=== PATIENT | female | born 1965 | race Caucasian/White ===

== ENCOUNTER 2019-10-18 08:44 | Outpatient (CLI) | payer MEDICARE, MEDICAID, SELFPAY ==
[2019-10-18 09:02] LABS: Basophils Absolute Auto 0.1 K/mm3 (0.0-0.1); Basophils Percent Auto 0.7 % (0.2-1.2); Eosinophils Absolute Auto 0.2 K/mm3 (0-0.3); Eosinophils Percent Auto 3.2 % (0-4.4); Hematocrit 46.6 % (37.0-47.0); Hemoglobin 14.7 g/dL (12.0-15.0); Immature Granulocyte Absolute 0.04 K/mm3 (0.00-0.031); Immature Granulocyte Percent A 0.5 % (0-0.5); Lymphocytes Absolute Auto 1.38 K/mm3 (0.9-3.2); Lymphocytes Percent Auto 18.6 % (18.3-44.2); Mean Corpuscular HGB Conc 31.5 g/dl (32-36); Mean Corpuscular Hemoglobin 27.6 pg (26-34); Mean Corpuscular Volume 87.6 fl (80-100); Mean Platelet Volume 8.7 fl (7.4-10.4); Monocytes Absolute Auto 0.6 K/mm3 (0.1-0.6); Monocytes Percent Auto 7.9 % (2.6-8.5); Neutrophils Absolute Auto 5.1 K/mm3 (1.3-6.7); Neutrophils Percent Auto 69.1 % (45.5-73.1); Platelet Count Result 398 k/mm3 (150-375); Red Blood Count 5.32 M/mm3 (4.2-5.4); Red Cell Distribution Width 14.7 % (11.5-14.5); White Blood Count 7.4 K/mm3 (4.5-10.0)
[2019-10-18 09:05] LABS: Blood Urea Nitrogen 11 mg/dL (8-26); Carbon Dioxide 26 mmol/L (22-30); Chloride 100 mmol/L (98-109); Estimated Glomerular Filt Rate > 60; Glucose 100 mg/dL (70-105); Potassium 4.3 mmol/L (3.5-4.9); Sodium 138 mmol/L (138-146)
[2019-10-18 12:16] LABS: Alanine Aminotransferase 39 U/L (4-35); Albumin Level 4.7 g/dL (3.5-5.1); Alkaline Phosphatase 111 U/L (38-126); Aspartate Amino Transferase 31 U/L (14-36); Bilirubin,Total 0.3 mg/dL (0.2-1.3); Blood Urea Nitrogen 12 mg/dL (7-17); Calcium 10.2 mg/dL (8.4-10.2); Carbon Dioxide 24 mmol/L (22-30); Chloride 97 mmol/L (98-107); Estimated Glomerular Filt Rate > 60; Glucose 101 mg/dL (65-105); Potassium 4.8 mmol/L (3.4-5.0); Sodium 140 mmol/L (137-145)
== END 2019-10-18 08:45 | disposition home or self-care (01) ==
LOC: ANHLAB 08:48
PROVIDERS: PCP Emergency Medicine; Visit Provider Internal Medicine Hematology & Oncology
DX: C81.91 Hodgkin lymphoma, unspecified, lymph nodes of head, face, and neck (principal)
CPT/HCPCS: 36415; 80048; 80053; 85025

== ENCOUNTER 2019-11-15 10:30 | Outpatient (CLI) | payer MEDICARE, MEDICAID, SELFPAY ==
[2019-11-15 11:44] LABS: Alanine Aminotransferase 46 U/L (4-35); Albumin Level 4.8 g/dL (3.5-5.1); Alkaline Phosphatase 98 U/L (38-126); Aspartate Amino Transferase 33 U/L (14-36); Bilirubin,Total 0.3 mg/dL (0.2-1.3); Blood Urea Nitrogen 11 mg/dL (7-17); Calcium 9.8 mg/dL (8.4-10.2); Carbon Dioxide 24 mmol/L (22-30); Chloride 103 mmol/L (98-107); Cholesterol 169 mg/dL (0-200); Estimated Glomerular Filt Rate > 60; Glucose 99 mg/dL (65-105); HDL Direct 39 mg/dL; Potassium 4.2 mmol/L (3.4-5.0); Sodium 138 mmol/L (137-145); Triglycerides 240 mg/dL (<150)
[2019-11-15 11:55] LABS: LDL Cholesterol Direct 126 mg/dL
[2019-11-15 12:54] LABS: Free T4 Free Thyroxine 1.52 ng/mL (0.78-2.19); Vitamin D 25 Hydroxy 37.2 ng/mL
[2019-11-15 12:59] LABS: Hemoglobin A1C 6.6 % (<5.7)
[2019-11-17 03:37] LABS: Triiodothyronine T3 Free 2.9 pg/mL (2.3-4.2)
[2019-11-17 05:49] LABS: Thyroid Peroxidase Antibodies <1 IU/mL (<9)
== END 2019-11-15 10:31 | disposition home or self-care (01) ==
PROVIDERS: PCP Emergency Medicine; Visit Provider Internal Medicine Endocrinology, Diabetes & Metabolism
DX: E11.9 Type 2 diabetes mellitus without complications (principal); E78.2 Mixed hyperlipidemia; E03.9 Hypothyroidism, unspecified; E55.9 Vitamin D deficiency, unspecified
CPT/HCPCS: 36415; 80053; 80061; 82306; 83036; 84439; 84443; 84481; 86376

== ENCOUNTER 2020-04-21 10:29 | Outpatient (CLI) | payer MEDICARE, MEDICAID, SELFPAY ==
[2020-04-21 10:52] LABS: Basophils Absolute Auto 0.1 K/mm3 (0.0-0.1); Basophils Percent Auto 0.8 % (0.2-1.2); Eosinophils Absolute Auto 0.3 K/mm3 (0-0.3); Eosinophils Percent Auto 3.2 % (0-4.4); Hematocrit 47.3 % (37.0-47.0); Hemoglobin 15.1 g/dL (12.0-15.0); Immature Granulocyte Absolute 0.05 K/mm3 (0.00-0.031); Immature Granulocyte Percent A 0.6 % (0-0.5); Lymphocytes Absolute Auto 1.57 K/mm3 (0.9-3.2); Lymphocytes Percent Auto 18.7 % (18.3-44.2); Mean Corpuscular HGB Conc 31.9 g/dl (32-36); Mean Corpuscular Volume 87.6 fl (80-100); Mean Platelet Volume 8.8 fl (7.4-10.4); Monocytes Absolute Auto 0.7 K/mm3 (0.1-0.6); Monocytes Percent Auto 7.8 % (2.6-8.5); Neutrophils Absolute Auto 5.8 K/mm3 (1.3-6.7); Neutrophils Percent Auto 68.9 % (45.5-73.1); Platelet Count Result 359 k/mm3 (150-375); Red Cell Distribution Width 15.2 % (11.5-14.5); White Blood Count 8.4 K/mm3 (4.5-10.0)
[2020-04-21 11:09] LABS: Atypical Lymphocytes Present; Platelet Estimate Adequate (Adequate)
[2020-04-21 13:43] LABS: Lactate Dehydrogenase 487 U/L (313-618)
[2020-04-21 16:37] LABS: Alanine Aminotransferase 73 U/L (4-35); Albumin Level 5.1 g/dL (3.5-5.1); Alkaline Phosphatase 110 U/L (38-126); Anion Gap 13 mmol/L (8-16); Aspartate Amino Transferase 69 U/L (14-36); Bilirubin,Total 0.3 mg/dL (0.2-1.3); Blood Urea Nitrogen 13 mg/dL (7-17); Carbon Dioxide 21 mmol/L (22-30); Chloride 101 mmol/L (98-107); Estimated Glomerular Filt Rate > 60; Glucose 122 mg/dL (65-105); Potassium 4.6 mmol/L (3.4-5.0); Sodium 135 mmol/L (137-145)
[2020-04-21 17:04] LABS: Erythrocyte Sedimentation Rate 6 mm/hr (0-20)
== END 2020-04-21 10:30 | disposition home or self-care (01) ==
PROVIDERS: PCP Emergency Medicine; Visit Provider Internal Medicine Hematology & Oncology
DX: C81.91 Hodgkin lymphoma, unspecified, lymph nodes of head, face, and neck (principal)
CPT/HCPCS: 36415; 80053; 83615; 85025; 85652

== ENCOUNTER 2020-06-12 10:06 | Outpatient (CLI) | payer MEDICARE, MEDICAID, SELFPAY ==
--- NOTE | ~2020-06-12 | CT_ITS ---
EXAMINATION: CT chest wo con DATE: 06/12/2020 11:13 INDICATION: COPD, lung nodule TECHNIQUE: Computed tomography (CT) of the chest was performed without intravenous contrast. The dose -length product (DLP) was 145.40 mGy-cm. Automated exposure control and iterative reconstruction tech [employer] were employed. COMPARISON: 06/10/2019 FINDINGS: There is severe emphysema. Again noted is a stable 12 mm pleural-based nodule of the right lower lobe abutting the diaphragm. No new or suspicious pulmonary nodule is identified. There is mild dependent atelectasis. No pleural effusion or pneumothorax is identified. No pathologically enlarged thoracic lymph nodes are identified. The heart size is normal. Calcified coronary artery atheroscler osis is noted. There is a moderate-sized sliding hiatal hernia. The liver is diffusely low in attenua tion when compared with the spleen, consistent with hepatic steatosis. A chronic compression fracture of the T9 vertebral body is unchanged. IMPRESSION: 1. Stable pleural-based nodule of the right lower lobe, consistent with scarring or prior infection. No suspicious pulmonary nodule identified. 2. Severe emphysema. Reviewed, dictated and finalized at location A. IMPRESSION: 1. Stable pleural-based nodule of the right lower lobe, consistent with scarrin g or prior infection. No suspicious pulmonary nodule identified. 2. Severe emphysema.
== END 2020-06-12 10:07 | disposition home or self-care (01) ==
PROVIDERS: PCP Emergency Medicine; Visit Provider Nurse Practitioner Adult Health
DX: J44.1 Chronic obstructive pulmonary disease with (acute) exacerbation (principal); R91.1 Solitary pulmonary nodule
CPT/HCPCS: 71250

== ENCOUNTER 2020-08-14 08:00 | Outpatient (CLI) | payer MEDICARE, MEDICAID, SELFPAY ==
--- NOTE | ~2020-08-14 | US_ITS ---
EXAMINATION: US thyroid DATE: 08/14/2020 08:29 INDICATION: Thyroid nodules TECHNIQUE: Multiple ultrasound images of the thyroid were obtained. COMPARISON: 11/20/2018 FINDINGS: The right thyroid lobe measures 4.1 x 1.6 x 2.0 cm. The left thyroid lobe measures 3.9 x 1.3 x 1.7 c m. And seen is heterogeneous decreased echogenicity and coarsened echotexture and mildly increased va scular flow on color Doppler throughout the thyroid. No discrete nodules identified. IMPRESSION: 1. Heterogeneous hypervascular thyroid consistent with chronic lymphocytic ([place]) thyroiditis. N o discrete thyroid nodules. Reviewed, dictated and finalized at location A. SCREW MAN IMPRESSION: 1. Heterogeneous hypervascular thyroid consistent with chronic lymphocytic ([place]) thyroiditis. No discrete thyroid nodules.
[2020-08-14 09:39] LABS: Hematocrit 43.9 % (37.0-47.0); Hemoglobin 14.3 g/dL (12.0-15.0); Mean Corpuscular HGB Conc 32.6 g/dl (32-36); Mean Corpuscular Hemoglobin 28.5 pg (26-34); Mean Corpuscular Volume 87.5 fl (80-100); Mean Platelet Volume 8.9 fl (7.4-10.4); Platelet Count Result 334 k/mm3 (150-375); Red Blood Count 5.02 M/mm3 (4.2-5.4); Red Cell Distribution Width 14.6 % (11.5-14.5); White Blood Count 9.4 K/mm3 (4.5-10.0)
[2020-08-14 09:42] LABS: Add Urine Microscopic? NO; Appearance Urine Clear (Clear); Bilirubin Urine Negative (Negative); Blood Urine Negative (Negative); Color Urine Yellow (Yellow); Glucose Urine UA Negative (Negative); Ketones Urine Negative (Negative); Leukocyte Esterase Ur Negative LEU/UL (NEGATIVE); Nitrate Urine Negative (Negative); Protein Urine Negative (Negative); Specific Grav Ur 1.014 (1.001-1.035); Urobilinogen Urine Negative mg/dL (<2.0)
[2020-08-14 10:04] LABS: Alanine Aminotransferase 87 U/L (4-35); Albumin Level 4.3 g/dL (3.5-5.1); Alkaline Phosphatase 123 U/L (38-126); Anion Gap 8 mmol/L (8-16); Aspartate Amino Transferase 116 U/L (14-36); Bilirubin,Total 0.3 mg/dL (0.2-1.3); Blood Urea Nitrogen 7 mg/dL (7-17); Calcium 9.5 mg/dL (8.4-10.2); Carbon Dioxide 29 mmol/L (22-30); Chloride 101 mmol/L (98-107); Cholesterol 213 mg/dL (0-200); Estimated Glomerular Filt Rate > 60; Glucose 151 mg/dL (65-105); HDL Direct 33 mg/dL; Potassium 4.3 mmol/L (3.4-5.0); Sodium 138 mmol/L (137-145); Triglycerides 408 mg/dL (<150)
[2020-08-14 10:14] LABS: LDL Cholesterol Direct 145 mg/dL
[2020-08-14 10:43] LABS: Hemoglobin A1C 7.5 % (<5.7)
[2020-08-14 11:12] LABS: Free T4 Free Thyroxine 0.85 ng/mL (0.78-2.19); Vitamin D 25 Hydroxy 20.5 ng/mL
[2020-08-14 14:53] LABS: Creatinine Urine 90.9 mg/dL
[2020-08-14 14:59] LABS: Microalbumin Urine Random 8.2 mg/L (0-16.7)
[2020-08-17 14:33] LABS: Triiodothyronine T3 Free 2.9 pg/mL (2.3-4.2)
== END 2020-08-14 08:01 | disposition home or self-care (01) ==
PROVIDERS: PCP Emergency Medicine; Referring Provider Internal Medicine Endocrinology, Diabetes & Metabolism; Visit Provider Emergency Medicine
DX: Z12.31 Encounter for screening mammogram for malignant neoplasm of breast (principal); E06.9 Thyroiditis, unspecified; E55.9 Vitamin D deficiency, unspecified; E78.5 Hyperlipidemia, unspecified; E03.9 Hypothyroidism, unspecified; K76.0 Fatty (change of) liver, not elsewhere classified; J44.9 Chronic obstructive pulmonary disease, unspecified; E11.9 Type 2 diabetes mellitus without complications
CPT/HCPCS: 36415; 76536; 80053; 80061; 81003; 82043; 82306; 83036; 84439; 84443; 84481; 85027

== ENCOUNTER 2020-09-05 07:49 | Outpatient (CLI) | payer MEDICARE, MEDICAID, SELFPAY ==
--- NOTE | ~2020-09-05 | MM_ITS ---
EXAMINATION: MM screening [facility] BI w saundra HISTORY: Screening TECHNIQUE: Craniocaudal and mediolateral oblique 3-D tomosynthesis images were obtained and synthetic 2-D images were generated. CAD analysis was submitted and interpreted. COMPARISON: Comparison to multiple prior studies sequentially, with oldest reviewed study dated 11/2014. BREAST PARENCHYMAL COMPOSITION: There are scattered areas of fibroglandular density. FINDINGS: The left breast is stable without evidence for malignancy. There is a new cluster of puncta te nonspecific calcifications in the lower central aspect of the right breast. No significant change to clustered punctate monomorphic calcifications upper outer quadrant of the right breast which were previously biopsied and proven benign. IMPRESSION: 1. New cluster of indeterminate right breast calcifications lower central aspect, middle third. 2. Magnification views are recommended. BI-RADS Category 0: Incomplete: Needs additional imaging evaluation. Reviewed, dictated and finalized at location A. RY MACHINE OPERATOR IMPRESSION: 1. New cluster of indeterminate right breast calcifications lower central aspec t, middle third. 2. Magnification views are recommended. BI-RADS Category 0: Incomplete: Needs additional imaging evaluation.
== END 2020-09-05 07:50 | disposition home or self-care (01) ==
LOC: ANHIMG 07:57
PROVIDERS: PCP Emergency Medicine; Visit Provider Emergency Medicine
DX: Z12.31 Encounter for screening mammogram for malignant neoplasm of breast (principal); R92.8 Other abnormal and inconclusive findings on diagnostic imaging of breast
CPT/HCPCS: 77063; 77067

== ENCOUNTER 2020-09-18 09:13 | Outpatient (CLI) | payer MEDICARE, MEDICAID, SELFPAY ==
--- NOTE | ~2020-09-18 | US_ITS ---
EXAMINATION: US abdomen limited EXAM DATE: 09/18/2020 09:48 INDICATION: Abnormal liver function tests. TECHNIQUE: Multiple grayscale and Doppler images of the abdomen right upper quadrant were obtained (stacey y a technologist who performed the scan) and subsequently reviewed. Comparison is made to prior exami nation from 07/10/2015. FINDINGS: The pancreatic head and body are normal in appearance. The pancreatic tail is not visualized. There is echogenic liver parenchyma, hepatic steatosis. There are no focal liver lesions identified. Th ere is no evidence of intrahepatic biliary duct dilation. Portal venous flow was seen in the hepatop edal, normal direction and has normal Doppler waveform. No right-sided hydronephrosis. Common bile duct measures 5 mm, which is normal. The gallbladder wall is normal in thickness, with ex pected amount of distention. No sonographic evidence of pericholecystic fluid. There is a 5 mm gall bladder polyp, either stable or decreased in size and requiring no further follow-up. Technologist p erforming exam reports patient did not demonstrate sonographic Thomason's sign. Please note that this sign is less reliable in patients who have received pain medication. IMPRESSION: 1. Hepatic steatosis. 2. Small gallbladder polyp. Reviewed, dictated and finalized at location B. PRESSER
--- NOTE | ~2020-09-18 | NM_ITS ---
. EXAMINATION: NM hepatobiliary w pharm DATE: 09/18/2020 12:16 INDICATION: Right upper quadrant abdominal pain. COMPARISON: Ultrasound 09/18/2020 TECHNIQUE: 5.4 mCi Tc-99m mebrofenin (Choletec) was administered intravenously. Scintigraphic images of the abdomen were obtained for one hour. Then, 1.8 mcg sincalide (Kinevac) IV was administered, an d imaging was continued for 30 minutes. FINDINGS: There is normal clearance of radiotracer from the blood pool. There is homogeneous tracer u ptake by the liver. Activity progresses to the bowel and gallbladder. Gallbladder ejection fraction (GBEF) was 74%. Note that most patients with gallbladder dysfunction have GBEF < 35%, which overlaps with the broad normal range of 10-90%. IMPRESSION: 1. Normal hepatobiliary scintigraphy. Reviewed, dictated and finalized at location A. HOL AND DRUG COUNSELOR
== END 2020-09-18 09:14 | disposition home or self-care (01) ==
PROVIDERS: PCP Emergency Medicine; Referring Provider Internal Medicine Endocrinology, Diabetes & Metabolism; Visit Provider Nurse Practitioner Family
DX: R74.8 Abnormal levels of other serum enzymes (principal); K76.0 Fatty (change of) liver, not elsewhere classified; K82.4 Cholesterolosis of gallbladder
CPT/HCPCS: 76705; 78227; A9537; J2805

== ENCOUNTER 2020-10-16 10:04 | Outpatient (CLI) | payer MEDICARE, MEDICAID, SELFPAY ==
[2020-10-16 10:28] LABS: Basophils Absolute Auto 0.1 K/mm3 (0.0-0.1); Eosinophils Absolute Auto 0.3 K/mm3 (0-0.3); Eosinophils Percent Auto 3.5 % (0-4.4); Hematocrit 48.5 % (37.0-47.0); Hemoglobin 15.2 g/dL (12.0-15.0); Immature Granulocyte Absolute 0.04 K/mm3 (0.00-0.031); Immature Granulocyte Percent A 0.5 % (0-0.5); Lymphocytes Absolute Auto 1.48 K/mm3 (0.9-3.2); Lymphocytes Percent Auto 17.9 % (18.3-44.2); Mean Corpuscular HGB Conc 31.3 g/dl (32-36); Mean Corpuscular Hemoglobin 27.6 pg (26-34); Mean Platelet Volume 8.7 fl (7.4-10.4); Monocytes Absolute Auto 0.5 K/mm3 (0.1-0.6); Monocytes Percent Auto 6.5 % (2.6-8.5); Neutrophils Absolute Auto 5.8 K/mm3 (1.3-6.7); Neutrophils Percent Auto 70.6 % (45.5-73.1); Platelet Count Result 373 k/mm3 (150-375); Red Blood Count 5.51 M/mm3 (4.2-5.4); Red Cell Distribution Width 14.9 % (11.5-14.5); White Blood Count 8.3 K/mm3 (4.5-10.0)
[2020-10-16 10:41] LABS: Blood Urea Nitrogen 13 mg/dL (8-26); Carbon Dioxide 27 mmol/L (22-30); Chloride 102 mmol/L (98-109); Estimated Glomerular Filt Rate > 60; Glucose 95 mg/dL (70-105); Potassium 4.2 mmol/L (3.5-4.9); Sodium 138 mmol/L (138-146)
[2020-10-16 13:19] LABS: Alanine Aminotransferase 129 U/L (4-35); Albumin Level 4.8 g/dL (3.5-5.1); Alkaline Phosphatase 93 U/L (38-126); Anion Gap 9 mmol/L (8-16); Aspartate Amino Transferase 137 U/L (14-36); Bilirubin,Total 0.5 mg/dL (0.2-1.3); Blood Urea Nitrogen 14 mg/dL (7-17); Calcium 10.2 mg/dL (8.4-10.2); Carbon Dioxide 28 mmol/L (22-30); Chloride 102 mmol/L (98-107); Estimated Glomerular Filt Rate > 60; Glucose 98 mg/dL (65-105); Lactate Dehydrogenase 609 U/L (313-618); Potassium 4.8 mmol/L (3.4-5.0); Sodium 139 mmol/L (137-145)
[2020-10-16 13:55] LABS: Erythrocyte Sedimentation Rate 4 mm/hr (0-20)
== END 2020-10-16 10:05 | disposition home or self-care (01) ==
LOC: ANHLAB 10:07
PROVIDERS: PCP Emergency Medicine; Visit Provider Internal Medicine Hematology & Oncology
DX: C81.91 Hodgkin lymphoma, unspecified, lymph nodes of head, face, and neck (principal)
CPT/HCPCS: 36415; 80048; 80053; 83615; 85025; 85652

== ENCOUNTER 2020-11-24 12:07 | Outpatient (CLI) | payer MEDICARE, MEDICAID, SELFPAY ==
[2020-11-24 13:00] LABS: Alanine Aminotransferase 83 U/L (4-35); Albumin Level 4.6 g/dL (3.5-5.1); Alkaline Phosphatase 96 U/L (38-126); Anion Gap 9 mmol/L (8-16); Aspartate Amino Transferase 85 U/L (14-36); Bilirubin,Total 0.4 mg/dL (0.2-1.3); Blood Urea Nitrogen 12 mg/dL (7-17); Calcium 9.7 mg/dL (8.4-10.2); Carbon Dioxide 25 mmol/L (22-30); Chloride 104 mmol/L (98-107); Cholesterol 234 mg/dL (0-200); Estimated Glomerular Filt Rate > 60; Glucose 100 mg/dL (65-105); HDL Direct 40 mg/dL; Potassium 4.3 mmol/L (3.4-5.0); Sodium 138 mmol/L (137-145); Triglycerides 248 mg/dL (<150)
[2020-11-24 13:14] LABS: LDL Cholesterol Direct 159 mg/dL
[2020-11-24 13:32] LABS: Creatinine Urine 56.9 mg/dL
[2020-11-24 13:47] LABS: Free T4 Free Thyroxine 1.77 ng/mL (0.78-2.19); Vitamin D 25 Hydroxy 47.7 ng/mL
[2020-11-24 13:48] LABS: MALB Creatinine Ratio < 10.5 mg/g (0-30); Microalbumin Urine Random < 6.0 mg/L (0-16.7)
[2020-11-27 03:27] LABS: Thyroid Peroxidase Antibodies <1 IU/mL (<9)
[2020-11-27 08:09] LABS: Triiodothyronine T3 Free 2.9 pg/mL (2.3-4.2)
== END 2020-11-24 12:08 | disposition home or self-care (01) ==
PROVIDERS: PCP Emergency Medicine; Visit Provider Nurse Practitioner Family
DX: E78.2 Mixed hyperlipidemia (principal); E11.65 Type 2 diabetes mellitus with hyperglycemia; E55.9 Vitamin D deficiency, unspecified; E06.3 Autoimmune thyroiditis
CPT/HCPCS: 36415; 77065; 80053; 80061; 82043; 82306; 83036; 84439; 84443; 84481; 86376

== ENCOUNTER 2020-11-24 12:33 | Outpatient (CLI) | payer MEDICARE, MEDICAID, SELFPAY ==
--- NOTE | ~2020-11-24 | MM_ITS ---
EXAMINATION: MM diagnostic mammo unilat RT HISTORY: Follow-up right breast calcifications TECHNIQUE: Additional 3-D tomosynthesis images of the right breast were performed and synthetic 2-D i mages were generated. CAD analysis was submitted and interpreted. COMPARISON: Comparison to multiple prior studies sequentially, with oldest reviewed study dated 06/06. BREAST PARENCHYMAL COMPOSITION: Breast composed of scattered areas of fibroglandular density. FINDINGS: There is a cluster of indeterminate calcifications in the upper outer quadrant of the right breast, middle third. There are no suspicious masses or architectural distortion. IMPRESSION: 1. Cluster of indeterminate right breast calcifications, upper outer quadrant, middle third. 2. Stereotactic right breast biopsy recommended. BI-RADS category 4, suspicious findings. Reviewed, dictated and finalized at location A.
== END 2020-11-24 12:34 | disposition home or self-care (01) ==
PROVIDERS: PCP Emergency Medicine; Visit Provider Emergency Medicine
DX: R92.8 Other abnormal and inconclusive findings on diagnostic imaging of breast (principal)
CPT/HCPCS: 77065

== ENCOUNTER 2020-12-07 12:50 | Outpatient (CLI) | payer MEDICARE, MEDICAID, SELFPAY ==
--- NOTE | ~2020-12-07 | MM_ITS ---
MM consultation 12/07/2020 14:26 Indication: Clustered calcifications lower outer quadrant of the right breast. Biopsy requested. Procedure: Written informed consent was obtained from the patient following discussion of risk and be nefits of stereotactic biopsy procedure. Multiple positions were attempted to localize the calcificat ions of interest in the right breast without success due to the faint density of the calcifications. Biopsy could not be performed and was discussed with the patient. Comparison: 11/24/2020 Findings: Procedure was canceled due to inability to localize the calcifications of interest during s tereotactic positioning. Impression: 1: Unsuccessful stereotactic right breast biopsy attempt. Recommend biopsy using wire localization gu ided surgical biopsy for further assessment. Alternatively, the patient may follow-up in 2 months for repeat diagnostic mammogram given that the initial screening mammogram was performed on 09/05/2022 t o achieve 6 months stability. Findings discussed with the patient. [facility] for determining follow-up examination/procedure. Reviewed, dictated and finalized at location B. Impression: 1: Unsuccessful stereotactic right breast biopsy attempt. Recommend biopsy usin g wire localization guided surgical biopsy for further assessment. Alternativel y, the patient may follow-up in 2 months for repeat diagnostic mammogram given that the initial screening mammogram was performed on 09/05/2022 to achieve 6 m onths stability. Findings discussed with the patient. Recommend consultation wi patient's physician for determining follow-up examination/procedure.
--- NOTE | ~2020-12-07 | MM_ITS ---
EXAMINATION: MM consultation INDICATION: Right breast calcifications COMPARISON: Mammograms dated 11/24/2020, 09/05/2020, and 05/19/2015 FINDINGS: Patient was scheduled for wire localization and excisional biopsy of grouped punctate calci fications in the anterior third of the slightly outer breast at the 7:00 location 4 cm from the nippl e. When compared to prior mammograms, the group of punctate calcifications identified for localizatio n appears to be stable. No suspicious mass or architectural distortion are identified. As such, short -term interval follow-up is recommended rather than surgical removal. These findings and recommendati on were discussed with Dr. Sanchez on 12/25/2020. IMPRESSION: 1. Probably benign right breast calcifications. 2. Recommend six month follow-up right diagnostic mammogram. BI-RADS category 3, probably benign findings. Reviewed, dictated and finalized at location A.
== END 2020-12-07 12:51 | disposition home or self-care (01) ==
PROVIDERS: PCP Emergency Medicine; Visit Provider Emergency Medicine
DX: R92.1 Mammographic calcification found on diagnostic imaging of breast (principal)
CPT/HCPCS: 99199

== ENCOUNTER 2020-12-22 10:39 | Outpatient (CLI) | payer MEDICARE, MEDICAID, SELFPAY ==
--- NOTE | 2020-12-22 10:40 | ECG_ITS ---
Measurements Intervals [place] Rate: 68 P: -4 [place]: 150 QRS: -43 QRSD: 90 T: 16 QT: 379 QTc: 406 Interpretive Statements SINUS RHYTHM LEFT AXIS DEVIATION INCOMPLETE RIGHT BUNDLE BRANCH BLOCK BORDERLINE T WAVE ABNORMALITY- ANTERIOR LEADS BASELINE ARTIFACT- I, II, III, AVR, AVL, AVF, V4-V6 BORDERLINE ECG Electronically Signed On 12-22-2020 11:57:11 CDT by Javier Radford D.O.
== END 2020-12-22 10:40 | disposition home or self-care (01) ==
LOC: ANHSURGERY 10:40
PROVIDERS: PCP Emergency Medicine; Visit Provider Surgery
DX: E78.5 Hyperlipidemia, unspecified (principal); F17.210 Nicotine dependence, cigarettes, uncomplicated; E11.9 Type 2 diabetes mellitus without complications; I45.10 Unspecified right bundle-branch block
CPT/HCPCS: 93005

== ENCOUNTER 2020-12-27 08:33 | Outpatient (CLI) | payer MEDICARE, MEDICAID, SELFPAY ==
[2020-12-27 08:45] VITALS: PULSE 74; O2SAT 96
[2020-12-27 08:50] VITALS: PULSE 92; O2SAT 86
[2020-12-27 08:55] VITALS: PULSE 96; O2SAT 88
[2020-12-27 09:00] VITALS: PULSE 98; O2SAT 90
[2020-12-27 09:15] VITALS: PULSE 76; O2SAT 95
--- NOTE | 2020-12-27 09:50 | HOMEO2EVAL ---
Evaluation was performed at [facility] Home Oxygen Evaluation RC: Home Oxygen (O2) Evaluation Start: 12/27/20 09:44 Freq: Status: Active Protocol: RPE Activity Type Activity Date Activity User E-Sign Co-Sign Detail Recorded Client Recorded Date Recorded By Document 12/27/20 08:45 [email or web address] [id number] 12/27/20 09:50 KMV Document 12/27/20 08:50 [email or web address] [email or web address] 12/27/20 09:50 KMV Document 12/27/20 08:55 KMV [email or web address] 12/27/20 09:50 KMV Document 12/27/20 09:00 [email or web address] [email or web address] 12/27/20 09:50 KMV Document 12/27/20 09:15 [email or web address] [id number] 12/27/20 09:50 KMV 12/27/20 12/27/20 12/27/20 08:45 08:50 08:55 Home O2 Evaluation Test Phase Resting Exercise Exercise Oxygen Delivery Room Air Room Air Nasal Cannula Oxygen Flow Rate (L/min) 1 Pulse Oximetry (90-100 %) 96 86 L 88 L Pulse Rate (60-100 beats/min) 74 92 96 Activity Tolerance Ambulation Distance (feet) Treatment Charges O2 Evaluation - Outpatient 12/27/20 12/27/20 09:00 09:15 Home O2 Evaluation Test Phase Exercise Resting Oxygen Delivery Nasal Cannula Room Air Oxygen Flow Rate (L/min) 2 Pulse Oximetry (90-100 %) 90 95 Pulse Rate (60-100 beats/min) 98 76 Activity Tolerance Good Ambulation Distance (feet) 1,000 Treatment Charges
== END 2020-12-27 08:34 | disposition home or self-care (01) ==
PROVIDERS: PCP Emergency Medicine; Visit Provider Internal Medicine Endocrinology, Diabetes & Metabolism
DX: R06.00 Dyspnea, unspecified (principal)
CPT/HCPCS: 94618

== ENCOUNTER 2021-02-28 09:00 | Outpatient (CLI) | payer MEDICARE, MEDICAID, SELFPAY ==
[2021-02-28 10:18] LABS: Alanine Aminotransferase 87 U/L (4-35); Albumin Level 4.4 g/dL (3.5-5.1); Alkaline Phosphatase 90 U/L (38-126); Anion Gap 9 mmol/L (8-16); Aspartate Amino Transferase 106 U/L (14-36); Bilirubin,Total 0.4 mg/dL (0.2-1.3); Blood Urea Nitrogen 9 mg/dL (7-17); Calcium 10.4 mg/dL (8.4-10.2); Carbon Dioxide 29 mmol/L (22-30); Chloride 103 mmol/L (98-107); Cholesterol 234 mg/dL (0-200); Estimated Glomerular Filt Rate > 60; Glucose 91 mg/dL (65-105); HDL Direct 46 mg/dL; Potassium 4.4 mmol/L (3.4-5.0); Sodium 141 mmol/L (137-145); Triglycerides 231 mg/dL (<150)
[2021-02-28 10:29] LABS: Hemoglobin A1C 6.3 % (<5.7); LDL Cholesterol Direct 142 mg/dL
[2021-02-28 11:35] LABS: MALB Creatinine Ratio < 25.0 mg/g (0-30); Microalbumin Urine Random < 6.0 mg/L (0-16.7)
[2021-02-28 11:43] LABS: Free T4 Free Thyroxine 1.35 ng/mL (0.78-2.19)
== END 2021-02-28 09:01 | disposition home or self-care (01) ==
PROVIDERS: PCP Emergency Medicine; Visit Provider Internal Medicine Endocrinology, Diabetes & Metabolism
DX: R73.03 Prediabetes (principal); E03.9 Hypothyroidism, unspecified; E78.2 Mixed hyperlipidemia
CPT/HCPCS: 36415; 80053; 80061; 82043; 83036; 84439; 84443

== ENCOUNTER 2021-04-16 09:12 | Outpatient (CLI) | payer MEDICARE, MEDICAID, SELFPAY ==
[2021-04-16 09:34] LABS: Basophils Absolute Auto 0.1 K/mm3 (0.0-0.1); Basophils Percent Auto 0.7 % (0.2-1.2); Eosinophils Absolute Auto 0.3 K/mm3 (0-0.3); Eosinophils Percent Auto 3.9 % (0-4.4); Hematocrit 45.4 % (37.0-47.0); Hemoglobin 14.5 g/dL (12.0-15.0); Immature Granulocyte Absolute 0.07 K/mm3 (0.00-0.031); Immature Granulocyte Percent A 0.8 % (0-0.5); Lymphocytes Percent Auto 16.2 % (18.3-44.2); Mean Corpuscular HGB Conc 31.9 g/dl (32-36); Mean Corpuscular Hemoglobin 28.3 pg (26-34); Mean Corpuscular Volume 88.5 fl (80-100); Mean Platelet Volume 8.9 fl (7.4-10.4); Monocytes Absolute Auto 0.5 K/mm3 (0.1-0.6); Monocytes Percent Auto 6.1 % (2.6-8.5); Neutrophils Absolute Auto 6.3 K/mm3 (1.3-6.7); Neutrophils Percent Auto 72.3 % (45.5-73.1); Platelet Count Result 301 k/mm3 (150-375); Red Blood Count 5.13 M/mm3 (4.2-5.4); Red Cell Distribution Width 14.8 % (11.5-14.5); White Blood Count 8.7 K/mm3 (4.5-10.0)
[2021-04-16 09:38] LABS: Blood Urea Nitrogen 12 mg/dL (8-26); Carbon Dioxide 27 mmol/L (22-30); Chloride 100 mmol/L (98-109); Estimated Glomerular Filt Rate > 60; Glucose 188 mg/dL (70-105); Sodium 142 mmol/L (138-146)
[2021-04-16 12:42] LABS: Alanine Aminotransferase 82 U/L (4-35); Albumin Level 4.2 g/dL (3.5-5.1); Alkaline Phosphatase 112 U/L (38-126); Anion Gap 7 mmol/L (8-16); Aspartate Amino Transferase 80 U/L (14-36); Bilirubin,Total 0.4 mg/dL (0.2-1.3); Blood Urea Nitrogen 12 mg/dL (7-17); Calcium 9.9 mg/dL (8.4-10.2); Carbon Dioxide 27 mmol/L (22-30); Chloride 105 mmol/L (98-107); Estimated Glomerular Filt Rate > 60; Glucose 183 mg/dL (65-110); Lactate Dehydrogenase 477 U/L (313-618); Potassium 4.3 mmol/L (3.4-5.0); Sodium 139 mmol/L (137-145)
== END 2021-04-16 09:13 | disposition home or self-care (01) ==
PROVIDERS: PCP Emergency Medicine; Visit Provider Internal Medicine Hematology & Oncology
DX: C81.91 Hodgkin lymphoma, unspecified, lymph nodes of head, face, and neck (principal)
CPT/HCPCS: 36415; 80048; 80053; 83615; 85025

== ENCOUNTER → 2021-06-30 02:53 | Outpatient (CLI) | payer MEDICARE, MEDICAID, SELFPAY ==
[2021-06-30 18:07] LABS: SARS-CoV-2 RNA PCR Negative
== END ==
PROVIDERS: PCP Emergency Medicine; Visit Provider Nurse Practitioner
DX: R05.9 Cough, unspecified (principal); Z20.822 Contact with and (suspected) exposure to COVID-19
CPT/HCPCS: C9803; U0003; U0005

== ENCOUNTER 2021-07-10 11:08 | Emergency (ER) | payer MEDICARE, MEDICAID, SELFPAY ==
--- NOTE | ~2021-07-10 | XR_ITS ---
EXAMINATION: XR chest 2V DATE: 07/10/2021 11:53 INDICATION: Shortness of breath TECHNIQUE: PA and lateral views of the chest are obtained. COMPARISON: 07/25/2017 FINDINGS: Lucencies of the upper lung zones are consistent with emphysema. The lungs are free of acut e opacities. There is no pleural effusion or pneumothorax. The cardiomediastinal silhouette is normal . There is mild thoracic spondylosis. IMPRESSION: 1. Emphysema. Reviewed, dictated and finalized at location B. IMPRESSION: 1. Emphysema.
[2021-07-10 11:17] VITALS: BP 147/85; PULSE 100; RESP 14; TEMP 36.7; O2SAT 95
--- NOTE | 2021-07-10 11:17 | ECG_ITS ---
Measurements Intervals [place] Rate: 86 P: 32 [place]: 146 QRS: -41 QRSD: 82 T: 13 QT: 353 QTc: 424 Interpretive Statements SINUS RHYTHM LEFT AXIS DEVIATION BORDERLINE T WAVE ABNORMALITY- ANT/INF LEADS BASELINE ARTIFACT- I, II, III, AVR, AVL, AVF, V1-V6 BORDERLINE ECG Electronically Signed On 07-10-2021 11:52:06 CDT by Javier Radford D.O.
[2021-07-10 11:39] LABS: Basophils Absolute Auto 0.1 K/mm3 (0.0-0.1); Basophils Percent Auto 0.7 % (0.2-1.2); Eosinophils Absolute Auto 0.3 K/mm3 (0-0.3); Eosinophils Percent Auto 2.6 % (0-4.4); Hematocrit 48.4 % (37.0-47.0); Hemoglobin 15.5 g/dL (12.0-15.0); Immature Granulocyte Absolute 0.13 K/mm3 (0.00-0.031); Immature Granulocyte Percent A 1.2 % (0-0.5); Lymphocytes Absolute Auto 1.77 K/mm3 (0.9-3.2); Lymphocytes Percent Auto 15.7 % (18.3-44.2); Mean Corpuscular Hemoglobin 29.2 pg (26-34); Mean Corpuscular Volume 91.3 fl (80-100); Mean Platelet Volume 9.6 fl (7.4-10.4); Monocytes Absolute Auto 0.8 K/mm3 (0.1-0.6); Monocytes Percent Auto 6.7 % (2.6-8.5); Neutrophils Absolute Auto 8.2 K/mm3 (1.3-6.7); Neutrophils Percent Auto 73.1 % (45.5-73.1); Platelet Count Result 320 k/mm3 (150-375); Red Cell Distribution Width 14.7 % (11.5-14.5); White Blood Count 11.3 K/mm3 (4.5-10.0)
[2021-07-10 12:18] LABS: Anion Gap 12 mmol/L (8-16); Blood Urea Nitrogen 15 mg/dL (7-17); Calcium 10.9 mg/dL (8.4-10.2); Carbon Dioxide 23 mmol/L (22-30); Chloride 103 mmol/L (98-107); Estimated Glomerular Filt Rate > 60; Glucose 121 mg/dL (65-110); Potassium 4.5 mmol/L (3.4-5.0); Sodium 138 mmol/L (137-145)
[2021-07-10] MEDS: IPRATROPIUM BR 0.02% INH SOLN 0.5 MG/2.5 ML VIAL INHALATION (14:08)
[2021-07-10] MEDS: ALBUTEROL SULFATE NEB 2.5 MG/0.5 ML INH 5 MG INHALATION (14:08)
--- NOTE | 2021-07-10 14:13 | ED.SOB ---
HPI - SOB/Dyspnea General Chief Complaint: Shortness of Breath/Dyspnea Stated Complaint: COPD EXACERBATION Time Seen by Provider: 07/10/21 13:50 Source: patient Mode of arrival: ambulatory Limitations: no limitations History of Present Illness HPI Narrative: This is a 56 year old female that presents to the ER for shortness of breath over the last week. Reports she saw her petroleum refining firer and has finished a Z pack and 5 days of a steroid with little relief. Reports she is supposed to wear 2L NC at all times, but did not bring it with her as it is too heavy. Does report a dry cough and some pain her right shoulder blade. Denies fever, or lower extremity edema. Related Data Home Medications Medication Instructions Recorded Confirmed albuterol sulfate 90 mcg/actuation 1 inh INHALATION Q4-6H PRN 12/13/20 12/20/20 breath activated powder inhaler alirocumab 75 mg/mL subcutaneous 75 mg SUBCUT [id number] 12/13/20 12/20/20 pen injector budesonide-formoterol HFA 160 2 puff INHALATION BID 12/13/20 12/20/20 mcg-4.5 mcg/actuation aerosol inhaler cholecalciferol (vitamin D3) 1,250 1,250 mcg PO WEEKLY 12/13/20 12/20/20 mcg (50,000 unit) capsule exenatide microspheres 2 mg/0.85 2 mg SUBCUT WEEKLY 12/13/20 12/20/20 mL subcutaneous auto-injector fenofibrate nanocrystallized 145 145 mg PO DAILY 12/13/20 12/20/20 mg tablet levothyroxine 100 mcg capsule 112 mcg PO DAILY 12/13/20 12/20/20 empagliflozin [Jardiance] 25 mg PO DAILY 12/20/20 12/20/20 icosapent ethyl [Vascepa] 2 g PO BID 12/20/20 12/20/20 Allergies Allergy/AdvReac Type Severity Reaction Status Date / Time latex Allergy Mild ITCHING Verified 12/20/20 09:19 Review of Systems Review of Systems: CONSTITUTIONAL: Denies fever CARDIOVASCULAR: Denies chest pain, or edema. RESPIRATORY: Reports cough and dyspnea. All systems reviewed & are unremarkable except as noted in HPI and below PMFSH Past Medical History Medical History Asthma Emphysema/COPD GERD (gastroesophageal reflux disease) High cholesterol History of gastric ulcer History of stroke Hodgkin lymphoma Hypothyroid Surgical History Surgical History H/O hand surgery H/O lymph node biopsy H/O right inguinal hernia repair H/O submandibular gland removal H/O: hysterectomy History of appendectomy History of bone marrow biopsy History of cardiac cath History of removal of Port-a-Cath Family History Family History Father Diabetes mellitus Grandparent Lymphoma Other Ovarian cancer Other Family history of cardiovascular disease Family history of malignant neoplasm Social History Social History Smoking packs per day: 1.25 Smoking cigarettes per day: 25.0 Years smoked: 40 Smoking pack-years: 50.00 Smoking status: Current every day smoker Tobacco type: cigarettes Second hand tobacco smoke exposure: Yes Additional smoking assessment comments: 1-2 PPD Alcohol intake: never Substance use: never Substance use type: does not use Spiritual care concerns: No Exam Narrative: GENERAL: Well-appearing, well-nourished, and in no acute distress. HEAD: Normocephalic, atraumatic. EYES: EOMI. ENT: Nares clear, no rhinorrhea or epistaxis. Mucous membranes moist. Oropharynx without tonsillar hypertrophy exudate or other lesions. Bilateral TMs pearly barragan non-bulging NECK: Supple. No adenopathy or masses. CHEST: No respiratory distress. Lung sounds mildly diminished throughout. No wheezes, rales or rhonchi HEART: Regular rate and rhythm. No murmur heard. Normal peripheral pulses. EXTREMITIES: Normal range of motion. No edema. SKIN: Warm, dry, no rash. NEURO: No focal deficits. Alert and oriented x3. PSYCH: Normal mood and affect Course Consultations Consulta
[2021-07-10 14:17] VITALS: PULSE 86; RESP 18; O2SAT 92
[2021-07-10 14:22] LABS: Alveolar/Arterial O2 Gradient 39.2 mmHg; Base Excess ABG 0.2 mEq/l (+/-2.0); Carboxyhemoglobin 5.3 % THb (0-2.0); Fractional Inspired Oxygen 21 %; HCO3 ABG 25.2 mEq/l (22.0-26.0); Methemoglobin ABG 0.2 %THb (0-1.5); Oxygen Content ABG 19.1 %vol (16.0-22.0); Oxygen Saturation ABG 91.1 % (95.0-100.0); Oxyhemoglobin 86.2 % THb (90.0-100.0); PCO2 ABG 41.9 mmHg (35.0-45.0); PO2 ABG 60.4 mmHg (80.0-100.0); PO2 FiO2 Ratio Arterial Blood 2.88 %; Reduced Hemoglobin 8.3 %THb (0-5.0); Total Hemoglobin 15.8 g/dL (12.0-18.0); pH ABG 7.397 (7.350-7.450)
[2021-07-10 14:23] LABS: Device ROOM AIR; Modified Allen's Test Pass; Site Drawn LEFT RADIAL
[2021-07-10 14:25] VITALS: PULSE 87; O2SAT 94
[2021-07-10] MEDS: methylPREDNISolone SOD SUCC 125 MG VIAL IV PUSH (14:27)
[2021-07-10 14:46] LABS: INR 0.9; Prothrombin Time 11.7 Seconds (11.1-14.7)
[2021-07-10 14:47] LABS: Partial Thromboplastin Time 31.6 SECONDS (22.3-36.8)
[2021-07-10 14:53] LABS: D Dimer 0.27 ug/mL (<0.48)
[2021-07-10 14:57] LABS: Troponin I < 0.012 ng/mL (0.000-0.034)
[2021-07-10 15:59] LABS: NT Pro B Type Natriuretic Pept 46 pg/mL (5-100)
[2021-07-10 16:56] VITALS: BP 139/95; PULSE 81; RESP 18; O2SAT 98
== END 2021-07-10 16:59 | disposition home or self-care (01) ==
PROVIDERS: Physician Assistant; Emergency Provider Emergency Medicine; PCP Emergency Medicine
DX: J44.1 Chronic obstructive pulmonary disease with (acute) exacerbation (principal); F17.210 Nicotine dependence, cigarettes, uncomplicated; K21.9 Gastro-esophageal reflux disease without esophagitis; E03.9 Hypothyroidism, unspecified; E78.5 Hyperlipidemia, unspecified
CPT/HCPCS: 36415; 36600; 71046; 80048; 82375; 82805; 83050; 83880; 84484; 85025; 85380; 85610; 85730; 93005; 94640; 96374; 99284; J2930

== ENCOUNTER 2021-09-24 17:39 | Inpatient (IN) | payer MEDICARE, MEDICAID, SELFPAY ==
--- NOTE | ~2021-09-24 | XR_ITS ---
EXAMINATION: XR chest 1V portable DATE: 09/24/2021 19:59 INDICATION: Cough. Shortness of breath. TECHNIQUE: A single frontal view of the chest was obtained. COMPARISON: Chest 2 views 07/10/2021, chest CT 06/12/2020 FINDINGS: There are lucencies in the upper lungs, consistent with emphysema. There are airspace opaci ties in right mid and lower lung zones. There are airspace opacities in all left lung zones, worst in the mid and lower lung zones. No pleural effusion or pneumothorax. The heart size is normal. IMPRESSION: 1. Diffuse lung disease, worst in the mid and lower lung zones, consistent with pneumonia. 2. Severe emphysema. Reviewed, dictated and finalized at location A. TRONIC EQUIPMENT SET UP OPERATOR
--- NOTE | ~2021-09-24 | CT_ITS ---
EXAMINATION:CT diagnostic chest wo con DATE: 09/26/2021 20:45 INDICATION: Pneumonia. TECHNIQUE: Computed tomography (CT) of the chest was performed without intravenous contrast. Automate d exposure control and iterative reconstruction technique were employed. The dose-length product (DLP ) was 344.67 mGy-cm. COMPARISON: Chest CT 06/12/2020, chest single view 09/24/2021 FINDINGS: There is severe emphysema. There is mild atelectasis bilaterally. No pleural effusion. The heart size is normal. There are coronary artery calcifications. No pericardial effusion. There is dif fuse hepatic steatosis. There is mild thoracic spondylosis. There is a chronic compression fracture o f T9. IMPRESSION: 1. Severe emphysema. Reviewed, dictated and finalized at location A. F LEARNING OFFICER IMPRESSION: 1. Severe emphysema.
[2021-09-24 17:45] VITALS: BP 151/72; PULSE 97; RESP 20; O2SAT 84
[2021-09-24 19:33] VITALS: BP 126/80; PULSE 81; RESP 20; O2SAT 97
[2021-09-24 19:35] VITALS: PULSE 81; O2SAT 97
--- NOTE | 2021-09-24 19:47 | ECG_ITS ---
Measurements Intervals [place] Rate: 84 P: 3 [place]: 146 QRS: -41 QRSD: 86 T: 29 QT: 369 QTc: 437 Interpretive Statements SINUS RHYTHM LEFT AXIS DEVIATION BORDERLINE T WAVE ABNORMALITY- ANTERIOR LEADS BASELINE ARTIFACT- I, II, AVR, AVL, AVF, V1-V6 BORDERLINE ECG Electronically Signed On 09-24-2021 20:11:39 TENNIS BALL COVERER HAND by Javier Radford D.O.
[2021-09-24 19:59] LABS: Basophils Absolute Auto 0.1 K/mm3 (0.0-0.1); Basophils Percent Auto 0.8 % (0.2-1.2); Eosinophils Absolute Auto 0.4 K/mm3 (0-0.3); Eosinophils Percent Auto 5.7 % (0-4.4); Hematocrit 46.4 % (37.0-47.0); Immature Granulocyte Absolute 0.05 K/mm3 (0.00-0.031); Immature Granulocyte Percent A 0.7 % (0-0.5); Lymphocytes Absolute Auto 1.58 K/mm3 (0.9-3.2); Lymphocytes Percent Auto 22.1 % (18.3-44.2); Mean Corpuscular HGB Conc 32.3 g/dl (32-36); Mean Corpuscular Hemoglobin 28.8 pg (26-34); Mean Corpuscular Volume 89.2 fl (80-100); Mean Platelet Volume 9.2 fl (7.4-10.4); Monocytes Absolute Auto 0.8 K/mm3 (0.1-0.6); Monocytes Percent Auto 11.1 % (2.6-8.5); Neutrophils Absolute Auto 4.3 K/mm3 (1.3-6.7); Neutrophils Percent Auto 59.6 % (45.5-73.1); Platelet Count Result 281 k/mm3 (150-375); White Blood Count 7.1 K/mm3 (4.5-10.0)
[2021-09-24 20:09] LABS: Alanine Aminotransferase 179 U/L (4-35); Albumin Level 4.5 g/dL (3.5-5.1); Alkaline Phosphatase 105 U/L (38-126); Anion Gap 12 mmol/L (8-16); Aspartate Amino Transferase 151 U/L (14-36); Bilirubin,Total 0.4 mg/dL (0.2-1.3); Blood Urea Nitrogen 17 mg/dL (7-17); Calcium 9.8 mg/dL (8.4-10.2); Carbon Dioxide 25 mmol/L (22-30); Chloride 99 mmol/L (98-107); Estimated CRCL calculation 120 ml/min; Estimated Glomerular Filt Rate > 60; Glucose 153 mg/dL (65-110); Sodium 136 mmol/L (137-145)
[2021-09-24 20:56] VITALS: BP 116/79; PULSE 93; RESP 19; O2SAT 93
--- NOTE | 2021-09-24 21:29 | ED.SOB ---
HPI - SOB/Dyspnea General Chief Complaint: Shortness of Breath/Dyspnea Stated Complaint: sob Time Seen by Provider: 09/24/21 20:05 Source: patient Mode of arrival: ambulatory Limitations: no limitations History of Present Illness HPI Narrative: 56-year-old with a history of COPD on 3 L here with the complaints of shortness of breath for past few days. She states that she has low-grade fever. She feels hot and cold. No history of chest pain. She denies any nausea or vomiting. Has COVID exposure. MD elicited complaint: shortness of breath Pertinent past history: COPD Onset (ago): day(s) (2) Severity: moderate Exacerbating factors: nothing Associated symptoms: denies other symptoms Treatment prior to arrival: none Related Data Home oxygen amount: 3 liters Home Medications Medication Instructions Recorded Confirmed albuterol sulfate 90 mcg/actuation 1 inh INHALATION Q4-6H PRN 12/13/20 12/20/20 breath activated powder inhaler alirocumab 75 mg/mL subcutaneous 75 mg SUBCUT [id number] 12/13/20 12/20/20 pen injector budesonide-formoterol HFA 160 2 puff INHALATION BID 12/13/20 12/20/20 mcg-4.5 mcg/actuation aerosol inhaler cholecalciferol (vitamin D3) 1,250 1,250 mcg PO WEEKLY 12/13/20 12/20/20 mcg (50,000 unit) capsule exenatide microspheres 2 mg/0.85 2 mg SUBCUT WEEKLY 12/13/20 12/20/20 mL subcutaneous auto-injector fenofibrate nanocrystallized 145 145 mg PO DAILY 12/13/20 12/20/20 mg tablet levothyroxine 100 mcg capsule 112 mcg PO DAILY 12/13/20 12/20/20 empagliflozin [Jardiance] 25 mg PO DAILY 12/20/20 12/20/20 icosapent ethyl [Vascepa] 2 g PO BID 12/20/20 12/20/20 Allergies Allergy/AdvReac Type Severity Reaction Status Date / Time latex Allergy Mild ITCHING Verified 09/24/21 19:36 Review of Systems Review of Systems: All systems reviewed & are unremarkable except as noted in HPI and below Constitutional: Constitutional: Reports no additional constitutional complaints Eyes: Eyes: Reports no additional eye complaints ENT: Reports system reviewed and no additional complaints, except as documented Cardiovascular: Cardiovascular: Reports no additional cardiovascular complaints Respiratory: Respiratory: Reports as per HPI Gastrointestinal: Gastrointestinal: Reports no additional gastrointestinal complaints Musculoskeletal: Musculoskeletal: Reports no additional musculoskeletal complaints Integumentary/Breasts: Skin/Breast: Reports system reviewed and no additional complaints, except as docu Neurologic: Reports system reviewed and no additional complaints, except as documented Psychiatric: Psychiatric: Reports no additional psychiatric complaints PMFSH Past Medical History Medical History Asthma Emphysema/COPD GERD (gastroesophageal reflux disease) High cholesterol History of gastric ulcer History of stroke Hodgkin lymphoma Hypothyroid Surgical History Surgical History H/O hand surgery H/O lymph node biopsy H/O right inguinal hernia repair H/O submandibular gland removal H/O: hysterectomy History of appendectomy History of bone marrow biopsy History of cardiac cath History of removal of Port-a-Cath Family History Family History Father Diabetes mellitus Grandparent Lymphoma Other Ovarian cancer Other Family history of cardiovascular disease Family history of malignant neoplasm Social History Social History Smoking packs per day: 1.25 Smoking cigarettes per day: 25.0 Years smoked: 40 Smoking pack-years: 50.00 Smoking status: Current every day smoker Tobacco type: cigarettes Second hand tobacco smoke exposure: Yes Additional smoking assessment comments: 1-2 PPD Alcohol intake: never Substance use: never Substance use type: does not use Sp
[2021-09-24 21:54] LABS: SARS-CoV-2 RNA PCR Negative
[2021-09-24 22:14] LABS: Influenza A QL RT-PCR Negative (Negative); Influenza B QL RT-PCR Negative (Negative)
--- NOTE | 2021-09-24 23:00 | PC.NURSE ---
hospitalist in room speaking with pt
[2021-09-25] VITALS (19 sets, daily range): BP systolic 105–128; BP diastolic 60–77; PULSE 78–88; RESP 14–20; TEMP 35.9–36.9; O2SAT 92–96; BMI 29.9
[2021-09-25] MEDS: SODIUM CHLORIDE 0.9% IV 1,000 ML 75 ML IV CONT (00:17)
--- NOTE | 2021-09-25 01:31 | PM.IMHP ---
H&P: HPI History of Present Illness Date/Time: 09/24/21 22:55 Chief Complaint: Shortness of breath, exposed to COVID Narrative: 56-year-old female with past medical history of COPD, chronic hypoxic respiratory failure and continued tobacco use who presented to the ER via private vehicle due to the increased shortness of breath. The patient reports that she was exposed to her daughter who tested positive for COVID on the 4th. Over the last 4 days the patient has developed rhinorrhea, postnasal drip and nonproductive cough. She has been having intermittent chills but has not checked her temperature. She reports complete loss of sense of smell in the last 24 hours. She states that her sense of taste is gone and she can only taste extremely sweet or extremely salty items. She denies any nausea or vomiting. She has had decreased appetite. She reports body aches. She denies having any chest pain. She has been more short of breath than usual. She denies having a chronic cough prior to onset of symptoms. She arrived to the ER on room air despite being on 3 L nasal cannula all times at home. She states that her oxygen is prescribed as 2 L during the day and 3 L at night but she said it is too much of a hassle to change her settings on her oxygen tanks. She is still smoking 1-2 packs of cigarettes per day. Review of Systems Review of Systems: 12 systems were reviewed with pertinent positives and negatives per HPI. Except as documented in the HPI, all other systems were reviewed and are negative. 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 Surgical History Surgical History (Updated 09/25/21 @ 01:41 by Janice Toth DO) H/O hand surgery ORIF left ring finger H/O lymph node biopsy Left anterior cervical chain, resection of the left submandibular gland due to increased uptake on PET scan and pathology was negative H/O submandibular gland removal H/O: hysterectomy With unilateral oophorectomy due to cervical dysplasia History of appendectomy History of bone marrow biopsy History of cardiac cath History of Lora fundoplication History of removal of Port-a-Cath Right chest Family History Family History (Updated 09/25/21 @ 01:43 by Janice Toth DO) Father Diabetes mellitus Hypertension Age older than 80 years Grandparent Lymphoma Other Ovarian cancer Mother Scoliosis Osteoporosis Age greater than 75 years Other Family history of cardiovascular disease Family history of malignant neoplasm Social History Social History (Updated 09/25/21 @ 01:45 by Janice Toth DO) Social History: She lives in a home with her ex [id number]. She is . She has 1 daughter and 3 grandchildren. She continues to smoke 1-2 packs of cigarettes per day and has done so since she was 12. She denies any history of heavy alcohol use in does not use any alcohol currently. She denies any a illicit substance use. Primary care physician: Dr. Biju Joe Code status: Full code however she would not want to remain on a ventilator for long-term. Surrogate decision maker: Daughter Smoking packs per day: 2 Smoking cigarettes per day: 40.0 Years smoked: 42 Smoking pack-years: 84.00 Smoking status: Current every day smoker Tobacco type: cigarettes Second hand tobacco smoke exposure: Yes Additional smoking assessment comments: 1-2 PPD Alcohol intake: never Substance use: never Substance use type: does not use Spiritual care concerns: No Meds Home Medications and Allergies Home Medications Medication Ins
[2021-09-25] MEDS: ALBUTEROL SULFATE NEB 2.5 MG/0.5 ML INH 5 MG INHALATION ×4 (02:43→20:59)
[2021-09-25] MEDS: IPRATROPIUM BR 0.02% INH SOLN 0.5 MG/2.5 ML VIAL INHALATION ×4 (02:43→20:59)
[2021-09-25 06:44] LABS: Basophils Percent Auto 0.7 % (0.2-1.2); Eosinophils Absolute Auto 0.3 K/mm3 (0-0.3); Eosinophils Percent Auto 5.5 % (0-4.4); Hematocrit 43.1 % (37.0-47.0); Hemoglobin 13.7 g/dL (12.0-15.0); Immature Granulocyte Absolute 0.03 K/mm3 (0.00-0.031); Immature Granulocyte Percent A 0.5 % (0-0.5); Lymphocytes Absolute Auto 1.51 K/mm3 (0.9-3.2); Lymphocytes Percent Auto 26.2 % (18.3-44.2); Mean Corpuscular HGB Conc 31.8 g/dl (32-36); Mean Corpuscular Hemoglobin 28.5 pg (26-34); Mean Corpuscular Volume 89.8 fl (80-100); Mean Platelet Volume 9.4 fl (7.4-10.4); Monocytes Absolute Auto 0.7 K/mm3 (0.1-0.6); Monocytes Percent Auto 12.8 % (2.6-8.5); Neutrophils Absolute Auto 3.1 K/mm3 (1.3-6.7); Neutrophils Percent Auto 54.3 % (45.5-73.1); Platelet Count Result 243 k/mm3 (150-375); White Blood Count 5.8 K/mm3 (4.5-10.0)
[2021-09-25] MEDS: LEVOTHYROXINE SODIUM 112 MCG TABLET PO (06:45)
[2021-09-25 07:00] LABS: Anion Gap 9 mmol/L (8-16); Blood Urea Nitrogen 14 mg/dL (7-17); Carbon Dioxide 27 mmol/L (22-30); Chloride 102 mmol/L (98-107); Estimated CRCL calculation 121 ml/min; Estimated Glomerular Filt Rate > 60; Glucose 129 mg/dL (65-110); Potassium 3.9 mmol/L (3.4-5.0); Sodium 138 mmol/L (137-145)
[2021-09-25] MEDS: EMPAGLIFLOZIN 25 MG TABLET PO (16:50)
[2021-09-25] MEDS: PANTOPRAZOLE 40 MG TABLET PO (16:52)
[2021-09-25] MEDS: OMEGA 3 POLYUNSAT FATTY ACIDS 1 GM CAP 2 GM PO (16:52)
[2021-09-25] MEDS: FENOFIBRATE NANOCRYSTALLIZED 145 MG TABLET PO (16:52)
[2021-09-25] MEDS: ACETAMINOPHEN 325 MG TABLET 650 MG PO (16:56)
--- NOTE | 2021-09-25 17:16 | PM.IMPN ---
Progress Note: A&P Assessment and Plan (1) Pneumonia: Qualifiers: Laterality: bilateral Lung location: unspecified part of lung Pneumonia type: due to unspecified organism Qualified Code(s): J18.9 - Pneumonia, unspecified organism Code(s): J18.9 - Pneumonia, unspecified organism Status: Acute Assessment and Plan: Patient presents recent symptoms suggestive of COVID. Rapid COVID19 antigen was negative in ED. Currently patient is being treated appropriately for COPD exacerbation. We will send the COVID PCR , influenza swab. Chest x-ray suggests D shows lung disease, consistent with pneumonia, and she was appropriately started on ceftriaxone and azithromycin. Continue droplet isolation while COVID PCR is pending. (2) COPD (chronic obstructive pulmonary disease): Qualifiers: COPD type: unspecified COPD Qualified Code(s): J44.9 - Chronic obstructive pulmonary disease, unspecified Code(s): J44.9 - Chronic obstructive pulmonary disease, unspecified Status: Acute Assessment and Plan: Patient present with symptoms suggesting COPD exacerbation. She was appropriately started on dexamethasone and scheduled nebulizer treatments. (3) On home oxygen therapy: Code(s): Z99.81 - Dependence on supplemental oxygen Status: Acute Assessment and Plan: Patient is on chronic oxygen 3 L via nasal cannula. No increased oxygen requirement. I have (4) Continuous tobacco abuse: Code(s): Z72.0 - Tobacco use Status: Acute Assessment and Plan: Patient was counseled regarding smoking cessation. Additional Plan The patient has pneumonia upon reviewing patient's chest x-ray and so suspicious of COVID pneumonia specially given her recent COVID exposures. Patient also has complete loss of sense of taste and smell highly suggestive of COVID. The patient has been placed on Decadron and scheduled nebulizer treatments. She is mildly increased oxygen requirement from baseline at 4 L nasal cannula. Patient has been vaccinated against COVID. Her rapid COVID PCR in the ER was negative. Better clinical picture still consistent with COVID. The patient has been placed on empiric antibiotic therapy with Rocephin and azithromycin the cover for possible bacterial component. Unfortunately the patient has significant emphysema noted on imaging with blebs in the upper lobes. The patient reports that she has tried to quit smoking multiple times. I have offered nicotine gum. Approximately 8 minutes was spent in tobacco cessation education. Subjective Date/time seen: 09/25/21 17:16 S: Patient was seen and examined at the bedside. She she was complaining of left hip pain; she was coughing during the encounter. Review of Systems Review of Systems: All systems reviewed & are unremarkable except as noted in HPI and below Constitutional: Constitutional: Reports as per HPI and Reports no additional constitutional complaints Eyes: Eyes: Reports as per HPI and Reports no additional eye complaints ENT: Reports system reviewed and no additional complaints, except as documented and Reports as per HPI Cardiovascular: Cardiovascular: Reports as per HPI and Reports no additional cardiovascular complaints Respiratory: Respiratory: Reports as per HPI, Reports cough, Reports dyspnea, Reports dyspnea on exertion and Reports wheezing Gastrointestinal: Gastrointestinal: Reports as per HPI, Denies diarrhea, Denies nausea and Denies vomiting Genitourinary: Genitourinary: Reports no additional female genitourinary complaints and Reports as per HPI Musculoskeletal: Musculoskeletal: Reports no additional musculoskeletal complaints and Reports as per HPI Integumentary/Breasts: Skin/Breast: Reports system reviewed and no additional complaints, except as docu and Reports as per HPI Neurologic: Reports system reviewed and no additional complaints, except as documented and Reports abnormal gait Psychiat
[2021-09-25] MEDS: LIDOCAINE 5% PATCH 1 PATCH TRANSDERM (20:05)
[2021-09-26] VITALS (14 sets, daily range): BP systolic 106–121; BP diastolic 55–74; PULSE 72–88; RESP 16–20; TEMP 36.2–36.5; O2SAT 91–96
[2021-09-26] MEDS: ALBUTEROL SULFATE NEB 2.5 MG/0.5 ML INH 5 MG INHALATION ×4 (02:46→20:23)
[2021-09-26] MEDS: IPRATROPIUM BR 0.02% INH SOLN 0.5 MG/2.5 ML VIAL INHALATION ×4 (02:46→20:23)
[2021-09-26] MEDS: LEVOTHYROXINE SODIUM 112 MCG TABLET PO (06:25)
[2021-09-26 08:16] LABS: SARS-CoV-2 RNA PCR Negative
[2021-09-26] MEDS: ENOXAPARIN 40 MG/0.4 ML SYRINGE SUB-Q (09:06)
--- NOTE | 2021-09-26 16:11 | PM.IMPN ---
Progress Note: A&P Assessment and Plan (1) Pneumonia: Qualifiers: Laterality: bilateral Lung location: unspecified part of lung Pneumonia type: due to unspecified organism Qualified Code(s): J18.9 - Pneumonia, unspecified organism Code(s): J18.9 - Pneumonia, unspecified organism Status: Acute Assessment and Plan: Patient presents recent symptoms suggestive of COVID. Influenza swab and COVID PCR were negative. Chest x-ray suggests diffuse lung disease, , consistent with pneumonia, in the setting of severe emphysema. She was appropriately started on ceftriaxone and azithromycin. S. Droplet isolation. Send Histoplasma, Streptococcus pneumoniae and Legionella urine antigens. Obtain regular chest CT. (2) COPD (chronic obstructive pulmonary disease): Qualifiers: COPD type: unspecified COPD Qualified Code(s): J44.9 - Chronic obstructive pulmonary disease, unspecified Code(s): J44.9 - Chronic obstructive pulmonary disease, unspecified Status: Acute Assessment and Plan: Patient present with symptoms suggesting COPD exacerbation. She was appropriately started on dexamethasone and scheduled nebulizer treatments. (3) On home oxygen therapy: Code(s): Z99.81 - Dependence on supplemental oxygen Status: Acute Assessment and Plan: Patient is on chronic oxygen 3 L via nasal cannula. No increased oxygen requirement. (4) Continuous tobacco abuse: Code(s): Z72.0 - Tobacco use Status: Acute Assessment and Plan: Patient was counseled regarding smoking cessation. Additional Plan The patient has pneumonia upon reviewing patient's chest x-ray and so suspicious of COVID pneumonia specially given her recent COVID exposures. Patient also has complete loss of sense of taste and smell highly suggestive of COVID. The patient has been placed on Decadron and scheduled nebulizer treatments. She is mildly increased oxygen requirement from baseline at 4 L nasal cannula. Patient has been vaccinated against COVID. Her rapid COVID PCR in the ER was negative. Better clinical picture still consistent with COVID. The patient has been placed on empiric antibiotic therapy with Rocephin and azithromycin the cover for possible bacterial component. Unfortunately the patient has significant emphysema noted on imaging with blebs in the upper lobes. The patient reports that she has tried to quit smoking multiple times. I have offered nicotine gum. Approximately 8 minutes was spent in tobacco cessation education. Subjective Date/time seen: 09/26/21 15:11 S: Patient was seen and examined at the bedside. She is complaining of cough and sore throat. Her breathing has remained the same. After COVID-19 PCR was negative, isolation was discontinued. Review of Systems Review of Systems: All systems reviewed & are unremarkable except as noted in HPI and below Constitutional: Constitutional: Reports as per HPI and Reports no additional constitutional complaints Eyes: Eyes: Reports as per HPI and Reports no additional eye complaints ENT: Reports system reviewed and no additional complaints, except as documented and Reports as per HPI Cardiovascular: Cardiovascular: Reports as per HPI, Reports no additional cardiovascular complaints, Reports dyspnea and Reports dyspnea on exertion Respiratory: Respiratory: Reports as per HPI, Reports cough, Reports dyspnea, Reports dyspnea on exertion and Reports wheezing Gastrointestinal: Gastrointestinal: Reports as per HPI, Denies diarrhea, Denies nausea and Denies vomiting Genitourinary: Genitourinary: Reports no additional female genitourinary complaints and Reports as per HPI Musculoskeletal: Musculoskeletal: Reports no additional musculoskeletal complaints, Reports as per HPI and Reports abnormal gait Integumentary/Breasts: Skin/Breast: Reports system reviewed and no additional complaints, except as docu and Reports as per HPI Neurologi
[2021-09-26] MEDS: BENZONATATE 100 MG CAPSULE 200 MG PO ×2 (16:50→20:51)
[2021-09-26] MEDS: PANTOPRAZOLE 40 MG TABLET PO (17:34)
[2021-09-26] MEDS: OMEGA 3 POLYUNSAT FATTY ACIDS 1 GM CAP 2 GM PO (17:34)
[2021-09-26] MEDS: FENOFIBRATE NANOCRYSTALLIZED 145 MG TABLET PO (17:35)
[2021-09-26] MEDS: EMPAGLIFLOZIN 25 MG TABLET PO (17:35)
[2021-09-26] MEDS: BENZOCAINE/MENTHOL (*BKC) 18 EA LOZENGE 1 LOZENGE PO (20:53)
[2021-09-26] MEDS: LIDOCAINE 5% PATCH 1 PATCH TRANSDERM (20:54)
[2021-09-26] MEDS: ACETAMINOPHEN 325 MG TABLET 650 MG PO (20:57)
[2021-09-27] VITALS (11 sets, daily range): BP systolic 102–121; BP diastolic 64–75; PULSE 66–82; RESP 16–20; TEMP 36.1–37.2; O2SAT 93–96
[2021-09-27] MEDS: ALBUTEROL SULFATE NEB 2.5 MG/0.5 ML INH 5 MG INHALATION ×3 (02:20→13:59)
[2021-09-27] MEDS: IPRATROPIUM BR 0.02% INH SOLN 0.5 MG/2.5 ML VIAL INHALATION ×3 (02:20→13:59)
[2021-09-27] MEDS: LEVOTHYROXINE SODIUM 112 MCG TABLET PO (05:31)
[2021-09-27] MEDS: BENZONATATE 100 MG CAPSULE 200 MG PO ×3 (05:32→21:22)
[2021-09-27] MEDS: ENOXAPARIN 40 MG/0.4 ML SYRINGE SUB-Q (09:31)
[2021-09-27] MEDS: guaiFENesin/DEXTROMETHORPHAN 10 ML UDC PO (12:48)
--- NOTE | 2021-09-27 14:00 | PM.IMPN ---
Progress Note: A&P Assessment and Plan (1) Pneumonia: Qualifiers: Laterality: bilateral Lung location: unspecified part of lung Pneumonia type: due to unspecified organism Qualified Code(s): J18.9 - Pneumonia, unspecified organism Code(s): J18.9 - Pneumonia, unspecified organism Status: Acute Assessment and Plan: Patient presents recent symptoms suggestive of COVID. Influenza swab and COVID PCR were negative. Chest x-ray suggests diffuse lung disease, , consistent with pneumonia, in the setting of severe emphysema. She was appropriately started on ceftriaxone and azithromycin. We have stopped the droplet isolation. Histoplasma, Streptococcus pneumoniae and Legionella urine antigens are pending. Chest CT confirms severe emphysema. Cough will be managed with Robitussin with codeine. (2) COPD (chronic obstructive pulmonary disease): Qualifiers: COPD type: unspecified COPD Qualified Code(s): J44.9 - Chronic obstructive pulmonary disease, unspecified Code(s): J44.9 - Chronic obstructive pulmonary disease, unspecified Status: Acute Assessment and Plan: Patient present with symptoms suggesting COPD exacerbation. She was appropriately started on dexamethasone and scheduled nebulizer treatments. (3) On home oxygen therapy: Code(s): Z99.81 - Dependence on supplemental oxygen Status: Acute Assessment and Plan: Patient is on chronic oxygen 3 L via nasal cannula. No increased oxygen requirement. (4) Continuous tobacco abuse: Code(s): Z72.0 - Tobacco use Status: Acute Assessment and Plan: Patient was counseled regarding smoking cessation. Additional Plan The patient has pneumonia upon reviewing patient's chest x-ray and so suspicious of COVID pneumonia specially given her recent COVID exposures. Patient also has complete loss of sense of taste and smell highly suggestive of COVID. The patient has been placed on Decadron and scheduled nebulizer treatments. She is mildly increased oxygen requirement from baseline at 4 L nasal cannula. Patient has been vaccinated against COVID. Her rapid COVID PCR in the ER was negative. Better clinical picture still consistent with COVID. The patient has been placed on empiric antibiotic therapy with Rocephin and azithromycin the cover for possible bacterial component. Unfortunately the patient has significant emphysema noted on imaging with blebs in the upper lobes. The patient reports that she has tried to quit smoking multiple times. I have offered nicotine gum. Approximately 8 minutes was spent in tobacco cessation education. Subjective Date/time seen: 09/27/21 14:00 S: Patient seen examined at the bedside. She is complaining of cough . Review of Systems Review of Systems: All systems reviewed & are unremarkable except as noted in HPI and below Constitutional: Constitutional: Reports as per HPI and Reports no additional constitutional complaints Eyes: Eyes: Reports as per HPI and Reports no additional eye complaints ENT: Reports system reviewed and no additional complaints, except as documented and Reports as per HPI Cardiovascular: Cardiovascular: Reports as per HPI, Reports no additional cardiovascular complaints, Reports dyspnea and Reports dyspnea on exertion Respiratory: Respiratory: Reports as per HPI, Reports cough, Reports dyspnea, Reports dyspnea on exertion and Reports wheezing Gastrointestinal: Gastrointestinal: Reports as per HPI, Reports diarrhea, Denies nausea and Denies vomiting Genitourinary: Genitourinary: Reports no additional female genitourinary complaints and Reports as per HPI Musculoskeletal: Musculoskeletal: Reports no additional musculoskeletal complaints, Reports as per HPI and Reports abnormal gait Integumentary/Breasts: Skin/Breast: Reports system reviewed and no additional complaints, except as docu and Reports as per HPI Neurologic: Reports system reviewed and no
[2021-09-27] MEDS: OMEGA 3 POLYUNSAT FATTY ACIDS 1 GM CAP 2 GM PO (18:07)
[2021-09-27] MEDS: EMPAGLIFLOZIN 25 MG TABLET PO (18:07)
[2021-09-27] MEDS: PANTOPRAZOLE 40 MG TABLET PO (18:07)
[2021-09-27] MEDS: FENOFIBRATE NANOCRYSTALLIZED 145 MG TABLET PO (18:07)
[2021-09-27] MEDS: BENZOCAINE/MENTHOL (*BKC) 18 EA LOZENGE 1 LOZENGE PO (20:20)
[2021-09-27] MEDS: LIDOCAINE 5% PATCH 1 PATCH TRANSDERM (20:21)
[2021-09-28] VITALS (11 sets, daily range): BP systolic 103–121; BP diastolic 56–67; PULSE 64–82; RESP 16–20; TEMP 35.8–36.8; O2SAT 90–97
[2021-09-28] MEDS: IPRATROPIUM BR 0.02% INH SOLN 0.5 MG/2.5 ML VIAL INHALATION ×3 (01:36→14:06)
[2021-09-28] MEDS: ALBUTEROL SULFATE NEB 2.5 MG/0.5 ML INH 5 MG INHALATION ×3 (01:36→14:05)
[2021-09-28] MEDS: LEVOTHYROXINE SODIUM 112 MCG TABLET PO (05:47)
[2021-09-28] MEDS: BENZONATATE 100 MG CAPSULE 200 MG PO ×3 (05:47→22:46)
[2021-09-28] MEDS: ENOXAPARIN 40 MG/0.4 ML SYRINGE SUB-Q (09:59)
[2021-09-28] MEDS: ACETAMINOPHEN 325 MG TABLET 650 MG PO (10:02)
[2021-09-28] MEDS: guaiFENesin/DEXTROMETHORPHAN 10 ML UDC PO (10:02)
--- NOTE | 2021-09-28 12:03 | PM.IMPN ---
Progress Note: A&P Assessment and Plan (1) Pneumonia: Qualifiers: Laterality: bilateral Lung location: unspecified part of lung Pneumonia type: due to unspecified organism Qualified Code(s): J18.9 - Pneumonia, unspecified organism Code(s): J18.9 - Pneumonia, unspecified organism Status: Acute Assessment and Plan: Patient presents recent symptoms suggestive of COVID. Influenza swab and COVID PCR were negative. Chest x-ray suggests diffuse lung disease, , consistent with pneumonia, in the setting of severe emphysema. She was appropriately started on ceftriaxone and azithromycin. We have stopped the droplet isolation. Histoplasma, Streptococcus pneumoniae and Legionella urine antigens are pending. Chest CT confirms severe emphysema. Cough will be managed with Robitussin with codeine and Tessalon Perles. (2) COPD (chronic obstructive pulmonary disease): Qualifiers: COPD type: unspecified COPD Qualified Code(s): J44.9 - Chronic obstructive pulmonary disease, unspecified Code(s): J44.9 - Chronic obstructive pulmonary disease, unspecified Status: Acute Assessment and Plan: Patient present with symptoms suggesting COPD exacerbation. She was appropriately started on dexamethasone and scheduled nebulizer treatments. (3) On home oxygen therapy: Code(s): Z99.81 - Dependence on supplemental oxygen Status: Acute Assessment and Plan: Patient is on chronic oxygen 3 L via nasal cannula. No increased oxygen requirement. (4) Continuous tobacco abuse: Code(s): Z72.0 - Tobacco use Status: Acute Assessment and Plan: Patient was counseled regarding smoking cessation. Additional Plan The patient has pneumonia upon reviewing patient's chest x-ray and so suspicious of COVID pneumonia specially given her recent COVID exposures. Patient also has complete loss of sense of taste and smell highly suggestive of COVID. The patient has been placed on Decadron and scheduled nebulizer treatments. She is mildly increased oxygen requirement from baseline at 4 L nasal cannula. Patient has been vaccinated against COVID. Her rapid COVID PCR in the ER was negative. Better clinical picture still consistent with COVID. The patient has been placed on empiric antibiotic therapy with Rocephin and azithromycin the cover for possible bacterial component. Unfortunately the patient has significant emphysema noted on imaging with blebs in the upper lobes. The patient reports that she has tried to quit smoking multiple times. I have offered nicotine gum. Approximately 8 minutes was spent in tobacco cessation education. Subjective Date/time seen: 09/28/21 12:00 S: Patient was seen examined at the bedside. She complains of persistent cough. Review of Systems Review of Systems: All systems reviewed & are unremarkable except as noted in HPI and below Constitutional: Constitutional: Reports as per HPI and Reports no additional constitutional complaints Eyes: Eyes: Reports as per HPI and Reports no additional eye complaints ENT: Reports system reviewed and no additional complaints, except as documented and Reports as per HPI Cardiovascular: Cardiovascular: Reports as per HPI, Reports no additional cardiovascular complaints, Reports dyspnea and Reports dyspnea on exertion Respiratory: Respiratory: Reports as per HPI, Reports cough, Reports dyspnea, Reports dyspnea on exertion and Reports wheezing Gastrointestinal: Gastrointestinal: Reports as per HPI, Reports diarrhea, Denies nausea and Denies vomiting Genitourinary: Genitourinary: Reports no additional female genitourinary complaints and Reports as per HPI Musculoskeletal: Musculoskeletal: Reports no additional musculoskeletal complaints, Reports as per HPI and Reports abnormal gait Integumentary/Breasts: Skin/Breast: Reports system reviewed and no additional complaints, except as docu and Reports as per HPI Neurologic:
[2021-09-28] MEDS: OMEGA 3 POLYUNSAT FATTY ACIDS 1 GM CAP 2 GM PO (17:44)
[2021-09-28] MEDS: FENOFIBRATE NANOCRYSTALLIZED 145 MG TABLET PO (17:44)
[2021-09-28] MEDS: PANTOPRAZOLE 40 MG TABLET PO (17:44)
[2021-09-28] MEDS: EMPAGLIFLOZIN 25 MG TABLET PO (17:44)
[2021-09-29] VITALS (7 sets, daily range): BP systolic 100–108; BP diastolic 56–64; PULSE 66–78; RESP 18–22; TEMP 35.9–36.7; O2SAT 93–95
[2021-09-29] MEDS: BENZONATATE 100 MG CAPSULE 200 MG PO ×2 (06:23→13:34)
[2021-09-29] MEDS: LEVOTHYROXINE SODIUM 112 MCG TABLET PO (06:23)
[2021-09-29] MEDS: ALBUTEROL SULFATE NEB 2.5 MG/0.5 ML INH 5 MG INHALATION ×2 (08:12→14:04)
[2021-09-29] MEDS: IPRATROPIUM BR 0.02% INH SOLN 0.5 MG/2.5 ML VIAL INHALATION ×2 (08:12→14:04)
[2021-09-29] MEDS: ENOXAPARIN 40 MG/0.4 ML SYRINGE SUB-Q (09:41)
--- NOTE | 2021-09-29 14:16 | PM.DS ---
DS: Admitting Diagnosis Discharge Date 09/29/2021 Admitting Diagnosis (1) Pneumonia: (2) COPD (chronic obstructive pulmonary disease): (3) On home oxygen therapy: (4) Continuous tobacco abuse: DS: Discharge Diagnosis Discharge Diagnosis (1) Pneumonia: Qualifiers: Laterality: bilateral Lung location: unspecified part of lung Pneumonia type: due to unspecified organism Qualified Code(s): J18.9 - Pneumonia, unspecified organism Code(s): J18.9 - Pneumonia, unspecified organism Status: Acute Assessment and Plan: Patient presents recent symptoms suggestive of COVID. Influenza swab and COVID PCR were negative. Chest x-ray suggests diffuse lung disease, , consistent with pneumonia, in the setting of severe emphysema. She was appropriately started on ceftriaxone and azithromycin. We have stopped the droplet isolation. Histoplasma, Streptococcus pneumoniae and Legionella urine antigens are pending at the time of discharge. Chest CT confirms severe emphysema. Cough will be managed with Robitussin with codeine and Tessalon Perles. Influenza swab and COVID PCR were negative. Chest x-ray suggests diffuse lung disease, , consistent with pneumonia, in the setting of severe emphysema. She was appropriately started on ceftriaxone and azithromycin. We have stopped the droplet isolation. Histoplasma, Streptococcus pneumoniae and Legionella urine antigens are pending. Chest CT confirms severe emphysema. Cough will be managed with Robitussin with codeine and Tessalon Perles. Patient will be discharged on a week course of Augmentin. She will follow-up with her primary interdisciplinary professor, Dr. Anabel Tinoco next week. (2) COPD (chronic obstructive pulmonary disease): Qualifiers: COPD type: unspecified COPD Qualified Code(s): J44.9 - Chronic obstructive pulmonary disease, unspecified Code(s): J44.9 - Chronic obstructive pulmonary disease, unspecified Status: Acute Assessment and Plan: Patient present with symptoms suggesting COPD exacerbation. She was appropriately started on dexamethasone and scheduled nebulizer treatments. (3) On home oxygen therapy: Code(s): Z99.81 - Dependence on supplemental oxygen Status: Acute Assessment and Plan: Patient is on chronic oxygen 3 L via nasal cannula. No increased oxygen requirement. (4) Continuous tobacco abuse: Code(s): Z72.0 - Tobacco use Status: Acute Assessment and Plan: Patient was counseled regarding smoking cessation. DS: Summary Hospital Course Reason for hospitalization: Shortness of breath. Hospital Course: lung disease, , consistent with pneumonia, in the setting of severe emphysema. She was appropriately started on ceftriaxone and azithromycin. We have stopped the droplet isolation. Histoplasma, Streptococcus pneumoniae and Legionella urine antigens are pending at the time of discharge. Chest CT confirms severe emphysema. Cough will be managed with Robitussin with codeine and Tessalon Perles. Influenza swab and COVID PCR were negative. Chest x-ray suggests diffuse lung disease, , consistent with pneumonia, in the setting of severe emphysema. She was appropriately started on ceftriaxone and azithromycin. We have stopped the droplet isolation. Histoplasma, Streptococcus pneumoniae and Legionella urine antigens are pending. Chest CT confirms severe emphysema. Cough will be managed with Robitussin with codeine and Tessalon Perles. Patient will be discharged on a week course of Augmentin. She will follow-up with her primary interdisciplinary professor, Dr. Anabel Tinoco next week. Time spent discussing smoking cessation with patient: more than 10 minutes Status at Discharge Functional status at discharge: independent ambulation Overall status at discharge: patient is back to baseline Time Spent with Patient Time attestation: Total time spent providing and/or coordinating discharge services:40 minutes. Time
--- NOTE | 2021-09-29 14:49 | PC.NURSE ---
Patient discharged, took off without any oxygen. Says she doesn't need it to get home she [place]. Encouraged patient to have her go get her tank and she refused.
[2021-10-01 02:34] LABS: Pneumococcal Antigen Urine Not Detected (Not Detected)
[2021-10-01 04:32] LABS: Legionella pneumophila Ag Ur Not Detected (Not Detected)
== END 2021-09-29 14:46 | disposition home or self-care (01) | DRG 195 ==
LOC: ANHED 21:42 → ANH3MEDSUR 09-25 02:55
PROVIDERS: Internal Medicine; Admitting Provider Internal Medicine; Emergency Provider Family Medicine; PCP Emergency Medicine; Visit Provider Internal Medicine
DX: J18.9 Pneumonia, unspecified organism (principal); J43.9 Emphysema, unspecified; Z20.822 Contact with and (suspected) exposure to COVID-19; K21.9 Gastro-esophageal reflux disease without esophagitis; E03.9 Hypothyroidism, unspecified; F17.210 Nicotine dependence, cigarettes, uncomplicated; Z99.81 Dependence on supplemental oxygen; Z86.73 Personal history of transient ischemic attack (TIA), and cerebral infarction without residual deficits; Z85.71 Personal history of Hodgkin lymphoma; Z90.49 Acquired absence of other specified parts of digestive tract
CPT/HCPCS: 36415; 71045; 71250; 80048; 80053; 85025; 87385; 87449; 87502; 87899; 93005; 94640; 96361; 96365; 96366; 96367; 96372; 96375; 96376; 99285; A9270; C9803; G0378; J0456; J0696; J1100; J1650; J7030; U0003; U0005

== ENCOUNTER 2022-09-18 14:14 | Emergency (ER) | payer MEDICARE, MEDICAID, SELFPAY ==
--- NOTE | ~2022-09-18 | XR_ITS ---
EXAMINATION: XR chest 2V DATE: 09/18/2022 14:53 INDICATION: Cough, emphysema TECHNIQUE: PA and lateral views of the chest are obtained. COMPARISON: 09/24/2021 FINDINGS: There is chronic scarring and atelectasis of the lung bases. The lungs are free of acute op acities. Hyperlucency of the upper lung zones is consistent with emphysema. No pleural effusion or pn eumothorax. The cardiomediastinal silhouette is normal. There is mild thoracic spondylosis. A chronic T9 compression fracture is again noted. IMPRESSION: 1. Emphysema without acute cardiopulmonary abnormality. Reviewed, dictated and finalized at location B. D REIMBURSEMENT MANAGER
[2022-09-18 14:24] VITALS: BP 135/80; PULSE 88; RESP 20; TEMP 36.1; O2SAT 97
--- NOTE | 2022-09-18 14:40 | ED.URI ---
HPI - URI/Sore Throat General Chief Complaint: Shortness of Breath/Dyspnea Stated Complaint: sob Source: patient Mode of arrival: ambulatory Limitations: no limitations History of Present Illness HPI Narrative: 57 y/o female with hx COPD, severe emphysema, Hodgkins lymphoma, Elvis's disease, presented for c/o persistent cough, sob with exertion, and right upper back pain for 2 weeks. Cough is nonproductive. Endorses fatigue. Denies chest pain, palpitations, n/v/d/f/c. Took Nyquil at onset of symptoms. Endorses hx pneumonia 09/2021. She wears home O2 at 3L at hs. Stopped following with her pcp over one year ago, not taking any medication for chronic conditions. Currently smokes 1PPD. [employer] [place]. Related Data Home Medications Medication Instructions Recorded Confirmed fluticasone fur. 100 mcg-umeclid 1 inh inhalation DIRECTED 09/18/22 09/18/22 62.5 mcg-vilant 25 mcg inhalat.powder (Trelegy Ellipta) Allergies Allergy/AdvReac Type Severity Reaction Status Date / Time latex Allergy Mild ITCHING Verified 09/24/21 19:36 Review of Systems Review of Systems: CONSTITUTIONAL: Denies body aches, fever, chills, or sweats. EYES: Denies visual changes, redness, or discharge. ENT: Denies rhinorrhea, congestion, sore throat, or otalgia. CARDIOVASCULAR: Denies chest pain, palpitations, or edema. RESPIRATORY: Reports cough, sob, wheezing. GASTROINTESTINAL: Denies abdominal pain, nausea, vomiting, or diarrhea. GENITOURINARY: Denies dysuria or hematuria. SKIN: Denies rash, itching, or wounds. MUSCULOSKELETAL: Denies back pain, joint pain, or myalgia. NEUROLOGIC: Denies headache, numbness, tingling, or weakness. 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 Surgical History Surgical History H/O hand surgery ORIF left ring finger H/O lymph node biopsy Left anterior cervical chain, resection of the left submandibular gland due to increased uptake on PET scan and pathology was negative H/O submandibular gland removal H/O: hysterectomy With unilateral oophorectomy due to cervical dysplasia History of appendectomy History of bone marrow biopsy History of cardiac cath History of Lora fundoplication History of removal of Port-a-Cath Right chest Family History Family History Father Diabetes mellitus Hypertension Age older than 80 years Grandparent Lymphoma Other Ovarian cancer Mother Scoliosis Osteoporosis Age greater than 75 years Other Family history of cardiovascular disease Family history of malignant neoplasm Social History Social History Social History: She lives in a home with her ex [id number]. She is . She has 1 daughter and 3 grandchildren. She continues to smoke 1-2 packs of cigarettes per day and has done so since she was 12. She denies any history of heavy alcohol use in does not use any alcohol currently. She denies any a illicit substance use. Primary care physician: Dr. Biju Joe Code status: Full code however she would not want to remain on a ventilator for long-term. Surrogate decision maker: Daughter Smoking packs per day: 2 Smoking cigarettes per day: 40.0 Years smoked: 42 Smoking pack-years: 84.00 Smoking status: Current every day smoker Tobacco type: cigarettes Second hand tobacco smoke exposure: Yes Ad
== END 2022-09-18 15:20 | disposition home or self-care (01) ==
PROVIDERS: Emergency Provider Nurse Practitioner Family
DX: R05.9 Cough, unspecified (principal); F17.210 Nicotine dependence, cigarettes, uncomplicated; J44.9 Chronic obstructive pulmonary disease, unspecified; K21.9 Gastro-esophageal reflux disease without esophagitis; K76.0 Fatty (change of) liver, not elsewhere classified; Z86.73 Personal history of transient ischemic attack (TIA), and cerebral infarction without residual deficits; E03.9 Hypothyroidism, unspecified; E06.3 Autoimmune thyroiditis; Z99.81 Dependence on supplemental oxygen; Z85.71 Personal history of Hodgkin lymphoma
CPT/HCPCS: 71046; 99213; G0463

== ENCOUNTER 2022-12-11 09:04 | Inpatient (IN) | payer MEDICARE, MEDICAID, SELFPAY ==
[2022-12-11] VITALS (20 sets, daily range): BP systolic 111–144; BP diastolic 70–92; PULSE 74–98; RESP 18–35; TEMP 36.6–36.7; O2SAT 89–99
--- NOTE | ~2022-12-11 | US_ITS ---
EXAMINATION: US venous doppler [facility] DATE: 12/11/2022 23:25 INDICATION: Lower limb pain TECHNIQUE: Grayscale ultrasound images without and with compression and Doppler ultrasound images of the bilateral lower extremity veins were obtained. COMPARISON: None. FINDINGS: The visualized portions of right common femoral vein, profunda (deep) femoral vein, femoral vein, pop liteal vein, posterior tibial veins, peroneal veins, gastrocnemius vein and greater saphenous vein ou tflow are patent. The visualized portions of left common femoral vein, profunda femoral vein, femoral vein, popliteal v ein, posterior tibial veins, peroneal veins, gastrocnemius vein and greater saphenous vein outflow ar e patent. IMPRESSION: 1. No deep venous thrombosis in either lower limb. Reviewed, dictated and finalized at location A.
--- NOTE | ~2022-12-11 | CT_ITS ---
EXAMINATION: CT facial bones wo con DATE: 12/14/2022 18:21 INDICATION: swelling around her left periorbital area . TECHNIQUE: Computed tomography (CT) of the facial bones and maxillofacial region was performed withou t intravenous contrast. Automated exposure control and iterative reconstruction technique were employ ed. The dose-length product was 527.98 mGy-cm. COMPARISON: None. FINDINGS: Soft Tissues: Preseptal swelling on the left. Facial bones: No acute fracture. No lytic or blastic process. Eyes: The globes are intact. The soft tissue planes of the orbits are maintained. Paranasal Sinuses: Ethmoid, sphenoid and bilateral inferior maxillary mucosal thickening, bilateral mastoid fluid, the remaining aerated spaces are clear. Foreign Bodies: No radiopaque foreign bodies. Other Findings: None. IMPRESSION: Preseptal soft tissue swelling on the left, may represent periorbital cellulitis in the appropriate c linical context. Reviewed, dictated and finalized at location K. IMPRESSION: Preseptal soft tissue swelling on the left, may represent periorbital celluliti s in the appropriate clinical context.
--- NOTE | ~2022-12-11 | XR_ITS ---
EXAMINATION: XR chest 1V portable DATE: 12/11/2022 09:51 INDICATION: Cough. TECHNIQUE: A single frontal view of the chest was obtained. COMPARISON: Chest 2 views 09/18/2022, chest CT 09/26/2021 FINDINGS: There are lucencies in the lungs, worst in right upper lobe, consistent with emphysema. The re is mild atelectasis versus scarring in the lower lung zones. No pleural effusion or pneumothorax. The heart size is normal. IMPRESSION: 1. Severe emphysema. 2. Mild atelectasis versus scarring in the lower lung zones. Reviewed, dictated and finalized at location A.
--- NOTE | 2022-12-11 09:10 | ECG_ITS ---
Measurements Intervals [place] Rate: 90 P: -6 DE: 140 QRS: -46 QRSD: 90 T: 11 QT: 353 QTc: 434 Interpretive Statements SINUS RHYTHM MARKED LEFT AXIS DEVIATION [QRS AXIS < -30] POSSIBLE RIGHT VENTRICULAR CONDUCTION DELAY [RSR (QR) IN V1/V2] NONSPECIFIC T-WAVE ABNORMALITY ABNORMAL ECG COMPARED TO ECG 09/24/2021 20:02:24 NO SIGNIFICANT CHANGES Electronically Signed On 12-11-2022 13:49:46 CDT by Kodi Taylor M.D.
--- NOTE | 2022-12-11 09:17 | ECG_ITS ---
Measurements Intervals [place] Rate: 90 P: -4 FL: 145 QRS: -46 QRSD: 97 T: 13 QT: 344 QTc: 423 Interpretive Statements SINUS RHYTHM LEFT AXIS DEVIATION COMPARED TO ECG 09/24/2021 20:02:24 NO SIGNIFICANT CHANGES Electronically Signed On 12-12-2022 10:33:55 CDT by Josh Miller M.D.
--- NOTE | 2022-12-11 09:21 | ED.SOB ---
HPI - SOB/Dyspnea General Chief Complaint: Shortness of Breath/Dyspnea Stated Complaint: difficulty breathing Time Seen by Provider: 12/11/22 09:13 History of Present Illness HPI Narrative: 57 y/o female with hx of copd presents with progressively worsening SOB over the last 3 days. Pt is on 4L o2 at night and prn during the day. Pt has been requiring oxygen more during the day than usual and says she was in the 70's on RA this morning. Pt denies fever but has cough productive of white sputum. Pt tries not to do prednisone ecause she is diabetic and it raises her BS. Related Data Home Medications Medication Instructions Recorded Confirmed fluticasone fur. 100 mcg-umeclid 1 inh inhalation DIRECTED 09/18/22 09/18/22 62.5 mcg-vilant 25 mcg inhalat.powder (Trelegy Ellipta) Allergies Allergy/AdvReac Type Severity Reaction Status Date / Time latex Allergy Mild ITCHING Verified 12/11/22 09:14 Review of Systems Review of Systems: All systems reviewed & are unremarkable except as noted in HPI and below PMFSH Past Medical History Medical History Asthma Chronic respiratory failure with hypoxia, on home O2 therapy Emphysema/COPD GERD (gastroesophageal reflux disease) Hepatic steatosis Hiatal hernia Recurrent hiatal hernia despite Lora High cholesterol History of gastric ulcer History of stroke TIA 2009 Hodgkin lymphoma (~2014) 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 Surgical History Surgical History H/O hand surgery ORIF left ring finger H/O lymph node biopsy Left anterior cervical chain, resection of the left submandibular gland due to increased uptake on PET scan and pathology was negative H/O submandibular gland removal H/O: hysterectomy With unilateral oophorectomy due to cervical dysplasia History of appendectomy History of bone marrow biopsy History of cardiac cath History of Lora fundoplication History of removal of Port-a-Cath Right chest Family History Family History Father Diabetes mellitus Hypertension Age older than 80 years Grandparent Lymphoma Other Ovarian cancer Mother Scoliosis Osteoporosis Age greater than 75 years Other Family history of cardiovascular disease Family history of malignant neoplasm Social History Social History Social History: She lives in a home with her ex [id number]. She is . She has 1 daughter and 3 grandchildren. She continues to smoke 1-2 packs of cigarettes per day and has done so since she was 12. She denies any history of heavy alcohol use in does not use any alcohol currently. She denies any a illicit substance use. Primary care physician: Dr. Biju Joe Code status: Full code however she would not want to remain on a ventilator for long-term. Surrogate decision maker: Daughter Smoking packs per day: 2 Smoking cigarettes per day: 40.0 Years smoked: 42 Smoking pack-years: 84.00 Smoking status: Current every day smoker Tobacco type: cigarettes Second hand tobacco smoke exposure: Yes Additional smoking assessment comments: 1-2 PPD Alcohol intake: never Substance use: never Substance use type: does not use Living arrangements: with family Occupation/Education: unemployed Spiritual care concerns: No Exam Const: General: healthy appearing Nutritional Appearance: well nourished and thin Orientation/consciousness: patient oriented x3 Limitations: no limitations Eyes: Conjunctivae: conjunctivae normal Neck: Neck: normal visual inspection and no lymphadenopathy Resp: Effort & Inspection: labored Auscultation: wheezes and diminished lung sounds Cardio: Rate: regular rate Rhythm: regular rhythm GI: GI Palp: Yes Soft to palpation Auscultation: normal b
[2022-12-11] MEDS: IPRATROPIUM BR 0.02% INH SOLN 0.5 MG/2.5 ML VIAL INHALATION ×3 (09:35→19:43)
[2022-12-11] MEDS: ALBUTEROL SULFATE NEB 2.5 MG/3 ML INH INHALATION ×4 (09:35→19:43)
[2022-12-11 09:42] LABS: Basophils Percent Auto 0.5 % (0.2-1.2); Eosinophils Absolute Auto 0.2 K/mm3 (0-0.3); Eosinophils Percent Auto 3.2 % (0-4.4); Hematocrit 45.4 % (37.0-47.0); Hemoglobin 14.4 g/dL (12.0-15.0); Immature Granulocyte Absolute 0.04 K/mm3 (0.00-0.031); Immature Granulocyte Percent A 0.7 % (0-0.5); Lymphocytes Absolute Auto 0.93 K/mm3 (0.9-3.2); Lymphocytes Percent Auto 16.4 % (18.3-44.2); Mean Corpuscular HGB Conc 31.7 g/dl (32-36); Mean Corpuscular Volume 91.3 fl (80-100); Mean Platelet Volume 9.6 fl (7.4-10.4); Monocytes Absolute Auto 0.6 K/mm3 (0.1-0.6); Monocytes Percent Auto 9.9 % (2.6-8.5); Neutrophils Absolute Auto 3.9 K/mm3 (1.3-6.7); Neutrophils Percent Auto 69.3 % (45.5-73.1); Platelet Count Result 239 k/mm3 (150-375); Red Blood Count 4.97 M/mm3 (4.2-5.4); Red Cell Distribution Width 14.6 % (11.5-14.5); White Blood Count 5.7 K/mm3 (4.5-10.0)
[2022-12-11 09:46] LABS: Prothrombin Time 12.9 Seconds (11.1-14.7)
[2022-12-11 09:47] LABS: Partial Thromboplastin Time 30.4 SECONDS (22.3-36.8)
[2022-12-11 09:49] LABS: Magnesium 1.7 mg/dL (1.6-2.3)
[2022-12-11 09:58] LABS: Alanine Aminotransferase 107 U/L (6-35); Albumin Level 4.4 g/dL (3.5-5.1); Alkaline Phosphatase 128 U/L (38-126); Anion Gap 10 mmol/L (8-16); Aspartate Amino Transferase 105 U/L (14-36); Bilirubin,Total 0.5 mg/dL (0.2-1.3); Blood Urea Nitrogen 8 mg/dL (7-17); Carbon Dioxide 25 mmol/L (22-30); Chloride 100 mmol/L (98-107); Estimated CRCL calculation 141 ml/min; Estimated Glomerular Filt Rate > 60; Glucose 212 mg/dL (65-110); Potassium 3.8 mmol/L (3.4-5.0); Sodium 135 mmol/L (137-145)
[2022-12-11 10:10] LABS: NT Pro B Type Natriuretic Pept 32 pg/mL (19.9-100); Troponin I < 0.012 ng/mL (0.000-0.034)
--- NOTE | 2022-12-11 11:00 | PC.NURSE ---
Report received from Artis HAYS at this time
[2022-12-11] MEDS: methylPREDNISolone SOD SUCC 125 MG VIAL IV PUSH (11:16)
--- NOTE | 2022-12-11 13:15 | PM.IMHP ---
H&P: HPI History of Present Illness Date/Time: 12/11/22 13:15 Chief Complaint: Shortness of breath. Narrative: This is a 57-year-old female smoker with chronic obstructive pulmonary disease, chronic respiratory failure on oxygen, type 2 diabetes mellitus, hypothyroidism, hyperlipidemia, GERD with history of peptic ulcers, and Hodgkin lymphoma in 2016 who presented to the emergency department for evaluation of shortness of breath. Patient provides the following history. She is on 4 L nasal cannula at nighttime and does use it throughout the day if needed. She has been wearing her oxygen continuously over the last several days as her SpO2 has been dropping into the high 70s and 80s on room air. At baseline her exercise tolerance is poor and she gets winded when going to the store (always uses a cart) and she has to stop a couple of times when going up a flight of steps. She has a mild smoker's cough, typically only coughs in the morning, but over the last several days she has had an increase in cough which has been productive of clear phlegm. She has also had increasing dyspnea on lesser and lesser exertion and she has been using her nebulizers every 4 hours though that has not been helping much. She slept poorly last night due to shortness of breath but also mentions that her GERD was quite bad as well. She denies overt chest pain and pleuritic pain but she does mention that her ribs are sore due to the coughing. She endorses subjective fever and sweats last night but she has not had a documented fever. She has chronic rhinorrhea which is unchanged. No sinus congestion or sore throat. She denies orthopnea and lower extremity edema. No nausea, vomiting, or diarrhea. She has not noticed any lower extremity edema though she does on occasion have intermittent pedal edema. She complains of pain in her calves at the side of varicose veins but this is not new. Review of Systems Review of Systems: Twelve systems were reviewed. No headache or neck ache. She denies sick contacts. Appetite is okay. No nausea, vomiting, or diarrhea. Glucose is typically well controlled, usually between 90 and 120. She received steroids this evening her glucose got up to over 300. No blurry vision, polyuria, or polydipsia. Except as documented, all other systems were reviewed and are negative. [facility] Past Medical History Medical History Asthma Chronic respiratory failure with hypoxia, on home O2 therapy COPD with emphysema Dyslipidemia Gastroesophageal reflux disease Hepatic steatosis Hiatal hernia Recurrent hiatal hernia despite Lora. History of gastric ulcer Hodgkin lymphoma (2014) 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 Tobacco abuse Transient ischemic attack (2009) Type 2 diabetes mellitus Surgical History Surgical History History of appendectomy History of bone marrow biopsy History of cardiac cath History of cardiac catheterization History of hysterectomy with unilateral oophorectomy For cervical dysplasia. History of lymph node biopsy Left anterior cervical chain, resection of the left submandibular gland due to increased uptake on PET scan and pathology was negative. History of Lora fundoplication History of open reduction and internal fixation (ORIF) procedure Repair left 4th finger fracture. History of removal of Port-a-Cath Right chest History of right inguinal hernia repair History of submandibular gland removal Family History Family History Father Diabetes mellitus Hypertension Age older than 80 years Grandparent Lymphoma Other Ovarian cancer Mother Scoliosis Osteoporosis Age greater than 75 years Other Family history of cardiovascular disease Family history of malignant neoplasm Social History Social History (Reviewed 12/13/22 @ 14:05 by Gely Esquivel
--- NOTE | 2022-12-11 14:16 | ADMGEN ---
This patient, Nayeli Og, was admitted to 3 [facility] Surg Room 320-01. Patient/family oriented to hospital policies and general routines including ID bracelet, bed and alarms, visiting hours, pain management, procedures, bathroom and other care routines, personal items, smoking policy, room service/diet, and visiting hours. Information on how to activate the Rapid Response Team has been discussed. Patient/Family are encouraged to report perceived risks to care and to ask questions if they do not understand what they are told or what they should do.
[2022-12-11 16:54] LABS: Glucose Point of Care 285 mg/dl (65-105)
[2022-12-11] MEDS: ACETAMINOPHEN 325 MG TABLET 650 MG PO ×2 (18:00→23:20)
[2022-12-11 18:46] LABS: Glucose Point of Care 341 mg/dl (65-105)
[2022-12-11] MEDS: INSULIN ASPART (*BKC) 100 UNITS/ML 8 UNITS SUB-Q (19:12)
[2022-12-11 21:55] LABS: Glucose Point of Care 288 mg/dl (65-105)
[2022-12-11] MEDS: AZITHROMYCIN 250 MG TABLET 500 MG PO (23:21)
[2022-12-11] MEDS: CALCIUM CARBONATE (TUMS) 500 MG (200 MG ELEMENTAL) PO (23:50)
[2022-12-12] VITALS (12 sets, daily range): BP systolic 116–123; BP diastolic 73–78; PULSE 56–81; RESP 16–30; TEMP 36–36.4; O2SAT 91–97
[2022-12-12 05:43] LABS: Hematocrit 47.8 % (37.0-47.0); Hemoglobin 15.4 g/dL (12.0-15.0); Mean Corpuscular HGB Conc 32.2 g/dl (32-36); Mean Corpuscular Hemoglobin 28.9 pg (26-34); Mean Corpuscular Volume 89.7 fl (80-100); Mean Platelet Volume 9.1 fl (7.4-10.4); Platelet Count Result 251 k/mm3 (150-375); Red Blood Count 5.33 M/mm3 (4.2-5.4); Red Cell Distribution Width 14.2 % (11.5-14.5); White Blood Count 5.4 K/mm3 (4.5-10.0)
[2022-12-12 05:55] LABS: Hemoglobin A1C 8.6 % (<5.7)
[2022-12-12 06:05] LABS: Alanine Aminotransferase 115 U/L (6-35); Albumin Level 4.8 g/dL (3.5-5.1); Alkaline Phosphatase 140 U/L (38-126); Anion Gap 8 mmol/L (8-16); Aspartate Amino Transferase 78 U/L (14-36); Bilirubin,Total 0.6 mg/dL (0.2-1.3); Blood Urea Nitrogen 15 mg/dL (7-17); Calcium 10.1 mg/dL (8.4-10.2); Carbon Dioxide 30 mmol/L (22-30); Chloride 101 mmol/L (98-107); Estimated CRCL calculation 141 ml/min; Estimated Glomerular Filt Rate > 60; Glucose 232 mg/dL (65-110); Magnesium 2.2 mg/dL (1.6-2.3); Potassium 4.9 mmol/L (3.4-5.0); Sodium 139 mmol/L (137-145)
[2022-12-12 07:33] LABS: Glucose Point of Care 231 mg/dl (65-105)
[2022-12-12] MEDS: ALBUTEROL SULFATE NEB 2.5 MG/3 ML INH INHALATION ×3 (08:20→20:32)
[2022-12-12] MEDS: FLUTICASONE/UMECLIDIN/VILANTER 100-62.5-25 MCG ELLIPTA 1 PUFF INHALATION (08:20)
[2022-12-12] MEDS: IPRATROPIUM BR 0.02% INH SOLN 0.5 MG/2.5 ML VIAL INHALATION ×3 (08:20→20:32)
[2022-12-12] MEDS: INSULIN ASPART (*BKC) 100 UNITS/ML SUB-Q ×3 (08:41→17:03)
[2022-12-12] MEDS: predniSONE 20 MG TABLET 40 MG PO (08:43)
[2022-12-12] MEDS: PANTOPRAZOLE SODIUM IV 40 MG VIAL IV PUSH (08:44)
[2022-12-12] MEDS: ENOXAPARIN 40 MG/0.4 ML SYRINGE SUB-Q (08:44)
[2022-12-12] MEDS: AZITHROMYCIN 250 MG TABLET PO (08:45)
[2022-12-12 11:47] LABS: Glucose Point of Care 243 mg/dl (65-105)
[2022-12-12] MEDS: ACETAMINOPHEN 325 MG TABLET 650 MG PO (13:23)
--- NOTE | 2022-12-12 17:03 | PM.IMPN ---
Progress Note: A&P Assessment and Plan (1) Acute exacerbation of chronic obstructive airways disease: Code(s): J44.1 - Chronic obstructive pulmonary disease with (acute) exacerbation Status: Acute Assessment and Plan: She has been started on scheduled bronchodilators. Her glucose spiked well above 300 following Solu-Medrol thus started oral steroid 40 mg daily significant wheezing continue same. She has been started on antibiotics given productive cough and worsening shortness of breath. No evidence of pneumonia on imaging. Chest x-ray with severe emphysema Continued current smoking (2) Chronic respiratory failure with hypoxia, on home O2 therapy: Code(s): J96.11 - Chronic respiratory failure with hypoxia; Z99.81 - Dependence on supplemental oxygen Status: Acute Assessment and Plan: Patient uses 4 L nasal cannula at nighttime. She has been wearing her oxygen for the last couple of days due to SpO2 in the high 70s to low 80s with minimal activity at home. Likely related to above. PE seems less likely. Given some discomfort with palpation of the calves, lower extremity venous ultrasounds have been ordered which came back negative. Consider CTA of the chest depending on her course. Wean oxygen as tolerated. (3) Type 2 diabetes mellitus: Code(s): E11.9 - Type 2 diabetes mellitus without complications Status: Acute Assessment and Plan: Initiate sliding scale insulin, Accu-Cheks, and hypoglycemic protocol. A1c 8.6 (4) Tobacco abuse: Code(s): Z72.0 - Tobacco use Status: Acute Assessment and Plan: Smoking cessation is imperative in was discussed. She declines the need for nicotine patch, gum, etc.. (5) Hypothyroidism: Code(s): E03.9 - Hypothyroidism, unspecified Status: Acute Assessment and Plan: Continue levothyroxine and TSH normal (6) Hepatic steatosis: Code(s): K76.0 - Fatty (change of) liver, not elsewhere classified Status: Acute Assessment and Plan: Transaminitis on labs, stable over the last several years. Known to the patient, she has been evaluated for this in the past. No further workup needed as an inpatient. Subjective Date/time seen: 12/12/22 17:03 Interval history: Still feels short of breath feel better though compared to yesterday. Still wheezy. Getting breathing treatment. Steroid cause hyperglycemia. Review of Systems Review of Systems: All systems reviewed & are unremarkable except as noted in HPI and below Exam Narrative: General: Chronically ill-appearing female in the semi-Ashley position in bed in no acute distress. HEENT: PERRL, EOMI. Sclera anicteric. Xanthelasma bilateral upper eyelids. Oral mucosa moist. Edentulous. Neck: Supple. No lymphadenopathy or JVD. Respiratory: Respirations are nonlabored and she is speaking in full sentences. Lung sounds are diminished throughout with mild rhonchi no significant wheezing heard today Cardiovascular: Regular rate and rhythm with S1-S2. Gastrointestinal: Abdomen is soft, nontender, and nondistended with positive bowel sounds. Skin: Warm and dry. No rash or lesions on limited exam. Extremities: No cyanosis, clubbing, or edema. Radial and pedal pulses intact. She is tender to palpation of the calves. No knots or cords. Equivocal Homans sign bilaterally. Neurological: Alert. Cranial nerves 2-12 are grossly intact. No gross focal deficits to casual conversation. Psychiatric: Pleasant and cooperative with normal mood and affect. Judgment and insight intact. Objective Data Vital Signs Vital Signs: Vital Signs - 24 hr 12/11/22 19:45 12/11/22 19:46 12/11/22 17:25 Temperature Pulse Rate 74 80 Respiratory Rate 20 20 Blood Pressure Pulse Oximetry 97 Oxygen Delivery Nasal Cannula Oxygen Flow Rate 2 12/11/22 20:00 12/11/22 22:00 12/12/22 06:00 Temperature 97.8 F 96.8 F L Pulse Rate 79 74 Respirato
[2022-12-12 18:03] LABS: Glucose Point of Care 354 mg/dl (65-105)
[2022-12-12 20:38] LABS: Glucose Point of Care 263 mg/dl (65-105)
[2022-12-13] VITALS (15 sets, daily range): BP systolic 112–119; BP diastolic 71–81; PULSE 57–83; RESP 16–20; TEMP 35.7–36.5; O2SAT 93–100
[2022-12-13] MEDS: ARTIFICIAL TEARS OPHTH SOLN 15 ML BOTTLE 1 DROP EACH EYE (05:48)
[2022-12-13 07:48] LABS: Glucose Point of Care 148 mg/dl (65-105)
[2022-12-13] MEDS: IPRATROPIUM BR 0.02% INH SOLN 0.5 MG/2.5 ML VIAL INHALATION ×3 (08:11→20:20)
[2022-12-13] MEDS: FLUTICASONE/UMECLIDIN/VILANTER 100-62.5-25 MCG ELLIPTA 1 PUFF INHALATION (08:11)
[2022-12-13] MEDS: ALBUTEROL SULFATE NEB 2.5 MG/3 ML INH INHALATION ×3 (08:11→20:20)
[2022-12-13] MEDS: ENOXAPARIN 40 MG/0.4 ML SYRINGE SUB-Q (09:01)
[2022-12-13] MEDS: AZITHROMYCIN 250 MG TABLET PO (09:01)
[2022-12-13] MEDS: predniSONE 20 MG TABLET 40 MG PO (09:01)
[2022-12-13 11:40] LABS: Glucose Point of Care 293 mg/dl (65-105)
[2022-12-13] MEDS: INSULIN ASPART (*BKC) 100 UNITS/ML SUB-Q ×2 (12:22→17:46)
--- NOTE | 2022-12-13 15:13 | PM.IMPN ---
Progress Note: A&P Assessment and Plan (1) Acute exacerbation of chronic obstructive airways disease: Code(s): J44.1 - Chronic obstructive pulmonary disease with (acute) exacerbation Status: Acute Assessment and Plan: She has been started on scheduled bronchodilators. Her glucose spiked well above 300 following Solu-Medrol thus will do a short burst of low-dose prednisone instead. She has been started on antibiotics given productive cough and worsening shortness of breath. No evidence of pneumonia on imaging.Taper prednisone today (2) Chronic respiratory failure with hypoxia, on home O2 therapy: Code(s): J96.11 - Chronic respiratory failure with hypoxia; Z99.81 - Dependence on supplemental oxygen Status: Acute Assessment and Plan: Patient uses 4 L nasal cannula at nighttime. She has been wearing her oxygen for the last couple of days due to SpO2 in the high 70s to low 80s with minimal activity at home. Likely related to above. PE seems less likely. Given some discomfort with palpation of the calves, lower extremity venous ultrasounds have been ordered. Consider CTA of the chest depending on her course. Wean oxygen as tolerated. (3) Type 2 diabetes mellitus: Code(s): E11.9 - Type 2 diabetes mellitus without complications Status: Acute Assessment and Plan: Initiate sliding scale insulin, Accu-Cheks, and hypoglycemic protocol. Check hemoglobin A1c. (4) Tobacco abuse: Code(s): Z72.0 - Tobacco use Status: Acute Assessment and Plan: Smoking cessation is imperative in was discussed. She declines the need for nicotine patch, gum, etc.. (5) Hypothyroidism: Code(s): E03.9 - Hypothyroidism, unspecified Status: Acute Assessment and Plan: Continue levothyroxine and check TSH. (6) Hepatic steatosis: Code(s): K76.0 - Fatty (change of) liver, not elsewhere classified Status: Acute Assessment and Plan: Transaminitis on labs, stable over the last several years. Known to the patient, she has been evaluated for this in the past. No further workup needed as an inpatient. Plan left eye swelling: Likely some irritation from oxygen possibly. Will continue to monitor Subjective Date/time seen: 12/13/22 15:13 Interval history: patient feeling better. Still short of breath with exertion. Denies any chest pain. Review of Systems Review of Systems: All systems reviewed & are unremarkable except as noted in HPI and below Exam Narrative: General: Chronically ill-appearing female in the semi-Ashley position in bed in no acute distress. HEENT: PERRL, EOMI. Sclera anicteric. Xanthelasma bilateral upper eyelids. Oral mucosa moist. Edentulous. Neck: Supple. No lymphadenopathy or JVD. Respiratory: Respirations are nonlabored and she is speaking in full sentences. Lung sounds are diminished throughout with mild rhonchi no significant wheezing heard today Cardiovascular: Regular rate and rhythm with S1-S2. Gastrointestinal: Abdomen is soft, nontender, and nondistended with positive bowel sounds. Skin: Warm and dry. No rash or lesions on limited exam. Extremities: No cyanosis, clubbing, or edema. Radial and pedal pulses intact. She is tender to palpation of the calves. No knots or cords. Equivocal Homans sign bilaterally. Neurological: Alert. Cranial nerves 2-12 are grossly intact. No gross focal deficits to casual conversation. Psychiatric: Pleasant and cooperative with normal mood and affect. Judgment and insight intact. Objective Data Vital Signs Vital Signs: Vital Signs - 24 hr 12/12/22 20:32 12/12/22 20:33 12/12/22 20:46 Temperature Pulse Rate 77 81 Respiratory Rate 20 20 Blood Pressure Pulse Oximetry 92 Oxygen Delivery Nasal Cannula Oxygen Flow Rate 3 12/12/22 20:47 12/12/22 20:20 12/12/22 22:00 Temperature 97.2 F L Pulse Rate 56 L Respiratory Rate 16 Blood Pressure
[2022-12-13 16:47] LABS: Glucose Point of Care 382 mg/dl (65-105)
[2022-12-13] MEDS: ACETAMINOPHEN 500 MG TABLET 1000 MG PO (17:46)
[2022-12-13 21:46] LABS: Glucose Point of Care 267 mg/dl (65-105)
[2022-12-14] VITALS (14 sets, daily range): BP systolic 112–125; BP diastolic 72–81; PULSE 56–72; RESP 16–24; TEMP 35.9–36.5; O2SAT 94–99
[2022-12-14] MEDS: IPRATROPIUM BR 0.02% INH SOLN 0.5 MG/2.5 ML VIAL INHALATION ×4 (02:00→20:11)
[2022-12-14] MEDS: ALBUTEROL SULFATE NEB 2.5 MG/3 ML INH INHALATION ×4 (02:00→20:11)
[2022-12-14 06:04] LABS: Basophils Percent Auto 0.4 % (0.2-1.2); Eosinophils Percent Auto 0.2 % (0-4.4); Hematocrit 46.5 % (37.0-47.0); Hemoglobin 14.5 g/dL (12.0-15.0); Immature Granulocyte Absolute 0.03 K/mm3 (0.00-0.031); Immature Granulocyte Percent A 0.5 % (0-0.5); Lymphocytes Absolute Auto 1.97 K/mm3 (0.9-3.2); Lymphocytes Percent Auto 35.8 % (18.3-44.2); Mean Corpuscular HGB Conc 31.2 g/dl (32-36); Mean Corpuscular Hemoglobin 28.6 pg (26-34); Mean Corpuscular Volume 91.7 fl (80-100); Mean Platelet Volume 9.1 fl (7.4-10.4); Monocytes Absolute Auto 0.6 K/mm3 (0.1-0.6); Monocytes Percent Auto 11.5 % (2.6-8.5); Neutrophils Absolute Auto 2.8 K/mm3 (1.3-6.7); Neutrophils Percent Auto 51.6 % (45.5-73.1); Platelet Count Result 251 k/mm3 (150-375); Red Blood Count 5.07 M/mm3 (4.2-5.4); Red Cell Distribution Width 14.1 % (11.5-14.5); White Blood Count 5.5 K/mm3 (4.5-10.0)
[2022-12-14 06:21] LABS: Alanine Aminotransferase 73 U/L (6-35); Albumin Level 4.3 g/dL (3.5-5.1); Alkaline Phosphatase 113 U/L (38-126); Anion Gap 6 mmol/L (8-16); Aspartate Amino Transferase 43 U/L (14-36); Bilirubin,Total 0.6 mg/dL (0.2-1.3); Blood Urea Nitrogen 14 mg/dL (7-17); Carbon Dioxide 32 mmol/L (22-30); Chloride 99 mmol/L (98-107); Estimated CRCL calculation 116 ml/min; Estimated Glomerular Filt Rate > 60; Glucose 168 mg/dL (65-110); Magnesium 2.2 mg/dL (1.6-2.3); Potassium 3.9 mmol/L (3.4-5.0); Sodium 137 mmol/L (137-145)
[2022-12-14 08:00] LABS: Glucose Point of Care 141 mg/dl (65-105)
[2022-12-14] MEDS: ACETAMINOPHEN 500 MG TABLET 1000 MG PO ×2 (08:14→14:33)
[2022-12-14] MEDS: AZITHROMYCIN 250 MG TABLET PO (08:14)
[2022-12-14] MEDS: predniSONE 10 MG TABLET 30 MG PO (08:14)
[2022-12-14] MEDS: ENOXAPARIN 40 MG/0.4 ML SYRINGE SUB-Q (08:15)
[2022-12-14] MEDS: FLUTICASONE/UMECLIDIN/VILANTER 100-62.5-25 MCG ELLIPTA 1 PUFF INHALATION (08:43)
[2022-12-14 11:50] LABS: Glucose Point of Care 255 mg/dl (65-105)
--- NOTE | 2022-12-14 12:37 | PM.IMPN ---
Progress Note: A&P Assessment and Plan (1) Acute exacerbation of chronic obstructive airways disease: Code(s): J44.1 - Chronic obstructive pulmonary disease with (acute) exacerbation Status: Acute Assessment and Plan: She has been started on scheduled bronchodilators. Her glucose spiked well above 300 following Solu-Medrol thus will do a short burst of low-dose prednisone instead. She has been started on antibiotics given productive cough and worsening shortness of breath. No evidence of pneumonia on imaging.Taper prednisone to 30 mg daily (2) Chronic respiratory failure with hypoxia, on home O2 therapy: Code(s): J96.11 - Chronic respiratory failure with hypoxia; Z99.81 - Dependence on supplemental oxygen Status: Acute Assessment and Plan: Patient uses 4 L nasal cannula at nighttime. She has been wearing her oxygen for the last couple of days due to SpO2 in the high 70s to low 80s with minimal activity at home. Likely related to above. PE seems less likely. Given some discomfort with palpation of the calves, lower extremity venous ultrasounds have been ordered. Consider CTA of the chest depending on her course. Wean oxygen as tolerated. (3) Type 2 diabetes mellitus: Code(s): E11.9 - Type 2 diabetes mellitus without complications Status: Acute Assessment and Plan: Initiate sliding scale insulin, Accu-Cheks, and hypoglycemic protocol. Check hemoglobin A1c. (4) Tobacco abuse: Code(s): Z72.0 - Tobacco use Status: Acute Assessment and Plan: Smoking cessation is imperative in was discussed. She declines the need for nicotine patch, gum, etc.. (5) Hypothyroidism: Code(s): E03.9 - Hypothyroidism, unspecified Status: Acute Assessment and Plan: Continue levothyroxine and check TSH. (6) Hepatic steatosis: Code(s): K76.0 - Fatty (change of) liver, not elsewhere classified Status: Acute Assessment and Plan: Transaminitis on labs, stable over the last several years. Known to the patient, she has been evaluated for this in the past. No further workup needed as an inpatient. Plan left eye swelling: Likely some irritation from oxygen possibly. This is worse today. Will get CT face to further evaluate. Start Unasyn for facial cellulitis/Dacryo cystitis, tear duct blockage due to oxygen ?? Subjective Date/time seen: 12/14/22 12:37 Interval history: Shortness of breath with exertion. Left eye swelling has worsened and painful. No other complaints. Review of Systems Review of Systems: All systems reviewed & are unremarkable except as noted in HPI and below Exam Narrative: General: Chronically ill-appearing female in the semi-Ashley position in bed in no acute distress. HEENT: PERRL, EOMI. Sclera anicteric. Xanthelasma bilateral upper eyelids. Oral mucosa moist. Edentulous. Left medial eye bleed with swollen and red tender to touch Neck: Supple. No lymphadenopathy or JVD. Respiratory: Respirations are nonlabored and she is speaking in full sentences. Lung sounds are diminished throughout with mild rhonchi no significant wheezing heard today Cardiovascular: Regular rate and rhythm with S1-S2. Gastrointestinal: Abdomen is soft, nontender, and nondistended with positive bowel sounds. Skin: Warm and dry. No rash or lesions on limited exam. Extremities: No cyanosis, clubbing, or edema. Radial and pedal pulses intact. She is tender to palpation of the calves. No knots or cords. Equivocal Homans sign bilaterally. Neurological: Alert. Cranial nerves 2-12 are grossly intact. No gross focal deficits to casual conversation. Psychiatric: Pleasant and cooperative with normal mood and affect. Judgment and insight intact. Objective Data Vital Signs Vital Signs: Vital Signs - 24 hr 12/13/22 14:22 12/13/22 14:36 12/13/22 13:00 Temperature 97.5 F L Pulse Rate 72 75 67 Respiratory Rate 20 20 20 Blood Pres
[2022-12-14] MEDS: INSULIN ASPART (*BKC) 100 UNITS/ML SUB-Q ×2 (12:38→17:07)
[2022-12-14] MEDS: AMPICILLIN SULB 1.5 GM/NS 50ML 1.5 GM/50 ML VIAL IVPB ×2 (14:29→17:08)
[2022-12-14 17:04] LABS: Glucose Point of Care 377 mg/dl (65-105)
[2022-12-14 20:17] LABS: Glucose Point of Care 327 mg/dl (65-105)
[2022-12-15] VITALS (12 sets, daily range): BP systolic 105–127; BP diastolic 73–78; PULSE 64–79; RESP 16–20; TEMP 36–36.3; O2SAT 94–98
[2022-12-15] MEDS: AMPICILLIN SULB 1.5 GM/NS 50ML 1.5 GM/50 ML VIAL IVPB ×4 (00:13→17:42)
[2022-12-15] MEDS: ALBUTEROL SULFATE NEB 2.5 MG/3 ML INH INHALATION ×4 (02:59→22:13)
[2022-12-15] MEDS: IPRATROPIUM BR 0.02% INH SOLN 0.5 MG/2.5 ML VIAL INHALATION ×4 (02:59→22:13)
[2022-12-15 05:42] LABS: Basophils Absolute Auto 0.1 K/mm3 (0.0-0.1); Basophils Percent Auto 0.8 % (0.2-1.2); Eosinophils Absolute Auto 0.1 K/mm3 (0-0.3); Eosinophils Percent Auto 0.8 % (0-4.4); Hematocrit 44.9 % (37.0-47.0); Hemoglobin 14.4 g/dL (12.0-15.0); Immature Granulocyte Absolute 0.03 K/mm3 (0.00-0.031); Immature Granulocyte Percent A 0.5 % (0-0.5); Lymphocytes Absolute Auto 2.27 K/mm3 (0.9-3.2); Lymphocytes Percent Auto 36.1 % (18.3-44.2); Mean Corpuscular HGB Conc 32.1 g/dl (32-36); Mean Corpuscular Hemoglobin 28.5 pg (26-34); Mean Corpuscular Volume 88.9 fl (80-100); Mean Platelet Volume 8.8 fl (7.4-10.4); Monocytes Absolute Auto 0.6 K/mm3 (0.1-0.6); Monocytes Percent Auto 9.9 % (2.6-8.5); Neutrophils Absolute Auto 3.3 K/mm3 (1.3-6.7); Neutrophils Percent Auto 51.9 % (45.5-73.1); Platelet Count Result 237 k/mm3 (150-375); Red Blood Count 5.05 M/mm3 (4.2-5.4); Red Cell Distribution Width 13.7 % (11.5-14.5); White Blood Count 6.3 K/mm3 (4.5-10.0)
[2022-12-15 05:50] LABS: Alanine Aminotransferase 65 U/L (6-35); Albumin Level 4.2 g/dL (3.5-5.1); Alkaline Phosphatase 103 U/L (38-126); Anion Gap 5 mmol/L (8-16); Aspartate Amino Transferase 38 U/L (14-36); Bilirubin,Total 0.5 mg/dL (0.2-1.3); Blood Urea Nitrogen 12 mg/dL (7-17); Carbon Dioxide 32 mmol/L (22-30); Chloride 99 mmol/L (98-107); Estimated CRCL calculation 141 ml/min; Estimated Glomerular Filt Rate > 60; Glucose 148 mg/dL (65-110); Magnesium 2.1 mg/dL (1.6-2.3); Sodium 136 mmol/L (137-145)
[2022-12-15] MEDS: ACETAMINOPHEN 500 MG TABLET 1000 MG PO ×2 (05:56→20:34)
[2022-12-15] MEDS: FLUTICASONE/UMECLIDIN/VILANTER 100-62.5-25 MCG ELLIPTA 1 PUFF INHALATION (08:40)
[2022-12-15] MEDS: predniSONE 10 MG TABLET 30 MG PO (09:35)
[2022-12-15] MEDS: AZITHROMYCIN 250 MG TABLET PO (09:35)
[2022-12-15] MEDS: ENOXAPARIN 40 MG/0.4 ML SYRINGE SUB-Q (09:35)
[2022-12-15 11:47] LABS: Glucose Point of Care 174 mg/dl (65-105)
--- NOTE | 2022-12-15 12:47 | PM.IMPN ---
Progress Note: A&P Assessment and Plan (1) Acute exacerbation of chronic obstructive airways disease: Code(s): J44.1 - Chronic obstructive pulmonary disease with (acute) exacerbation Status: Acute Assessment and Plan: She has been started on scheduled bronchodilators. Her glucose spiked well above 300 following Solu-Medrol thus will do a short burst of low-dose prednisone instead. She has been started on antibiotics given productive cough and worsening shortness of breath. No evidence of pneumonia on imaging.Taper prednisone to 20 mg daily (2) Chronic respiratory failure with hypoxia, on home O2 therapy: Code(s): J96.11 - Chronic respiratory failure with hypoxia; Z99.81 - Dependence on supplemental oxygen Status: Acute Assessment and Plan: Patient uses 4 L nasal cannula at nighttime. She has been wearing her oxygen for the last couple of days due to SpO2 in the high 70s to low 80s with minimal activity at home. Likely related to above. PE seems less likely. Given some discomfort with palpation of the calves, lower extremity venous ultrasounds have been ordered. Consider CTA of the chest depending on her course. Wean oxygen as tolerated. (3) Type 2 diabetes mellitus: Code(s): E11.9 - Type 2 diabetes mellitus without complications Status: Acute Assessment and Plan: Initiate sliding scale insulin, Accu-Cheks, and hypoglycemic protocol. Check hemoglobin A1c. (4) Tobacco abuse: Code(s): Z72.0 - Tobacco use Status: Acute Assessment and Plan: Smoking cessation is imperative in was discussed. She declines the need for nicotine patch, gum, etc.. (5) Hypothyroidism: Code(s): E03.9 - Hypothyroidism, unspecified Status: Acute Assessment and Plan: Continue levothyroxine and check TSH. (6) Hepatic steatosis: Code(s): K76.0 - Fatty (change of) liver, not elsewhere classified Status: Acute Assessment and Plan: Transaminitis on labs, stable over the last several years. Known to the patient, she has been evaluated for this in the past. No further workup needed as an inpatient. Plan left eye swelling: Likely some irritation from oxygen possibly. This is worse today. Will get CT face to further evaluate. Start Unasyn for facial cellulitis/Dacryo cystitis, tear duct blockage due to oxygen ?? CT face with preorbital cellulitis. Will do cold compresses and continue Unasyn as ordered Subjective Date/time seen: 12/15/22 12:47 Interval history: Left eye swelling has about the same. sob on exertion. no chest pain. no new complaints. Review of Systems Review of Systems: All systems reviewed & are unremarkable except as noted in HPI and below Exam Narrative: General: Chronically ill-appearing female in the semi-Ashley position in bed in no acute distress. HEENT: PERRL, EOMI. Sclera anicteric. Xanthelasma bilateral upper eyelids. Oral mucosa moist. Edentulous. Left medial eye bleed with swollen and red tender to touch slightly worse upper eyelid involved now Neck: Supple. No lymphadenopathy or JVD. Respiratory: Respirations are nonlabored and she is speaking in full sentences. Lung sounds are diminished throughout with mild rhonchi no significant wheezing heard today Cardiovascular: Regular rate and rhythm with S1-S2. Gastrointestinal: Abdomen is soft, nontender, and nondistended with positive bowel sounds. Skin: Warm and dry. No rash or lesions on limited exam. Extremities: No cyanosis, clubbing, or edema. Radial and pedal pulses intact. She is tender to palpation of the calves. No knots or cords. Equivocal Homans sign bilaterally. Neurological: Alert. Cranial nerves 2-12 are grossly intact. No gross focal deficits to casual conversation. Psychiatric: Pleasant and cooperative with normal mood and affect. Judgment and insight intact. Objective Data Vital Signs Vital Signs: Vital Signs - 24 hr 12/14/22
[2022-12-15 17:04] LABS: Glucose Point of Care 326 mg/dl (65-105)
[2022-12-15] MEDS: INSULIN ASPART (*BKC) 100 UNITS/ML SUB-Q (17:31)
[2022-12-15 21:59] LABS: Glucose Point of Care 130 mg/dl (65-105)
[2022-12-16] VITALS (13 sets, daily range): BP systolic 107–122; BP diastolic 62–78; PULSE 64–86; RESP 16–20; TEMP 35.9–36.6; O2SAT 92–98
[2022-12-16] MEDS: IPRATROPIUM BR 0.02% INH SOLN 0.5 MG/2.5 ML VIAL INHALATION ×4 (02:29→20:27)
[2022-12-16] MEDS: ALBUTEROL SULFATE NEB 2.5 MG/3 ML INH INHALATION ×4 (02:29→20:27)
[2022-12-16] MEDS: AMPICILLIN SULB 1.5 GM/NS 50ML 1.5 GM/50 ML VIAL IVPB ×5 (04:08→23:44)
[2022-12-16] MEDS: BENZONATATE 100 MG CAPSULE PO ×2 (04:52→19:45)
[2022-12-16] MEDS: FLUTICASONE/UMECLIDIN/VILANTER 100-62.5-25 MCG ELLIPTA 1 PUFF INHALATION ×2 (07:10→20:40)
[2022-12-16 07:31] LABS: Glucose Point of Care 137 mg/dl (65-105)
[2022-12-16] MEDS: ENOXAPARIN 40 MG/0.4 ML SYRINGE SUB-Q (09:19)
[2022-12-16] MEDS: predniSONE 20 MG TABLET PO (09:19)
[2022-12-16 11:24] LABS: Glucose Point of Care 175 mg/dl (65-105)
[2022-12-16] MEDS: INSULIN ASPART (*BKC) 100 UNITS/ML SUB-Q (17:10)
[2022-12-16 17:15] LABS: Glucose Point of Care 315 mg/dl (65-105)
--- NOTE | 2022-12-16 17:21 | PM.IMPN ---
Progress Note: A&P Assessment and Plan (1) Acute exacerbation of chronic obstructive airways disease: Code(s): J44.1 - Chronic obstructive pulmonary disease with (acute) exacerbation Status: Acute Assessment and Plan: She has been started on scheduled bronchodilators. Her glucose spiked well above 300 following Solu-Medrol thus will do a short burst of low-dose prednisone instead. She has been started on antibiotics given productive cough and worsening shortness of breath. No evidence of pneumonia on imaging.Taper prednisone to 20 mg daily (2) Chronic respiratory failure with hypoxia, on home O2 therapy: Code(s): J96.11 - Chronic respiratory failure with hypoxia; Z99.81 - Dependence on supplemental oxygen Status: Acute Assessment and Plan: Patient uses 4 L nasal cannula at nighttime. She has been wearing her oxygen for the last couple of days due to SpO2 in the high 70s to low 80s with minimal activity at home. Likely related to above. PE seems less likely. Given some discomfort with palpation of the calves, lower extremity venous ultrasounds have been ordered. Consider CTA of the chest depending on her course. Wean oxygen as tolerated. (3) Type 2 diabetes mellitus: Code(s): E11.9 - Type 2 diabetes mellitus without complications Status: Acute Assessment and Plan: Initiate sliding scale insulin, Accu-Cheks, and hypoglycemic protocol. Check hemoglobin A1c. (4) Tobacco abuse: Code(s): Z72.0 - Tobacco use Status: Acute Assessment and Plan: Smoking cessation is imperative in was discussed. She declines the need for nicotine patch, gum, etc.. (5) Hypothyroidism: Code(s): E03.9 - Hypothyroidism, unspecified Status: Acute Assessment and Plan: Continue levothyroxine and check TSH. (6) Hepatic steatosis: Code(s): K76.0 - Fatty (change of) liver, not elsewhere classified Status: Acute Assessment and Plan: Transaminitis on labs, stable over the last several years. Known to the patient, she has been evaluated for this in the past. No further workup needed as an inpatient. Plan left eye swelling: Likely some irritation from oxygen possibly. This is worse today. Will get CT face to further evaluate. Start Unasyn for facial cellulitis/Dacryo cystitis, tear duct blockage due to oxygen ?? CT face with preorbital cellulitis. Will do cold compresses and continue Unasyn as ordered Pus drainage out of her medial eye. Continue antibiotics Subjective Date/time seen: 12/16/22 17:21 Interval history: Left eye swelling has finally drained pus out. She is feeling better now there shortness of breath on exertion has improved about 50-60% since admission. No new complaints Review of Systems Review of Systems: All systems reviewed & are unremarkable except as noted in HPI and below Exam Narrative: General: Chronically ill-appearing female in the semi-Aslhey position in bed in no acute distress. HEENT: PERRL, EOMI. Sclera anicteric. Xanthelasma bilateral upper eyelids. Oral mucosa moist. Edentulous. Left medial eye bleed with swollen and red tender to touch and now has drain with scab present upper eyelid swelling has improved Neck: Supple. No lymphadenopathy or JVD. Respiratory: Respirations are nonlabored and she is speaking in full sentences. Lung sounds are diminished throughout with mild rhonchi no significant wheezing heard today Cardiovascular: Regular rate and rhythm with S1-S2. Gastrointestinal: Abdomen is soft, nontender, and nondistended with positive bowel sounds. Skin: Warm and dry. No rash or lesions on limited exam. Extremities: No cyanosis, clubbing, or edema. Radial and pedal pulses intact. She is tender to palpation of the calves. No knots or cords. Equivocal Homans sign bilaterally. Neurological: Alert. Cranial nerves 2-12 are grossly intact. No gross focal deficits to casual conversation. Psych
[2022-12-16] MEDS: ACETAMINOPHEN 500 MG TABLET 1000 MG PO (19:45)
[2022-12-16 20:19] LABS: Glucose Point of Care 197 mg/dl (65-105)
[2022-12-17] VITALS (15 sets, daily range): BP systolic 106–117; BP diastolic 66–67; PULSE 67–99; RESP 18; TEMP 35.8–36.1; O2SAT 87–99
[2022-12-17] MEDS: IPRATROPIUM BR 0.02% INH SOLN 0.5 MG/2.5 ML VIAL INHALATION ×3 (02:03→13:39)
[2022-12-17] MEDS: ALBUTEROL SULFATE NEB 2.5 MG/3 ML INH INHALATION ×3 (02:03→13:39)
[2022-12-17] MEDS: AMPICILLIN SULB 1.5 GM/NS 50ML 1.5 GM/50 ML VIAL IVPB ×2 (05:02→11:51)
[2022-12-17 07:32] LABS: Basophils Absolute Auto 0.1 K/mm3 (0.0-0.1); Basophils Percent Auto 0.7 % (0.2-1.2); Eosinophils Absolute Auto 0.1 K/mm3 (0-0.3); Eosinophils Percent Auto 1.8 % (0-4.4); Hematocrit 46.6 % (37.0-47.0); Immature Granulocyte Absolute 0.09 K/mm3 (0.00-0.031); Immature Granulocyte Percent A 1.3 % (0-0.5); Lymphocytes Absolute Auto 2.23 K/mm3 (0.9-3.2); Lymphocytes Percent Auto 31.5 % (18.3-44.2); Mean Corpuscular HGB Conc 32.2 g/dl (32-36); Mean Corpuscular Hemoglobin 28.6 pg (26-34); Mean Corpuscular Volume 88.8 fl (80-100); Monocytes Absolute Auto 0.5 K/mm3 (0.1-0.6); Monocytes Percent Auto 7.5 % (2.6-8.5); Neutrophils Percent Auto 57.2 % (45.5-73.1); Platelet Count Result 262 k/mm3 (150-375); Red Blood Count 5.25 M/mm3 (4.2-5.4); Red Cell Distribution Width 13.7 % (11.5-14.5); White Blood Count 7.1 K/mm3 (4.5-10.0)
[2022-12-17 07:43] LABS: Alanine Aminotransferase 76 U/L (6-35); Albumin Level 4.5 g/dL (3.5-5.1); Alkaline Phosphatase 104 U/L (38-126); Anion Gap 6 mmol/L (8-16); Aspartate Amino Transferase 44 U/L (14-36); Bilirubin,Total 0.5 mg/dL (0.2-1.3); Blood Urea Nitrogen 12 mg/dL (7-17); Calcium 9.3 mg/dL (8.4-10.2); Carbon Dioxide 34 mmol/L (22-30); Chloride 99 mmol/L (98-107); Estimated CRCL calculation 116 ml/min; Estimated Glomerular Filt Rate > 60; Glucose 139 mg/dL (65-110); Magnesium 2.1 mg/dL (1.6-2.3); Potassium 4.1 mmol/L (3.4-5.0); Sodium 139 mmol/L (137-145)
[2022-12-17 07:54] LABS: Glucose Point of Care 165 mg/dl (65-105)
[2022-12-17] MEDS: ENOXAPARIN 40 MG/0.4 ML SYRINGE SUB-Q (09:07)
[2022-12-17] MEDS: predniSONE 20 MG TABLET PO (09:07)
[2022-12-17] MEDS: FLUTICASONE/UMECLIDIN/VILANTER 100-62.5-25 MCG ELLIPTA 1 PUFF INHALATION (09:39)
[2022-12-17 11:18] LABS: Glucose Point of Care 315 mg/dl (65-105)
[2022-12-17] MEDS: INSULIN ASPART (*BKC) 100 UNITS/ML SUB-Q (11:49)
--- NOTE | 2022-12-17 14:09 | PM.DS ---
DS: Admitting Diagnosis Discharge Date 12/17/2022 Admitting Diagnosis shortness of breath DS: Discharge Diagnosis Discharge Diagnosis (1) Acute exacerbation of chronic obstructive airways disease: Code(s): J44.1 - Chronic obstructive pulmonary disease with (acute) exacerbation Status: Acute (2) Chronic respiratory failure with hypoxia, on home O2 therapy: Code(s): J96.11 - Chronic respiratory failure with hypoxia; Z99.81 - Dependence on supplemental oxygen Status: Acute (3) Type 2 diabetes mellitus: Code(s): E11.9 - Type 2 diabetes mellitus without complications Status: Acute (4) Tobacco abuse: Code(s): Z72.0 - Tobacco use Status: Acute (5) Hypothyroidism: Code(s): E03.9 - Hypothyroidism, unspecified Status: Acute (6) Hepatic steatosis: Code(s): K76.0 - Fatty (change of) liver, not elsewhere classified Status: Acute DS: Summary Hospital Course Hospital Course: # Acute exacerbation of chronic obstructive airways disease She has been started on scheduled bronchodilators. Her glucose spiked well above 300 following Solu-Medrol. Thus Started last short burst of low-dose prednisone instead. She has been started on antibiotics given productive cough and worsening shortness of breath. No evidence of pneumonia on imaging. continue taper prednisone over the next few days at discharge # Chronic respiratory failure with hypoxia, on home O2 therapy: Patient uses 4 L nasal cannula at nighttime. She has been wearing her oxygen for the last couple of days due to SpO2 in the high 70s to low 80s with minimal activity at home. Likely related to above.? PE seems less likely. Given some discomfort with palpation of the calves, lower extremity venous ultrasounds have been ordered. Consider CTA of the chest depending on her course. Wean oxygen as tolerated. # Type 2 diabetes mellitus: chest Initiate sliding scale insulin, Accu-Cheks, and hypoglycemic protocol. A1c 8.6. Will start metformin # Tobacco abuse: Smoking cessation is imperative in was discussed.? She declines the need for nicotine patch, gum, etc. # Hypothyroidism: Continue levothyroxine and check TSH. # Hepatic steatosis: Transaminitis on labs, stable over the last several years. Known to the patient, she has been evaluated for this in the past. No further workup needed as an inpatient. # left periorbital cellulitis improved with cold compresses and Unasyn. It did drain pus during the hospital stay. CT face was done which showed findings of cellulitis without any drainable abscess. Will switch antibiotic to Bactrim at discharge Time Spent with Patient Time attestation: Total time spent providing and/or coordinating discharge services: Exam Narrative: General: Chronically ill-appearing female in the semi-Ashley position in bed in no acute distress. HEENT: PERRL, EOMI. Sclera anicteric. Xanthelasma bilateral upper eyelids. Oral mucosa moist. Edentulous. Left medial eye bleed with swollen and red tender to touch and now has drain with scab present upper eyelid swelling has improved Neck: Supple. No lymphadenopathy or JVD. Respiratory: Respirations are nonlabored and she is speaking in full sentences. Lung sounds are diminished throughout with mild rhonchi no significant wheezing heard today Cardiovascular: Regular rate and rhythm with S1-S2. Gastrointestinal: Abdomen is soft, nontender, and nondistended with positive bowel sounds. Skin: Warm and dry. No rash or lesions on limited exam. Extremities: No cyanosis, clubbing, or edema. Radial and pedal pulses intact. She is tender to palpation of the calves. No knots or cords. Equivocal Homans sign bilaterally. Neurological: Alert. Cranial nerves 2-12 are grossly intact. No gross focal deficits to casual conversation. Psychiatric: Pleasant and cooperative with normal mood and affect. Judgment and insight intact. DS: Data Data Completed and Pending
--- NOTE | 2022-12-17 14:56 | PC.NURSE ---
Addendum entered by Windy Hoover RN 12/17/22 16:17: Home O2 eval done on pt. Original Note: Pt is A&O4 female. Pt has had no reports of pain today. Pt continues to have a cough. Pt compliant with care. Pt participated and contributed in plan of care while here. Pt expresses no needs at this time. Pt discharging home today. Will continue to monitor pt until discharge.
--- NOTE | 2022-12-17 15:39 | HOMEO2EVAL ---
Evaluation was performed at [facility] Home Oxygen Evaluation RC: Home Oxygen (O2) Evaluation Start: 12/17/22 12:07 Freq: ONCE Status: Active Protocol: RPE Activity Type Activity Date Activity User E-sign Co-sign Detail Recorded Client Recorded Date Recorded By Document 12/17/22 15:00 TYRONE [email or web address] 12/17/22 15:39 TYRONE Document 12/17/22 15:01 TYRONE [email or web address] 12/17/22 15:39 TYRONE Document 12/17/22 15:02 TYRONE [email or web address] 12/17/22 15:39 TYRONE Document 12/17/22 15:06 TYRONE [email or web address] 12/17/22 15:39 TYRONE Document 12/17/22 15:15 TYRONE [email or web address] 12/17/22 15:39 TYRONE 12/17/22 12/17/22 12/17/22 15:00 15:01 15:02 Home O2 Evaluation [Oxygen] -Test Phase Resting Resting Resting -Oxygen Delivery Room Air Nasal Cannula Nasal Cannula -Oxygen Flow Rate (L/min) 1 2 [Pulse Oximetry] -Pulse Oximetry (90-100 %) 87 L 88 L 92 [Pulse Rate] -Pulse Rate (60-100 beats/min) 82 [Exercise] -Ambulation Distance (feet) -Ambulation Distance (meters) [Comments] -Home Oxygen Evaluation Comments [Charges] -Treatment Charges O2 Evaluation - Inpatient 12/17/22 12/17/22 15:06 15:15 Home O2 Evaluation [Oxygen] -Test Phase Exercise Resting -Oxygen Delivery Nasal Cannula Nasal Cannula -Oxygen Flow Rate (L/min) 2 2 [Pulse Oximetry] -Pulse Oximetry (90-100 %) 90 93 [Pulse Rate] -Pulse Rate (60-100 beats/min) 99 89 [Exercise] -Ambulation Distance (feet) 300 -Ambulation Distance (meters) 91.43 [Comments] -Home Oxygen Evaluation Comments PT REQUIRES 2 L AT REST AND WITH ACTIVITY [Charges] -Treatment Charges
--- NOTE | 2022-12-17 15:43 | PCRCNOTE ---
HOME O2 EVAL DONE, PT NEEDS 2 L AT REST AND WITH ACTIVITY. PT ALREADY HAD HOME O2 FOR NOCURNAL USE ONLY WITH [facility]. SHE IS REQUESTING POC, I INCLUDED REQUEST ON ORDER. WILL CONTACT [facility],[phone] TO LET THEM KNOW SHE WILL BE D/C SOON AND WILL NEED PORTABLE O2 SET UP AT HOME TODAY
== END 2022-12-17 16:40 | disposition home or self-care (01) | DRG 191 ==
LOC: ANHED 10:51 → ANH3MEDSUR 11:22
PROVIDERS: Physician Assistant; Admitting Provider Chiropractor; Emergency Provider Emergency Medicine; Visit Provider Internal Medicine
DX: J44.1 Chronic obstructive pulmonary disease with (acute) exacerbation (principal); J96.10 Chronic respiratory failure, unspecified whether with hypoxia or hypercapnia; L03.213 Periorbital cellulitis; K21.9 Gastro-esophageal reflux disease without esophagitis; K76.0 Fatty (change of) liver, not elsewhere classified; K44.9 Diaphragmatic hernia without obstruction or gangrene; I83.93 Asymptomatic varicose veins of bilateral lower extremities; E78.00 Pure hypercholesterolemia, unspecified; E06.3 Autoimmune thyroiditis; E03.9 Hypothyroidism, unspecified; F17.210 Nicotine dependence, cigarettes, uncomplicated; Z85.71 Personal history of Hodgkin lymphoma; Z99.81 Dependence on supplemental oxygen
CPT/HCPCS: 36415; 70486; 71045; 80053; 82948; 83036; 83735; 83880; 84484; 85025; 85027; 85610; 85730; 87040; 93005; 93970; 94618; 94640; 94667; 94668; 96372; 96374; 96375; 99285; A9270; C9113; G0378; J0295; J1650; J1815; J2930; J7512

== ENCOUNTER 2023-01-02 10:52 | Outpatient (CLI) | payer MEDICARE, MEDICAID, SELFPAY ==
[2023-01-02 11:41] LABS: LDL Cholesterol Direct 129 mg/dL
[2023-01-02 11:49] LABS: Creatinine Urine 85.5 mg/dL
[2023-01-02 11:50] LABS: Alanine Aminotransferase 89 U/L (6-35); Albumin Level 4.9 g/dL (3.5-5.1); Alkaline Phosphatase 115 U/L (38-126); Anion Gap 8 mmol/L (8-16); Aspartate Amino Transferase 65 U/L (14-36); Bilirubin,Total 0.6 mg/dL (0.2-1.3); Blood Urea Nitrogen 9 mg/dL (7-17); Calcium 10.3 mg/dL (8.4-10.2); Carbon Dioxide 31 mmol/L (22-30); Chloride 96 mmol/L (98-107); Estimated Glomerular Filt Rate > 60; Glucose 248 mg/dL (65-110); Potassium 4.3 mmol/L (3.4-5.0); Sodium 135 mmol/L (137-145)
[2023-01-02 11:54] LABS: MALB Creatinine Ratio 92.6 mg/g (0-30); Microalbumin Urine Random 79.2 mg/L (0-16.7)
[2023-01-02 11:59] LABS: Cholesterol 358 mg/dL (0-200); Total Triiodothyronine (T3) 1.46 NG/ML (0.97-1.69); Triglycerides 815 mg/dL (<150)
[2023-01-07 09:01] LABS: ANA Cascade Screen Negative (Negative)
[2023-01-07 11:21] LABS: Anti Cyclic Citrullinated Pept <16 Units (<20)
== END 2023-01-02 10:53 | disposition home or self-care (01) ==
PROVIDERS: PCP Family Medicine; Visit Provider Family Medicine
DX: M19.90 Unspecified osteoarthritis, unspecified site (principal); Z82.61 Family history of arthritis; I10 Essential (primary) hypertension; E78.2 Mixed hyperlipidemia; E11.9 Type 2 diabetes mellitus without complications; E03.9 Hypothyroidism, unspecified
CPT/HCPCS: 36415; 80053; 80061; 82043; 84443; 84480; 86038; 86200

== ENCOUNTER 2023-03-12 09:18 | Outpatient (CLI) | payer MEDICARE, SELFPAY ==
--- NOTE | 2023-04-07 10:21 | WPDSLEEPSTUD ---
Sleep Study Date of Study: 03/12/23 Ordering Provider: Hector Levi MD Interpreting Physician: Gege Cristina MD Sleep Study Type: Polysomnogram Height: 1.73 m Weight: 85.275 kg Body Mass Index: 28.5 Neck Circumference (inches): 13.5 [place]: 12 Reason for Sleep Study Hypersomnolence; poor quality sleep Sleep History Nayeli Og is a 57-year-old female with history of poor sleep and excessive daytime sleepiness. She has chronic respiratory failure requiring oxygen, asthma, COPD, tobacco use, diabetes, nodular sclerosis stage III B Hodgkin's lymphoma diagnosed 05/30/2015, hypothyroidism and TIA. She was hospitalized this December for increasing shortness of breath. She was treated for COPD exacerbation. She occasionally awakens from sleep short of breath. She frequently awakens at night with heartburn, belching or cough.??She frequently snores, occasionally snores loudly enough that others complain. She frequently has trouble sleeping when she has a cold. She occasionally suddenly wakes up gasping for breath during the night. She frequently has breathing problems at night. She frequently sweats excessively at night. She occasionally notices her heart pounding or beating irregularly during the night. She frequently falls asleep during the day, frequently involuntarily. She never falls asleep while driving. She never experiences loss of muscle tone with strong emotion. She rarely feels paralyzed on waking or falling asleep. She never experiences vivid dreams upon waking or falling asleep. She never feels afraid of going to sleep. She never has nightmares. She rarely recalls her dreams. She occasionally has thoughts racing through her mind. She occasionally feels sad or depressed. She occasionally feels anxiety or worry about things. She occasionally notices parts of her body jerk. She frequently feels crawling or aching feelings in her legs. She frequently feels leg pain at night. She never grinds her teeth or has morning jaw pain. She frequently feels bothered by pain during the day and awakened by pain during the night. She occasionally wakes up feeling stiff, sore, and achy in the morning with pain in her neck, spine, or joints. ? ? Normal bedtime is around 10:00 p.m., taking about 30-40 minutes fall asleep. She typically gets about 5-7 hours of sleep per night. Her wake up time is 6:00 a.m.. On weekends, bedtime is 11, wake time is between 6 and 7:00 a.m.. She wakes during the night to go to the bathroom once or twice. She takes naps in the afternoon or evening. A short nap is not refreshing. Habits:??Tobacco: 1 pack per day Caffeine: 3-4 servings a day Alcohol:none Recreational substances:none [facility] Past Medical History Medical History Asthma Chronic respiratory failure with hypoxia, on home O2 therapy COPD with emphysema Dyslipidemia Gastroesophageal reflux disease Hepatic steatosis Hiatal hernia Recurrent hiatal hernia despite Lora. History of gastric ulcer Hodgkin lymphoma (2014) Hodgkin's disease in adult Hx of abnormal mammogram 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 Lump of right thigh Nicotine dependence, unspecified, uncomplicated Pneumonia, organism unspecified Pure hypercholesterolemia Tobacco abuse Transient ischemic attack (2009) Type 2 diabetes mellitus Surgical History Surgical History History of appendectomy History of bone marrow biopsy History of cardiac cath History of cardiac catheterization History of hysterectomy with unilateral oophorectomy For cervical dysplasia. History of lymph node biopsy Left anterior cervical chain, resection of the left submandibular gland due to increased uptake on PET scan and pathology was negative. History of Lora fundoplication History of open reduction and internal fixation (ORIF) procedure Repair left 4th finger fracture. History of remova
[2023-04-07 11:57] VITALS: BMI 28.5
== END 2023-03-13 07:56 | disposition home or self-care (01) ==
LOC: ANHCSM 09:19
PROVIDERS: PCP Family Medicine; Visit Provider Internal Medicine Pulmonary Disease
DX: G47.10 Hypersomnia, unspecified (principal); J44.9 Chronic obstructive pulmonary disease, unspecified; Z99.81 Dependence on supplemental oxygen
CPT/HCPCS: 95810

== ENCOUNTER 2023-03-14 18:12 | Emergency (ER) | payer MEDICARE, MEDICAID, SELFPAY ==
--- NOTE | ~2023-03-14 | XR_ITS ---
EXAM: XR elbow RT min 3V DATE: 03/14/2023 19:27 HISTORY: WOUND ON RIGHT ELBOW . COMPARISON: None available. FINDINGS: Decreased mineralization. No fracture or dislocation. No lytic or blastic lesion. Mild deg enerative changes. No erosion or periosteal change. Soft tissue swelling over the olecranon. IMPRESSION: No acute osseous finding. Olecranon soft tissue swelling/bursitis. Reviewed, dictated and finalized at location [facility].
--- NOTE | 2023-03-14 18:15 | ED.UPPEXIN ---
HPI - Extremity Injury (Upper) General Chief Complaint: Extremity Injury, Upper Stated Complaint: Right Arm Pain Time Seen by Provider: 03/14/23 18:16 Source: patient Mode of arrival: ambulatory Limitations: no limitations History of Present Illness HPI narrative: Patient is a 49-year-old female who presents with right elbow wound and swelling. Patient states symptoms started Friday, unsure if it was an abrasion or a insect bite. Patient has been putting self on wound and covering with a Band-Aid. Patient states the swelling is slightly worse but the pain is not radiating up and down arm. States that has been since transitioned to wound and is tender to touch. Denies any numbness or tingling more than her known neuropathy. Denies any fever, chills, nausea, vomiting, diarrhea. Related Data Home Medications Medication Instructions Recorded Confirmed fluticasone fur. 100 mcg-umeclid inhalation 03/14/23 62.5 mcg-vilant 25 mcg inhalat.powder (Trelegy Ellipta) Allergies Allergy/AdvReac Type Severity Reaction Status Date / Time latex Allergy Mild ITCHING Verified 03/14/23 18:18 Review of Systems Review of Systems: All systems reviewed & are unremarkable except as noted in HPI and below Constitutional: Constitutional: Denies body ache(s), Denies chills, Denies fatigue, Denies fever(s), Denies headache(s), Denies malaise and Denies weakness Eyes: Eyes: Denies blurry vision, Denies irritation and Denies loss of vision ENT: Denies otalgia, Denies headache(s), Denies nasal discharge, Denies sinus pain and Denies sore throat Cardiovascular: Cardiovascular: Denies chest pain, Denies irregular heart rhythm and Denies dyspnea Respiratory: Respiratory: Denies dyspnea Gastrointestinal: Gastrointestinal: Denies abdominal pain, Denies melena, Denies hematochezia, Denies diarrhea, Denies nausea and Denies vomiting Musculoskeletal: Musculoskeletal: Denies back pain, Denies myalgias, Reports arthralgias and Reports joint swelling Integumentary/Breasts: Skin/Breast: Denies pruritus and Denies rash Neurologic: Denies headache(s), Denies loss of vision and Denies weakness Psychiatric: Psychiatric: Reports no additional psychiatric complaints Endocrine: Endocrine: Denies fatigue PMFSH Past Medical History Medical History Asthma Chronic respiratory failure with hypoxia, on home O2 therapy COPD with emphysema Dyslipidemia Gastroesophageal reflux disease Hepatic steatosis Hiatal hernia Recurrent hiatal hernia despite Lora. History of gastric ulcer Hodgkin lymphoma (2014) Hodgkin's disease in adult Hx of abnormal mammogram 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 Lump of right thigh Nicotine dependence, unspecified, uncomplicated Pneumonia, organism unspecified Pure hypercholesterolemia Tobacco abuse Transient ischemic attack (2009) Type 2 diabetes mellitus Surgical History Surgical History History of appendectomy History of bone marrow biopsy History of cardiac cath History of cardiac catheterization History of hysterectomy with unilateral oophorectomy For cervical dysplasia. History of lymph node biopsy Left anterior cervical chain, resection of the left submandibular gland due to increased uptake on PET scan and pathology was negative. History of Lora fundoplication History of open reduction and internal fixation (ORIF) procedure Repair left 4th finger fracture. History of removal of Port-a-Cath Right chest History of right inguinal hernia repair History of submandibular gland removal Family History Family History Father Diabetes mellitus Hypertension Age older than 80 years Grandparent Lymphoma Other Ovarian cancer Mother Scoliosis Osteoporosis Age greater than 75 years Other Family history of cardiovascular disea
[2023-03-14 18:33] VITALS: BP 107/73; PULSE 87; RESP 16; TEMP 36.7; O2SAT 95
== END 2023-03-14 19:48 | disposition home or self-care (01) ==
PROVIDERS: Emergency Provider Nurse Practitioner Family; PCP Family Medicine
DX: M71.121 Other infective bursitis, right elbow (principal); F17.210 Nicotine dependence, cigarettes, uncomplicated; J44.9 Chronic obstructive pulmonary disease, unspecified; K21.9 Gastro-esophageal reflux disease without esophagitis; K76.0 Fatty (change of) liver, not elsewhere classified; E03.9 Hypothyroidism, unspecified; E06.3 Autoimmune thyroiditis; E78.00 Pure hypercholesterolemia, unspecified; Z86.73 Personal history of transient ischemic attack (TIA), and cerebral infarction without residual deficits; E11.9 Type 2 diabetes mellitus without complications; Z85.71 Personal history of Hodgkin lymphoma
CPT/HCPCS: 73080; 99213; G0463

== ENCOUNTER 2023-03-31 12:31 | Outpatient (CLI) | payer MEDICARE, SELFPAY ==
--- NOTE | ~2023-03-31 | CT_ITS ---
CT Scan of the Chest without Contrast: Clinical Indication: Lung cancer screening, personal history of nicotine dependence Technique: Contiguous sections were acquired throughout the chest without intravenous contrast. Dose reduction technique was used on this scan by utilizing automated exposure control and iterative recon struction technique. The dose-length product (DLP) was 115.11 mGy-cm. COMPARISON: 09/26/2021 and 06/12/2020 Findings: There is no evidence of any significant mediastinal, hilar or axillary lymphadenopathy. Coronary robe ry calcifications are present. There is no evidence of pleural or pericardial effusion. There is severe emphysema. 3 mm left upper lobe probable granuloma noted. Images through the upper abdomen reveal [id number] hiatal hernia. Impression: Lung RADS 2: Benign appearance. 12 month follow-up screening CT advised. Severe emphysema. Reviewed, dictated and finalized at [facility]. Impression: Lung RADS 2: Benign appearance. 12 month follow-up screening CT advised. Severe emphysema.
[2023-03-31 13:49] LABS: Alveolar/Arterial O2 Gradient 44.9 mmHg; Base Excess ABG -0.6 mEq/l (+/-2.0); Carboxyhemoglobin 5.2 % THb (0-2.0); Fractional Inspired Oxygen 21 %; HCO3 ABG 23.7 mEq/l (22.0-26.0); Methemoglobin ABG 0.3 %THb (0-1.5); Oxygen Content ABG 19.7 %vol (16.0-22.0); Oxygen Saturation ABG 91.1 % (95.0-100.0); PCO2 ABG 38.1 mmHg (35.0-45.0); PO2 ABG 59.2 mmHg (80.0-100.0); PO2 FiO2 Ratio Arterial Blood 2.82 %; Reduced Hemoglobin 7.7 %THb (0-5.0); Total Hemoglobin 16.2 g/dL (12.0-18.0); pH ABG 7.412 (7.350-7.450)
[2023-03-31 14:02] LABS: Device ROOM AIR; Oxyhemoglobin 86.8 % THb (90.0-100.0); Site Drawn RIGHT BRACHIAL
--- NOTE | 2023-04-01 15:49 | WPDPFTINT ---
PFT Procedure Performed PFT Procedure Performed Spirometry with Pre/Post Bronchodilator Plethysmography (Lung Vol) Diffusing Cap (DLCO) Flow Vol Loop PFT Interpretation DOS: 03/31/2023 REQUESTING: Hector Levi MD REASON FOR TESTING: Dyspnea, COPD PULMONARY FUNCTION TESTS Results are not completely reliable or reproducible. repeat ability of spirometry FEV1 maneuver pre bronchodilator is Grade B. Repeat ability of spirometry FEV1 maneuver post bronchodilator is Grade A. Spirometry: Pre bronchodilator FEV1 is 2.23 L, 76% predicted, low end of normal. Pre bronchodilator FVC is 3.98 L, 107% predicted, normal. FEV1/FVC is 56%, reduced, consistent with airflow obstruction. The FEF 25-75 is 0.73 L, 28% predicted. After bronchodilator the FVC drops by 2%, the FEV1 dropped by 7%. The FEV1/FVC ratio was 53%, decreased consistent with airflow obstruction. The FEF 25-75 increases by 240 mL, 33%. Lung volumes: Total lung capacity is 5.83 L, 103%, normal. Residual volume is 1.85 L, 86%, normal. RV/TLC is 32%, normal. Airway resistance 145%. Diffusion: DLCO is 6.9, 30% predicted, severely decreased. DLCO/ VA is 2.54 L, mildly reduced, 59% predicted. Flow volume loop: Abnormal. There is mild coving of the expiratory limb. The inspiratory limb is truncated early IMPRESSION: Mild obstructive ventilatory impairment without response to bronchodilator. Normal lung volumes. Severe diffusion impairment which partially corrects for alveolar volume. Low diffusion with obstruction can be seen in various conditions including interstitial lung disease co-existing with COPD, sarcoidosis, lymphangioleiomyomatosis, cystic fibrosis, and bronchiolitis. Compared to a prior spirometry without bronchodilator on 06/06/2015, her values are now worse. FEV1 was 2.46 L, 89% predicted. FVC was 3.55 L, 98% predicted. FEV1/ FVC ratio was 69%. [id number] was 59%, no bronchodilator was given. Flow volume loop was also abnormal. No diffusion or lung volumes were obtained. Clinical correlation is recommended. Gege Cristina MD
== END 2023-03-31 12:32 | disposition home or self-care (01) ==
PROVIDERS: PCP Family Medicine; Visit Provider Internal Medicine Pulmonary Disease
DX: J44.9 Chronic obstructive pulmonary disease, unspecified (principal); Z87.891 Personal history of nicotine dependence; R06.00 Dyspnea, unspecified; R94.2 Abnormal results of pulmonary function studies
CPT/HCPCS: 36600; 71271; 82375; 82805; 83050; 94375; 94726; 94729

== ENCOUNTER 2023-05-22 11:12 | Outpatient (CLI) | payer MEDICARE, MEDICAID, SELFPAY ==
[2023-05-22 12:48] LABS: Alanine Aminotransferase 73 U/L (6-35); Albumin Level 4.5 g/dL (3.5-5.1); Alkaline Phosphatase 146 U/L (38-126); Anion Gap 8 mmol/L (8-16); Aspartate Amino Transferase 74 U/L (14-36); Bilirubin,Total 0.7 mg/dL (0.2-1.3); Blood Urea Nitrogen 10 mg/dL (7-17); Calcium 9.5 mg/dL (8.4-10.2); Carbon Dioxide 28 mmol/L (22-30); Chloride 99 mmol/L (98-107); Estimated Glomerular Filt Rate > 60; Glucose 284 mg/dL (65-110); Potassium 4.3 mmol/L (3.4-5.0); Sodium 135 mmol/L (137-145)
[2023-05-22 16:43] LABS: Hemoglobin A1C 11.6 % (<5.7)
== END 2023-05-22 11:13 | disposition home or self-care (01) ==
PROVIDERS: PCP Family Medicine; Visit Provider Family Medicine
DX: E03.9 Hypothyroidism, unspecified (principal); I10 Essential (primary) hypertension; E11.9 Type 2 diabetes mellitus without complications
CPT/HCPCS: 36415; 80053; 83036; 84443

== ENCOUNTER 2023-06-13 13:26 | Outpatient (CLI) | payer MEDICARE, SELFPAY ==
--- NOTE | ~2023-06-13 | MM_ITS ---
EXAMINATION: MM screening [facility] [place] BI w saundra HISTORY: Screening mammogram TECHNIQUE: Craniocaudal and mediolateral oblique 3-D tomosynthesis images were obtained and synthetic 2-D images were generated. CAD analysis was submitted and interpreted. COMPARISON: 11/24/2020, 09/05/2020, 07/25/2017 BREAST PARENCHYMAL COMPOSITION: There are scattered areas of fibroglandular density. FINDINGS: No suspicious mass, calcification, or architectural distortion are identified in either sami ast to suggest malignancy. There has been no suspicious interval change. IMPRESSION: 1. No mammographic evidence of malignancy. 2. Recommend routine screening mammography in one year. BI-RADS Category 1: Negative Reviewed, dictated and finalized at location A.
== END 2023-06-13 13:27 | disposition home or self-care (01) ==
LOC: ANHIMG 13:28
PROVIDERS: PCP Family Medicine; Visit Provider Family Medicine
DX: Z12.31 Encounter for screening mammogram for malignant neoplasm of breast (principal)
CPT/HCPCS: 77063; 77067

== ENCOUNTER 2023-06-27 15:20 | Outpatient (CLI) | payer MEDICARE, MEDICAID, SELFPAY ==
--- NOTE | ~2023-06-27 | XR_ITS ---
XR chest 2V DATE: 06/27/2023 15:34 INDICATION: Chronic obstructive pulmonary disease TECHNIQUE: PA and lateral views COMPARISON: 03/27/2023 CT lung screening FINDINGS: Bilateral hyperinflation, relative flattening the diaphragm and evidence of bullous change involving particularly the upper lung zones, consistent with severe emphysema. No pulmonary infiltrate or consolidation, pleural effusion or pulmonary vascular congestion or pneumo thorax is detected. Normal heart size. Diffuse osteopenia. Chronic mild anterior wedge compression fracture deformity of T9. IMPRESSION: Severe emphysema Reviewed, dictated and finalized at location B. IMPRESSION: Severe emphysema
== END 2023-06-27 15:21 | disposition home or self-care (01) ==
PROVIDERS: PCP Family Medicine; Visit Provider Family Medicine
DX: J44.9 Chronic obstructive pulmonary disease, unspecified (principal); J43.9 Emphysema, unspecified
CPT/HCPCS: 71046

== ENCOUNTER 2023-09-19 11:18 | Inpatient (IN) | payer MEDICARE, MEDICAID, SELFPAY ==
[2023-09-19] VITALS (20 sets, daily range): BP systolic 99–133; BP diastolic 62–79; PULSE 65–111; RESP 14–36; TEMP 36.2–36.6; O2SAT 90–99; BMI 28.6
--- NOTE | ~2023-09-19 | XR_ITS ---
Clinical Indication: Pneumonia PA and lateral views of the chest: Comparison: 09/19/2023 Findings: Hazy bibasilar airspace disease again present, right worse than left. Cardiomediastinal ana houette is within normal limits. Bones and soft tissues are unremarkable. Impression: Hazy bibasilar airspace disease, right worse than left. Correlate for pulmonary edema versus infectio n. Probable underlying COPD. Reviewed, dictated and finalized at location . OROLOGICAL EQUIPMENT REPAIRER Impression: Hazy bibasilar airspace disease, right worse than left. Correlate for pulmonary edema versus infection. Probable underlying COPD.
--- NOTE | ~2023-09-19 | XR_ITS ---
XR chest 2V DATE: 09/19/2023 11:58 INDICATION: Shortness of breath TECHNIQUE: PA and lateral views COMPARISON: 06/27/2023 2 view chest 03/27/2023 CT lung screening FINDINGS: There is prominent bullous emphysema. There is patchy infiltrate in the middle and both lower lobes, suggesting bilateral pneumonia. No pleural effusion or pulmonary vascular congestion or pneumothorax is detected. Normal heart size. IMPRESSION: Bilateral pulmonary infiltrates involving both lower lobes and particularly middle lobe. Findings suggest bilateral pneumonia Bullous emphysema Reviewed, dictated and finalized at location B. IFIED WELDER IMPRESSION: Bilateral pulmonary infiltrates involving both lower lobes and part icularly middle lobe. Findings suggest bilateral pneumonia Bullous emphysema
--- NOTE | 2023-09-19 11:29 | ECG_ITS ---
Measurements Intervals [place] Rate: 103 P: 0 [place]: 166 QRS: -58 QRSD: 72 T: 8 QT: 317 QTc: 416 Interpretive Statements SINUS TACHYCARDIA DELAYED PRECORDIAL R/S TRANSITION BASELINE ARTIFACT- I, II, III, AVR, AVL, AVF, V1-V2 BORDERLINE ECG COMPARED TO ECG 12/11/2022 09:17:50 SINUS TACHYCARDIA NOW PRESENT Electronically Signed On 09-19-2023 11:40:36 GROCERY CLERK MARKING by Javier Radford D.O.
[2023-09-19 11:36] LABS: Glucose Point of Care 245 mg/dl (65-105)
[2023-09-19 11:44] LABS: Basophils Absolute Auto 0.1 K/mm3 (0.0-0.1); Basophils Percent Auto 0.4 % (0.2-1.2); Eosinophils Absolute Auto 0.2 K/mm3 (0-0.3); Hematocrit 49.3 % (37.0-47.0); Hemoglobin 15.3 g/dL (12.0-15.0); Immature Granulocyte Absolute 0.17 K/mm3 (0.00-0.031); Lymphocytes Absolute Auto 1.17 K/mm3 (0.9-3.2); Lymphocytes Percent Auto 7.2 % (18.3-44.2); Mean Corpuscular Hemoglobin 28.2 pg (26-34); Mean Platelet Volume 9.2 fl (7.4-10.4); Monocytes Absolute Auto 0.9 K/mm3 (0.1-0.6); Monocytes Percent Auto 5.5 % (2.6-8.5); Neutrophils Absolute Auto 13.8 K/mm3 (1.3-6.7); Neutrophils Percent Auto 84.9 % (45.5-73.1); Platelet Count Result 291 k/mm3 (150-375); Red Blood Count 5.42 M/mm3 (4.2-5.4); Red Cell Distribution Width 14.5 % (11.5-14.5); White Blood Count 16.3 K/mm3 (4.5-10.0)
[2023-09-19 11:53] LABS: Alanine Aminotransferase 59 U/L (6-35); Albumin Level 4.5 g/dL (3.5-5.1); Alkaline Phosphatase 113 U/L (38-126); Anion Gap 11 mmol/L (8-16); Aspartate Amino Transferase 34 U/L (14-36); Bilirubin,Total 0.8 mg/dL (0.2-1.3); Blood Urea Nitrogen 10 mg/dL (7-17); Calcium 9.4 mg/dL (8.4-10.2); Carbon Dioxide 25 mmol/L (22-30); Chloride 98 mmol/L (98-107); Estimated CRCL calculation 141 ml/min; Estimated Glomerular Filt Rate > 60; Glucose 245 mg/dL (65-110); Potassium 4.2 mmol/L (3.4-5.0); Sodium 134 mmol/L (137-145)
--- NOTE | 2023-09-19 12:30 | ED.SOB ---
HPI - SOB/Dyspnea General Chief Complaint: Shortness of Breath/Dyspnea Stated Complaint: sob Time Seen by Provider: 09/19/23 11:58 History of Present Illness HPI Narrative: Patient is a 58-year-old female with a history of COPD on 2 L baseline, diabetes presenting with shortness of breath. Patient states over the last couple of weeks she has had an increasingly frequent and productive cough that is now causing pain when she coughs. She has been feeling short of breath despite using her multiple inhalers. States she has also been having frequent diarrhea and is concerned that she is dehydrated. No fevers, abdominal pain, vomiting, leg swelling, dysuria. Related Data Home Medications Medication Instructions Recorded Confirmed insulin glargine U-300 conc 300 30 unit subcut DAILY 05/22/23 09/19/23 unit/mL (3 mL) subcutaneous pen (Toujeo Max U-300 SoloStar) empagliflozin 25 mg tablet 25 mg PO DAILY 09/19/23 09/19/23 (Jardiance) gabapentin 100 mg capsule 100 mg PO BID 09/19/23 09/19/23 Allergies Allergy/AdvReac Type Severity Reaction Status Date / Time latex Allergy Mild ITCHING Verified 09/11/23 13:24 [id number]-[id number]-KfT Reductase AdvReac Intermediate elevated Verified 09/11/23 13:24 Inhibitor liver enzymes Review of Systems Review of Systems: All systems reviewed & are unremarkable except as noted in HPI and below PMFSH Past Medical History Medical History (Updated 09/19/23 @ 21:21 by Jossy Saenz MD) Asthma Chronic respiratory failure with hypoxia, on home O2 therapy COPD with emphysema Dyslipidemia Gastroesophageal reflux disease Hepatic steatosis Hiatal hernia Recurrent hiatal hernia despite Lora. History of gastric ulcer Hodgkin lymphoma (2014) 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 Tobacco abuse Transient ischemic attack (2009) Type 2 diabetes mellitus Surgical History Surgical History History of appendectomy History of bone marrow biopsy History of cardiac cath History of cardiac catheterization History of hysterectomy with unilateral oophorectomy For cervical dysplasia. History of lymph node biopsy Left anterior cervical chain, resection of the left submandibular gland due to increased uptake on PET scan and pathology was negative. History of Lora fundoplication History of open reduction and internal fixation (ORIF) procedure Repair left 4th finger fracture. History of removal of Port-a-Cath Right chest History of right inguinal hernia repair History of submandibular gland removal Family History Family History Father Diabetes mellitus Hypertension Age older than 80 years Grandparent Lymphoma Other Ovarian cancer Mother Scoliosis Osteoporosis Age greater than 75 years Other Family history of cardiovascular disease Family history of malignant neoplasm Social History Social History (Updated 09/19/23 @ 21:08 by Gely Boland PA-C) Social History: Surrogate medical decision maker: Yamile Brumfield, daughter. Code status: Full code however she would not want to remain on a ventilator for long-term. Smoking packs per day: 1 Smoking cigarettes per day: 20.0 Years smoked: 45 Smoking pack-years: 45.00 Smoking status: Current every day smoker Second hand tobacco smoke exposure: Yes Additional smoking assessment comments: Smokes 1 to 2 packs a day. Alcohol intake: never Substance use: never Substance use type: does not use Do You Feel Safe in your Home?: Yes Lack of Transportation: No Lack of Food: Never True Current Housing: I Have Housing Concerned About Future Housing: No Difficulty Paying Gas/Electric Bills: No Difficulty Paying for Meds: No Currently Unemployed: YES Education: High School Diploma/GED Difficulty w/ Childcare or Family Care: Decline to Answer Living arrangements: alone David
[2023-09-19] MEDS: methylPREDNISolone SOD SUCC 125 MG VIAL IV PUSH (12:44)
[2023-09-19] MEDS: SODIUM CHLORIDE 0.9% IV 1,000 ML 999 ML IV CONT (12:44)
[2023-09-19] MEDS: ALBUTEROL SULFATE NEB 2.5 MG/3 ML INH 10 MG INHALATION (12:47)
[2023-09-19] MEDS: IPRATROPIUM BR 0.02% INH SOLN 0.5 MG/2.5 ML VIAL INHALATION ×2 (12:47→20:39)
[2023-09-19 13:04] LABS: Influenza A QL RT-PCR Negative (Negative); Influenza B QL RT-PCR Negative (Negative); RSV RNA, RT-PCR Negative (Negative); SARS-CoV-2 RNA PCR Negative (Negative)
[2023-09-19] MEDS: cefTRIAXone 2 GM/NS 100 ML 2 GM/100 ML BAG IVPB (13:11)
[2023-09-19] MEDS: AZITHROMYCIN 500 MG/NS 250 ML 500 MG/250 ML BAG 250 MG IVPB (13:52)
--- NOTE | 2023-09-19 17:00 | ADMGEN ---
This patient, Nayeli Og, was admitted to 3 [facility] Surg Room 331-01 @ 1700. Patient/family oriented to hospital policies and general routines including ID bracelet, bed and alarms, visiting hours, pain management, procedures, bathroom and other care routines, personal items, smoking policy, room service/diet, and visiting hours. Information on how to activate the Rapid Response Team has been discussed. Patient/Family are encouraged to report perceived risks to care and to ask questions if they do not understand what they are told or what they should do.
[2023-09-19] MEDS: methylPREDNISolone SOD SUCC 125 MG VIAL 60 MG IV PUSH (20:01)
[2023-09-19] MEDS: ALBUTEROL SULFATE NEB 2.5 MG/3 ML INH INHALATION (20:39)
[2023-09-19 20:47] LABS: Glucose Point of Care 348 mg/dl (65-105)
--- NOTE | 2023-09-19 21:02 | PM.IMHP ---
H&P: HPI History of Present Illness Date/Time: 09/19/23 17:00 Chief Complaint: Shortness of breath. Narrative: This is a 58-year-old female smoker with chronic obstructive pulmonary disease and chronic hypoxia on oxygen, insulin-dependent diabetes, hypothyroidism, and history of Hodgkin lymphoma who presented to the emergency department via private vehicle from home for evaluation of shortness of breath. The patient provides the following history. The last couple of weeks she has been feeling increasingly short of breath from baseline with worsening cough productive of thick sputum, wheezing, and diarrhea. She has been using nebulizers at home with lesser and lesser benefit. She denies fever but endorses sweats. No sinus congestion, sore throat, exertional chest pain, pleuritic pain, orthopnea, nausea, or vomiting. She was afebrile on arrival to the ED. SpO2 has been in the low 90s on 2 L. labs were significant for WBC count of 16.3, hemoglobin 15.3, sodium 134, BUN 10, glucose 245. She tested negative for influenza, RSV, and COVID. Chest x-ray showed evidence of pneumonia and bullous emphysema. She received IV Solu-Medrol, azithromycin 500 mg, ceftriaxone 2 g, and a DuoNeb and she is being admitted in this setting for further treatment. Review of Systems Review of Systems: Twelve systems were reviewed and are negative except for as per HPI. [facility] Past Medical History Medical History (Updated 09/19/23 @ 21:10 by Gely Boland PA-C) Asthma Chronic respiratory failure with hypoxia, on home O2 therapy COPD with emphysema Dyslipidemia Gastroesophageal reflux disease Hepatic steatosis Hiatal hernia Recurrent hiatal hernia despite Lora. History of gastric ulcer Hodgkin lymphoma (2014) 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 Tobacco abuse Transient ischemic attack (2009) Type 2 diabetes mellitus Surgical History Surgical History History of appendectomy History of bone marrow biopsy History of cardiac cath History of cardiac catheterization History of hysterectomy with unilateral oophorectomy For cervical dysplasia. History of lymph node biopsy Left anterior cervical chain, resection of the left submandibular gland due to increased uptake on PET scan and pathology was negative. History of Lora fundoplication History of open reduction and internal fixation (ORIF) procedure Repair left 4th finger fracture. History of removal of Port-a-Cath Right chest History of right inguinal hernia repair History of submandibular gland removal Family History Family History Father Diabetes mellitus Hypertension Age older than 80 years Grandparent Lymphoma Other Ovarian cancer Mother Scoliosis Osteoporosis Age greater than 75 years Other Family history of cardiovascular disease Family history of malignant neoplasm Social History Social History (Updated 09/19/23 @ 21:08 by Gely Boland PA-C) Social History: Surrogate medical decision maker: Yamile Brumfield, daughter. Code status: Full code however she would not want to remain on a ventilator for long-term. Smoking packs per day: 1 Smoking cigarettes per day: 20.0 Years smoked: 45 Smoking pack-years: 45.00 Smoking status: Current every day smoker Second hand tobacco smoke exposure: Yes Additional smoking assessment comments: Smokes 1 to 2 packs a day. Alcohol intake: never Substance use: never Substance use type: does not use Do You Feel Safe in your Home?: Yes Lack of Transportation: No Lack of Food: Never True Current Housing: I Have Housing Concerned About Future Housing: No Difficulty Paying Gas/Electric Bills: No Difficulty Paying for Meds: No Currently Unemployed: YES Education: High School Diploma/GED Difficulty w/ Childcare or Family Care: Decline to Answer Living arrangements: alone Additi
[2023-09-19] MEDS: guaiFENesin 12 HR 600 MG TABCR PO (22:26)
[2023-09-19] MEDS: GABAPENTIN 100 MG CAPSULE PO (22:26)
[2023-09-19] MEDS: INSULIN ASPART (*BKC) 100 UNITS/ML 6 UNITS SUB-Q (22:27)
[2023-09-19] MEDS: OMEGA 3 POLYUNSAT FATTY ACIDS 1 GM CAP 2 GM PO (22:29)
[2023-09-19 23:28] LABS: Glucose Point of Care 290 mg/dl (65-105)
[2023-09-20] VITALS (14 sets, daily range): BP systolic 101–110; BP diastolic 54–72; PULSE 66–80; RESP 18–20; TEMP 35.9–36.4; O2SAT 94–97
[2023-09-20] MEDS: INSULIN ASPART (*BKC) 100 UNITS/ML SUB-Q ×4 (00:02→16:53)
[2023-09-20] MEDS: LEVOTHYROXINE SODIUM 112 MCG TABLET PO (05:33)
[2023-09-20 06:16] LABS: Hematocrit 45.3 % (37.0-47.0); Hemoglobin 14.5 g/dL (12.0-15.0); Mean Corpuscular Hemoglobin 29.1 pg (26-34); Mean Platelet Volume 9.5 fl (7.4-10.4); Platelet Count Result 309 k/mm3 (150-375); Red Blood Count 4.98 M/mm3 (4.2-5.4); Red Cell Distribution Width 14.1 % (11.5-14.5); White Blood Count 14.7 K/mm3 (4.5-10.0)
[2023-09-20 06:34] LABS: Anion Gap 11 mmol/L (8-16); Blood Urea Nitrogen 10 mg/dL (7-17); Calcium 9.2 mg/dL (8.4-10.2); Carbon Dioxide 27 mmol/L (22-30); Chloride 101 mmol/L (98-107); Estimated CRCL calculation 141 ml/min; Estimated Glomerular Filt Rate > 60; Glucose 262 mg/dL (65-110); Magnesium 2.4 mg/dL (1.6-2.3); Sodium 139 mmol/L (137-145)
[2023-09-20] MEDS: ALBUTEROL SULFATE NEB 2.5 MG/3 ML INH INHALATION ×3 (07:31→20:28)
[2023-09-20] MEDS: IPRATROPIUM BR 0.02% INH SOLN 0.5 MG/2.5 ML VIAL INHALATION ×3 (07:31→20:28)
[2023-09-20 08:30] LABS: Glucose Point of Care 259 mg/dl (65-105)
[2023-09-20] MEDS: OMEGA 3 POLYUNSAT FATTY ACIDS 1 GM CAP 2 GM PO ×2 (08:51→21:05)
[2023-09-20] MEDS: ENOXAPARIN 40 MG/0.4 ML SYRINGE SUB-Q (08:51)
[2023-09-20] MEDS: EMPAGLIFLOZIN 25 MG TABLET PO (08:51)
[2023-09-20] MEDS: GABAPENTIN 100 MG CAPSULE PO ×2 (08:51→16:33)
[2023-09-20] MEDS: ACETAMINOPHEN 325 MG TABLET 650 MG PO ×3 (08:51→21:10)
[2023-09-20] MEDS: INSULIN GLARGINE (*BKC) 100 UNITS/ML 30 UNITS SUB-Q (08:53)
[2023-09-20] MEDS: guaiFENesin 12 HR 600 MG TABCR PO ×2 (08:58→21:05)
[2023-09-20 11:35] LABS: Glucose Point of Care 222 mg/dl (65-105)
--- NOTE | 2023-09-20 12:48 | PM.IMPN ---
Progress Note: A&P Assessment and Plan (1) Community acquired pneumonia: Code(s): J18.9 - Pneumonia, unspecified organism Status: Acute Assessment and Plan: Continue Azithromycin and Rocephin Continue Duoneb Q6 hrs Continue Home trelegy. Consider Pulmonology consult as needed. Offered nicotine replacement but she states she is sensitive to the adhesive. Continue to monitor/trend VS and labs. Repeat CXR in 2-3 days. (2) COPD with emphysema: Qualifiers: Emphysema type: unspecified Qualified Code(s): J43.9 - Emphysema, unspecified Code(s): J43.9 - Emphysema, unspecified Status: Acute Assessment and Plan: See Plan for #1 (3) Continuous tobacco abuse: Code(s): Z72.0 - Tobacco use Status: Acute Assessment and Plan: Pt last smoked yesterday. Offered Nicotine patch, but she refused saying she was sensitive to the adhesive. (4) Chronic respiratory failure with hypoxia, on home O2 therapy: Code(s): J96.11 - Chronic respiratory failure with hypoxia; Z99.81 - Dependence on supplemental oxygen Status: Acute Assessment and Plan: On current home doses of supplemental oxygen. Continue to monitor. (5) Type 2 diabetes mellitus: Qualifiers: Diabetes mellitus long wall shear operator insulin use: without long wall shear operator use Diabetes mellitus complication status: without complication Qualified Code(s): E11.9 - Type 2 diabetes mellitus without complications Code(s): E11.9 - Type 2 diabetes mellitus without complications Status: Acute Assessment and Plan: Discontinue oral hypoglycemics for tighter glucose control in hospital Continue Glucose checks AC and HS Continue Lantus 30 units daily Continue SSI for meals and HS Continue diabetic diet. Time Spent With Patient Time with patient: 15 - 25 minutes Subjective Date/time seen: 09/20/23 1115 Interval history: This pleasant 58 year old female pt with COPD related chronic hypoxia on oxygen, insulin-dependent diabetes, hypothyroidism, and history of Hodgkin lymphoma was examined at the bedside in interval assessment after being admitted to the hospital with PNA. She continues to have a cough and feel dyspneic, but is at her baseline oxygenation. She is receiving Duonebs every 6 hours and is also receiving her Trelegy, Azithromycin and Rocephin. She did receive IV steroids in the ER last evening and again this AM as there was concern for COPD component to her symptoms. We are currently holding any further steroids a she appears to be at her baseline. She has no other acute complaints at this time and is receiving all treatments as noted. She is followed by Dr. Santiago in Pulmonology service should any further Pulmonology workup be needed. Review of Systems Review of Systems: All systems reviewed & are unremarkable except as noted in HPI and below Exam Narrative: General: Mildly ill-appearing female in no acute distress. HEENT:??Normocephalic, atraumatic with edentulous and moist oral mucosa. Neck:??Supple. No lymphadenopathy or JVD. Respiratory:?Respirations are nonlabored and she is speaking in full sentences. Lung sounds are diminished throughout with bibasilar rales and a prolonged expiratory phase. Cardiovascular:??Regular rate and rhythm with S1-S2. Gastrointestinal:??Abdomen is soft, nontender, and nondistended with positive bowel sounds. Skin:??Warm and dry.? No rash or lesions on limited exam. Extremities:??No cyanosis, clubbing, or edema. Radial and pedal pulses intact. Neurological:??Alert.? Cranial nerves 2-12 are grossly intact. No gross focal deficits to casual conversation. Psychiatric:??Pleasant and cooperative with normal mood and affect.? Objective Data Vital Signs Vital Signs: Vital Signs - 24 hr 09/19/23 13:54 09/19/23 13:53 09/19/23 14:00 Temperature Pulse Rate 109 H 109 H 111 H Respiratory Rate 28 H 21 H 33 H Blood Pressure 106/62 106/62 121/
[2023-09-20] MEDS: AZITHROMYCIN 500 MG/NS 250 ML 500 MG/250 ML BAG 250 MG IVPB (13:17)
--- NOTE | 2023-09-20 14:40 | ECG_ITS ---
Measurements Intervals [place] Rate: 77 P: 14 [place]: 155 QRS: -30 QRSD: 84 T: 24 QT: 382 QTc: 434 Interpretive Statements SINUS RHYTHM EARLY PRECORDIAL R/S TRANSITION BORDERLINE ECG COMPARED TO ECG 09/19/2023 11:31:38 SINUS RHYTHM NOW PRESENT Electronically Signed On 09-20-2023 15:15:16 PACKING SHED SUPERVISOR by Javier Radford D.O.
[2023-09-20 16:02] LABS: Glucose Point of Care 242 mg/dl (65-105)
[2023-09-20 16:57] LABS: Magnesium 2.2 mg/dL (1.6-2.3)
[2023-09-20 17:06] LABS: Troponin I < 0.012 ng/mL (0.000-0.034)
[2023-09-20 21:59] LABS: Glucose Point of Care 147 mg/dl (65-105)
[2023-09-21] VITALS (18 sets, daily range): BP systolic 111–120; BP diastolic 69–82; PULSE 57–93; RESP 15–20; TEMP 36.2–36.6; O2SAT 93–96
[2023-09-21] MEDS: ALBUTEROL SULFATE NEB 2.5 MG/3 ML INH INHALATION ×4 (02:22→19:55)
[2023-09-21] MEDS: IPRATROPIUM BR 0.02% INH SOLN 0.5 MG/2.5 ML VIAL INHALATION ×4 (02:22→19:55)
[2023-09-21] MEDS: LEVOTHYROXINE SODIUM 112 MCG TABLET PO (05:31)
[2023-09-21 06:16] LABS: Basophils Absolute Auto 0.1 K/mm3 (0.0-0.1); Basophils Percent Auto 0.6 % (0.2-1.2); Eosinophils Percent Auto 0.2 % (0-4.4); Hemoglobin 13.4 g/dL (12.0-15.0); Immature Granulocyte Absolute 0.38 K/mm3 (0.00-0.031); Immature Granulocyte Percent A 3.1 % (0-0.5); Lymphocytes Absolute Auto 2.07 K/mm3 (0.9-3.2); Lymphocytes Percent Auto 16.8 % (18.3-44.2); Mean Corpuscular HGB Conc 31.2 g/dl (32-36); Mean Corpuscular Hemoglobin 28.6 pg (26-34); Mean Corpuscular Volume 91.7 fl (80-100); Mean Platelet Volume 9.4 fl (7.4-10.4); Monocytes Absolute Auto 1.1 K/mm3 (0.1-0.6); Monocytes Percent Auto 9.1 % (2.6-8.5); Neutrophils Absolute Auto 8.6 K/mm3 (1.3-6.7); Neutrophils Percent Auto 70.2 % (45.5-73.1); Platelet Count Result 319 k/mm3 (150-375); Red Blood Count 4.69 M/mm3 (4.2-5.4); Red Cell Distribution Width 14.2 % (11.5-14.5); White Blood Count 12.3 K/mm3 (4.5-10.0)
[2023-09-21 06:42] LABS: Alanine Aminotransferase 43 U/L (6-35); Albumin Level 3.7 g/dL (3.5-5.1); Alkaline Phosphatase 97 U/L (38-126); Anion Gap 8 mmol/L (8-16); Aspartate Amino Transferase 29 U/L (14-36); Bilirubin,Total 0.3 mg/dL (0.2-1.3); Blood Urea Nitrogen 16 mg/dL (7-17); Calcium 8.7 mg/dL (8.4-10.2); Carbon Dioxide 28 mmol/L (22-30); Chloride 103 mmol/L (98-107); Estimated CRCL calculation 116 ml/min; Estimated Glomerular Filt Rate > 60; Glucose 139 mg/dL (65-110); Magnesium 2.2 mg/dL (1.6-2.3); Potassium 3.7 mmol/L (3.4-5.0); Sodium 139 mmol/L (137-145)
[2023-09-21 07:58] LABS: Glucose Point of Care 136 mg/dl (65-105)
[2023-09-21] MEDS: INSULIN GLARGINE (*BKC) 100 UNITS/ML 30 UNITS SUB-Q (08:31)
[2023-09-21] MEDS: ENOXAPARIN 40 MG/0.4 ML SYRINGE SUB-Q (08:32)
[2023-09-21] MEDS: OMEGA 3 POLYUNSAT FATTY ACIDS 1 GM CAP 2 GM PO ×2 (08:32→20:44)
[2023-09-21] MEDS: EMPAGLIFLOZIN 25 MG TABLET PO (08:33)
[2023-09-21] MEDS: guaiFENesin 12 HR 600 MG TABCR PO ×2 (08:33→20:44)
[2023-09-21] MEDS: GABAPENTIN 100 MG CAPSULE PO ×2 (08:33→17:24)
[2023-09-21] MEDS: BENZONATATE 100 MG CAPSULE 200 MG PO ×3 (09:36→17:24)
--- NOTE | 2023-09-21 10:59 | PM.IMPN ---
Progress Note: A&P Assessment and Plan (1) Community acquired pneumonia: Code(s): J18.9 - Pneumonia, unspecified organism Status: Acute Assessment and Plan: Continue Azithromycin and Rocephin Continue Duoneb Q6 hrs Continue Home trelegy. Consider Pulmonology consult as needed. Offered nicotine replacement but she states she is sensitive to the adhesive. Continue to monitor/trend VS and labs. Repeat CXR in 2-3 days. 09/21/23: Stable respiratory state given her current infection. She remains on IV abx. Will repeat 2-view CXR in AM. VSS. (2) COPD with emphysema: Qualifiers: Emphysema type: unspecified Qualified Code(s): J43.9 - Emphysema, unspecified Code(s): J43.9 - Emphysema, unspecified Status: Acute Assessment and Plan: See Plan for #1 (3) Continuous tobacco abuse: Code(s): Z72.0 - Tobacco use Status: Acute Assessment and Plan: Pt last smoked yesterday. Offered Nicotine patch, but she refused saying she was sensitive to the adhesive. (4) Chronic respiratory failure with hypoxia, on home O2 therapy: Code(s): J96.11 - Chronic respiratory failure with hypoxia; Z99.81 - Dependence on supplemental oxygen Status: Acute Assessment and Plan: On current home doses of supplemental oxygen. Continue to monitor. (5) Type 2 diabetes mellitus: Qualifiers: Diabetes mellitus tank terminal gauger insulin use: without tank terminal gauger use Diabetes mellitus complication status: without complication Qualified Code(s): E11.9 - Type 2 diabetes mellitus without complications Code(s): E11.9 - Type 2 diabetes mellitus without complications Status: Acute Assessment and Plan: Discontinue oral hypoglycemics for tighter glucose control in hospital Continue Glucose checks AC and HS Continue Lantus 30 units daily Continue SSI for meals and HS Continue diabetic diet. 09/21/23: Well controlled 130s-140s. Time Spent With Patient Time with patient: 15 - 25 minutes Subjective Date/time seen: 09/21/23 0900 Interval history: This pt was examined at the bedside in interval assessment. She reports generally not feeling well overall but no new complaints. She has stable VS and is at her baseline oxygen need. She denies any CP but states it is painful when she coughs and breathes deeply. She has no overt CP. I was called by RN last night for concern of possible short runs of V-tach. EKG was performed that showed NSR and troponin was negative with a normal Magnesium. She had no further incidences and was asymptomatic of any pain, palpitations or other dyspnea. Review of Systems Review of Systems: All systems reviewed & are unremarkable except as noted in HPI and below Exam Narrative: General: Mildly ill-appearing female in no acute distress. HEENT:??Normocephalic, atraumatic with edentulous and moist oral mucosa. Neck:??Supple. No lymphadenopathy or JVD. Respiratory:?Respirations are nonlabored and she is speaking in full sentences. Lung sounds are diminished throughout with bibasilar rales and a prolonged expiratory phase. Cardiovascular:??Regular rate and rhythm with S1-S2. Gastrointestinal:??Abdomen is soft, nontender, and nondistended with positive bowel sounds. Skin:??Warm and dry.? No rash or lesions on limited exam. Extremities:??No cyanosis, clubbing, or edema. Radial and pedal pulses intact. Neurological:??Alert.? Cranial nerves 2-12 are grossly intact. No gross focal deficits to casual conversation. Psychiatric:??Pleasant and cooperative with normal mood and affect.? Objective Data Vital Signs Vital Signs: Vital Signs - 24 hr 09/20/23 13:58 09/20/23 15:09 09/20/23 12:00 Temperature 96.6 F L Pulse Rate 70 80 74 Respiratory Rate 18 18 Blood Pressure 106/62 Pulse Oximetry 94 Oxygen Delivery Oxygen Flow Rate 09/20/23 16:00 09/20/23 20:30 09/20/23 20:45 Temperature Pulse Rate 72 68 70 Respira
[2023-09-21 11:25] LABS: Glucose Point of Care 158 mg/dl (65-105)
[2023-09-21] MEDS: AZITHROMYCIN 500 MG/NS 250 ML 500 MG/250 ML BAG 250 MG IVPB (12:21)
[2023-09-21 17:04] LABS: Glucose Point of Care 135 mg/dl (65-105)
[2023-09-21 20:38] LABS: Glucose Point of Care 150 mg/dl (65-105)
[2023-09-21] MEDS: ACETAMINOPHEN 325 MG TABLET 650 MG PO (20:43)
[2023-09-22] VITALS (13 sets, daily range): BP systolic 119–125; BP diastolic 60–78; PULSE 53–92; RESP 15–96; TEMP 36.2–36.5; O2SAT 94–99
--- NOTE | 2023-09-22 | ECHO_ITS ---
Patient Info Name: Nayeli Og Age: 58 years : 1965 Gender: Female Ht: 68 in Wt: 188 lbs BSA: 2.04 m2 HR: 87 bpm BP: 120 / 60 mmHg Heart Rhythm: Sinus Rhythm Technical Quality: Fair Exam Date: 09/22/2023 3:36 PM Exam Location: Echo Lab Exam Room: 301 Patient Status: Inpatient Admit Date: 09/21/2023 Staff Ordering Physician: Elsy Clarke Sample Display Preparer: Sarah Garcia RDCS Attending Provider: Elsy Clarke Referring Physician: Tricia LEPE; Exam Type: CA echo doppler color flow Study Info Indications - kaufman Complete two-dimensional, color flow and Doppler transthoracic echocardiogram is performed. Summary 1. Complete two-dimensional, color flow and Doppler transthoracic echocardiogram is performed. 2. Left ventricular chamber dimension is normal. 3. Left ventricular systolic function is normal, estimated at 65-70%. 4. There is mildly increased left ventricular wall thickness. 5. The left ventricular diastolic function is grade I diastolic dysfunction. 6. Right ventricular systolic function is normal. 7. Normal inferior vena cava with >50% collapse upon inspiration consistent with normal right atrial pressure, 3 mmHg. 8. There is trivial pericardial effusion. 9. No significant valvular disease. Left Ventricle Left ventricular chamber dimension is normal. Left ventricular systolic function is normal, estimated at 65-70%. There is mildly increased left ventricular wall thickness. The left ventricular diastolic function is grade I diastolic dysfunction. Right Ventricle Right ventricular chamber dimension is normal. Right ventricular systolic function is normal. Left Atria Left atrial chamber dimension is normal. Right Atria Right atrial chamber dimension is normal. Atrial Septum Intact interatrial septum visualized by color flow imaging. Aortic Valve The aortic valve is not well visualized. There is no aortic valve stenosis. There is no aortic valve regurgitation. Pulmonic Valve The pulmonic valve is not well visualized. Mitral Valve There is trace mitral valve regurgitation. Tricuspid Valve There is trace tricuspid valve regurgitation. Pericardium/Pleural The pericardium appears epicardial fat pad. There is trivial pericardial effusion. Inferior Vena Cava Normal inferior vena cava with >50% collapse upon inspiration consistent with normal right atrial pressure, 3 mmHg. Aorta The aortic root size at the sinus of Valsalva is normal. Left Ventricular Outflow Tract Name Value Normal LVOT 2D LVOT Diameter 2.0 cm LVOT Doppler LVOT Peak Gradient 6 mmHg LVOT Mean Gradient 3 mmHg LVOT VTI 22 cm LVOT VTI/AV VTI Ratio 0.9 LVOT Stroke Volume 70 ml LVOT CO 16.8 l/min LVOT CI 8.2 l/min/m2 Pulmonic Valve Name Value Normal PV Doppler
--- NOTE | 2023-09-22 04:08 | PCRCNOTE ---
Patient did not want to be awakened at 0200 for her updraft treatment. Treatment to resume at 0800, unless patient needs it sooner.
[2023-09-22] MEDS: LEVOTHYROXINE SODIUM 112 MCG TABLET PO (05:52)
[2023-09-22 07:28] LABS: Glucose Point of Care 129 mg/dl (65-105)
[2023-09-22 08:14] LABS: Basophils Percent Auto 0.2 % (0.2-1.2); Eosinophils Absolute Auto 0.1 K/mm3 (0-0.3); Eosinophils Percent Auto 0.9 % (0-4.4); Hemoglobin 14.7 g/dL (12.0-15.0); Immature Granulocyte Absolute 0.58 K/mm3 (0.00-0.031); Immature Granulocyte Percent A 4.8 % (0-0.5); Lymphocytes Absolute Auto 1.51 K/mm3 (0.9-3.2); Lymphocytes Percent Auto 12.6 % (18.3-44.2); Mean Corpuscular HGB Conc 30.6 g/dl (32-36); Mean Corpuscular Hemoglobin 28.1 pg (26-34); Mean Corpuscular Volume 91.6 fl (80-100); Mean Platelet Volume 9.1 fl (7.4-10.4); Monocytes Absolute Auto 1.4 K/mm3 (0.1-0.6); Monocytes Percent Auto 11.4 % (2.6-8.5); Neutrophils Absolute Auto 8.4 K/mm3 (1.3-6.7); Neutrophils Percent Auto 70.1 % (45.5-73.1); Platelet Count Result 350 k/mm3 (150-375); Red Blood Count 5.24 M/mm3 (4.2-5.4); Red Cell Distribution Width 14.2 % (11.5-14.5)
[2023-09-22 08:29] LABS: Alanine Aminotransferase 56 U/L (6-35); Alkaline Phosphatase 98 U/L (38-126); Anion Gap 7 mmol/L (8-16); Aspartate Amino Transferase 45 U/L (14-36); Bilirubin,Total 0.5 mg/dL (0.2-1.3); Blood Urea Nitrogen 12 mg/dL (7-17); Carbon Dioxide 31 mmol/L (22-30); Chloride 100 mmol/L (98-107); Estimated CRCL calculation 115 ml/min; Estimated Glomerular Filt Rate > 60; Glucose 115 mg/dL (65-110); Potassium 3.8 mmol/L (3.4-5.0); Sodium 138 mmol/L (137-145)
[2023-09-22] MEDS: ALBUTEROL SULFATE NEB 2.5 MG/3 ML INH INHALATION (08:30)
[2023-09-22] MEDS: IPRATROPIUM BR 0.02% INH SOLN 0.5 MG/2.5 ML VIAL INHALATION (08:30)
[2023-09-22] MEDS: BENZONATATE 100 MG CAPSULE 200 MG PO ×3 (09:35→17:29)
[2023-09-22] MEDS: EMPAGLIFLOZIN 25 MG TABLET PO (09:36)
[2023-09-22] MEDS: OMEGA 3 POLYUNSAT FATTY ACIDS 1 GM CAP 2 GM PO ×2 (09:36→21:03)
[2023-09-22] MEDS: GABAPENTIN 100 MG CAPSULE PO ×2 (09:36→17:29)
[2023-09-22] MEDS: ENOXAPARIN 40 MG/0.4 ML SYRINGE SUB-Q (09:36)
[2023-09-22] MEDS: INSULIN GLARGINE (*BKC) 100 UNITS/ML 30 UNITS SUB-Q (09:37)
[2023-09-22] MEDS: ACETAMINOPHEN 325 MG TABLET 650 MG PO ×2 (09:47→21:05)
[2023-09-22 11:27] LABS: Glucose Point of Care 121 mg/dl (65-105)
[2023-09-22] MEDS: FLUTICASONE/UMECLIDIN/VILANTER 100-62.5-25 MCG ELLIPTA 1 PUFF INHALATION (12:02)
[2023-09-22] MEDS: AZITHROMYCIN 500 MG/NS 250 ML 500 MG/250 ML BAG 250 MG IVPB (12:32)
[2023-09-22] MEDS: FUROSEMIDE INJ 40 MG/4 ML VIAL IV PUSH (12:33)
--- NOTE | 2023-09-22 12:39 | PM.IMPN ---
Progress Note: A&P Assessment and Plan (1) Community acquired pneumonia: Code(s): J18.9 - Pneumonia, unspecified organism Status: Acute Assessment and Plan: Continue Azithromycin and Rocephin Continue Duoneb Q6 hrs Continue Home trelegy. Consider Pulmonology consult as needed. Offered nicotine replacement but she states she is sensitive to the adhesive. Continue to monitor/trend VS and labs. Repeat CXR in 2-3 days. 09/21/23: Stable respiratory state given her current infection. She remains on IV abx. Will repeat 2-view CXR in AM. VSS. 09/22/23: Continue with current abx. Repeat CXR today still shows airpace abnormalities. Today, I made sure pt was receiving her Trelegy as she apparently was not receiving it from Respiratory. She remains stable on her home levels of oxygen. Based on findings of CXR including possible pulmonary edema, the pt was given a one time dose of Lasix to assess outcome. In addition, ECHO is ordered. If these changes do not improve her overall status, will consult Pulmonology for further recommendations as she is a patient of our local Wealth Management Director office. (2) COPD with emphysema: Qualifiers: Emphysema type: unspecified Qualified Code(s): J43.9 - Emphysema, unspecified Code(s): J43.9 - Emphysema, unspecified Status: Acute Assessment and Plan: See Plan for #1 (3) Continuous tobacco abuse: Code(s): Z72.0 - Tobacco use Status: Acute Assessment and Plan: Pt last smoked yesterday. Offered Nicotine patch, but she refused saying she was sensitive to the adhesive. (4) Chronic respiratory failure with hypoxia, on home O2 therapy: Code(s): J96.11 - Chronic respiratory failure with hypoxia; Z99.81 - Dependence on supplemental oxygen Status: Acute Assessment and Plan: On current home doses of supplemental oxygen. Continue to monitor. (5) Type 2 diabetes mellitus: Qualifiers: Diabetes mellitus distillery supervisor insulin use: without senior care use Diabetes mellitus complication status: without complication Qualified Code(s): E11.9 - Type 2 diabetes mellitus without complications Code(s): E11.9 - Type 2 diabetes mellitus without complications Status: Acute Assessment and Plan: Discontinue oral hypoglycemics for tighter glucose control in hospital Continue Glucose checks AC and HS Continue Lantus 30 units daily Continue SSI for meals and HS Continue diabetic diet. 09/21/23: Well controlled 130s-140s. 09/22/23: This AM fasting glucose is 129. Time Spent With Patient Time with patient: 15 - 25 minutes Subjective Date/time seen: 09/22/23 12:39 Interval history: This pt was examined at the bedside today in interval assessment. She reports that she does not feel well overall and she feels weak. She also notes that she has not received her Trelegy (Breztri) since being here. She has stable VS and at her baseline Oxygen. She is receiving Azithromycin and Rocephin and Repeat CXR this AM shows that there is hazy, bibasilar airspace disease, R>L and suggested correlating for Pulmonary edema vs. infection. Pt is already being treated for infection. Will attempt a one time dose of Lasix to assess response but I am not overly suspicious of pulmonary edema as she appears Euvolemic. In addition will request ECHO. I spoke with nursing who called respiratory to make sure pt receives her Trellegy as it is needed for her breathing. If after these measures, the breathing is not improved, will consider involving pulmonology. Overall, though, she appears to not have any distress. Review of Systems Review of Systems: All systems reviewed & are unremarkable except as noted in HPI and below Exam Narrative: General: Mildly ill-appearing female in no acute distress. HEENT:??Normocephalic, atraumatic with edentulous and moist oral mucosa. Neck:??Supple. No lymphadenopathy or JVD. Respiratory:?Respirations are nonlabo
[2023-09-22] MEDS: IPRATROPIUM 0.5 MG/ALBUTEROL SULFATE 2.5 MG AMPUL.NEB 3 ML INHALATION ×2 (14:01→20:34)
[2023-09-22 14:06] LABS: Mycoplasma IgM Antibody Titer 488 U/mL (<770)
[2023-09-22 14:25] LABS: Toxigenic C. Diff NEGATIVE (NEGATIVE)
[2023-09-22 16:29] LABS: Glucose Point of Care 90 mg/dl (65-105)
[2023-09-22] MEDS: guaiFENesin/DEXTROMETHORPHAN 10 ML UDC PO (17:34)
[2023-09-22 21:31] LABS: Glucose Point of Care 135 mg/dl (65-105)
[2023-09-23 05:27] VITALS: BP 107/70; PULSE 79; RESP 18; TEMP 36.6; O2SAT 98
[2023-09-23] MEDS: LEVOTHYROXINE SODIUM 112 MCG TABLET PO (05:40)
[2023-09-23 07:10] LABS: Basophils Percent Auto 0.3 % (0.2-1.2); Eosinophils Absolute Auto 0.2 K/mm3 (0-0.3); Eosinophils Percent Auto 1.4 % (0-4.4); Hematocrit 46.6 % (37.0-47.0); Hemoglobin 14.5 g/dL (12.0-15.0); Immature Granulocyte Absolute 0.85 K/mm3 (0.00-0.031); Immature Granulocyte Percent A 7.7 % (0-0.5); Lymphocytes Absolute Auto 1.75 K/mm3 (0.9-3.2); Lymphocytes Percent Auto 15.8 % (18.3-44.2); Mean Corpuscular HGB Conc 31.1 g/dl (32-36); Mean Corpuscular Hemoglobin 28.3 pg (26-34); Mean Platelet Volume 9.3 fl (7.4-10.4); Monocytes Absolute Auto 1.2 K/mm3 (0.1-0.6); Monocytes Percent Auto 10.9 % (2.6-8.5); Neutrophils Absolute Auto 7.1 K/mm3 (1.3-6.7); Neutrophils Percent Auto 63.9 % (45.5-73.1); Platelet Count Result 339 k/mm3 (150-375); Red Blood Count 5.12 M/mm3 (4.2-5.4); Red Cell Distribution Width 14.1 % (11.5-14.5); White Blood Count 11.1 K/mm3 (4.5-10.0)
[2023-09-23 07:23] LABS: Alanine Aminotransferase 55 U/L (6-35); Albumin Level 3.9 g/dL (3.5-5.1); Alkaline Phosphatase 96 U/L (38-126); Anion Gap 6 mmol/L (8-16); Aspartate Amino Transferase 38 U/L (14-36); Bilirubin,Total 0.4 mg/dL (0.2-1.3); Blood Urea Nitrogen 13 mg/dL (7-17); Calcium 9.2 mg/dL (8.4-10.2); Carbon Dioxide 32 mmol/L (22-30); Chloride 100 mmol/L (98-107); Estimated CRCL calculation 115 ml/min; Estimated Glomerular Filt Rate > 60; Glucose 146 mg/dL (65-110); Magnesium 2.2 mg/dL (1.6-2.3); Potassium 3.9 mmol/L (3.4-5.0); Sodium 138 mmol/L (137-145)
[2023-09-23 07:53] LABS: Glucose Point of Care 151 mg/dl (65-105)
--- NOTE | 2023-09-23 08:49 | P.DS_ITS ---
DS: Admitting Diagnosis Discharge Date 09/23/23 Admitting Diagnosis Pneumonia COPD Chronic Respiratory Failure with Hypoxia DM2 DS: Discharge Diagnosis Discharge Diagnosis (1) Community acquired pneumonia: Code(s): J18.9 - Pneumonia, unspecified organism Status: Acute Assessment and Plan: * Continue Azithromycin and Rocephin * Continue Duoneb Q6 hrs * Continue Home trelegy. * Consider Pulmonology consult as needed. * Offered nicotine replacement but she states she is sensitive to the adhesive. * Continue to monitor/trend VS and labs. * Repeat CXR in 2-3 days. * 09/21/23: Stable respiratory state given her current infection. She remains on IV abx. Will repeat 2-view CXR in AM. VSS. * 09/22/23: Continue with current abx. Repeat CXR today still shows airpace abnormalities. Today, I made sure pt was receiving her Trelegy as she apparently was not receiving it from Respiratory. She remains stable on her home levels of oxygen. Based on findings of CXR including possible pulmonary edema, the pt was given a one time dose of Lasix to assess outcome. In addition, ECHO is ordered. If these changes do not improve her overall status, will consult Pulmonology for further recommendations as she is a patient of our local [employer] office. * 09/23/23, Date of discharge: Pt is stable with her oxygenation and upon entry into the room is noted to be laying on her abdomen, prone, scrolling on her phone in no acute distress. She received a dose of Lasix yesterday and had good urine output. In addition she had an ECHO performed with results still pending. Overall she states she is feeling better today and feels that she is breathing intervaly better. She has been receiving Trelegy since yesterday AM and she believes that has improved her overall status as well. She is agreeable to Discharge today and will be discharged home with abx, continuation of Breztri and follow up with Pulmonology. (2) COPD with emphysema: Qualifiers: Emphysema type: unspecified Qualified Code(s): J43.9 - Emphysema, unspecified Code(s): J43.9 - Emphysema, unspecified Status: Acute Assessment and Plan: * See Plan for #1 (3) Continuous tobacco abuse: Code(s): Z72.0 - Tobacco use Status: Acute Assessment and Plan: * Pt last smoked yesterday. * Offered Nicotine patch, but she refused saying she was sensitive to the adhesive. (4) Chronic respiratory failure with hypoxia, on home O2 therapy: Code(s): J96.11 - Chronic respiratory failure with hypoxia; Z99.81 - Dependence on supplemental oxygen Status: Acute Assessment and Plan: * On current home doses of supplemental oxygen. * Continue to monitor. * See #1 (5) Type 2 diabetes mellitus: Qualifiers: Diabetes mellitus complication status: without complication Diabetes mellitus long term care social worker insulin use: without skilled nursing use Qualified Code(s): E11.9 - Type 2 diabetes mellitus without complications Code(s): E11.9 - Type 2 diabetes mellitus without complications Status: Acute Assessment and Plan: * Discontinue oral hypoglycemics for tighter glucose control in hospital * Continue Glucose checks AC and HS * Continue Lantus 30 units daily * Continue SSI for meals and HS * Continue diabetic diet. * 09/21/23: Well controlled 130s-140s. * 09/22/23: This AM fasting glucose is 129. * 09/23/23: Pt to discharge to home today on current home doses of medications. Encouraged strict diabetic diet. DS: Summary Hospital Course Reason for hospitalization: Acute on chronic
--- NOTE | 2023-09-23 08:49 | PM.DS ---
DS: Admitting Diagnosis Discharge Date 09/23/23 Admitting Diagnosis Pneumonia COPD Chronic Respiratory Failure with Hypoxia DM2 DS: Discharge Diagnosis Discharge Diagnosis (1) Community acquired pneumonia: Code(s): J18.9 - Pneumonia, unspecified organism Status: Acute Assessment and Plan: Continue Azithromycin and Rocephin Continue Duoneb Q6 hrs Continue Home trelegy. Consider Pulmonology consult as needed. Offered nicotine replacement but she states she is sensitive to the adhesive. Continue to monitor/trend VS and labs. Repeat CXR in 2-3 days. 09/21/23: Stable respiratory state given her current infection. She remains on IV abx. Will repeat 2-view CXR in AM. VSS. 09/22/23: Continue with current abx. Repeat CXR today still shows airpace abnormalities. Today, I made sure pt was receiving her Trelegy as she apparently was not receiving it from Respiratory. She remains stable on her home levels of oxygen. Based on findings of CXR including possible pulmonary edema, the pt was given a one time dose of Lasix to assess outcome. In addition, ECHO is ordered. If these changes do not improve her overall status, will consult Pulmonology for further recommendations as she is a patient of our local Commercial Real Estate Bro[facility] office. 09/23/23, Date of discharge: Pt is stable with her oxygenation and upon entry into the room is noted to be laying on her abdomen, prone, scrolling on her phone in no acute distress. She received a dose of Lasix yesterday and had good urine output. In addition she had an ECHO performed with results still pending. Overall she states she is feeling better today and feels that she is breathing intervaly better. She has been receiving Trelegy since yesterday AM and she believes that has improved her overall status as well. She is agreeable to Discharge today and will be discharged home with abx, continuation of Breztri and follow up with Pulmonology. (2) COPD with emphysema: Qualifiers: Emphysema type: unspecified Qualified Code(s): J43.9 - Emphysema, unspecified Code(s): J43.9 - Emphysema, unspecified Status: Acute Assessment and Plan: See Plan for #1 (3) Continuous tobacco abuse: Code(s): Z72.0 - Tobacco use Status: Acute Assessment and Plan: Pt last smoked yesterday. Offered Nicotine patch, but she refused saying she was sensitive to the adhesive. (4) Chronic respiratory failure with hypoxia, on home O2 therapy: Code(s): J96.11 - Chronic respiratory failure with hypoxia; Z99.81 - Dependence on supplemental oxygen Status: Acute Assessment and Plan: On current home doses of supplemental oxygen. Continue to monitor. See #1 (5) Type 2 diabetes mellitus: Qualifiers: Diabetes mellitus complication status: without complication Diabetes mellitus termite control representative insulin use: without group home use Qualified Code(s): E11.9 - Type 2 diabetes mellitus without complications Code(s): E11.9 - Type 2 diabetes mellitus without complications Status: Acute Assessment and Plan: Discontinue oral hypoglycemics for tighter glucose control in hospital Continue Glucose checks AC and HS Continue Lantus 30 units daily Continue SSI for meals and HS Continue diabetic diet. 09/21/23: Well controlled 130s-140s. 09/22/23: This AM fasting glucose is 129. 09/23/23: Pt to discharge to home today on current home doses of medications. Encouraged strict diabetic diet. DS: Summary Hospital Course Reason for hospitalization: Acute on chronic hypoxic respiratory failure in the setting of acute Pneumonia. Hospital Course: This pleasant 58 year old female pt with PMH of chronic obstructive pulmonary disease and chronic hypoxia on oxygen, insulin-dependent diabetes, hypothyroidism, and history of Hodgkin lymphoma presented to the ER on 09/19/23 and was subsequently admitted to the hospital for bilateral PNA and Acute on chronic hypoxic respirato
[2023-09-23 09:14] VITALS: PULSE 77; RESP 18
[2023-09-23] MEDS: FLUTICASONE/UMECLIDIN/VILANTER 100-62.5-25 MCG ELLIPTA 1 PUFF INHALATION (09:14)
[2023-09-23] MEDS: IPRATROPIUM 0.5 MG/ALBUTEROL SULFATE 2.5 MG AMPUL.NEB 3 ML INHALATION ×2 (09:14→14:13)
[2023-09-23 09:26] VITALS: PULSE 72; RESP 18
[2023-09-23] MEDS: GABAPENTIN 100 MG CAPSULE PO (10:27)
[2023-09-23] MEDS: BENZONATATE 100 MG CAPSULE 200 MG PO ×2 (10:27→13:18)
[2023-09-23] MEDS: OMEGA 3 POLYUNSAT FATTY ACIDS 1 GM CAP 2 GM PO (10:27)
[2023-09-23] MEDS: INSULIN GLARGINE (*BKC) 100 UNITS/ML 30 UNITS SUB-Q (10:28)
[2023-09-23] MEDS: EMPAGLIFLOZIN 25 MG TABLET PO (10:28)
[2023-09-23] MEDS: ENOXAPARIN 40 MG/0.4 ML SYRINGE SUB-Q (10:29)
[2023-09-23 11:48] LABS: Glucose Point of Care 159 mg/dl (65-105)
[2023-09-23] MEDS: AZITHROMYCIN 500 MG/NS 250 ML 500 MG/250 ML BAG 250 MG IVPB (13:16)
[2023-09-23 14:00] VITALS: BP 111/74; PULSE 97; RESP 22; TEMP 35.9; O2SAT 97
[2023-09-23 14:13] VITALS: PULSE 82; RESP 18
[2023-09-23 14:24] VITALS: PULSE 84; RESP 18
[2023-09-23 18:17] LABS: Pneumococcal Antigen Urine Not Detected (Not Detected)
[2023-09-24 01:26] LABS: Legionella pneumophila Ag Ur Not Detected (Not Detected)
== END 2023-09-23 15:25 | disposition home or self-care (01) | DRG 194 ==
LOC: ANHED 12:48 → ANH3MEDSUR 16:31
PROVIDERS: Physician Assistant; Admitting Provider Student in an Organized Health Care Education/Training Program; Emergency Provider Emergency Medicine; PCP Family Medicine; Visit Provider Nurse Practitioner Adult Health
DX: J18.9 Pneumonia, unspecified organism (principal); J96.11 Chronic respiratory failure with hypoxia; J43.9 Emphysema, unspecified; E78.5 Hyperlipidemia, unspecified; K21.9 Gastro-esophageal reflux disease without esophagitis; K44.9 Diaphragmatic hernia without obstruction or gangrene; K76.0 Fatty (change of) liver, not elsewhere classified; E03.9 Hypothyroidism, unspecified; F17.210 Nicotine dependence, cigarettes, uncomplicated; Z20.822 Contact with and (suspected) exposure to COVID-19; Z99.81 Dependence on supplemental oxygen; Z86.73 Personal history of transient ischemic attack (TIA), and cerebral infarction without residual deficits; Z85.72 Personal history of non-Hodgkin lymphomas; Z90.49 Acquired absence of other specified parts of digestive tract; Z90.710 Acquired absence of both cervix and uterus; Z90.721 Acquired absence of ovaries, unilateral
CPT/HCPCS: 36415; 71046; 80048; 80053; 82948; 83735; 84484; 85025; 85027; 86738; 87040; 87070; 87205; 87449; 87493; 87637; 87899; 93005; 93306; 94640; 96365; 96367; 96375; 96376; 99285; A9270; G0378; J0456; J0696; J1650; J1815; J1940; J2930; J7030

== ENCOUNTER 2023-10-10 11:23 | Outpatient (CLI) | payer MEDICARE, MEDICAID, SELFPAY ==
[2023-10-10 11:54] LABS: Hematocrit 47.8 % (37.0-47.0); Hemoglobin 14.9 g/dL (12.0-15.0); Mean Corpuscular HGB Conc 31.2 g/dl (32-36); Mean Corpuscular Hemoglobin 28.2 pg (26-34); Mean Corpuscular Volume 90.5 fl (80-100); Mean Platelet Volume 8.9 fl (7.4-10.4); Platelet Count Result 334 k/mm3 (150-375); Red Blood Count 5.28 M/mm3 (4.2-5.4); Red Cell Distribution Width 14.4 % (11.5-14.5); White Blood Count 7.9 K/mm3 (4.5-10.0)
[2023-10-10 12:05] LABS: Hemoglobin A1C 8.7 % (<5.7)
[2023-10-10 12:16] LABS: Creatinine Urine 68.8 mg/dL
[2023-10-10 12:20] LABS: MALB Creatinine Ratio 21.8 mg/g (0-30)
[2023-10-10 12:29] LABS: Alanine Aminotransferase 59 U/L (6-35); Albumin Level 4.6 g/dL (3.5-5.1); Alkaline Phosphatase 118 U/L (38-126); Anion Gap 7 mmol/L (8-16); Aspartate Amino Transferase 38 U/L (14-36); Bilirubin,Total 0.5 mg/dL (0.2-1.3); Blood Urea Nitrogen 10 mg/dL (7-17); Calcium 9.6 mg/dL (8.4-10.2); Carbon Dioxide 30 mmol/L (22-30); Chloride 101 mmol/L (98-107); Estimated Glomerular Filt Rate > 60; Glucose 136 mg/dL (65-110); Potassium 4.2 mmol/L (3.4-5.0); Sodium 138 mmol/L (137-145)
== END 2023-10-10 11:24 | disposition home or self-care (01) ==
PROVIDERS: PCP Family Medicine; Visit Provider Family Medicine
DX: E03.9 Hypothyroidism, unspecified (principal); E11.22 Type 2 diabetes mellitus with diabetic chronic kidney disease; J44.1 Chronic obstructive pulmonary disease with (acute) exacerbation; J18.9 Pneumonia, unspecified organism; R74.8 Abnormal levels of other serum enzymes
CPT/HCPCS: 36415; 80053; 82043; 83036; 84439; 84443; 85027

== ENCOUNTER 2023-11-25 10:50 | Outpatient (RCR) | payer MEDICARE, SELFPAY ==
[2023-11-25 10:57] VITALS: BMI 28.2
[2023-11-25 12:55] VITALS: BMI 28.2
== END 2024-02-09 09:44 | disposition home or self-care (01) ==
LOC: ANHDMC 10:50
PROVIDERS: PCP Family Medicine; Visit Provider Family Medicine
DX: E11.42 Type 2 diabetes mellitus with diabetic polyneuropathy (principal); E11.22 Type 2 diabetes mellitus with diabetic chronic kidney disease; Z71.3 Dietary counseling and surveillance
CPT/HCPCS: 97802

== ENCOUNTER 2024-04-01 15:21 | Outpatient (CLI) | payer MEDICARE, MEDICAID, SELFPAY ==
--- NOTE | ~2024-04-01 | CT_ITS ---
CT Scan of the Chest without Contrast: Clinical Indication: Lung cancer screening, nicotine dependence Technique: Contiguous sections were acquired throughout the chest without intravenous contrast. Dose reduction technique was used on this scan by utilizing automated exposure control and iterative recon struction technique. The dose-length product (DLP) was 164.68 mGy-cm. COMPARISON: 03/31/2023 Findings: There is no evidence of any significant mediastinal, hilar or axillary lymphadenopathy. Coronary robe ry calcifications are present. Moderate hiatal hernia present. There is no evidence of pleural or pericardial effusion. The lungs are clear. No pulmonary nodules or infiltrates are noted. There is severe emphysema. Images through the upper abdomen reveal probable adrenal adenoma, unchanged. Chronic T9 compression d eformity noted. Impression: Lung RADS 1: Negative. 12 month follow-up screening CT advised. Severe emphysema. Additional findings, as above. Reviewed, dictated and finalized at [facility]. Impression: Lung RADS 1: Negative. 12 month follow-up screening CT advised. Severe emphysema. Additional findings, as above.
== END 2024-04-01 15:22 | disposition home or self-care (01) ==
PROVIDERS: PCP Family Medicine; Visit Provider Internal Medicine Pulmonary Disease
DX: Z12.2 Encounter for screening for malignant neoplasm of respiratory organs (principal); Z87.891 Personal history of nicotine dependence
CPT/HCPCS: 71271

== ENCOUNTER 2024-07-10 09:59 | Outpatient (CLI) | payer MEDICARE, SELFPAY ==
[2024-07-10 10:40] LABS: Alanine Aminotransferase 101 U/L (6-35); Albumin Level 4.8 g/dL (3.5-5.1); Alkaline Phosphatase 116 U/L (38-126); Anion Gap 9 mmol/L (4-12); Aspartate Amino Transferase 93 U/L (14-36); Bilirubin,Total 0.7 mg/dL (0.2-1.3); Blood Urea Nitrogen 15 mg/dL (7-17); Calcium 10.5 mg/dL (8.4-10.2); Carbon Dioxide 33 mmol/L (22-30); Chloride 93 mmol/L (98-107); Estimated Glomerular Filt Rate > 60; Glucose 365 mg/dL (65-110); Potassium 4.7 mmol/L (3.4-5.0); Sodium 135 mmol/L (137-145)
[2024-07-10 11:41] LABS: Hemoglobin A1C 12.3 % (<5.7)
== END 2024-07-10 10:00 | disposition home or self-care (01) ==
PROVIDERS: PCP Family Medicine; Visit Provider Family Medicine
DX: I10 Essential (primary) hypertension (principal); E11.9 Type 2 diabetes mellitus without complications
CPT/HCPCS: 36415; 80053; 83036

== ENCOUNTER 2024-08-28 12:07 | Outpatient (CLI) | payer MEDICARE, MEDICAID, SELFPAY ==
--- NOTE | ~2024-08-28 | CT_ITS ---
EXAMINATION: CT abdomen wo con DATE: 08/28/2024 12:48 INDICATION: Other specified abnormal findings of blood chemistry. TECHNIQUE: Computed tomography (CT) of the abdomen was performed without intravenous contrast. Automa bee exposure control and iterative reconstruction technique were employed. The dose-length product wa s 547.13 mGy-cm. COMPARISON: CT abdomen and pelvis 07/09/2015 FINDINGS: The visualized portions of the lung bases demonstrate emphysema and mild atelectasis. No pl eural effusion. The heart size is normal. No pericardial effusion. There is a small sliding hiatal he rnia. There is diffuse hepatic steatosis. The gallbladder, spleen, pancreas, and right adrenal gland are normal. There is a 1.4 cm mass in left adrenal gland without change in size, likely an adenoma. T he kidneys are normal. There is calcified atherosclerosis of the aorta and many of the other arteries . There is an eccentric fusiform aneurysm of infrarenal aorta measuring 4.0 cm. There are no patholog ically enlarged lymph nodes. There is no free intraperitoneal fluid. There is mild lumbar spondylosis . There is a chronic compression fracture of T9. IMPRESSION: 1. Diffuse hepatic steatosis. 2. Small sliding hernia. 3. Chronic 1.4 cm mass in left adrenal gland, likely an adenoma. 4. 4.0 cm fusiform aneurysm of infrarenal aorta. Reviewed, dictated and finalized at location [facility]
--- OUTSIDE RECORDS SUMMARY | 2024-09-04 18:21 | XMS_ITS | CONTINUITY OF CARE DOCUMENT ---
Author Name karenjuan karenjuan Address Unknown Organization [facility] Address [address] [facility] [address] [place] [address] Phone [phone] Care Team Providers Care Certified Scrub Tech Name Role Phone Wang South MD Unavailable [phone] LOUIE MCCOLLUM MD Unavailable [phone] LOUIE MCCOLLUM MD Unavailable [phone] PROBLEMS Condition Status Date Provider Notes Shortness of breath active Wang South MD COPD active Wang South MD Family History of Hyperlipidemia: active ? Us sonal South MD Hypercholesterolemia active Wang South MD ENCOUNTERS Date Type Provider Location Encounter Diag nosis - In-person encounter Office Visit Wang South MD [place] [facility] HypercholesterolemiaFamily History of Hyperlipidemia:COPDShortness of breath VITAL SIGNS Date Observation Value Provider Body Mass Index (Ratio) 30.10 kg/m2 Lalito South MD blood pressure, diastolic 90 mm[Hg] Da kayla Johanna blood pressure, systolic 134 mm[Hg] Dac ia Johanna oxygen saturation, oximetry 91 % Layla Johanna respiratory rate E&M 18 /min Layla V oss pulse rate 81 /min Layla Johanna weight E&M 198 [lb_av] Layla Johanna height E&M 68 [in_i] Layla Johanna ALLERGIES Allergy Name Onset Date Reaction Criticality Status CODEINE High Criticality active HISTORY OF MEDICATION USE Medication Status Instructions Dates Provider Indications Com ments LIPITOR 80 MG ORAL TABLET active ONE TAB. DAILY Wang South MD PROAIR HFA 108 (90 BASE) MCG/ACT INHALATION AEROSOL SOLUTION active inhale 2 puffs every 6 hours as needed Layla Johanna FOSAMAX 70 MG ORAL TABLET active take once daily Layla Johanna FENOFIBRATE 145 MG ORAL TABLET active take one daily Layla Johanna LEVOTHYROXINE SODIUM 75 MCG ORAL TABLET active take one daily Layla Johanna SOCIAL HISTORY Date Observation Value Provider number of grandchildren Wang South MD U raul South MD social history E&M S moking History: P atient currently smokes every day. P atient has been counseled to quit. Wang South MD smoking/tobacco cess ation, patient education and counseling yes Wang South MD social history reviewed E&M revi ewed - no changes required Wang South MD alcohol use no Layla Spencer number of years as a smoker 36 a Layla Spencer smoking history, total pack/day 1 Layla Spencer cigarette use yes Layla Spencer smoking status Current every day smoker D acсветлана Spencer FAMILY HISTORY Family Member Condition Mother Family History of Ar thritis: Father Family History of Co ronary Artery Disease: Father Family History of Hy perlipidemia: INSURANCE PROVIDERS Payer name Policy type / Coverage type [facility] ID [facility] Medicaid 1 [id number] [place]IC[place] Medicare [id number] ADVANCE DIRECTIVES Name Date DISCUSSED - NO DECISION MADE TREATMENT PLAN Date Name Performer Cardiology New Patie nt:The Patient was reencouraged to stop smoking. Wang South MD Cardiology New Patient:smoking c essation Wang South MD Cardiology New Patient:continue the lipitor Wang South MD Date Name LIPID PANEL WITH REF MADELYN TO DIRECT LDL LIPID PANEL Complete Echo HISTORY OF PROCEDURES Procedure Date Procedure Name Provider Procedure Notes S tatus EKG Wang South MD completed
--- OUTSIDE RECORDS SUMMARY | 2024-09-04 18:21 | XMS_ITS | Encounter Summary ---
Author Organization [facility] Address [address] [address] Care Team Providers Care Golf Cart Attendant Name Role Phone Unavailable Primary Care Provider Unavailabl e Reason for Visit * Reason Onset Date Comments Referral 05/13/2018 Encounter Details Date Type Department Care Team (Late st Contact Info) Description 05/13/2018 Telephone [facility] Pulmonary, Critical Care and Sleep Medicine [address] [place] [address] Mattie Yoon Referral Social History Tobacco Use Types Packs/Day Years Used Date Smoking Tobacco: Never Assessed Sex and Gender Information Value Date Recorded Sex Assigned at Not on file Gender Identity Not on file Sexual Orientation Not on file documented as of this encounter Miscellaneous Notes * Telephone Encounter - Mattie Yoon - 05/13/2018 1:20 PM CDT Contacted pt regarding Referral request from [facility] Referral stated that pt needed to be seen STAT for Lung Infiltrates and COPD.. Pt stated to me that she doesn't want to make an appt with [facility] at this time, because is still trying to find a Pulmonary provider closer to home, in [place], because she doesn't have adequate transportation... Pt stated to me that she will contact office at a later date if she is unable to find a provider... Will send Referral to medical records documented in this encounter Plan of Treatment Not on file documented as of this encounter Visit Diagnoses Not on filedocumented in this encounter
--- OUTSIDE RECORDS SUMMARY | 2024-09-04 18:21 | XMS_ITS | Encounter Summary ---
Author Organization [facility] Address [address] [place] [address] Care Team Providers Care Surgery Nurse Name Role Phone Unavailable Primary Care Provider Unavailabl e Encounter Details Date Type Department Care Team (Late st Contact Info) Description 10/18/2015 Lab Requisition [facility] - Lab Cytogenetics [address] [place] [address] Grover Tam MD [address] [place] [id number] Social History Tobacco Use Types Packs/Day Years Used Date Smoking Tobacco: Never Assessed Sex and Gender Information Value Date Recorded Sex Assigned at Not on file Gender Identity Not on file Sexual Orientation Not on file documented as of this encounter Plan of Treatment Not on file documented as of this encounter Procedures Procedure Name Priority Date/Time Associated Diagnosis Comments CYTOGENETICS CANCER PANEL Routine 10/18/2015 12:00 AM CLOTH CLASSER documented in this encounter Results * CYTOGENETICS CANCER PANEL (10/18/2015 12:00 AM CLOTH CLASSER) Indication for Study Hx of Hodgkin's Disease / Anemia / Thrombocytosis 6 6:45 AM [facility] CYTOGENOMIC [facility] Results Cytogenetics Analysis of 20 cells (8 cells karyotyped, GTL-banding) from 24-hour unstimulated bone marrow cultures showed the following chromosome pattern: 46,XX[20] 6 6:45 AM [facility] CYTOGENOMIC [facility] Interpretation Female chromosome analysis showing 46,XX with no evidence for any clonal structural or numerical abnormality in all cells examined at 400 average band resolution. 6 6:45 AM [facility] CYTOGENOMIC [facility] Historical Cytogenomic Report [id number] on 06/27/15 Results ?? Analysis and count of 20 cells (8 cells karyotyped, GTL-banding) from 24-hour unstimulated and 72-hour Interleukin stimulated bone marrow cultures showed the following chromosome pattern: 46,XX[20] Fluorescence In-Situ Hybridization (FISH): Analysis of 200 interphase cells hybridized with specific labeled fluorescent probes*: dual labeled probes* [id number]/[id number] directed onto 7 cent/7q31 showed the following results: nuc mandi (D7Z1,[id number])x2[194/ 200] Normal Note: The remaining percentage of cells have signals that either represent G1 cells or endoreduplicated cells of no significance. ?? . ?? Interpretation ?? Female chromosome analysis showing 46,XX with no evidence for any clonal structural or numerical abnormality in all cells examined at 400 average band resolution. One cell had either a deletion of 7q or a broken 7q. To determine if this is significant or clonal, FISH of [id number] was performed on 200 interphase cells on the same slide where this non-clonal metaphase was found. FISH was negative indicating non clonality. Clinicopathological correlation is suggested. ?? at 1108 ?? . 6 6:45 AM [facility] CYTOGENOMIC LAB Client Information [facility] - 6 6:45 AM [facility] CYTOGENOMIC LAB Other BONE MARROW SPECIMEN / Unknown 10/18/2015 10/18/2015 3:25 PM CLOTH CLASSER Grover Tam MD LAB - PATHOLOGY/CY TOLOGY ORDERABLES [facility] MOLECULAR CYTOGENOMIC LAB [facility] [place] [address] documented in this encounter Visit Diagnoses Not on filedocumented in this encounter
--- OUTSIDE RECORDS SUMMARY | 2024-09-04 18:21 | XMS_ITS | Patient Health Summary ---
Author Organization [facility] [employer] Address [address] [place] [address] Care Team Providers Care Fruit Sorter Name Role Phone Unavailable Primary Care Provider Unavailabl e Note from [facility] [employer],non-owned Affiliates and Associated Physician Practices is amultiple site organization consisting of ambulatory clinics and hospital sitesin [place], [place], [place] and [place]. This disclosure is being madepursuant to the Care Everywhere program and may not contain all information available regarding this patient. Last updated 18.[facility] [employer] Social History Tobacco Use Types Packs/Day Years Used Date Smoking Tobacco: Never Assessed Sex and Gender Information Value Date Recorded Sex Assigned at Not on file Gender Identity Not on file Sexual Orientation Not on file Last Filed Vital Signs Vital Sign Reading Time Taken Comments Blood Pressure 114/72 09/05/2015 10:19 AM OIL DISTRIBUTOR Pulse 101 09/05/2015 10:19 AM OIL DISTRIBUTOR Temperature 36.7 ??C (98.1 ??F) 09/05/2015 10:[address] Respiratory Rate 18 09/05/2015 10:19 AM OIL DISTRIBUTOR Oxygen Saturation 93% 09/05/2015 10:19 AM OIL DISTRIBUTOR Inhaled Oxygen Concentration - - Weight 83.5 kg (184 lb) 09/05/2015 10:19 AM OIL DISTRIBUTOR Height 172.7 cm (5' 8 ) 08/28/2015 9:15 AM OIL DISTRIBUTOR Body Mass Index 27.98 08/28/2015 9:15 AM OIL DISTRIBUTOR Procedures * CYTOGENETICS CANCER PANEL(Performed 10/18/2015) * COMPLETE PFT W/WO BRONCHODILATOR(Performed 08/31/2015) * BLOOD GASES ART - PFT(Performed 08/30/2015) * VITAMIN B12(Performed 08/30/2015) * VITAMIN B6(Performed 08/30/2015) * LAB HISTORICAL RESULTS-ONBASE(Performed 08/30/2015) * PULSE OX EXERCISE - POCT (AMB) [facility](Performed 08/28/2015) * CYTOGENETICS CANCER PANEL(Performed 06/19/2015) Performed for Hodgkin lymphoma Results * CYTOGENETICS CANCER PANEL (10/18/2015 12:00 AM [facility]) Only the most recent of2 resultswithin the time period is included. Indication for Study Hx of Hodgkin's Disease / Anemia / Thrombocytosis 6 6:45 AM [facility] CYTOGENOMIC LAB Results Cytogenetics Analysis of 20 cells (8 cells karyotyped, GTL-banding) from 24-hour unstimulated bone marrow cultures showed the following chromosome pattern: 46,XX[20] 6 6:45 AM [facility] CYTOGENOMIC LAB Interpretation Female chromosome analysis showing 46,XX with no evidence for any clonal structural or numerical abnormality in all cells examined at 400 average band resolution. 6 6:45 AM [facility] CYTOGENOMIC LAB Historical Cytogenomic Report [id number] on 06/27/15 Results ?? Analysis and count of 20 cells (8 cells karyotyped, GTL-banding) from 24-hour unstimulated and 72-hour Interleukin stimulated bone marrow cultures showed the following chromosome pattern: 46,XX[20] Fluorescence In-Situ Hybridization (FISH): Analysis of 200 interphase cells hybridized with specific labeled fluorescent probes*: dual labeled probes* CEP7/H2O135 directed onto 7 cent/7q31 showed the following results: nuc mandi (D7Z1,I4C154)x2[194/ 200] Normal Note: The remaining percentage of [...] this is significant or clonal, FISH of Q5H696/CEP7 was performed on 200 interphase cells on the same slide where this non-clonal metaphase was found. FISH was negative indicating non clonality. Clinicopathological correlation is suggested. ?? at 1108 ?? . 6 6:45 AM [facility] CYTOGENOMIC LAB Client Information [facility] - 6 6:45 AM [facility] CYTOGENOMIC LAB Other BONE MARROW SPECIMEN / Unknown 10/18/2015 10/18/2015 3:25 PM OIL DISTRIBUTOR Grover Tam MD LAB - PATHOLOGY/CY TOLOGY ORDERABLES [facility] MOLECULAR CYTOGENOMIC LAB [address] [place] [address] * COMPLETE PFT W/WO BRONCHODILATOR (08/31/2015 10:47 AM OIL DISTRIBUTOR) Impressions [facility] - 08/31/2015 10:47 AM OIL DISTRIBUTOR [facility] DEPARTMENT OF PULMONARY, CRITICAL CARE, AND SLEEP MEDICINE PULMONARY FUNCTION TESTS Nayeli Og 08/30/2015 INTERPRETATION Please see technologist's comments mentioned above. SPIROMETRY: Forced vital capacity is normal. ??FEV1 is normal. FEV1/FVC ratio is decreased. There is no significant response to bronchodilator therapy. The inspection of the patient's flow-volume loops shows normal configuration of the inspiratory and expiratory limbs. LUNG VOLUMES: Lung volumes by body plethysmography are within normal limits. DLCO: Diffusing capacity adjusted for Hb and COHb is mildly decreased. AIRWAY RESISTANCE: The airway resistance and the specific conductance are normal. ARTERIAL BLOOD GAS ANALYSIS: ABG drawn on RA revealed moderate hypoxemia and an elevated carboxyhemoglobin level. ??There was a normal acid-base balance. IMPRESSION: 1. Mild obstructive ventilatory limitation. 2. There is no significant response to bronchodilator therapy. This does not preclude the use of bronchodilator therapy if clinically indicated. 3. Mild reduction in diffusion capacity adjusted for hemoglobin and carboxyhemoglobin. ?? 4. Moderate hypoxemia on room air with PaO2=57 and SpO2=85%. 5. Elevated carboxyhemoglobin level suggestive of active smoking. 6. There is no previous study available for comparison. Luiz Cash MD Narrative Procedure Note Provider, MD Fermin - 02/13/2018 IMPRESSION [facility] DEPARTMENT OF PULMONARY, CRITICAL CARE, AND SLEEP MEDICINE PULMONARY FUNCTION TESTS Nayeli Og 08/30/2015 INTERPRETATION Please see technologist's comments mentioned above. SPIROMETRY: Forced vital capacity is normal. FEV1 is normal. FEV1/FVC ratio is decreased. There is no significant response to bronchodilator therapy. The inspection of the patient's flow-volume loops shows normal configuration of the inspiratory and expiratory limbs. LUNG VOLUMES: Lung volumes by body plethysmography are within normal limits. DLCO: Diffusing capacity adjusted for Hb and COHb is mildly decreased. AIRWAY RESISTANCE: The airway resistance and the specific conductance are normal. ARTERIAL BLOOD GAS ANALYSIS: ABG drawn on RA revealed moderate hypoxemia and an elevated carboxyhemoglobin level. There was a normal acid-base balance. IMPRESSION: 1. Mild obstructive ventilatory limitation. 2. There is no significant response to bronchodilator therapy. This does not preclude the use of bronchodilator therapy if clinically indicated. 3. Mild reduction in diffusion capacity adjusted for hemoglobin and carboxyhemoglobin. 4. Moderate hypoxemia on room air with PaO2=57 and SpO2=85%. 5. Elevated carboxyhemoglobin level suggestive of active smoking. 6. There is no previous study available for comparison. Luiz Cash MD Amandeep Yadav MD RESPIRATORY THERAPY ORDERABLES [facility] * (ABNORMAL) BLOOD GASES ART - PFT (08/30/2015 4:07 PM OIL DISTRIBUTOR) pH Arterial 7.41 7.35 - 7.45 [facility] pCO2 Arterial 38 35 - 45 mmHg [facility] pO2 Arterial 57(L) 77 - 101 mmHg [facility] HCO3 Arterial 23.6 22.0 - 26.0 mmol/L [facility] TCO2 Arterial 24.8(L) 25.0 - 29.0 mmol/L [facility] Base Excess Arterial -0.3 -2.0 - 2.0 mmol/L [facility] Hemoglobin Arterial 9.7(L) 12.0 - 15.5 g/dL [facility] Oxyhemoglobin Arterial 84.8(L) 95.0 - 100.0 % [facility] Carboxyhemoglobin 7.2(H) 0.0 - 3.0 % [facility] Methemoglobin 0.7 0.0 - 2.0 % [facility] FI O2 Arterial 21.0 % [facility] Blood specimen (specimen) ARTERY SPECIMEN / Unknown 08/30/2015 4:07 PM OIL DISTRIBUTOR 08/30/2015 4:08 PM OIL DISTRIBUTOR Narrative [facility] - 08/30/2015 4:08 PM OIL DISTRIBUTOR Room Air (21%)->Yes FiO2->21 Amandeep Yadav MD LAB - BLOOD GASES OR DERABLES [facility] [address] [phone] * VITAMIN B6 (08/30/2015 2:44 PM OIL DISTRIBUTOR) Vitamin B6 3.5 2.0 - 32.8 ug/L [facility] ([facility]) 08/30/2015 2:44 PM OIL DISTRIBUTOR 08/30/2015 6:05 PM OIL DISTRIBUTOR Narrative [facility] ([facility]) - 09/05/2015 4:18 PM OIL DISTRIBUTOR Performed at: ??01 - [facility] [address] ??[id number] Instructor Flying: Cory Ross MD, Phone: ??[phone] Betito Jacinto MD LAB - CHEMISTRY OR DERABLES Performing Organization Address [facility] Co de Phone Number [facility] * VITAMIN B12 (08/30/2015 2:44 PM OIL DISTRIBUTOR) Vitamin B12 386 211 - 946 pg/mL [facility] ([facility]) 08/30/2015 2:44 PM OIL DISTRIBUTOR 08/30/2015 6:05 PM OIL DISTRIBUTOR Narrative [facility] ([facility]) - 09/05/2015 4:18 PM OIL DISTRIBUTOR Performed at: ??02 - [facility] [address] ??[id number] Instructor Flying: Khris Kumari PhD, Phone: ??[phone] Betito Jacinto MD LAB - CHEMISTRY OR DERABLES Performing Organization Address City/[facility]/ZIP Co de Phone Number [facility] ([place]) * LAB HISTORICAL RESULTS-ONBASE (08/30/2015) 08/30/2015 Narrative [facility] - 10/03/2015 7:57 AM OIL DISTRIBUTOR Historical Provider LAB - CHEMISTRY O RDERABLES Performing Organization Address City/[facility]/ZIP Co de Phone Number [facility] [address] [place] [address], [facility] * PULSE OX EXERCISE - POCT (AMB) [facility] (08/28/2015) Impressions [facility] - 08/28/2015 12:00 AM OIL DISTRIBUTOR No significant desaturation with walking on RA. Narrative Procedure Note Provider, Historical, - 02/13/2018 IMPRESSION No significant desaturation with walking on RA. Amandeep Yadav MD LAB - POINT OF CARE ORDERABLES Performing Organization Address City/[facility]/ZIP Co de Phone Number [facility]
--- OUTSIDE RECORDS SUMMARY | 2024-09-04 18:21 | XMS_ITS | Referral Summary ---
Author Organization [facility] [employer] Address [address] [place] [address] Care Team Providers Care Suction Plate Carrier Cleaner Name Role Phone Unavailable Primary Care Provider Unavailabl e Source Comments [facility] [employer],non-owned Affiliates and Associated Physician Practices is amultiple site organization consisting of ambulatory clinics and hospital sitesin [place], [place], [place] and [place]. This disclosure is being madepursuant to the Care Everywhere program and may not contain all information available regarding this patient. Last updated 18.[facility] [employer] Social History Tobacco Use Types Packs/Day Years Used Date Smoking Tobacco: Never Assessed Sex and Gender Information Value Date Recorded Sex Assigned at Not on file Gender Identity Not on file Sexual Orientation Not on file Last Filed Vital Signs Vital Sign Reading Time Taken Comments Blood Pressure 114/72 09/05/2015 10:19 AM JALOUSIES INSTALLER Pulse 101 09/05/2015 10:19 AM JALOUSIES INSTALLER Temperature 36.7 ??C (98.1 ??F) 09/05/2015 10:[address] Respiratory Rate 18 09/05/2015 10:19 AM JALOUSIES INSTALLER Oxygen Saturation 93% 09/05/2015 10:19 AM JALOUSIES INSTALLER Inhaled Oxygen Concentration - - Weight 83.5 kg (184 lb) 09/05/2015 10:19 AM JALOUSIES INSTALLER Height 172.7 cm (5' 8 ) 08/28/2015 9:15 AM JALOUSIES INSTALLER Body Mass Index 27.98 08/28/2015 9:15 AM JALOUSIES INSTALLER Plan of Treatment Not on file
--- OUTSIDE RECORDS SUMMARY | 2024-09-04 18:21 | XMS_ITS | Clinical Summary ---
Author Organization [facility] [employer] Address [address] [place] [address] Care Team Providers Care University Relations Director Name Role Phone Unavailable Primary Care Provider Unavailabl e Source Comments [facility] [employer],non-owned Affiliates and Associated Physician Practices is amultiple site organization consisting of ambulatory clinics and hospital sitesin [place], [place], [place] and [place]. This disclosure is being madepursuant to the Care Everywhere program and may not contain all information available regarding this patient. Last updated 18.[facility] [employer] Social History Tobacco Use Types Packs/Day Years Used Date Smoking Tobacco: Never Assessed Sex and Gender Information Value Date Recorded Sex Assigned at Not on file Gender Identity Not on file Sexual Orientation Not on file Last Filed Vital Signs Vital Sign Reading Time Taken Comments Blood Pressure 114/72 09/05/2015 10:19 AM ACCOUNT CONSULTANT Pulse 101 09/05/2015 10:19 AM ACCOUNT CONSULTANT Temperature 36.7 ??C (98.1 ??F) 09/05/2015 10:[address] Respiratory Rate 18 09/05/2015 10:19 AM ACCOUNT CONSULTANT Oxygen Saturation 93% 09/05/2015 10:19 AM ACCOUNT CONSULTANT Inhaled Oxygen Concentration - - Weight 83.5 kg (184 lb) 09/05/2015 10:19 AM ACCOUNT CONSULTANT Height 172.7 cm (5' 8 ) 08/28/2015 9:15 AM ACCOUNT CONSULTANT Body Mass Index 27.98 08/28/2015 9:15 AM ACCOUNT CONSULTANT Plan of Treatment Health Maintenance Due Date Last Done Comments COLOGUARD (AGES 45-75) - COL ON CA SCREENING 1964 COLON MONITORING 1964 COLONOSCOPY - COLON CA SCREENING 1964 CT COLONOGRAPHY - COLON CA SCREENING 1964 Colorectal Cancer Screening 1964 FIT - COLON CA SCREENING 1964 FLEX SIG - COLON CA SCREENING 1964 LIPID TESTING 1964 MAMMOGRAM 1964 PAP SMEAR 1964 HIV SCREENING 1979 HEPATITIS C SCREENING 05/13/1982 DTAP/TDAP/TD VACCINES (1 - Tdap) 1983 ZOSTER VACCINE (1 of 2) 2014 DEPRESSION SCREENING 09/08/2023 COVID-19 VACCINE (1 - 2023-2 5 season) 2024 INFLUENZA VACCINE (#1) 2024 08/28/2015 Respiratory Syncytial Virus (RSV) Vaccine Pt: or over 60 yrs (1 - 1-dose 75+ series) 2039 HEPATITIS B VACCINE Aged Out No longe r eligible based on patient's age to complete this topic HIB VACCINE Aged Out No longer eligi ble based on patient's age to complete this topic HPV VACCINE Aged Out No longer eligi ble based on patient's age to complete this topic MENINGOCOCCAL VACCINE Aged Out No arian katina eligible based on patient's age to complete this topic PNEUMOCOCCAL VACCINE Aged Out No long er eligible based on patient's age to complete this topic
--- OUTSIDE RECORDS SUMMARY | 2024-09-04 18:22 | XMS_ITS | Encounter Summary ---
Author Organization [facility] Address [address] [place] [address] Care Team Providers Care Stockroom Coordinator Name Role Phone Unavailable Primary Care Provider Unavailabl e Encounter Details Date Type Department Care Team (Late st Contact Info) Description 06/19/2015 Lab Requisition [facility] - Lab Cytogenetics [address] [place] [address] Piter Ponce [address] [place] [address] Hodgkin lymphoma (HCC) Social History Tobacco Use Types Packs/Day Years [...] Associated Diagnosis Comments CYTOGENETICS CANCER PANEL Routine 06/19/2015 12:00 AM CDT Hodgkin lymphoma documented in this encounter Results * CYTOGENETICS CANCER PANEL (06/19/2015 12:00 AM CDT) Indication for Study Hodgkin's Disease Staging / Anemia 11:08 AM CDT [facility] MOLECULAR CYTOGENOMIC LAB Results Cytogenetics Analysis and count of 20 cells (8 cells karyotyped, GTL-banding) from 24-hour unstimulated and 72-hour Interleukin stimulated bone marrow cultures showed the following chromosome pattern: 46,XX[20] Fluorescence In-Situ Hybridization (FISH): Analysis of 200 interphase cells hybridized with specific labeled fluorescent probes*: dual labeled probes* [id number]/[id number] directed onto 7 cent/7q31 showed the following results: nuc mandi (D7Z1,H6F063)x2[194/ 200] Normal Note: The remaining percentage of cells have signals that either represent G1 cells or endoreduplicated cells of no significance. 5 11:08 AM [facility] CYTOGENOMIC LAB Interpretation Female chromosome analysis showing 46,XX with no evidence for any clonal structural or numerical abnormality in all cells examined at 400 average band resolution. One cell had either a deletion of 7q or a broken 7q. To determine if this is significant or clonal, FISH of [id number] was performed on 200 interphase cells on the same slide where this non-clonal metaphase was found. FISH was negative indicating non clonality. Clinicopathological correlation is suggested. 5 11:08 AM [facility] CYTOGENOMIC LAB Disclaimer *This test was developed, and its performance characteristics determined by [facility]ogenetics [facility] as required by CLIA '88 Regulations. It has not been cleared or approved for specific uses by the U.S. Food and Drug Administration. The FDA has determined that such clearance or approval is not necessary. This test is used for clinical purposes. It should not be reported as investigational or for research. --------- Notes for FISH probes: 1- At the pretreatment level, the cutoff values for trisomy is 1%, dual breakapart is 3 to 5%, double fusion is 1%, and monosomy/deletion is 5 to 8% for no FFPE specimen and 20% for FFPE specimen. ??Efficiency of the probe intensity was acceptable overall. 2- At the post-treatment level, any identified percentage found below the pretreatment cutoff values could not be interpreted unequivocally and needs to be correlated with clinicopathological and clinical findings. At the post treatment level, a low percentage could either represent an actual minimal residual disease or an actual nature of normal cell division. 3- Cutoff values are combined for all different probes forming a range of percentages which covers low/high ends of each probe that fluctuate due to environmental conditions. Percentages that are close to the cutoff values have to be interpreted in correlation with clinicopathological and clinical findings. 4- An additional validation is performed by correlating pathology with cytogenetic findings. 5 11:08 AM CDT [facility] MO[facility] CYTOGENOMIC LAB Client Information [facility] - 5 11:08 AM CDT [facility] MO[facility] CYTOGENOMIC LAB Other BONE MARROW SPECIMEN / Unknown 06/19/2015 06/19/2015 3:05 PM CDT Piter Ponce LAB - PATHOLOGY/CYTO LOGY ORDERABLES Performing Organization Address City/State/[facility] Co de Phone Number [facility] MO[facility] CYTOGENOMIC LAB [address] [place] [address] documented in this encounter Visit Diagnoses Diagnosis Hodgkin lymphoma (HCC) Hodgkin's disease, unspecified documented in this encounter
--- OUTSIDE RECORDS SUMMARY | 2024-09-04 18:22 | XMS_ITS | Encounter Summary ---
Author Organization [facility] Address [facility] [place] [address] [place] [address] Care Team Providers Care Surveyor Hydrographic Name Role Phone Candice Lynch MD Primary Care Provider Unavailable Biju Whyte MD Primary Care Provider [phone] Encounter Details Date Type Department Care Team (Latest Contact Info) Description 08/19/2017 Abstract [facility] Medical Group Social History Tobacco Use Types Packs/Day Years Used Date Smoking Tobacco: Never Assessed Comments Unknown Sex and Gender Information Value Date Recorded Sex Assigned at Not on file Legal Sex Female 8:02 PM CDT Gender Identity Not on file Sexual Orientation Not on file documented as of this encounter Plan of Treatment Not on file documented as of this encounter Visit Diagnoses Not on filedocumented in this encounter Care Teams Surveyor Hydrographic Relationship Specialty Start Date End Date Candice Lynch MD PCP - General 01/08/13 8 Biju Whyte MD [address] [facility] [address] [place] [address] PCP - General FAMILY PRACTICE 10/10/17 documented as of this encounter
--- OUTSIDE RECORDS SUMMARY | 2024-09-04 18:22 | XMS_ITS | Encounter Summary ---
Author Organization [facility] Address [facility] [place] [address] [place] [address] Care Team Providers Care Computer Forwarding System Markup Clerk Name Role Phone Biju Whyte MD Primary Care Provider [phone] Encounter Details Date Type Department Care Team (Latest Contact Info) Description 11/05/2022 Travel Social History Tobacco Use Types Packs/Day Years Used Date Smoking Tobacco: Every Day Cigarettes Smokeless Tobacco: Never Alcohol Use Standard Drinks/Week Comments Not Currently 0 (1 standard drink = 0.6 oz pur e alcohol) Comments No Sex and Gender Information Value Date Recorded Sex Assigned at Not on file Legal Sex Female 8:02 PM CDT Gender Identity Not on file Sexual Orientation Not on file COVID-19 Exposure Response Date Recorded In the last 10 days, have yo u been in contact with someone who was confirmed or suspected to have Coronavirus/COVID-19? No / Unsure 11/05/2022 9:53 AM SWITCH TECHNICIAN documented as of this encounter Plan of Treatment Not on file documented as of this encounter Visit Diagnoses Not on filedocumented in this encounter Care Teams Computer Forwarding System Markup Clerk Relationship Specialty Start Date End Date Biju Whyte MD [address] [facility] [address] [place] [address] PCP - General FAMILY PRACTICE 10/10/17 documented as of this encounter
--- OUTSIDE RECORDS SUMMARY | 2024-09-04 18:22 | XMS_ITS | Encounter Summary ---
Author Organization [facility] Address [facility]6 [facility] [place] [address] [place] [address] Care Team Providers Care Inspector Integrated Circuits Name Role Phone Biju Whyte MD Primary Care Provider [phone] Reason for Visit * Auth/Cert (Routine) Specialty Diagnoses / Procedures Referred By Contyoko t Referred To Contact Diagnoses Hx of polyps Procedures COLONOSCOPY Betito Casillas, DO #[address] [facility] [address] [place] [address] Phone: tel: fax: Referral ID Status Reason Start Date Expiration Date Visits Re quested Visits Authorized [id number] 1 1 Encounter Details Date Type Department Care Team (Late st Contact Info) Description 11/05/2022 12:13 PM MANAGER SOFTWARE Anesthesia Event [facility] [place] [address] Hector Head MD [address] [facility] [id number] [place] [address] [phone] (Work) Anesthesia Record Procedure Summary Procedure Name Responsible Anesthesiologist Anesthesia Start Time Anesthesia Stop Time COLONOSCOPY WITH SIGMOID POLYPECTOMY VIA JUMBO COLD FORCEPS Hector Head MD 11/05/22 1213 11/05/22 1302 Events Date Time Event Comment 11/05/2022 1131 1209 AN PAPER GLUING OPERATOR Prepped 1213 An Start Patient ID and consent checked and patient reassessed. 1214 An Start Data 1215 Preoxygenation 1215 Nasal Cannula Applied 1216 Anesthesia Ready 1222 An Induction The patient was reevaluated immediately before moderate or deep sedation use and before anesthesia induction. 1259 An Emergence 1301 an stop data 1302 Post Anesthetic Care Handoff I completed my handoff to the receiving nurse during which we: 1. Identified the patient 2. Identified the responsible provider 3. Reviewed the pertinent medical history 4. Discussed the surgical course 5. Reviewed intra-op anesthesia management and issues during anesthesia 6. Set expectations for post-procedure period 7. Allowed opportunity for questions and acknowledgement of understanding. 1302 An Stop Meds Name Total lidocaine (PF) (XYLOCAINE) 2% injection 100 mg propofol (DIPRIVAN) 200 mg/20 mL injecti on 450 mg phenylephrine (TOMÁS-SYNEPHRINE) injection 100 mcg lactated ringers infusion 700 mL * Agents Name O2 Air Ancillary O2 * Blood No blood administrations on file. Lines, Drains, and Airways Type Details Placement Removal Peripheral IV Placement Date: 10/10 04/30; Placement Time: 1049; Placed Outside of This Facility?: No; Size: 20 G; Orientation: Right; Location: Forearm; Site Prep: Chlorhexidine; Local Anesthetic: None; Inserted By: Kelsie HAYS; Insertion attempts: 1; Ultrasound-guided Placement?: No; Patient Tolerance: Tolerated well; Removal Date: 11/05/22; Removal Time: 1324; Removal Reason: Patient Discharged 11/05/22 1049 by Kelsie Lindsay RN 11/05/22 1324 by Damari Decker RN documented in this encounter Social History Tobacco Use Types Packs/Day Years [...] Coronavirus/COVID-19? No / Unsure 11/05/2022 9:53 AM MANAGER SOFTWARE documented as of this encounter OR Notes * Anesthesia Postprocedure Evaluation - Hector Head MD - 11/05/2022 1:10 PM CST Anesthesia Post-op Note Nayeli Hall Procedure(s): COLONOSCOPY WITH SIGMOID POLYPECTOMY VIA JUMBO COLD FORCEPS Anesthesia type: general Vitals: 11/05/22 1325 BP: 97/63 Vitals: 11/05/22 1325 Pulse: 69 Vitals: 11/05/22 1325 Resp: 28 Vitals: 11/05/22 1259 Temp: 36.1 ??C Vitals: 11/05/22 1325 SpO2: 95% Patient Location: Phase II/Outpatient Level of Consciousness: awake and oriented Pain Management: adequate analgesia Airway Patency: patent Respiratory Status: acceptable, spontaneous ventilation, nonlabored ventilation and room air Cardiovascular Status: acceptable Post-Op Nausea: none Postoperative Hydration: euvolemic Comments: No anesthetic related complaints are voiced There were no known notable events for this encounter. GER SOFTWARE * Anesthesia Postprocedure Evaluation - Hector Head MD - 11/05/2022 1:01 PM CST Anesthesia Post-op Note Nayeli Hall Procedure(s): COLONOSCOPY WITH SIGMOID POLYPECTOMY VIA JUMBO COLD FORCEPS Anesthesia type: general Vitals: 11/05/22 1325 BP: 97/63 Vitals: 11/05/22 1325 Pulse: 69 Vitals: 11/05/22 1325 Resp: 28 Vitals: 11/05/22 1259 Temp: 36.1 ??C Vitals: 11/05/22 1325 SpO2: 95% Patient Location: Endoscopy Level of Consciousness: awake Pain Management: adequate analgesia Airway Patency: patent Respiratory Status: spontaneous ventilation, nonlabored ventilation and room air Cardiovascular Status: hemodynamically stable Post-Op Nausea: none Postoperative Hydration: euvolemic There were no known notable events for this encounter. GER SOFTWARE * Anesthesia Preprocedure Evaluation - Hector Head MD - 11/05/2022 11:08 AM CST Anesthesia ROS/MED History Reviewed: Patient summary , ECG, Family history anesthesia, Anesthesia history , Medications , Labs , Images/Studies , Unchecked boxes are not applicable Pre-Anesthetic State: alert, awake and responds appropriately no history of anesthetic complications (Negative MH, FH) Pulmonary (+) COPD, asthma, smoker (Every Day, 1 PPD)(-) pneumonia, recent URI, sleep apnea Cardiovascular (+) hyperlipidemia(-) hypertension, Valvular problems/Murmurs, past VT, CAD, arrhythmia ROS comment: Heart cath 04/23/19: ??1. ??Left main medium size artery, no stenosis. ?2. ??LAD minimal irregularity, occasional calcification. ??No obstructive lesion. ?3. ??Left circumflex artery medium size, no stenosis. ?4. ??RCA dominant vessel, minimal irregularity, no obstructive lesion noted. ?LV gram showed normal size left ventricle, normal left ventricular systolic function. ?SUMMARY: ?1. ??Mild coronary artery disease. ?2. ??Normal left ventricular systolic function. ?? EKG 04/23/19: Normal sinus rhythm nonspecific IVCD NSST changes When compared with ECG of 16-NOV-2015 18:54, No significant change Neuro/Psych (+) neuromuscular disease, (neuropathy)(-) no seizures, no TIA, no CVA, no substance use GI/Hepatic/Renal (+) GERD Endo/Other (+) diabetes mellitus, (diet controlled), (type 2), hypothyroidism, arthritis, (OA) (-) blood dyscrasia Comments: Hodgkin's Lymphoma,received chemo and radiation - 2015 GENERAL COMMENTS Pre-op diagnosis: Hx of polyps Procedure: COLONOSCOPY Past Surgical History: No date: APPENDECTOMY No date: COLONOSCOPY,DIAGNOSTIC No date: HAND/FINGER SURGERY; Left Comment: ring finger No date: HYSTERECTOMY Past Medical History: No date: Adenomatous colon polyp 2016: Cancer (CMS/HCC) Comment: Hodgkin's Lymphoma,received chemo and radiation No date: COPD (chronic obstructive pulmonary disease) (CMS/HCC) No date: Diabetes mellitus (CMS/HCC) No date: Hodgkin's lymphoma (CMS/HCC) No date: Hypothyroid Physical Evaluation Airway Mallampati: II TM Distance: >3 FB Neck ROM: normal Dental (upper dentures), (lower dentures) Pulmonary Breath sounds clear to auscultation (+) decreased breath sounds, (diminished bilaterally) Cardiovascular Rhythm: regular Rate: normal Distant heart sounds Other findings: Blood pressure 98/73, pulse 76, temperature 36.7 ??C, temperature source Temporal, resp. rate 11, height 5' 8 (1.727 m), weight 81.6 kg (180 lb), SpO2 96 %. 11/05/22 10:49 GLUCOSE POC: 122 (H) No results for input(s): WBC, RBC, HGB, HCT, PLT, NA, K, CL, CO2, AGAP, BUN, CR, BUNCREATININ, GFRNON, GFR, GLU, CA in the last 72 hours. Anesthesia Plan ASA 3 Intravenous Induction Anesthesia type: general TIVA/ General Anesthesia Plan for Airway: Nasal cannula / Simple face mask Plan for Post Operative Pain: IV analgesics, Oral pain medications per surgeon Nature, alternatives, and risks of plan discussed with patient / guardian including but not limitedto potential corneal abrasion, visual impairment or visual loss, dental injury and damage, esophageal injury, sore throat, awareness, nerve injury secondary to positioning, aspiration, respirtory depr ession, apnea, and respiratory support, hypoxemia, cardiac injury,brain injury, adverse drug reaction, drug allergic reaction, and . Patient expresses understanding that Dr Head not liable or responsible for dental damage. All questions answered. Informed Consent Anesthetic plan and risks discussed with patient of whom consent was obtained. . GER SOFTWARE documented in this encounter Plan of Treatment Not on file documented as of this encounter Visit Diagnoses Not on filedocumented in this encounter Administered Medications Inactive Administered Medications - up to 3 most recent administrations Medication Order MAR Action Action Date Dose Rate Site lactated ringers infusion at 10 mL/hr, Intravenous, Continuous, Starting on Fri11/05/22 at 1130, Until Fri11/05/22 at 1629, Infuse at TKO rate, Pre-Op New Bag 11/05/2022 12:13 PM MANAGER SOFTWARE lidocaine (PF) (XYLOCAINE) 2 % injection Intravenous, PRN, Starting on Fri11/05/22 at 1222, Until Fri11/05/22 at 1302, Anesthesia Intra-Op Given 11/05/2022 12:22 PM MANAGER SOFTWARE 100 mg phenylephrine (TOMÁS-SYNEPHRINE) injection Intravenous, PRN, Starting on Fri11/05/22 at 1256, Until Fri11/05/22 at 1302, Anesthesia Intra-Op Given 11/05/2022 12:56 PM MANAGER SOFTWARE 100 mcg propofol (DIPRIVAN) IV bolus Intravenous, PRN, Starting on Fri11/05/22 at 1222, Until Fri11/05/22 at 1302, Anesthesia Intra-Op Given 11/05/2022 12:57 PM MANAGER SOFTWARE 20 mg Given 11/05/2022 12:53 PM MANAGER SOFTWARE 30 mg Given 11/05/2022 12:50 PM MANAGER SOFTWARE 20 mg documented in this encounter Care Teams Inspector Integrated Circuits Relationship Specialty Start Date End Date Biju Whyte MD [address] [place] [id number] PCP - General FAMILY PRACTICE 10/10/17 documented as of this encounter
--- OUTSIDE RECORDS SUMMARY | 2024-09-04 18:22 | XMS_ITS | Encounter Summary ---
Author Organization [facility] Address [facility]6 [facility] [place] [address] [place] [address] Care Team Providers Care Manager Action Name Role Phone Biju Whyte MD Primary Care Provider [phone] Encounter Details Date Type Department Care Team (Latest Contact Info) Description 08/12/2018 Scan HEALTH INFO SRVCS Scanned, Documents Social History Tobacco Use Types Packs/Day Years [...] on filedocumented in this encounter Care Teams Manager Action Relationship Specialty Start Date End Date Biju Whyte MD [address] [facility] [address] [place] [address] PCP - General FAMILY PRACTICE 10/10/17 documented as of this encounter
--- OUTSIDE RECORDS SUMMARY | 2024-09-04 18:22 | XMS_ITS | Encounter Summary ---
Author Organization [facility] Address [facility] [place] [address] [place] [address] Care Team Providers Care Offset Plate Maker Name Role Phone Candice Lynch MD Primary Care Provider Unavailable Encounter Details Date Type Department Care Team (Late st Contact Info) Description 06/14/[address] [facility] [place] [address] Candice Lynch MD Social History Tobacco Use Types Packs/Day Years [...] on filedocumented in this encounter Care Teams Offset Plate Maker Relationship Specialty Start Date End Date Candice Lynch MD PCP - General 01/08/13 8 documented as of this encounter
--- OUTSIDE RECORDS SUMMARY | 2024-09-04 18:22 | XMS_ITS | Encounter Summary ---
Author Organization [facility] Address [facility] [place] [address] [place] [address] Care Team Providers Care Recruiter Name Role Phone Candice Lynch MD Primary Care Provider Unavailable Biju Whyte MD Primary Care Provider Encounter Details Date Type Department Care Team (Late st Contact Info) Description 08/14/2017 Abstract [facility] Medical Group Multispecialty Care - [address], [address] [place] [id number] Social History Tobacco Use Types Packs/Day Years Used Date Smoking Tobacco: Never Assessed Comments Unknown Sex and Gender Information Value Date Recorded Sex Assigned at Not on file Legal Sex Female 8:02 PM CDT Gender Identity Not on file Sexual Orientation Not on file documented as of this encounter Progress Notes * Candice Sousa Md, MD - 08/14/2017 11:00 AM CST Message Message: Patient completed 6MWT. See report. Signatures Electronically signed by : Roman Mendez RT; Aug 14 2017 11:09AM DIETITIAN THERAPEUTIC (Author) documented in this encounter Plan of Treatment Not on file documented as of this encounter Visit Diagnoses Not on filedocumented in this encounter Care Teams Recruiter Relationship Specialty Start Date End Date Candice Lynch MD PCP - General 01/08/13 8 Biju Whyte MD [address] [facility] [address] [place] [address] PCP - General FAMILY PRACTICE 10/10/17 documented as of this encounter
--- OUTSIDE RECORDS SUMMARY | 2024-09-04 18:22 | XMS_ITS | Encounter Summary ---
Author Organization [facility] Address [facility]6 [facility] [place] [address] [place] [address] Care Team Providers Care Records Management Analyst Name Role Phone Candice Lynch MD Primary Care Provider Unavailable Biju Whyte MD Primary Care Provider [phone] Encounter Details Date Type Department Care Team (Late st Contact Info) Description 08/14/2017 Abstract [facility] Medical Group Multispecialty Care - [facility] [address] [facility] [address] [place] [id number] Yesica Tinsley MD [address] [facility] [address] [place] [address] Social History Tobacco Use Types Packs/Day Years Used Date Smoking Tobacco: Never Assessed Comments Unknown Sex and Gender Information Value Date Recorded Sex Assigned at Not on file Legal Sex Female 8:02 PM CDT Gender Identity Not on file Sexual Orientation Not on file documented as of this encounter Last Filed Vital Signs Vital Sign Reading Time Taken Comments Blood Pressure 105/62 08/14/2017 10:59 AM PRODUCTION LAPPING MACHINE OPERATOR Pulse 85 08/14/2017 10:59 AM PRODUCTION LAPPING MACHINE OPERATOR Temperature - - Respiratory Rate - - Oxygen Saturation - - Inhaled Oxygen Concentration - - Weight 85.3 kg (188 lb) 08/14/2017 10:59 AM PRODUCTION LAPPING MACHINE OPERATOR Height 172.7 cm (5' 8 ) 08/14/2017 10:59 AM PRODUCTION LAPPING MACHINE OPERATOR Body Mass Index 28.59 08/14/2017 10:59 AM PRODUCTION LAPPING MACHINE OPERATOR documented in this encounter Progress Notes * Yesica Tinsley MD - 08/14/2017 10:20 AM CST Assessment 1. COPD (chronic obstructive pulmonary disease) (496) (J44.9) 2. Hodgkins lymphoma (201.90) (C81.90) 3. Nocturnal hypoxia (327.24) (G47.34) 4. Nicotine dependence (305.1) (F17.200) Plan COPD (chronic obstructive pulmonary disease) 1. Albuterol Sulfate (2.5 MG/3ML) 0.083% Inhalation Nebulization Solution; USE 1 UNIT DOSE IN NEBULIZER EVERY 4 TO 6 HOURS NEEDED Rx By: Yesica Tinsley; Dispense: 0 Days ; #:3 X 60 x 3 ML Plas Cont; Refill: 1; For: COPD (chronic obstructive pulmonary disease); MELONY = N; Verified Transmission to [facility] [id number]; Last Updated By: [employer]; 08/14/2017 11:35:09 AM 2. Overnight Oximetry Testing; Status:Active; Requested for:[id number]; Perform:Other; Due:[id number];Ordered; For:COPD (chronic obstructive pulmonary disease); Ordered By:Yesica Tinsley; 3. Follow-up visit in 6 weeks Outpatient Follow-up Status: Complete Done: [id number] Ordered; For: COPD (chronic obstructive pulmonary disease); Ordered By: Yesica Tinsley Performed: Due: [id number]; Last Updated By: Camille Cueto; 08/14/2017 11:57:31 AM 4. Proventil HFA 108 (90 Base) MCG/ACT Inhalation Aerosol Solution; INHALE 1 OR 2 PUFFS EVERY 4-6 HOURS NEEDED AND DIRECTED Rx By: Yesica Tinsley; Dispense: 0 Days ; #:1 X 6.7 GM Inhaler; Refill: 3; For: COPD (chronic obstructive pulmonary disease); MELONY = N; Verified Transmission to [facility] [id number]; Last Updated By: [employer]; 08/14/2017 11:35:07 AM 5. Schedule PFT Outpatient Follow-up Status: Complete Done: [id number] Ordered; For: COPD (chronic obstructive pulmonary disease); Ordered By: Yesica Tinsley Performed: Due: [id number]; Last Updated By: Camille Cueto; 08/14/2017 11:57:31 AM 6. Qvar 80 MCG/ACT Inhalation Aerosol Solution; INHALE 2 PUFFS, BY MOUTH, TWICE DAILY. RINSE MOUTH AFTER USE Rx By: Yesica Tinsley; Dispense: 0 Days ; #:1 X 8.7 GM Inhaler; Refill: 4; For: COPD (chronic obstructive pulmonary disease); MELONY = N; Verified Transmission to [facility] [id number]; Last Updated By: Yari Herron; 08/14/2017 11:35:08 AM Pt glenroy manuel clark 52 yo female who is here to establish care. She has a history of COPD and in need of new meds and service plumber. She is a current smoker, we discussed the importance of smoking cessation >5 min. She has had testing at [place], will try to request those records She does want oxygen for home, POC. Sats here ok on RA at rest. Will check overnight oximetry. She notes she did not tolerate Duonebs, just albuterol. Consider sleep study in the future. Check Cashion next visit. Repeat PFTs here at next visit. F/U 6 weeks. Chief Complaint Patient here to establish care with service plumber. She does have a pulmonary history with Dr Grimaldo in [place]. She is currently in remission after treatment for Hodgkins lymphoma with Dr Castellanos. She is out of inhalers, she does use an Albuterol inhaler when needed. Requesting POC. Current every day smoker 1ppd X 35+years. CT of chest 2-3 weeks ago at [facility]. History of Present Illness HPI Free Text: Pt is a pleasant 52 yo who is here to establish care. Dx w Hodgkins 2014 and went into remission 1 year ago. Then dx w COPD. Last year has been rough. Out of all inhalers. Previously saw service plumber. Dr. Mascorro used to come to [place] and needed to get new doctors, living w Daughter b/c old living situation bad w mold. Out of all inhalers. Has a nebulizer, has some treatments left. Albuterol. Sent to ER recently for SOB and had CT w chronic fibrosis and emphysema Wind bothers her breathing. Some days good some days bad - fevers - cough, dry - chest pain; rare w sob. + sob, can walk slowly w/o getting SOB - LE edema + wheezing + weight gain, weight went up due to hypothyroidism, no coming back. (50lbs up) + heartburn or reflux, upcoming GI and hiatal hernia + oxygen usage, started when saw Dr. Ponce; was sob and chest pains. - CPAP/BIPAP, never tested. Always tired--may be thyroid. Not sure about snoring. - Exercise, back limits her - allergies Inhalers: qvar and rescue Prior testing: CT chest recently [place]ne[place] fibrosis, infiltrate emphysema PFTs [place] in last year. SH: + Smoking 1ppd; 35 years. Tried nicotine patches and got skin reaction Denies exposure to TB, mold, asbestos (not sure) No exposure to birds/chickens; dogs+ Occupation: used to work in [employer] office. Worked him [employer]. FH: Aunt and Grandma COPD and emphysema. Review of Systems Constitutional: negative. Head and Face: negative. Eyes: negative. ENT: negative. Cardiovascular: negative. Respiratory: as noted in HPI. Gastrointestinal: negative. Genitourinary: negative. Musculoskeletal: negative. Psychiatric: negative. Hematologic and Lymphatic: negative. Neurological Negative. Endocrine Negative. Active Problems 1. Abnormal chest CT (793.2) (R93.8) 2. Hodgkins lymphoma (201.90) (C81.90) 3. Nocturnal hypoxia (327.24) (G47.34) 4. Pulmonary nodule (793.11) (R91.1) Family History 1. No pertinent family history 2. No pertinent family history Social History ?? Current every day smoker (305.1) (F17.200) Current Meds 1. Albuterol Sulfate (2.5 MG/3ML) 0.083% Inhalation Nebulization Solution; Therapy: (Recorded:[id number]) to Recorded 2. Fosamax 10 MG TABS; Therapy: (Recorded:90Yol1116) to Recorded 3. Synthroid 50 MCG Oral Tablet; Therapy: (Recorded:96Alk5207) to Recorded Allergies 1. Codeine Recorded By: Kari Martinez; 08/14/2017 11:05:30 AM 2. Latex Exam Gloves MISC Recorded By: Kari Martinez; 08/14/2017 11:05:30 AM Vitals Recorded: [id number] 10:59AM Heart Rate 85 Respiration 16 Systolic 105 Diastolic 62 O2 Saturation 95 Height 5 ft 8 in Weight 188 lb BMI Calculated 28.59 BSA Calculated 1.99 Physical Exam Constitutional: awake, alert and no acute distress. Eyes: PERRL and normal conjunctiva. Ears: TM's normal and EAC normal. Mouth: mucosa moist and normal oropharynx. Neck: no adenopathy, thyroid not enlarged and no thyroid nodules. Cardiovascular: RRR, normal S1/S2, no murmurs, no gallop and no rubs. Vascular: no carotid bruit, no lower extremity edema and peripheral pulses intact. Respiratory: CTAB, no wheezing, no crackles/rales and no rhonchi. Abdomen: soft, no tenderness and no hepatosplenomegaly. Neurlogical: cranial nerves intact, normal strength and normal sensation. Extremities: normal gait and normal movement of the extremities. Signatures Electronically signed by : Yesica Tinsley M.D.; Aug 17 2017 5:45PM PRODUCTION LAPPING MACHINE OPERATOR (Author) documented in this encounter Plan of Treatment Not on file documented as of this encounter Visit Diagnoses Not on filedocumented in this encounter Care Teams Records Management Analyst Relationship Specialty Start Date End Date Candice Lynch MD PCP - General 01/08/13 8 Biju Whyte MD [address] [address] PCP - General FAMILY PRACTICE 10/10/17 documented as of this encounter
--- OUTSIDE RECORDS SUMMARY | 2024-09-04 18:22 | XMS_ITS | Encounter Summary ---
Author Organization [facility] Address [facility] [address] [place] [address] Care Team Providers Care Lens Block Gauger Name Role Phone Candice Lynch MD Primary Care Provider Unavailable Biju Whyte MD Primary Care Provider Encounter Details Date Type Department Care Team (Latest Contact Info) Description 08/04/2017 Abstract [facility] Medical Group Social History Tobacco Use Types [...] on filedocumented in this encounter Care Teams Lens Block Gauger Relationship Specialty Start Date End Date Candice Lynch MD PCP - General 01/08/13 8 Biju Whyte MD [address] [facility] [address] [place] [address] PCP - General FAMILY PRACTICE 10/10/17 documented as of this encounter
--- OUTSIDE RECORDS SUMMARY | 2024-09-04 18:22 | XMS_ITS | Encounter Summary ---
Author Organization [facility] Address [facility] [place] [address] [place] [address] Care Team Providers Care Portrait Studio Photographer Name Role Phone Candice Lynch MD Primary Care Provider Unavailable Biju Whyte MD Primary Care Provider Encounter Details Date Type Department Care Team (Latest Contact Info) Description 09/12/2017 Abstract [facility] Medical Group Social History Tobacco Use Types [...] on filedocumented in this encounter Care Teams Portrait Studio Photographer Relationship Specialty Start Date End Date Candice Lynch MD PCP - General 01/08/13 8 Biju Whyte MD [address] [facility] [address] [place] [address] PCP - General FAMILY PRACTICE 10/10/17 documented as of this encounter
--- OUTSIDE RECORDS SUMMARY | 2024-09-04 18:22 | XMS_ITS | Encounter Summary ---
Author Organization [facility] Address [facility] [facility] [place] [address] [place] [address] Care Team Providers Care Process Improvement Engineer Name Role Phone Candice Lynch MD Primary Care Provider Unavailable Biju Whyte MD Primary Care Provider Encounter Details Date Type Department Care Team (Latest Contact Info) Description 08/15/2017 Abstract [facility] Medical Group Social History Tobacco [...] on filedocumented in this encounter Care Teams Process Improvement Engineer Relationship Specialty Start Date End Date Candice Lynch MD PCP - General 01/08/13 8 Biju Whyte MD [address] [facility] [address] [place] [address] PCP - General FAMILY PRACTICE 10/10/17 documented as of this encounter
--- OUTSIDE RECORDS SUMMARY | 2024-09-04 18:22 | XMS_ITS | Encounter Summary ---
Author Organization [facility] Address [address] [place] [address] Care Team Providers Care Group Fitness Department Head Name Role Phone Unavailable Primary Care Provider Unavailabl e Encounter Details Date Type Department Care Team (Latest Contact Info) Description 08/30/2015 Hospital Outpatient Visit [facility] [address] [place] [id number] Amandeep Yadav MD [address] DIV OF PULMONARY/[place] [address] Discharge Disposition: Home or Self Care Social History Tobacco Use Types Packs/Day Years [...]
--- OUTSIDE RECORDS SUMMARY | 2024-09-04 18:22 | XMS_ITS | Encounter Summary ---
Author Organization [facility] Address [address] [facility]. [address] Care Team Providers Care Sand Cutter Operator Name Role Phone Biju Whyte MD Primary Care Provider [phone] Encounter Details Date Type Department Care Team (Latest Contact Info) Description 10/17/2017 Abstract [facility] Medical Group Yesica Tinsley MD [address] [facility] [address] [place] [address] Social History Tobacco Use Types Packs/Day Years [...] Procedure Name Priority Date/Time Associated Diagnosis Comments INFLUENZA A & B Routine 10/17/2017 2:30 PM UNIVERSAL GRINDER TOOL documented in this encounter Results * INFLUENZA A & B (10/17/2017 2:30 PM UNIVERSAL GRINDER TOOL) SPECIMEN TYPE NASAL [facility] UP TO EPIC CONVERSION INFLUENZA A NEGATIVE NEG [facility] TO EPIC CONVERSION INFLUENZA B NEGATIVE ?? Interpretation: Negative for Influenza A and B. A negative result does not exclude influenza virus infection. If influenza is circulating in your community, a diagnosis of influenza should be considered based on a patient's clinical presentation and empiric antiviral treatment should be considered, if indicated. If more conclusive testing is needed for hospitalized inpatients, follow-up confirmatory testing with RT-PCR requires a separate order. NEG [facility] TO EPIC CONVERSION 10/17/2017 2:30 PM UNIVERSAL GRINDER TOOL 10/17/2017 2:30 PM UNIVERSAL GRINDER TOOL Narrative [facility] TO EPIC CONVERSION - 10/17/2017 3:51 PM UNIVERSAL GRINDER TOOL Result Communication: No patient communication needed at this time us Yesica Tinsley MD MICROBIOLOGY - GENERAL ORDER JOEY Final Result [facility] TO EPIC CONVERSION documented in this encounter Visit Diagnoses Not on filedocumented in this encounter Care Teams Sand Cutter Operator Relationship Specialty Start Date End Date Biju Whyte MD [address] [place] [id number] PCP - General FAMILY PRACTICE 10/10/17 documented as of this encounter
--- OUTSIDE RECORDS SUMMARY | 2024-09-04 18:22 | XMS_ITS | Encounter Summary ---
Author Organization [facility] Address [facility] [facility] [place] [address] [place] [address] Care Team Providers Care Manager Food Beverage Name Role Phone Biju Whyte MD Primary Care Provider [phone] Encounter Details Date Type Department Care Team (Late st Contact Info) Description 10/17/2017 Abstract [facility] Medical Group [facility]ispecialty Care - [facility] [address] [facility], [address] [place] [phone] Yesica Tinsley MD [address] [facility] [address] [place] [address] Social History Tobacco Use Types Packs/Day Years Used Date Smoking Tobacco: Never Assessed Comments Unknown Sex and Gender Information Value Date Recorded Sex Assigned at Not on file Legal Sex Female 8:02 PM CDT Gender Identity Not on file Sexual Orientation Not on file documented as of this encounter Last Filed Vital Signs Vital Sign Reading Time Taken Comments Blood Pressure 102/62 10/17/2017 1:30 PM LOAD DROPPER Pulse 84 10/17/2017 1:30 PM LOAD DROPPER Temperature - - Respiratory Rate - - Oxygen Saturation - - Inhaled Oxygen Concentration - - Weight 85.3 kg (188 lb) 10/17/2017 1:30 PM LOAD DROPPER Height 172.7 cm (5' 8 ) 10/17/2017 1:30 PM LOAD DROPPER Body Mass Index 28.59 10/17/2017 1:30 PM LOAD DROPPER documented in this encounter Progress Notes * Yesica Tinsley MD - 10/17/2017 1:00 PM CST Assessment 1. COPD (chronic obstructive pulmonary disease) (496) (J44.9) 2. Nicotine dependence (305.1) (F17.200) 3. Nocturnal hypoxia (327.24) (G47.34) 4. Hodgkins lymphoma (201.90) (C81.90) Plan COPD (chronic obstructive pulmonary disease) 1. Influenza Type A / B Rapid Ag; Status:Hold For - Manual Activation; Requested for:17Oct2017; [facility]; Due:16Nov2017;Ordered; For:COPD (chronic obstructive pulmonary disease); Ordered By:Yesica Tinsley; 2. Follow-up visit in 2 months Outpatient Follow-up Status: Hold For - Scheduling Requested for: 17Oct2017 Ordered; For: COPD (chronic obstructive pulmonary disease); Ordered By: Yesica Tinsley Performed: Due: 31Oct2017 3. PredniSONE 10 MG Oral Tablet; TAKE 4 TABLETS DAILY FOR 3 DAYS,3 TABLETS DAILY FOR 3 DAYS, 2 TABLETS DAILY FOR 3 DAYS AND 1 TABLET DAILY FOR 3 DAYS, THEN STOP Rx By: Yesica Tinsley; Dispense: 0 Days ; #:30 Tablet; Refill: 0; For: COPD (chronic obstructivepulmonary disease); MELONY = N; Verified Transmission to [facility] [employer] [facility]; Last Updated By: [employer]; 10/17/2017 1:46:03 PM 4. Symbicort 160-4.5 MCG/ACT Inhalation Aerosol; INHALE 2 PUFFS TWICE DAILY. RINSE MOUTH AFTER USE Rx By: Yesica Tinsley; Dispense: 0 Days ; #:1 X 6 GM Inhaler; Refill: 4; For: COPD (chronic obstructive pulmonary disease); MELONY = N; Verified Transmission to [facility] [id number]; Last Updated By: [employer]; 10/17/2017 4:56:21 PM Pt glenroy pleasant 52 yo female who is here to establish care. She has a history of COPD and in need of new meds and downstairs maid. She is a current smoker, we discussed the importance of smoking cessation >5 min. She has PFTs that show mild obstruction. Currently she is in COPD exacerbation, likely triggered by viral. Will send for flu swab. Will send in steroid taper. Start Symbicort. Continue oxygen nocturnally. She did not require oxygen with exertion. She notes she did not tolerate Duonebs, just albuterol. Consider sleep study in the future. Check [place] next visit. Chief Complaint Patient here for follow up visit. She completed PFT's and 6 min walk this week at the hospital. Shedid not qualify for oxygen with activity however she does continue to need, use and benefit from use at night. using Albuterol nebs. out of rescue inhaler. Not sure about Qvar. Trying to quit smoking, less than 1 ppd. History of Present Illness HPI Free Text: Pt is a pleasant 52 yo who is here for followup. Unfortunately since yesterday she has developed a bad cough. Doesn't feel good. Wheezing. Coughing caused headache. No fevers. No chills. Nonproductive cough. Grandson had strep last week. Nebulizer quite a bit in last 2 days but triesto avoid it. Doesn't have rescue inhaler, didn't get a chance to pick it up. Used oxygen during theday yesterday b/c felt so awful. ?body aches. Dx w Hodgkins 2014 and went into remission 1 year ago. Then dx w COPD. Previously saw downstairs maid. Dr. Mascorro used to come to [place] and needed to get new doctors,living w Daughter b/c old living situation bad w mold. Sent to ER recently for SOB and had CT w chronic fibrosis and emphysema She is smoking <1ppd - fevers +cough - chest pain; rare w sob. + [...] chest recently Aneesh fibrosis, infiltrate emphysema PFTs baker in last year. PFTs mild obstruction SH: + Smoking 1ppd; 35 years. Tried nicotine patches and got skin reaction Denies exposure to TB, mold, asbestos (not sure) No exposure to birds/chickens; dogs+ Occupation: used to work in [employer] office. Worked him [employer] [facility]. FH: Aunt and Grandma COPD and emphysema. Review of Systems Constitutional: negative. Head and Face: negative. Eyes: negative. ENT: negative. Cardiovascular: negative. Respiratory: as noted in HPI. Gastrointestinal: negative. Genitourinary: negative. Musculoskeletal: negative. Psychiatric: negative. Hematologic and Lymphatic: negative. Neurological Negative. Endocrine Negative. Active Problems 1. Abnormal chest CT (793.2) (R93.8) 2. COPD (chronic obstructive pulmonary disease) (496) (J44.9) 3. Hodgkins lymphoma (201.90) (C81.90) 4. Nicotine dependence (305.1) (F17.200) 5. Nocturnal hypoxia (327.24) (G47.34) 6. Pulmonary nodule (793.11) (R91.1) Family History 1. No pertinent family history 2. No pertinent family history Social History ?? Current every day smoker (305.1) (F17.200) Current Meds 1. Albuterol Sulfate (2.5 MG/3ML) 0.083% Inhalation Nebulization Solution; USE 1 UNIT DOSE IN NEBULIZER EVERY 4 TO 6 HOURS NEEDED; Therapy: 14Aug2017 to (Last Rx:[id number]) Requested for: 14Aug2017 Ordered 2. Albuterol Sulfate (2.5 MG/3ML) 0.083% Inhalation Nebulization Solution; Therapy: (Recorded:[id number]) to Recorded 3. Fosamax 10 MG TABS; Therapy: (Recorded:74Myh1103) to Recorded 4. Proventil HFA 108 (90 Base) MCG/ACT Inhalation Aerosol Solution; INHALE 1 OR 2 PUFFS EVERY 4-6 HOURS NEEDED AND DIRECTED; Therapy: [id number] to (Last Rx:[id number]) Requested for: [id number] Ordered 5. Qvar 80 MCG/ACT Inhalation Aerosol Solution; INHALE 2 PUFFS, BY MOUTH, TWICE DAILY. RINSE MOUTH AFTER USE; Therapy: 36Yka0578 to (Last Rx:[id number]) Requested for: 18Hfr1522 Ordered 6. Synthroid 50 MCG Oral Tablet; Therapy: (Recorded:[id number]) to Recorded Allergies 1. Codeine 2. Latex Exam Gloves [facility] [place] Vit[place] Recorded: [id number] 01:30PM Heart Rate 84 Respiration 20 Systolic 102 Diastolic 62 O2 Saturation 94 Height 5 ft 8 in Weight 188 [...] extremity edema and peripheral pulses intact. Respiratory: lungs not clear, wheezing and rhonchi, but no crackles/rales. Abdomen: soft, no tenderness and no hepatosplenomegaly. Neurlogical: cranial nerves intact, normal strength and normal sensation. Extremities: normal gait and normal movement of the extremities. Signatures Electronically signed by : Yesica Tinsley M.D.; Oct 18 2017 9:13PM LOAD DROPPER (Author) documented in this encounter Plan of Treatment Not on file documented as of this encounter Visit Diagnoses Not on filedocumented in this encounter Care Teams Manager Food Beverage Relationship Specialty Start Date End Date Biju Whyte MD [address] [place] [id number] PCP - General FAMILY PRACTICE 10/10/17 documented as of this encounter
--- OUTSIDE RECORDS SUMMARY | 2024-09-04 18:22 | XMS_ITS | Encounter Summary ---
Author Organization [facility] Address [facility] [place] [address] [place] [address] Care Team Providers Care Dermatology Sales Representative Name Role Phone Biju Whyte MD Primary Care Provider [phone] Reason for Visit * Auth/Cert (Routine) Specialty Diagnoses / Procedures Referred By Dione beatty Referred To Contact Diagnoses Hx of polyps Procedures COLONOSCOPY Vinny Casillas, DO #3 [facility] [address] [place] [address] Phone: tel: fax: Referral ID Status Reason Start Date Expiration Date Visits Re quested Visits Authorized [id number] 1 1 Encounter Details Date Type Department Care Team (Late st Contact Info) Description 11/05/2022 11:00 AM LIVESTOCK SHOWMAN - 11/05/2022 11:30 AM LIVESTOCK SHOWMAN Surgery [facility] End[place] [address] Vinny Casillas, DO #3 [facility] [address] [place] [address] COLONOSCOPY WITH SIGMOID POLYPECTOMY VIA JUMBO COLD FORCEPS Surgery Details Date/Time Status Location OR Service Patient Class Case Class Case Type Trauma Case? 11/05/2022 11:00 AM Posted [facility] Endo 2 Gastroenterology Short Stay/Outpa tient Surgery No Panel 1 Procedure LRB Anes Op Region Wound Class Comments COLONOSCOPY WITH SIGMOID POLYPECTOMY VIA JUMBO COLD FORCEPS N/A General Clean Contaminated DIVERTICULOSIS HEMORRHOIDS Surgeon Surgeon Role Service Panel Vinny Casillas DO Primary Gastroenterology 1 documented in this encounter Social History Tobacco Use Types Packs/Day Years Used Date Smoking Tobacco: Every Day Cigarettes Smokeless Tobacco: Never Tobacco Cessation:Ready to Q uit: Not Asked; Counseling Given: Not Answered Alcohol Use Standard Drinks/Week Comments Not Currently [...] Coronavirus/COVID-19? No / Unsure 11/05/2022 9:53 AM LIVESTOCK SHOWMAN documented as of this encounter Last Filed Vital Signs Vital Sign Reading Time Taken Comments Blood Pressure 98/73 11/05/2022 10:38 AM LIVESTOCK SHOWMAN Pulse 76 11/05/2022 10:38 AM LIVESTOCK SHOWMAN Temperature 36.7 ??C (98 ??F) 11/05/2022 10:38 AM LIVESTOCK SHOWMAN Respiratory Rate 11 11/05/2022 10:38 AM LIVESTOCK SHOWMAN Oxygen Saturation 96% 11/05/2022 10:38 AM LIVESTOCK SHOWMAN Inhaled Oxygen Concentration - - Weight 81.6 kg (180 lb) 10/30/2022 12:44 PM LIVESTOCK SHOWMAN Height 172.7 cm (5' 8 ) 10/30/2022 12:44 PM LIVESTOCK SHOWMAN Body Mass Index 27.37 10/30/2022 12:44 PM LIVESTOCK SHOWMAN documented in this encounter Discharge Instructions * Discharge Instructions* Damari Decker RN - 11/05/2022 1:23 PM LIVESTOCK SHOWMAN Recommendations: Benefiber 1 tablespoon in 8 ounces of water daily. Call 2 weeks for biopsy report. Follow-up with primary as needed. Check colonoscopy pending biopsies. STOCK SHOWMAN * Attachments The following attachments cannot be sent through Care Everywhere. * Colonoscopy Discharge Instructions ([place]) * General Anesthesia Discharge Instructions ([place]) documented in this encounter Medications at Time of Discharge Medication Sig Dispense Quantity Refills Last Filled Start D ate End Date albuterol (PROVENTIL) (2.5 MG/3ML) 0.083% nebulizer solution 11/22/2015 albuterol sulfate HFA 108 (90 Base) MCG/ACT inhaler 11/22/2015 documented as of this encounter H&P Notes * Vinny Casillas, - 11/05/2022 6:19 AM CST This very pleasant patient was seen at the request of the primary physician and with the patient's permission. The patient was examined the chart was reviewed. Reason for encounter: Colonoscopy. Impression/problem: History of adenomatous colon polyps. Recommendations: Colonoscopy. History: History of GERD. No medications. The patient is a history adenomatous colon polyps. GI ROS is otherwise unremarkable. Allergies: No Known Allergies Medications: No current facility-administered medications on file prior to encounter. Current Outpatient Medications on File Prior to Encounter Medication Sig ??? albuterol sulfate HFA 108 (90 Base) MCG/ACT inhaler ??? albuterol (PROVENTIL) (2.5 MG/3ML) 0.083% nebulizer solution PMH: Past Medical History: Diagnosis Date ??? Adenomatous colon polyp ??? Cancer (CMS/HCC) 2016 Hodgkin's Lymphoma,received chemo and radiation ??? COPD (chronic obstructive pulmonary disease) (CMS/HCC) ??? Diabetes mellitus (CMS/HCC) ??? Hodgkin's lymphoma (CMS/HCC) ??? Hypothyroid PSH: Past Surgical History: Procedure Laterality Date ??? APPENDECTOMY ??? COLONOSCOPY,DIAGNOSTIC ??? HAND/FINGER SURGERY Left ring finger ??? HYSTERECTOMY [facility] No family history on file. Social: Social History Socioeconomic History ??? Marital status: Unknown Tobacco Use ??? Smoking status: Every Day Packs/day: 1.00 Types: Cigarettes ??? Smokeless tobacco: Never Substance and Sexual Activity ??? Alcohol use: Not Currently ??? Drug use: Never 14 point review of systems is unremarkable except for that mentioned above. Physical examination: General: The patient is alert and in no acute distress. HEENT: Head was normocephalic, sclerae clear, mouth without masses and neck was supple. Cardiac: Heart rate and rhythm were regular without S3 or S4. No carotid bruits. Lungs: CTA. Abdomen: Soft without pain. Bowel sounds active. No significant distention or tenderness. Neurologic: Nonfocal. Cranial nerves II through XII were intact. SUYAPA: No significant joint tenderness or swelling. No significant muscle atrophy. Extremities: No significant edema noted. Skin: Warm and dry without rashes. Mental status: Patient is alert and oriented. Patient is cooperative and appropriate. Rectal: Deferred. Thank you for allowing me to participate in the care of this most listening patient. If I can be ofany further service to you, please do not hesitate to contact me. Vinny Casillas DO STOCK SHOWMAN documented in this encounter Nursing Notes * Damari Decker RN - 11/05/2022 2:26 PM CST This RN went to patient's room and she is no longer in the room. A R Specialist was made aware. STOCK SHOWMAN * Damari Decker RN - 11/05/2022 2:14 PM CST This RN spoke with patient's ride home, Yamile daughter, she stated she had to leave to take care of her child. Yamile was unsure if she would be able to berry picker machine operator patient and would contact another family member to see if they could take patient home. Patient stated her car was outside and would drive herself home if needed. She stated she drove herself back and forth to chemo each time and would be cautious when driving today. Patient was educated on the importance of not driving post anesthesia. Patient attempted her granddaughter and was unable to get in contact with her. This RN contacted Yamile again and Yamile is unable to find someone else to take patient home. at this time patient is resting comfortably and attempting to find a ride home. STOCK SHOWMAN documented in this encounter OR Notes * Op Note - Vinny Casillas DO - 11/05/2022 1:01 PM CST Colonoscopy History/Preop: History of adenomatous colon polyps. Post Op: Left-sided diverticulosis coli with fixated sigmoid colon. Polyp sigmoid colon. Internal hemorrhoidal tissue. Procedure Performed: Colonoscopy Findings: Digital rectal examination was unremarkable. The colonoscope was carefully advanced through a fixated sigmoid colon and colonoscopy to the cecum was completed. Examination of the colon revealed left-sided diverticulosis coli. The sigmoid colon was significantly fixated. A small polyp in the sigmoidcolon was resected and recovered utilizing jumbo biopsy forceps. Resection and recovery was complete. The rectum was examined in forward and retroflexed views. Internal hemorrhoidal tissue was noted Recommendations: Benefiber 1 tablespoon in 8 ounces of water daily. Call 2 weeks for biopsy report. Follow-up with primary as needed. Check colonoscopy pending biopsies. Anes: MAC Complications: No immediate. Quality Indicators: EBL: <5 mL Prep: Good. Procedure: The benefits, risks, complications and alternatives were explained in detail to the patient/power of civil rights attorney. These were understood, assumed and written consent was obtained. The risk and complications include, but are not limited to, hemorrhage, perforation, infection, blood transfusion surgery, and missed lesions. Anesthesia risks were explained by the department of anesthesiology. These include, but are not limited to, allergic reactions, cardiopulmonary arrest, heart attack, stoke, and infection. All question were answered and understood. Vinny Casillas DO STOCK SHOWMAN documented in this encounter Plan of Treatment Not on file documented as of this encounter Procedures Procedure Name Priority Date/Time Associated Diagnosis Comments PROCEDURE GENERIC 11/05/2022 12: 51 PM LIVESTOCK SHOWMAN COLONOSCOPY WITH BIOPSY 11/05/2022 12:14 PM LIVESTOCK SHOWMAN Hx of polyps POCT GLUCOSE - BINGHAM DOCKED DEVICE Routine 11/05/2022 10:49 AM LIVESTOCK SHOWMAN COLONOSCOPY Routine 11/05/2022 10:31 AM LIVESTOCK SHOWMAN PATHOLOGY Routine 11/05/2022 12:00 AM LIVESTOCK SHOWMAN documented in this encounter Results * PROCEDURE GENERIC (11/05/2022 12:51 PM LIVESTOCK SHOWMAN) us Vinny Casillas DO [facility] Final Result * (ABNORMAL) POCT glucose (11/05/2022 10:49 AM LIVESTOCK SHOWMAN) [facility] GLUCOSE POC 122(H) 70 - 99 mg/dL 11/05/2022 10:52 AM LIVESTOCK SHOWMAN [facility] 11/05/2022 10:4 9 AM LIVESTOCK SHOWMAN Vinny Casillas DO POCT ORDERABLES - DEVICE Final Result [facility] [address] [facility] [place] [address], * Pathology (11/05/2022 12:00 AM LIVESTOCK SHOWMAN) [facility] COPATH REPORT ?[facility] ? [address] ? [place] ??[address] ? [id number] ? Department of Pathology ? Pathology Report ? SURGICAL FINAL REPORT Patient Name: NAYELI HARRINGTON ? : 1965 (Age: 57) ?Location: [facility] Gender: F ?Collected Date: 11/05/2022 Med Rec #: [id number] ?Date Received: 11/05/2022 Date Reported: 11/06/2022 Provider: VINNY CASILLAS DO ?SHAWN DUNHAM MD ?BIJU WHYTE MD Specimen(s) Polyp, sigmoid colon Final Pathologic Diagnosis SIGMOID COLON, POLYP; BIOPSY: -HYPERPLASTIC POLYP Electronically Signed Out ? ROSELINE HUTCHINSON MD Pathologist [facility] Microscopic Description: Microscopic examination is performed, and the findings support the final diagnosis. Clinical History Hx of polyps Gross Description Received is a single formalin-filled container labeled with the patient's name (Nayeli Harrington), date of (1965) (collection time 11/05/2022 at 1258) and additionally labeled sigmoid polyp. ??The specimen consists of a single pink-sandoval to red-pink fragment of tissue measuring 0.4 cm in greatest dimension. The specimen is submitted in toto in cassette 1. ? :[facility] Billing Fee Code(s): 97620 [facility] TISSUE COLON STRUCTURE / Unknown 11/05/2022 12:58 PM LIVESTOCK SHOWMAN us Vinny Casillas DO PATHOLOGY/CYTOLOGY ORDERABLES F inal Result [facility] 3 [place] [address], documented in this encounter Visit Diagnoses Not on filedocumented in this encounter Administered Medications Inactive Administered Medications - up to 3 most recent administrations Medication Order MAR Action Action Date Dose Rate Site lactated ringers infusion at 10 mL/hr, Intravenous, Continuous, Starting on Fri11/05/22 at 1130, Until Fri11/05/22 at 1629, Infuse at TKO rate, Pre-Op New Bag 11/05/2022 12:13 PM LIVESTOCK SHOWMAN documented in this encounter Active and Recently Administered Medications Times are shown in LIVESTOCK SHOWMAN. Continuous Medication Order 11/03/2022 11/04/2022 11/05/2022 lactated ringers infusion at 10 mL/hr, Intravenous, Continuous, Starting on Fri11/05/22 at 1130, Until Fri11/05/22 at 1629, Infuse at TKO rate, Pre-Op 1213 (New Bag - Prov ider: Inga Jordan CRNA)1302 (Infusion Stop Time - Provider: Inga Jordan CRNA) documented in this encounter Care Teams Dermatology Sales Representative Relationship Specialty Start Date End Date Biju Whyte MD [address] [place] [id number] PCP - General FAMILY PRACTICE 10/10/17 documented as of this encounter
--- OUTSIDE RECORDS SUMMARY | 2024-09-04 18:22 | XMS_ITS | Encounter Summary ---
Author Organization [facility] Address [facility] [place] [address] [place] [address] Care Team Providers Care Wellness Program Administrator Name Role Phone Candice Lynch MD Primary Care Provider Unavailable Biju Whyte MD Primary Care Provider [phone] Encounter Details Date Type Department Care Team (Latest Contact Info) Description 07/30/2017 Abstract [facility] Social History Tobacco Use Types [...] on filedocumented in this encounter Care Teams Wellness Program Administrator Relationship Specialty Start Date End Date Candice Lynch MD PCP - General 01/08/13 8 Biju Whyte MD [address] [facility] [address] [place] [address] PCP - General FAMILY PRACTICE 10/10/17 documented as of this encounter
--- OUTSIDE RECORDS SUMMARY | 2024-09-04 18:22 | XMS_ITS | Encounter Summary ---
Author Organization [facility] Address [facility] [place] [address] [place] [address] Care Team Providers Care Multi Care Technician Name Role Phone Biju Whyte MD Primary Care Provider [phone] Encounter Details Date Type Department Care Team (Late st Contact Info) Description 10/17/2017 Orders Only [facility] [place] [address] Yesica Tinsley MD [address] [place] [id number] Social History Tobacco Use Types Packs/Day Years Used Date Smoking Tobacco: Never Assessed Comments Unknown Sex and Gender Information Value Date Recorded Sex Assigned at Not on file Legal Sex Female 8:02 PM CDT Gender Identity Not on file Sexual Orientation Not on file documented as of this encounter Plan of Treatment Not on file documented as of this encounter Results * INFLUENZA A & B, RAPID (10/17/2017 2:30 PM TRANSPORTATION PROGRAM DIRECTOR) SPECIMEN TYPE NASAL 10/17/2017 2:59 PM TRANSPORTATION PROGRAM DIRECTOR [facility] INFLUENZA A NEGATIVE NEGATIVE 10/17/2017 3:51 PM TRANSPORTATION PROGRAM DIRECTOR [facility] INFLUENZA B NEGATIVE NEGATIVE 10/17/2017 3:51 PM TRANSPORTATION PROGRAM DIRECTOR [facility] Comment: Interpretation: Negative for Influenza A and B. A negative result does not exclude influenza virus infection. If influenza is circulating in your community, a diagnosis of influenza should be considered based on a patient's clinical presentation and empiric antiviral treatment should be considered, if indicated. If more conclusive testing is needed for hospitalized inpatients, follow-up confirmatory testing with RT-PCR requires a separate order. NASOPHARYNGEAL SWAB / Unknown 10/17/2017 2:30 PM TRANSPORTATION PROGRAM DIRECTOR us Yesica Tinsley MD MICROBIOLOGY - GENERAL ORDER JOEY Final Result [facility] 3 [place] [address], documented in this encounter Visit Diagnoses Diagnosis COPD (chronic obstructive pulmonary disease) ([facility])- Primary Chronic airway obstruction, not elsewhere classified documented in this encounter Care Teams Multi Care Technician Relationship Specialty Start Date End Date Biju Whyte MD [address] [address] PCP - General FAMILY PRACTICE 10/10/17 documented as of this encounter
--- OUTSIDE RECORDS SUMMARY | 2024-09-04 18:22 | XMS_ITS | Encounter Summary ---
Author Organization [facility] Address [facility]6 [facility] [place] [address] [place] [address] Care Team Providers Care Skate Maker Name Role Phone Candice Lynch MD Primary Care Provider Unavailable Biju Whyte MD Primary Care Provider Encounter Details Date Type Department Care Team (Latest Contact Info) Description 07/14/2017 Abstract [facility] Social History Tobacco Use Types [...] on filedocumented in this encounter Care Teams Skate Maker Relationship Specialty Start Date End Date Candice Lynch MD PCP - General 01/08/13 8 Biju Whyte MD [address] [facility] [address] [place] [address] PCP - General FAMILY PRACTICE 10/10/17 documented as of this encounter
--- OUTSIDE RECORDS SUMMARY | 2024-09-04 18:22 | XMS_ITS | Encounter Summary ---
Author Organization [facility] Address [facility] [place] [place] [address] [place] [address] Care Team Providers Care Ice Rink Attendant Name Role Phone Candice Lynch MD Primary Care Provider Unavailable Biju Whyte MD Primary Care Provider [phone] Encounter Details Date Type Department Care Team (Latest Contact Info) Description 08/26/2017 Abstract [facility] Social History Tobacco Use [...] on filedocumented in this encounter Care Teams Ice Rink Attendant Relationship Specialty Start Date End Date Candice Lynch MD PCP - General 01/08/13 8 Biju Whyte MD [address] [facility] [address] [place] [address] PCP - General FAMILY PRACTICE 10/10/17 documented as of this encounter
--- OUTSIDE RECORDS SUMMARY | 2024-09-04 18:22 | XMS_ITS | Encounter Summary ---
Author Organization [facility] Address [facility]6 [facility] [place] [address] [place] [address] Care Team Providers Care Stock Cutter Name Role Phone Candice Lynch MD Primary Care Provider Unavailable Encounter Details Date Type Department Care Team (Late st Contact Info) Description 01/08/2013 Emergency [facility] [place] [address] Rodney Pearson MD [address] [facility] [address] [place] [address] Social History Tobacco Use Types Packs/Day Years Used Date Smoking Tobacco: Never Assessed Comments Unknown Sex and Gender Information Value Date Recorded Sex Assigned at Not on file Legal Sex Female 8:02 PM CDT Gender Identity Not on file Sexual Orientation Not on file documented as of this encounter Plan of Treatment Not on file documented as of this encounter Visit Diagnoses Diagnosis Rash and other nonspecific skin eruption documented in this encounter Care Teams Stock Cutter Relationship Specialty Start Date End Date Candice Lynch MD PCP - General 01/08/13 8 documented as of this encounter
--- OUTSIDE RECORDS SUMMARY | 2024-09-04 18:22 | XMS_ITS | Encounter Summary ---
Author Organization [facility] Address [facility]6 [facility] [place] [address] [place] [address] Care Team Providers Care Staff Design Engineer Name Role Phone Biju Whyte MD Primary Care Provider [phone] Encounter Details Date Type Department Care Team (Latest Contact Info) Description 07/14/2018 Scan [facility] , Generic MD Lars Social History Tobacco Use Types Packs/Day Years [...] on filedocumented in this encounter Care Teams Staff Design Engineer Relationship Specialty Start Date End Date Biju Whyte MD [address] [facility] [address] [place] [address] PCP - General FAMILY PRACTICE 10/10/17 documented as of this encounter
--- OUTSIDE RECORDS SUMMARY | 2024-09-04 18:22 | XMS_ITS | Encounter Summary ---
Author Organization [facility] Address [facility] [place] [address] [place] [address] Care Team Providers Care Investor Relations Coordinator Name Role Phone Biju Whyte MD Primary Care Provider Reason for Visit * Auth/Cert (Routine) Specialty Diagnoses / Procedures Referred By Dione beatty Referred To Contact Diagnoses Hx of polyps Procedures COLONOSCOPY Vinny Casillas, DO #3 [facility] [address] [place] [address] Phone: tel: fax: Referral ID Status Reason Start Date Expiration Date Visits Re quested Visits Authorized [id number] 1 1 Encounter Details Date Type Department Care Team (Latest Contact Info) Description 11/05/2022 9:59 AM MOUNTAIN SERVICES MANAGER - 11/05/2022 2:29 PM [facility] Hospital Encounter [facility] [place] [address] Vinny Casillas, DO #3 [facility] [address] [place] [address] Discharge Disposition: Home or Self Care (Routine Discharge) Social History Tobacco Use Types Packs/Day Years [...] Coronavirus/COVID-19? No / Unsure 11/05/2022 9:53 AM MOUNTAIN SERVICES MANAGER documented as of this encounter Last Filed Vital Signs Vital Sign Reading Time Taken Comments Blood Pressure 97/63 11/05/2022 1:25 PM MOUNTAIN SERVICES MANAGER Pulse 69 11/05/2022 1:25 PM MOUNTAIN SERVICES MANAGER Temperature 36.1 ??C (96.9 ??F) 11/05/2022 12:[address] Respiratory Rate 28 11/05/2022 1:25 PM MOUNTAIN SERVICES MANAGER Oxygen Saturation 95% 11/05/2022 1:25 PM MOUNTAIN SERVICES MANAGER Inhaled Oxygen Concentration - - Weight 81.6 kg (180 lb) 10/30/2022 12:44 PM MOUNTAIN SERVICES MANAGER Height 172.7 cm (5' 8 ) 10/30/2022 12:44 PM MOUNTAIN SERVICES MANAGER Body Mass Index 27.37 10/30/2022 12:44 PM MOUNTAIN SERVICES MANAGER documented in this encounter Discharge Instructions * Discharge Instructions* Damari Decker RN - 11/05/2022 1:23 PM MOUNTAIN SERVICES MANAGER Recommendations: Benefiber 1 tablespoon in 8 ounces of water daily. Call 2 weeks for biopsy report. Follow-up with primary as needed. Check colonoscopy pending biopsies. TAIN SERVICES MANAGER * Attachments The following attachments cannot be sent through Care Everywhere. * Colonoscopy Discharge Instructions (Guatemalan) * General Anesthesia Discharge Instructions (Guatemalan) documented in this encounter Medications at Time of Discharge Medication Sig Dispense Quantity Refills Last Filled Start D ate End Date albuterol (PROVENTIL) (2.5 MG/3ML) 0.083% nebulizer solution 11/22/2015 albuterol sulfate HFA 108 (90 Base) MCG/ACT inhaler 11/22/2015 documented as of this encounter H&P Notes * Vinny Casillas DO - 11/05/2022 6:19 AM CST This very [...] hesitate to contact me. Vinny Casillas DO TAIN SERVICES MANAGER documented in this encounter Nursing Notes * Damari Decker RN - 11/05/2022 2:26 PM CST This RN went to patient's room and she is no longer in the room. Deburrer was made aware. TAIN SERVICES MANAGER * Damari Decker RN - 11/05/2022 2:14 PM CST This RN spoke with patient's ride home, Yamile daughter, she stated she had to leave to take care of her child. Yamile was unsure if she would be able to pepper picker patient and would contact another family member [...] and attempting to find a ride home. TAIN SERVICES MANAGER documented in this encounter OR Notes * [...] explained in detail to the patient/power of finance attorney. These were understood, assumed and written consent was obtained. The risk and complications include, but are not limited to, hemorrhage, perforation, infection, blood transfusion surgery, and missed lesions. Anesthesia risks were explained by the department of anesthesiology. These include, but are not limited to, allergic reactions, cardiopulmonary arrest, heart attack, stoke, and infection. All question were answered and understood. Vinny Casillas DO TAIN SERVICES MANAGER documented in this encounter Plan of Treatment Not on file documented as of this encounter Procedures Procedure Name Priority Date/Time Associated Diagnosis Comments PROCEDURE GENERIC 11/05/2022 12: 51 PM MOUNTAIN SERVICES MANAGER COLONOSCOPY WITH BIOPSY 11/05/2022 12:14 PM MOUNTAIN SERVICES MANAGER Hx of polyps POCT GLUCOSE - iOculi DOCKED DEVICE Routine 11/05/2022 10:49 AM MOUNTAIN SERVICES MANAGER COLONOSCOPY Routine 11/05/2022 10:31 AM MOUNTAIN SERVICES MANAGER PATHOLOGY Routine 11/05/2022 12:00 AM MOUNTAIN SERVICES MANAGER documented in this encounter Results * PROCEDURE GENERIC (11/05/2022 12:51 PM MOUNTAIN SERVICES MANAGER) us Vinny Casillas DO [facility] Final Result * (ABNORMAL) POCT glucose (11/05/2022 10:49 AM MOUNTAIN SERVICES MANAGER) GLUCOSE POC 122(H) 70 - 99 mg/dL 11/05/2022 10:52 AM MOUNTAIN SERVICES MANAGER [facility] 11/05/2022 10:4 9 AM MOUNTAIN SERVICES MANAGER us Vinny Casillas POCT ORDERABLES - DEVICE Final Result [facility] 3 [facility] [place] [address], * Pathology (11/05/2022 12:00 AM MOUNTAIN SERVICES MANAGER) COPATH REPORT ?[facility] ? [address] ? [place] ??[address] ? [id number] ? Department of Pathology ? Pathology Report ? SURGICAL FINAL REPORT Patient Name: OGLE, NAYELI ? : 1965 (Age: 57) ?Location: [facility] Gender: F ?Collected Date: 11/05/2022 [facility] Rec #: [id number] ?Date Received: 11/05/2022 Date Reported: 11/06/2022 Provider: VINNY CASILLAS DO ?SHAWN DUNHAM MD ?BIJU WHYTE MD Specimen(s) Polyp, sigmoid colon Final Pathologic Diagnosis SIGMOID COLON, POLYP; BIOPSY: -HYPERPLASTIC POLYP Electronically Signed Out ? ROSELINE HUTCHINSON MD Pathologist [facility] Microscopic Description: Microscopic examination is performed, and the findings support the final diagnosis. Clinical History Hx of polyps Gross Description Received is a single formalin-filled container labeled with the patient's name (Nayeli Og), date of (1965) (collection time 11/05/2022 at 1258) and additionally labeled sigmoid polyp. ??The specimen consists of a single pink-sandoval to red-pink fragment of tissue measuring 0.4 cm in greatest dimension. The specimen is submitted in toto in cassette 1. ? :[facility] Billing Fee Code(s): 85857 [facility] TISSUE COLON STRUCTURE / Unknown 11/05/2022 12:58 PM MOUNTAIN SERVICES MANAGER Vinny Casillas DO PATHOLOGY/CYTOLOGY ORDERABLES F inal Result [facility] [address] [place] [address], documented in this encounter Visit Diagnoses Diagnosis Disease of thyroid gland Unspecified disorder of thyroid documented in this encounter Administered Medications Inactive Administered Medications - up to 3 most recent administrations Medication Order MAR Action Action Date Dose Rate Site lactated ringers infusion at 10 mL/hr, Intravenous, Continuous, Starting on Fri11/05/22 at 1130, Until Fri11/05/22 at 1629, Infuse at TKO rate, Pre-Op New Bag 11/05/2022 12:13 PM MOUNTAIN SERVICES MANAGER documented in this encounter Active and Recently Administered Medications Times are shown in MOUNTAIN SERVICES MANAGER. Continuous Medication Order 11/03/2022 11/04/2022 11/05/2022 lactated ringers infusion at 10 mL/hr, Intravenous, Continuous, Starting on Fri11/05/22 at 1130, Until Fri11/05/22 at 1629, Infuse at TKO rate, Pre-Op 1213 (New Bag - Prov ider: Inga Jordan CRNA)1302 (Infusion Stop Time - Provider: Inga Jordan CRNA) documented in this encounter Care Teams Investor Relations Coordinator Relationship Specialty Start Date End Date Biju Whyte MD [address] [place] [id number] PCP - General FAMILY PRACTICE 10/10/17 documented as of this encounter
--- OUTSIDE RECORDS SUMMARY | 2024-09-04 18:22 | XMS_ITS | Encounter Summary ---
Author Organization [facility] Address [facility] [place] [address] [place] [address] Care Team Providers Care Lockstitch Hemmer Name Role Phone Biju Whyte MD Primary Care Provider [phone] Reason for Referral * (Routine) - Closed Specialty Diagnoses / Procedures Referred By Contac t Referred To Contact Diagnoses COPD (chronic obstructive pulmonary disease) ([facility]) Procedures Pulmonary Function Test (scheduling) ([id number]) Yesica Tinsley MD Phone: tel: fax: Referral ID Status Reason Start Date Expiration Date Visits Re quested Visits Authorized [id number] Closed 09/29/2017 10/30/2018 1 1 FORCE DEVELOPMENT PROGRAM DIRECTOR Reason for Visit * (Routine) - Closed Specialty Diagnoses / Procedures Referred By Contac t Referred To Contact Diagnoses COPD (chronic obstructive pulmonary disease) ([facility]) Procedures Pulmonary Function Test (scheduling) ([id number]) Yesica Tinsley MD Phone: tel: fax: Referral ID Status Reason Start Date Expiration Date Visits Re quested Visits Authorized [id number] Closed 09/29/2017 10/30/2018 1 1 Encounter Details Date Type Department Care Team (Latest Contact Info) Description 10/13/2017 9:40 AM WORKFORCE DEVELOPMENT PROGRAM DIRECTOR - 10/13/2017 11:59 PM WORKFORCE DEVELOPMENT PROGRAM DIRECTOR Hospital Encounter [facility] [place] [address] Yesica Tinsley MD [address] [place] [address] Discharge Disposition: Home or Self Care (Routine Discharge) Social History Tobacco Use Types Packs/Day Years Used Date Smoking Tobacco: Never Assessed Comments Unknown Sex and Gender Information Value Date Recorded Sex Assigned at Not on file Legal Sex Female 8:02 PM CDT Gender Identity Not on file Sexual Orientation Not on file documented as of this encounter Medications at Time of Discharge Medication Sig Dispense Quantity Refills Last Filled Start D ate End Date albuterol (PROVENTIL) (2.5 MG/3ML) 0.083% nebulizer solution 11/22/2015 albuterol sulfate HFA 108 (90 Base) MCG/ACT inhaler 11/22/2015 documented as of this encounter Plan of Treatment Not on file documented as of this encounter Procedures Procedure Name Priority Date/Time Associated Diagnosis Comments PULMONARY FUNCTION TEST Routine 10/13/2017 9:40 AM WORKFORCE DEVELOPMENT PROGRAM DIRECTOR COPD (chronic obstructive pulmonary disease) ([facility] HHS/HCC) documented in this encounter Visit Diagnoses Diagnosis COPD (chronic obstructive pulmonary disease) ([facility]) Chronic airway obstruction, not elsewhere classified documented in this encounter Care Teams Lockstitch Hemmer Relationship Specialty Start Date End Date Biju Whyte MD [address] [place] [address] 3 [place] [address] PCP - General FAMILY PRACTICE 10/10/17 documented as of this encounter
--- OUTSIDE RECORDS SUMMARY | 2024-09-04 18:22 | XMS_ITS | Encounter Summary ---
Author Organization [facility] Address [facility] [place] [place] [address] [place] [address] Care Team Providers Care Car Hop Name Role Phone Biju Whyte MD Primary Care Provider [phone] Reason for Visit * Reason Comments Release Of Information Encounter Details Date Type Department Care Team ([facility] Contact Info) Description 09/04/2018 Scan HEALTH INFO SRVCS Scanned, Documents Release Of Information Social History Tobacco Use Types Packs/Day Years [...] on filedocumented in this encounter Care Teams Car Hop Relationship Specialty Start Date End Date Biju Whyte MD [address] [facility] [address] [place] [address] PCP - General FAMILY PRACTICE 10/10/17 documented as of this encounter
--- OUTSIDE RECORDS SUMMARY | 2024-09-04 18:22 | XMS_ITS | Encounter Summary ---
Author Organization [facility] Address [facility] [place] [address] [place] [address] Care Team Providers Care Bingo Floater Name Role Phone Biju Whyte MD Primary Care Provider [phone] Encounter Details Date Type Department Care Team (Latest Contact Info) Description 10/17/2017 2:05 PM LAUNDRY TECHNICIAN - 10/17/2017 11:59 PM LAUNDRY TECHNICIAN Hospital Encounter [facility] [place] [address] Yesica Tinsley MD [address] [place] [address] Discharge Disposition: Home or Self Care (Routine [...] A & B Routine 10/17/2017 2:30 PM LAUNDRY TECHNICIAN COPD (chronic obstructive pulmonary disease) ([facility]) documented in this encounter Results * INFLUENZA A & B, RAPID (10/17/2017 2:30 PM LAUNDRY TECHNICIAN) SPECIMEN TYPE NASAL 10/17/2017 2:59 PM LAUNDRY TECHNICIAN [facility] INFLUENZA A NEGATIVE NEGATIVE 10/17/2017 3:51 PM LAUNDRY TECHNICIAN [facility] INFLUENZA B NEGATIVE NEGATIVE 10/17/2017 3:51 PM LAUNDRY TECHNICIAN [facility] Comment: Interpretation: Negative for [...] NASOPHARYNGEAL SWAB / Unknown 10/17/2017 2:30 PM LAUNDRY TECHNICIAN us Yesica Tinsley MD MICROBIOLOGY - GENERAL ORDER JOEY Final Result [facility] [address] [place] [id number], documented in this encounter Visit Diagnoses Diagnosis COPD (chronic obstructive pulmonary disease) (CMS/HCC [facility]) Chronic airway obstruction, not elsewhere classified documented in this encounter Care Teams Bingo Floater Relationship Specialty Start Date End Date Biju Whyte MD [address] [address] PCP - General FAMILY PRACTICE 10/10/17 documented as of this encounter
--- OUTSIDE RECORDS SUMMARY | 2024-09-04 18:22 | XMS_ITS | Encounter Summary ---
Author Organization [facility] Address [facility] 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
--- OUTSIDE RECORDS SUMMARY | 2024-09-04 18:22 | XMS_ITS | Encounter Summary ---
Author Organization [facility] Address [facility] [place] [address] [place] [address] Care Team Providers Care Clerk Operator Name Role Phone Candice Lynch MD Primary Care Provider Unavailable Biju Whyte MD Primary Care Provider [phone] Encounter Details Date Type Department Care Team (Late st Contact Info) Description 03/19/2016 Abstract [facility] [address] [place] [address] Maria Ines Barr MD [address] [place] [address] Social History Tobacco Use Types Packs/Day Years Used Date Smoking Tobacco: Never Assessed Comments Unknown Sex and Gender Information Value Date Recorded Sex Assigned at Not on file Legal Sex Female 8:02 PM CDT Gender Identity Not on file Sexual Orientation Not on file documented as of this encounter Plan of Treatment Not on file documented as of this encounter Visit Diagnoses Diagnosis Encounter for disability determination Issue of medical certificate for disability examination documented in this encounter Care Teams Clerk Operator Relationship Specialty Start Date End Date Candice Lynch MD PCP - General 01/08/13 8 Biju Whyte MD [address] [facility] [address] [place] [address] PCP - General FAMILY PRACTICE 10/10/17 documented as of this encounter
--- OUTSIDE RECORDS SUMMARY | 2024-09-04 18:22 | XMS_ITS | Clinical Summary ---
Author Organization [facility] Address [facility] [place] [address] [place] [address] Care Team Providers Care Respiratory Physician Name Role Phone Biju Whyte MD Primary Care Provider [phone] Allergies Active Allergy Reactions Criticality Noted Date Comments Latex Rash,Unknown Medium 01/05/2016 Medications albuterol (PROVENTIL) (2.5 MG/3ML) 0.083% nebulizer solution 11/22/2015 Active albuterol sulfate HFA 108 (90 Base) MCG/ACT inhaler 11/22/2015 Act zeinab Active Problems Problem Noted Date Diagnosed Date Disease of thyroid gland 10/30/2022 Social History Tobacco Use Types Packs/Day Years [...] Comments Blood Pressure 97/63 11/05/2022 1:25 PM SUPERVISOR ENGRAVING Pulse 69 11/05/2022 1:25 PM SUPERVISOR ENGRAVING Temperature 36.1 ??C (96.9 ??F) 11/05/2022 12:[address] Respiratory Rate 11/05/2022 1:25 PM SUPERVISOR ENGRAVING Oxygen Saturation 95% 11/05/2022 1:25 PM SUPERVISOR ENGRAVING Inhaled Oxygen Concentration - - Weight 81.6 kg (180 lb) 10/30/2022 12:44 PM SUPERVISOR ENGRAVING Height 172.7 cm (5' 8 ) 10/30/2022 12:44 PM SUPERVISOR ENGRAVING Body Mass Index 27.37 10/30/2022 12:44 PM SUPERVISOR ENGRAVING Plan of Treatment Health Maintenance Due Date Last Done Comments Annual Physical 1967 Pneumococcal Vaccine: Pediatrics (0 to 5 Years) and At-Risk Patients (6 to 64 Years) (1 of 2 - PCV) 1970 Hepatitis C 1982 DTaP, Tdap and Td Vaccines ( 1 - Tdap) 1983 Mammogram Screening 2004 Zoster Vaccines (1 of 2) 2014 COVID-19 Vaccine (2 - 2023-2 5 season) 2024 11/14/2020 Influenza Adult (#1) 2024 09/08/2017 Colorectal Cancer Screening Colonoscopy (10 Years) 11/05/2032 11/05/2022, 11/05/2022 RSV Immunization or 60+ Years (1 - 1-dose 75+ series) 2039 Meningococcal Vaccine Aged Out No arian katina eligible based on patient's age to complete this topic RSV Immunizations Under 20 Months Aged Out No longer eligible b ased on patient's age to complete this topic Procedures Procedure Name Priority Date/Time Associated Diagnosis Comments COLONOSCOPY Routine 11/05/2022 10:31 AM SUPERVISOR ENGRAVING from Last 3 Months or Most Recently Relevant to Health Maintenance Insurance MEDICARE MEDICAID [facility] Care Teams Respiratory Physician Relationship Specialty Start Date End Date Biju Whyte MD [address] [phone] PCP - General FAMILY PRACTICE 10/10/17
--- OUTSIDE RECORDS SUMMARY | 2024-09-04 18:22 | XMS_ITS | Encounter Summary ---
Author Organization [facility] Address [facility] [place] [address] [place] [address] Care Team Providers Care Warhead Maintenance Specialist Name Role Phone Candice Lynch MD Primary Care Provider Unavailable Biju Whyte MD Primary Care Provider [phone] Encounter Details Date Type Department Care Team (Latest Contact Info) Description 08/05/[address] [facility] Social History Tobacco Use Types [...] on filedocumented in this encounter Care Teams Warhead Maintenance Specialist Relationship Specialty Start Date End Date Candice Lynch MD PCP - General 01/08/13 8 Biju Whyte MD [address] [facility] [address] [place] [address] PCP - General FAMILY PRACTICE 10/10/17 documented as of this encounter
--- OUTSIDE RECORDS SUMMARY | 2024-09-04 18:22 | XMS_ITS | Encounter Summary ---
Author Organization [facility] Address [address] [place] [address] Care Team Providers Care Inside Sales Lead Name Role Phone Unavailable Primary Care Provider Unavailabl e Encounter Details Date Type Department Care Team (Latest Contact Info) Description 08/23/2015 Hospital Outpatient Visit Historic [facility] [address] [place] [id number] Betito Jacinto MD [address] [place] [address] Rd [address] [place] [address] Discharge Disposition: Home or Self Care Social [...]
--- OUTSIDE RECORDS SUMMARY | 2024-09-04 18:22 | XMS_ITS | Encounter Summary ---
Author Organization [facility] Address [facility] [place] [address] [place] [address] Care Team Providers Care Mine Engineer Name Role Phone Biju Whyte MD Primary Care Provider [phone] Encounter Details Date Type Department Care Team (Latest Contact Info) Description 11/11/2017 Abstract [facility] Medical [facility] Social History Tobacco [...] on filedocumented in this encounter Care Teams Mine Engineer Relationship Specialty Start Date End Date Biju Whyte MD [address] [facility] 3 [place] [address] PCP - General FAMILY PRACTICE 10/10/17 documented as of this encounter
--- OUTSIDE RECORDS SUMMARY | 2024-09-04 18:22 | XMS_ITS | Encounter Summary ---
Author Organization [facility] Address [facility]6 [place] [address] [place] [address] Care Team Providers Care Dragger Out Name Role Phone Candice Lynch MD Primary Care Provider Unavailable Biju Whyte MD Primary Care Provider Encounter Details Date Type Department Care Team (Latest Contact Info) Description 08/11/2017 Abstract [facility] Medical [facility] Social History Tobacco [...] on filedocumented in this encounter Care Teams Dragger Out Relationship Specialty Start Date End Date Candice Lynch MD PCP - General 01/08/13 8 Biju Whyte MD [address] [facility] 3 [place] [address] PCP - General FAMILY PRACTICE 10/10/17 documented as of this encounter
--- OUTSIDE RECORDS SUMMARY | 2024-09-04 18:22 | XMS_ITS | Encounter Summary ---
Author Organization [facility] Address [facility] [facility] [place] [address] [place] [address] Care Team Providers Care General Repair Mechanic Name Role Phone Biju Whyte MD Primary Care Provider [phone] Encounter Details Date Type Department Care Team (Late st Contact Info) Description 12/26/2017 Abstract [facility] Multispecialty Care - [facility] [address] [facility], [address] [place] [id number] Yesica Tinsley MD [address] [facility] [address] [place] [address] Social History Tobacco Use Types Packs/Day Years Used Date Smoking Tobacco: Never Assessed Comments Unknown Sex and Gender Information Value Date Recorded Sex Assigned at Not on file Legal Sex Female 8:02 PM CDT Gender Identity Not on file Sexual Orientation Not on file documented as of this encounter Last Filed Vital Signs Vital Sign Reading Time Taken Comments Blood Pressure 104/56 12/26/2017 2:01 PM CDT Pulse 91 12/26/2017 2:01 PM CDT Temperature - - Respiratory Rate - - Oxygen Saturation - - Inhaled Oxygen Concentration - - Weight 84.8 kg (187 lb) 12/26/2017 2:01 PM CDT Height 172.7 cm (5' 8 ) 12/26/2017 2:01 PM CDT Body Mass Index 28.43 12/26/2017 2:01 PM CDT documented in this encounter Progress Notes * Yesica Tinsley MD - 12/26/2017 1:40 PM CDT Assessment 1. COPD (chronic obstructive pulmonary disease) (496) (J44.9) 2. Nicotine dependence (305.1) (F17.200) 3. Nocturnal hypoxia (327.24) (G47.34) Plan COPD (chronic obstructive pulmonary disease) 1. Follow-up visit in 4 months Outpatient Follow-up Status: Hold For - Scheduling Requested for: [id number] Ordered; For: COPD (chronic obstructive pulmonary disease); Ordered By: Yesica Tinsley Performed: Due: [id number] 2. Follow-up visit in 6 months Outpatient Follow-up Status: Hold For - Scheduling Requested for: [id number] Ordered; For: COPD (chronic obstructive pulmonary disease); Ordered By: Yesica Tinsley Performed: Due: [id number] Pt is a pleasant 52 yo female who is here for f/u. She has a history of COPD. She is a current smoker, we discussed the importance of smoking cessation. She has PFTs that show mild obstruction. She is just getting over a sinus infection. Zyrtec for allergic rhinitis. Continue Symbicort. Continue oxygen nocturnally. She did not require oxygen with exertion. She notes she did not tolerate Duonebs, just albuterol. Consider sleep study in the future. F/U 4-6 mo Chief Complaint Pt here for follow up. Smoking 1 ppd. No med changes, does not have rescue inhaler. 6 min walk testdone, did not qualify for O2. Complains of SOB when walking up stairs. History of Present Illness HPI Free Text: Pt is a pleasant 52 yo who is here for followup. Dx w Hodgkins 2014 and went into remission 1 year ago. Then dx w COPD. Previously saw fashion journalist. Dr. Mascorro used to come to [place] and needed to get new doctors,living w Daughter b/c old living situation bad w mold. Sent to ER recently for SOB and had CT w chronic fibrosis and emphysema She is smoking <1ppd Nose, sinuses,ears x 3 weeks. Drained ear. No abx. Feels better but still once a day, knife going thru back. Sometimes dizzy or sob for no reason. Symbicort started last visit, no difference. Uses nebs 1-2x/day Did not qualify for oxygen with exertion, using at night. - fevers +cough - chest pain; rare [...] about snoring. - Exercise, back limits her +allergies, zyrtec Inhalers: qvar and rescue Prior testing: CT chest recently Aneesh fibrosis, infiltrate emphysema PFTs [place] in last year. PFTs mild obstruction SH: + Smoking 1ppd; 35 years. 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 FH: Aunt and Grandma COPD and emphysema. [...] EVERY 4 TO 6 HOURS NEEDED; Therapy: [id number] to (Last Rx:[id number]) Requested for: [id number] Ordered 2. Albuterol Sulfate (2.5 MG/3ML) 0.083% Inhalation Nebulization Solution; Therapy: (Recorded:[id number]) to Recorded 3. Fosamax 10 MG TABS; Therapy: (Recorded:[id number]) to Recorded 4. PredniSONE 10 MG Oral Tablet; TAKE 4 TABLETS DAILY FOR 3 DAYS,3 TABLETS DAILY FOR 3 DAYS, 2 TABLETS DAILY FOR 3 DAYS AND 1 TABLET DAILY FOR 3 DAYS, THEN STOP; Therapy: 17Oct2017 to (Last Rx:17Oct2017) Requested for: [id number] Ordered 5. Symbicort 160-4.5 MCG/ACT Inhalation Aerosol; INHALE 2 PUFFS TWICE DAILY. RINSE MOUTH AFTER USE; Therapy: 17Oct2017 to (Last Rx:17Oct2017) Requested for: [id number] Ordered 6. Synthroid 50 MCG Oral Tablet; Therapy: (Recorded:[id number]) to Recorded Allergies 1. Codeine 2. Latex Exam Gloves [facility] [place] Recorded: 26Dec2017 02:01PM Heart Rate 91 Systolic 104 Diastolic 56 O2 Saturation 95 Height 5 ft 8 in Weight 187 lb BMI Calculated 28.43 BSA Calculated 1.99 Physical Exam Constitutional: awake, [...] Electronically signed by : Yesica Tinsley M.D.; Dec 31 2017 9:52PM LAND COMMISSIONER (Author) documented in this encounter Plan of Treatment Not on file documented as of this encounter Visit Diagnoses Not on filedocumented in this encounter Care Teams General Repair Mechanic Relationship Specialty Start Date End Date Biju Whyte MD [address] [place] [id number] PCP - General FAMILY PRACTICE 10/10/17 documented as of this encounter
--- OUTSIDE RECORDS SUMMARY | 2024-09-04 18:22 | XMS_ITS | Encounter Summary ---
Author Organization [facility] Address [facility]6 [facility] [place] [address] [place] [address] Care Team Providers Care Bait Digger Name Role Phone Biju Whyte MD Primary Care Provider [phone] Encounter Details Date Type Department Care Team (Latest Contact Info) Description 10/13/2017 Abstract [facility] Social History Tobacco Use [...] on filedocumented in this encounter Care Teams Bait Digger Relationship Specialty Start Date End Date Biju Whyte MD [address] [facility] [address] [place] [address] PCP - General FAMILY PRACTICE 10/10/17 documented as of this encounter
--- OUTSIDE RECORDS SUMMARY | 2024-09-04 18:22 | XMS_ITS | Encounter Summary ---
Author Organization [facility] Address [facility]6 [facility] [place] [address] [place] [address] Care Team Providers Care Nutritionist Name Role Phone Biju Whyte MD Primary Care Provider [phone] Encounter Details Date Type Department Care Team (Latest Contact Info) Description 10/20/2017 Abstract [facility] Medical [facility] Social History Tobacco Use [...] on filedocumented in this encounter Care Teams Nutritionist Relationship Specialty Start Date End Date Biju Whyte MD [address] [facility] 3 [place] [address] PCP - General FAMILY PRACTICE 10/10/17 documented as of this encounter
--- OUTSIDE RECORDS SUMMARY | 2024-09-04 18:22 | XMS_ITS | Encounter Summary ---
Author Organization [facility] Address [facility] [facility] [place] [address] [place] [address] Care Team Providers Care Coupon Collection Clerk Name Role Phone Candice Lynch MD Primary Care Provider Unavailable Biju Whyte MD Primary Care Provider Reason for Referral * (Routine) - Closed Specialty Diagnoses / Procedures Referred By Contac t Referred To Contact Diagnoses COPD (chronic obstructive pulmonary disease) ([facility]) Procedures Pulmonary Function Test (scheduling) ([id number]) Yesica Tinsley MD Phone: tel: fax: Referral ID Status Reason Start Date Expiration Date Visits Re quested Visits Authorized [id number] Closed 09/29/2017 10/30/2018 1 1 T BINDING WORKER Encounter Details Date Type Department Care Team (Late st Contact Info) Description 09/29/2017 Transcribe Orders [facility] [place] [address] Yesica Tinsley MD [address] [place] [address] Social History Tobacco Use Types Packs/Day Years Used Date Smoking Tobacco: Never Assessed Comments Unknown Sex and Gender Information Value Date Recorded Sex Assigned at Not on file Legal Sex Female 8:02 PM CDT Gender Identity Not on file Sexual Orientation Not on file documented as of this encounter Plan of Treatment Not on file documented as of this encounter Visit Diagnoses Diagnosis COPD (chronic obstructive pulmonary disease) ([facility])- Primary Chronic airway obstruction, not elsewhere classified documented in this encounter Care Teams Coupon Collection Clerk Relationship Specialty Start Date End Date Candice Lynch MD PCP - General 01/08/13 8 Biju Whyte MD [address] [place] [id number] PCP - General FAMILY PRACTICE 10/10/17 documented as of this encounter
--- OUTSIDE RECORDS SUMMARY | 2024-09-04 18:22 | XMS_ITS | Encounter Summary ---
Author Organization [facility] Address [facility] [place] [address] [place] [address] Care Team Providers Care Buffing Wheel Raker Name Role Phone Candice Lynch MD Primary Care Provider Unavailable Biju Whyte MD Primary Care Provider [phone] Encounter Details Date Type Department Care Team (Late st Contact Info) Description 04/12/[address] [facility] [address] [place] [id number] Sonja Ochoa MD Social History Tobacco Use [...] sites documented in this encounter Care Teams Buffing Wheel Raker Relationship Specialty Start Date End Date Candice Lynch MD PCP - General 01/08/13 8 Biju Whyte MD [address] [facility] 3 [place] [address] PCP - General FAMILY PRACTICE 10/10/17 documented as of this encounter
--- OUTSIDE RECORDS SUMMARY | 2024-09-04 18:22 | XMS_ITS | Encounter Summary ---
Author Organization [facility] Address [facility] [facility] [place] [address] [place] [address] Care Team Providers Care Billing Manager Name Role Phone Candice Lynch MD Primary Care Provider Unavailable Biju Whyte MD Primary Care Provider Encounter Details Date Type Department Care Team (Latest Contact Info) Description 09/04/2017 Abstract [facility] Medical Group Social History Tobacco [...] on filedocumented in this encounter Care Teams Billing Manager Relationship Specialty Start Date End Date Candice Lynch MD PCP - General 01/08/13 8 Biju Whyte MD [address] [facility] 3 [place] [address] PCP - General FAMILY PRACTICE 10/10/17 documented as of this encounter
--- OUTSIDE RECORDS SUMMARY | 2024-09-04 18:25 | XMS_ITS | Encounter Summary ---
Author Organization [facility] [employer] Address [address] [place] [address] Care Team Providers Care Brass Reclaimer Name Role Phone Biju Whyte MD Primary Care Provider [phone] Encounter Details Date Type Department Care Team (Late st Contact Info) Description 10/17/2020 Orders Only [facility] Oncology and Hematology - [place] [address] [address] Shannan Gallegos ANP NO ADDRESS ON FILE Hodgkin lymphoma, unspecified, lymph nodes of head, face, and neck Social History Tobacco Use Types Packs/Day Years Used Date Smoking Tobacco: Every Day Cigarettes 1 37 Smokeless Tobacco: Never Alcohol Use Standard Drinks/Week Comments Never 0 (1 standard drink = 0.6 oz pur e alcohol) Sex and Gender Information Value Date Recorded Sex Assigned at Not on file Gender Identity Not on file Sexual Orientation Not on file COVID-19 Exposure Response Date Recorded In the last month, have you been in contact with someone who was confirmed or suspected to have Coronavirus / COVID-19? No / Unsure 10/16/2020 10:34 AM PRODUCE SERVICE TEAM MEMBER documented as of this encounter Plan of Treatment Not on file documented as of this encounter Visit Diagnoses Diagnosis Hodgkin lymphoma, unspecified, lymph nodes of head, face, and neck documented in this encounter Care Teams Brass Reclaimer Relationship Specialty Start Date End Date Biju Whyte MD PCP - General Emergency Medicine 05/28/19 documented as of this encounter
--- OUTSIDE RECORDS SUMMARY | 2024-09-04 18:25 | XMS_ITS | Encounter Summary ---
Author Organization [facility] Address [address] [place] [address] Care Team Providers Care Client Service Representative Name Role Phone Biju Whyte MD Primary Care Provider Reason for Visit * Reason Onset Date Comments Results 04/24/2020 Encounter Details Date Type Department Care Team (Late st Contact Info) Description 04/24/2020 Telephone [facility] ONCOLOGY AND HEMATOLOGY - [place] [address] [address] Shannan Gallegos ANP NO ADDRESS ON FILE Results Social History Tobacco Use Types Packs/Day Years [...] have Coronavirus / COVID-19? No / Unsure 04/21/2020 10:50 AM CDT documented as of this encounter Miscellaneous Notes * Telephone Encounter - Shannan Gallegos ANP - 04/24/2020 2:50 PM CDT Notified patient regarding CMP results, remarkable for mildly elevated transaminases (chronic), normal bilirubin. Suspect related to known fatty liver. Recommended she follow-up with GI for further management/monitoring. Patient verbalized understanding. documented in this encounter Plan of Treatment Not on file documented as of this encounter Visit Diagnoses Not on filedocumented in this encounter Care Teams Client Service Representative Relationship Specialty Start Date End Date Biju Whyte MD PCP - General Emergency Medicine 05/28/19 documented as of this encounter
--- OUTSIDE RECORDS SUMMARY | 2024-09-04 18:25 | XMS_ITS | Clinical Summary ---
Author Organization [facility] [employer] [facility] Address [address] [place] [address] Care Team Providers Care Environment Friendly Landscape Designer Name Role Phone Biju Whyte MD Primary Care Provider [phone] Allergies Active Allergy Reactions Criticality Noted Date Comments Codeine Nausea and Vomiting,Unknown Low 01/05/20 16 Latex Rash,Unknown Medium 01/05/2016 Medications Medication Sig Dispensed Refills Start Date End Date Status atorvastatin calcium (LIPITOR ORAL) Take by mouth. Active aspirin (ECOTRIN EC) 81 mg Tablet, Delayed Release (E.C.) Take 81 mg by mouth daily. Active pantoprazole sodium (PROTONIX ORAL) Take by mouth. Activ e TRUEPLUS LANCETS 33 gauge TEST BID AND BEFORE LARGEST MEAL 09/22/2019 Active ipratropium-albuterol (DUONEB) 0.5 mg-3 mg(2.5 mg base)/3 mL Solution for Nebulization U 3 ML VIA NEB Q 6 H 09/20/2019 Active VASCEPA 1 gram Capsule TK 2 CS PO BID B MEALS 09/22/2019 Active ergocalciferol (VITAMIN D2) 50,000 unit capsule TK 1 C PO Q WK IN THE MORNING 08/20/2019 Active JARDIANCE 25 mg tablet TK 1 T PO QD IN THE MORNING 09/22/2019 Active Cholecalciferol, Vitamin D3, 3,000 unit Tablet every 24 hours. Active TRUE METRIX GLUCOSE TEST STRIP Strip 09/22/2019 Active VENTOLIN HFA 90 mcg/actuation inhaler USE 2 PUFFS PO Q 6 H PRN 08/24/2019 Active fenofibrate (LOFIBRA) 160 mg Tablet fenofibrate 160 mg tablet TK 1 T PO QHS 01/11/2019 Active levothyroxine 112 mcg tablet levothyroxine 112 mcg tablet Active fenofibrate nanocrystallized (TRICOR) 145 mg tablet Take by mouth. 07/02/2018 Active exenatide microspheres (Bydureon BCise) 2 mg/0.85 mL Auto-Injector Bydureon BCise 2 mg/0.85 mL subcutaneous auto-injector INJECT 2 MG UNDER THE SKIN EVERY WEEK DIRECTED Active evolocumab (Repatha SureClick) 140 mg/mL Pen Injector 1 mL. Active alirocumab (Praluent Pen) 75 mg/mL Pen Injector 150 mg/mL. Active blood sugar diagnostic (True Metrix Glucose Test Strip) Strip True Metrix Glucose Test Strip TEST BID Active mlhrwyxfza-lyqlhdfs-ak rmoterol 160-9-4.8 mcg/actuation HFA Aerosol Inhaler Breztri Aerosphere 160 mcg-9mcg-4.8mcg/act uation HFA aerosol inhaler Active alendronate (FOSAMAX) 35 mg tablet alendronate 35 mg tablet Active Active Problems Problem Noted Date Diagnosed Date COPD (chronic obstructive pulmonary disease) Lung nodule 04/21/2020 Osteoporosis 04/21/2020 Hypothyroidism 04/21/2020 Hodgkin lymphoma, unspecifie d, lymph nodes of head, face, and neck 10/18/2019 Family History Medical History Relation Name Comments Diabetes Father Relation Name Status Comments Father Alive Mother Alive Sister 1 Alive Sister 2 Alive Social History Tobacco Use Types Packs/Day Years [...] Sign Reading Time Taken Comments Blood Pressure 111/76 04/16/2021 9:55 AM CDT Pulse 80 04/16/2021 9:55 AM CDT Temperature 37 ??C (98.6 ??F) 04/16/2021 9:55 AM CDT Respiratory Rate - - Oxygen Saturation 94% 04/16/2021 9:55 AM CDT Inhaled Oxygen Concentration - - Weight 89.5 kg (197 lb 4.8 oz) 04/16/2021 9:55 A M CDT Height 172.7 cm (5' 8 ) 04/16/2021 9:55 AM CDT Body Mass Index 30 04/16/2021 9:55 AM CDT Plan of Treatment Health Maintenance Due Date Last Done Comments PNEUMOCOCCAL VACCINE 0-64 YE ARS (1 of 2 - PCV) 1970 DTAP/TDAP/TD VACCINES (1 - Tdap) 1983 ZOSTER VACCINE (1 of 2) 1983 BREAST CANCER SCREENING 2004 FIT-DNA Q 3 years 2009 FIT/FOBT Q 1 year 2009 Flex Sig/CT Colonography Q 5 years 2009 CERVICAL CANCER SCREENING 07/27/2022 07/27/2019 INFLUENZA VACCINE (#1) 2024 RSV VACCINE (60+ or ) (1 - Risk 60-74 years 1-dose series) 2024 COLORECTAL SCREENING 09/17/2027 09/17/2017 Colorectal Cancer Screening 09/17/2027 Lung Cancer Screening Discontinued 06/10/2019 HEPATITIS B VACCINES Aged Out No long er eligible based on patient's age to complete this topic Procedures Procedure Name Priority Date/Time Associated Diagnosis Comments CT LUNG SCREENING (LDCT BASELINE OR ANNUAL) Routine 06/10/2019 Encounter for screening for lung cancer from Last 3 Months or Most Recently Relevant to Health Maintenance Results * CT LUNG SCREENING (06/10/2019) Anatomical Region Laterality Modality Chest Other Elio Castellanos MD CT ORDERABLES from Last 3 Months or Most Recently Relevant to Health Maintenance Care Teams Environment Friendly Landscape Designer Relationship Specialty Start Date End Date Biju Whyte MD PCP - General Emergency Medicine 05/28/19
--- OUTSIDE RECORDS SUMMARY | 2024-09-04 18:25 | XMS_ITS | Encounter Summary ---
Author Organization [facility] [employer] Address [address] [place] [address] Care Team Providers Care Meat And Poultry Inspector Name Role Phone Biju Whyte MD Primary Care Provider [phone] Encounter Details Date Type Department Care Team (Late st Contact Info) Description 04/19/2021 Orders Only [facility] Oncology and Hematology - [place] [address] [facility] [address] [place] [address] Elio Castellanos MD [address] [facility] [address] [place] [address] Hodgkin lymphoma, unspecified, lymph nodes of head, [...] have Coronavirus / COVID-19? No / Unsure 04/16/2021 9:32 AM CDT documented as of this encounter Plan of Treatment Not on file documented as of this encounter Procedures Procedure Name Priority Date/Time Associated Diagnosis Comments BASIC METABOLIC PANEL Routine 04/16/2021 documented in this encounter Results * BASIC METABOLIC PANEL (04/16/2021) Blood Abstract Provider CHEMISTRY ORDERABLES documented in this encounter Visit Diagnoses Diagnosis Hodgkin lymphoma, unspecified, lymph nodes of head, face, and neck documented in this encounter Care Teams Meat And Poultry Inspector Relationship Specialty Start Date End Date Biju Whyte MD PCP - General Emergency Medicine 05/28/19 documented as of this encounter
--- OUTSIDE RECORDS SUMMARY | 2024-09-04 18:25 | XMS_ITS | Encounter Summary ---
Author Organization [facility] [employer] Address [address] [place] [address] Care Team Providers Care Last Turner Name Role Phone Biju Whyte MD Primary Care Provider [phone] Reason for Visit * Reason Comments Follow Up 6 MONTH F/U WITH LAB S Encounter Details Date Type Department Care Team (Late st Contact Info) Description 04/16/2021 9:45 AM CDT Office Visit [facility] Oncology and Hematology - Aneesh [address] [facility] [address] [place] [address] Elio Castellanos MD [address] [facility] [address] [place] [address] Hodgkin lymphoma, unspecified, lymph nodes of head, face, and neck (Primary Dx); Encounter for screening for lung cancer Social History Tobacco Use Types Packs/Day Years [...] AM CDT documented as of this encounter Last Filed [...] Mass Index 30 04/16/2021 9:55 AM CDT documented in this encounter Progress Notes * Elio Castellanos MD - 04/16/2021 10:33 AM CDT HEMATOLOGY / ONCOLOGY PROGRESS NOTE Patient Identification: Name: Nayeli Og Age: 55 y.o. 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 She denies any weight loss. She has occasional night sweats. No bleeding and bruising. No other new complaints. Review of system Constitutional: denies fevers, occasional night sweats, weight is stable HEENT: denies sinus congestion, hearing or vision problems Respiratory: denies cough, dyspnea, wheeze Cardiovascular: denies chest pain, exertional chest pressure/discomfort, nausea, syncope, shortnessof breath GI: denies constipation, diarrhea, dsyphagia, reflux symptoms, vomiting, melena : denies dysuria, frequency, incontinence, urgency Integumentary system: no lymphadenopathy, sweats, flushing Musculoskeletal: No musculoskeletal discomfort Neurological: denies blurry or disturbed vision, numbness/weakness, dizziness Skin: No lumps, bumps or rashes. 12 point review system was reviewed and as above Objective: Vital signs in last 24 hours: As per nursing note Exam: General appearance: alert, cooperative, no distress, appears stated age Head: normocephalic, without obvious abnormality, atraumatic Eyes: conjunctivae/corneas clear, EOM's intact Ears: normal external ear canals AU Nose: Nares normal. Septum midline. Mucosa normal. No drainage or sinus tenderness Throat: Lips, mucosa, and tongue normal. Teeth and gums normal Neck: supple, symmetrical, trachea midline. Lungs: clear to auscultation bilaterally Heart: regular rate and rhythm, S1, S2 normal, no murmur, click, rub or gallop Abdomen: soft, non-tender. Bowel sounds normal. No masses, No organomegaly Extremities: extremities normal, atraumatic, no cyanosis or edema Skin: Skin color, texture, turgor normal. No rashes or lesions Lymph nodes: No lymphadenopathy Neuro: No obvious focal deficit Examination as above PATH LABS Labs from June 03 showed WBC 10.0 hemoglobin 13.4 platelet 381,000 neutrophils 68% lymphocyte 18% with few atypical lymphocytes calcium 10.5 LDH 447 creatinine 0.6 AST 38 ALT 60 Labs from October 18 showed WBC 7.4 hemoglobin 14.7 platelet 398,000 creatinine 0.6. Labs from October 16, 2020 showed WBC 8.3 hemoglobin 15.2 platelet 373,000 Labs from April 16 showed WBC 8.7 hemoglobin 14.5 platelet 301,000 creatinine 0.6 Assessment: Plan: Patient Active Problem List Diagnosis Date Noted ??? COPD (chronic obstructive pulmonary disease) 04/21/2020 ??? Lung nodule 04/21/2020 ??? Osteoporosis 04/21/2020 ??? Hypothyroidism 04/21/2020 ??? Hodgkin lymphoma, unspecified, lymph nodes of head, face, and neck 10/18/2019 Hodgkin lymphoma stage IIIb nodular sclerosis subtype status post chemotherapy with BRANDT regimen completed in November 2015 and then EBRT to the right neck completed in February 2016. Labs stable. There is no evidence of relapse of disease on my examination. I will see her back in 9months. Abnormal mammogram. Biopsy was attempted in December but unsuccessful. Repeat diagnostic mammogram will be ordered in next couple of months. Patient will follow with Dr. Brumfield. History of elevated liver enzyme. Secondary to hepatic steatosis. CMP is pending. Osteoporosis. Patient will continue Fosamax. Hypercalcemia. Calcium level is pending. Lung cancer screening. We will order repeat 1 year follow-up for screening in June 2021. Follow-up in 9 months. TOBACCO COUNSELING She was counseled to discontinue tobacco use. 04/16/2021 Elio Castellanos MD documented in this encounter Plan of Treatment Scheduled Orders Name Type Priority Associated Diagnoses Orde r Schedule CBC WITH DIFFERENTIAL Lab Stat Hodgkin lymphoma, unspecified, lymph nodes of head, face, and neck Expected: 04/16/2021, Expires: 04/16/2022 documented as of this encounter Visit Diagnoses Diagnosis Hodgkin lymphoma, unspecified, lymph nodes of head, face, and neck- Primary Encounter for screening for lung cancer documented in this encounter Care Teams Last Turner Relationship Specialty Start Date End Date Biju Whyte MD PCP - General Emergency Medicine 05/28/19 documented as of this encounter
--- OUTSIDE RECORDS SUMMARY | 2024-09-04 18:25 | XMS_ITS | Clinical Summary ---
Author Organization [facility] Address [address], [facility] [address] [place] [address] Phone Care Team Providers Care Jig Filler Name Role Phone Mikel Gibbons MD Primary Care Provider [phone] Allergies Active Allergy Reactions Criticality Noted Date Comments Codeine Unknown 01/05/2016 Latex Unknown 01/05/2016 Medications zolpidem (AMBIEN) 10 MG Tablet 0 6 Active pantoprazole (PROTONIX) 40 MG Tablet Delayed Response 1 6 Active albuterol (PROVENTIL, VENTOLIN) (2.5 MG/3ML) 0.083% Nebulizer Soln 6 6 Active VENTOLIN HFA 108 (90 BASE) MCG/ACT Aerosol Solution 2 6 Active QVAR 80 MCG/ACT Aerosol Solution 0 6 Active ibuprofen (MOTRIN) 400 MG Tablet 2 6 Active ipratropium (ATROVENT) 0.02 % Solution 6 6 Active COMPOUNDED MEDICATION Take 5-10 mL by mouth 4 times daily as needed. for mouth/throat discomfort. Pharmacist Mixture Instructions *ALUM & MAG HYDROXIDE-SIMETH 200-200-20 MG/5ML PO SUSP -- 360 mL *DIPEHENHYDRAMIN E HCL 12.5 MG/5ML PO ELIX -- 50 mL *LIDOCAINE VISCOUS 2% MT SOLN -- 80 mL 490 mL 3 6 Active HYDROcodone-jackie taminophen (NORCO) 5-325 MG Tablet Take 1-2 Tabs by mouth every 6 hours as needed for Pain. 30 Tab 0 6 Active ALPRAZolam (XANAX) 0.5 MG Tablet Take 0.5 Tabs by mouth 3 times daily as needed. 30 Tab 0 6 Active prochlorperazin e (COMPAZINE) 10 MG Tablet Take 10 mg by mouth every 6 hours as needed. Active Cholecalciferol (VITAMIN D PO) Take by mouth. Active Levothyroxine Sodium (SYNTHROID PO) Take by mouth. Active raNITIdine (ZANTAC) 150 MG Tablet Take 150 mg by mouth 2 times daily. Active Active Problems Problem Noted Date Diagnosed Date Nodular sclerosis Hodgkin ly mphoma of lymph nodes of multiple regions 01/04/2016 Family History Medical History Relation Name Comments High Cholesterol Father Hypertension Father Arthritis Mother Cataract Mother Thyroid Disease Sister 1 Relation Name Status Comments Father Alive Mother Alive Sister 1 Alive Sister 2 Alive Social History Tobacco Use Types Packs/Day Years Used Date Smoking Tobacco: Every Day Cigarettes 1 40 Smokeless Tobacco: Never Tobacco Cessation:Ready to Q uit: No; Counseling Given: Yes Alcohol Use Standard Drinks/Week Comments Yes 0 (1 standard drink = 0.6 oz pur e alcohol) Comments No Sex and Gender Information Value Date Recorded Sex Assigned at Not on file Legal Sex Female 11:22 AM CDT Gender Identity Not on file Sexual Orientation Not on file Last Filed Vital Signs Vital Sign Reading Time Taken Comments Blood Pressure 114/86 08/16/2016 11:42 AM CERTIFIED ORTHOPTIST Pulse 82 08/16/2016 11:42 AM CERTIFIED ORTHOPTIST Temperature 36.6 ??C (97.9 ??F) 08/16/2016 11:[address] Respiratory Rate 16 08/16/2016 11:42 AM CERTIFIED ORTHOPTIST Oxygen Saturation 98% 08/16/2016 11:42 AM CERTIFIED ORTHOPTIST Inhaled Oxygen Concentration - - Weight 80.8 kg (178 lb 3.2 oz) 08/16/2016 11:42 AM CERTIFIED ORTHOPTIST Height 172.7 cm (5' 8 ) 08/16/2016 11:42 AM CERTIFIED ORTHOPTIST Body Mass Index 27.1 08/16/2016 11:42 AM CERTIFIED ORTHOPTIST Plan of Treatment Health Maintenance Due Date Last Done Comments Hepatitis C Virus (HCV) Screening 1965 TdaP Immunization 1965 SARS-COV-2 Immunization (#1) 1969 Pneumococcal Immunization Co mbined (1 of 2 - PCV) 1970 Hepatitis B Immunization (1 of 3 - 19+ 3-dose series) 1983 Zoster Immunization (1 of 2) 1983 Colonoscopy 2009 Colorectal Cancer Screening 2009 Cologuard 2014 Immunochemical Fecal Occult Blood 2014 Mammogram 2014 Influenza Immunization (#1) 2024 Meningococcal Immunization (ACWY) Aged Out No longer eligible based on patient's age to complete this topic Rotavirus Immunization Aged Out No lo nger eligible based on patient's age to complete this topic Insurance [place]ICAID [place] Care Teams Jig Filler Relationship Specialty Start Date End Date Mikel Gibbons MD [address] [place] [address] PCP - General Family Medicine 04/19/16
--- OUTSIDE RECORDS SUMMARY | 2024-09-04 18:25 | XMS_ITS | Encounter Summary ---
Author Organization [facility] Address [address] [place] [address] Care Team Providers Care Patient Services Technician Name Role Phone Biju Whyte MD Primary Care Provider [phone] Reason for Visit * Reason Comments Follow Up 6 month f/u with lab s Encounter Details Date Type Department Care Team (Late st Contact Info) Description 10/16/2020 10:45 AM DOG CONTROL OFFICER Office Visit [facility] Oncology and Hematology - Aneesh [address] [facility] [address] [place] [address] Elio Castellanos MD [address] [facility] [address] [place] [address] Hodgkin lymphoma, unspecified, lymph nodes of head, face, and neck (Primary Dx) Social History Tobacco Use Types Packs/Day Years [...] COVID-19? No / Unsure 10/16/2020 10:34 AM DOG CONTROL OFFICER documented as of this encounter Last Filed Vital Signs Vital Sign Reading Time Taken Comments Blood Pressure 97/63 10/16/2020 10:59 AM DOG CONTROL OFFICER Pulse 85 10/16/2020 10:59 AM DOG CONTROL OFFICER Temperature 36.6 ??C (97.8 ??F) 10/16/2020 1 0:59 AM DOG CONTROL OFFICER Respiratory Rate - - Oxygen Saturation 94% 10/16/2020 10: 59 AM DOG CONTROL OFFICER 3 liters at night Inhaled Oxygen Concentration - - Weight 88.2 kg (194 lb 8 oz) 10/16/2020 10:59 AM DOG CONTROL OFFICER Height 172.7 cm (5' 8 ) 10/16/2020 10:5 9 AM DOG CONTROL OFFICER Body Mass Index 29.57 10/16/2020 10:59 AM DOG CONTROL OFFICER documented in this encounter Progress Notes * Elio Castellanos MD - 10/16/2020 11:44 AM CST HEMATOLOGY / ONCOLOGY PROGRESS NOTE Patient Identification: Name: Nayeli Og Age: 55 y.o. 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 She lost 3 pound weight. Denies any new lumps lymphadenopathy. No abdominal pain. She continues to smoke almost 1 pack/day. No other new complaints. Review of system Constitutional: denies fevers, sweats, fatigue, malaise, 3 pound weight loss HEENT: denies sinus congestion, hearing or vision [...] showed WBC 8.3 hemoglobin 15.2 platelet 373,000 Assessment: Plan: Patient Active Problem List Diagnosis [...] the right neck completed in February 2016. There is no evidence of relapse of disease on my examination. Labs are stable. I will see her back in 6 months. Elevated liver enzyme. Abdominal ultrasound done September 18, 2020 showed hepatic steatosis. Abnormal mammogram. Patient recommended to have a right breast diagnostic mammogram as a screening mammogram showed abnormal calcifications. Lung cancer screening. CT chest done on June 2020 came back benign findings. Osteoporosis. Patient is on Fosamax. Hypercalcemia. Calcium level is pending from today. TOBACCO COUNSELING She was counseled to discontinue tobacco use. 10/16/2020 Elio Castellanos MD CONTROL OFFICER documented in this encounter Plan of Treatment Scheduled Orders Name Type Priority Associated Diagnoses Orde r Schedule COMPREHENSIVE METABOLIC PANEL Lab Routine Hodgkin lymphoma, unspecified, lymph nodes of head, face, and neck Expected: 04/16/2021, Expires: 10/16/2021 documented as of this encounter Visit Diagnoses Diagnosis Hodgkin lymphoma, unspecified, lymph nodes of head, face, and neck- Primary documented in this encounter Care Teams Patient Services Technician Relationship Specialty Start Date End Date Biju Whyte MD PCP - General Emergency Medicine 05/28/19 documented as of this encounter
--- OUTSIDE RECORDS SUMMARY | 2024-09-04 18:25 | XMS_ITS | Encounter Summary ---
Author Organization [facility] Address [address] [facility] Attn: Epic Prelude ADT [place] [address] Care Team Providers Care Mold Laminator Name Role Phone Biju Whyte MD Primary Care Provider [phone] Encounter Details Date Type Department Care Team (Latest Contact Info) Description 04/16/2021 Travel Social History Tobacco Use Types Packs/Day [...] on filedocumented in this encounter Care Teams Mold Laminator Relationship Specialty Start Date End Date Biju Whyte MD PCP - General Emergency Medicine 05/28/19 documented as of this encounter
--- OUTSIDE RECORDS SUMMARY | 2024-09-04 18:25 | XMS_ITS | Encounter Summary ---
Author Organization [facility] Address [address] [place] [address] Care Team Providers Care Sheet Metal Installer Name Role Phone Biju Whyte MD Primary Care Provider [phone] Encounter Details Date Type Department Care Team (Late st Contact Info) Description 04/17/2021 Orders Only [facility] Oncology and Hematology - Aneesh [address] [place] [address] Codie Denny Hodgkin lymphoma, unspecified, lymph nodes of head, [...] neck documented in this encounter Care Teams Sheet Metal Installer Relationship Specialty Start Date End Date Biju Whyte MD PCP - General Emergency Medicine 05/28/19 documented as of this encounter
--- OUTSIDE RECORDS SUMMARY | 2024-09-04 18:25 | XMS_ITS | Encounter Summary ---
Author Organization [employer] [facility] Address [address] [facility] Attn: Epic Prelude ADT [place] [address] Care Team Providers Care Oil Changer Name Role Phone Biju Whyte MD Primary Care Provider [phone] Encounter Details Date Type Department Care Team (Latest Contact Info) Description 10/16/2020 Travel Social History Tobacco Use Types Packs/Day [...] COVID-19? No / Unsure 10/16/2020 10:34 AM ATMOSPHERIC SCIENTIST documented as of this encounter Plan of Treatment Not on file documented as of this encounter Visit Diagnoses Not on filedocumented in this encounter Care Teams Oil Changer Relationship Specialty Start Date End Date Biju Whyte MD PCP - General Emergency Medicine 05/28/19 documented as of this encounter
--- OUTSIDE RECORDS SUMMARY | 2024-09-04 18:25 | XMS_ITS | Encounter Summary ---
Author Organization [facility] Address [address] [place] [address] Care Team Providers Care Medical Anthropologist Name Role Phone Biju Whyte MD Primary Care Provider [phone] Encounter Details Date Type Department Care Team (Late st Contact Info) Description 06/30/2020 Orders Only [facility] Oncology and Hematology - Aneesh [address] [id number] Shannan Gallegos ANP NO ADDRESS ON FILE Chronic obstructive pulmonary disease, unspecified COPD type; Lung nodule Social History Tobacco Use Types Packs/Day Years [...] Name Priority Date/Time Associated Diagnosis Comments CT CHEST WO CONTRAST Routine 06/12/2020 Chronic obstructive pulmonary disease, unspecified COPD type Lung nodule documented in this encounter Results * CT CHEST WO CONTRAST (06/12/2020) Anatomical Region Laterality Modality Chest Other Shannan Gallegos ANP CT ORDERABLES documented in this encounter Visit Diagnoses Diagnosis Chronic obstructive pulmonary disease, unspecified COPD type Lung nodule Solitary pulmonary nodule documented in this encounter Care Teams Medical Anthropologist Relationship Specialty Start Date End Date Biju Whyte MD PCP - General Emergency Medicine 05/28/19 documented as of this encounter
--- OUTSIDE RECORDS SUMMARY | 2024-09-04 18:25 | XMS_ITS | Encounter Summary ---
Author Organization [facility] Address [address] [place] [address] Care Team Providers Care Vocational Rehabilitation Supervisor Name Role Phone Biju Whyte MD Primary Care Provider [phone] Reason for Visit * Reason Onset Date Comments Chest CT results 06/30/2020 Encounter Details Date Type Department Care Team (Late st Contact Info) Description 06/30/2020 Telephone [facility] Oncology and Hematology - Aneesh [address] [place] [address] [address] Shannan Gallegos ANP NO ADDRESS ON FILE Chest CT results Social History Tobacco Use Types Packs/Day Years [...] Telephone Encounter - Shannan Gallegos ANP - 06/30/2020 4:27 PM CDT Notified patient regarding surveillance chest CT dated 06/12/2020 was negative for malignancy, stable 12 mm pleural-based RLL nodule was again seen and favors scarring or infection. Patient verbalizedunderstanding. Repeat in 1 year. documented in this encounter Plan of Treatment Not on file documented as of this encounter Visit Diagnoses Not on filedocumented in this encounter Care Teams Vocational Rehabilitation Supervisor Relationship Specialty Start Date End Date Biju Whyte MD PCP - General Emergency Medicine 05/28/19 documented as of this encounter
--- OUTSIDE RECORDS SUMMARY | 2024-09-04 18:26 | XMS_ITS | Encounter Summary ---
Author Organization [facility] [employer] Address [address] [place] [address] Care Team Providers Care Railroad Yard Worker Name Role Phone Biju Whyte MD Primary Care Provider [phone] Reason for Referral * CT Scan (Routine) - Closed Specialty Diagnoses / Procedures Referred By Dione beatty Referred To Contact Diagnoses Encounter for screening for lung cancer Procedures CT LUNG SCREENING CT CHEST F/U LDCT LUNG SCREEN W CONTRAST Elio Castellanos MD [address] [place] [id number] Carla De La Cruz RN Referral ID Status Reason Start Date Expiration Date Visits Requested Visits Authorized [id number] Closed STL Interventional 06/03/2019 07/03/2020 1 1 Reason for Visit * Reason Comments Establish Care FIBREGLASS LAY UP WORKER NON HOGKIN LYMPHO MA Encounter Details Date Type Department Care Team (Late st Contact Info) Description 06/03/2019 10:00 AM CDT Office Visit [facility] Oncology and Hematology - [place] [address] [place], [place] [address] [address] [place] [address] Elio Castellanos MD [address] [place] [address] Hodgkin lymphoma of lymph nodes of neck, unspecified Hodgkin lymphoma type (Primary Dx); Encounter for screening for lung [...] Sign Reading Time Taken Comments Blood Pressure 115/77 06/03/2019 10:08 AM CDT Pulse 88 06/03/2019 10:08 AM CDT Temperature 36.9 ??C (98.4 ??F) 06/03/2019 10:08 AM C DT Respiratory Rate - - Oxygen Saturation 94% 06/03/2019 10:08 AM CDT Inhaled Oxygen Concentration - - Weight 91 kg (200 lb 9.6 oz) 06/03/2019 10:08 AM CDT Height 172.7 cm (5' 8 ) 06/03/2019 10:08 AM CDT Body Mass Index 30.5 06/03/2019 10:08 AM CDT documented in this encounter Progress Notes * Elio Castellanos MD - 06/03/2019 12:37 PM CDT Hematology-oncology consult Note Requesting Physician Biju Whyte MD Primary Care Physician Biju Whyte MD Problem list There is no problem list on file for this patient. Previous TREATMENT ? Measurable Disease ? Reason for Visit Nayeli Og is a 54 y.o. female who was referred for consultation for Hodgkin's lymphoma History of present illness This is a 54-year-old female who was diagnosed to have nodular sclerosis Hodgkin lymphomastage IIIB in 2015. Bone marrow biopsy was incomplete. She received chemotherapy with BRANDT regimen x6 completed in November 2015. Bleomycin was not given due to poor lung function. She had a TOYIN to right neck completed in February. Patient had right submandibular gland biopsy done that came back positive for chronic sialoadenitis. She was last seen by about 2 years ago. She came into the office for establishing care with us. She denies any new lumps bumps or lymphadenopathy. Her weight and appetite stable. Deniesany night sweats fevers and chills. He continues to smoke 1 pack/day for 37 years duration. Past Medical History Past Medical History: Diagnosis Date ??? COPD (chronic obstructive pulmonary disease) ??? Diabetes mellitus ??? High cholesterol ??? Stroke Hypothyroidism Hyperparathyroidism Osteoporosis Osteoarthritis Surgical History Past Surgical History: Procedure Laterality Date ??? BIOPSY BONE MARROW ??? HX CARDIAC SURGERY ??? HX HAND SURGERY ??? HX HERNIA REPAIR ??? HX HYSTERECTOMY ??? HX NECK SURGERY ??? HX DEBORAH FUNDOPLICATION ??? HX SUBMANDIBULAR GLAND EXCISION Medications Current Outpatient Medications Medication Sig Dispense Refill ??? levothyroxine sodium (SYNTHROID ORAL) Take by mouth. ??? atorvastatin calcium (LIPITOR ORAL) Take by mouth. ??? alendronate sodium (FOSAMAX ORAL) Take by mouth. ??? FENOFIBRATE ORAL Take by mouth. ??? metformin HCl (METFORMIN ORAL) Take by mouth. ??? aspirin (ECOTRIN EC) 81 mg Tablet, Delayed Release (E.C.) Take 81 mg by mouth daily. ??? pantoprazole sodium (PROTONIX ORAL) Take by mouth. No current facility-administered medications for this visit. Allergies No Known Allergies Immunizations: There is no immunization history on file for this patient. Family History Family History Problem Relation Name Age of Onset ??? Diabetes Father Social History Social History Tobacco Use ??? Smoking status: Current Every Day Smoker Packs/day: 1.00 Years: 37.00 Pack years: 37.00 ??? Smokeless tobacco: Never Used Substance Use Topics ??? Alcohol use: Never Frequency: Never Review of Systems Constitutional: No fever; no night sweats; no anorexia; no weight loss; no fatique NEENT: No headache; no change in vision; no change in hearing; no sore throat; no dysphagia Respiratory: No shortness of breath; no pleuritic chest pain; no cough; no hemoptysis Cardiac: No cardiac-like chest pain; no palpitations; no orthopnea; no PND; no BRAUN Breasts: No tenderness; no masses GI: No abdominal pain; no nausea; no vomiting; no diarrhea; no hematochezia; no melena : No dysuria; no frequency; no hesitancy; no hematuria CHROME TANNER: Musculosketetal: no bone pain; no arthralgia; no joint swelling; no myalgia; Skin: no pruritis; no rash; no petechiae; no ecchymoses Endocrine: no polydipsia; no polyuria; no unusual weight gain Neuro: No headache; no change in vision; no sensory changes; no muscle weakness; no confusion; no seizures Psych: no anxiety; no depression; Physical Exam Vitals: As per nursing note Constitutional: Well developed, well nourished, no acute distress, non-toxic appearance Teeth and gum. No signs of infection or swelling. Eyes: PERRL, conjunctiva normal HEENT: Atraumatic, external ears normal, nose normal, oropharynx moist, no pharyngeal exudates. no sinus tenderness Neck- normal range of motion, no tenderness, supple Respiratory: No respiratory distress, normal breath sounds, no rales, no wheezing Cardiovascular: Normal rate, normal rhythm, no murmurs, no gallops, no rubs GI: Soft, nondistended, normal bowel sounds, nontender, no splenomegaly, no hepatomegaly, no mass, no rebound, no guarding : No costovertebral angle tenderness Musculoskeletal: No edema, no tenderness, no deformities. Back- no tenderness Integument: Well hydrated, no rash, Digits and nails inspection normal Lymphatic: No lymphadenopathy noted Neurologic: Alert & oriented x 3, CN 2-12 normal, normal motor function, normal sensory function, no focal deficits noted Psychiatric: Speech and behavior appropriate ? labs No results found for this or any previous visit (from the past 24 hour(s)). Pathology ? Imaging & Other Studies Performance Status? Assessment / Plan: ? Hodgkin lymphoma stage IIIB nodular sclerosis subtype. Patient initial bone marrow biopsy was incomplete. Patient received chemotherapy with BRANDT regimen x6 completed in November 2015. Bleomycin was avoided due to poor lung function. Patient also received EBRT to the right neck completed in February 2016.She was last seen by in May 2016. There is no evidence of relapse of disease onmy examination. She is clinically asymptomatic without any B symptoms. No imaging studies needed based on NCCN guidelines. I will order labs that would include CBC, CMP and LDH. Patient will be back to see me in 1 week. Lung cancer screening. Patient is 54-year-old with history of smoking 1 pack/day for 37 years duration. I will order low-dose CT scan for cancer screening. Thank you very much for allowing me to participate in Nayeli Og's evaluation and management. Please feel free to contact if I can be of any further assistance in your patient???s care requiring hematology or oncology evaluation. Sincerely, ? ? Elio Castellanos M.D. cell TOBACCO COUNSELING She was counseled to discontinue tobacco use. Elio Castellanos MD ,06/03/2019 12:37 PM ? Total time spent 80 minutes, two third of the total time spent counseling patient [id number]. CC:?Biju Whyte MD documented in this encounter Plan of Treatment Not on file documented as of this encounter Procedures Procedure Name Priority Date/Time Associated Diagnosis Comments CBC WITH DIFFERENTIAL Routine 06/03/2019 Hodgkin lymphoma of lymph nodes of neck, unspecified Hodgkin lymphoma type LACTATE DEHYDROGENASE Routine 06/03/2019 Hodgkin lymphoma of lymph nodes of neck, unspecified Hodgkin lymphoma type COMPREHENSIVE METABOLIC PANEL Routine 06/03/2019 Hodgkin lymphoma of lymph nodes of neck, unspecified Hodgkin lymphoma type documented in this encounter Results * CT LUNG SCREENING (06/10/2019) Anatomical Region Laterality Modality Chest Other Elio Castellanos MD CT ORDERABLES * LACTATE DEHYDROGENASE (06/03/2019) Blood Elio Castellanos MD CHEMISTRY ORDERABLES EXTERNAL LAB * CBC WITH DIFFERENTIAL (06/03/2019) Blood Elio Castellanos MD HEMATOLOGY ORDERABLE S EXTERNAL LAB * COMPREHENSIVE METABOLIC PANEL (06/03/2019) Blood Elio Castellanos MD CHEMISTRY ORDERABLES EXTERNAL LAB documented in this encounter Visit Diagnoses Diagnosis Hodgkin lymphoma of lymph nodes of neck, unspecified Hodgkin lymphoma type- Primary Encounter for screening for lung cancer documented in this encounter Care Teams Railroad Yard Worker Relationship Specialty Start Date End Date Biju Whyte MD PCP - General Emergency Medicine 05/28/19 documented as of this encounter
--- OUTSIDE RECORDS SUMMARY | 2024-09-04 18:26 | XMS_ITS | Encounter Summary ---
Author Organization [facility] [employer] Address [address] [place] [address] Care Team Providers Care Honing Machine Operator Semiautomatic Name Role Phone Biju Whyte MD Primary Care Provider [phone] Reason for Visit * Reason Comments Follow Up CT FU W LABS Encounter Details Date Type Department Care Team (Late st Contact Info) Description 06/17/2019 10:15 AM CDT Office Visit [facility] Oncology and Hematology - [place] [address] [facility] [address] [place] [address] Elio Castellanos MD [address] [facility] [address] [place] [address] Hodgkin lymphoma of lymph nodes of neck, unspecified Hodgkin lymphoma type (Primary Dx) Social History Tobacco Use Types [...] Sign Reading Time Taken Comments Blood Pressure 127/77 06/17/2019 9:55 AM CDT Pulse 88 06/17/2019 9:55 AM CDT Temperature 36.7 ??C (98 ??F) 06/17/2019 9:55 AM CDT Respiratory Rate - - Oxygen Saturation 93% 06/17/2019 9:55 AM CDT Inhaled Oxygen Concentration - - Weight 91.6 kg (202 lb) 06/17/2019 9:55 AM CDT Height 172.7 cm (5' 8 ) 06/17/2019 9:55 AM CDT Body Mass Index 30.71 06/17/2019 9:55 AM CDT documented in this encounter Progress Notes * Elio Castellanos MD - 06/17/2019 10:25 AM CDT HEMATOLOGY / ONCOLOGY PROGRESS NOTE Patient Identification: Name: Nayeli Og Age: 54 y.o. Sex: female : 1965 DIAGNOSIS Hodgkin lymphoma stage IIIB nodular sclerosis subtype diagnosed in 2015 CURRENT TREATMENT Expectant TREATMENT HISTORY BRANDT x6 completed in November 2015 (bleomycin was avoided due to poor lung function) EBRT to right neck completed in February 2016 SUBJECTIVE Patient came into the office for follow-up visit. She denies any chest pain and shortness of breath. Denies any night sweats fevers and chills. Denies any new lumps bumps or lymphadenopathy. No othernew complaints. Review of system Constitutional: denies fevers, sweats, fatigue, malaise, weight loss HEENT: denies sinus congestion, hearing or vision problems Respiratory: denies cough, dyspnea, wheeze Cardiovascular: denies chest pain, exertional chest pressure/discomfort, nausea, syncope, shortnessof breath GI: denies constipation, diarrhea, dsyphagia, reflux symptoms, vomiting, melena : denies dysuria, frequency, incontinence, urgency Integumentary system: no lymphadenopathy, sweats, flushing Musculoskeletal: denies: myalgia, arthralgia Neurological: denies blurry or disturbed vision, numbness/weakness, dizziness Skin: No lumps, bumps or rashes. Objective: Vital signs in last 24 hours: [...] No lymphadenopathy Neuro: No obvious focal deficit PATH LABS Labs from June 03 showed WBC 10.0 hemoglobin 13.4 platelet 381,000 neutrophils 68% lymphocyte 18% with few atypical lymphocytes calcium 10.5 LDH 447 creatinine 0.6 AST 38 ALT 60 @IMAGEIMP@ Assessment: Plan: There are no active problems to display for this patient. Hodgkin lymphoma stage IIIb nodular sclerosis subtype status post chemotherapy with BRANDT regimen completed in November 2015 and then EBRT to the right neck completed in February 2016. No evidence of relapseof disease on my examination. Labs are stable. LDH normal. There was mild atypical lymphocytes. I will repeat CBC in 4 months. No evidence of lymphadenopathy. Hypercalcemia. Patient has history of hyperparathyroidism. She will continue to follow with Dr. Isidra Sahni. Osteoporosis. Patient is going to have bone density testing done in July 2019. She is on Fosamax. Elevated AST and ALT. I have recommended her to discontinue taking Tylenol and take Aleve if neededfor arthritis. Lung cancer screening. CT chest for screening was done showed lungs-RADcategory 2. We will repeat CT scan in 12 months. ? TOBACCO COUNSELING She was counseled to discontinue tobacco use. 06/17/2019 Elio Castellanos MD documented in this encounter Plan of Treatment Not on file documented as of this encounter Results * CBC WITH DIFFERENTIAL (10/18/2019) Blood Elio Castellanos MD HEMATOLOGY ORDERABLE S EXTERNAL LAB * COMPREHENSIVE METABOLIC PANEL (10/18/2019) Blood Elio Castellanos MD CHEMISTRY ORDERABLES EXTERNAL LAB documented in this encounter Visit Diagnoses Diagnosis Hodgkin lymphoma of lymph nodes of neck, unspecified Hodgkin lymphoma type- Primary documented in this encounter Care Teams Honing Machine Operator Semiautomatic Relationship Specialty Start Date End Date Biju Whyte MD PCP - General Emergency Medicine 05/28/19 documented as of this encounter
--- OUTSIDE RECORDS SUMMARY | 2024-09-04 18:26 | XMS_ITS | Encounter Summary ---
Author Organization [facility] Address [address] [place] [address] Care Team Providers Care Quarry Worker Name Role Phone Biju Whyte MD Primary Care Provider [phone] Reason for Visit * Reason Comments O2 recert Encounter Details Date Type Department Care Team ([facility] st Contact Info) Description 03/29/2020 1:30 PM CDT Office Visit [facility] Pulmonology [address] [place] [address] April Worthy MD [address] [place] [address] Nocturnal hypoxia (Primary Dx); Simple chronic bronchitis (CMS/HCC); Smoking Social History Tobacco Use Types Packs/Day Years Used Date Smoking Tobacco: Every Day Cigarettes 1 30 Smokeless Tobacco: Never Comments:03/09/19: Used to smo ke up to 2ppd Comments Unknown Sex and Gender Information Value Date Recorded Sex Assigned at Not on file 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 Gender Identity Not on file Sexual Orientation Not on file documented as of this encounter Last Filed Vital Signs Vital Sign Reading Time Taken Comments Blood Pressure 116/76 03/29/2020 1:19 PM CDT Pulse 96 03/29/2020 1:19 PM CDT Temperature 36.8 ??C (98.3 ??F) 03/29/2020 1:19 PM CD T Respiratory Rate 20 03/29/2020 1:19 PM CDT Oxygen Saturation 99% 03/29/2020 1:19 PM CDT Inhaled Oxygen Concentration - - Weight 83.9 kg (185 lb) 03/29/2020 1:19 PM CDT Height - - Body Mass Index 28.13 09/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 female. Visit Date: 03/29/2020 I am seeing this patient in consultation, requested by Biju Whyte MD for COPD Chief Complaint Patient presents with ??? O2 recert History of Present Illness: Patient is a 54-year-old female with past medical history of COPD, nocturnal hypoxia requiring 3 L of supplemental oxygen at night, Hodgkin's lymphoma in remission for the last 3 years and osteopenia. Patient is a smoker and has smoked 1 pack per day for 35 years and continue to smoke.Currently sheis on Symbicort and p.r.n. albuterol inhaler. ?[facility] FVC of 4.30 L which is 108% of predicted, FEV1 of 2.65 L which is 84% of predicted, FEV1 to FVC ratio of 62, total lung capacity is 5.27 L which is 92% of predicted, residual volume of 0.96 L which is 46% of predicted,DLCO of 8.5 mL/mmHg per minute which is 34% of predicted. PFT's show mild obstructive ventilatory defect. Lung volumes are normal. Gas exchange capacity is severely reduced. ?2D echocardiogram done on August 13, 2018 show the left ventricle is normal in size and function. Ejection fraction is 60% to 65%. The right ventricle is normal in size and function. E/E prime ratio is 9 which is in the indeterminate range. Currently she is using Symbicort 2 puffs b.i.d. And albuterol twice a day. She is still smoking. Alpha-1 antitrypsin level is normal. CT scan of the chest done in January 2019 show, There is severe centrilobular emphysema in the mid to upper lungs. A small component of paraseptal emphysema is also present bilaterally. There is a tiny partially calcified nodule in the periphery of the left upper lobe on image 39, most consistent with a granuloma. Increased area of bandlike scarring along the right middle lobe, abutting the diaphragm. The focal area described as a possible 1.5 cm mass in the base of the right lower lobe correspondsto either a small focal diaphragmatic defect or a focal area of subpleural fat deposition. This finding is benign, unchanged, and requires no additional follow-up or workup. There are no suspicious lung nodules. No pneumonic consolidation. The airway is widely patent. Since her last visit her symptoms have been pretty well controlled. Unfortunately she is still smoking. Overnight pulse oximetry done on March 01, 2020 shows he her oxygen saturation was less than 88 for 99 minutes with lowest SpO2 of 81%. Past Medical History: Past Medical History: Diagnosis Date ??? COPD (chronic obstructive pulmonary disease) (CMS/HCC) ??? Hodgkin lymphoma (CMS/HCC) ??? Hypothyroidism ??? Nocturnal hypoxia ??? Osteoarthritis ??? Pulmonary nodule Surgical History: Past Surgical History: Procedure Laterality Date ??? APPENDECTOMY ??? BREAST BIOPSY Bilateral ??? HERNIA REPAIR ??? HIATAL HERNIA REPAIR ??? HYSTERECTOMY ??? DEBORAH FUNDOPLICATION Current Medications: Current Outpatient Medications Medication Sig Dispense Refill ??? alendronate (FOSAMAX) 70 mg tablet TAKE 1 TABLET BY MOUTH EVERY WEEK 0 ??? aspirin 81 mg enteric coated tablet daily ??? blood glucose diagnostic (True Metrix Glucose Test Strip) strip ??? docosahexanoic acid/epa (FISH OIL ORAL) Take by mouth ??? empagliflozin (Jardiance) 25 mg tablet Jardiance 25 mg tablet TK 1 T PO QD IN THE MORNING ??? ergocalciferol (VITAMIN D) 50,000 unit capsule TK 1 C PO Q WK IN THE MORNING ??? fenofibrate (TRIGLIDE) 160 mg tablet ??? fluticasone propionate (FLONASE) 50 mcg/actuation nasal spray fluticasone propionate 50 mcg/actuation nasal spray,suspension ??? ibuprofen (ADVIL,MOTRIN) 400 mg tablet ??? icosapent ethyL (Vascepa) 1 gram capsule Vascepa 1 gram capsule TAKE 2 CAPSULES BY MOUTH TWICE DAILY BEFORE MEALS ??? ipratropium-albuterol (DUO-NEB) 0.5-2.5 mg/3 mL nebulizer solution Take 3 mL by nebulization every 6 (six) hours 1080 mL 3 ??? lancets (TRUEplus Lancets) 33 gauge misc TEST BID AND BEFORE LARGEST MEAL ??? levothyroxine (SYNTHROID) 100 mcg tablet daily ??? metFORMIN XR (GLUCOPHAGE XR) 500 mg 24 hr tablet ??? pantoprazole DR (PROTONIX) 40 mg EC tablet pantoprazole 40 mg tablet,delayed release TK 1 T PO QD ??? rosuvastatin (CRESTOR) 40 mg tablet rosuvastatin 40 mg tablet Take 1 tablet(s) every day by oral route at bedtime for 30 days. ??? Symbicort 160-4.5 mcg/actuation inhaler INHALE 2 PUFFS BY MOUTH TWICE DAILY. RINSE MOUTH AFTER USE 1 Inhaler 3 ??? Ventolin HFA 90 mcg/actuation inhaler INHALE 2 PUFFS BY MOUTH EVERY 6 HOURS NEEDED 54 g 0 No current facility-administered medications for this visit. Allergies: Allergies Allergen Reactions ??? Latex Unknown and Rash ??? Codeine Unknown and Nausea And Vomiting Family History: Family History Problem Relation Age of Onset ??? Lung cancer Maternal Grandfather ??? Bone cancer Maternal Grandfather Social History: Social History Socioeconomic History ??? Marital status: Spouse name: None ??? Number of children: None ??? Years of education: None ??? Highest education level: None Occupational History ??? None Social Needs ??? Financial resource strain: None ??? Food insecurity Worry: None Inability: None ??? Transportation needs Medical: None Non-medical: None Tobacco Use ??? Smoking status: Current Every Day Smoker Packs/day: 1.00 Years: 30.00 Pack years: 30.00 Types: Cigarettes ??? Smokeless tobacco: Never Used ??? Tobacco comment: 03/09/19: Used to smoke up to 2ppd Substance and Sexual Activity ??? Alcohol use: None ??? Drug use: None ??? Sexual activity: None Lifestyle ??? Physical activity Days per week: None Minutes per session: None ??? Stress: None Relationships ??? Social connections Talks on phone: None Gets together: None Attends pentecostalism service: None Active member of club or organization: None Attends meetings of clubs or organizations: None Relationship status: None ??? Intimate partner violence Fear of current or ex partner: None Emotionally abused: None Physically abused: None Forced sexual activity: None Other Topics Concern ??? None Social History Narrative ??? None Review of Systems: Review of Systems Constitutional: Negative for activity change, appetite change, chills, diaphoresis, fatigue, fever and unexpected weight change. HENT: Negative for congestion, nosebleeds, postnasal drip, rhinorrhea, sinus pressure, sinus pain, sneezing, trouble swallowing and voice change. Eyes: Negative for discharge and itching. Respiratory: Negative for apnea, cough, choking, chest tightness, shortness of breath, wheezing andstridor. Cardiovascular: Negative for chest pain, palpitations and leg swelling. Gastrointestinal: Negative for abdominal distention and abdominal pain. Endocrine: Negative for cold intolerance, heat intolerance, polydipsia, polyphagia and polyuria. Genitourinary: Negative for difficulty urinating, dysuria and enuresis. Musculoskeletal: Negative for arthralgias, back pain and gait problem. Allergic/Immunologic: Negative for environmental allergies, food allergies and immunocompromised state. Neurological: Negative for speech difficulty, light-headedness and numbness. Hematological: Negative for adenopathy. Does not bruise/bleed easily. Psychiatric/Behavioral: Negative for agitation, behavioral problems, confusion and sleep disturbance. Physical Exam: Vitals: 03/29/20 1319 BP: 116/76 Pulse: 96 Resp: 20 Temp: 36.8 ??C (98.3 ??F) SpO2: 99% Weight: 83.9 kg (185 lb) Physical Exam Constitutional: Appearance: She is well-developed. HENT: Head: Normocephalic and atraumatic. Nose: Nose normal. Eyes: General: No scleral icterus. Right eye: No discharge. Left eye: No discharge. Conjunctiva/sclera: Conjunctivae normal. Pupils: Pupils are equal, round, and reactive to light. Neck: Musculoskeletal: Normal range of motion and neck supple. Thyroid: No thyromegaly. Trachea: No tracheal deviation. Cardiovascular: Rate and Rhythm: Normal rate. Heart sounds: No murmur. No friction rub. No gallop. Pulmonary: Effort: Pulmonary effort is normal. No respiratory distress. Breath sounds: Normal breath sounds. No wheezing or rales. Chest: Chest wall: No tenderness. Abdominal: General: Bowel sounds are normal. There is no distension. Palpations: Abdomen is soft. Tenderness: There is no abdominal tenderness. Musculoskeletal: Normal range of motion. General: No tenderness or deformity. Lymphadenopathy: Cervical: No cervical adenopathy. Skin: General: Skin is warm and dry. Neurological: Mental Status: She is alert and oriented to person, place, and time. Cranial Nerves: No cranial nerve deficit. Motor: No abnormal muscle tone. Coordination: Coordination normal. Psychiatric: Behavior: Behavior normal. Data Reviewed Images: Echocardiogram: Labs: CBC w/auto diff: Lab Results Component Value Date WBC 8.5 09/15/2019 WBC 8.5 09/15/2019 RBC 4.94 09/15/2019 RBC 4.94 09/15/2019 HGB 13.9 09/15/2019 HGB 13.9 09/15/2019 HCT 43.5 09/15/2019 HCT 43.5 09/15/2019 MCV 88.1 09/15/2019 MCV 88.1 09/15/2019 MCH 28.1 09/15/2019 MCH 28.1 09/15/2019 MCHC 32.0 (L) 09/15/2019 MCHC 32.0 (L) 09/15/2019 MPV 8.7 (L) 09/15/2019 MPV 8.7 (L) 09/15/2019 NRBC 0.0 09/15/2019 NRBCABS 0.00 09/15/2019 CMP results: Lab Results Component Value Date SODIUM 140 04/23/2019 POTASSIUM 4.1 04/23/2019 CO2 23 04/23/2019 GLUCOSE 98 04/23/2019 CREATININE 0.6 04/23/2019 CALCIUM 9.4 04/23/2019 CHLORIDE 106 04/23/2019 ALBUMIN 4.7 04/07/2019 AST 16 04/07/2019 ALT 26 04/07/2019 ALKPHOS 103 04/07/2019 BILITOT 0.2 04/07/2019 PROT 7.8 04/07/2019 ANIONGAP 11 04/23/2019 Assessment and Plan: Diagnoses and all orders for this visit: Nocturnal hypoxia (Primary) Assessment & Plan: Overnight pulse oximetry shows significant desaturations. Will recertify her for 3 L of supplemental oxygen at night. Simple chronic bronchitis (CMS/HCC) Assessment & Plan: Continue with Symbicort, duo nebs and p.r.n. albuterol inhaler. Smoking Assessment & Plan: Patient was advised to quit smoking. She is scheduled for repeat CT scan of the chest for lung cancer screening before her next visit. Rendering Provider & Department: April Worthy MD documented in this encounter Miscellaneous Notes * Assessment & Plan Note - April Worthy MD - 03/29/2020 1:34 PM CDT Associated Problem(s): Smoking Patient was advised to quit smoking. She is scheduled for repeat CT scan of the chest for lung cancer screening before her next visit. * Assessment & Plan Note - April Worthy MD - 03/29/2020 1:34 PM CDT Associated Problem(s): COPD (chronic obstructive pulmonary disease) ([facility]) Continue with Symbicort, duo nebs and p.r.n. albuterol inhaler. * Assessment & Plan Note - April Worthy MD - 03/29/2020 1:34 PM CDT Associated Problem(s): Nocturnal hypoxia Overnight pulse oximetry shows significant desaturations. Will recertify her for 3 L of supplemental oxygen at night. documented in this encounter Plan of Treatment Not on file documented as of this encounter Visit Diagnoses Diagnosis Nocturnal hypoxia- Primary Simple chronic bronchitis (HCC) Simple chronic bronchitis Smoking Tobacco use disorder documented in this encounter Care Teams Quarry Worker Relationship Specialty Start Date End Date Biju Whyte MD PCP - General Emergency Medicine 12/03/18 documented as of this encounter
--- OUTSIDE RECORDS SUMMARY | 2024-09-04 18:26 | XMS_ITS | Data Portability ---
Author Organization [place] [facility] [employer] OFFICE Address [address] [place] [address] Care Team Providers Care Hand Cell Tuber Name Role Phone LOUIE MCCOLLUM Primary Care Provider [phone] Assessment Encounter Date Assessment Date Assessment LastModified by Organization Details LastModified Time 03/08/2019 03/08/2019 CLEMENT Dawson perfomred physical reviewed history and iscussed with patient findings, diagnosis, and prognosis. Discussed evaluation and treatment options including risks and benefits with patient and discussed the same with Dr. Medina who agrees with the plan and assessment. and patient expressed understanding. The following interventions were recommended: heart healthy low-fat, low-sodium diet, avoid strenuous exercise pending completion of cardiovascular evaluation, maintain appropriate weight, continue current medications, and medical follow-up as noted. [email or web address] Not available 03/08/2019 18:12:42 04/07/2019 04/07/2019 The following interventions were recommended: heart healthy low-fat, low-sodium diet, avoid strenuous exercise pending completion of cardiovascular evaluation, maintain appropriate weight, continue current medications, and medical follow-up as noted. [email or web address] Not available 04/07/2019 12:23:52 04/28/2019 04/28/2019 The following interventions were recommended: heart healthy low-fat, low-sodium diet, avoid strenuous exercise pending completion of cardiovascular evaluation, maintain appropriate weight, continue current medications, and medical follow-up as noted. [email or web address] Not available 04/28/2019 12:18:06 Plan of Treatment Reminders Order Date Submit Date Provider Last Modified By Organization Details Last Modified Time Details Appointments None recorded. Lab None recorded. Referral None recorded. Procedures None recorded. Surgeries None recorded. Imaging None recorded. Medication Orders aspirin 81 mg tablet,de layed release 2018 019 INTERFACE [id number], [address] [facility], [place], [place], [id number], 9 12:25:58 Patient Targets Encounter Date Encounter Id Patient Goals Patient Target Last Modified By Organization Details Last Modified Time Scribed by CLEMENT Montoya Not available 03/08/2019 18:17:07 Patient Instructions Encounter Date Encounter Id Patient Instructions Last Modified By Organization Details Last Modified Time 03/08/2019 [id number] high cholesterol : care instructions [email or web address] Not available 03/08/2019 21:59:15 04/07/2019 [id number] high cholesterol : care instructions Not available 04/07/2019 12:25:52 04/28/2019 [id number] high cholesterol : care instructions [email or web address] Not available 04/28/2019 12:38:30 Reason for Referral None Reported. Results Created Date Observation Date Name Description Value Unit Range Abnormal Flag Note LastModifiedBy Organization Detail LastModifiedTime 03/12/20 19 02/24/2019 alix ovalles am No observ ation record ed. Not Available 03/12 12:40:29 03/16/20 19 07/30/2017 US, thyro id No observ ation record ed. [email or web address] Not Available 03/16 16:42:05 03/16/20 19 08/13/2018 US, echoc ardio gram No observ ation record ed. [email or web address] Not Available 03/16 16:46:44 04/07/20 19 03/30/2019 kary can cardi olite stres s test (PROC ) No observ ation record ed. [email or web address] Not Available 2019 08:58:32 04/12/20 19 03/30/2019 kary can cardi olite stres s test (PROC ) No observ ation record ed. [email or web address] Not Available 2018 15:07:38 04/19/20 19 02/24/2019 elect rocar diogr am No observ ation record ed. [email or web address] Not Available 04/19 17:46:03 Result Notes None recorded. Problems Name Problem SNOMED Code Status Onset Date Resolution Date Notes Provider Name and Address Organization Details Recorded Time Hyperlipidemia 99785857 Active 2018 Shruthi Garcia [facility] 9 16:20:20 Diabetes mellitus 20774509 [facility] 16:20:36 Asthma 452496988 Active 2018 Shruthi Garcia [facility] 9 16:20:44 Dyspnea on exertion 37942869 Active 2018 Artis Medina [facility] 9 16:56:39 Problem Notes None recorded. Procedures Surgical History Date Name Laterality Status Provider Name and Address Organization Details Recorded Time Hernia Repair completed Shruthi Garcia [facility] 03/08/2019 16:19:46 Imaging Results Imaging Date Name Status LastModified by Organization Details LastModified Time 02/24/2019 electrocardiogram completed [email or web address] Informa tion not available 03/12/2019 12:40:29 07/30/2017 US, thyroid completed [email or web address] Information n ot available 03/16/2019 16:42:05 08/13/2018 US, echocardiogram completed [email or web address] Inform ation not available 03/16/2019 16:46:44 03/30/2019 lexiscan cardiolite stress test (PROC) completed Information not available 05/02/2020 08:58:32 03/30/2019 lexiscan cardiolite stress test (PROC) completed [email or web address] Information not available 04/12/2019 15:07:38 02/24/2019 electrocardiogram completed Informa tion not available 04/19/2019 17:46:03 Procedure Notes None recorded. Medical Equipment None Reported. Allergies No known drug allergies Medications Name Sig Start Date Stop Date Status Note LastModified by Organization Details LastModified Time cyclobenzap rine 10 mg tablet 03/08 completed Not Available Not Available Not Available Fosamax 5 mg tablet Take 1 tablet every day by oral route as directed. active Not Available Not Available No t Available atorvastati n 80 mg tablet active Not Available Not Available Not Available Protonix 40 mg tablet,fransisco yed release Take 1 tablet every day by oral route as directed. active Not Available Not Available No t Available oxybutynin chloride ER 10 mg tablet,exte nded release 24 hr 03/08 completed Not Available Not Available Not Available pravastatin 40 mg tablet 03/08 completed Not Available Not Available Not Available prednisone 20 mg tablet active Not Available Not Available Not Available alendronate 70 mg tablet 03/08 completed Not Available Not Available Not Available aspirin 81 mg tablet,fransisco yed release Take 1 tablet every day by oral route. 2018 active Not Available Not Available Not Avai lable levothyroxi ne 75 mcg tablet 03/08 completed Not Available Not Available Not Available meloxicam 7.5 mg tablet 03/08 completed Not Available Not Available Not Available levothyroxi ne 100 mcg tablet Take 1 tablet every day by oral route as directed for 30 days. active Not Available Not Available No t Available oxycodone-a cetaminophe n 5 mg-325 mg tablet 03/08 completed Not Available Not Available Not Available bupropion HCl 100 mg tablet Take 1 tablet twice a day by oral route as directed for 90 days. active Not Available Not Available No t Available levothyroxi ne 88 mcg tablet 03/08 completed Not Available Not Available Not Available Lipitor 40 mg tablet Take 1 tablet every day by oral route as directed. active Not Available Not Available No t Available omeprazole 20 mg capsule,del ayed release 03/08 completed Not Available Not Available Not Available mupirocin 2 % topical ointment 03/08 completed Not Available Not Available Not Available levofloxaci n 500 mg tablet 03/08 completed Not Available Not Available Not Available levofloxaci n 750 mg tablet active Not Available Not Available Not Available metformin ER 500 mg tablet,exte nded release 24 hr Take 1 tablet twice a day by oral route as directed for 90 days. active Not Available Not Available No t Available naproxen 500 mg tablet 03/08 completed Not Available Not Available Not Available Ventolin HFA 90 mcg/actuati on aerosol inhaler Inhale 1 puff every day by inhalatio n route as directed for 25 days. active Not Available Not Available No t Available fenofibrate 160 mg tablet Take 1 tablet every day by oral route as directed for 90 days. active Not Available Not Available No t Available Symbicort 160 mcg-4.5 mcg/actuati on HFA aerosol inhaler Inhale 2 puffs twice a day by inhalatio n route as directed for 30 days. active Not Available Not Available No t Available Vascepa 1 gram capsule active Not Available Not Available Not Available Jardiance 25 mg tablet active Not Available Not Available Not Available Vitals Date Recorded Body weight Body mass index (BMI) Body height Heart rate Oxygen saturation Oxygen saturation in Arterial blood by Pulse oximetry Systolic blood pressure Diastolic blood pressure Provider Name and Address Organization Details Last Updated DateTime 9 19709.0 7 g 30.6 kg/m2 172.72 cm 94 /min 94 % 94 % 118 mm[Hg] 78 mm[Hg] [facility] 9 16:31:05 Date Recorded Body height Body mass index (BMI) Body weight Heart rate Oxygen saturation Oxygen saturation in Arterial blood by Pulse oximetry Systolic blood pressure Diastolic blood pressure Provider Name and Address Organization Details Last Updated DateTime 9 172.72 cm 30.3 kg/m2 44023.8 8 g 85 /min 93 % 93 % 124 mm[Hg] 90 mm[Hg] Shruthi [facility] 9 10:58:37 Date Recorded Body height Body mass index (BMI) Body weight Oxygen saturation Oxygen saturation in Arterial blood by Pulse oximetry Heart rate Systolic blood pressure Diastolic blood pressure Provider Name and Address Organization Details Last Updated DateTime 9 172.72 cm 30.3 kg/m2 97127.8 8 g 94 % 94 % 98 /min 128 mm[Hg] 78 mm[Hg] Shruthi [facility] 9 12:21:20 Social History Question Answer Notes LastModified by Organizat ion Details LastModified Time Tobacco Smoking Status Current Every Day Smoker Not Available [facility] 07/11/2020 03:30:42 What Is Your Level Of Caffeine Consumption? Moderate [id number] Information not available 07/11/2020 What Type Of Diet Are You Following? REGULAR [id number] Information not available 07/11/2020 Do You Or Have You Ever Used E-cigarettes Or Vape? Never Used Electronic Cigarettes [id number] Information not available 07/11/2020 Marital Status [email or web address] Informatio n not available 03/08/2019 What Was The Date Of Your Most Recent Tobacco Screening? 03/08/2019 [id number] Information not available 07/11/2020 How Many Children Do You Have? 1 [id number] Information not available 07/11/2020 How Many Years Have You Smoked Tobacco? 37 [id number] Information not available 07/11/2020 Sex: Unknown Functional Status Question Answer Note LastModified by Organization D etails LastModified Time What is your exercise level? None [id number] Information not available 07/11/2020 Mental Status None recorded. Family History Relationship Description Onset Age of this Age Resolved Age Notes LastModified by Organization Details LastModified Time Father Diabetes mellitus [email or web address] Not available 2018 16:36:31 Father Hyperlipidem ia [email or web address] Not available 2018 16:36:44 Medical History Condition Response Diabetes Y Hyperlipidemia Y Gynecological HistoryNo gynecological history recorded. Obstetrics History GPAL:G 0 P 0 0 0 0 Past Encounters Encounter ID Performer Location Encounter Start Date Encounter Closed Date Diagnosis/Indication Diagnosis SNOMED-CT Code Diagnosis ICD10 Code [id number] [facility] OFFICE [address] [place] [id number] 1 03/08/2019 15:49:58 03/08/2019 21:59:20 Hyperlipidemia 74160047 E78.2 Diabetes mellitus 865818 09 E11.59 Dyspnea on exertion 6084 5006 R06.09 [id number] [facility] OFFICE [address] [place] [phone] 1 04/07/2019 10:31:28 04/07/2019 12:26:12 Dyspnea on exertion 16013821 R06.09 Hyperlipidemia 38042408 E78.2 Diabetes mellitus 959275 09 E11.59 [id number] [facility] [place] OFFICE [address] [place] [id number] 1 04/28/2019 12:15:42 04/28/2019 12:50:28 Dyspnea on exertion 51606456 R06.09 Hyperlipidemia 11249362 E78.2 Diabetes mellitus 120256 09 E11.59 Health Concerns Section Related Observation LastModified by Organization Detai ls LastModified Time None Recorded Concern Status LastModified by Organization Details LastModified Time None Recorded Advance Directives Directive None Recorded Payers Encounter Date Sequence Insurance Name Policy Number Policy [place] Covered Member ID [place] Member ID Guarantor Name 03/08/2019 1 [place] Nayeli Bee [id number] Nayeli Bee 03/08/2019 2 [place] [facility] Nayeli Bee [id number] Nayeli Bee 04/07/2019 1 [place] Bee [id number] Nayeli Bee 04/07/2019 2 [place] [facility] A[facility] Nayeli Bee [id number] Nayeli Bee 04/28/2019 1 [place]ayeli Bee [id number] Nayeli Bee 04/28/2019 2 [place] [facility] Nayeli Bee [id number] Nayeli Bee Notes Date Note Type Note Provider Name and Address Organization Details Recorded Time 03/08/2019 text/html 03/08/19 cc: BRAUN 53 year-old female with history of Hodgkin's lymphoma, COPD, DM type 2, Hypothyroidism on Synthroid, uncontrolled dyslipidemia, presents for cardiac consultation with a chief complaint of dyspnea. Report exertional dyspnea. Patient at time is SOB at rest but mostly with exertion, less than 8 stairs and she must rest . This is new in the recent 3-5 months getting worse. Yes, associated chest pain, non radiating, relieved with rest. Cramping in legs at times at rest or exertion. Feels lewis than usual, legs occasionally swell. Recent echo, with normal systolic function no valvular disease, LVEF 50-60%. {{No known history of coronary artery disease.* History of coronary artery disease reported.}} {{No history of previous myocardial infarction.* History of previous myocardial infarction reported.}} {{No history of heart failure.* History of heart failure reported.}} {{No known valvular heart disease.* History of valvular heart disease reported.}} {{No known arrhythmia.* History of arrhythmia reported.}} {{Patient reports feeling well overall. Patient reports not feeling well sometimes.}} {{Patient is active, but is not exercising regularly.* Patient is active, exercising regularly. Patient is not very active, and is not exercising.}} {{No chest pain. Chest pain reported. Exertional chest pain reported. Non-exerti onal chest pain reported. Chest pain reported which is only sometimes associated with activity.}} {{No arm pain.* Arm pain reported.}} {{No neck pain.* Neck pain reported.}} {{No nausea and vomiting.* Nausea and vomiting reported.}} {{No diaphoresis.* Diapho resis reported.}} {{No shortness of breath at rest.* Shortness of breath at rest reported.}} {{No dyspnea on exertion. Dyspnea on exertion reported.*}} {{+ fatigue.# No fatigue. Fatigue reported.}}{{mild orthopnea.# No orthopnea. Orthopnea reported.}} {{No PND.* PND reported.}} {{+ leg swelling.# No leg swelling. Leg swelling reported.}} {{No palpitation.* Palpit ation reported.}} {{No dizziness.* Dizzines s reported.}} {{No syncope .* Syncope reported.}} {{No pre-syncope.* Pre-sy ncope reported.}} {{No claudication.* Braydon ication reported.}} {{No major bleeding events.* Major bleeding event reported.}} {{No side effects from medications. Side effects from medications reported.}} {{Complete ROS negative except as stated in the HPI. Complete ROS negative except as stated in the HPI and ROS.}} H/o Non Hogkins lymphoma since 2014 followed had had radiation and chemo Results from this visit, or from the past: EK02/24/19 Normal sinus rhythm. Artis esposito [place] [facility] 03/08/2019 21:59:19 04/07/2019 text/html 04/07/19 cc: BRAUN 53 year-old female with history of Hodgkin's lymphoma, COPD, DM type 2, Hypothyroidism on Synthroid, uncontrolled dyslipidemia, iron-deficiency anemia, presents for follow-up with a chief complaint of dyspnea. Report continuing exertional dyspnea. Patient at time is SOB at rest but mostly with exertion, less than 8 stairs and she must rest . This is new in the recent 3-5 months getting worse. Yes, associated chest pain, non radiating, relieved with rest. Cramping in legs at times at rest or exertion. Feels lewis than usual, legs occasionally swell. Recent echo, with normal systolic function no valvular disease, LVEF 50-60%. {{No known history of coronary artery disease.* History of coronary artery disease reported.}} {{No history of previous myocardial infarction.* History of previous myocardial infarction reported.}} {{No history of heart failure.* History of heart failure reported.}} {{No known valvular heart disease.* History of valvular heart disease reported.}} {{No known arrhythmia.* History of arrhythmia reported.}} {{Patient reports feeling well overall. Patient reports not feeling well sometimes.}} {{Patient is active, but is not exercising regularly.* Patient is active, exercising regularly. Patient is not very active, and is not exercising.}} {{No chest pain. Chest pain reported. Exertional chest pain reported. Non-exerti onal chest pain reported. Chest pain reported which is only sometimes associated with activity.}} {{No arm pain.* Arm pain reported.}} {{No neck pain.* Neck pain reported.}} {{No nausea and vomiting.* Nausea and vomiting reported.}} {{No diaphoresis.* Diapho resis reported.}} {{No shortness of breath at rest.* Shortness of breath at rest reported.}} {{No dyspnea on exertion. Dyspnea on exertion reported.*}} {{+ fatigue.# No fatigue. Fatigue reported.}}{{mild orthopnea.# No orthopnea. Orthopnea reported.}} {{No PND.* PND reported.}} {{+ leg swelling.# No leg swelling. Leg swelling reported.}} {{No palpitation.* Palpit ation reported.}} {{No dizziness.* Dizzines s reported.}} {{No syncope .* Syncope reported.}} {{No pre-syncope.* Pre-sy ncope reported.}} {{No claudication.* Braydon ication reported.}} {{No major bleeding events.* Major bleeding event reported.}} {{No side effects from medications. Side effects from medications reported.}} {{Complete ROS negative except as stated in the HPI. Complete ROS negative except as stated in the HPI and ROS.}} H/o Non Hogkins lymphoma since 2014 followed had had radiation and chemo Had 12/6/18 ECHO: Normal RV and LV size and function. EF~ 62%. trace MR. E to A reversal , diastolic dysfunction, grade 1. E to e' ~9, intermediate range for left atrial filing pressures. no effusion. IVC not well soon. Had Lexiscan 03/30/19: positive for ischemia, mildly reversible defect in inferior area, LVEF >60%. Results from this visit, or from the past: 02/24/19 EKG: NSR, left axis deviation. nonspecific ST and T wave abnormality. 08/13/18 ECHO: Normal RV and LV size and function. EF~ 62%. trace MR. E to A reversal , diastolic dysfunction, grade 1. E to e' ~9, intermediate range for left atrial filing pressures. no effusion. IVC not well soon. 07/30/17 US thyroid: multiple small hypo echoic bilateral thyroid nodules measuring 1 cm or less, likely benign. recommend followup ultrasound in 12 months. JESSY [facility] 04/07/2019 12:26:10 04/28/2019 text/html cc: BRAUN 53 year-old female with history of Hodgkin's lymphoma, COPD, DM type 2, Hypothyroidism on Synthroid, uncontrolled dyslipidemia, iron-deficiency anemia, presents for follow-up with a chief complaint of dyspnea. Patient was referred last visit for [facility] (done in the setting of continuing exertional dyspnea and positive stress test). She returns today for follow up after he procedure. She denies chest pain. She continues to smoke but trying to quit. . Recent echo, with normal systolic function no valvular disease, LVEF 50-60%. {{No known history of coronary artery disease.* History of coronary artery disease reported.}} {{No history of previous myocardial infarction.* History of previous myocardial infarction reported.}} {{No history of heart failure.* History of heart failure reported.}} {{No known valvular heart disease.* History of valvular heart disease reported.}} {{No known arrhythmia.* History of arrhythmia reported.}} {{Patient reports feeling well overall. Patient reports not feeling well sometimes.}} {{Patient is active, but is not exercising regularly.* Patient is active, exercising regularly. Patient is not very active, and is not exercising.}} {{No chest pain. Chest pain reported. Exertional chest pain reported. Non-exerti onal chest pain reported. Chest pain reported which is only sometimes associated with activity.}} {{No arm pain.* Arm pain reported.}} {{No neck pain.* Neck pain reported.}} {{No nausea and vomiting.* Nausea and vomiting reported.}} {{No diaphoresis.* Diapho resis reported.}} {{No shortness of breath at rest.* Shortness of breath at rest reported.}} {{No dyspnea on exertion. Dyspnea on exertion reported.*}} {{+ fatigue.# No fatigue. Fatigue reported.}}{{mild orthopnea.# No orthopnea. Orthopnea reported.}} {{No PND.* PND reported.}} {{+ leg swelling.# No leg swelling. Leg swelling reported.}} {{No palpitation.* Palpit ation reported.}} {{No dizziness.* Dizzines s reported.}} {{No syncope .* Syncope reported.}} {{No pre-syncope.* Pre-sy ncope reported.}} {{No claudication.* Braydon ication reported.}} {{No major bleeding events.* Major bleeding event reported.}} {{No side effects from medications. Side effects from medications reported.}} {{Complete ROS negative except as stated in the HPI. Complete ROS negative except as stated in the HPI and ROS.}} H/o Non Hogkins lymphoma since 2014 followed had had radiation and chemo Had 08/13/18 ECHO: Normal RV and LV size and function. EF~ 62%. trace MR. E to A reversal , diastolic dysfunction, grade 1. E to e' ~9, intermediate range for left atrial filing pressures. no effusion. IVC not well soon. Had Lexiscan 03/30/19: positive for ischemia, mildly reversible defect in inferior area, LVEF >60%. Results from this visit, or from the past:04/23/19: PT 12.8, INR 0.94, PTT : Na 140 , K 4.1 ,CL 106 ,CO2 23, GLU 98, BUN 10, CR 0.6, 02/24/19 EKG: NSR, left axis deviation. nonspecific ST and T wave abnormality. 03/30/19 MANFRED-ADEQUATE STRESS WITH LEXISCAN. POSITIVE STRESS TEST FOR ISCHEMIA. MILDLY REVERSIBLE DEFECT CONSISTENT WITH ISCHEMIA IN INFERIOR ARE, NORMAL LV FUNCTION. ABNORMAL STRESS TEST. NO PREVIOUS STUDY TO COMPARE, LVEF >60% 08/13/18 ECHO: Normal RV and LV size and function. EF~ 62%. trace MR. E to A reversal , diastolic dysfunction, grade 1. E to e' ~9, intermediate range for left atrial filing pressures. no effusion. IVC not well soon. 07/30/17 US thyroid: multiple small hypo echoic bilateral thyroid nodules measuring 1 cm or less, likely benign. recommend followup ultrasound in 12 months. Patient was seen by Dewayne Proctor and plan discussed with Dr Jaquan esposito [place] [facility] 04/28/2019 12:50:26 OBGyn Episode No OBEpisode recorded.
--- OUTSIDE RECORDS SUMMARY | 2024-09-04 18:26 | XMS_ITS | Encounter Summary ---
Author Organization [facility] Address [address] Attn: Epic Prelude ADT [place] [id number] Care Team Providers Care Mate Fourth Name Role Phone Biju Whyte MD Primary Care Provider [phone] Encounter Details Date Type Department Care Team (Latest Contact Info) Description 04/21/2020 Travel Social History Tobacco Use Types Packs/Day [...] on filedocumented in this encounter Care Teams Mate Fourth Relationship Specialty Start Date End Date Biju Whyte MD PCP - General Emergency Medicine 05/28/19 documented as of this encounter
--- OUTSIDE RECORDS SUMMARY | 2024-09-04 18:26 | XMS_ITS | Encounter Summary ---
Author Organization [facility] Address [address] [place] [address] Care Team Providers Care Port Patrol Officer Name Role Phone Biju Whyte MD Primary Care Provider [phone] Encounter Details Date Type Department Care Team (Late st Contact Info) Description 10/21/2019 Orders Only [facility] Oncology and Hematology - Aneesh [address] [facility] [address] [place] [address] Elio Castellanos MD [address] [facility] [address] [place] [address] Hodgkin lymphoma, unspecified, lymph nodes [...] Procedure Name Priority Date/Time Associated Diagnosis Comments COMPREHENSIVE METABOLIC PANEL Routine 10/18/2019 Hodgkin lymphoma, unspecified, lymph nodes of head, face, and neck documented in this encounter Results * COMPREHENSIVE METABOLIC PANEL (10/18/2019) Blood Elio Castellanos MD CHEMISTRY ORDERABLES EXTERNAL LAB documented in this encounter Visit Diagnoses Diagnosis Hodgkin lymphoma, unspecified, lymph nodes of head, face, and neck documented in this encounter Care Teams Port Patrol Officer Relationship Specialty Start Date End Date Biju Whyte MD PCP - General Emergency Medicine 05/28/19 documented as of this encounter
--- OUTSIDE RECORDS SUMMARY | 2024-09-04 18:26 | XMS_ITS | Encounter Summary ---
Author Organization [facility] Address [address] [place] [address] Care Team Providers Care Cone Examiner Name Role Phone Biju Whyte MD Primary Care Provider [phone] Encounter Details Date Type Department Care Team (Late st Contact Info) Description 04/21/2020 Orders Only [facility] Oncology and Hematology [facility] [address] [address] Elio Castellanos MD [facility] [address] [place] [address] Social History Tobacco Use Types Packs/Day Years [...] Associated Diagnosis Comments CBC WITH DIFFERENTIAL Routine 04/21/2020 documented in this encounter Results * CBC WITH DIFFERENTIAL (04/21/2020) Blood Elio Castellanos MD HEMATOLOGY ORDERABLE [facility] ONCOLOGY AND HEMATOLOGY [facility] CLIA# [id number] [place] [address] documented in this encounter Visit Diagnoses Not on filedocumented in this encounter Care Teams Cone Examiner Relationship Specialty Start Date End Date Biju Whyte MD PCP - General Emergency Medicine 05/28/19 documented as of this encounter
--- OUTSIDE RECORDS SUMMARY | 2024-09-04 18:26 | XMS_ITS | Encounter Summary ---
Author Organization [facility] Address [address] [facility] [address] [place] [address] Care Team Providers Care Concrete Pourer Name Role Phone Biju Whyte MD Primary Care Provider [phone] Encounter Details Date Type Department Care Team (Late st Contact Info) Description 03/28/2020 Telephone [facility] Pulmonology [address] [facility] [address] [place] [address] Gretchen Eastman MA Social History Tobacco Use Types Packs/Day Years Used Date Smoking Tobacco: Every Day Cigarettes 1 30 Smokeless Tobacco: Never Comments:03/09/19: Used to smo ke up to 2ppd Comments Unknown Sex and Gender Information Value Date Recorded Sex Assigned at Not on file Legal Sex Female 1:00 AM PRODUCT MARKETER Gender Identity Not on file Sexual Orientation Not on file documented as of this encounter Miscellaneous Notes * Telephone Encounter - Hazel Callahan - 03/28/2020 10:19 AM CDT Patient coming in 03/29/2020 @ 1330 for o2 recertification * Telephone Encounter - Gretchen Eastman MA - 03/28/2020 9:55 AM CDT Pt needs to be seen before Friday to qualify for her O2 per medicare, can she been this week? Please call pt and schedule if she can? documented in this encounter Plan of Treatment Not on file documented as of this encounter Visit Diagnoses Not on filedocumented in this encounter Care Teams Concrete Pourer Relationship Specialty Start Date End Date Biju Whyte MD PCP - General Emergency Medicine 12/03/18 documented as of this encounter
--- OUTSIDE RECORDS SUMMARY | 2024-09-04 18:26 | XMS_ITS | Referral Summary ---
Author Organization [facility] Address [address] [place] [address] Phone Care Team Providers Care Director Custom Name Role Phone Biju Whyte MD Primary Care Provider [phone] Allergies Active Allergy Reactions Criticality Noted Date Comments Codeine Unknown,Nausea And Vomiting 01/05/20 16 Latex Unknown,Rash Medium 01/05/2016 Medications fenofibrate (TRIGLIDE) 160 mg tablet 01/12/20 19 Active ibuprofen (ADVIL,MOTRIN) 400 mg tablet 11/22/[address] (PROTONIX) 40 mg EC tablet pantoprazole 40 mg tablet,delayed release TK 1 T PO QD 12/05/19 16 Active aspirin 81 mg enteric coated tablet daily Active empagliflozin (Jardiance) 25 mg tablet Jardiance 25 mg tablet TK 1 T PO QD IN THE MORNING Active blood glucose diagnostic (True Metrix Glucose Test Strip) strip 09/22/19 20 Active ergocalciferol (VITAMIN D) 50,000 unit capsule TK 1 C PO Q WK IN THE MORNING 08/20/20 19 Active icosapent ethyL (Vascepa) 1 gram capsule Vascepa 1 gram capsule TAKE 2 CAPSULES BY MOUTH TWICE DAILY BEFORE MEALS 09/22/19 20 Active lancets (TRUEplus Lancets) 33 gauge misc TEST BID AND BEFORE LARGEST MEAL 09/22/19 20 Active levothyroxine (SYNTHROID) 112 mcg tablet levothyroxine 112 mcg tablet Active exenatide microspheres (BYDUREON) 2 mg/0.85 mL auto-injector Bydureon BCise 2 mg/0.85 mL subcutaneous auto-injector INJECT 2 MG UNDER THE SKIN EVERY WEEK DIRECTED Active evolocumab 140 mg/mL pen injector 1 mL Active ipratropium-albu teroL (DUO-NEB) 0.5-2.5 mg/3 mL nebulizer solutionIndicati ons:Simple chronic bronchitis (HCC) Take 3 mL by nebulization every 6 (six) hours For treatment of COPD, J44.9 1080 mL 3 11/07/19 21 Active budesonide-formo teroL (Symbicort) 160-4.5 mcg/actuation inhaler Inhale 2 puffs 2 (two) times a day Rinse mouth with water after use. Do not swallow. 1 Inhaler 4 12/09/19 21 Active albuterol HFA (PROVENTIL HFA,VENTOLIN HFA,PROAIR HFA) 90 mcg/actuation inhaler INHALE 2 PUFFS BY MOUTH EVERY 6 HOURS NEEDED 54 g 3 05/30/20 21 Active Active Problems Problem Noted Date Diagnosed Date Nocturnal hypoxia 12/03/2018 Assessment & Plan (09/30/2020 7:18 PM FARM ADVISOR): Continue with supplemental oxygen at night. Assessment & Plan (03/29/2020 1:34 PM CDT): Overnight pulse oximetry shows significant desaturations. Will recertify her for 3 L of supplemental oxygen at night. Assessment & Plan (02/26/2020 2:57 PM CDT): Continue with 3 L of supplemental oxygen at night.Will obtain overnight pulse oximetry for recertification of nocturnal oxygen. Assessment & Plan (09/17/2019 5:24 PM FARM ADVISOR): Continue with 3 L of supplemental oxygen at night. Assessment & Plan (03/11/2019 3:01 PM CDT): Continue with 3 L of oxygen at night. Smoking 12/03/2018 Assessment & Plan (09/30/2020 7:18 PM FARM ADVISOR): Patient was advised to quit smoking. Obtain records of CT scan of the chest done at [facility]. Assessment & Plan (03/29/2020 1:34 PM CDT): Patient was advised to quit smoking. She is scheduled for repeat CT scan of the chest for lung cancer screening before her next visit. Assessment & Plan (02/26/2020 2:58 PM CDT): Will obtain CT scan of the chest with her next visit for lung cancer screening. Assessment & Plan (09/17/2019 5:25 PM FARM ADVISOR): Patient continued to smoke. She was advised to quit smoking. She will need CT scan of the chest for lung cancer screening on yearly basis. Assessment & Plan (03/11/2019 3:02 PM CDT): Patient was advised to quit smoking. I will start her on Wellbutrin to assist with smoking cessation. 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 duo nebs/albuterol inhaler. Assessment & Plan (03/29/2020 1:34 PM CDT): Continue with Symbicort, duo nebs and p.r.n. albuterol inhaler. Assessment & Plan (02/26/2020 2:58 PM CDT): CONTINUE WITH SYMBICORT AND P.R.N. ALBUTEROL INHALER. Assessment & Plan (09/17/2019 5:25 PM FARM ADVISOR): Continue with Symbicort and albuterol inhaler. Currently she is having exacerbation of COPD. I will obtain 2 with a chest x-ray and start her on levofloxacin and prednisone. She was advised to come to ER if her symptoms do not get better within next 48 hours. Assessment & Plan (03/11/2019 3:01 PM CDT): Continue with Symbicort and p.r.n. Albuterol inhaler. Resolved Problems Problem Noted Date Diagnosed Date Resolved Date Pulmonary nodule 12/03/2018 09/17/2019 Overview (03/08/2019): 12/11/2018 - CT Chest w/o IMPRESSION 1.There are no suspicious lung nodules. 2.The focal area described as a possible 1.5cm mass at the base of the right lower lobe corresponds to either a small focal diaphragmatic defect, or a focal area of subpleural fat deposition. This is a benign finding, requiring no additional follow-up or workup. 3.Severe centrilobular emphysema in the mid to upper lungs. 4.Hepatic steatosis. Assessment & Plan (03/11/2019 3:02 PM CDT): CT scan of the chest reviewed. No concerning nodules or masses noted. She does have severe centrilobular emphysema. Simple chronic bronchitis 12/03/2018 Immunizations Name Administration Dates Next Due Influenza, Split 09/08/2017 Social History Tobacco Use Types Packs/Day Years Used Date Smoking Tobacco: Every Day Cigarettes 1 30 Smokeless Tobacco: Never Comments:03/09/19: Used to smo ke up to 2ppd Personal Safety Answer Date Recorded Getting School Help Needed Not on file 08/20 Comments Unknown Sex and Gender Information Value Date Recorded Sex Assigned at Not on file Legal Sex Female 1:00 AM FARM ADVISOR Gender Identity Not on file Sexual Orientation Not on file Last Filed Vital Signs Vital Sign Reading Time Taken Comments Blood Pressure 100/78 09/28/2020 9:22 AM FARM ADVISOR Pulse 73 09/28/2020 9:22 AM FARM ADVISOR Temperature 35.8 ??C (96.4 ??F) 09/28/2020 9:22 AM CS T Respiratory Rate 18 09/28/2020 9:22 AM FARM ADVISOR Oxygen Saturation 93% 09/28/2020 9:22 AM FARM ADVISOR Inhaled Oxygen Concentration - - Weight 88.9 kg (196 lb) 09/28/2020 9:22 AM FARM ADVISOR Height 172.7 cm (5' 8 ) 09/15/2019 1:37 PM FARM ADVISOR Body Mass Index 29.8 09/15/2019 1:37 PM FARM ADVISOR Plan of Treatment Not on file Insurance MEDICARE [facility] Address: [address] [address] [place] [address] [employer] Care Teams Director Custom Relationship Specialty Start Date End Date Biju Whyte MD PCP - General Emergency Medicine 12/03/18
--- OUTSIDE RECORDS SUMMARY | 2024-09-04 18:26 | XMS_ITS | Encounter Summary ---
Author Organization [facility] Address [address] [place] [address] Care Team Providers Care Commercial Underwriter Name Role Phone Biju Whyte MD Primary Care Provider [phone] Encounter Details Date Type Department Care Team ([facility] st Contact Info) Description 02/24/2020 9:30 AM CDT Office Visit [facility] Pulmonology [address] [facility] [address] [place] [address] April Worthy MD [address] [facility] [address] [place] [address] Simple chronic bronchitis (CMS/HCC) (Primary Dx); Nocturnal hypoxia; Smoking; Encounter for screening for malignant neoplasm of respiratory organs Social History Tobacco Use Types Packs/Day Years Used Date Smoking Tobacco: Every Day Cigarettes 1 30 Smokeless Tobacco: Never Comments:03/09/19: Used to smo ke up to 2ppd Comments Unknown Sex and Gender Information Value Date Recorded Sex Assigned at Not on file Legal Sex Female 1:00 AM ACCIDENT EXAMINER Gender Identity Not on file Sexual Orientation Not on file documented as of this encounter Last Filed Vital Signs Vital Sign Reading Time Taken Comments Blood Pressure 102/62 02/24/2020 9:29 AM CDT Pulse 81 02/24/2020 9:29 AM CDT Temperature 35.8 ??C (96.5 ??F) 02/24/2020 9:29 AM CD T Respiratory Rate 20 02/24/2020 9:29 AM CDT Oxygen Saturation 97% 02/24/2020 9:29 AM CDT Inhaled Oxygen Concentration - - Weight 88.7 kg (195 lb 9.6 oz) 02/24/2020 9:29 A M CDT Height - - Body Mass Index 29.74 09/15/2019 1:37 PM ACCIDENT EXAMINER documented in this encounter Progress Notes * April Worthy MD - 02/24/2020 9:30 AM CDT Progress Note Patient: Nayeli Og ( - 1965) is a 54 y.o. female. Visit Date: 02/24/2020 I am seeing this patient in consultation, requested by Biju Whyte MD for COPD History of Present Illness: Patient is a [...] p.r.n. albuterol inhaler. [facility].30 [...] well controlled. Unfortunately she is still smoking. Past Medical History: Past Medical History: Diagnosis [...] Outpatient Medications Medication Sig Dispense Refill ??? albuterol HFA (PROVENTIL HFA,VENTOLIN HFA,PROAIR HFA) 90 mcg/actuation inhaler INHALE 2 PUFFS BY MOUTH EVERY 6 HOURS NEEDED 54 g 0 ??? alendronate (FOSAMAX) 70 mg tablet TAKE 1 TABLET BY MOUTH EVERY WEEK 0 ??? aspirin 81 mg enteric coated tablet daily ??? blood glucose diagnostic (True Metrix Glucose Test Strip) strip ??? empagliflozin (Jardiance) 25 mg tablet Jardiance 25 mg tablet TK 1 T PO QD IN THE MORNING ??? ergocalciferol (VITAMIN D) 50,000 unit capsule TK 1 C PO Q WK IN THE MORNING ??? fenofibrate (TRIGLIDE) 160 mg tablet ??? ibuprofen (ADVIL,MOTRIN) 400 mg tablet ??? [...] MOUTH AFTER USE 1 Inhaler 3 ??? docosahexanoic acid/epa (FISH OIL ORAL) Take by mouth ??? fluticasone propionate (FLONASE) 50 mcg/actuation nasal spray fluticasone propionate 50 mcg/actuation nasal spray,suspension No current facility-administered medications for this visit. [...] on phone: None Gets together: None Attends gnosticism service: None Active member of club or [...] confusion and sleep disturbance. Physical Exam: Vitals: 02/24/20 0929 BP: 102/62 Pulse: 81 Resp: 20 Temp: (!) 35.8 ??C (96.5 ??F) SpO2: 97% Weight: 88.7 kg (195 lb 9.6 oz) Physical Exam Constitutional: Appearance: She is well-developed. [...] Diagnoses and all orders for this visit: Simple chronic bronchitis (CMS/HCC) (Primary) Assessment & Plan: CONTINUE WITH SYMBICORT AND P.R.N. ALBUTEROL INHALER. Orders: - Overnight SpO2 Desaturation Study -; Future Nocturnal hypoxia Assessment & Plan: Continue with 3 L of supplemental oxygen at night.Will obtain overnight pulse oximetry for recertification of nocturnal oxygen. Orders: - Overnight SpO2 Desaturation Study -; Future Smoking Assessment & Plan: Will obtain CT scan of the chest with her next visit for lung cancer screening. Encounter for screening for malignant neoplasm of respiratory organs - CT Lung Cancer Screening; Future Rendering Provider & Department: April Worthy MD documented in this encounter Miscellaneous Notes * Assessment & Plan Note - April Worthy MD - 02/26/2020 2:58 PM CDT Associated Problem(s): Smoking Will obtain CT scan of the chest with her next visit for lung cancer screening. * Assessment & Plan Note - April Worthy MD - 02/26/2020 2:58 PM CDT Associated Problem(s): COPD (chronic obstructive pulmonary disease) (HCC) CONTINUE WITH SYMBICORT AND P.R.N. ALBUTEROL INHALER. * Assessment & Plan Note - April Worthy MD - 02/26/2020 2:57 PM CDT Associated Problem(s): Nocturnal hypoxia Continue with 3 L of supplemental oxygen at night.Will obtain overnight pulse oximetry for recertification of nocturnal oxygen. documented in this encounter Plan of Treatment Not on file documented as of this encounter Visit Diagnoses Diagnosis Simple chronic bronchitis (HCC)- Primary Simple chronic bronchitis Nocturnal hypoxia Smoking Tobacco use disorder Encounter for screening for malignant neoplasm of respiratory organs documented in this encounter Discontinued Medications Medication Sig Discontinue Reason Start Date End Da te atorvastatin (LIPITOR) 80 mg tablet TK 1 T PO QHS 12/04/2018 02/24/2020 buPROPion (WELLBUTRIN) 100 mg tablet Take 1 tablet (100 mg total) by mouth 2 (two) times a day Therapy completed 03/09/2019 02/24/2020 oxybutynin XL (DITROPAN-XL) 10 mg 24 hr tablet TK 1 T PO QD Therapy completed 12/04/2018 02/24/2020 omeprazole (PriLOSEC) 20 mg capsule TK ONE C PO QD PRN Alternate therapy 12/04/2018 02/24/2020 documented as of this encounter Historical Medications * This list may reflect changes made after this encounter. lancets (TRUEplus Lancets) 33 gauge misc TEST BID AND BEFORE LARGEST MEAL 09/22/2019 icosapent ethyL (Vascepa) 1 gram capsule Vascepa 1 gram capsule TAKE 2 CAPSULES BY MOUTH TWICE DAILY BEFORE MEALS 09/22/2019 ergocalciferol (VITAMIN D) 50,000 unit capsule TK 1 C PO Q WK IN THE MORNING 08/20/2019 blood glucose diagnostic (True Metrix Glucose Test Strip) strip 09/22/2019 rosuvastatin (CRESTOR) 40 mg tablet rosuvastatin 40 mg tablet Take 1 tablet(s) every day by oral route at bedtime for 30 days. 1 added in this encounter Care Teams Commercial Underwriter Relationship Specialty Start Date End Date Biju Whyte MD PCP - General Emergency Medicine 12/03/18 documented as of this encounter
--- OUTSIDE RECORDS SUMMARY | 2024-09-04 18:26 | XMS_ITS | Encounter Summary ---
Author Organization [facility] Address [address] [place] [address] Care Team Providers Care Air Conditioning Manager Name Role Phone Biju Whyte MD Primary Care Provider [phone] Encounter Details Date Type Department Care Team (Late st Contact Info) Description 03/31/2020 Orders Only [facility] Pulmonology [address] [facility] [address] [place] [address] Gretchen Weiss MA Nocturnal hypoxia (Primary Dx) Social History Tobacco Use Types Packs/Day Years Used Date Smoking Tobacco: Every Day Cigarettes 1 30 Smokeless Tobacco: Never Comments:03/09/19: Used to smo ke up to 2ppd Comments Unknown Sex and Gender Information Value Date Recorded Sex Assigned at Not on file Legal Sex Female 1:00 AM GOLF COURSE ASSISTANT Gender Identity Not on file Sexual Orientation Not on file documented as of this encounter Progress Notes * Gretchen Weiss MA - 03/31/2020 9:41 AM CDT oxygen documented in this encounter Plan of Treatment Not on file documented as of this encounter Visit Diagnoses Diagnosis Nocturnal hypoxia- Primary documented in this encounter Care Teams Air Conditioning Manager Relationship Specialty Start Date End Date Biju Whyte MD PCP - General Emergency Medicine 12/03/18 documented as of this encounter
--- OUTSIDE RECORDS SUMMARY | 2024-09-04 18:26 | XMS_ITS | Encounter Summary ---
Author Organization [facility] Address [address] [place] [address] Care Team Providers Care Bat Lathe Operator Name Role Phone Biju Whyte MD Primary Care Provider [phone] Encounter Details Date Type Department Care Team (Late st Contact Info) Description 06/10/2019 Orders Only [facility] Oncology and Hematology - Aneesh [address] [facility] [address] [place] [address] Elio Castellanos MD [address] [facility] [facility] [address] [place] [address] Encounter for screening for lung cancer Social [...] 06/10/2019 Encounter for screening for lung cancer documented in this encounter Results * CT LUNG SCREENING (06/10/2019) Anatomical Region Laterality Modality Chest Other Elio Castellanos MD CT ORDERABLES documented in this encounter Visit Diagnoses Diagnosis Encounter for screening for lung cancer documented in this encounter Care Teams Bat Lathe Operator Relationship Specialty Start Date End Date Biju Whyte MD PCP - General Emergency Medicine 05/28/19 documented as of this encounter
--- OUTSIDE RECORDS SUMMARY | 2024-09-04 18:26 | XMS_ITS | Encounter Summary ---
Author Organization [facility] Address [address] [place]: Epic Prelude ADT [place] [address] Care Team Providers Care Cloth Washer Operator Name Role Phone Biju Whyte MD Primary Care Provider [phone] Encounter Details Date Type Department Care Team (Latest Contact Info) Description 10/18/2019 Travel Social History Tobacco Use Types Packs/Day [...] on filedocumented in this encounter Care Teams Cloth Washer Operator Relationship Specialty Start Date End Date Biju Whyte MD PCP - General Emergency Medicine 05/28/19 documented as of this encounter
--- OUTSIDE RECORDS SUMMARY | 2024-09-04 18:26 | XMS_ITS | Encounter Summary ---
Author Organization [facility] Address [address] [place] [address] Care Team Providers Care Field Crops Harvest Machine Operator Name Role Phone Biju Whyte MD Primary Care Provider [phone] Encounter Details Date Type Department Care Team (Late st Contact Info) Description 04/12/2020 Orders Only [facility] Oncology and Hematology - Aneesh [address] [address] Charlotte Harrington, RN Hodgkin lymphoma, unspecified, lymph nodes of head, [...] neck documented in this encounter Care Teams Field Crops Harvest Machine Operator Relationship Specialty Start Date End Date Biju Whyte MD PCP - General Emergency Medicine 05/28/19 documented as of this encounter
--- OUTSIDE RECORDS SUMMARY | 2024-09-04 18:26 | XMS_ITS | Encounter Summary ---
Author Organization [facility] Address [address] [place] [address] Care Team Providers Care Blood Bank Custodian Name Role Phone Biju Whyte MD Primary Care Provider [phone] Encounter Details Date Type Department Care Team (Late st Contact Info) Description 03/01/2020 Orders Only [facility] Health Information Management [address] [place] [address] Scanning, Provider Social History Tobacco Use Types Packs/Day Years Used Date Smoking Tobacco: Every Day Cigarettes 1 30 Smokeless Tobacco: Never Comments:03/09/19: Used to smo ke up to 2ppd Comments Unknown Sex and Gender Information Value Date Recorded Sex Assigned at Not on file Legal Sex Female 1:00 AM OIL WELL SERVICES DISPATCHER Gender Identity Not on file Sexual Orientation Not on file documented as of this encounter Plan of Treatment Not on file documented as of this encounter Procedures Procedure Name Priority Date/Time Associated Diagnosis Comments PULMONARY - RESULT SCAN 03/01/2020 documented in this encounter Results * PULMONARY - RESULT SCAN (03/01/2020) Anatomical Region Laterality Modality Other us Provider Scanning Edited Result - Final documented in this encounter Visit Diagnoses Not on filedocumented in this encounter Care Teams Blood Bank Custodian Relationship Specialty Start Date End Date Biju Whyte MD PCP - General Emergency Medicine 12/03/18 documented as of this encounter
--- OUTSIDE RECORDS SUMMARY | 2024-09-04 18:26 | XMS_ITS | Encounter Summary ---
Author Organization [facility] Address [address] [place] [address] Care Team Providers Care Aircraft Rigging And Controls Mechanic Name Role Phone Biju Whyte MD Primary Care Provider [phone] Reason for Visit * Reason Comments Follow-up Encounter Details Date Type Department Care Team ([facility] st Contact Info) Description 09/28/2020 9:00 AM FURNITURE REFINISHER Office Visit [facility] Pulmonology [address] [place] [address] April Worthy MD [address] [place] [address] Nocturnal hypoxia (Primary Dx); Simple chronic bronchitis (CMS/HCC); Smoking Social History Tobacco Use Types Packs/Day Years Used Date Smoking Tobacco: Every Day Cigarettes 1 30 Smokeless Tobacco: Never Comments:03/09/19: Used to smo ke up to 2ppd Comments Unknown Sex and Gender Information Value Date Recorded Sex Assigned at Not on file Legal Sex Female 1:00 AM FURNITURE REFINISHER Gender Identity Not on file Sexual Orientation Not on file documented as of this encounter Last Filed Vital Signs Vital Sign Reading Time Taken Comments Blood Pressure 100/78 09/28/2020 9:22 AM FURNITURE REFINISHER Pulse 73 09/28/2020 9:22 AM FURNITURE REFINISHER Temperature 35.8 ??C (96.4 ??F) 09/28/2020 9:22 AM CS T Respiratory Rate 18 09/28/2020 9:22 AM FURNITURE REFINISHER Oxygen Saturation 93% 09/28/2020 9:22 AM FURNITURE REFINISHER Inhaled Oxygen Concentration - - Weight 88.9 kg (196 lb) 09/28/2020 9:22 AM FURNITURE REFINISHER Height - - Body Mass Index 29.8 09/15/2019 1:37 PM FURNITURE REFINISHER documented in this encounter Progress Notes * April Worthy MD - 09/28/2020 9:00 AM CST Progress Note Patient: Nayeli Og ( - 1965) is a 55 y.o. female. Visit Date: 09/28/2020 I am seeing this patient in consultation, requested by Biju Whyte MD for COPD Chief Complaint Patient presents with ??? Follow-up History of Present Illness: Patient is a 55-year-old female with past medical history of COPD, nocturnal hypoxia requiring 3 L of supplemental oxygen at night, Hodgkin's lymphoma in remission for the last 3 years and osteopenia. Patient is a smoker and has smoked 1 pack per day for 35 years and continue to smoke.Currently sheis on Symbicort and p.r.n. albuterol inhaler. ?[facility] [...] pneumonic consolidation. The airway is widely patent. Overnight pulse oximetry done on March 01, 2020 shows he her oxygen saturation was less than 88 for 99 minutes with lowest SpO2 of 81%. Patient underwent CT scan of the chest, abdomen and pelvis at [facility].The results are notavailable to us. Past Medical History: Past Medical History: Diagnosis [...] Outpatient Medications Medication Sig Dispense Refill ??? aspirin 81 mg enteric coated tablet daily ??? blood glucose diagnostic (True Metrix Glucose Test Strip) strip ??? empagliflozin (Jardiance) 25 mg tablet Jardiance 25 mg tablet TK 1 T PO QD IN THE MORNING ??? ergocalciferol (VITAMIN D) 50,000 unit capsule TK 1 C PO Q WK IN THE MORNING ??? evolocumab 140 mg/mL pen injector 1 mL ??? exenatide microspheres (BYDUREON) 2 mg/0.85 mL auto-injector Bydureon BCise 2 mg/0.85 mL subcutaneous auto-injector INJECT 2 MG UNDER THE SKIN EVERY WEEK DIRECTED ??? fenofibrate (TRIGLIDE) 160 mg tablet ??? [...] AND BEFORE LARGEST MEAL ??? levothyroxine (SYNTHROID) 112 mcg tablet levothyroxine 112 mcg tablet ??? pantoprazole DR (PROTONIX) 40 mg EC tablet pantoprazole 40 mg tablet,delayed release TK 1 T PO QD ??? Symbicort 160-4.5 mcg/actuation inhaler INHALE 2 PUFFS BY MOUTH TWICE DAILY. RINSE MOUTH AFTER USE 1 Inhaler 3 ??? Ventolin HFA 90 mcg/actuation inhaler INHALE 2 PUFFS BY MOUTH EVERY 6 HOURS NEEDED 54 g 3 No current facility-administered medications for this visit. [...] on phone: None Gets together: None Attends tenriism service: None Active member of club or [...] Eyes: Negative for discharge and itching. Respiratory: Positive for shortness of breath. Negative for apnea, cough, choking, chest tightness,wheezing and stridor. Cardiovascular: Negative for chest pain, palpitations and [...] confusion and sleep disturbance. Physical Exam: Vitals: 09/28/20 0922 BP: 100/78 Pulse: 73 Resp: 18 Temp: (!) 35.8 ??C (96.4 ??F) SpO2: 93% Weight: 88.9 kg (196 lb) Physical Exam Constitutional: Appearance: She is [...] visit: Nocturnal hypoxia (Primary) Assessment & Plan: Continue with supplemental oxygen at night. Simple chronic bronchitis (CMS/HCC) Assessment & Plan: Continue with Symbicort and p.r.n. duo nebs/albuterol inhaler. Smoking Assessment & Plan: Patient was advised to quit smoking. Obtain records of CT scan of the chest done at [facility]. Rendering Provider & Department: April Worthy MD ITURE REFINISHER documented in this encounter Miscellaneous Notes * Assessment & Plan Note - April Worthy MD - 09/30/2020 7:18 PM FURNITURE REFINISHER Associated Problem(s): Smoking Patient was advised to quit smoking. Obtain records of CT scan of the chest done at [facility]. ITURE REFINISHER * Assessment & Plan Note - April Worthy MD - 09/30/2020 7:18 PM FURNITURE REFINISHER Associated Problem(s): COPD (chronic obstructive pulmonary disease) (HCC) Continue with Symbicort and p.r.n. duo nebs/albuterol inhaler. ITURE REFINISHER * Assessment & Plan Note - April Worthy MD - 09/30/2020 7:18 PM FURNITURE REFINISHER Associated Problem(s): Nocturnal hypoxia Continue with supplemental oxygen at night. ITURE REFINISHER documented in this encounter Plan of Treatment Not on file documented as of this encounter Visit Diagnoses Diagnosis Nocturnal hypoxia- Primary Simple chronic bronchitis (HCC) Simple chronic bronchitis Smoking Tobacco use disorder documented in this encounter Discontinued Medications Medication Sig Discontinue Reason Start Date End Da te levothyroxine (SYNTHROID) 100 mcg tablet daily 09/28/2020 fluticasone propionate (FLONASE) 50 mcg/actuation nasal spray fluticasone propionate 50 mcg/actuation nasal spray,suspension Therapy completed 09/28/2020 metFORMIN XR (GLUCOPHAGE XR) 500 mg 24 hr tablet Therapy completed 01/11/2019 09/28/2020 rosuvastatin (CRESTOR) 40 mg tablet rosuvastatin 40 mg tablet Take 1 tablet(s) every day by oral route at bedtime for 30 days. Therapy completed 09/28/2020 docosahexanoic acid/epa (FISH OIL ORAL) Take by mouth Therapy completed 09/28/2020 alendronate (FOSAMAX) 70 mg tablet TAKE 1 TABLET BY MOUTH EVERY WEEK Therapy completed 12/04/2018 09/28/2020 documented as of this encounter Historical Medications * This list may reflect changes made after this encounter. evolocumab 140 mg/mL pen injector 1 mL exenatide microspheres (BYDUREON) 2 mg/0.85 mL auto-injector Bydureon BCise 2 mg/0.85 mL subcutaneous auto-injector INJECT 2 MG UNDER THE SKIN EVERY WEEK DIRECTED levothyroxine (SYNTHROID) 112 mcg tablet levothyroxine 112 mcg tablet added in this encounter Care Teams Aircraft Rigging And Controls Mechanic Relationship Specialty Start Date End Date Biju Whyte MD PCP - General Emergency Medicine 12/03/18 documented as of this encounter
--- OUTSIDE RECORDS SUMMARY | 2024-09-04 18:26 | XMS_ITS | Encounter Summary ---
Author Organization [facility] Address [address] [place] [address] Care Team Providers Care User Interface Designer Name Role Phone Biju Whyte MD Primary Care Provider [phone] Reason for Referral * Outpatient Services (Routine) - Closed Specialty Diagnoses / Procedures Referred By Contac t Referred To Contact Diagnoses Chronic obstructive pulmonary disease, unspecified COPD type Lung nodule Procedures CT CHEST WO CONTRAST Shannan Gallegos ANP NO ADDRESS ON FILE [address] [address] Referral ID Status Reason Start Date Expiration Date Visits Requested Visits Authorized [id number] Closed Ordering Department To Schedule 04/21/2020 05/22/2021 1 1 Reason for Visit * Reason Comments Follow Up 6 Month f/u w/labs Encounter Details Date Type Department Care Team (Late st Contact Info) Description 04/21/2020 11:00 AM CDT Office Visit [facility] Oncology and Hematology [facility] [address] [place] [address] Shannan Gallegos ANP NO ADDRESS ON FILE Hodgkin lymphoma, unspecified, lymph nodes of head, face, and neck (Primary Dx); Chronic obstructive pulmonary disease, unspecified COPD type; [...] Sign Reading Time Taken Comments Blood Pressure 128/85 04/21/2020 11:19 AM CDT Pulse 95 04/21/2020 11:19 AM CDT Temperature 36.8 ??C (98.2 ??F) 04/21/2020 1 1:19 AM CDT Respiratory Rate - - Oxygen Saturation 97% 04/21/2020 11: 19 AM CDT Inhaled Oxygen Concentration - - Weight 89.7 kg (197 lb 11.2 oz) 020 11:19 AM CDT Height 172.7 cm (5' 8 ) 04/21/2020 11:1 9 AM CDT Body Mass Index 30.06 04/21/2020 11:19 AM CDT documented in this encounter Progress Notes * Scanning, Provider - 04/21/2020 1:15 PM CDT DATE: 04/21/2020 PATIENT: Nayeli Og : 1965 PCP: Biju Whyte MD Chief Complaint Patient presents with ??? Follow Up 6 Month f/u w/labs HISTORY OF PRESENT ILLNESS Ms. 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 She waslast seen 6 months ago. Since that time, she continues to feel reasonably well. She continues to smoke despite COPD. At this time, she is only requiring oxygen at night but feels she may need supplemental oxygen with exertion, particularly going up an incline. She recovers in 10 to 15 minutes. She denies B symptoms, shortness of breath at rest, frequent cough, hemoptysis, chest pain, abdominal pain, pruritus, or new adenopathy. She is up-to-date on colonoscopy (due 09/2022) and will schedule mammogram currently. CURRENT MEDICATIONS Current Outpatient Medications: ??? rosuvastatin (CRESTOR) 40 mg tablet, TK 1 T PO QD HS, Disp: , Rfl: ??? TRUEPLUS LANCETS 33 gauge, TEST BID AND BEFORE LARGEST MEAL, Disp: , Rfl: ??? ipratropium-albuterol (DUONEB) 0.5 mg-3 mg(2.5 mg base)/3 mL Solution for Nebulization, U 3 ML VIA NEB Q 6 H, Disp: , Rfl: ??? ipratropium-albuterol (DUONEB) 0.5 mg-3 mg(2.5 mg base)/3 mL Solution for Nebulization, Take 3 mL by inhalation Post-Proc q 6 hours., Disp: , Rfl: ??? VASCEPA 1 gram Capsule, TK 2 CS PO BID B MEALS, Disp: , Rfl: ??? ergocalciferol (VITAMIN D2) 50,000 unit capsule, TK 1 C PO Q WK IN THE MORNING, Disp: , Rfl: ??? JARDIANCE 25 mg tablet, TK 1 T PO QD IN THE MORNING, Disp: , Rfl: ??? Cholecalciferol, Vitamin D3, 3,000 unit Tablet, every 24 hours., Disp: , Rfl: ??? SYMBICORT 160-4.5 mcg/actuation HFA Aerosol Inhaler, INL 2 PFS PO TWICE DAILY. RM AFTER U, Disp: , Rfl: ??? TRUE METRIX GLUCOSE TEST STRIP Strip, , Disp: , Rfl: ??? VENTOLIN HFA 90 mcg/actuation inhaler, USE 2 PUFFS PO Q 6 H PRN, Disp: , Rfl: ??? metFORMIN (GLUCOPHAGE XR) 500 mg Extended Release 24 hour tablet, metformin ER 500 mg tablet,extended release 24 hr TK ONE T PO BID BEFORE MEALS, Disp: , Rfl: ??? Levothyroxine 100 mcg Capsule, Take 100 mg by mouth., Disp: , Rfl: ??? fenofibrate (LOFIBRA) 160 mg Tablet, fenofibrate 160 mg tablet TK 1 T PO QHS, Disp: , Rfl: ??? Docosahexanoic Acid 100 mg Capsule, Take by mouth., Disp: , Rfl: ??? levothyroxine sodium (SYNTHROID ORAL), Take by mouth., Disp: , Rfl: ??? atorvastatin calcium (LIPITOR ORAL), Take by mouth., Disp: , Rfl: ??? alendronate sodium (FOSAMAX ORAL), Take by mouth., Disp: , Rfl: ??? FENOFIBRATE ORAL, Take by mouth., Disp: , Rfl: ??? metformin HCl (METFORMIN ORAL), Take by mouth., Disp: , Rfl: ??? aspirin (ECOTRIN EC) 81 mg Tablet, Delayed Release (E.C.), Take 81 mg by mouth daily., Disp: , Rfl: ??? pantoprazole sodium (PROTONIX ORAL), Take by mouth., Disp: , Rfl: ALLERGIES Allergies Allergen Reactions ??? Latex Rash and Unknown ??? Codeine Nausea and Vomiting and Unknown TOBACCO COUNSELING She was counseled to discontinue tobacco use. REVIEW OF SYSTEMS Review of Systems Constitutional: Negative for chills, fever, malaise/fatigue and weight loss. HENT: Negative for ear pain, nosebleeds and sore throat. Eyes: Negative for blurred vision, pain and redness. Respiratory: Positive for cough (smoker, chronic) and shortness of breath (with exertion r/t COPD).Negative for hemoptysis. Cardiovascular: Negative for chest pain and leg swelling. Gastrointestinal: Negative for abdominal pain, blood in stool, constipation, diarrhea, melena, nausea and vomiting. Genitourinary: Negative. Musculoskeletal: Negative for back pain, falls and joint pain. Skin: Negative for itching and rash. Neurological: Negative for dizziness, weakness and headaches. Endo/Heme/Allergies: Does not bruise/bleed easily. ECOG 1 PHYSICAL EXAMINATION BP 128/85 (BP Location: Right arm, Patient Position (BP): Sitting, BP Cuff Size: Adult) Pulse 95 Temp 98.2 ??F (36.8 ??C) (Oral) Ht 5' 8 (1.727 m) Wt 89.7 kg (197 lb 11.2 oz) LMP 10/18/1992 (Approximate) SpO2 97% BMI 30.06 kg/m?? Physical Exam Vitals signs reviewed. Constitutional: Appearance: Normal appearance. HENT: Head: Normocephalic. Mouth/Throat: Mouth: Mucous membranes are moist. Pharynx: Oropharynx is clear. Eyes: General: No scleral icterus. Extraocular Movements: Extraocular movements intact. Conjunctiva/sclera: Conjunctivae normal. Neck: Musculoskeletal: Neck supple. Cardiovascular: Rate and Rhythm: Normal rate and regular rhythm. Pulses: Normal pulses. Heart sounds: Normal heart sounds. Pulmonary: Effort: Pulmonary effort is normal. Breath sounds: Normal breath sounds. Abdominal: General: Bowel sounds are normal. Palpations: Abdomen is soft. There is no mass. Tenderness: There is no abdominal tenderness. Musculoskeletal: General: No swelling. Right lower leg: No edema. Left lower leg: No edema. Lymphadenopathy: Head: Right side of head: No submental, submandibular, preauricular or posterior auricular adenopathy. Left side of head: No submental, submandibular, preauricular or posterior auricular adenopathy. Cervical: No cervical adenopathy. Upper Body: Right upper body: No supraclavicular or axillary adenopathy. Left upper body: No supraclavicular or axillary adenopathy. Lower Body: No right inguinal adenopathy. No left inguinal adenopathy. Skin: General: Skin is warm and dry. Findings: No rash. Neurological: General: No focal deficit present. Mental Status: She is alert and oriented to person, place, and time. Psychiatric: Mood and Affect: Mood normal. Behavior: Behavior normal. DIAGNOSIS Encounter Diagnoses Code Name Primary? C81.91 Hodgkin lymphoma, unspecified, lymph nodes of head, face, and neck Yes ??? J44.9 Chronic obstructive pulmonary disease, unspecified COPD type ??? R91.1 Lung nodule LABS 04/21/2020: WBC 8.4, hemoglobin 15.1, hematocrit 47.3, platelets 359. CMP and ESR pending. LDH 487. 10/18/2019: WBC 7.4, hemoglobin 14.7, platelets 398,000. Cr 0.6. ASSESSMENT 1. Stage IIIb nodular sclerosing Hodgkin lymphoma. She is 4 years status post combined modality therapy with [place] and EBRT. She has no evidence of recurrent disease based on physical exam and absence of B symptoms. We will continue to follow her expectantly and see her back in 6 months. 2. Lung cancer screening. She will be due for annual surveillance in June 2020. 3. COPD. She is under the care of a weaving supervisor. She continues oxygen at bedtime and with exertion. ORDERS Orders Placed This Encounter ??? CT CHEST WO CONTRAST ??? CBC WITH DIFFERENTIAL ??? COMPREHENSIVE METABOLIC PANEL ??? LACTATE DEHYDROGENASE ??? SEDIMENTATION RATE ??? COMPREHENSIVE METABOLIC PANEL ??? SEDIMENTATION RATE FOLLOW UP Return in about 6 months (around 10/22/2020). MARIZOL Salter 04/21/2020 [facility] ONCOLOGY AND HEMATOLOGY - [address] [place] [address] documented in this encounter Plan of Treatment Scheduled Orders Name Type Priority Associated Diagnoses Orde r Schedule CBC WITH DIFFERENTIAL Lab Routine Hodgkin lymphoma, unspecified, lymph nodes of head, face, and neck Expected: 10/22/2020, Expires: 04/21/2021 COMPREHENSIVE METABOLIC PANEL Lab Routine Hodgkin lymphoma, unspecified, lymph nodes of head, face, and neck Expected: 10/22/2020, Expires: 04/21/2021 LACTATE DEHYDROGENASE Lab Routine Hodgkin lymphoma, unspecified, lymph nodes of head, face, and neck Expected: 10/22/2020, Expires: 04/21/2021 SEDIMENTATION RATE Lab Routine Hodgkin lymphoma, unspecified, lymph nodes of head, face, and neck Ordered: 04/21/2020 documented as of this encounter Procedures Procedure Name Priority Date/Time Associated Diagnosis Comments COMPREHENSIVE METABOLIC PANEL Routine 04/21/2020 Hodgkin lymphoma, unspecified, lymph nodes of head, face, and neck documented in this encounter Results * CT CHEST WO CONTRAST (06/12/2020) Anatomical Region Laterality Modality Chest Other Shannan CONRAD CT ORDERABLES * COMPREHENSIVE METABOLIC PANEL (04/21/2020) Blood Shannan CONRAD CHEMISTRY ORDERAB LES NON [facility] documented in this encounter Visit Diagnoses Diagnosis Hodgkin lymphoma, unspecified, lymph nodes of head, face, and neck- Primary Chronic obstructive pulmonary disease, unspecified COPD type Lung nodule Solitary pulmonary nodule documented in this encounter Care Teams User Interface Designer Relationship Specialty Start Date End Date Biju Whyte MD PCP - General Emergency Medicine 05/28/19 documented as of this encounter
--- OUTSIDE RECORDS SUMMARY | 2024-09-04 18:26 | XMS_ITS | Encounter Summary ---
Author Organization [facility] Address [address] [place] [address] Care Team Providers Care Movable Bulkhead Installer Name Role Phone Biju Whyte MD Primary Care Provider [phone] Encounter Details Date Type Department Care Team (Late st Contact Info) Description 10/13/2019 Orders Only [facility] Oncology and Hematology - [place] [address] [facility] [address] [place] [address] Elio Castellanos MD [address] [place] [address] Hodgkin lymphoma of lymph nodes of neck, unspecified Hodgkin lymphoma type Social History Tobacco Use Types Packs/Day Years [...] Associated Diagnosis Comments CBC WITH DIFFERENTIAL Routine 10/18/2019 Hodgkin lymphoma of lymph nodes of neck, unspecified Hodgkin lymphoma type COMPREHENSIVE METABOLIC PANEL Routine 10/18/2019 Hodgkin lymphoma of lymph nodes of neck, unspecified Hodgkin lymphoma type documented in this encounter Results * COMPREHENSIVE METABOLIC PANEL (10/18/2019) Blood Elio Castellanos MD CHEMISTRY ORDERABLES EXTERNAL LAB * CBC WITH DIFFERENTIAL (10/18/2019) Blood Elio Castellanos MD HEMATOLOGY ORDERABLE S EXTERNAL LAB documented in this encounter Visit Diagnoses Diagnosis Hodgkin lymphoma of lymph nodes of neck, unspecified Hodgkin lymphoma type documented in this encounter Care Teams Movable Bulkhead Installer Relationship Specialty Start Date End Date Biju Whyte MD PCP - General Emergency Medicine 05/28/19 documented as of this encounter
--- OUTSIDE RECORDS SUMMARY | 2024-09-04 18:26 | XMS_ITS | Encounter Summary ---
Author Organization [facility] Address [address] [place] [address] Care Team Providers Care Cardiovascular Or Nurse Name Role Phone Biju Whyte MD Primary Care Provider [phone] Reason for Visit * Reason Comments Follow Up 4 month f/u w/labs Encounter Details Date Type Department Care Team (Late st Contact Info) Description 10/18/2019 9:00 AM BOOT LINER MAKER Office Visit [facility] Oncology and Hematology - [place] [address] [facility] [address] [place] [address] Elio Castellanos MD [address] [place] [address] Hodgkin lymphoma, unspecified, lymph nodes [...] Sign Reading Time Taken Comments Blood Pressure 111/74 10/18/2019 9:04 AM BOOT LINER MAKER Pulse 85 10/18/2019 9:04 AM BOOT LINER MAKER Temperature 36.7 ??C (98.1 ??F) 10/18/2019 9:04 AM CS T Respiratory Rate - - Oxygen Saturation 93% 10/18/2019 9:04 AM BOOT LINER MAKER Inhaled Oxygen Concentration - - Weight 90.8 kg (200 lb 1.6 oz) 10/18/2019 9:04 A M BOOT LINER MAKER Height 172.7 cm (5' 8 ) 10/18/2019 9:04 AM BOOT LINER MAKER Body Mass Index 30.43 10/18/2019 9:04 AM BOOT LINER MAKER documented in this encounter Progress Notes * Elio Castellanos MD - 10/18/2019 10:42 AM CST HEMATOLOGY / ONCOLOGY PROGRESS NOTE [...] office for follow-up visit. She denies any night sweats fevers and chills. Denies any new lumps bumps and lymphadenopathy. Weight and appetite stable. No other new complaints. Review of system Constitutional: denies fevers, sweats, fatigue, malaise, weight loss HEENT: denies sinus congestion, hearing or vision problems Respiratory: denies cough, dyspnea, wheeze Cardiovascular: denies chest pain, exertional chest pressure/discomfort, nausea, syncope, shortnessof breath GI: denies constipation, diarrhea, dsyphagia, reflux symptoms, vomiting, melena : denies dysuria, frequency, incontinence, urgency Integumentary system: no lymphadenopathy, sweats, flushing Musculoskeletal: Complain of lower back pain Neurological: denies blurry or disturbed vision, numbness/weakness, [...] 7.4 hemoglobin 14.7 platelet 398,000 creatinine 0.6. Assessment: Plan: Patient Active Problem List Diagnosis Date Noted ??? Hodgkin lymphoma, unspecified, lymph nodes of head, face, and neck 10/18/2019 Hodgkin lymphoma stage IIIb nodular sclerosis subtype status post chemotherapy with BRANDT regimen completed in November 2015 and then EBRT to the right neck completed in February 2016. Labs noted. Labs are stable. No evidence of relapse of disease on my examination. I will see her back in 6 months. Chronic lower back pain. Patient will follow with the primary care physician. Patient has a historyof degenerative disc disease. Hypercalcemia. Patient has a history of hyperparathyroidism. Calcium level is pending. Elevated liver enzymes. LFTs are pending. Patient will continue to avoid acetaminophen. Lung cancer screening. Repeat screening CT chest will be done in June 2020. Osteoporosis. Patient is on Fosamax and is stable. TOBACCO COUNSELING She was counseled to discontinue tobacco use. 10/18/2019 Elio Castellanos MD LINER MAKER documented in this encounter Plan of Treatment Scheduled Orders Name Type Priority Associated Diagnoses Orde r Schedule CBC WITH DIFFERENTIAL Lab Routine Hodgkin lymphoma, unspecified, lymph nodes of head, face, and neck Expected: 04/17/2020, Expires: 10/17/2020 LACTATE DEHYDROGENASE Lab Routine Hodgkin lymphoma, unspecified, lymph nodes of head, face, and neck Expected: 04/17/2020, Expires: 10/17/2020 documented as of this encounter Results * COMPREHENSIVE METABOLIC PANEL (10/18/2019) Blood Elio Castellanos MD CHEMISTRY ORDERABLES EXTERNAL LAB documented in this encounter Visit Diagnoses Diagnosis Hodgkin lymphoma, unspecified, lymph nodes of head, face, and neck documented in this encounter Care Teams Cardiovascular Or Nurse Relationship Specialty Start Date End Date Biju Whyte MD PCP - General Emergency Medicine 05/28/19 documented as of this encounter
--- OUTSIDE RECORDS SUMMARY | 2024-09-04 18:26 | XMS_ITS | Clinical Summary ---
Author Organization [facility] Address [address] [place] [address] Phone Care Team Providers Care Activity Therapy Specialist Name Role Phone Biju Whyte MD Primary Care Provider Allergies Active Allergy Reactions Criticality Noted Date [...] 12/03/2018 Assessment & Plan (09/30/2020 7:18 PM ELEVATOR EXAMINER AND ADJUSTER): Continue with supplemental oxygen at night. Assessment & Plan (03/29/2020 1:34 PM CDT): Overnight pulse oximetry shows significant desaturations. Will recertify her for 3 L of supplemental oxygen at night. Assessment & Plan (02/26/2020 2:57 PM CDT): Continue with 3 L of supplemental oxygen at night.Will obtain overnight pulse oximetry for recertification of nocturnal oxygen. Assessment & Plan (09/17/2019 5:24 PM ELEVATOR EXAMINER AND ADJUSTER): Continue with 3 L of supplemental oxygen at night. Assessment & Plan (03/11/2019 3:01 PM CDT): Continue with 3 L of oxygen at night. Smoking 12/03/2018 Assessment & Plan (09/30/2020 7:18 PM ELEVATOR EXAMINER AND ADJUSTER): Patient was advised to quit smoking. Obtain records of CT scan of the chest done at [facility]. Assessment & Plan (03/29/2020 1:34 PM CDT): Patient was advised to quit smoking. She is scheduled for repeat CT scan of the chest for lung cancer screening before her next visit. Assessment & Plan (02/26/2020 2:58 PM CDT): Will obtain CT scan of the chest with her next visit for lung cancer screening. Assessment & Plan (09/17/2019 5:25 PM ELEVATOR EXAMINER AND ADJUSTER): Patient continued to smoke. She was advised [...] disease) Assessment & Plan (09/30/2020 7:18 PM ELEVATOR EXAMINER AND ADJUSTER): Continue with Symbicort and p.r.n. duo nebs/albuterol inhaler. Assessment & Plan (03/29/2020 1:34 PM CDT): Continue with Symbicort, duo nebs and p.r.n. albuterol inhaler. Assessment & Plan (02/26/2020 2:58 PM CDT): CONTINUE WITH SYMBICORT AND P.R.N. ALBUTEROL INHALER. Assessment & Plan (09/17/2019 5:25 PM ELEVATOR EXAMINER AND ADJUSTER): Continue with Symbicort and albuterol inhaler. Currently [...] Administration Dates Next Due Influenza, Split 09/08/2017 Surgical History Surgery Date Site/Laterality Comments APPENDECTOMY HERNIA REPAIR HYSTERECTOMY BREAST BIOPSY Bilateral DEBORAH FUNDOPLICATION HIATAL HERNIA REPAIR Medical History Medical History Date Comments COPD (chronic obstructive pulmonary disease) (HC C) Hodgkin lymphoma (HCC) Nocturnal hypoxia Pulmonary nodule Hypothyroidism Osteoarthritis Family History Medical History Relation Name Comments Bone cancer Maternal Grandfather Lung cancer Maternal Grandfather Relation Name Status Comments Maternal Grandfather Social History Tobacco Use Types Packs/Day Years Used Date Smoking Tobacco: Every Day Cigarettes 1 30 Smokeless Tobacco: Never Comments:03/09/19: Used to smo ke up to 2ppd Personal Safety Answer Date Recorded Getting School Help Needed Not on file 08/20 Comments Unknown Sex and Gender Information Value Date Recorded Sex Assigned at Not on file Legal Sex Female 1:00 AM ELEVATOR EXAMINER AND ADJUSTER Gender Identity Not on file Sexual Orientation Not on file Obstetrics History Last Filed Vital Signs Vital Sign Reading Time Taken Comments Blood Pressure 100/78 09/28/2020 9:22 AM ELEVATOR EXAMINER AND ADJUSTER Pulse 73 09/28/2020 9:22 AM ELEVATOR EXAMINER AND ADJUSTER Temperature 35.8 ??C (96.4 ??F) 09/28/2020 9:22 AM CS T Respiratory Rate 18 09/28/2020 9:22 AM ELEVATOR EXAMINER AND ADJUSTER Oxygen Saturation 93% 09/28/2020 9:22 AM ELEVATOR EXAMINER AND ADJUSTER Inhaled Oxygen Concentration - - Weight 88.9 kg (196 lb) 09/28/2020 9:22 AM ELEVATOR EXAMINER AND ADJUSTER Height 172.7 cm (5' 8 ) 09/15/2019 1:37 PM ELEVATOR EXAMINER AND ADJUSTER Body Mass Index 29.8 09/15/2019 1:37 PM ELEVATOR EXAMINER AND ADJUSTER Plan of Treatment Not on file Insurance MEDICARE [facility] MEDICARE [employer] Care Teams Activity Therapy Specialist Relationship Specialty Start Date End Date Biju Whyte MD PCP - General Emergency Medicine 12/03/18
--- OUTSIDE RECORDS SUMMARY | 2024-09-04 18:27 | XMS_ITS | Encounter Summary ---
Author Organization [facility] Healthcare Address [address] [place] [address] Care Team Providers Care Roller Die Cutting Machine Operator Name Role Phone Unavailable Primary Care Provider Unavailabl e Encounter Details Date Type Department Care Team (Latest Contact Info) Description 06/19/2015 8:17 AM CDT Hospital Encounter [facility] OP Grover Tam MD [address] [place] [address] Hodgkin lymphoma (CMS/HCC) Social History Tobacco Use Types Packs/Day Years Used Date Smoking Tobacco: Never Assessed Comments Unknown Sex and Gender Information Value Date Recorded Sex Assigned at Not on file Legal Sex Female 1:00 AM SHELTER SUPERVISOR Gender Identity Not on file Sexual Orientation Not on file documented as of this encounter Plan of Treatment Not on file documented as of this encounter Procedures Procedure Name Priority Date/Time Associated Diagnosis Comments SCAN - PATHOLOGY 11/10/2015 12:0 0 AM SHELTER SUPERVISOR HEMOGRAM WITH MANUAL DIFFERENTIAL Routine 06/19/2015 8:39 AM CDT APTT Routine 06/19/2015 8:39 AM CDT PROTIME-INR Routine 06/19/2015 8:39 AM CDT documented in this encounter Results * SCAN - PATHOLOGY (11/10/2015 12:00 AM SHELTER SUPERVISOR) Narrative 11/10/2015 12:00 AM SHELTER SUPERVISOR Ordered by an unspecified provider. Historical Provider Final Res ult * (ABNORMAL) Hemogram with manual differential (06/19/2015 8:39 AM CDT) WBC 8.7 4.6 - 10.2 x10 3/ul 06/19/2015 8:56 AM CDT [facility] HISTORICAL RESULTS RBC 4.73 3.76 - 4.80 x10 6/ul 06/19/2015 8:56 AM CDT [facility] HISTORICAL RESULTS Hemoglobin 10.2(L) 11.0 - 15.0 g/dl 06/19/2015 8:56 AM CDT [facility] HISTORICAL RESULTS Hct 35.1 33.0 - 43.0 % 06/19/2015 8:56 AM CDT [facility] HISTORICAL RESULTS MCV 74.2(L) 80.0 - 97.0 fl 06/19/2015 8:56 AM CDT [facility] HISTORICAL RESULTS MCH 21.6(L) 27.0 - 31.2 pg 06/19/2015 8:56 AM CDT [facility] HISTORICAL RESULTS MCHC 29.1(L) 31.8 - 35.4 g/dl 06/19/2015 8:56 AM T [facility] HISTORICAL RESULTS RDW 18.3(H) 11.6 - 14.8 % 06/19/2015 8:56 AM T [facility] HISTORICAL RESULTS Plt Count 615(H) 124 - 400 x10 3/ul 06/19/2015 8:56 AM T [facility] HISTORICAL RESULTS MPV 8.5 7.4 - 10.4 fl 06/19/2015 8:56 [facility] MANUAL DIFF MANUAL DIFF --------- -- 06/19/2015 9:29 AM [facility] Neutrophils % (Manual) 74 37 - 80 % 06/19/2015 9:29 AM CDT [facility] [employer] [facility] HISTORICAL RESULTS Band Neutrophils % 2 0 - 9 % 06/19/2015 9:29 AM CDT [facility] [employer] [facility] HISTORICAL RESULTS Lymphocytes % (Manual) 15 10 - 51 % 06/19/2015 9:29 AM CDT [facility] HISTORICAL RESULTS Atypical Lymphs % 1 0 - 6 % 015 9:29 AM CDT [facility] [employer] [facility] HISTORICAL RESULTS Monocytes % (Manual) 5 0 - 12 % Eosinophils % (Manual) 3 0 - 7 % ABSOLUTE COUNTS ABSOLUTE COUNTS --------- -- Abs Neuts cells/mm3 6612 /ul Absolute Neutrophils 6.4 1.7 - 8.7 x10 3/ul Absolute Band Neuts 0.2 0.0 - 0.3 x10 3/ul Absolute Lymphocytes 1.3 0.2 - 4.6 x10 3/ul ATYPICAL LYMPH ABS# 0.1 0 - 0.3 x10 3/ul Absolute Monocytes 0.4 0.1 - 1.5 x10 3/ul Absolute Eosinophils 0.3 0.0 - 0.7 x10 3/ul Platelet Evaluation AGREE AGREE Comment:Slide review of plat elets correlates with instrument count. Polychromasia 1+ Anisocytosis 1+ Microcytosis 1+ 06/19/2015 8:39 AM CDT 06/19/2015 8:53 AM T Narrative [facility] HISTORICAL RESULTS - 06/19/2015 9:29 AM CDT Grover Tam MD LAB BLOOD ORDERABLES Final Result [facility] HISTORICAL RESULTS * Protime-INR (06/19/2015 8:39 AM CDT) PT 12.8 12.2 - 14.8 SECONDS INR 0.93 0.01 - 5.99 Comment: Recommended Therapeutic range for Oral Anticoagulant Therapy No anti-coagulation therapy ? Normal Range: ?0.8-1.4 Anti-coagulation therapy ? Low intensity therapy ?2.0-3.0 ? High intensity therapy ?? 2.5-3.5 Critical Value ? Greater than or equal to 6.0 Patients should be monitored for serious bleeding. ?? 06/19/2015 8:39 AM CDT 06/19/2015 8:53 AM CDT Grover Tam MD LAB BLOOD ORDERABLES Final Result [facility] HISTORICAL RESULTS * aPTT (06/19/2015 8:39 AM CDT) Pathologist [facility] APTT 35 24 - 38 SECONDS 06/19/2015 8:39 AM CDT 06/19/2015 8:53 AM CDT Grover Tam MD LAB BLOOD ORDERABLES Final Result [facility] HISTORICAL RESULTS documented in this encounter Visit Diagnoses Diagnosis Hodgkin lymphoma (HCC) documented in this encounter
--- OUTSIDE RECORDS SUMMARY | 2024-09-04 18:27 | XMS_ITS | Encounter Summary ---
Author Organization [facility] Healthcare Address [address] [place] [address] Care Team Providers Care Social Worker Psychiatric Name Role Phone Unavailable Primary Care Provider Unavailabl e Encounter Details Date Type Department Care Team (Latest Contact Info) Description 04/14/2018 1:20 PM CDT Hospital Encounter [facility] OP Biju Whyte MD [address] [place] [address] Localized swelling, mass and lump, right lower limb Social History Tobacco Use Types Packs/Day Years Used Date Smoking Tobacco: Never Assessed Comments Unknown Sex and Gender Information Value Date Recorded Sex Assigned at Not on file Legal Sex Female 1:00 AM CLINICAL REHABILITATION SPECIALIST Gender Identity Not on file Sexual Orientation Not on file documented as of this encounter Medications at Time of Discharge ibuprofen (ADVIL,MOTRIN) 400 mg tablet 11/22/[address] (PROTONIX) 40 mg EC tablet pantoprazole 40 mg tablet,delayed release TK 1 T PO QD 12/05/2015 ipratropium (ATROVENT) 0.02 % nebulizer solution 11/22/2015 0 documented as of this encounter Plan of Treatment Not on file documented as of this encounter Procedures Procedure Name Priority Date/Time Associated Diagnosis Comments US SOFT TISSUE MASS EXTREMITY Routine 04/14/2018 1:36 PM CDT XR TOE 5TH DIGIT RIGHT Routine 04/14/2018 12:00 AM CDT documented in this encounter Results * US Soft Tissue Mass Extremity (04/14/2018 1:36 PM CDT) Anatomical Region Laterality Modality Body N/A Ultrasound 04/14/2018 1:36 PM CDT Impressions 04/15/2018 10:08 AM CDT ?? 1.Well-circumscribed isoechoic mass measuring 2.4 cm in the right posterior thigh corresponds to the area concern. ??This likely represents a lipoma. ?? Clinical follow-up is recommended. ??If the mass becomes painful, an MRI may yield additional information. THIS IS AN ELECTRONICALLY VERIFIED FINAL REPORT 04/15/2018 10:06 AM - Electronically signed by David Sanchez M.D. LB: GUCCI D: ??04/15/2018 10:06 AM T: ??04/15/2018 10:06 AM Report ID: [id number] Reading Location: ??[id number] [EOD] Narrative 04/15/2018 10:08 AM CDT EXAM DESCRIPTION: ??US Soft Tissue Mass Extremity REASON FOR STUDY: ??Right posterior thigh mass the size of a quarter for 2 weeks. ??No known trauma. ??Not painful. TECHNIQUE: ??A Dynamic assessment was performed of the right posterior thigh by the call center dispatcher, with selected grayscale and color Doppler images acquired and recorded in PACS. COMPARISON: ??None FINDINGS: SKIN AND SUBCUTANEOUS TISSUES: There is a well-circumscribed, isoechoic 2.4 x 0.7 x 0.2 cm mass within the subcutaneous tissues of the right posterior thigh. ??This corresponds to the palpable abnormality. ??No internal vascularity. ??No drainable fluid collection. DEEP SOFT TISSUES/MUSCLES: No masses. No fluid collections. No edema. OTHER: No other significant finding. Procedure Note Provider, MD Fermin - 01/23/2021 EXAM DESCRIPTION: US Soft Tissue Mass Extremity REASON FOR STUDY: Right posterior thigh mass the size of a quarter for 2 weeks. No known trauma. Not painful. TECHNIQUE: A Dynamic assessment was performed of the right posteriorthigh by the call center dispatcher, with selected grayscale and color Doppler images acquiredand recorded in PACS. COMPARISON: None FINDINGS: SKIN AND SUBCUTANEOUS TISSUES: There is a well-circumscribed, isoechoic2.4 x 0.7 x 0.2 cm mass within the subcutaneous tissues of the right posterior thigh. This corresponds to the palpable abnormality. No internal vascularity. No drainable fluid collection. DEEP SOFT TISSUES/MUSCLES: No masses. No fluid collections. No edema. OTHER: No other significant finding. IMPRESSION: 1.Well-circumscribed isoechoic mass measuring 2.4 cm in the rightposterior thigh corresponds to the area concern. This likely represents a lipoma. Clinical follow-up is recommended. If the mass becomes painful, an MRImay yield additional information. THIS IS AN ELECTRONICALLY VERIFIED FINAL REPORT 04/15/2018 10:06 AM - Electronically signed by David Sanchez M.D. LB: GUCCI Report ID: [id number] Reading Location: [id number] [EOD] us Biju Whyte MD IMG US PROCEDURES Final Result * XR Toe 5th Digit Right Minimum 2 Views (04/14/2018 12:00 AM CDT) Anatomical Region Laterality Modality Lower Extremities, Foot, Toes Right Ra diographic Imaging 04/14/2018 Impressions 04/15/2018 10:41 AM CDT ?? 1.Subtle nondisplaced fracture head neck junction of the proximal phalanx of the right little toe. THIS IS AN ELECTRONICALLY VERIFIED FINAL REPORT 04/15/2018 10:38 AM - Electronically signed by Hector Natarajan M.D. MJ: [email or web address] D: ??04/15/2018 10:38 AM T: ??04/15/2018 10:38 AM Report ID: [id number] Reading Location: ??[id number] [EOD] Narrative 04/15/2018 10:41 AM CDT EXAM DESCRIPTION: ??Toe RT 5th 2 View Min REASON FOR STUDY: ??Stubbed toe on dresser 6 days ago with persistent pain and swelling. COMPARISON: ??No prior TECHNIQUE: ??AP, lateral, and oblique images acquired of the right little toe FINDINGS: BONES/JOINTS: There is subtle cortical irregularity along the medial aspect of the head neck junction of the proximal phalanx of the right little toe. ?? Subtle nondisplaced fracture. SOFT TISSUES: Unremarkable. OTHER: No other significant finding. Procedure Note Provider, MD Fermin - 01/23/2021 EXAM DESCRIPTION: Toe RT 5th 2 View Min REASON FOR STUDY: Stubbed toe on dresser 6 days ago with persistent painand swelling. COMPARISON: No prior TECHNIQUE: AP, lateral, and oblique images acquired of the right littletoe FINDINGS: BONES/JOINTS: There is subtle cortical irregularity along the medialaspect of the head neck junction of the proximal phalanx of the right little toe. Subtle nondisplaced fracture. SOFT TISSUES: Unremarkable. OTHER: No other significant finding. IMPRESSION: 1.Subtle nondisplaced fracture head neck junction of the proximal phalanxof the right little toe. THIS IS AN ELECTRONICALLY VERIFIED FINAL REPORT 04/15/2018 10:38 AM - Electronically signed by Hector Natarajan M.D. MJ: [email or web address] Report ID: [id number] Reading Location: [id number] [EOD] Biju Whyte MD IMG XR PROCEDURES Final Result documented in this encounter Visit Diagnoses Diagnosis Localized swelling, mass and lump, right lower limb documented in this encounter
--- OUTSIDE RECORDS SUMMARY | 2024-09-04 18:27 | XMS_ITS | Encounter Summary ---
Author Organization [facility] Healthcare Address [address] [place] [address] Care Team Providers Care Extracorporeal Technician Name Role Phone Biju Whyte MD Primary Care Provider [phone] Encounter Details Date Type Department Care Team (Late st Contact Info) Description 04/23/2019 11:48 AM CDT - 04/23/2019 7:01 PM CDT Hospital Encounter [facility] INTERIM Jaquan Gentile MD [address] [place] [address] [address] Discharge Disposition: Discharge to home or self care Social History Tobacco Use Types Packs/Day Years Used Date Smoking Tobacco: Every Day Cigarettes 1 30 Smokeless Tobacco: Never Comments:03/09/19: Used to smo ke up to 2ppd Comments Unknown Sex and Gender Information Value Date Recorded Sex Assigned at Not on file 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 Gender Identity Not on file Sexual Orientation Not on file documented as of this encounter Last Filed Vital Signs Vital Sign Reading Time Taken Comments Blood Pressure 114/76 04/23/2019 12:19 PM CDT Pulse 81 04/23/2019 12:19 PM CDT Temperature 36.7 ??C (98 ??F) 04/23/2019 12:19 PM CDT Respiratory Rate - - Oxygen Saturation 93% 04/23/2019 12:19 PM CDT Inhaled Oxygen Concentration - - Weight 89.8 kg (198 lb) 04/23/2019 12:19 PM CDT Height 172.7 cm (5' 8 ) 04/23/2019 12:19 PM CDT Body Mass Index 30.11 04/23/2019 12:19 PM CDT documented in this encounter Medications at Time of Discharge fenofibrate (TRIGLIDE) 160 mg tablet 01/11/2019 ibuprofen (ADVIL,MOTRIN) 400 mg tablet 11/22/[address] (PROTONIX) 40 mg EC tablet pantoprazole 40 mg tablet,delayed release TK 1 T PO QD 12/05/2015 albuterol HFA (PROVENTIL HFA,VENTOLIN HFA,PROAIR HFA) 90 mcg/actuation inhaler INHALE 2 PUFFS BY MOUTH EVERY 6 HOURS NEEDED 54 g 03/31/2019 9 alendronate (FOSAMAX) 70 mg tablet TAKE 1 TABLET BY MOUTH EVERY WEEK 0 12/04/2018 1 atorvastatin (LIPITOR) 80 mg tablet TK 1 T PO QHS 0 12/04/2018 0 buPROPion (WELLBUTRIN) 100 mg tablet Take 1 tablet (100 mg total) by mouth 2 (two) times a day 60 tablet 3 03/09/2019 0 fluticasone propionate (FLONASE) 50 mcg/actuation nasal spray fluticasone propionate 50 mcg/actuation nasal spray,suspension 1 ipratropium (ATROVENT) 0.02 % nebulizer solution 11/22/2015 0 levothyroxine (SYNTHROID) 100 mcg tablet daily 1 metFORMIN XR (GLUCOPHAGE XR) 500 mg 24 hr tablet 01/11/2019 1 omeprazole (PriLOSEC) 20 mg capsule TK ONE C PO QD PRN 0 12/04/2018 0 oxybutynin XL (DITROPAN-XL) 10 mg 24 hr tablet TK 1 T PO QD 0 12/04/2018 02 0 SYMBICORT 160-4.5 mcg/actuation inhaler INHALE 2 PUFFS BY MOUTH TWICE DAILY. RINSE MOUTH AFTER USE 1 Inhaler 2 04/16/2019 9 VENTOLIN HFA 90 mcg/actuation inhaler INHALE 2 PUFFS BY MOUTH EVERY 6 HOURS NEEDED 18 g 1 04/16/2019 9 documented as of this encounter Discharge Disposition Disposition Code Departure Means Destination Discharge to home or self care documented in this encounter Plan of Treatment Not on file documented as of this encounter Procedures Procedure Name Priority Date/Time Associated Diagnosis Comments CARDIOLOGY REPORT 04/26/2019 12: 00 AM CDT CARDIAC CATHETERIZATION 04/23/20 2:00 PM CDT ALLERGEN LATEX (MISC) IGE Routine 04/23/2019 12:27 PM CDT CBC WITH AUTO DIFFERENTIAL Routine 04/23/2019 12:27 PM CDT APTT Routine 04/23/2019 12:27 PM CDT PROTIME-INR Routine 04/23/2019 12:27 PM CDT ANTIBODY SCREEN Routine 04/23/2019 12:27 PM CDT TYPE AND SCREEN Routine 04/23/2019 12:27 PM CDT CHOLESTEROL, LDL, DIRECT Routine 04/23/2019 12:27 PM CDT LIPID PANEL Routine 04/23/2019 12:27 PM CDT BASIC METABOLIC PANEL Routine 04/23/2019 12:27 PM CDT ECG 12-LEAD 04/23/2019 12:16 PM CDT CARDIOLOGY REPORT 04/23/2019 12: 00 AM CDT documented in this encounter Results * CARDIOLOGY REPORT (04/26/2019 12:00 AM CDT) Anatomical Region Laterality Modality Other Narrative 04/26/2019 12:00 AM CDT Ordered by an unspecified provider. us Historical Provider [facility] Final Result * Cardiac Catheterization (04/23/2019 2:00 PM CDT) Anatomical Region Laterality Modality X-Ray Angiograph y 04/23/2019 3:48 PM CDT Narrative 04/23/2019 5:01 PM CDT ? Patient Name: NAYELI HARRINGTON C ? MR#: [id number] ? Status: DEP SDC ? D.O.B: 1965 Age: ??53 ?Sex: Female ? ADM/SER Dt: 04/23/19 ?Disch Dt: 04/23/19 ?LOC: H.CATH ? Ordering Phy: Jaquan Gentile MD ? Order #[id number] ? Cath, Diagnostic ([facility], [facility]) ?? Jaquan Gentile MD ? Signed ?? DATE OF SERVICE: ?? 04/23/2019 ? REASON FOR EVALUATION: ??Chest pain, abnormal stress test. ? HISTORY OF PRESENT ILLNESS: ??The patient is a 53-year-old lady, history of dyslipidemia, hypertension, was seen because of chest pain, underwent stress test, was abnormal. ??Brought to the slabber light for elective cardiac catheterization for definitive diagnosis of coronary artery disease. ? CENTRAL SERVICES TECH: ??Jaquan Gentile MD. ? COMPLICATIONS: ??None. ? BLOOD LOSS: ??None. ? SEDATION: ??Conscious sedation using 1 mg Versed, 25 mcg fentanyl. ??Starting time is 3:18. ??Ending time is 3:45. ? TECHNIQUE: ??After informed consent was obtained from the patient, the patient was brought to the cardiac catheterization lab, placed on the slabber light table, prepped and draped in the usual sterile fashion. ??A 4-Gambian sheath was inserted in the left common femoral artery using modified Seldinger technique. ??The sheath was flushed. ??Through the sheath, a 4-Gambian JL4 catheter was inserted, advanced into the left coronary artery. ??Left coronary artery angiogram was obtained. ??The catheter was exchanged over the guidewire and a 4-Gambian JR4 catheter was advanced to the right coronary artery. ??Right coronary artery angiogram was obtained. ??The catheter was exchanged over the guidewire, and a 4-Gambian pigtail catheter advanced to the left ventricle; left ventricular angiogram was obtained. ??The catheter then pulled. ??The sheath was pulled ___. ??The patient tolerated the procedure well, with no complications, and was taken from the slabber light to room in stable condition with stable vital signs. ? HEMODYNAMICS: ??Heart rate 79, aortic pressure 101/66, LV pressure is 122/2, LVEDP of 11. ? ANGIOGRAPHIC FINDINGS: ?? 1. ??Left main medium size artery, no stenosis. ?? 2. ??LAD minimal irregularity, occasional calcification. ??No obstructive lesion. ?? 3. ??Left circumflex artery medium size, no stenosis. ?? 4. ??RCA dominant vessel, minimal irregularity, no obstructive lesion noted. ? LV gram showed normal size left ventricle, normal left ventricular systolic function. ? SUMMARY: ?? 1. ??Mild coronary artery disease. ?? 2. ??Normal left ventricular systolic function. ? RECOMMENDATIONS: ??Medical treatment, risk factor modification. ? NTS ? Job: [id number] ? Dictated By: Jaquan Gentile MD ?? Dictated For: Jaquan ??MD Seferino ? <Electronically signed by Jaquan Gentile MD> ? 04/26/19 0816 ?? Resulting Agency Comment O Procedure Note Al Jaquan Gallegos MD - 04/26/2019 Patient Name: NAYELI HARRINGTON Bj #: [id number] Status: [facility] D.O.B: 1965 Age: 53Sex: Female ADM/SER Dt: 04/23/19 Disch Dt: 04/23/19LOC: H.CATH Ordering Phy: Jaquan Gentile MD Order #[id number] Cath, Diagnostic ([facility], [facility]) Jaquan Gentile MD Signed DATE OF SERVICE: 04/23/2019 REASON FOR EVALUATION: Chest pain, abnormal stress test. HISTORY OF PRESENT ILLNESS: The patient is a 53-year-old lady, historyof dyslipidemia, hypertension, was seen because of chest pain, underwent stress test, wasabnormal. Brought to the slabber light for elective cardiac catheterization for definitive diagnosis ofcoronary artery disease. CENTRAL SERVICES TECH: Jaquan Gentile MD. COMPLICATIONS: None. BLOOD LOSS: None. SEDATION: Conscious sedation using 1 mg Versed, 25 mcg fentanyl.Starting time is 3:18. Ending time is 3:45. TECHNIQUE: After informed consent was obtained from the patient, thepatient was brought to the cardiac catheterization lab, placed on the slabber light table, prepped anddraped in the usual sterile fashion. A 4-Gambian sheath was inserted in the left common femoral arteryusing modified Seldinger technique. The sheath was flushed. Through the sheath, a 4-Gambian [id number] was inserted, advanced into the left coronary artery. Left coronary artery angiogramwas obtained. The catheter was exchanged over the guidewire and a 4-Gambian JR4 catheter was advancedto the right coronary artery. Right coronary artery angiogram was obtained. The catheter wasexchanged over the guidewire, and a 4-Gambian pigtail catheter advanced to the left ventricle;left ventricular angiogram was obtained. The catheter then pulled. The sheath was pulled___. The patient tolerated the procedure well, with no complications, and was taken fromthe slabber light to room in stable condition with stable vital signs. HEMODYNAMICS: Heart rate 79, aortic pressure 101/66, LV pressure is122/2, LVEDP of 11. ANGIOGRAPHIC FINDINGS: 1. Left main medium size artery, no stenosis. 2. LAD minimal irregularity, occasional calcification. No obstructivelesion. 3. Left circumflex artery medium size, no stenosis. 4. RCA dominant vessel, minimal irregularity, no obstructive lesionnoted. LV gram showed normal size left ventricle, normal left ventricularsystolic function. SUMMARY: 1. Mild coronary artery disease. 2. Normal left ventricular systolic function. RECOMMENDATIONS: Medical treatment, risk factor modification. NTS Job: [id number] Dictated By: Jaquan Gentile MD Dictated For: Jaquan Gentile MD <Electronically signed by Jaquan Gentile MD> 04/26/19 0816 Jaquan Gentile MD CV CARDIAC CATH PROCEDURES Fi nal Result * Latex IgE (04/23/2019 12:27 PM CDT) Scoring Guide See Note [facility] Comment: REFERENCE INTERVAL: Allergen, Interpretation Less than 0.10 kU/L......Class 0.....No significant level detected 0.10-0.34 kU/L...........Class 0/1...Clinical relevance undetermined 0.35-0.70 kU/L...........Class 1.....Low 0.71-3.50 kU/L...........Class 2.....Moderate 3.51-17.50 kU/L..........Class 3.....High 17.51-50.00 kU/L.........Class 4.....Very High 50.01-100.00 kU/L........Class 5.....Very High Greater than 100.00kU/L..Class 6.....Very High Allergen results of 0.10-0.34 kU/L are intended for specialist use as the clinical relevance is undetermined. Even though increasing ranges are reflective of increasing concentrations of allergen-specific IgE, these concentrations may not correlate with the degree of clinical response or skin testing results when challenged with a specific allergen. The correlation of allergy laboratory results with clinical history and in vivo reactivity to specific allergens is essential. A negative test may not rule out clinical allergy or even anaphylaxis. Performed by [facility], [address] [place] [address],[place] [id number] [email or web address], Jacob Mancera MD, Lab. Director Latex Allergen <0.10 <=0.34 kU/L [facility] Comment: Performed by [facility], [address] [place] [address] [email or web address], Jacob Mancera MD, Lab. Director 04/23/2019 12:2 7 PM CDT 04/23/2019 12:33 PM CDT Narrative Resulting Agency Comment SDC Jaquan Gentile MD LAB BLOOD ORDERABLES Final Re sult Performing Organization Address [facility] de Phone Number [facility] [address] [place], [place] [address] [place] [phone] * Cholesterol, LDL, direct (04/23/2019 12:27 PM CDT) LDL Cholesterol Measurd 123 0 - 129 mg/dL [facility] Comment: National Lipid Association/NCEP Guidelines: ??Optimal ? < 100 mg/dL ??Near Optimal ?100-129 mg/dL ??Borderline high 130-159 mg/dL ??High ?>=160 mg/dL 04/23/2019 12:2 7 PM CDT 04/23/2019 12:33 PM CDT Narrative Resulting Agency Comment SDC Jaquan Gentile MD LAB BLOOD ORDERABLES Final Re sult Performing Organization Address [facility] de Phone Number [facility] [address] [phone] * (ABNORMAL) Lipid panel (04/23/2019 12:27 PM CDT) Triglycerides 322(H) 0 - 149 mg/dL [facility] Comment: LDL(measured) to follow due to Triglycerides >250 mg/dL. National Lipid Association/NCEP Guidelines: ?? Normal ?< 150 mg/dL ?? Borderline high ?? 150-199 mg/dL ?? High ?200-499 mg/dL ?? Very High ? >=500 mg/dL Cholesterol 191 0 - 199 mg/dL [facility] Comment: National Lipid Association/NCEP Guidelines: Desirable ? < 200 mg/dL Borderline high: ??200-239 mg/dL High Risk: ?>=240 mg/dL HDL Cholesterol 36 mg/dL [facility] Comment: Reference Ranges: ? Males: >=40 mg/dL ? Females: >=50 mg/dL Cholesterol/HDL Ratio 5.3 [facility] Comment: Optimal ??< 3.5:1 High ? > 5:1 04/23/2019 12:2 7 PM CDT 04/23/2019 12:33 PM CDT Narrative Resulting Agency Comment SDC us Jaquan Gentile MD LAB BLOOD ORDERABLES Final Re sult [facility] [address] [place] [address], [facility] [phone] * Basic metabolic panel (04/23/2019 12:27 PM CDT) Sodium 140 135 - 145 mmol/L [facility] Potassium 4.1 3.3 - 5.1 mmol/L [facility] Chloride 106 96 - 108 mmol/L [facility] Carbon Dioxide 23 22 - 32 mmol/L [facility] Anion Gap 11 7 - 16 [facility] Glucose 98 70 - 100 mg/dL [facility] BUN 10 8 - 25 mg/dL [facility] Creatinine 0.6 0.5 - 1.1 mg/dL [facility] Comment: NOTE: Estimated GFR (Cockroft-Gault) will NOT be calculated unless patient Height and Weight were entered. Also, Kidney Disease Stage (GFR) and Estimated GFR (Cockroft-Gault) will NOT be calculated if Creatinine result is <0.2. Kidney Disease Stage >90 mL/MIN [facility] Comment: NOTE; ??The GFR is an estimated value using the creatinine, sex, age, and race of the patient. THE Estimated Kidney Disease GFR is validated for AGES 18-70 YEARS STAGE ?mL/Min ?DESCRIPTION ??1 ?90 mL/min or more ?Normal or elevated GFR ??2 ? 60-89 mL/min ?Mildly decreased GFR ??3 ? 30-59 mL/min ?Moderately decreased GFR ??4 ? 15-29 mL/min ?Severely decreased GFR ??5 ? <15 mL/min ? Kidney failure or on dialysis Est GFR (Cockcroft-G) 126 ml/MIN [facility] Comment: Estimated GFR(Cockroft-Gault)is used to calculate patient medication dosage Calcium 9.4 8.6 - 10.3 mg/dL [facility] 04/23/2019 12:2 7 PM CDT 04/23/2019 12:33 PM CDT Narrative Resulting Agency Comment SDC Jaquan Gentile MD LAB BLOOD ORDERABLES Edited R esult - Final [facility] [address] [place] [address], [facility] [phone] * Antibody screen (04/23/2019 12:27 PM CDT) Antibody Screen NEGATIVE [facility] 04/23/2019 12:2 7 PM CDT 04/23/2019 12:33 PM CDT Narrative Resulting Agency Comment SDC Jaquan Gentile MD LAB BLOOD BANK TEST ORDERABLE S Final Result Performing Organization Address [facility]/ZIP Co de Phone Number [address] [phone] * Type and screen (04/23/2019 12:27 PM CDT) Blood Type AN [facility] 04/23/2019 12:2 7 PM CDT 04/23/2019 12:33 PM CDT Narrative [facility] - 04/23/2019 1:35 PM CDT DOS 04/23/19 Surgery card cath N Resulting Agency Comment SDC Jaquan Gentile MD LAB BLOOD BANK TEST ORDERABLE S Final Result Performing Organization Address [facility] Co de Phone Number [address] [phone] * aPTT (04/23/2019 12:27 PM CDT) APTT 29 27 - 36 SECONDS [facility] Comment: New reference ranges in use 03-05-19. 04/23/2019 12:2 7 PM CDT 04/23/2019 12:33 PM CDT Narrative Resulting Agency Comment SDC Jaquan Gentile MD LAB BLOOD ORDERABLES Final Re sult Performing Organization Address City/[facility]/[place] [address], [facility] [phone] * Protime-INR (04/23/2019 12:27 PM CDT) PT 12.8 12.2 - 14.8 SECONDS [facility] Comment: New reference ranges in use 19. INR 0.94 [facility] Comment: Recommended Therapeutic range for Oral Anticoagulant Therapy No anti-coagulation therapy ? Normal Range: ?0.8-1.4 Anti-coagulation therapy ? Low intensity therapy ?2.0-3.0 ? High intensity therapy ?? 2.5-3.5 Critical Value ? Greater than or equal to 5.0 Patients should be monitored for serious bleeding. 04/23/2019 12:2 7 PM CDT 04/23/2019 12:33 PM CDT Narrative Resulting Agency Comment SDC us Jaquan Gentile MD LAB BLOOD ORDERABLES Final Re sult [facility] [address] [place] [address], [facility] [phone] * (ABNORMAL) CBC with auto differential (04/23/2019 12:27 PM CDT) WBC 8.9 3.8 - 9.9 X10 3/ul [facility] RBC 4.75 3.90 - 5.20 x10 6/ul [facility] Hemoglobin 13.2 11.9 - 15.5 g/dL [facility] Hct 41.7 35.6 - 45.5 % [facility] MCV 87.8 81.3 - 96.4 fl [facility] MCH 27.8 27.1 - 33.3 pg [facility] MCHC 31.7(L) 32.3 - 35.7 g/dl [facility] RDW 15.9(H) 11.1 - 14.9 % [facility] Plt Count 390 150 - 400 x10 3/ul [facility] MPV 8.6(L) 9.1 - 12.3 fl [facility] Neut % 70.5 % [facility] Immature Gran % 0.7 % [facility] Lymph % 18.6 % [facility] Meriwether % 6.9 % [facility] Eos % 2.6 % [facility] AUTO BASO % 0.7 % [facility] NEUTROPHIL ABS # 6.3 1.7 - 6.5 x10 3/ul [facility] Immature Gran # 0.1 0.0 - 0.1 x10 3/ul [facility] Absolute Lymphs (auto) 1.7 0.8 - 3.3 x10 3/ul [facility] Absolute Monos (auto) 0.6 0.2 - 0.8 x10 3/ul [facility] Absolute Eos (auto) 0.2 0.0 - 0.5 x10 3/ul [facility] BASOPHIL ABS # 0.1 0.0 - 0.1 x10 3/ul [facility] Nucleat RBC Rel Count 0.0 #/100WBC [facility] NRBC abs 0.00 0.00 - 0.01 x10 3/ul [facility] Absolute Neutrophils 6,300 200 - 8,000 /ul [facility] 04/23/2019 12:2 7 PM CDT 04/23/2019 12:33 PM CDT Narrative Resulting Agency Comment SDC us Jaquan Gentile MD LAB BLOOD ORDERABLES Final Re sult [facility] [address] [place] [address], [facility] [phone] * ECG 12 lead (04/23/2019 12:16 PM CDT) Ventricular Rate EKG/Min 76 BPM [facility] Atrial Rate 76 BPM [facility] [place]-Interval (MSEC) 158 ms [facility] QRS-Interval (MSEC) 84 ms [facility] QT-Interval (MSEC) 388 ms [facility] QTc 436 ms [facility] P [place] 8 degrees [facility] R [place] -49 degrees [facility] T [place] 1 degrees [facility] Diagnosis Normal sinus rhythm nonspecific IVCD NSST changes When compared with ECG of 16-NOV-2015 18:54, No significant change was found [facility] 04/23/2019 12:1 6 PM CDT 04/23/2019 3:46 PM CDT Narrative Resulting Agency Comment OUTPAT us Jaquan Gentile MD ECG ORDERABLES Final Result [address] * CARDIOLOGY REPORT (04/23/2019 12:00 AM CDT) Anatomical Region Laterality Modality Other Narrative 04/23/2019 12:00 AM CDT Ordered by an unspecified provider. us Historical Provider [facility] Final Result documented in this encounter Visit Diagnoses Not on filedocumented in this encounter Care Teams Extracorporeal Technician Relationship Specialty Start Date End Date Biju Whyte MD PCP - General Emergency Medicine 12/03/18 documented as of this encounter
--- OUTSIDE RECORDS SUMMARY | 2024-09-04 18:27 | XMS_ITS | Encounter Summary ---
Author Organization [facility] Healthcare Address [address] [place] [address] Care Team Providers Care Student Support Advisor Name Role Phone Unavailable Primary Care Provider Unavailabl e Encounter Details Date Type Department Care Team (Latest Contact Info) Description 06/15/2015 7:57 AM CDT Hospital Encounter [facility] OP Piter Ponce MD [address] [place] [address] Encounter for observation for other suspected diseases and conditions ruled out; Other prison (current) drug therapy; Hodgkin lymphoma (CMS/HCC) Social History Tobacco Use Types Packs/Day Years Used Date Smoking Tobacco: Never Assessed Comments Unknown Sex and Gender Information Value Date Recorded Sex Assigned at Not on file 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 us Historical Provider NURSING COMMUNICATION Fin al Result documented in this encounter Visit Diagnoses Diagnosis Encounter for observation for other suspected diseases and conditions ruled out Other prison (current) drug therapy Hodgkin lymphoma (HCC) documented in this encounter
--- OUTSIDE RECORDS SUMMARY | 2024-09-04 18:27 | XMS_ITS | Encounter Summary ---
Author Organization [facility] Healthcare Address [address] [place] [id number] Care Team Providers Care Bioinformatics Support Specialist Name Role Phone Unavailable Primary Care Provider Unavailabl e Encounter Details Date Type Department Care Team (Latest Contact Info) Description 10/24/2015 12:30 AM [facility] - 10/29/2015 5:30 PM [facility] Hospital Encounter [facility] Elie Matos MD [address] [place] [id number] Pneumonia; Hodgkin lymphoma of lymph nodes of head, face, or neck (CMS/HCC); Agranulocytosis secondary to cancer chemotherapy (CODE) ([facility]); Chronic obstructive pulmonary disease with acute exacerbation (CMS/HCC); Dependence on supplemental oxygen; Hypoxemia; Adverse effect of antineoplastic and immunosuppressive drugs, initial encounter; Right upper quadrant pain; Hyperlipidemia; Cigarette nicotine dependence, uncomplicated; Gastro-esophageal reflux disease without esophagitis; Diaphragmatic hernia without obstruction or gangrene; Weakness; intermission coordinator current use of antibiotics; Other retirement (current) drug therapy; Allergy status to narcotic agent Social History Tobacco Use Types Packs/Day Years Used Date Smoking Tobacco: Never Assessed Comments Unknown Sex and Gender Information Value Date Recorded Sex Assigned at Not on file Legal Sex Female 1:00 AM [facility] Gender Identity Not on file Sexual Orientation Not on file documented as of this encounter Last Filed Vital Signs Vital Sign Reading Time Taken Comments Blood Pressure 113/78 10/25/2015 2:41 PM [facility] Pulse 80 10/25/2015 2:41 PM [facility] Temperature 36.4 ??C (97.5 ??F) 10/25/2015 2:41 PM CS T Respiratory Rate - - Oxygen Saturation 90% 10/25/2015 2:41 PM [facility] Inhaled Oxygen Concentration - - Weight 85.5 kg (188 lb 7 oz) 10/25/2015 2:41 PM [facility] Height 172.7 cm (5' 8 ) 10/25/2015 2:41 PM [facility] Body Mass Index 28.65 10/25/2015 2:41 PM [facility] documented in this encounter Plan of Treatment Not on file documented as of this encounter Procedures Procedure Name Priority Date/Time Associated Diagnosis Comments OXYGEN SATURATION, ARTERIAL Routine 10/28/2015 10:25 AM [facility] OXYGEN SATURATION, ARTERIAL Routine 10/27/2015 2:46 PM [facility] OXYGEN SATURATION, ARTERIAL Routine 10/27/2015 10:36 AM [facility] US RUQ Routine 10/27/2015 12:00 AM [facility] OXYGEN SATURATION, ARTERIAL Routine 10/26/2015 10:15 AM [facility] OXYGEN SATURATION, ARTERIAL Routine 10/26/2015 9:25 AM [facility] HEMOGRAM WITH MANUAL DIFFERENTIAL Routine 10/26/2015 7:34 AM [facility] OXYGEN SATURATION, ARTERIAL Routine 10/25/2015 2:17 PM [facility] OXYGEN SATURATION, ARTERIAL Routine 10/25/2015 9:45 AM [facility] CBC WITH AUTO DIFFERENTIAL Routine 10/25/2015 7:39 AM [facility] BASIC METABOLIC PANEL Routine 10/25/2015 7:39 AM [facility] OXYGEN SATURATION, ARTERIAL Routine 10/24/2015 1:40 PM [facility] OXYGEN SATURATION, ARTERIAL Routine 10/24/2015 10:00 AM [facility] BLOOD GAS WITH LACTATE Routine 6 11:14 PM [facility] TROPONIN I Routine 10/23/2015 11:03 PM [facility] TNI WITH LIPID PANEL Routine 10/23/2015 7:12 PM [facility] HEMOGRAM WITH MANUAL DIFFERENTIAL Routine 10/23/2015 7:12 PM [facility] APTT Routine 10/23/2015 7:12 PM [facility] PROTIME-INR Routine 10/23/2015 7:12 PM [facility] CHOLESTEROL, LDL, DIRECT Routine 10/23/2015 7:12 PM [facility] COMPREHENSIVE METABOLIC PANEL Routine 10/23/2015 7:12 PM [facility] XR CHEST PA LATERAL 2 VIEWS Routine 10/23/2015 12:00 AM [facility] documented in this encounter Results * Oxygen saturation, arterial (10/28/2015 10:25 AM [facility]) Specimen Type Oximeter 10/28/2015 10:46 AM [facility] HISTORICAL RESULTS Puncture Site FINGER 10/28/2015 10:46 AM [facility] [employer] HISTORICAL RESULTS O2 Sat Pulse Oximetry 92.0 >=90.0 % 10/28/2015 10:46 AM [facility] HISTORICAL RESULTS FiO2 21.0 % 10/28/2015 10:46 AM [facility] [employer] HISTORICAL RESULTS BG Specimen Comment [id number] 10/28/2015 10:46 AM [facility] [employer] HISTORICAL RESULTS Meringuer ID MAG 10/28/2015 10:46 AM [facility] [employer] HISTORICAL RESULTS 10/28/2015 10:2 5 AM [facility] 10/28/2015 10:46 AM [facility] us Elie Matos MD LAB BLOOD ORDERABLES Final Result [facility] [employer] HISTORICAL RESULTS * Oxygen saturation, arterial (10/27/2015 2:46 PM [facility]) Specimen Type Oximeter 10/27/2015 2:47 PM [facility] [employer] HISTORICAL RESULTS Puncture Site FINGER 10/27/2015 2:47 PM [facility] [employer] HISTORICAL RESULTS O2 Sat Pulse Oximetry 94.0 >=90.0 % 10/27/2015 2:47 PM [facility] HISTORICAL RESULTS FiO2 21.0 % 10/27/2015 2:47 PM [facility] HISTORICAL RESULTS Meringuer ID [id number] 10/27/2015 2:47 PM [facility] HISTORICAL RESULTS 10/27/2015 2:46 PM [facility] 10/27/2015 2:46 PM [facility] Elie Matos MD LAB BLOOD ORDERABLES Final Result Performing Organization Address [facility] de Phone Number [facility] HISTORICAL RESULTS * Oxygen saturation, arterial (10/27/2015 10:36 AM [facility]) Specimen Type Oximeter 10/27/2015 10:48 AM [facility] HISTORICAL RESULTS Puncture Site FINGER O2 Sat Pulse Oximetry 93.0 >=90.0 % FiO2 21.0 % 10/27/2015 10:48 AM [facility] HISTORICAL RESULTS Meringuer ID [facility] 10/27/2015 10:3 6 AM [facility] 10/27/2015 10:48 AM [facility] Elie Matos MD LAB BLOOD ORDERABLES Final Result Performing Organization Address [facility] Phone Number [facility] HISTORICAL RESULTS * US RUQ (10/27/2015 12:00 AM [facility]) Anatomical Region Laterality Modality Abdomen N/A Ultrasound 10/27/2015 Impressions 10/27/2015 3:59 PM [facility] ??Gallbladder wall polyps measuring under 6 mm caliber. No sonographic findings of cholecystitis, biliary obstruction or definite cholelithiasis. Increased hepatic echotexture suggesting hepatic steatosis and/or hepatocellular disease. THIS IS AN ELECTRONICALLY VERIFIED REPORT 10/27/2015 3:56 PM: ??Dusty Melendrez M.D. Dusty Melendrez M.D. TA:natalie 03:56 PM 03:56 PM MON [EOD] Narrative 10/27/2015 3:59 PM [facility] EXAMINATION: Right upper quadrant abdominal ultrasound HISTORY: 50-year-old female presenting with right upper abdominal quadrant pain that has been intermittent in the past but has flare-up in the past couple of days. COMPARISON: ??None. FINDINGS: ??There are non mobile filling defects along the wall of the gallbladder consistent with polyps, the largest about 5-6 mm diameter. ??No shadowing dependent echogenicities to indicate definite cholelithiasis. ??The gallbladder wall otherwise appears free of thickening and no pericholecystic fluid is seen. ??The common bile duct measured 4.4 mm caliber which is normal and no intrahepatic biliary ductal distention is seen. Portions of the dome of the liver difficult to delineate due to shadowing ostensibly related to body habitus and technical considerations. There is a diffuse increase in hepatic echotexture suggesting hepatic steatosis and/or hepatocellular disease. Patency of the portal vein is demonstrated with color flow Doppler. The right kidney measured 10 cm length by 5.0 x 5.9 in centimeters depth and width. ??No hydronephrosis. ??Normal right renal cortical echotexture. The visualized neck and body regions of the pancreas appear unremarkable with much of the head and tail the pancreas obscured by shadowing from bowel. Procedure Note Provider, MD Fermin - 01/23/2021 EXAMINATION: Right upper quadrant abdominal ultrasound HISTORY: 50-year-old female presenting with right upper abdominal quadrant pain that has been intermittent in the past but has flare-up in the past couple of days. COMPARISON: None. FINDINGS: There are non mobile filling defects along the wall of the gallbladder consistent with polyps, the largest about 5-6 mm diameter. No shadowing dependent echogenicities to indicate definite cholelithiasis.The gallbladder wall otherwise appears free of thickening and nopericholecystic fluid is seen. The common bile duct measured 4.4 mm caliber which isnormal and no intrahepatic biliary ductal distention is seen. Portions of the dome of the liver difficult to delineate due to shadowing ostensibly related to body habitus and technical considerations. There glenroy diffuse increase in hepatic echotexture suggesting hepatic steatosisand/or hepatocellular disease. Patency of the portal vein is demonstrated withcolor flow Doppler. The right kidney measured 10 cm length by 5.0 x 5.9 in centimeters depthand width. No hydronephrosis. Normal right renal cortical echotexture. The visualized neck and body regions of the pancreas appear unremarkable withmuch of the head and tail the pancreas obscured by shadowing from bowel. IMPRESSION: Gallbladder wall polyps measuring under 6 mm caliber. No sonographic findings of cholecystitis, biliary obstruction or definite cholelithiasis. Increased hepatic echotexture suggesting hepatic steatosis and/or hepatocellular disease. THIS IS AN ELECTRONICALLY VERIFIED REPORT 10/27/2015 3:56 PM: Dusty Melendrez M.D. Dusty Melendrez M.D. TA:ta 03:56 PM 03:56 PM MON [EOD] us Piter Ponce MD [facility] PROCEDURES Final Result * Oxygen saturation, arterial (10/26/2015 10:15 AM [facility]) Specimen Type Oximeter 10/26/2015 2:54 PM [facility] [employer] HISTORICAL RESULTS Puncture Site FINGER 10/26/2015 2:54 PM [facility] [employer] HISTORICAL RESULTS O2 Sat Pulse Oximetry 93.0 >=90.0 % 10/26/2015 2:54 PM [facility] [employer] HISTORICAL RESULTS FiO2 21.0 % 10/26/2015 2:54 PM [facility] [employer] HISTORICAL RESULTS Meringuer ID [id number] 10/26/2015 2:54 PM [facility] [employer] HISTORICAL RESULTS 10/26/2015 10:1 5 AM [facility] 10/26/2015 2:54 PM [facility] us Elie Matos MD LAB BLOOD ORDERABLES Final Result [facility] HISTORICAL RESULTS * Oxygen saturation, arterial (10/26/2015 9:25 AM [facility]) Specimen Type Oximeter Puncture Site FINGER O2 Sat Pulse Oximetry 95.0 >=90.0 % O2 Delivery Device CANNULA Liter Flow 1.0 FiO2 24.0 % Meringuer ID CLW 10/26/2015 9:25 AM [facility] 10/26/2015 2:53 PM [facility] Elie Matos MD LAB BLOOD ORDERABLES Final Result [facility] HISTORICAL RESULTS * (ABNORMAL) Hemogram with manual differential (10/26/2015 7:34 AM [facility]) WBC 3.7(L) 4.6 - 10.2 x10 3/ul RBC 3.53(L) 3.76 - 4.80 x10 6/ul Hemoglobin 10.4(L) 11.0 - 15.0 g/dl Hct 32.9(L) 33.0 - 43.0 % MCV 93.2 80.0 - 97.0 fl MCH 29.5 27.0 - 31.2 pg MCHC 31.6(L) 31.8 - 35.4 g/dl 10/26/2015 8:51 AM [employer] [facility] [employer] HISTORICAL RESULTS RDW 21.2(H) 11.6 - 14.8 % 10/26/2015 8:51 AM [employer] [facility] [employer] HISTORICAL RESULTS Plt Count 284 124 - 400 x10 3/ul 10/26/2015 8:51 AM [employer] [facility] [employer] HISTORICAL RESULTS MPV 9.9 7.4 - 10.4 fl 10/26/2015 8:51 AM [employer] [facility] [employer] HISTORICAL RESULTS MANUAL DIFF MANUAL DIFF --------- -- 10/26/2015 9:52 AM [employer] [facility] [employer] HISTORICAL RESULTS Neutrophils % (Manual) 42 37 - 80 % 10/26/2015 9:52 AM [employer] [facility] [employer] HISTORICAL RESULTS Band Neutrophils % 13(H) 0 - 9 % 10/26/2015 9:52 AM [employer] [facility] [employer] HISTORICAL RESULTS Lymphocytes % (Manual) 15 10 - 51 % 10/26/2015 9:52 AM [employer] [facility] [employer] HISTORICAL RESULTS Monocytes % (Manual) 18(H) 0 - 12 % 10/26/2015 9:52 AM [employer] HISTORICAL RESULTS Eosinophils % (Manual) 8(H) 0 - 7 % 10/26/2015 9:52 AM [employer] HISTORICAL RESULTS Basophils % (Manual) 3(H) 0 - 1 % 10/26/2015 9:52 AM [employer] HISTORICAL RESULTS Myelocytes % 1(H) 0 - 0 % 10/26/2015 9:52 AM [employer] [facility] [employer] HISTORICAL RESULTS ABSOLUTE COUNTS ABSOLUTE COUNTS --------- -- 10/26/2015 9:52 AM [employer] HISTORICAL RESULTS Abs Neuts cells/mm3 2035 /ul 10/26/2015 9:52 AM [employer] HISTORICAL RESULTS Absolute Neutrophils 1.6(L) 1.7 - 8.7 x10 3/ul 10/26/2015 9:52 AM [employer] HISTORICAL RESULTS Absolute Band Neuts 0.5(H) 0.0 - 0.3 x10 3/ul 10/26/2015 9:52 AM [employer] [facility] [employer] HISTORICAL RESULTS Absolute Lymphocytes 0.6 0.2 - 4.6 x10 3/ul 10/26/2015 9:52 AM [employer] [facility] [employer] HISTORICAL RESULTS Absolute Monocytes 0.7 0.1 - 1.5 x10 3/ul Absolute Eosinophils 0.3 0.0 - 0.7 x10 3/ul Absolute Basophils 0.1 0.0 - 0.2 x10 3/ul Absolute Myelocytes 0.0 0 - 0 x10 3/ul Nucl RBC Rel Cnt (Man) 1 /100 WBC Platelet Evaluation AGREE AGREE Comment:Slide review of plat elets correlates with instrument count. Anisocytosis 1+ Microcytosis 2+ 10/26/2015 7:34 AM [facility] 10/26/2015 8:43 AM [facility] us Artis Deras DO LAB BLOOD ORDERABLES Final R esult [facility] HISTORICAL RESULTS * Oxygen saturation, arterial (10/25/2015 2:17 PM [facility]) Specimen Type Oximeter Puncture Site FINGER O2 Sat Pulse Oximetry 97.0 >=90.0 % O2 Delivery Device CANNULA Liter Flow 3.0 FiO2 32.0 % BG Specimen Comment [id number] Meringuer ID BS 10/25/2015 2:17 PM [facility] 10/25/2015 2:26 PM [facility] Elie Matos MD LAB BLOOD ORDERABLES Final Result Performing Organization Address [facility] Co de Phone Number [facility] HISTORICAL RESULTS * Oxygen saturation, arterial (10/25/2015 9:45 AM [facility]) Specimen Type Oximeter 10/25/2015 8:52 AM [facility] [employer] [facility] HISTORICAL RESULTS Puncture Site FINGER O2 Sat Pulse Oximetry 97.0 >=90.0 % O2 Delivery Device CANNULA Liter Flow 3.0 10/25/2015 8:52 AM [facility] HISTORICAL RESULTS FiO2 32.0 % BG Specimen Comment [id number] Meringuer ID BS 10/25/2015 9:45 AM [facility] 10/25/2015 9:45 AM [facility] us Elie Matos MD LAB BLOOD ORDERABLES Final Result Performing Organization Address [facility] Co de Phone Number [facility] HISTORICAL RESULTS * (ABNORMAL) CBC with auto differential (10/25/2015 7:39 AM [facility]) WBC 3.2(L) 4.6 - 10.2 x10 3/ul 10/25/2015 7:54 AM [facility] HISTORICAL RESULTS RBC 3.47(L) 3.76 - 4.80 x10 6/ul Hemoglobin 10.2(L) 11.0 - 15.0 g/dl Hct 31.9(L) 33.0 - 43.0 % 10/25/2015 7:54 AM [employer] [facility] [employer] HISTORICAL RESULTS MCV 91.9 80.0 - 97.0 fl 10/25/2015 7:54 AM [facility] HISTORICAL RESULTS MCH 29.4 27.0 - 31.2 pg 10/25/2015 7:54 AM [facility] [employer] HISTORICAL RESULTS MCHC 32.0 31.8 - 35.4 g/dl 10/25/2015 7:54 AM [facility] [employer] HISTORICAL RESULTS RDW 21.3(H) 11.6 - 14.8 % 10/25/2015 7:54 AM [employer] [facility] [employer] [facility] [employer] HISTORICAL RESULTS Plt Count 274 124 - 400 x10 3/ul 10/25/2015 7:54 AM [facility] [employer] HISTORICAL RESULTS MPV 9.5 7.4 - 10.4 fl 10/25/2015 7:54 AM [employer] [facility] [employer] [facility] [employer] HISTORICAL RESULTS Differential Method AUTOMATED DIFF --------- -- 10/25/2015 7:54 AM [employer] [facility] [employer] HISTORICAL RESULTS Neut % 43.4 37.0 - 85.0 % 10/25/2015 7:54 AM [employer] [facility] [employer] [facility] HISTORICAL RESULTS Immature Gran % 3.1(H) 0.0 - 3.0 % 10/25/2015 7:54 AM [employer] [facility] [employer] [facility] [employer] HISTORICAL RESULTS Lymph % 26.8 5.0 - 45.0 % 10/25/2015 7:54 AM [employer] [facility] [employer] [facility] [employer] HISTORICAL RESULTS Brown % 22.1(H) 3.0 - 15.0 % 10/25/2015 7:54 AM [employer] [facility] [employer] [facility] [employer] HISTORICAL RESULTS Eos % 3.4 0.0 - 7.0 % 10/25/2015 7:54 AM [employer] [facility] [employer] HISTORICAL RESULTS Baso % 1.2 0.0 - 2.0 % 10/25/2015 7:54 AM [employer] [facility] [employer] [facility] [employer] [facility] HISTORICAL RESULTS ABSOLUTE COUNTS ABSOLUTE COUNTS --------- -- 10/25/2015 7:54 AM [employer] [facility] [employer] HISTORICAL RESULTS Absolute Neuts (auto) 1.4(L) 1.7 - 8.7 x10 3/ul 10/25/2015 7:54 AM [employer] [facility] [employer] [facility] [employer] HISTORICAL RESULTS Immature Gran # 0.1 0.0 - 0.3 x10 3/ul Absolute Lymphs (auto) 0.9 0.2 - 4.6 x10 3/ul 10/25/2015 7:54 AM [facility] HISTORICAL RESULTS Absolute Monos (auto) 0.7 0.1 - 1.5 x10 3/ul 10/25/2015 7:54 AM [facility] HISTORICAL RESULTS Absolute Eos (auto) 0.1 0.0 - 0.7 x10 3/ul Absolute Basos (auto) 0.0 0.0 - 0.2 x10 3/ul 10/25/2015 7:39 AM [facility] 10/25/2015 7:53 AM [facility] Celine Etienne MD LAB BLOOD ORDERABLES F inal Result [facility] HISTORICAL RESULTS * (ABNORMAL) Basic metabolic panel (10/25/2015 7:39 AM [facility]) Sodium 139 135 - 145 mmol/L Potassium 4.3 3.3 - 5.1 mmol/L Chloride 101 96 - 108 mmol/L Carbon Dioxide 25 22 - 32 mmol/L 10/25/2015 8:29 AM [facility] HISTORICAL RESULTS Anion Gap 13 7 - 16 Glucose 106(H) 70 - 100 mg/dL 10/25/2015 8:29 AM [facility] HISTORICAL RESULTS BUN 13 6 - 20 mg/dL 10/25/2015 8:29 AM [facility] HISTORICAL RESULTS Creatinine 0.6 0.5 - 1.1 mg/dL 10/25/2015 8:29 AM [facility] HISTORICAL RESULTS Comment: NOTE: Estimated GFR (Cockroft-Gault) will NOT be calculated unless patient Height and Weight were entered. Also, Kidney Disease Stage (GFR) and Estimated GFR (Cockroft-Gault) will NOT be calculated if Creatinine result is <0.2. Kidney Disease Stage > 90 mL/MIN 10/25/2015 8:29 AM [facility] HISTORICAL RESULTS Comment: NOTE; ??The GFR is an estimated value using the creatinine, sex, age, and race of the patient. THE ESTIMATED GFR IS VALIDATED FOR AGES 18-70 YEARS STAGE ?mL/Min ?DESCRIPTION ??1 ?90 mL/min or more ?Normal or elevated GFR ??2 ? 60-89 mL/min ?Mildly decreased GFR ??3 ? 30-59 mL/min ?Moderately decreased GFR ??4 ? 15-29 mL/min ?Severely decreased GFR ??5 ? <15 mL/min ? Kidney failure or on dialysis @ Est GFR (Cockcroft-G) 127 ml/MIN 10/25/2015 8:29 AM [facility] HISTORICAL RESULTS Calcium 9.2 8.6 - 10.0 mg/dL 10/25/2015 8:29 AM [facility] [employer] HISTORICAL RESULTS 10/25/2015 7:39 AM [facility] 10/25/2015 7:53 AM [facility] us Celine Etienne MD LAB BLOOD ORDERABLES F inal Result [facility] HISTORICAL RESULTS * Oxygen saturation, arterial (10/24/2015 1:40 PM [facility]) Specimen Type Oximeter 10/24/2015 2:41 PM [facility] HISTORICAL RESULTS Puncture Site FINGER 10/24/2015 2:41 PM [facility] HISTORICAL RESULTS O2 Sat Pulse Oximetry 99.0 >=90.0 % 10/24/2015 2:41 PM [facility] HISTORICAL RESULTS O2 Delivery Device CANNULA 10/24/2015 2:41 PM [facility] HISTORICAL RESULTS Liter Flow 3.0 10/24/2015 2:41 PM [facility] HISTORICAL RESULTS FiO2 32.0 % 10/24/2015 2:40 PM [facility] HISTORICAL RESULTS BG Specimen Comment [id number] 10/24/2015 2:41 PM [facility] HISTORICAL RESULTS Meringuer ID SRS 10/24/2015 2:41 PM [facility] HISTORICAL RESULTS BLOOD GAS COMMENTS WEARS 3L AT HOME 10/24/2015 2:41 PM [facility] HISTORICAL RESULTS 10/24/2015 1:40 PM [facility] GEOPHYSICAL LABORATORY 10/24/2015 2:40 PM ENGINEER GEOPHYSICAL LABORATORY us Elie Matos MD LAB BLOOD ORDERABLES Final Result [facility] HISTORICAL RESULTS * Oxygen saturation, arterial (10/24/2015 10:00 AM ENGINEER GEOPHYSICAL LABORATORY) Specimen Type Oximeter 10/24/2015 10:29 AM [facility] H[facility]ORICAL RESULTS Puncture Site FINGER O2 Sat Pulse Oximetry 96.0 >=90.0 % O2 Delivery Device CANNULA 10/24/2015 10:29 AM [facility] HISTORICAL RESULTS Liter Flow 3.0 10/24/2015 10:29 AM ENGINEER GEOPHYSICAL LABORATORY [facility] [employer] HISTORICAL RESULTS FiO2 32.0 % BG Specimen Comment [id number] 10/24/2015 10:29 AM ENGINEER GEOPHYSICAL LABORATORY [facility] [employer] HISTORICAL RESULTS Meringuer ID SRS BLOOD GAS COMMENTS WEARS 3L @ HOME 10/24/2015 10:0 0 AM ENGINEER GEOPHYSICAL LABORATORY 10/24/2015 10:28 AM ENGINEER GEOPHYSICAL LABORATORY us Elie Matos MD LAB BLOOD ORDERABLES Final Result [facility] HISTORICAL RESULTS * (ABNORMAL) Blood gas with lactate (10/23/2015 11:14 PM [facility]) Specimen Type ARTERIAL Puncture Site LR Patient Temperature 37 C 10/23 11:31 PM [facility] HISTORICAL RESULTS pH 7.401 7.350 - 7.450 pCO2 37.3 34.0 - 45.0 mmHg pO2 78.8(L) 84.0 - 92.0 mmHg HCO3 22.7 22.0 - 26.0 mmol/L Total CO2 23.8(L) 26.0 - 28.0 mmol/L Base Excess -1.3 -2.0 - 2.0 mmol/L Hemoglobin 10.8(L) 12.0 - 16.0 g/dL O2 Saturation 89.2(L) >=95.0 % ABG Carboxyhemoglobin 5.7(H) <=3.0 % 11:31 PM [facility] HISTORICAL RESULTS ABG Methemoglobin 1.1 0.4 - 1.5 % ABG O2 Content 13.6(L) 17.6 - 24.3 Vol % Lactate (BLOOD GAS) 1.3(H) 0.4 - 0.8 mEq/L A-a O2 Difference 82.2(H) <=10.0 016 11:31 PM [facility] HISTORICAL RESULTS a/A Ratio 0.5(L) >=0.8 O2 Delivery Device CANNULA 2015 11:31 PM [facility] HISTORICAL RESULTS Liter Flow 2.5 FiO2 30.0 % Meringuer ID ARM MAKER 10/23/2015 11:1 4 PM ENGINEER GEOPHYSICAL LABORATORY 10/23/2015 11:18 PM ENGINEER GEOPHYSICAL LABORATORY Narrative [facility] HISTORICAL RESULTS - 10/23/2015 11:31 PM ENGINEER GEOPHYSICAL LABORATORY Conditions Oxygen ?? Source Arterial ?? Comment ? 2L Ashely Dumont MD LAB BLOOD ORDERABLES Karyn l Result Performing Organization Address [facility]/ZIP Co de Phone Number [facility] HISTORICAL RESULTS * Troponin I (10/23/2015 11:03 PM ENGINEER GEOPHYSICAL LABORATORY) Pathologist [facility] Troponin I < 0.300 0.000 - 0.300 ng/mL Comment: Reference using KIRA Chemiluminescence ? Negative: Repeat in 4-6 hours as indicated. 10/23/2015 11:0 3 PM ENGINEER GEOPHYSICAL LABORATORY 10/23/2015 11:07 PM ENGINEER GEOPHYSICAL LABORATORY Sarah Lizarraga LAB BLOOD ORDERABLES Karyn l Result [facility] HISTORICAL RESULTS * (ABNORMAL) Hemogram with manual differential (10/23/2015 7:12 PM ENGINEER GEOPHYSICAL LABORATORY) WBC 3.0(L) 4.6 - 10.2 x10 3/ul RBC 3.61(L) 3.76 - 4.80 x10 6/ul Hemoglobin 10.7(L) 11.0 - 15.0 g/dl Hct 33.4 33.0 - 43.0 % MCV 92.5 80.0 - 97.0 fl MCH 29.6 27.0 - 31.2 pg MCHC 32.0 31.8 - 35.4 g/dl RDW 22.2(H) 11.6 - 14.8 % Plt Count 292 124 - 400 x10 3/ul MPV 9.0 7.4 - 10.4 fl MANUAL DIFF MANUAL DIFF --------- -- Neutrophils % (Manual) 56 37 - 80 % Band Neutrophils % 3 0 - 9 % Lymphocytes % (Manual) 18 10 - 51 % Atypical Lymphs % 5 0 - 6 % 016 8:21 PM ENGINEER GEOPHYSICAL LABORATORY [facility] HISTORICAL RESULTS Monocytes % (Manual) 14(H) 0 - 12 % 10/23/2015 8:21 PM [facility] HISTORICAL RESULTS Eosinophils % (Manual) 4 0 - 7 % ABSOLUTE COUNTS ABSOLUTE COUNTS --------- -- Abs Neuts cells/mm3 1770 /ul Absolute Neutrophils 1.7 1.7 - 8.7 x10 3/ul Absolute Band Neuts 0.1 0.0 - 0.3 x10 3/ul Absolute Lymphocytes 0.5 0.2 - 4.6 x10 3/ul ATYPICAL LYMPH ABS# 0.2 0 - 0.3 x10 3/ul Absolute Monocytes 0.4 0.1 - 1.5 x10 3/ul Absolute Eosinophils 0.1 0.0 - 0.7 x10 3/ul Platelet Evaluation AGREE AGREE Comment:Slide review of plat elets correlates with instrument count. Polychromasia 1+ Hypochromasia 1+ Anisocytosis 2+ Microcytosis 1+ 10/23/2015 7:12 PM ENGINEER GEOPHYSICAL LABORATORY 10/23/2015 7:24 PM ENGINEER GEOPHYSICAL LABORATORY Narrative [facility] HISTORICAL RESULTS - 10/23/2015 8:21 PM ENGINEER GEOPHYSICAL LABORATORY Sarah Workman Lizarraga LAB BLOOD ORDERABLES Karyn l Result [facility] HISTORICAL RESULTS * (ABNORMAL) Cholesterol, LDL, direct (10/23/2015 7:12 PM ENGINEER GEOPHYSICAL LABORATORY) LDL Cholesterol Me[place] 148(H) 0 - 100 mg/dL Comment:High Risk > 159 mg/d L 10/23/2015 7:12 PM ENGINEER GEOPHYSICAL LABORATORY 10/23/2015 7:24 PM ENGINEER GEOPHYSICAL LABORATORY Sarah Lizarraga LAB BLOOD ORDERABLES Karyn l Result Performing Organization Address [facility]/State/ZIP Co de Phone Number [facility] HISTORICAL RESULTS * (ABNORMAL) TNI with LIPID PANEL (10/23/2015 7:12 PM ENGINEER GEOPHYSICAL LABORATORY) Pathologist [facility] Troponin I < 0.300 0.000 - 0.300 ng/mL Comment: Reference using KIRA Chemiluminescence ? Negative: Repeat in 4-6 hours as indicated. Triglycerides 591(H) 0 - 199 mg/dL Comment: LDL (measured) to follow due to Triglycerides >250 mg/dL 12 hr pc highly recommended for Triglyceride Cholesterol 237(H) 0 - 199 mg/dL Comment: Borderline: ??200-239 High Risk: ?? >239 HDL Cholesterol 31(L) 40 - 60 mg/dL Comment: Major Risk ?< 40 mg/dL Moderate Risk ?40-60 mg/dL Negative Risk ?? > 60 mg/dL Cholesterol/HDL Ratio 7.6 Comment: Cholesterol / HDL Ratio 3.5:1 or less is desirable. Cholesterol / HDL Ratio greater than 5:1 is considered higher risk for developing heart disease. 10/23/2015 7:12 PM ENGINEER GEOPHYSICAL LABORATORY 10/23/2015 7:24 PM ENGINEER GEOPHYSICAL LABORATORY Sarah Lizarraga LAB BLOOD ORDERABLES Karyn l Result Performing Organization Address [facility]/ZIP Co de Phone Number 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 Normal Range: ?0.8-1.4 Anti-coagulation therapy ? Low intensity therapy ?2.0-3.0 ? High intensity therapy ?? 2.5-3.5 Critical Value ? Greater than or equal to 6.0 Patients should be monitored for serious bleeding. ?? 10/23/2015 7:12 PM ENGINEER GEOPHYSICAL LABORATORY 10/23/2015 7:24 PM ENGINEER GEOPHYSICAL LABORATORY Sarah Gracious Eloise LAB BLOOD ORDERABLES Karyn l Result Performing Organization Address [facility] de Phone Number [facility] HISTORICAL RESULTS * aPTT (10/23/2015 7:12 PM ENGINEER GEOPHYSICAL LABORATORY) [facility] APTT 29 26 - 33 SECONDS Comment:New Reference Range in use at [facility] 10/12/2015 10/23/2015 7:12 PM ENGINEER GEOPHYSICAL LABORATORY 10/23/2015 7:24 PM ENGINEER GEOPHYSICAL LABORATORY [facility] BLOOD ORDERABLES Karyn l Result Performing Organization Address [facility] de Phone Number [facility] HISTORICAL RESULTS * (ABNORMAL) Comprehensive metabolic panel (10/23/2015 7:12 PM ENGINEER GEOPHYSICAL LABORATORY) [facility] Sodium 137 135 - 145 mmol/L Potassium 3.5 3.3 - 5.1 mmol/L Chloride 99 96 - 108 mmol/L Carbon Dioxide 21(L) 22 - 32 mmol/L Anion Gap 17(H) 7 - 16 Glucose 160(H) 70 - 100 mg/dL BUN 8 6 - 20 mg/dL Creatinine 0.6 0.5 - 1.1 mg/dL Comment: NOTE: Estimated GFR (Cockroft-Gault) will NOT be calculated unless patient Height and Weight were entered. Also, Kidney Disease Stage (GFR) and Estimated GFR (Cockroft-Gault) will NOT be calculated if Creatinine result is <0.2. Kidney Disease Stage > 90 mL/MIN Comment: NOTE; ??The GFR is an estimated value using the creatinine, sex, age, and race of the patient. THE ESTIMATED GFR IS VALIDATED FOR AGES 18-70 YEARS STAGE ?mL/Min ?DESCRIPTION ??1 ?90 mL/min or more ?Normal or elevated GFR ??2 ? 60-89 mL/min ?Mildly decreased GFR ??3 ? 30-59 mL/min ?Moderately decreased GFR ??4 ? 15-29 mL/min ?Severely decreased GFR ??5 ? <15 mL/min ? Kidney failure or on dialysis @ Est GFR (Cockcroft-G) 128 ml/MIN Calcium 9.6 8.6 - 10.0 mg/dL Total Protein 6.8 6.4 - 8.3 g/dL Albumin 4.2 3.5 - 5.2 g/dL Globulin 2.6 2.3 - 3.5 gm/dL Albumin/Globulin Ratio 1.6 1.1 - 1.8 Total Bilirubin < 0.2 0.0 - 1.2 mg/dL AST 11 0 - 32 U/L ALT 20 0 - 33 U/L Alkaline Phosphatase 102 35 - 104 U/L 10/23/2015 7:12 PM ENGINEER GEOPHYSICAL LABORATORY 10/23/2015 7:24 PM ENGINEER GEOPHYSICAL LABORATORY Sarah Workman [place] LAB BLOOD ORDERABLES Karyn l Result [facility] HISTORICAL RESULTS * XR Chest Pa Lateral 2 Views (10/23/2015 12:00 AM ENGINEER GEOPHYSICAL LABORATORY) Anatomical Region Laterality Modality Body, Chest N/A Radiographic Sheyla ging 10/23/2015 Impressions 10/23/2015 8:02 PM ENGINEER GEOPHYSICAL LABORATORY There is pulmonary emphysema. ??Scattered fibrosis. ??Mild atelectasis and/or infiltrate in the lung bases. THIS IS AN ELECTRONICALLY VERIFIED REPORT 10/23/2015 7:59 PM: ??Carson Vigil M.D. Carson Vigil M.D. RW:sera 07:59 PM 07:59 PM IVONNE [EOD] Narrative 10/23/2015 8:02 PM ENGINEER GEOPHYSICAL LABORATORY EXAMINATION: ??CHEST X-RAY 2 VIEWS HISTORY: hx. of copd/ pt. having chest pain on rt. side 2-3 days/ sob x 2-3 months , shortness of breath TECHNIQUE: ??Frontal and lateral projections of the chest. COMPARISON: ??None FINDINGS: The heart is normal size. Right chest venous port in place with distal tip in the atriocaval junction. There is pulmonary emphysema. ??There is scattered fibrosis. ?? Mild atelectasis and/or infiltrate in the lung bases. There is no pleural effusion. ??There is no pneumothorax. ?? Procedure Note Provider, MD Fermin - 01/23/2021 EXAMINATION: CHEST X-RAY 2 VIEWS HISTORY: hx. of copd/ pt. having chest pain on rt. side 2-3 days/ sob x 2-3 months , shortness of breath TECHNIQUE: Frontal and lateral projections of the chest. COMPARISON: None FINDINGS: The heart is normal size. Right chest venous port in place with distal tip in the atriocavaljunction. There is pulmonary emphysema. There is scattered fibrosis. Mild atelectasis and/or infiltrate in the lung bases. There is no pleural effusion. There is no pneumothorax. IMPRESSION: There is pulmonary emphysema. Scattered fibrosis. Mild atelectasis and/or infiltrate in the lung bases. THIS IS AN ELECTRONICALLY VERIFIED REPORT 10/23/2015 7:59 PM: Carson Vigil M.D. Carson Vigil M.D. RW:sera 07:59 PM 07:59 PM IVONNE [EOD] Sarah Lizarraga IMG XR PROCEDURES Final R esult documented in this encounter Visit Diagnoses Diagnosis Pneumonia Pneumonia, organism unspecified Hodgkin lymphoma of lymph nodes of head, face, or neck (HCC) Agranulocytosis secondary to cancer chemotherapy (CODE) (HCC) Chronic obstructive pulmonary disease with acute exacerbation (HCC) Dependence on supplemental oxygen Hypoxemia Adverse effect of antineoplastic and immunosuppressive drugs, initial encounter Right upper quadrant pain Abdominal pain, right upper quadrant Hyperlipidemia Other and unspecified hyperlipidemia Cigarette nicotine dependence, uncomplicated Gastro-esophageal reflux disease without esophagitis Diaphragmatic hernia without obstruction or gangrene Diaphragmatic hernia without mention of obstruction or gangrene Weakness Other malaise and fatigue alf current use of antibiotics Other retirement (current) drug therapy Allergy status to narcotic agent documented in this encounter
--- OUTSIDE RECORDS SUMMARY | 2024-09-04 18:27 | XMS_ITS | Encounter Summary ---
Author Organization [facility] Healthcare Address [address] [place] [address] Care Team Providers Care Bath Steward/Stewardess Name Role Phone Biju Whyte MD Primary Care Provider [phone] Encounter Details Date Type Department Care Team (Late st Contact Info) Description 04/07/2019 12:02 PM CDT Hospital Encounter [facility] Artis Flores MD [address] [facility] [address] [phone] Social History Tobacco Use Types Packs/Day Years Used Date Smoking Tobacco: Every Day Cigarettes 1 30 Smokeless Tobacco: Never Comments:03/09/19: Used to smo ke up to 2ppd Comments Unknown Sex and Gender Information Value Date Recorded Sex Assigned at Not on file 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 Gender Identity Not on file Sexual Orientation [...] RINSE MOUTH AFTER USE 1 Inhaler 3 01/11/2019 9 documented as of this encounter Plan of Treatment Not on file documented as of this encounter Procedures Procedure Name Priority Date/Time Associated Diagnosis Comments CBC WITH AUTO DIFFERENTIAL Routine 04/07/2019 12:24 PM CDT APTT Routine 04/07/2019 12:24 PM CDT PROTIME-INR Routine 04/07/2019 12:24 PM CDT MAGNESIUM Routine 04/07/2019 12:24 PM CDT LIPID PANEL Routine 04/07/2019 12:24 PM CDT COMPREHENSIVE METABOLIC PANEL Routine 04/07/2019 12:24 PM CDT documented in this encounter Results * Magnesium (04/07/2019 12:24 PM CDT) [facility] Signature Magnesium 2.2 1.6 - 2.6 mg/dL [facility] Comment: Magnesium sulfate therapy: ??3.0-9.1 mg/dL 04/07/2019 12:2 4 PM CDT 04/07/2019 12:28 PM CDT Narrative [facility] - 04/07/2019 12:54 PM CDT FASTING Resulting Agency Comment CLI us Artis Medina MD LAB BLOOD [place] [address], [facility] [phone] * (ABNORMAL) Lipid panel (04/07/2019 12:24 PM CDT) Triglycerides 231(H) 0 - 149 mg/dL [facility] Comment: National Lipid Association/NCEP Guidelines: ?? Normal ?< 150 mg/dL ?? Borderline high ?? 150-199 mg/dL ?? High ?200-499 mg/dL ?? Very High ? >=500 mg/dL Cholesterol 178 0 - 199 mg/dL [facility] Comment: National Lipid Association/NCEP Guidelines: Desirable ? < 200 mg/dL Borderline high: ??200-239 mg/dL High Risk: ?>=240 mg/dL HDL Cholesterol 47 mg/dL [facility] Comment: Reference Ranges: ? Males: >=40 mg/dL ? Females: >=50 mg/dL LDL Cholesterol, Calc 85 0 - 129 mg/dL [facility] Comment: National Lipid Association/NCEP Guidelines: ??Optimal ? < 100 mg/dL ??Near Optimal ?100-129 mg/dL ??Borderline high 130-159 mg/dL ??High ?>=160 mg/dL Cholesterol/HDL Ratio 3.8 [facility] Comment: Optimal ??< 3.5:1 High ? > 5:1 04/07/2019 12:2 4 PM CDT 04/07/2019 12:28 PM CDT Narrative [facility] - 04/07/2019 12:54 PM CDT FASTING Resulting Agency Comment CLI us Artis Medina MD LAB BLOOD ORDERABLES Final Result [facility] [address] [place] [address], [facility] [phone] * Comprehensive metabolic panel (04/07/2019 12:24 PM CDT) Sodium 140 135 - 145 mmol/L [facility] Potassium 4.6 3.3 - 5.1 mmol/L [facility] Chloride 101 96 - 108 mmol/L [facility] Carbon Dioxide 26 22 - 32 mmol/L [facility] Anion Gap 13 7 - 16 [facility] Glucose 100 70 - 100 mg/dL [facility] BUN 11 8 - 25 mg/dL [facility] Creatinine 0.5 0.5 - 1.1 mg/dL [facility] Comment: NOTE: Estimated GFR (Cockroft-Gault) will NOT be calculated unless patient Height and Weight were entered. Also, Kidney Disease Stage (GFR) and Estimated GFR (Cockroft-Gault) will NOT be calculated if Creatinine result is <0.2. Kidney Disease Stage >90 mL/MIN [facility] Comment: NOTE; ??The GFR is an estimated [...] mL/min ? Kidney failure or on dialysis Calcium 9.9 8.6 - 10.3 mg/dL [facility] Total Protein 7.8 6.4 - 8.3 g/dL [facility] Albumin 4.7 3.5 - 5.0 g/dL [facility] Globulin 3.1 2.3 - 3.5 gm/dL [facility] Albumin/Globulin Ratio 1.5 1.1 - 1.8 [facility] Total Bilirubin 0.2 0.0 - 1.2 mg/dL [facility] AST 16 0 - 32 U/L [facility] ALT 26 0 - 33 U/L [facility] Alkaline Phosphatase 103 35 - 104 U/L [facility] 04/07/2019 12:2 4 PM CDT 04/07/2019 12:28 PM CDT Narrative [facility] - 04/07/2019 12:54 PM CDT FASTING Resulting Agency Comment CLI Artis Medina MD LAB BLOOD ORDERABLES Final Result Performing Organization Address [facility] de Phone Number [facility] [address] [place] [address] * aPTT (04/07/2019 12:24 PM CDT) APTT 28 27 - 36 SECONDS [facility] Comment: New reference ranges in use 6-28-19. 04/07/2019 12:2 4 PM CDT 04/07/2019 12:28 PM CDT Narrative [facility] - 04/07/2019 12:43 PM CDT FASTING Resulting Agency Comment CLI Artis Medina MD LAB BLOOD ORDERABLES Final Result Performing Organization Address [facility] Co de Phone Number [facility] [address] [phone] * Protime-INR (04/07/2019 12:24 PM CDT) [facility] PT 12.4 12.2 - 14.8 SECONDS [facility] Comment: New reference ranges in use 6-28-19. INR 0.90 [facility] Comment: Recommended Therapeutic range for Oral Anticoagulant Therapy No anti-coagulation therapy ? Normal Range: ?0.8-1.4 Anti-coagulation therapy ? Low intensity therapy ?2.0-3.0 ? High intensity therapy ?? 2.5-3.5 Critical Value ? Greater than or equal to 5.0 Patients should be monitored for serious bleeding. 04/07/2019 12:2 4 PM CDT 04/07/2019 12:28 PM CDT Narrative [facility] - 04/07/2019 12:43 PM CDT FASTING Resulting Agency Comment CLI us Artis Medina MD LAB BLOOD ORDERABLES Final Result [facility] [address] [phone] * (ABNORMAL) CBC with auto differential (04/07/2019 12:24 PM CDT) [facility] WBC 9.0 3.8 - 9.9 X10 3/ul [facility] RBC 5.02 3.90 - 5.20 x10 6/ul [facility] Hemoglobin 13.8 11.9 - 15.5 g/dL [facility] Hct 43.5 35.6 - 45.5 % [facility] MCV 86.7 81.3 - 96.4 fl [facility] MCH 27.5 27.1 - 33.3 pg [facility] MCHC 31.7(L) 32.3 - 35.7 g/dl [facility] RDW 16.1(H) 11.1 - 14.9 % [facility] Plt Count 420(H) 150 - 400 x10 3/ul [facility] MPV 8.7(L) 9.1 - 12.3 fl [facility] Neut % 69.3 % [facility] Immature Gran % 0.8 % [facility] Lymph % 19.2 % [facility] E AST - [facility] [place] % 7.4 % [facility] E AST [facility] Eos % 2.3 % [facility] E AST - [facility] AUTO BASO % 1.0 % [facility] NEUTROPHIL ABS # 6.2 1.7 - 6.5 x10 3/ul [facility] Immature Gran # 0.1 0.0 - 0.1 x10 3/ul [facility] Absolute Lymphs (auto) 1.7 0.8 - 3.3 x10 3/ul [facility] Absolute Monos (auto) 0.7 0.2 - 0.8 x10 3/ul [facility] Absolute Eos (auto) 0.2 0.0 - 0.5 x10 3/ul [facility] BASOPHIL ABS # 0.1 0.0 - 0.1 x10 3/ul [facility] Nucleat RBC Rel Count 0.0 #/100WBC [facility] NRBC abs 0.00 0.00 - 0.01 x10 3/ul [facility] Absolute Neutrophils 6,200 200 - 8,000 /ul [facility] 04/07/2019 12:2 4 PM CDT 04/07/2019 12:28 PM CDT Narrative [facility] - 04/07/2019 12:40 PM CDT FASTING Resulting Agency Comment CLI us Artis Medina MD LAB BLOOD ORDERABLES Final Result [facility] [address] [phone] documented in this encounter Visit Diagnoses Not on filedocumented in this encounter Care Teams Bath Steward/Stewardess Relationship Specialty Start Date End Date Biju Whyte MD PCP - General Emergency Medicine 12/03/18 documented as of this encounter
--- OUTSIDE RECORDS SUMMARY | 2024-09-04 18:27 | XMS_ITS | Encounter Summary ---
Author Organization [facility] Healthcare Address [address] [place] [address] Care Team Providers Care Cup Trimming Machine Operator Name Role Phone Unavailable Primary Care Provider Unavailabl e Encounter Details Date Type Department Care Team (Latest Contact Info) Description 08/13/2018 2:36 PM AUDIO VISUAL TECH Hospital Encounter [facility] Wang South MD [address] [place] [address] Chronic obstructive pulmonary disease (CMS/HCC); Tobacco use; Shortness of breath Social History Tobacco Use Types Packs/Day Years Used Date Smoking Tobacco: Never Assessed Comments Unknown Sex and Gender Information Value Date Recorded Sex Assigned at Not on file Legal Sex Female 1:00 AM AUDIO VISUAL TECH Gender Identity Not on file Sexual Orientation [...] Priority Date/Time Associated Diagnosis Comments CARDIOLOGY REPORT 08/17/2018 12: 00 AM AUDIO VISUAL TECH TRANSTHORACIC ECHO (TTE) COMPLETE W DOPPLER/CF Routine 08/13/2018 3:08 PM AUDIO VISUAL TECH XR HIP RIGHT 2 OR 3 VIEWS Routine 08/13/2018 2:41 PM AUDIO VISUAL TECH XR HIP LEFT 2 OR 3 VIEWS Routine 08/13/2018 2:41 PM AUDIO VISUAL TECH XR SPINE LUMBAR 2 OR 3 VIEWS Routine 08/13/2018 2:41 PM AUDIO VISUAL TECH documented in this encounter Results * CARDIOLOGY REPORT (08/17/2018 12:00 AM AUDIO VISUAL TECH) Anatomical Region Laterality Modality Other Narrative 08/17/2018 12:00 AM AUDIO VISUAL TECH Ordered by an unspecified provider. Historical Provider CV CARDIAC [facility] Final Result * Transthoracic Echo Complete W Doppler/CF (08/13/2018 3:08 PM AUDIO VISUAL TECH) Anatomical Region Laterality Modality Ultrasound 08/13/2018 3:08 PM AUDIO VISUAL TECH Narrative 08/17/2018 9:36 AM AUDIO VISUAL TECH Results viewable in EMR, Cardiovascular [EOD] Procedure Note Provider, Fermin, - 01/23/2021 Results viewable in EMR, Cardiovascular [EOD] [facility] Brannon HASSAN CV ECHO PROCEDURES Final Result * XR Hip Left 2 or 3 Views (08/13/2018 2:41 PM AUDIO VISUAL TECH) Anatomical Region Laterality Modality Lower Extremities, Hip, Pelvis Left R adiographic Imaging 08/13/2018 2:41 PM AUDIO VISUAL TECH Impressions 08/14/2018 11:09 AM AUDIO VISUAL TECH ?? 1.No evidence of an acute osseous abnormality. 2.Minimal left hip osteoarthritis. THIS IS AN ELECTRONICALLY VERIFIED FINAL REPORT 08/14/2018 11:06 AM - Electronically signed by Serge Eid M.D. AB: D: ??08/14/2018 11:06 AM T: ??08/14/2018 11:06 AM Report ID: [id number] Reading Location: ??[id number] [EOD] Narrative 08/14/2018 11:09 AM AUDIO VISUAL TECH EXAM DESCRIPTION: ??Hip LT 2 View Min REASON FOR STUDY: ??Bilateral hip pain for 3 years. ??History of Hodgkin's lymphoma. TECHNIQUE: ??AP and frogleg lateral views of the left hip were obtained. COMPARISON: ??None available. FINDINGS: BONES: There is no evidence of acute fracture or dislocation. Alignment is normal. There is minimal left hip osteoarthritis. ??There are no aggressive appearing osseous lesions. SOFT TISSUES: The visualized soft tissues are normal in appearance. Procedure Note Provider, MD Fermin - 01/23/2021 EXAM DESCRIPTION: Hip LT 2 View Min REASON FOR STUDY: Bilateral hip pain for 3 years. History of Hodgkin's lymphoma. TECHNIQUE: AP and frogleg lateral views of the left hip were obtained. COMPARISON: None available. FINDINGS: BONES: There is no evidence of acute fracture or dislocation. Alignmentis normal. There is minimal left hip osteoarthritis. There are no aggressive appearing osseous lesions. SOFT TISSUES: The visualized soft tissues are normal in appearance. IMPRESSION: 1.No evidence of an acute osseous abnormality. 2.Minimal left hip osteoarthritis. THIS IS AN ELECTRONICALLY VERIFIED FINAL REPORT 08/14/2018 11:06 AM - Electronically signed by Serge Eid M.D. AB: Report ID: [id number] Reading Location: [id number] [EOD] [facility] IMG XR PROCEDURES Final Result * XR Spine Lumbar 2 or 3 Views (08/13/2018 2:41 PM AUDIO VISUAL TECH) Anatomical Region Laterality Modality Spine N/A Radiographic Sheyla ging 08/13/2018 2:41 PM AUDIO VISUAL TECH Impressions 08/14/2018 10:08 AM AUDIO VISUAL TECH ?? 1.No evidence of acute fracture or spondylolisthesis in the lumbar spine. 2.Mild lumbar spondylosis. 3.Mild levocurvature of the lumbar spine centered at L3. THIS IS AN ELECTRONICALLY VERIFIED FINAL REPORT 08/14/2018 10:05 AM - Electronically signed by Serge Eid M.D. AB: D: ??08/14/2018 10:05 AM T: ??08/14/2018 10:05 AM Report ID: [id number] Reading Location: ??[id number] [EOD] Narrative 08/14/2018 10:08 AM AUDIO VISUAL TECH EXAM DESCRIPTION: ??Lumbar Spine 2 or 3 View REASON FOR STUDY: ??Low back pain for 3 years. ??History of Hodgkin's lymphoma. TECHNIQUE: ??Three radiographic views acquired of the lumbar spine. COMPARISON: ??None available. FINDINGS: ALIGNMENT: Mild levocurvature of the lumbar spine centered at L3. ??No spondylolisthesis. VERTEBRAE: The vertebral body heights are preserved. ??There is no evidence of acute fracture. ??There are no aggressive appearing lytic or sclerotic osseous lesions. ??There is mild multilevel endplate osteophytosis. ??There is no evidence of significant facet arthropathy. DISCS: The intervertebral disc spaces are preserved. OTHER: The visualized bony pelvis is intact. ??The sacroiliac joints are normal in appearance. ??There are atherosclerotic vascular calcifications. ??The remainder of the visualized soft tissues are normal in appearance.. Procedure Note Provider, MD Fermin - 01/23/2021 EXAM DESCRIPTION: Lumbar Spine 2 or 3 View REASON FOR STUDY: Low back pain for 3 years. History of Hodgkin'slymphoma. TECHNIQUE: Three radiographic views acquired of the lumbar spine. COMPARISON: None available. FINDINGS: ALIGNMENT: Mild levocurvature of the lumbar spine centered at L3. No spondylolisthesis. VERTEBRAE: The vertebral body heights are preserved. There is no evidenceof acute fracture. There are no aggressive appearing lytic or scleroticosseous lesions. There is mild multilevel endplate osteophytosis. There is no evidence of significant facet arthropathy. DISCS: The intervertebral disc spaces are preserved. OTHER: The visualized bony pelvis is intact. The sacroiliac joints arenormal in appearance. There are atherosclerotic vascular calcifications. The remainder of the visualized soft tissues are normal in appearance.. IMPRESSION: 1.No evidence of acute fracture or spondylolisthesis in the lumbar spine. 2.Mild lumbar spondylosis. 3.Mild levocurvature of the lumbar spine centered at L3. THIS IS AN ELECTRONICALLY VERIFIED FINAL REPORT 08/14/2018 10:05 AM - Electronically signed by Serge Eid M.D. AB: Report ID: [id number] Reading Location: [id number] [EOD] [facility] IMG XR PROCEDURES Final Result * XR Hip Right 2 or 3 Views (08/13/2018 2:41 PM AUDIO VISUAL TECH) Anatomical Region Laterality Modality Lower Extremities, Hip, Pelvis Right R adiographic Imaging 08/13/2018 2:41 PM AUDIO VISUAL TECH Impressions 08/14/2018 11:08 AM AUDIO VISUAL TECH ?? 1.No evidence of an acute osseous abnormality. 2.Mild right hip osteoarthritis. THIS IS AN ELECTRONICALLY VERIFIED FINAL REPORT 08/14/2018 11:05 AM - Electronically signed by Serge Eid M.D. AB: D: ??08/14/2018 11:05 AM T: ??08/14/2018 11:05 AM Report ID: [id number] Reading Location: ??[id number] [EOD] Narrative 08/14/2018 11:08 AM AUDIO VISUAL TECH EXAM DESCRIPTION: Hip RT 2 View Min REASON FOR STUDY: ??Bilateral hip pain for 3 years. ??History of Hodgkin's lymphoma. TECHNIQUE: ??AP and frogleg lateral views of the right hip were obtained. COMPARISON: ??None available. FINDINGS: BONES: There is no evidence of acute fracture or dislocation. Alignment is normal. There is mild right hip osteoarthritis. ??There are no aggressive appearing osseous lesions. SOFT TISSUES: The visualized soft tissues are normal in appearance. Procedure Note Provider, MD Fermin - 01/23/2021 EXAM DESCRIPTION: Hip RT 2 View Min REASON FOR STUDY: Bilateral hip pain for 3 years. History of Hodgkin's lymphoma. TECHNIQUE: AP and frogleg lateral views of the right hip were obtained. COMPARISON: None available. FINDINGS: BONES: There is no evidence of acute fracture or dislocation. Alignmentis normal. There is mild right hip osteoarthritis. There are no aggressive appearing osseous lesions. SOFT TISSUES: The visualized soft tissues are normal in appearance. IMPRESSION: 1.No evidence of an acute osseous abnormality. 2.Mild right hip osteoarthritis. THIS IS AN ELECTRONICALLY VERIFIED FINAL REPORT 08/14/2018 11:05 AM - Electronically signed by Serge Eid M.D. AB: Report ID: [id number] Reading Location: [place] [id number] [EOD] Wang South MD IMG XR PROCEDURES Final Result documented in this encounter Visit Diagnoses Diagnosis Chronic obstructive pulmonary disease (HCC) Tobacco use Shortness of breath documented in this encounter
--- OUTSIDE RECORDS SUMMARY | 2024-09-04 18:27 | XMS_ITS | Encounter Summary ---
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
--- OUTSIDE RECORDS SUMMARY | 2024-09-04 18:27 | XMS_ITS | Encounter Summary ---
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
--- OUTSIDE RECORDS SUMMARY | 2024-09-04 18:27 | XMS_ITS | Encounter Summary ---
Author Organization [facility] Address [address] [place] [address] Care Team Providers Care Mold Filler And Drainer Name Role Phone Biju Whyte MD Primary Care Provider [phone] Reason for Visit * Reason Comments Follow-up Discuss Test Results Alpha 1, CT Chest Encounter Details Date Type Department Care Team ([facility] st Contact Info) Description 03/09/2019 1:15 PM CDT Office Visit [facility] Pulmonology [address] [place] [address] April Worthy MD [address] [place] [address] Pulmonary nodule (Primary Dx); Simple chronic bronchitis (CMS/HCC); Nocturnal hypoxia; Smoking Social History Tobacco Use Types Packs/Day Years Used Date Smoking Tobacco: Every Day Cigarettes 1 30 Smokeless Tobacco: Never Comments:03/09/19: Used to smo ke up to 2ppd Comments Unknown Sex and Gender Information Value Date Recorded Sex Assigned at Not on file 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 Gender Identity Not on file Sexual Orientation Not on file documented as of this encounter Last Filed Vital Signs Vital Sign Reading Time Taken Comments Blood Pressure 100/68 03/09/2019 1:17 PM CDT Pulse 82 03/09/2019 1:17 PM CDT Temperature - - Respiratory Rate 18 03/09/2019 1:17 PM CDT Oxygen Saturation 97% 03/09/2019 1:17 PM CDT Inhaled Oxygen Concentration - - Weight 89.8 kg (198 lb) 03/09/2019 1:17 PM CDT Height 172.7 cm (5' 8 ) 03/09/2019 1:17 PM CDT Body Mass Index 30.11 03/09/2019 1:17 PM CDT documented in this encounter Ordered Prescriptions Prescription Sig Dispense Quantity Refills Last Filled Start Date End Date buPROPion (WELLBUTRIN) 100 mg tablet Take 1 tablet (100 mg total) by mouth 2 (two) times a day 60 tablet 3 03/09/2019 02/24/2020 documented in this encounter Progress Notes * April Worthy MD - 03/09/2019 1:15 PM CDT Progress Note Patient: Nayeli Og ( - 1965) is a 53 y.o. female. Visit Date: 03/09/2019 I am seeing this patient in consultation, requested by Dr. Biju Whyte MD for copd. Chief Complaint Patient presents with ??? Follow-up ??? Discuss Test Results Alpha 1, CT Chest History of Present Illness: Patient is a 53-year-old female with past medical history of COPD, nocturnal hypoxia requiring 3 L of supplemental oxygen at night, Hodgkin's lymphoma in remission for the last 3 years and osteopenia. Patient is a smoker and has smoked 1 pack per day for 35 years. Currently she is on Symbicort and p.r.n. [facility].30 [...] corresponds to either a small focal diaphragmatic defect or a focal area of subpleural fat deposition. This finding is benign, unchanged, and requiresno additional follow-up or workup. There are no suspicious lung nodules. No pneumonic consolidation. The airway is widely patent. Past Medical History: Past Medical History: Diagnosis [...] Medication Sig Dispense Refill ??? albuterol HFA (VENTOLIN HFA) 90 mcg/actuation inhaler Inhale 2 puffs every 6 (six) hours as needed ??? alendronate (FOSAMAX) 70 mg tablet TAKE 1 TABLET BY MOUTH EVERY WEEK 0 ??? atorvastatin (LIPITOR) 80 mg tablet TK 1 T PO QHS 0 ??? fenofibrate (TRIGLIDE) 160 mg tablet ??? fluticasone propionate (FLONASE) 50 mcg/actuation nasal spray fluticasone propionate 50 mcg/actuation nasal spray,suspension ??? ibuprofen (ADVIL,MOTRIN) 400 mg tablet ??? ipratropium (ATROVENT) 0.02 % nebulizer solution ??? levothyroxine (SYNTHROID) 100 mcg tablet daily ??? metFORMIN XR (GLUCOPHAGE XR) 500 mg 24 hr tablet ??? SYMBICORT 160-4.5 mcg/actuation inhaler INHALE 2 PUFFS BY MOUTH TWICE DAILY. RINSE MOUTH AFTER USE 1 Inhaler 3 ??? buPROPion (WELLBUTRIN) 100 mg tablet Take 1 tablet (100 mg total) by mouth 2 (two) times a day 60 tablet 3 ??? omeprazole (PriLOSEC) 20 mg capsule TK ONE C PO QD PRN 0 ??? oxybutynin XL (DITROPAN-XL) 10 mg 24 hr tablet TK 1 T PO QD 0 ??? pantoprazole DR (PROTONIX) 40 mg EC tablet pantoprazole 40 mg tablet,delayed release TK 1 T PO QD No current facility-administered medications for this visit. Allergies: Allergies Allergen Reactions ??? Latex Unknown Family History: Family History Problem Relation Age of Onset ??? Lung cancer Maternal Grandfather ??? Bone cancer Maternal Grandfather Social History: Social History Socioeconomic History ??? Marital status: Spouse name: None ??? Number of children: None ??? Years of education: None ??? Highest education level: None Occupational History ??? None Social Needs ??? Financial resource strain: None ??? Food insecurity: Worry: None Inability: None ??? Transportation needs: Medical: None Non-medical: None Tobacco Use ??? Smoking status: Current Every Day Smoker Packs/day: 1.00 Years: 30.00 Pack years: 30.00 Types: Cigarettes ??? Smokeless tobacco: Never Used ??? Tobacco comment: 03/09/19: Used to smoke up to 2ppd Substance and Sexual Activity ??? Alcohol use: None ??? Drug use: None ??? Sexual activity: None Lifestyle ??? Physical activity: Days per week: None Minutes per session: None ??? Stress: None Relationships ??? Social connections: Talks on phone: None Gets together: None Attends judaism service: None Active member of club or organization: None Attends meetings of clubs or organizations: None Relationship status: None ??? Intimate partner violence: Fear of current or ex partner: None Emotionally abused: None Physically abused: None Forced sexual activity: None Other Topics Concern ??? None Social History Narrative ??? None Review of Systems: Review of Systems Constitutional: Negative for activity change, appetite change, chills, diaphoresis, fatigue, fever and unexpected weight change. HENT: Negative for congestion, nosebleeds, postnasal drip, rhinorrhea, sinus pressure, sinus pain, sneezing and voice change. Respiratory: Negative for apnea, cough, choking, chest tightness, shortness of breath, wheezing andstridor. Cardiovascular: Negative for chest pain, palpitations and leg swelling. Allergic/Immunologic: Negative for environmental allergies, food allergies and immunocompromised state. Physical Exam: Vitals: 03/09/19 1317 BP: 100/68 Pulse: 82 Resp: 18 SpO2: 97% Weight: 89.8 kg (198 lb) Height: 172.7 cm (5' 8 ) Physical Exam Constitutional: She is oriented to person, place, and time. She appears well- developed and well-nourished. HENT: Head: Normocephalic and atraumatic. Nose: Nose normal. Eyes: Pupils are equal, round, and reactive to light. Conjunctivae and EOM are normal. Right eye exhibits no discharge. Left eye exhibits no discharge. No scleral icterus. Neck: Normal range of motion. Neck supple. No tracheal deviation present. No thyromegaly present. Cardiovascular: Normal rate. Exam reveals no gallop and no friction rub. No murmur heard. Pulmonary/Chest: Effort normal and breath sounds normal. No respiratory distress. She has no wheezes. She has no rales. She exhibits no tenderness. Abdominal: Soft. Bowel sounds are normal. She exhibits no distension. There is no tenderness. Musculoskeletal: Normal range of motion. She exhibits no edema, tenderness or deformity. Lymphadenopathy: She has no cervical adenopathy. Neurological: She is alert and oriented to person, place, and time. No cranial nerve deficit. She exhibits normal muscle tone. Coordination normal. Skin: Skin is warm and dry. Psychiatric: She has a normal mood and affect. Her behavior is normal. Data Reviewed Images: Echocardiogram: Labs: CBC w/auto diff: Lab Results Component Value Date WBC 5.3 11/22/2015 RBC 3.10 (L) 11/22/2015 HGB 9.5 (L) 11/22/2015 HCT 29.9 (L) 11/22/2015 MCV 96.5 11/22/2015 MCH 30.6 11/22/2015 MCHC 31.8 11/22/2015 MPV 10.1 11/22/2015 NRBC 16 11/21/2015 CMP results: Lab Results Component Value Date SODIUM 136 11/22/2015 POTASSIUM 4.6 11/22/2015 CO2 24 11/22/2015 GLUCOSE 192 (H) 11/22/2015 CREATININE 0.7 11/22/2015 CALCIUM 8.8 11/22/2015 CHLORIDE 95 (L) 11/22/2015 ALBUMIN 3.9 11/22/2015 AST 36 (H) 11/22/2015 ALKPHOS 63 11/22/2015 BILITOT 0.2 11/22/2015 PROT 6.0 (L) 11/22/2015 ANIONGAP 17 (H) 11/22/2015 Assessment and Plan: Diagnoses and all orders for this visit: Pulmonary nodule (Primary) Assessment & Plan: CT scan of the chest reviewed. No concerning nodules or masses noted. She does have severe centrilobular emphysema. Simple chronic bronchitis (CMS/HCC) Nocturnal hypoxia Assessment & Plan: Continue with 3 L of oxygen at night. Smoking Assessment & Plan: Patient was advised to quit smoking. I will start her on Wellbutrin to assist with smoking cessation. Other orders - buPROPion (WELLBUTRIN) 100 mg tablet; Take 1 tablet (100 mg total) by mouth 2 (two) times a day Rendering Provider & Department: April Worthy MD documented in this encounter Miscellaneous Notes * Assessment & Plan Note - April Worthy MD - 03/11/2019 3:02 PM CDT Associated Problem(s): Smoking Patient was advised to quit smoking. I will start her on Wellbutrin to assist with smoking cessation. * Assessment & Plan Note - April Worthy MD - 03/11/2019 3:01 PM CDT Associated Problem(s): Pulmonary nodule (Resolved 09/17/2019) CT scan of the chest reviewed. No concerning nodules or masses noted. She does have severe centrilobular emphysema. * Assessment & Plan Note - April Worthy MD - 03/11/2019 3:01 PM CDT Associated Problem(s): Nocturnal hypoxia Continue with 3 L of oxygen at night. * Assessment & Plan Note - April Worthy MD - 03/11/2019 3:00 PM CDT Associated Problem(s): COPD (chronic obstructive pulmonary disease) (HCC) Continue with Symbicort and p.r.n. Albuterol inhaler. documented in this encounter Plan of Treatment Not on file documented as of this encounter Visit Diagnoses Diagnosis Pulmonary nodule- Primary Other diseases of lung, not elsewhere classified Simple chronic bronchitis (HCC) Simple chronic bronchitis Nocturnal hypoxia Smoking Tobacco use disorder documented in this encounter Historical Medications * This list may reflect changes made after this encounter. pantoprazole DR (PROTONIX) 40 mg EC tablet pantoprazole 40 mg tablet,delayed release TK 1 T PO QD 12/05/2015 ibuprofen (ADVIL,MOTRIN) 400 mg tablet 11/22/2015 fenofibrate (TRIGLIDE) 160 mg tablet 01/11/2019 ipratropium (ATROVENT) 0.02 % nebulizer solution 11/22/2015 0 fluticasone propionate (FLONASE) 50 mcg/actuation nasal spray fluticasone propionate 50 mcg/actuation nasal spray,suspension 1 oxybutynin XL (DITROPAN-XL) 10 mg 24 hr tablet TK 1 T PO QD 0 12/04/2018 02 0 omeprazole (PriLOSEC) 20 mg capsule TK ONE C PO QD PRN 0 12/04/2018 0 metFORMIN XR (GLUCOPHAGE XR) 500 mg 24 hr tablet 01/11/2019 1 levothyroxine (SYNTHROID) 100 mcg tablet daily 1 atorvastatin (LIPITOR) 80 mg tablet TK 1 T PO QHS 0 12/04/2018 0 alendronate (FOSAMAX) 70 mg tablet TAKE 1 TABLET BY MOUTH EVERY WEEK 0 12/04/2018 1 albuterol HFA (VENTOLIN HFA) 90 mcg/actuation inhaler Inhale 2 puffs every 6 (six) hours as needed 12/03/2018 9 added in this encounter Care Teams Mold Filler And Drainer Relationship Specialty Start Date End Date Biju Whyte MD PCP - General Emergency Medicine 12/03/18 documented as of this encounter
--- OUTSIDE RECORDS SUMMARY | 2024-09-04 18:27 | XMS_ITS | Encounter Summary ---
Author Organization [facility] Address [address] [place] [address] Care Team Providers Care Hand Thermal Cutter Name Role Phone Unavailable Primary Care Provider Unavailabl e Encounter Details Date Type Department Care Team (Latest Contact Info) Description 06/16/2015 12:09 PM CDT Hospital Encounter [facility] OP Piter Ponce MD [address] [place] [address] Encounter for observation for other suspected diseases and conditions ruled out; Other halfway (current) drug therapy; Hodgkin lymphoma (CMS/HCC) Social History Tobacco Use Types Packs/Day Years Used Date Smoking Tobacco: Never Assessed Comments Unknown Sex and Gender Information Value Date Recorded Sex Assigned at Not on file 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 THIS IS AN ELECTRONICALLY VERIFIED REPORT 06/16/2015 3:41 PM: ??Rodney Michelle M.D. Rodney Michelle M.D. RK:radha 03:41 PM 03:41 PM YUVAL [EOD] Narrative 06/16/2015 3:44 PM CDT Nuclear Medicine left ventriculography study HISTORY: ??Newly diagnosed Hodgkin lymphoma. ??Evaluation of LV function prior to initiation of chemotherapy. TECHNIQUE: ??26 mCi of technetium 99m pertechnetate administered via indwelling IV catheter for in vivo labeling of RBCs. FINDINGS: ??The left ventricular chamber size is normal in appearance. ??There is no regional wall motion abnormality evident. ??LVEF is normal, calculated at 67%. Procedure Note Provider, MD Fermin - 01/23/2021 Nuclear Medicine left ventriculography study HISTORY: Newly diagnosed Hodgkin lymphoma. Evaluation of LV functionprior to initiation of chemotherapy. TECHNIQUE: 26 mCi of technetium 99m pertechnetate administered viaindwelling IV catheter for in vivo labeling of RBCs. FINDINGS: The left ventricular chamber size is normal in appearance.There is no regional wall motion abnormality evident. LVEF is normal,calculated at 67%. IMPRESSION: LVEF: 67%. THIS IS AN ELECTRONICALLY VERIFIED REPORT 06/16/2015 3:41 PM: Rodney Michelle M.D. Rodney Michelle M.D. RK:radha 03:41 PM 03:41 PM YUVAL [EOD] Piter Ponce MD IM NM PROCEDURES Final Result documented in this encounter Visit Diagnoses Diagnosis Encounter for observation for other suspected diseases and conditions ruled out Other halfway (current) drug therapy Hodgkin lymphoma (HCC) documented in this encounter
--- OUTSIDE RECORDS SUMMARY | 2024-09-04 18:27 | XMS_ITS | Encounter Summary ---
Author Organization [facility] Healthcare Address [address] [place] [id number] Care Team Providers Care Training And Development Head Name Role Phone Unavailable Primary Care Provider Unavailabl e Encounter Details Date Type Department Care Team (Latest Contact Info) Description 11/16/2015 8:45 PM AUGER SUPERVISOR - 11/22/2015 3:43 PM CDT Hospital Encounter [facility] Elie Michelle MD [address] [place] [phone] Chronic obstructive pulmonary disease with acute exacerbation (CMS/HCC); Non-Hodgkin lymphoma (CMS/HCC); Agranulocytosis secondary to cancer chemotherapy (CODE) (HCC); Hemiplegia and hemiparesis following unspecified cerebrovascular disease affecting left non-dominant side (HCC); Hyperlipidemia; Uncomplicated asthma; Gastro-esophageal reflux disease without esophagitis; Diaphragmatic hernia without obstruction or gangrene; Osteoarthritis; Cigarette nicotine dependence, uncomplicated; Adverse effect of antineoplastic and immunosuppressive drugs, initial encounter; Chronic obstructive pulmonary disease with acute lower respiratory infection (CMS/HCC) Social History Tobacco Use Types Packs/Day Years Used Date Smoking Tobacco: Never Assessed Comments Unknown Sex and Gender Information Value Date Recorded Sex Assigned at Not on file Legal Sex Female 1:00 AM AUGER SUPERVISOR Gender Identity Not on file Sexual Orientation Not on file documented as of this encounter Last Filed Vital Signs Vital Sign Reading Time Taken Comments Blood Pressure 145/91 11/18/2015 5:43 PM AUGER SUPERVISOR Pulse 78 11/18/2015 5:43 PM AUGER SUPERVISOR Temperature 36.3 ??C (97.4 ??F) 11/18/2015 5:43 PM CS T Respiratory Rate - - Oxygen Saturation 95% 11/18/2015 5:43 PM AUGER SUPERVISOR Inhaled Oxygen Concentration - - Weight 87.3 kg (192 lb 8 oz) 11/18/2015 5:43 PM AUGER SUPERVISOR Height 172.7 cm (5' 8 ) 11/18/2015 5:43 PM AUGER SUPERVISOR Body Mass Index 29.27 11/18/2015 5:43 PM AUGER SUPERVISOR documented in this encounter Medications at Time of Discharge Medication Sig Dispense Quantity Refills Last Filled Start D ate End Date ibuprofen (ADVIL,MOTRIN) 400 mg tablet 11/22/2015 ipratropium (ATROVENT) 0.02 % nebulizer solution 11/22/20152019 documented as of this encounter Plan of Treatment Not on file documented as of this encounter Procedures Procedure Name Priority Date/Time Associated Diagnosis Comments COMPREHENSIVE METABOLIC PANEL Routine 11/22/2015 8:38 AM CDT HEMOGRAM WITH MANUAL DIFFERENTIAL Routine 11/22/2015 6:29 AM CDT HEMOGRAM WITH MANUAL DIFFERENTIAL Routine 11/21/2015 9:41 AM CDT BASIC METABOLIC PANEL Routine 11/21/2015 9:41 AM CDT XR CHEST PA LATERAL 2 VIEWS Routine 11/21/2015 12:00 AM CDT HEMOGRAM WITH MANUAL DIFFERENTIAL Routine 11/20/2015 10:16 AM CDT MAGNESIUM Routine 11/20/2015 10:16 AM CDT COMPREHENSIVE METABOLIC PANEL Routine 11/20/2015 10:16 AM CDT SERUM CHLAMYDIA AB, IGG, IGM Routine 11/19/2015 1:43 PM CDT HEMOGRAM WITH MANUAL DIFFERENTIAL Routine 11/19/2015 7:20 AM CDT PHOSPHORUS Routine 11/19/2015 7:20 AM CDT MAGNESIUM Routine 11/19/2015 7:20 AM CDT COMPREHENSIVE METABOLIC PANEL Routine 11/19/2015 7:20 AM CDT UA WITH CULTURE REFLEX Routine 6 9:50 PM AUGER SUPERVISOR STREP PNEUMONIAE AG, URINE Routine 11/18/2015 9:50 PM AUGER SUPERVISOR LEGIONELLA PNEUMOPHILIA ANTIGEN, URINE Routine 11/18/2015 9:50 PM AUGER SUPERVISOR HISTOPLASMA ANTIGEN, URINE Routine 11/18/2015 9:50 PM AUGER SUPERVISOR INFECTION PREVENTION MRSA ONLY (STAPHYLOCOCCUS AUREUS) PCR Routine 11/18/2015 9:33 PM AUGER SUPERVISOR INFLUENZA A/B ANTIGENS, RAPID Routine 11/18/2015 9:33 PM AUGER SUPERVISOR MICROBIOLOGY SPECIMEN REPORT (CONVERTED) Routine 11/18/2015 6:51 PM AUGER SUPERVISOR MICROBIOLOGY SPECIMEN REPORT (CONVERTED) Routine 11/18/2015 5:56 PM AUGER SUPERVISOR PROCALCITONIN POST-ANTIBIOTIC Routine 11/18/2015 5:56 PM AUGER SUPERVISOR MYCOPLASMA PNEUMONIAE ANTIBODY, IGM Routine 11/18/2015 5:56 PM AUGER SUPERVISOR CRP (ACUTE PHASE) Routine 11/18/2015 5:5 6 PM AUGER SUPERVISOR B-TYPE NATRIURETIC PEPTIDE Routine 11/18/2015 5:56 PM AUGER SUPERVISOR IGE Routine 11/18/2015 5:56 PM AUGER SUPERVISOR CBC WITH AUTO DIFFERENTIAL Routine 11/18/2015 6:15 AM AUGER SUPERVISOR BASIC METABOLIC PANEL Routine 11/18/2015 6:15 AM AUGER SUPERVISOR CBC WITH AUTO DIFFERENTIAL Routine 11/17/2015 7:10 AM AUGER SUPERVISOR BASIC METABOLIC PANEL Routine 11/17/2015 6:34 AM AUGER SUPERVISOR HEMOGRAM WITH MANUAL DIFFERENTIAL Routine 11/16/2015 6:40 PM AUGER SUPERVISOR SLIDE REVIEW - PATHOLOGIST Routine 11/16/2015 6:40 PM AUGER SUPERVISOR TROPONIN I Routine 11/16/2015 6:40 PM AUGER SUPERVISOR APTT Routine 11/16/2015 6:40 PM AUGER SUPERVISOR PROTIME-INR Routine 11/16/2015 6:40 PM AUGER SUPERVISOR B-TYPE NATRIURETIC PEPTIDE Routine 11/16/2015 6:40 PM AUGER SUPERVISOR COMPREHENSIVE METABOLIC PANEL Routine 11/16/2015 6:40 PM AUGER SUPERVISOR BLOOD GAS WITH LACTATE Routine 6 5:[address] CHEST W CONTRAST Routine 11/16/2015 1 2:00 AM AUGER SUPERVISOR XR CHEST PA LATERAL 2 VIEWS Routine 11/16/2015 12:00 AM AUGER SUPERVISOR documented in this encounter Results * (ABNORMAL) Comprehensive metabolic panel (11/22/2015 8:38 AM CDT) Sodium 136 135 - 145 mmol/L 11/22/2015 9:28 AM [facility] HISTORICAL RESULTS Potassium 4.6 3.3 - 5.1 mmol/L 11/22/2015 9:39 AM [facility] HISTORICAL RESULTS Comment: HEMOLYZED: Hemolysis interferes with the above test. ?? Redraw specimen. Moderately hemolyzed. ?? Review with caution. Chloride 95(L) 96 - 108 mmol/L 11/22/2015 9:28 AM [facility] HISTORICAL RESULTS Carbon Dioxide 24 22 - 32 mmol/L 11/22/2015 9:28 AM [facility] HISTORICAL RESULTS Anion Gap 17(H) 7 - 16 11/22/2015 9:28 AM [facility] HISTORICAL RESULTS Glucose 192(H) 70 - 100 mg/dL 11/22/2015 9:39 AM T [facility] HISTORICAL RESULTS Comment:Results reviewed BUN 20 6 - 20 mg/dL 11/22/2015 9:28 AM [facility] Creatinine 0.7 0.5 - 1.1 mg/dL 11/22/2015 9:28 AM [facility] Comment: NOTE: Estimated GFR (Cockroft-Gault) will NOT be calculated unless patient Height and Weight were entered. Also, Kidney Disease Stage (GFR) and Estimated GFR (Cockroft-Gault) will NOT be calculated if Creatinine result is <0.2. Kidney Disease Stage > 90 mL/MIN 11/22/2015 9:28 AM [facility] Comment: NOTE; ??The GFR is [...] or on dialysis @ Est GFR (Cockcroft-G) 110 ml/MIN 11/22/2015 9:28 AM [facility] Calcium 8.8 8.6 - 10.0 mg/dL 11/22/2015 9:28 AM [facility] 5to1 HISTORICAL RESULTS Total Protein 6.0(L) 6.4 - 8.3 g/dL 11/22/2015 9:28 AM [facility] Albumin 3.9 3.5 - 5.2 g/dL 11/22/2015 9:28 AM [facility] Globulin 2.1(L) 2.3 - 3.5 gm/dL 11/22/2015 9:[address] [facility] HISTORICAL RESULTS Albumin/Globulin Ratio 1.9(H) 1.1 - 1.8 11/22/2015 9:[address] [facility] HISTORICAL RESULTS Total Bilirubin 0.2 0.0 - 1.2 mg/dL 11/22/2015 9:[address] [facility] HISTORICAL RESULTS AST 36(H) 0 - 32 U/L 11/22/2015 9:[address] [facility] HISTORICAL RESULTS Comment: HEMOLYZED: Hemolysis interferes with the above test. ?? Redraw specimen. Moderately hemolyzed. ?? Review with caution. ?? Results reviewed ?? ALT 36(H) 0 - 33 U/L 11/22/2015 9:[address] [facility] HISTORICAL RESULTS Comment: HEMOLYZED: Hemolysis interferes with the above test. ?? Redraw specimen. Moderately hemolyzed. ?? Review with caution. Alkaline Phosphatase 63 35 - 104 U/L 11/22/2015 8:38 AM CDT 11/22/2015 8:57 AM CDT Narrative [facility] HISTORICAL RESULTS - 11/22/2015 9:28 AM CDT redraw;previous specimen hemolyzed us Elie Matos MD LAB BLOOD ORDERABLES Final Result [facility] HISTORICAL RESULTS * (ABNORMAL) Hemogram with manual differential (11/22/2015 6:29 AM CDT) WBC 5.3 4.6 - 10.2 x10 3/ul 11/22/2015 6:[address] [facility] HISTORICAL RESULTS RBC 3.10(L) 3.76 - 4.80 x10 6/ul 11/22/2015 6:[address] [facility] HISTORICAL RESULTS Hemoglobin 9.5(L) 11.0 - 15.0 g/dl 11/22/2015 6:[address] [facility] HISTORICAL RESULTS Hct 29.9(L) 33.0 - 43.0 % 11/22/2015 6:47 AM [facility] MCV 96.5 80.0 - 97.0 fl 11/22/2015 6:47 AM [facility] MCH 30.6 27.0 - 31.2 pg 11/22/2015 6:47 AM [facility] MCHC 31.8 31.8 - 35.4 g/dl 11/22/2015 6:47 AM [facility] H[facility] RES[facility] RDW 21.4(H) 11.6 - 14.8 % 11/22/2015 6:47 AM [facility] Plt Count 189 124 - 400 x10 3/ul 11/22/2015 6:47 AM [facility] RES[facility] MPV 10.1 7.4 - 10.4 fl 11/22/2015 6:47 AM [facility] Differential Method AUTOMATED DIFF -------- --- 11/22/2015 6:47 AM [facility] Neut % 75.6 37.0 - 85.0 % 11/22/2015 6:47 AM [facility] Immature Gran % 9.2(H) 0.0 - 3.0 % 11/22/2015 6:47 AM [facility] Lymph % 6.0 5.0 - 45.0 % 11/22/2015 6:47 AM [facility] Waldo % 8.8 3.0 - 15.0 % 11/22/2015 6:47 AM [facility] Eos % 0.0 0.0 - 7.0 % 11/22/2015 6:47 AM [facility] Baso % 0.4 0.0 - 2.0 % 11/22/2015 6:47 AM [facility] ABSOLUTE COUNTS ABSOLUTE COUNTS -------- --- 11/22/2015 6:47 AM [facility] Absolute Neuts (auto) 4.0 1.7 - 8.7 x10 3/ul 11/22/2015 6:47 AM [facility] Immature Gran # 0.5(H) 0.0 - 0.3 x10 3/ul 11/22/2015 6:[address] [facility] HISTORICAL RESULTS Absolute Lymphs (auto) 0.3 0.2 - 4.6 x10 3/ul 11/22/2015 6:[address] [facility] HISTORICAL RESULTS Absolute Monos (auto) 0.5 0.1 - 1.5 x10 3/ul 11/22/2015 6:[address] [facility] HISTORICAL RESULTS Absolute Eos (auto) 0.0 0.0 - 0.7 x10 3/ul 11/22/2015 6:[address] [facility] HISTORICAL RESULTS Absolute Basos (auto) 0.0 0.0 - 0.2 x10 3/ul 11/22/2015 6:[address] [facility] HISTORICAL RESULTS Platelet Evaluation AGREE AGREE 11/22/2015 7:[address] [facility] HISTORICAL RESULTS Comment:Slide review of plat elets correlates with instrument count. Polychromasia 2+ 11/22/2015 7:[address] [facility] HISTORICAL RESULTS Anisocytosis 2+ 11/22/2015 7:[address] [facility] HISTORICAL RESULTS Macrocytosis 2+ 11/22/2015 7:[address] [facility] HISTORICAL RESULTS Poikilocytosis 2+ 11/22/2015 7:[address] [facility] HISTORICAL RESULTS Ovalocytes 211/22/2015 7:[address] [facility] HISTORICAL RESULTS 11/22/2015 6:29 AM CDT 11/22/2015 6:37 AM CDT Yobany Yadav MD LAB BLOOD ORDERABLES Final Result [facility] HISTORICAL RESULTS * (ABNORMAL) Hemogram with manual differential (11/21/2015 9:41 AM CDT) WBC 4.4(L) 4.6 - 10.2 x10 3/ul 11/21/2015 9:[address] [facility] HISTORICAL RESULTS RBC 3.17(L) 3.76 - 4.80 x10 6/ul 11/21/2015 9:[address] [facility] HISTORICAL RESULTS Hemoglobin 10.1(L) 11.0 - 15.0 g/dl Hct 30.4(L) 33.0 - 43.0 % MCV 95.9 80.0 - 97.0 fl MCH 31.9(H) 27.0 - 31.2 pg MCHC 33.2 31.8 - 35.4 g/dl RDW 21.2(H) 11.6 - 14.8 % Plt Count 186 124 - 400 x10 3/ul MPV 9.4 7.4 - 10.4 fl MANUAL DIFF MANUAL DIFF -------- --- Neutrophils % (Manual) 64 37 - 80 % Band Neutrophils % 13(H) 0 - 9 % 2015 11:32 AM [facility] HISTORICAL RESULTS Lymphocytes % (Manual) 12 10 - 51 % Monocytes % (Manual) 6 0 - 12 % Metamyelocytes % 3(H) 0 - 0 % 11/21/19 16 11:[address] [facility] HISTORICAL RESULTS Myelocytes % 1(H) 0 - 0 % Promyelocytes % 1(H) 0 - 0 % 6 11:32 AM [facility] HISTORICAL RESULTS ABSOLUTE COUNTS ABSOLUTE COUNTS -------- --- 11/21/2015 11:[address] [facility] HISTORICAL RESULTS Abs Neuts cells/mm3 3388 /ul 11/21/2015 11:[address] [facility] HISTORICAL RESULTS Absolute Neutrophils 2.8 1.7 - 8.7 x10 3/ul 11/21/2015 11:[address] [facility] HISTORICAL RESULTS Absolute Band Neuts 0.6(H) 0.0 - 0.3 x10 3/ul 11/21/2015 11:[address] [facility] HISTORICAL RESULTS Absolute Lymphocytes 0.5 0.2 - 4.6 x10 3/ul 11/21/2015 11:[address] [facility] HISTORICAL RESULTS Absolute Monocytes 0.3 0.1 - 1.5 x10 3/ul 11/21/2015 11:[address] [facility] HISTORICAL RESULTS Absolute Metamyelocyte 0.1(H) 0 - 0 x10 3/ul 11/21/2015 11:[address] [facility] HISTORICAL RESULTS Absolute Myelocytes 0.0 0 - 0 x10 3/ul 11/21/2015 11:[address] [facility] HISTORICAL RESULTS Absolute Promyelocytes 0.0 0 - 0 x10 3/ul 11/21/2015 11:32 AM T [facility] Nucl RBC Rel Cnt (Man) 16 /100 WBC 11/21/2015 11:[address] [facility] HISTORICAL RESULTS Platelet Evaluation AGREE AGREE 11/21/2015 11:[address] [facility] HISTORICAL RESULTS Comment:Slide review of plat elets correlates with instrument count. Polychromasia 1+ 11/21/2015 11:32 AM T [facility] Hypochromasia 1+ 11/21/2015 11:32 AM T [facility] Anisocytosis 1+ 11/21/2015 11:[address] [facility] HISTORICAL RESULTS 11/21/2015 9:41 AM CDT 11/21/2015 9:48 AM T Narrative [facility] HISTORICAL RESULTS - 11/21/2015 11:32 AM CDT us Celine Etienne MD LAB BLOOD ORDERABLES F inal Result [facility] HISTORICAL RESULTS * (ABNORMAL) Basic metabolic panel (11/21/2015 9:41 AM CDT) Sodium 135 135 - 145 mmol/L 11/21/2015 10:[address] [facility] HISTORICAL RESULTS Potassium 4.2 3.3 - 5.1 mmol/L 11/21/2015 10:[address] [facility] HISTORICAL RESULTS Chloride 95(L) 96 - 108 mmol/L 11/21/2015 10:[address] [facility] HISTORICAL RESULTS Carbon Dioxide 22 22 - 32 mmol/L Anion Gap 18(H) 7 - 16 Glucose 303(H) 70 - 100 mg/dL 11/21/2015 10:[address] [facility] HISTORICAL RESULTS BUN 22(H) 6 - 20 mg/dL Creatinine 0.9 0.5 - 1.1 mg/dL Comment: NOTE: Estimated GFR (Cockroft-Gault) will NOT be calculated unless patient Height and Weight were entered. Also, Kidney Disease Stage (GFR) and Estimated GFR (Cockroft-Gault) will NOT be calculated if Creatinine result is <0.2. Kidney Disease Stage 70 mL/MIN Comment: NOTE; ??The GFR is an [...] or on dialysis @ Est GFR (Cockcroft-G) 86 ml/MIN 11/21/2015 10:[address] [facility] HISTORICAL RESULTS Calcium 8.9 8.6 - 10.0 mg/dL 11/21/2015 10:[address] [facility] HISTORICAL RESULTS 11/21/2015 9:41 AM CDT 11/21/2015 9:48 AM CDT us Celine Etienne MD LAB BLOOD ORDERABLES F inal Result [facility] HISTORICAL RESULTS * XR Chest Pa Lateral 2 Views (11/21/2015 12:00 AM CDT) Anatomical Region Laterality Modality Body, Chest N/A Radiographic Sheyla ging 11/21/2015 Impressions 11/21/2015 9:49 AM CDT ?? 1. ??No evidence of an acute cardiopulmonary abnormality. 2. ??Emphysema with chronic interstitial change and mild bibasilar atelectasis. THIS IS AN ELECTRONICALLY VERIFIED REPORT 11/21/2015 9:32 AM: ??Jordon Eubanks M.D. Jordon Eubanks M.D. CH:ora 08:58 AM 09:05 AM [facility] [EOD] Narrative 11/21/2015 9:49 AM CDT EXAMINATION: ??Two-view chest HISTORY: ??Shortness of breath with worsening cough and chest pain since admission 11/16/2015. TECHNIQUE: ??PA and lateral chest. COMPARISON: ??11/16/2015. FINDINGS: ??Changes of emphysema are noted. ??Chronic-appearing interstitial changes are noted with persistent bibasilar atelectasis. ??A right chest port is seen with the tip over the lower SVC. ??The cardiac and mediastinal silhouette are unchanged. ??No acute osseous abnormality is identified. Procedure Note Provider, Fermin, - 01/23/2021 EXAMINATION: Two-view chest HISTORY: Shortness of breath with worsening cough and chest pain since admission 11/16/2015. TECHNIQUE: PA and lateral chest. COMPARISON: 11/16/2015. FINDINGS: Changes of emphysema are noted. Chronic-appearing interstitial changes are noted with persistent bibasilar atelectasis. A right chestport is seen with the tip over the lower SVC. The cardiac and mediastinal silhouette are unchanged. No acute osseous abnormality is identified. IMPRESSION: 1. No evidence of an acute cardiopulmonary abnormality. 2. Emphysema with chronic interstitial change and mild bibasilaratelectasis. THIS IS AN ELECTRONICALLY VERIFIED REPORT 11/21/2015 9:32 AM: Jordon Eubanks M.D. Jordon Eubanks M.D. CH:ora 08:58 AM 09:05 AM [facility] [EOD] Yobany Yadav MD IMG XR PROCEDURES Final Res ult * (ABNORMAL) Hemogram with manual differential (11/20/2015 10:16 AM CDT) WBC 4.0(L) 4.6 - 10.2 x10 3/ul 11/20/2015 11:05 AM T [facility] RBC 3.24(L) 3.76 - 4.80 x10 6/ul Hemoglobin 9.7(L) 11.0 - 15.0 g/dl Hct 31.6(L) 33.0 - 43.0 % MCV 97.5(H) 80.0 - 97.0 fl MCH 29.9 27.0 - 31.2 pg MCHC 30.7(L) 31.8 - 35.4 g/dl RDW 21.6(H) 11.6 - 14.8 % 11/20/2015 11:05 AM [facility] Plt Count 210 124 - 400 x10 3/ul MPV 10.4 7.4 - 10.4 fl 11/20/2015 11:05 AM [facility] Differential Method AUTOMATED DIFF -------- --- Neut % 67.9 37.0 - 85.0 % 11/20/2015 11:05 AM [facility] Immature Gran % 8.5(H) 0.0 - 3.0 % 11/20/2015 11:05 AM [facility] Lymph % 9.0 5.0 - 45.0 % 11/20/2015 11:05 AM [facility]ULTS Waldo % 14.1 3.0 - 15.0 % Eos % 0.0 0.0 - 7.0 % 11/20/2015 11:05 AM [facility] Baso % 0.5 0.0 - 2.0 % 11/20/2015 11:05 AM [facility] ABSOLUTE COUNTS ABSOLUTE COUNTS -------- --- 11/20/2015 11:05 AM [facility] Absolute Neuts (auto) 2.7 1.7 - 8.7 x10 3/ul 11/20/2015 11:[address] [facility] HISTORICAL RESULTS Immature Gran # 0.3 0.0 - 0.3 x10 3/ul 11/20/2015 11:[address] [facility] HISTORICAL RESULTS Absolute Lymphs (auto) 0.4 0.2 - 4.6 x10 3/ul Absolute Monos (auto) 0.6 0.1 - 1.5 x10 3/ul Absolute Eos (auto) 0.0 0.0 - 0.7 x10 3/ul Absolute Basos (auto) 0.0 0.0 - 0.2 x10 3/ul Platelet Evaluation AGREE AGREE Comment:Slide review of plat elets correlates with instrument count. Polychromasia 1+ Hypochromasia 1+ Anisocytosis 1+ 11/20/2015 10:1 6 AM CDT 11/20/2015 10:46 AM CDT us Yobany Yadav MD LAB BLOOD ORDERABLES Final Result [facility] HISTORICAL RESULTS * Magnesium (11/20/2015 10:16 AM CDT) Magnesium 2.1 1.6 - 2.6 mg/dL 11/20/2015 11:[address] [facility] HISTORICAL RESULTS Comment:Magnesium sulfate th erapy: 3.0-9.1 mg/dL 11/20/2015 10:1 6 AM CDT 11/20/2015 10:46 AM CDT us Yobany Yadav MD LAB BLOOD ORDERABLES Final Result [facility] HISTORICAL RESULTS * (ABNORMAL) Comprehensive metabolic panel (11/20/2015 10:16 AM T) Sodium 136 135 - 145 mmol/L 11/20/2015 11:[address] [facility] HISTORICAL RESULTS Potassium 3.9 3.3 - 5.1 mmol/L 11/20/2015 11:[address] [facility] HISTORICAL RESULTS Chloride 92(L) 96 - 108 mmol/L Carbon Dioxide 20(L) 22 - 32 mmol/L Anion Gap 24(H) 7 - 16 Glucose 336(H) 70 - 100 mg/dL BUN 18 6 - 20 mg/dL Creatinine 0.8 0.5 - 1.1 mg/dL Comment: NOTE: Estimated GFR (Cockroft-Gault) will NOT be calculated unless patient Height and Weight were entered. Also, Kidney Disease Stage (GFR) and Estimated GFR (Cockroft-Gault) will NOT be calculated if Creatinine result is <0.2. Kidney Disease Stage 80 mL/MIN Comment: NOTE; ??The GFR is an [...] or on dialysis @ Est GFR (Cockcroft-G) 96 ml/MIN Calcium 9.1 8.6 - 10.0 mg/dL Total Protein 6.5 6.4 - 8.3 g/dL Albumin 4.3 3.5 - 5.2 g/dL Globulin 2.2(L) 2.3 - 3.5 gm/dL Albumin/Globulin Ratio 2.0(H) 1.1 - 1.8 Total Bilirubin < 0.2 0.0 - 1.2 mg/dL AST 17 0 - 32 U/L Comment:SLIGHTLY HEMOLYZED ALT 27 0 - 33 U/L Alkaline Phosphatase 80 35 - 104 U/L 11/20/2015 10:1 6 AM CDT 11/20/2015 10:46 AM CDT us Yobany Yadav MD LAB BLOOD ORDERABLES Final Result [facility] [place] HISTORICAL RESULTS * (ABNORMAL) Serum Chlamydia ab, IgG, IgM (11/19/2015 1:43 PM CDT) C. pneumoniae IgM titer <1:20 <1:20 0 C. trachomatis IgM <1:20 <1:20 2015 12:25 AM [facility] HISTORICAL RESULTS C. psittaci IgM Titer <1:20 <1:20 12:25 AM [facility] HISTORICAL RESULTS C. pneumoniae IgG titer <1:64 <1:64 0 C. trachomatis IgG 1:64(H) <1:64 2015 12:25 AM [facility] HISTORICAL RESULTS C. psittaci IgG Titer <1:64 <1:64 12:25 AM [facility] HISTORICAL RESULTS Comment: INTERPRETIVE INFORMATION: C. psittaci IgG Titer ?? The Chlamydia antibody test contains both species- and ?? genus- specific antigens, and serological cross-reactions ?? may be seen in both acute and convalescent samples (less ?? than 1:128). A C. pneumoniae-specific reaction will exhibit ?? titers twofold or greater than titers observed with the C. ?? trachomatis or C. psittaci serology. Any IgG titer may ?? indicate past exposure to that particular species. IgG ?? titers in recently infected individuals are typically ?? greater than or equal 1:512. ?? The Chlamydia microimmunofluorescent assay slides utilize ?? C. psittaci, C. pneumoniae, and nine serotypes of C. ?? trachomatis. The LGV strains of C. trachomatis are not ?? included in this assay. ?? Test developed and characteristics determined by [facility]. See Compliance Statement A: [employer] ?? Performed by [employer], ?? [address] [place] [address] ?? [email or web address], Maurisio Larkin MD, Lab. Director ?? 11/19/2015 1:43 PM CDT 11/19/2015 1:59 PM CDT us Yobany Yadav MD LAB BLOOD ORDERABLES Final Result [facility] HISTORICAL RESULTS * (ABNORMAL) Hemogram with manual differential (11/19/2015 7:20 AM CDT) WBC 3.5(L) 4.6 - 10.2 x10 3/ul 11/19/2015 7:42 AM CDT [facility] RBC 2.96(L) 3.76 - 4.80 x10 6/ul 11/19/2015 7:42 AM CDT [facility]OR[facility] RESULTS Hemoglobin 9.0(L) 11.0 - 15.0 g/dl 11/19/2015 7:42 AM CDT [facility]OR[facility] RESULTS Hct 28.7(L) 33.0 - 43.0 % 11/19/2015 7:42 AM CDT [facility]OR[facility] RESULTS MCV 97.0 80.0 - 97.0 fl 11/19/2015 7:42 AM CDT [facility] RES[facility] MCH 30.4 27.0 - 31.2 pg 11/19/2015 7:42 AM CDT [facility] RESULTS MCHC 31.4(L) 31.8 - 35.4 g/dl 11/19/2015 7:42 AM CDT [facility] [employer] H[facility]ORICAL RESULTS RDW 21.4(H) 11.6 - 14.8 % 11/19/2015 7:42 AM CDT [facility] Plt Count 185 124 - 400 x10 3/ul 11/19/2015 7:42 AM CDT [facility]OR[facility] RESULTS MPV 10.1 7.4 - 10.4 fl 11/19/2015 7:42 AM T [facility] Differential Method AUTOMATED DIFF -------- --- 11/19/2015 7:42 AM CDT [facility] RESULTS Neut % 73.0 37.0 - 85.0 % 11/19/2015 7:42 AM CDT [facility] Immature Gran % 5.5(H) 0.0 - 3.0 % 11/19/2015 7:42 AM CDT [facility]ULTS Lymph % 8.3 5.0 - 45.0 % Waldo % 12.9 3.0 - 15.0 % Eos % 0.0 0.0 - 7.0 % Baso % 0.3 0.0 - 2.0 % ABSOLUTE COUNTS ABSOLUTE COUNTS -------- --- Absolute Neuts (auto) 2.5 1.7 - 8.7 x10 3/ul Immature Gran # 0.2 0.0 - 0.3 x10 3/ul Absolute Lymphs (auto) 0.3 0.2 - 4.6 x10 3/ul Absolute Monos (auto) 0.5 0.1 - 1.5 x10 3/ul Absolute Eos (auto) 0.0 0.0 - 0.7 x10 3/ul Absolute Basos (auto) 0.0 0.0 - 0.2 x10 3/ul Platelet Evaluation AGREE AGREE Comment:Slide review of plat elets correlates with instrument count. Polychromasia 1+ Hypochromasia 1+ Anisocytosis 1+ Poikilocytosis 1+ 11/19/2015 7:20 AM CDT 11/19/2015 7:32 AM CDT us Yobany Yadav MD LAB BLOOD ORDERABLES Final Result Performing Organization Address [facility]/ZIP Co de Phone Number [facility] HISTORICAL RESULTS * Phosphorus (11/19/2015 7:20 AM CDT) Phosphorus 3.0 2.5 - 4.5 mg/dL 11/19/2015 8:[address] [facility] HISTORICAL RESULTS 11/19/2015 7:20 AM CDT 11/19/2015 7:32 AM CDT us Yobany Yadav MD LAB BLOOD ORDERABLES Final Result Performing Organization Address [facility] de Phone Number [facility] HISTORICAL RESULTS * Magnesium (11/19/2015 7:20 AM CDT) Magnesium 2.0 1.6 - 2.6 mg/dL 11/19/2015 8:[address] [facility] HISTORICAL RESULTS Comment:Magnesium sulfate th erapy: 3.0-9.1 mg/dL 11/19/2015 7:20 AM CDT 11/19/2015 7:32 AM CDT us Yobany Yadav MD LAB BLOOD ORDERABLES Final Result Performing Organization Address [facility] Co de Phone Number [facility] HISTORICAL RESULTS * (ABNORMAL) Comprehensive metabolic panel (11/19/2015 7:20 AM CDT) Sodium 137 135 - 145 mmol/L 11/19/2015 8:[address] [facility] HISTORICAL RESULTS Potassium 4.3 3.3 - 5.1 mmol/L 11/19/2015 8:[address] [facility] HISTORICAL RESULTS Chloride 97 96 - 108 mmol/L 11/19/2015 8:[address] [facility] HISTORICAL RESULTS Carbon Dioxide 23 22 - 32 mmol/L 11/19/2015 8:[address] [facility] HISTORICAL RESULTS Anion Gap 17(H) 7 - 16 Glucose 239(H) 70 - 100 mg/dL 11/19/2015 8:03 AM [facility] BUN 17 6 - 20 mg/dL Creatinine 0.6 0.5 [...] dialysis @ Est GFR (Cockcroft-G) 128 ml/MIN 11/19/2015 8:03 AM [facility] RESULTS Calcium 9.5 8.6 - 10.0 mg/dL 11/19/2015 8:03 AM [facility]ULTS Total Protein 6.6 6.4 - 8.3 g/dL Albumin 4.1 3.5 - 5.2 g/dL 11/19/2015 8:[address] [facility] HISTORICAL RESULTS Globulin 2.5 2.3 - 3.5 gm/dL 11/19/2015 8:[address] [facility] HISTORICAL RESULTS Albumin/Globulin Ratio 1.6 1.1 - 1.8 11/19/2015 8:[address] [facility] HISTORICAL RESULTS Total Bilirubin < 0.2 0.0 - 1.2 mg/dL AST 13 0 - 32 U/L ALT 25 0 - 33 U/L Alkaline Phosphatase 81 35 - 104 U/L 11/19/2015 7:20 AM CDT 11/19/2015 7:32 AM T Yobany Yadav MD LAB BLOOD ORDERABLES Final Result [facility] HISTORICAL RESULTS * Strep pneumoniae antigen, urine (11/18/2015 9:50 PM AUGER SUPERVISOR) Ur Strep pneumoniae Ag NEGATIVE NEGATIVE 11/18/2015 9:50 PM AUGER SUPERVISOR 11/18/2015 10:08 PM AUGER SUPERVISOR Narrative [facility] HISTORICAL RESULTS - 11/18/2015 10:26 PM AUGER SUPERVISOR Collected By RA ?? Urine collection method Clean catch Yobany Yadav MD LAB MICROBIOLOGY - GENERAL ORDERABLES Final Result [facility] HISTORICAL RESULTS * Legionella pneumophilia antigen, urine (11/18/2015 9:50 PM AUGER SUPERVISOR) URINE LEGIONELLA PNEUMO AG Negative Negative 11/20/2015 11:[address] [facility] HISTORICAL RESULTS Comment: Sample is negative for the presence of L. pneumophila ?? serogroup 1 antigen in urine, suggesting no recent or ?? current infection. Legionnaires' Disease cannot be ruled ?? out since other serogroups and species may also cause ?? disease. ?? INTERPRETIVE INFORMATION: Legionella pneumophila Antigen, ?? Urine ?? This assay detects Legionella pneumophila serogroup one (1) ?? antigen. ?? Performed by [employer], ?? [address] [place] [address] ?? [email or web address], Maurisio Larkin MD, Lab. Director ?? 11/18/2015 9:50 PM AUGER SUPERVISOR 11/18/2015 10:08 PM AUGER SUPERVISOR Narrative [facility] HISTORICAL RESULTS - 11/20/2015 11:31 PM CDT Collected By:RA ?? Urine collection method Clean catch Yobany Yadav MD LAB MICROBIOLOGY - GENERAL ORDERABLES Final Result [facility] HISTORICAL RESULTS * Histoplasma antigen, urine (11/18/2015 9:50 PM AUGER SUPERVISOR) Histoplasma Ag, ur Not Detected Not Detected 11/21/2015 2:[address] [facility] HISTORICAL RESULTS Comment: INTERPRETIVE DATA: Histoplasma Galactomannan Antigen ? Quantitative by EIA, Urine ?? Less than 0.4 ng/ml = Not Detected ?? 0.4-3.1 ng/mL = Detected (below the limit of quantification) ?? 3.2-20.0 ng/mL = Detected ?? Greater than 20.0 ng/mL = Detected (above the limit of ?? quantification) ?? The quantitative range of this assay is 3.2-20.0 ng/mL. ?? Antigen concentrations between 0.4-3.1 or >20.0 ng/mL fall ?? outside the linear range of the assay and cannot be ?? accurately quantified. ?? This EIA test should be used in conjunction with other ?? diagnostic procedures, including microbiological culture, ?? histological examination of biopsy samples, and/or ?? radiographic evidence, to aid in the diagnosis of ?? histoplasmosis. ?? Test developed and characteristics determined by [facility]. ??See Compliance Statement B: [employer] ?? Performed by [employer], ?? [address], [facility] [place] [address] ?? [email or web address], Maurisio Larkin MD, Lab. Director ?? Histoplasma Ag interp, ur Not Detected () ng/mL 11/21/2015 2:[address] [facility] HISTORICAL RESULTS 11/18/2015 9:50 PM AUGER SUPERVISOR 11/18/2015 10:08 PM AUGER SUPERVISOR Narrative [facility] HISTORICAL RESULTS - 11/21/2015 2:12 PM CDT Collected By:RA ?? Urine collection method Clean catch Yobany Yadav MD LAB URINE ORDERABLES Final Result [facility] HISTORICAL RESULTS * (ABNORMAL) UA with Culture Reflex (11/18/2015 9:50 PM AUGER SUPERVISOR) Ur Collection Type CLEAN CATCH Ur Culture Indicated? C&S NOT INDICATED Urine Color STRAW YELLOW Urine Clarity CLEAR CLEAR Urine Glucose (UA) 1000(H) NORMAL mg/dL Urine Bilirubin NEGATIVE NEGATIVE mg/dl Urine Ketones NEGATIVE NEGATIVE mg/dL Ur Specific [place] 1.011 1.005 - 1.025 Urine Blood NEGATIVE NEGATIVE mg/dl Urine pH 6.0 5.0 - 8.0 Urine Protein NEGATIVE NEGATIVE mg/dL Urine Urobilinogen NORMAL NORMAL mg/dL Urine Nitrite NEGATIVE NEGATIVE Ur Leukocyte Esterase NEGATIVE NEGATIVE Jose Maria/ul Ur Microscopic Review Not Indicated 11/18/2015 9:50 PM AUGER SUPERVISOR 11/18/2015 10:08 PM AUGER SUPERVISOR us Yobany Yadav MD LAB URINE ORDERABLES Final Result [facility] HISTORICAL RESULTS * MRSA PCR, surveillance (11/18/2015 9:33 PM AUGER SUPERVISOR) MRSA Surveill Initial MRSA NEGATIVE NEGATIVE Comment:MRSA target DNA sequ ences are not detected. 11/18/2015 9:33 PM AUGER SUPERVISOR 11/18/2015 9:56 PM AUGER SUPERVISOR Narrative [facility] HISTORICAL RESULTS - 11/18/2015 11:05 PM AUGER SUPERVISOR Collected By RA us Yobany Yadav MD LAB MICROBIOLOGY - GENERAL ORDERABLES Final Result [facility] HISTORICAL RESULTS * Influenza A/B antigens, rapid (11/18/2015 9:33 PM AUGER SUPERVISOR) Influenza A Ag NEGATIVE NEGATIVE 11/18/2015 10:15 PM AUGER SUPERVISOR [facility] HISTORICAL RESULTS Influenza B Ag NEGATIVE NEGATIVE Comment: A NEGATIVE RESULT DOES NOT ELIMINATE THE POSSIBILITY OF AN ?? INFLUENZA A OR B INFECTION. ??INADEQUATE SPECIMEN COLLECTION ?? OR IMPROPER SAMPLE HANDLING/TRANSPORT, OR LOW LEVELS OF ?? VIRAL SHEDDING MAY YIELD A FALSE NEGATIVE RESULT. 11/18/2015 9:33 PM AUGER SUPERVISOR 11/18/2015 9:56 PM AUGER SUPERVISOR Narrative [facility] HISTORICAL RESULTS - 11/18/2015 10:15 PM AUGER SUPERVISOR Collected By RA Yobany Yadav MD LAB MICROBIOLOGY - GENERAL ORDERABLES Final Result Performing Organization Address [facility] Co de Phone Number [facility] HISTORICAL RESULTS * Microbiology Specimen Report (Converted) (11/18/2015 6:51 PM AUGER SUPERVISOR) 11/18/2015 6:51 PM AUGER SUPERVISOR 11/18/2015 6:58 PM AUGER SUPERVISOR Narrative [facility] HISTORICAL RESULTS - 11/18/2015 6:51 PM AUGER SUPERVISOR Microbiology Specimen Report (Converted) SPECIMEN [id number] ?? COLLECTED: 2015-11-18 18:51:00 [id number] ?? REQ#: [id number] REQUESTING DR: Yobany Yadav MD ?? SOURCE: BLOOD ?? SP DESC: COMMENT: RARM BC Draw ?? --- PROCEDURE --- ?--- RESULT --- ?? CULTURE BLOOD ADULT (SET OF 2) ??(Final) ??- ??Performed at [facility] ?* NO GROWTH DAY 4 - [facility] ? [address] [place] [address] ? [place] [address] ? Amandeep Peterson MD Procedure Note 11/28/2018 Microbiology Specimen Report (Converted) SPECIMEN [id number] COLLECTED: 2015-11-18 18:51:00 [id number] REQ#:[id number] REQUESTING DR: Yobany Yadav MD SOURCE: BLOOD SP DESC: COMMENT: RARM BC Draw --- PROCEDURE --- --- RESULT --- CULTURE BLOOD ADULT (SET OF 2) (Final) - Performed at [facility] * NO GROWTH DAY 4 [place] [address] Amandeep Peterson MD us Yobany Yadav MD LAB BLOOD ORDERABLES Final Result Performing Organization Address [facility]/ZIP Co de Phone Number [facility] HISTORICAL RESULTS * Microbiology Specimen Report (Converted) (11/18/2015 5:56 PM AUGER SUPERVISOR) 11/18/2015 5:56 PM AUGER SUPERVISOR 11/18/2015 6:03 PM AUGER SUPERVISOR Narrative [facility] HISTORICAL RESULTS - 11/18/2015 5:56 PM AUGER SUPERVISOR Microbiology Specimen Report (Converted) SPECIMEN [id number] ?? COLLECTED: 2015-11-18 17:56:00 [id number] ?? REQ#: [id number] REQUESTING DR: Yobany Yadav MD ?? SOURCE: BLOOD ?? SP DESC: COMMENT: RAC BC Draw ?? --- PROCEDURE --- ?--- RESULT --- ?? CULTURE BLOOD ADULT (SET OF 2) ??(Final) ??- ??Performed at [facility] ?* NO GROWTH DAY 4 - [facility] ? [address] [place] [address] ? [place] [address] ? Amandeep Peterson MD Procedure Note 11/28/2018 Microbiology Specimen Report (Converted) SPECIMEN [id number] COLLECTED: 2015-11-18 17:56:00 [id number] REQ#:[id number] REQUESTING DR: Yobany Yadav MD SOURCE: BLOOD SP DESC: COMMENT: RAC BC Draw --- PROCEDURE --- --- RESULT --- CULTURE BLOOD ADULT (SET OF 2) (Final) - Performed at [facility] * NO GROWTH DAY 4 [place] [address] Amandeep Peterson MD Yobany Yadav MD LAB BLOOD ORDERABLES Final Result [facility] HISTORICAL RESULTS * PROCALCITONIN Post-antibiotic (11/18/2015 5:56 PM AUGER SUPERVISOR) Pathologist [facility] PROCALCITONIN Post-antibiotic 0.05 0 - 0.24 ng/mL 11/18/2015 7:07 PM AUGER SUPERVISOR [facility] HISTORICAL RESULTS Comment: Guidelines for use with Community Acquired Pneumonia(CAP)-ONLY: ?? <0.1 ng/mL or decrease by >90% from initial: ?Cessation of antibiotics is STRONGLY encouraged ?? 0.1-0.24 ng/mL or decrease by >80% from initial: ?Cessation of antibiotics is encouraged ?? 0.25-0.5 ng/mL: Cessation of antibiotics is discouraged ?? >0.5 ng/mL: Cessation of antibiotics is STRONGLY discouraged 11/18/2015 5:56 PM AUGER SUPERVISOR 11/18/2015 6:03 PM AUGER SUPERVISOR [facility] HISTORICAL RESULTS - 11/18/2015 7:07 PM AUGER SUPERVISOR RAC BC Draw ?? us Yobany Yadav MD LAB BLOOD ORDERABLES Final Result Performing Organization Address [facility] Phone Number [facility] HISTORICAL RESULTS * Mycoplasma pneumoniae antibody, IgM (11/18/2015 5:56 PM AUGER SUPERVISOR) Pathologist [facility] M. pneumoniae IgM NEGATIVE NEGATIVE 11/18/2015 8:50 PM AUGER SUPERVISOR [facility] HISTORICAL RESULTS 11/18/2015 5:56 PM AUGER SUPERVISOR 11/18/2015 6:03 PM AUGER SUPERVISOR [facility] HISTORICAL RESULTS - 11/18/2015 8:50 PM AUGER SUPERVISOR RAC BC Draw ?? us Yobany Yadav MD LAB BLOOD ORDERABLES Final Result Performing Organization Address [facility] de Phone Number [facility] HISTORICAL RESULTS * (ABNORMAL) IgE (11/18/2015 5:56 PM AUGER SUPERVISOR) Pathologist [facility] IgE 133(H) 0 - 100 IU/mL 11/18/2015 6:45 PM AUGER SUPERVISOR [facility] HISTORICAL RESULTS 11/18/2015 5:56 PM AUGER SUPERVISOR 11/18/2015 6:03 PM AUGER SUPERVISOR [facility] HISTORICAL RESULTS - 11/18/2015 6:45 PM AUGER SUPERVISOR RAC BC Draw ?? us Yobany Yadav MD LAB BLOOD ORDERABLES Final Result Performing Organization Address [facility] de Phone Number [facility] HISTORICAL RESULTS * (ABNORMAL) CRP (acute phase) (11/18/2015 5:56 PM AUGER SUPERVISOR) [facility] C-Reactive Protein 5.9(H) 0.0 - 4.9 mg/L 11/18/2015 5:56 PM AUGER SUPERVISOR 11/18/2015 6:03 PM [facility] HISTORICAL RESULTS - 11/18/2015 6:45 PM AUGER SUPERVISOR RAC BC Draw ?? us Yobany Yadav MD LAB BLOOD ORDERABLES Final Result Performing Organization Address [facility] de Phone Number [facility] HISTORICAL RESULTS * B-type natriuretic peptide (11/18/2015 5:56 PM AUGER SUPERVISOR) [facility] B-Natriuretic Peptide 99 0 - 100 pg/mL Comment: B Natriutetic Peptide METHOD: ??Siemens Centaur XP using ANTHONY. Decision threshold of 100 pg/mL has been demonstrated to provide the maximal combination of sensitivity, specificity, and predictive value for the diagnosis of congestive heart failure (CHF). ??Virtually all patients with no evidence of CHF have BNP values <100 pg/mL. ?? NOTE: ??Nesiritide (Natrecor) interferes with the BNP assay. BNP result will be invalid if drawn within 2 hours of bolus or infusion of nesiritide. 11/18/2015 5:5 6 PM AUGER SUPERVISOR 11/18/2015 6:03 PM [facility] HISTORICAL RESULTS - 11/18/2015 6:43 PM AUGER SUPERVISOR RAC BC Draw ?? us Yobany Yadav MD LAB BLOOD ORDERABLES Final Result Performing Organization Address [facility] de Phone Number [facility] HISTORICAL RESULTS * (ABNORMAL) CBC with auto differential (11/18/2015 6:15 AM AUGER SUPERVISOR) [facility] WBC 2.7(L) 4.6 - 10.2 x10 3/ul Comment:Results reviewed RBC 2.81(L) 3.76 - 4.80 x10 6/ul 11/18/2015 6:57 AM [employer] [facility] [employer] HISTORICAL RESULTS Comment:Results reviewed Hemoglobin 8.9(L) 11.0 - 15.0 g/dl 11/18/2015 6:57 AM [employer] [facility] [employer] HISTORICAL RESULTS Hct 27.2(L) 33.0 - 43.0 % 11/18/2015 6:57 AM [employer] [facility] [employer] HISTORICAL RESULTS MCV 96.8 80.0 - 97.0 fl 11/18/2015 6:57 AM [employer] [facility] [employer] HISTORICAL RESULTS MCH 31.7(H) 27.0 - 31.2 pg 11/18/2015 6:57 AM [email or web address] HISTORICAL RESULTS MCHC 32.7 31.8 - 35.4 g/dl 11/18/2015 6:57 AM [employer] [facility] [employer] HISTORICAL RESULTS RDW 21.3(H) 11.6 - 14.8 % 11/18/2015 6:57 AM [employer] [facility] [employer] HISTORICAL RESULTS Plt Count 186 124 - 400 x10 3/ul 11/18/2015 6:57 AM [employer] [facility] [employer] HISTORICAL RESULTS MPV 11.1(H) 7.4 - 10.4 fl 11/18/2015 6:57 AM [employer] [facility] [employer] HISTORICAL RESULTS Differential Method AUTOMATED DIFF --------- -- 11/18/2015 6:57 AM [employer] [facility] [employer] HISTORICAL RESULTS Neut % 79.8 37.0 - 85.0 % 11/18/2015 6:57 AM [email or web address] HISTORICAL RESULTS Immature Gran % 1.1 0.0 - 3.0 % 11/18/2015 6:57 AM [email or web address] HISTORICAL RESULTS Lymph % 7.7 5.0 - 45.0 % 11/18/2015 6:57 AM [employer] [facility] [employer] HISTORICAL RESULTS Waldo % 11.4 3.0 - 15.0 % 11/18/2015 6:57 AM [email or web address] HISTORICAL RESULTS Eos % 0.0 0.0 - 7.0 % 11/18/2015 6:57 AM [email or web address] HISTORICAL RESULTS Baso % 0.0 0.0 - 2.0 % 11/18/2015 6:57 AM [employer] [facility] [employer] HISTORICAL RESULTS ABSOLUTE COUNTS ABSOLUTE COUNTS --------- -- Absolute Neuts (auto) 2.2 1.7 - 8.7 x10 3/ul Immature Gran # 0.0 0.0 - 0.3 x10 3/ul Absolute Lymphs (auto) 0.2 0.2 - 4.6 x10 3/ul Absolute Monos (auto) 0.3 0.1 - 1.5 x10 3/ul Absolute Eos (auto) 0.0 0.0 - 0.7 x10 3/ul Absolute Basos (auto) 0.0 0.0 - 0.2 x10 3/ul 11/18/2015 6:15 AM AUGER SUPERVISOR 11/18/2015 6:27 AM [facility] Celine Etienne MD LAB BLOOD ORDERABLES F inal Result [facility] HISTORICAL RESULTS * (ABNORMAL) Basic metabolic panel (11/18/2015 6:15 AM AUGER SUPERVISOR) Sodium 138 135 - 145 mmol/L 11/18/2015 7:04 AM [facility] Potassium 4.5 3.3 - 5.1 mmol/L 11/18/2015 7:04 AM [facility] Chloride 100 96 - 108 mmol/L Carbon Dioxide 22 22 - 32 mmol/L 11/18/2015 7:04 AM [facility] RESULTS Anion Gap 16 7 - 16 Glucose 278(H) 70 - 100 mg/dL 11/18/2015 7:04 AM [email or web address] HISTORICAL RESULTS BUN 14 6 - 20 mg/dL 11/18/2015 7:04 AM [employer] [facility] [employer] HISTORICAL RESULTS Creatinine 0.6 0.5 - 1.1 mg/dL 11/18/2015 7:04 AM [email or web address] HISTORICAL RESULTS Comment: NOTE: Estimated GFR (Cockroft-Gault) will NOT be calculated unless patient Height and Weight were entered. Also, Kidney Disease Stage (GFR) and Estimated GFR (Cockroft-Gault) will NOT be calculated if Creatinine result is <0.2. Kidney Disease Stage > 90 mL/MIN 11/18/2015 7:04 AM [email or web address] HISTORICAL RESULTS Comment: NOTE; ??The GFR is [...] dialysis @ Est GFR (Cockcroft-G) 128 ml/MIN 11/18/2015 7:04 AM [email or web address] HISTORICAL RESULTS Calcium 9.1 8.6 - 10.0 mg/dL 11/18/2015 7:04 AM [email or web address] HISTORICAL RESULTS 11/18/2015 6:15 AM AUGER SUPERVISOR 11/18/2015 6:27 AM AUGER SUPERVISOR us Celine Etienne MD LAB BLOOD ORDERABLES F inal Result [facility] [employer] HISTORICAL RESULTS * (ABNORMAL) CBC with auto differential (11/17/2015 7:10 AM AUGER SUPERVISOR) WBC 1.7(L) 4.6 - 10.2 x10 3/ul 11/17/2015 7:56 AM AUGER SUPERVISOR [facility] [employer] HISTORICAL RESULTS RBC 3.34(L) 3.76 - 4.80 x10 6/ul 11/17/2015 7:56 AM AUGER SUPERVISOR [facility] [employer] HISTORICAL RESULTS Hemoglobin 10.4(L) 11.0 - 15.0 g/dl 11/17/2015 7:56 AM AUGER SUPERVISOR [facility] [employer] HISTORICAL RESULTS Hct 31.9(L) 33.0 - 43.0 % 11/17/2015 7:56 AM [facility] [employer] HISTORICAL RESULTS MCV 95.5 80.0 - 97.0 fl 11/17/2015 7:56 AM [facility] HISTORICAL RESULTS MCH 31.1 27.0 - 31.2 pg 11/17/2015 7:56 AM [employer] [facility] HISTORICAL RESULTS MCHC 32.6 31.8 - 35.4 g/dl 11/17/2015 7:56 AM [facility] HISTORICAL RESULTS RDW 20.8(H) 11.6 - 14.8 % 11/17/2015 7:56 AM [facility] HISTORICAL RESULTS Plt Count 181 124 - 400 x10 3/ul 11/17/2015 7:56 AM [facility] HISTORICAL RESULTS MPV 10.7(H) 7.4 - 10.4 fl 11/17/2015 7:56 AM [facility] HISTORICAL RESULTS Differential Method AUTOMATED DIFF --------- -- 11/17/2015 7:56 AM [facility] HISTORICAL RESULTS Neut % 80.6 37.0 - 85.0 % 11/17/2015 7:56 AM [facility] HISTORICAL RESULTS Immature Gran % 1.2 0.0 - 3.0 % 11/17/2015 7:56 AM [facility] HISTORICAL RESULTS Lymph % 13.5 5.0 - 45.0 % 11/17/2015 7:56 AM [facility] HISTORICAL RESULTS Waldo % 4.7 3.0 - 15.0 % Eos % 0.0 0.0 - 7.0 % Baso % 0.0 0.0 - 2.0 % ABSOLUTE COUNTS ABSOLUTE COUNTS --------- -- Absolute Neuts (auto) 1.4(L) 1.7 - 8.7 x10 3/ul Immature Gran # 0.0 0.0 - 0.3 x10 3/ul Absolute Lymphs (auto) 0.2 0.2 - 4.6 x10 3/ul Absolute Monos (auto) 0.1 0.1 - 1.5 x10 3/ul Absolute Eos (auto) 0.0 0.0 - 0.7 x10 3/ul Absolute Basos (auto) 0.0 0.0 - 0.2 x10 3/ul 11/17/2015 7:10 AM AUGER SUPERVISOR 11/17/2015 7:52 AM [facility] Elie Matos MD LAB BLOOD ORDERABLES Final Result [facility] HISTORICAL RESULTS * (ABNORMAL) Basic metabolic panel (11/17/2015 6:34 AM AUGER SUPERVISOR) Sodium 139 135 - 145 mmol/L Potassium 4.9 3.3 - 5.1 mmol/L Chloride 100 96 - 108 mmol/L Carbon Dioxide 23 22 - 32 mmol/L 11/17/2015 7:15 AM [email or web address] Application HISTORICAL RESULTS Anion Gap 16 7 - 16 11/17/2015 7:15 AM [email or web address] Application HISTORICAL RESULTS Glucose 204(H) 70 - 100 mg/dL 11/17/2015 7:15 AM [email or web address] Application HISTORICAL RESULTS BUN 13 6 - 20 mg/dL 11/17/2015 7:15 AM [email or web address] Application HISTORICAL RESULTS Creatinine 0.6 0.5 - 1.1 mg/dL 11/17/2015 7:15 AM [email or web address] Application HISTORICAL RESULTS Comment: NOTE: Estimated GFR (Cockroft-Gault) will NOT be calculated unless patient Height and Weight were entered. Also, Kidney Disease Stage (GFR) and Estimated GFR (Cockroft-Gault) will NOT be calculated if Creatinine result is <0.2. Kidney Disease Stage > 90 mL/MIN 11/17/2015 7:15 AM [email or web address] Application HISTORICAL RESULTS Comment: NOTE; ??The GFR is [...] dialysis @ Est GFR (Cockcroft-G) 128 ml/MIN 11/17/2015 7:15 AM [email or web address] Application HISTORICAL RESULTS Calcium 9.5 8.6 - 10.0 mg/dL 11/17/2015 6:34 AM AUGER SUPERVISOR 11/17/2015 6:48 AM AUGER SUPERVISOR us Elie Maots MD LAB BLOOD ORDERABLES Final Result Performing Organization Address [facility] Co de Phone Number [facility] HISTORICAL RESULTS * Slide review - pathologist (11/16/2015 6:40 PM AUGER SUPERVISOR) Diff Slide Review SLIDE REVIEW Comment: Pathologist Review of Peripheral Blood Smear ?? Pathologist Review of Peripheral Blood Smear ?? Pathologist Review of Peripheral Blood Smear Hem Pathologist Commnt Comment:Agree with different ial/morphology. Path Cons Sign Path Pathologist Comment:Reviewed by Grover Tam M.D. 11/16/2015 6:40 PM AUGER SUPERVISOR 11/16/2015 6:48 PM AUGER SUPERVISOR us Rupinder Mark LAB BLOOD ORDERABLES Final Resul t Performing Organization Address [facility] Co de Phone Number [facility] HISTORICAL RESULTS * (ABNORMAL) Hemogram with manual differential (11/16/2015 6:40 PM AUGER SUPERVISOR) WBC 2.0(L) 4.6 - 10.2 x10 3/ul RBC 3.44(L) 3.76 - 4.80 x10 6/ul Hemoglobin 10.7(L) 11.0 - 15.0 g/dl Hct 32.6(L) 33.0 - 43.0 % MCV 94.8 80.0 - 97.0 fl MCH 31.1 27.0 - 31.2 pg MCHC 32.8 31.8 - 35.4 g/dl RDW 21.1(H) 11.6 - 14.8 % Plt Count 169 124 - 400 x10 3/ul MPV 9.9 7.4 - 10.4 fl MANUAL DIFF MANUAL DIFF -------- --- Comment:PATHOLOGIST'S COMMEN TS TO FOLLOW. Neutrophils % (Manual) 65 37 - 80 % Lymphocytes % (Manual) 18 10 - 51 % Monocytes % (Manual) 16(H) 0 - 12 % Metamyelocytes % 1(H) 0 - 0 % 11/16/19 16 8:07 PM [facility] HISTORICAL RESULTS ABSOLUTE COUNTS ABSOLUTE COUNTS -------- --- Abs Neuts cells/mm3 1300 /ul Absolute Neutrophils 1.3(L) 1.7 - 8.7 x10 3/ul Absolute Lymphocytes 0.4 0.2 - 4.6 x10 3/ul Absolute Monocytes 0.3 0.1 - 1.5 x10 3/ul Absolute Metamyelocyte 0.0 0 - 0 x10 3/ul Nucl RBC Rel Cnt (Man) 1 /100 WBC Platelet Evaluation AGREE AGREE Comment:Slide review of plat elets correlates with instrument count. Anisocytosis 1+ 11/16/2015 6:40 PM AUGER SUPERVISOR 11/16/2015 6:48 PM AUGER SUPERVISOR Narrative [facility] HISTORICAL RESULTS - 11/16/2015 8:07 PM AUGER SUPERVISOR [facility] [facility] LAB BLOOD ORDERABLES Final Resul t Performing Organization Address [facility] de Phone Number [facility] HISTORICAL RESULTS * Troponin I (11/16/2015 6:40 PM AUGER SUPERVISOR) [facility] Troponin I < 0.300 0.000 - 0.300 ng/mL Comment: Reference using KIRA Chemiluminescence ? Negative: Repeat in 4-6 hours as indicated. 11/16/2015 6:40 PM AUGER SUPERVISOR 11/16/2015 6:48 PM AUGER SUPERVISOR [facility] LAB BLOOD ORDERABLES Final Resul t Performing Organization Address [facility] de Phone Number [facility] HISTORICAL RESULTS * Protime-INR (11/16/2015 6:40 PM AUGER SUPERVISOR) Pathologist [facility] PT 11.9 11.8 - 14.5 SECONDS Comment:New Reference Range in use at [facility] 10/12/2015 INR 0.89 0.01 - 5.99 Comment: Recommended Therapeutic range for Oral Anticoagulant Therapy No anti-coagulation therapy ? Normal Range: ?0.8-1.4 Anti-coagulation therapy ? Low intensity therapy ?2.0-3.0 ? High intensity therapy ?? 2.5-3.5 Critical Value ? Greater than or equal to 6.0 Patients should be monitored for serious bleeding. ?? 11/16/2015 6:40 PM AUGER SUPERVISOR 11/16/2015 6:48 PM AUGER SUPERVISOR [facility] LAB BLOOD ORDERABLES Final Resul t Performing Organization Address [facility]/ZIP Nh de Phone Number [facility] HISTORICAL RESULTS * aPTT (11/16/2015 6:40 PM AUGER SUPERVISOR) APTT 26 26 - 33 SECONDS Comment:New Reference Range in use at [facility] 10/12/2015 11/16/2015 6:40 PM AUGER SUPERVISOR 11/16/2015 6:48 PM AUGER SUPERVISOR [facility] LAB BLOOD ORDERABLES Final Resul t Performing Organization Address [facility] de Phone Number [facility] HISTORICAL RESULTS * (ABNORMAL) Comprehensive metabolic panel (11/16/2015 6:40 PM AUGER SUPERVISOR) Pathologist [facility] Sodium 135 135 - 145 mmol/L Potassium 3.8 3.3 - 5.1 mmol/L Chloride 94(L) 96 - 108 mmol/L Carbon Dioxide 24 22 - 32 mmol/L Anion Gap 17(H) 7 - 16 Glucose 121(H) 70 - 100 mg/dL BUN 11 6 - 20 mg/dL Creatinine 0.5 0.5 - 1.1 mg/dL Comment: NOTE: Estimated GFR (Cockroft-Gault) will NOT be calculated unless patient Height and Weight were entered. Also, Kidney Disease Stage (GFR) and Estimated GFR (Cockroft-Gault) will NOT be calculated if Creatinine result is <0.2. Kidney Disease Stage > 90 mL/MIN 11/16/2015 7:24 PM [email or web address] Application HISTORICAL RESULTS Comment: NOTE; ??The GFR is [...] or on dialysis @ Est GFR (Cockcroft-G) 151 ml/MIN 11/16/2015 7:24 PM [employer] [facility] [employer] HISTORICAL RESULTS Calcium 9.1 8.6 - 10.0 mg/dL 11/16/2015 7:24 PM [employer] [facility] [employer] HISTORICAL RESULTS Total Protein 6.9 6.4 - 8.3 g/dL 11/16/2015 7:24 PM [employer] [facility] [employer] HISTORICAL RESULTS Albumin 4.3 3.5 - 5.2 g/dL 11/16/2015 7:24 PM [employer] [facility] [employer] HISTORICAL RESULTS Globulin 2.6 2.3 - 3.5 gm/dL 11/16/2015 7:24 PM [facility] 5to1 HISTORICAL RESULTS Albumin/Globulin Ratio 1.7 1.1 - 1.8 11/16/2015 7:24 PM [employer] [facility] [employer] HISTORICAL RESULTS Total Bilirubin 0.2 0.0 - 1.2 mg/dL AST 16 0 - 32 U/L ALT 28 0 - 33 U/L Alkaline Phosphatase 93 35 - 104 U/L 11/16/2015 6:40 PM AUGER SUPERVISOR 11/16/2015 6:48 PM AUGER SUPERVISOR [employer] LAB BLOOD ORDERABLES Final Resul t Performing Organization Address [facility] de Phone Number [facility] HISTORICAL RESULTS * B-type natriuretic peptide (11/16/2015 6:40 PM AUGER SUPERVISOR) [facility] B-Natriuretic Peptide 15 0 - 100 pg/mL Comment: B Natriutetic Peptide METHOD: ??[employer] Centaur XP using ANTHONY. Decision threshold of 100 pg/mL has been demonstrated to provide the maximal combination of sensitivity, specificity, and predictive value for the diagnosis of congestive heart failure (CHF). ??Virtually all patients with no evidence of CHF have BNP values <100 pg/mL. ?? NOTE: ??Nesiritide (Natrecor) interferes with the BNP assay. BNP result will be invalid if drawn within 2 hours of bolus or infusion of nesiritide. 11/16/2015 6:40 PM AUGER SUPERVISOR 11/16/2015 6:48 PM AUGER SUPERVISOR [facility] LAB BLOOD ORDERABLES Final Resul t Performing Organization Address [facility] Co de Phone Number [facility] HISTORICAL RESULTS * (ABNORMAL) Blood gas with lactate (11/16/2015 5:16 PM AUGER SUPERVISOR) [facility] Specimen Type ARTERIAL Puncture Site RR Patient Temperature 37 C 11/15 5:25 PM [facility] HISTORICAL RESULTS pH 7.464(H) 7.350 - 7.450 pCO2 32.3(L) 34.0 - 45.0 mmHg pO2 72.8(L) 84.0 - 92.0 mmHg HCO3 22.9 22.0 - 26.0 mmol/L Total CO2 23.9(L) 26.0 - 28.0 mmol/L Base Excess 0.0 -2.0 - 2.0 mmol/L Hemoglobin 10.6(L) 12.0 - 16.0 g/dL O2 Saturation 89.4(L) >=95.0 % ABG Carboxyhemoglobin 4.6(H) <=3.0 % 06/2016 5:25 PM [facility] HISTORICAL RESULTS ABG Methemoglobin 1.7(H) 0.4 - 1.5 % ABG O2 Content 13.4(L) 17.6 - 24.3 Vol % Lactate (BLOOD GAS) 2.2(HH) 0.4 - 0.8 mEq/L A-a O2 Difference 34.2(H) <=10.0 016 5:25 PM [facility] HISTORICAL RESULTS a/A Ratio 0.7(L) >=0.8 FiO2 21.0 % BG Specimen Comment ICU-08 11/15 5:25 PM [facility] HISTORICAL RESULTS Office Machine Service Supervisor ID TERE 11/16/2015 5:25 PM AUGER SUPERVISOR [facility] HISTORICAL RESULTS 11/16/2015 5:16 PM AUGER SUPERVISOR 11/16/2015 5:22 PM AUGER SUPERVISOR Narrative [facility] HISTORICAL RESULTS - 11/16/2015 5:25 PM AUGER SUPERVISOR Conditions Room Air ?? Source Arterial us Rupinder WaldronRaya Jas LAB BLOOD ORDERABLES Final Resul t [facility] HISTORICAL RESULTS * XR Chest Pa Lateral 2 Views (11/16/2015 12:00 AM AUGER SUPERVISOR) Anatomical Region Laterality Modality Body, Chest N/A Radiographic Sheyla ging 11/16/2015 Impressions 11/16/2015 6:28 PM AUGER SUPERVISOR ??Bibasilar atelectasis versus pneumonia. THIS IS AN ELECTRONICALLY VERIFIED REPORT 11/16/2015 6:25 PM: ??Bradly Werner M.D. Bradly Werner M.D. NH:angélica 06:25 PM 06:25 PM BM [EOD] Narrative 11/16/2015 6:28 PM AUGER SUPERVISOR EXAMINATION: ??PA and lateral chest radiographs HISTORY: ??Shortness of breath since Friday, history of CVA, former smoker. FINDINGS: ??Comparison made with chest radiographs 10/23/2015. ??Lungs are mildly hypoexpanded with mild bibasilar opacities. ??No pleural effusion or pneumothorax. ??Right chest port catheter terminates in SVC. ??Heart size within normal limits. Procedure Note Provider, MD Fermin - 01/23/2021 EXAMINATION: PA and lateral chest radiographs HISTORY: Shortness of breath since Friday, history of CVA, formersmoker. FINDINGS: Comparison made with chest radiographs 10/23/2015. Lungs aremildly hypoexpanded with mild bibasilar opacities. No pleural effusion or pneumothorax. Right chest port catheter terminates in SVC. Heart sizewithin normal limits. IMPRESSION: Bibasilar atelectasis versus pneumonia. THIS IS AN ELECTRONICALLY VERIFIED REPORT 11/16/2015 6:25 PM: Bradly Werner M.D. Brdaly Werner M.D. NH:angélica 06:25 PM 06:25 PM BM [EOD] us Rupinder Mark IMG XR PROCEDURES Final Result * CT Chest W Contrast (11/16/2015 12:00 AM AUGER SUPERVISOR) Anatomical Region Laterality Modality Body N/A Computed Tomogra phy 11/16/2015 Impressions 11/16/2015 8:33 PM AUGER SUPERVISOR ?? 1. ??No pulmonary embolism. 2. ??Bibasilar atelectasis. 3. ??Watmbriy-ry-cswzxh emphysema. 4. ??Possible 1.5 cm mass versus focal atelectasis in base of right lower lobe. Follow-up chest CT is recommended in 3 months. 5. ??Mildly enlarged lower right jugulodigastric lymph node. ??No thoracic lymphadenopathy. 6. ??Fatty liver. 7. ??Hiatal hernia. 8. ??Possible 2.4 cm mass in upper outer right breast versus asymmetric parenchyma. ??Recommend correlation with any prior mammograms. ??If no prior mammograms are available, follow-up diagnostic mammography with possible ultrasound is recommended. THIS IS AN ELECTRONICALLY VERIFIED REPORT 11/16/2015 8:30 PM: ??Bradly Werner M.D. Bradly Werner M.D. NH:angélica 08:30 PM 08:30 PM [facility] [EOD] Narrative 11/16/2015 8:33 PM AUGER SUPERVISOR EXAMINATION: ??CT CHEST with contrast HISTORY: ??Shortness of breath and nonproductive cough for 3 days. ??History of Hodgkin lymphoma. TECHNIQUE: ??CT of the chest was performed according to the pulmonary embolus protocol. ??80 mL Omnipaque 350 was instilled intravenously into the right antecubital IV without complications. ?? FINDINGS: ??No comparison. ??Possible 2.4 cm mass in upper outer right breast versus asymmetric parenchyma (coronal image 26). ??There is enlarged lower right jugulodigastric lymph node measuring 1.6 x 1.1 cm (axial image 12). No thoracic lymphadenopathy. ??There is no pulmonary arterial filling defect. ??No acute abnormality of thoracic aorta. ??Heart size is within normal limits. ??No pericardial effusion. ??Moderate hiatal hernia. ??Liver is diffusely hypodense. ?? Visualized upper abdomen is otherwise unremarkable. ??Bones are diffusely demineralized. ??No acute or suspicious bony abnormality. There is svcxmnyg-qj-ivvwzj emphysema. ??Questionable 1.5 cm mass versus focal atelectasis in base of right lower lobe (axial image 87, coronal image 74). ?? There are moderate atelectatic changes in both lung bases. No pleural effusion or pneumothorax. Procedure Note Provider, MD Fermin - 01/23/2021 EXAMINATION: CT CHEST with contrast HISTORY: Shortness of breath and nonproductive cough for 3 days. Historyof Hodgkin lymphoma. TECHNIQUE: CT of the chest was performed according to the pulmonaryembolus protocol. 80 mL Omnipaque 350 was instilled intravenously into the right antecubital IV without complications. FINDINGS: No comparison. Possible 2.4 cm mass in upper outer rightbreast versus asymmetric parenchyma (coronal image 26). There is enlarged lower right jugulodigastric lymph node measuring 1.6 x 1.1 cm (axial image 12).No thoracic lymphadenopathy. There is no pulmonary arterial filling defect.No acute abnormality of thoracic aorta. Heart size is within normal limits.No pericardial effusion. Moderate hiatal hernia. Liver is diffuselyhypodense. Visualized upper abdomen is otherwise unremarkable. Bones are diffusely demineralized. No acute or suspicious bony abnormality. There is fgveldxg-hv-fgnxao emphysema. Questionable 1.5 cm mass versusfocal atelectasis in base of right lower lobe (axial image 87, coronal image74). There are moderate atelectatic changes in both lung bases. No pleuraleffusion or pneumothorax. IMPRESSION: 1. No pulmonary embolism. 2. Bibasilar atelectasis. 3. Qzljnwkz-dq-ihkumi emphysema. 4. Possible 1.5 cm mass versus focal atelectasis in base of right lowerlobe. Follow-up chest CT is recommended in 3 months. 5. Mildly enlarged lower right jugulodigastric lymph node. No thoracic lymphadenopathy. 6. Fatty liver. 7. Hiatal hernia. 8. Possible 2.4 cm mass in upper outer right breast versus asymmetric parenchyma. Recommend correlation with any prior mammograms. If no prior mammograms are available, follow-up diagnostic mammography with possible ultrasound is recommended. THIS IS AN ELECTRONICALLY VERIFIED REPORT 11/16/2015 8:30 PM: Bradly Werner M.D. Bradly Werner M.D. NH:angélica 08:30 PM 08:30 PM BM [EOD] Rupinder Mark [facility] PROCEDURES Final Result documented in this encounter Visit Diagnoses Diagnosis Chronic obstructive pulmonary disease with acute exacerbation (HCC) Non-Hodgkin lymphoma (HCC) Agranulocytosis secondary to cancer chemotherapy (CODE) (HCC) Hemiplegia and hemiparesis following unspecified cerebrovascular disease affecting left non-dominant side (HCC) Hyperlipidemia Other and unspecified hyperlipidemia Uncomplicated asthma Gastro-esophageal reflux disease without esophagitis Diaphragmatic hernia without obstruction or gangrene Diaphragmatic hernia without mention of obstruction or gangrene Osteoarthritis Osteoarthrosis, unspecified whether generalized or localized, unspecified site Cigarette nicotine dependence, uncomplicated Adverse effect of antineoplastic and immunosuppressive drugs, initial encounter Chronic obstructive pulmonary disease with acute lower respiratory infection (HCC) documented in this encounter
--- OUTSIDE RECORDS SUMMARY | 2024-09-04 18:27 | XMS_ITS | Encounter Summary ---
Author Organization [facility] Address [address] [place] [address] Care Team Providers Care Editor Greeting Card Name Role Phone Biju Whyte MD Primary Care Provider [phone] Reason for Referral * Diagnostic Imaging (Routine) - Closed Specialty Diagnoses / Procedures Referred By Dione t Referred To Contact Diagnoses Cough Procedures XR Chest Pa Lateral 2 Views April Worthy MD Phone: tel: fax: [address] [phone] Referral ID Status Reason Start Date Expiration Date Visits Re quested Visits Authorized [id number] Closed 09/15/2019 03/26/2021 1 1 KLE STRAP SEWER Reason for Visit * Reason Comments Follow-up Encounter Details Date Type Department Care Team ([facility] Contact Info) Description 09/15/2019 1:45 PM KNUCKLE STRAP SEWER Office Visit [facility] Pulmonology [address] [place] [phone] April Worthy MD [address] [place] [id number] Pulmonary nodule (Primary Dx); Nocturnal hypoxia; Simple chronic bronchitis (CMS/HCC); Cough; Smoking Social History Tobacco Use Types Packs/Day Years Used Date Smoking Tobacco: Every Day Cigarettes 1 30 Smokeless Tobacco: Never Comments:03/09/19: Used to smo ke up to 2ppd Comments Unknown Sex and Gender Information Value Date Recorded Sex Assigned at Not on file Legal Sex Female 1:00 AM KNUCKLE STRAP SEWER Gender Identity Not on file Sexual Orientation Not on file documented as of this encounter Last Filed Vital Signs Vital Sign Reading Time Taken Comments Blood Pressure 100/68 09/15/2019 1:37 PM KNUCKLE STRAP SEWER Pulse 95 09/15/2019 1:37 PM KNUCKLE STRAP SEWER Temperature - - Respiratory Rate 18 09/15/2019 1:37 PM KNUCKLE STRAP SEWER Oxygen Saturation 92% 09/15/2019 1:37 PM KNUCKLE STRAP SEWER Inhaled Oxygen Concentration - - Weight 91.2 kg (201 lb) 09/15/2019 1:37 PM KNUCKLE STRAP SEWER Height 172.7 cm (5' 8 ) 09/15/2019 1:37 PM KNUCKLE STRAP SEWER Body Mass Index 30.56 09/15/2019 1:37 PM KNUCKLE STRAP SEWER documented in this encounter Ordered Prescriptions Prescription Sig Dispense Quantity Refills Last Filled Start Date End Date ipratropium-albute rol (DUO-NEB) 0.5-2.5 mg/3 mL nebulizer solutionIndication s:Chronic Obstructive Pulmonary Disease with Bronchospasms Take 3 mL by nebulization 4 (four) times a day as needed for wheezing or shortness of breath 270 mL 3 09/15/2019 09/17/19 20 predniSONE (DELTASONE) 20 mg tablet Take 2 tablets (40 mg) by mouth daily for 7 days 14 tablet 09/15/2019 09/22/19 20 levoFLOXacin (LEVAQUIN) 750 mg tablet Take 1 tablet (750 mg total) by mouth daily for 5 days 5 tablet 09/15/2019 09/20/19 20 documented in this encounter Progress Notes * April Worthy MD - 09/15/2019 1:45 PM CST Progress Note Patient: Nayeli Harrington ( - 1965) is a 54 y.o. female. Visit Date: 09/15/2019 I am seeing this patient in consultation, [...] albuterol inhaler. [facility] [...] pneumonic consolidation. The airway is widely patent. Patient complains of cough, intermittent wheezing and sputum production. She denies any fever, chills, night sweats or weight loss. She is still smoking. Past Medical History: Past [...] (PROVENTIL HFA,VENTOLIN HFA,PROAIR HFA) 90 mcg/actuation inhaler USE 2 PUFFS BY MOUTH EVERY 6 HOURS NEEDED 54 g 0 ??? alendronate (FOSAMAX) 70 mg tablet TAKE 1 TABLET BY MOUTH EVERY WEEK 0 ??? aspirin 81 mg enteric coated tablet daily ??? atorvastatin (LIPITOR) 80 mg tablet TK 1 T PO QHS 0 ??? docosahexanoic acid/epa (FISH OIL ORAL) Take by mouth ??? empagliflozin (Jardiance) 25 mg tablet Jardiance 25 mg tablet TK 1 T PO QD IN THE MORNING ??? fenofibrate (TRIGLIDE) 160 mg tablet ??? fluticasone propionate (FLONASE) 50 mcg/actuation nasal spray fluticasone propionate 50 mcg/actuation nasal spray,suspension ??? levothyroxine (SYNTHROID) 100 mcg tablet daily ??? metFORMIN XR (GLUCOPHAGE XR) 500 mg 24 hr tablet ??? pantoprazole DR (PROTONIX) 40 mg EC tablet pantoprazole 40 mg tablet,delayed release TK 1 T PO QD ??? SYMBICORT 160-4.5 mcg/actuation inhaler INHALE 2 PUFFS BY MOUTH TWICE DAILY. RINSE MOUTH AFTER USE 1 Inhaler 3 ??? buPROPion (WELLBUTRIN) 100 mg tablet Take 1 tablet (100 mg total) by mouth 2 (two) times a day 60 tablet 3 ??? ibuprofen (ADVIL,MOTRIN) 400 mg tablet ??? ipratropium-albuterol (DUO-NEB) 0.5-2.5 mg/3 mL nebulizer solution Take 3 mL by nebulization every 6 (six) hours 1080 mL 3 ??? levoFLOXacin (LEVAQUIN) 750 mg tablet Take 1 tablet (750 mg total) by mouth daily for 5 days 5 tablet 0 ??? omeprazole (PriLOSEC) 20 mg capsule TK ONE C PO QD PRN 0 ??? oxybutynin XL (DITROPAN-XL) 10 mg 24 hr tablet TK 1 T PO QD 0 ??? predniSONE (DELTASONE) 20 mg tablet Take 2 tablets (40 mg) by mouth daily for 7 days 14 tablet 0 No current facility-administered medications for this [...] on phone: None Gets together: None Attends sikhism service: None Active member of club or [...] for discharge and itching. Respiratory: Positive for cough, shortness of breath and wheezing. Negative for apnea, choking, chest tightness and stridor. Cardiovascular: Negative for chest pain, [...] confusion and sleep disturbance. Physical Exam: Vitals: 09/15/19 1337 BP: 100/68 Pulse: 95 Resp: 18 SpO2: 92% Weight: 91.2 kg (201 lb) Height: 172.7 cm (5' 8 ) Physical Exam Constitutional: Appearance: She is well-developed. [...] Abdomen is soft. Tenderness: There is no tenderness. Musculoskeletal: Normal range of motion. General: [...] 04/23/2019 ALBUMIN 4.7 04/07/2019 AST 16 04/07/2019 ALKPHOS 103 04/07/2019 BILITOT 0.2 04/07/2019 PROT 7.8 04/07/2019 ANIONGAP 11 04/23/2019 Assessment and Plan: Diagnoses and all orders for this visit: Pulmonary nodule (Primary) Nocturnal hypoxia Assessment & Plan: Continue with 3 L of supplemental oxygen at night. Simple chronic bronchitis (CMS/HCC) Assessment & Plan: Continue with Symbicort and albuterol inhaler. Currently she is having exacerbation of COPD. I willobtain 2 with a chest x-ray and start her on levofloxacin and prednisone. She was advised to come to ER if her symptoms do not get better within next 48 hours. Cough - CBC with auto differential; Future - XR Chest Pa Lateral 2 Views; Future - Hemogram with manual differential Smoking Assessment & Plan: Patient continued to smoke. She was advised to quit smoking. She will need CT scan of the chest forlung cancer screening on yearly basis. Other orders - levoFLOXacin (LEVAQUIN) 750 mg tablet; Take 1 tablet (750 mg total) by mouth daily for 5 days - predniSONE (DELTASONE) 20 mg tablet; Take 2 tablets (40 mg) by mouth daily for 7 days Rendering Provider & Department: April Worthy MD KLE [employer]AP SEWER documented in this encounter Miscellaneous Notes * Assessment & Plan Note - April Worthy MD - 09/17/2019 5:25 PM KNUCKLE STRAP SEWER Associated Problem(s): Smoking Patient continued to smoke. She was advised to quit smoking. She will need CT scan of the chest forlung cancer screening on yearly basis. KLE STRAP SEWER * Assessment & Plan Note - April Worthy MD - 09/17/2019 5:25 PM KNUCKLE STRAP SEWER Associated Problem(s): COPD (chronic obstructive pulmonary disease) (HCC) Continue with Symbicort and albuterol inhaler. Currently she is having exacerbation of COPD. I willobtain 2 with a chest x-ray and start her on levofloxacin and prednisone. She was advised to come to ER if her symptoms do not get better within next 48 hours. KLE STRAP SEWER * Assessment & Plan Note - April Worthy MD - 09/17/2019 5:24 PM KNUCKLE STRAP SEWER Associated Problem(s): Nocturnal hypoxia Continue with 3 L of supplemental oxygen at night. KLE STRAP SEWER documented in this encounter Plan of Treatment Not on file documented as of this encounter Procedures Procedure Name Priority Date/Time Associated Diagnosis Comments HEMOGRAM WITH MANUAL DIFFERENTIAL Routine 09/15/2019 2:11 PM KNUCKLE STRAP SEWER Cough CBC WITH AUTO DIFFERENTIAL Routine 09/15/2019 2:11 PM KNUCKLE STRAP SEWER Cough XR CHEST PA LATERAL 2 VIEWS Schedule Routine, Read Routine (OP Routine) 09/15/2019 2:06 PM KNUCKLE STRAP SEWER Cough documented in this encounter Results * (ABNORMAL) Hemogram with manual differential (09/15/2019 2:11 PM KNUCKLE STRAP SEWER) WBC 8.5 3.8 - 9.9 X10 3/ul [facility] RBC 4.94 3.90 - 5.20 x10 6/ul [facility] Hemoglobin 13.9 11.9 - 15.5 g/dL [facility] Hct 43.5 35.6 - 45.5 % [facility] MCV 88.1 81.3 - 96.4 fl [facility] MCH 28.1 27.1 - 33.3 pg [facility] MCHC 32.0(L) 32.3 - 35.7 g/dl [facility] RDW 14.7 11.1 - 14.9 % [facility] Plt Count 339 150 - 400 x10 3/ul [facility] MPV 8.7(L) 9.1 - 12.3 fl [facility] MANUAL DIFF MANUAL DIFF - [facility] Neutrophils % (Manual) 78 % [facility] Lymphocytes % (Manual) 11 % [facility] Atypical Lymphs % 4 0 - 6 % [facility] Monocytes % (Manual) 5 % [facility] Eosinophils % (Manual) 2 % [facility] ABSOLUTE COUNTS ABSOLUTE COUNTS - [facility] Abs Neuts cells/mm3 6,630 /ul [facility] Absolute Neutrophils 6.6(H) 1.7 - 6.5 x10 3/ul [facility] Absolute Lymphocytes 0.9 0.8 - 3.3 x10 3/ul [facility] ATYPICAL LYMPH ABS# 0.3 0 - 0.3 x10 3/ul [facility] Absolute Monocytes 0.4 0.2 - 0.8 x10 3/ul [facility] Absolute Eosinophils 0.2 0.0 - 0.5 x10 3/ul [facility] Platelet Evaluation AGREE AGREE [facility] Comment: Slide review of platelets correlates with instrument count. RBC Morphology NORMAL NORMAL [facility] 09/15/2019 2:11 PM KNUCKLE STRAP SEWER 09/15/2019 2:13 PM KNUCKLE STRAP SEWER Narrative Resulting Agency Comment CLI April Worthy MD LAB BLOOD ORDERABLES F inal Result [facility] [address] [place] [address], [facility] [phone] * (ABNORMAL) CBC with auto differential (09/15/2019 2:11 PM KNUCKLE STRAP SEWER) WBC 8.5 3.8 - 9.9 X10 3/ul [facility] RBC 4.94 3.90 - 5.20 x10 6/ul [facility] Hemoglobin 13.9 11.9 - 15.5 g/dL [facility] Hct 43.5 35.6 - 45.5 % [facility] MCV 88.1 81.3 - 96.4 fl [facility] MCH 28.1 27.1 - 33.3 pg [facility] MCHC 32.0(L) 32.3 - 35.7 g/dl [facility] RDW 14.7 11.1 - 14.9 % [facility] Plt Count 339 150 - 400 x10 3/ul [facility] MPV 8.7(L) 9.1 - 12.3 fl [facility] Neut % 66.2 % [facility] Immature Gran % 0.4 % [facility] Lymph % 17.6 % [facility] [place] % 9.8 % [facility] Eos % 5.1 % [facility] - [employer] AUTO BASO % 0.9 % [facility] NEUTROPHIL ABS # 5.6 1.7 - 6.5 x10 3/ul [facility] Immature Gran # 0.0 0.0 - 0.1 x10 3/ul [facility] Absolute Lymphs (auto) 1.5 0.8 - 3.3 x10 3/ul [facility] Absolute Monos (auto) 0.8 0.2 - 0.8 x10 3/ul [facility] Absolute Eos (auto) 0.4 0.0 - 0.5 x10 3/ul [facility] BASOPHIL ABS # 0.1 0.0 - 0.1 x10 3/ul [facility] Nucleat RBC Rel Count 0.0 #/100WBC [facility] NRBC abs 0.00 0.00 - 0.01 x10 3/ul [facility] Absolute Neutrophils 5,600 200 - 8,000 /ul [facility] Blood specimen (specimen) 09/15/2019 2:11 PM KNUCKLE STRAP SEWER 09/15/2019 2:13 PM KNUCKLE STRAP SEWER Narrative Resulting Agency Comment CLI us April Worthy MD LAB BLOOD ORDERABLES F inal Result Performing Organization Address City/State/[facility] Co de Phone Number [address] [phone] * XR Chest Pa Lateral 2 Views (09/15/2019 2:06 PM KNUCKLE STRAP SEWER) Anatomical Region Laterality Modality Body, Chest N/A Radiographic Sheyla ging 09/16/2019 2:24 PM KNUCKLE STRAP SEWER Narrative 09/16/2019 2:26 PM KNUCKLE STRAP SEWER Patient Name: NAYELI HARRINGTON ?Ordering Dr: April Worthy MD ?? D.O.B: 1965 ? Exam Date: 09/15/19 ?? 1406 ?? Age: 54 ?Sex: Female ? MR#: [id number] ?? Loc: ? RADIOLOGY REPORT ?? Order #[id number] ?? Radiology ? Chest 2 Views ? Signed ? EXAM DESCRIPTION: ??Chest 2 Views ? REASON FOR STUDY: ??PT STATES COUGH SINCE 1-6-20 ? TECHNIQUE: ??Frontal and lateral radiographic views of the chest acquired. ? COMPARISON: ??Most recently 11/21/2015. ??CT chest 12/11/2018. ? FINDINGS: ? LUNGS/PLEURA: Hyperinflation. ??Stable scarring at the right lung base. ??No ?? developing consolidation, pleural effusion or evidence of a pneumothorax. ? HEART/MEDIASTINUM: Normal cardiomediastinal silhouette. ? HARDWARE/LINES/TUBES: None. ? BONES: No acute findings. ? OTHER: No other significant finding. ? IMPRESSION: ? 1. ??Hyperinflation with stable scarring at the right lung base. ??No acute ?? abnormality. ? THIS IS AN ELECTRONICALLY VERIFIED FINAL REPORT ?? 09/16/2019 2:26 PM - Electronically signed by Lavelle Bobby D.O. ?? Lavelle Bobby D.O. ? : ?? D: ??09/16/2019 2:26 PM ?? T: ??09/16/2019 2:26 PM ? Report ID: [id number] ?? Reading Location: ??[id number] ? REPORT ELECTRONICALLY SIGNED IN OTHER VENDOR SYSTEM ?? Resulting Agency Comment O Procedure Note Lavelle Bobby DO - 09/16/2019 Patient Name: NAYELI HARRINGTON Dr: April Worthy MD D.O.B: 1965 Exam Date: 09/15/19 1406 Age: 54 Sex: Female MR#: [id number] Loc: RADIOLOGY REPORT Order #[id number] Radiology Chest 2 Views Signed EXAM DESCRIPTION: Chest 2 Views REASON FOR STUDY: PT STATES COUGH SINCE 09-13-19 TECHNIQUE: Frontal and lateral radiographic views of the chest acquired. COMPARISON: Most recently 11/21/2015. CT chest 12/11/2018. FINDINGS: LUNGS/PLEURA: Hyperinflation. Stable scarring at the right lung base.No developing consolidation, pleural effusion or evidence of a pneumothorax. HEART/MEDIASTINUM: Normal cardiomediastinal silhouette. HARDWARE/LINES/TUBES: None. BONES: No acute findings. OTHER: No other significant finding. IMPRESSION: 1. Hyperinflation with stable scarring at the right lung base. No acute abnormality. THIS IS AN ELECTRONICALLY VERIFIED FINAL REPORT 09/16/2019 2:26 PM - Electronically signed by Lavelle Bobby D.O. : Report ID: [id number] Reading Location: [place] [address] REPORT ELECTRONICALLY SIGNED IN OTHER VENDOR SYSTEM April Worthy MD IMG XR PROCEDURES Karyn l Result documented in this encounter Visit Diagnoses Diagnosis Pulmonary nodule- Primary Other diseases of lung, not elsewhere classified Nocturnal hypoxia Simple chronic bronchitis (HCC) Simple chronic bronchitis Cough Smoking Tobacco use disorder documented in this encounter Discontinued Medications Medication Sig Discontinue Reason Start Date End Da te ipratropium (ATROVENT) 0.02 % nebulizer solution Alternate therapy 11/22/2015 09/15/2019 documented as of this encounter Historical Medications * This list may reflect changes made after this encounter. empagliflozin (Jardiance) 25 mg tablet Jardiance 25 mg tablet TK 1 T PO QD IN THE MORNING aspirin 81 mg enteric coated tablet daily docosahexanoic acid/epa (FISH OIL ORAL) Take by mouth 1 added in this encounter Care Teams Editor Greeting Card Relationship Specialty Start Date End Date Biju Whyte MD PCP - General Emergency Medicine 12/03/18 documented as of this encounter
--- OUTSIDE RECORDS SUMMARY | 2024-09-04 18:27 | XMS_ITS | Encounter Summary ---
Author Organization [facility] Healthcare Address [address] [place] [address] Care Team Providers Care Trench Digging Machine Operator Name Role Phone Biju Whyte MD Primary Care Provider [phone] Encounter Details Date Type Department Care Team ([facility] st Contact Info) Description 12/11/2018 7:53 AM CDT - 12/11/2018 9:14 AM CDT Hospital Encounter [facility] INTERIM April Worthy MD [address] [place] [id number] Social History Tobacco Use Types Packs/Day Years Used Date Smoking Tobacco: Never Assessed Comments Unknown Sex and Gender Information Value Date Recorded Sex Assigned at Not on file Legal Sex Female 1:00 AM SELF RISING FLOUR MIXER Gender Identity Not on file Sexual Orientation Not on file documented as of this encounter Medications at Time of Discharge ibuprofen (ADVIL,MOTRIN) 400 mg tablet 11/22/[address] (PROTONIX) 40 mg EC tablet pantoprazole 40 mg tablet,delayed release TK 1 T PO QD 12/05/2015 albuterol HFA (VENTOLIN HFA) 90 mcg/actuation inhaler Inhale 2 puffs every 6 (six) hours as needed 12/03/2018 9 alendronate (FOSAMAX) 70 mg tablet TAKE 1 TABLET BY MOUTH EVERY WEEK 0 12/04/2018 1 atorvastatin (LIPITOR) 80 mg tablet TK 1 T PO QHS 0 12/04/2018 0 ipratropium (ATROVENT) 0.02 % nebulizer solution 11/22/2015 0 omeprazole (PriLOSEC) 20 mg capsule TK ONE C PO QD PRN 0 12/04/2018 0 oxybutynin XL (DITROPAN-XL) 10 mg 24 hr tablet TK 1 T PO QD 0 12/04/2018 02 0 documented as of this encounter Plan of Treatment Not on file documented as of this encounter Procedures Procedure Name Priority Date/Time Associated Diagnosis Comments CT CHEST WO CONTRAST 12/11/2018 7:55 AM CDT documented in this encounter Results * CT Chest WO Contrast (12/11/2018 7:55 AM CDT) Anatomical Region Laterality Modality Body N/A Computed Tomogra phy 12/11/2018 10:1 7 AM CDT Narrative 12/11/2018 10:27 AM CDT Patient Name: NAYELI HARRINGTON ?Ordering Dr: April Worthy MD ?? D.O.B: 1965 ? Exam Date: 12/11/18 ?? 0755 ?? Age: 53 ?Sex: Female ? MR#: [id number] ?? Loc: ? RADIOLOGY REPORT ?? Order #[id number] ?? CT Scan ? CT Chest WO IV Contrast ? Signed ? EXAM DESCRIPTION: ??CT Chest WO IV Contrast ? REASON FOR STUDY: ??Lung nodules. ??Follow-up. ??History of Hodgkin's lymphoma ?? since 2015. ? TECHNIQUE: ??CT scan of the chest performed without intravenous contrast using ?? helical scanning technique. Reconstructed coronal and sagittal MPR images ?? reviewed. ??All images stored on PACS. ??Automated exposure control was used as ?? a dose optimization technique for this examination. ? COMPARISON: ??CT of the chest dated 11/16/2015. ? FINDINGS: ? The sensitivity for detection of solid visceral lesions is diminished without ?? the use of intravenous contrast. ? LUNGS: There is severe centrilobular emphysema in the mid to upper lungs. ??A ?? small component of paraseptal emphysema is also present bilaterally. ??There is ?? a tiny partially calcified nodule in the periphery of the left upper lobe on ?? image 39, most consistent with a granuloma. ??Increased area of bandlike ?? scarring along the right middle lobe, abutting the diaphragm. ??The focal area ?? described as a possible 1.5 cm mass in the base of the right lower lobe ?? corresponds to either a small focal diaphragmatic defect or a focal area of ?? subpleural fat deposition. ??This finding is benign, unchanged, and requires no ?? additional follow-up or workup. ??There are no suspicious lung nodules. ??No ?? pneumonic consolidation. ??The airway is widely patent. ? PLEURA: No effusion. No pneumothorax. ? MEDIASTINUM/TEA: No identified masses or abnormal nodes. ? HEART: The heart size is normal. ??Atherosclerotic calcifications are present ?? in the coronary arteries. ??No pericardial thickening or effusion. ? VASCULATURE: The thoracic aorta is minimally atherosclerotic, and normal in ?? course and caliber. ??Pulmonary arteries are mildly enlarged. ? AXILLA: No adenopathy. ? CHEST WALL: No masses. ??No subcutaneous air. ? HARDWARE/LINES/TUBES: None. ? UPPER ABDOMEN: The liver is steatotic. ??Imaged portions of the pancreas, ?? spleen, adrenal glands, and kidneys are unremarkable. ??Moderate to large ?? hiatal hernia with sliding and paraesophageal components is unchanged. ? MUSCULOSKELETAL: Examination of bone windows demonstrates no suspicious lytic ?? or blastic lesions. ? OTHER: No other significant abnormality. ? IMPRESSION: ? 1.There are no suspicious lung nodules. ? 2.The focal area described as a possible 1.5 cm mass at the base of the right ?? lower lobe corresponds to either a small focal diaphragmatic defect, or a ?? focal area of subpleural fat deposition. ??This is a benign finding, requiring ?? no additional follow-up or workup. ? 3.Severe centrilobular emphysema in the mid to upper lungs. ? 4.Hepatic steatosis. ? 5.Other findings as above. ? THIS IS AN ELECTRONICALLY VERIFIED FINAL REPORT ?? 12/11/2018 10:27 AM - Electronically signed by Diego Baron M.D. ?? Diego Baron M.D. ? RL: RL ?? D: ??12/11/2018 10:27 AM ?? T: ??12/11/2018 10:27 AM ? Report ID: [id number] ?? Reading Location: ??[id number] ? REPORT ELECTRONICALLY SIGNED IN OTHER VENDOR SYSTEM ?? Resulting Agency Comment O Procedure Note Diego Baron MD - 12/11/2018 Patient Name: TOM HARRINGTONDANNA Byrd Dr: April Worthy MD D.O.B: 1965 Exam Date: 12/11/18 0755 Age: 53 Sex: Female MR#: [id number] Loc: RADIOLOGY REPORT Order #[id number] CT Scan CT Chest WO IV Contrast Signed EXAM DESCRIPTION: CT Chest WO IV Contrast REASON FOR STUDY: Lung nodules. Follow-up. History of Hodgkin'slymphoma since 2016. TECHNIQUE: CT scan of the chest performed without intravenous contrastusing helical scanning technique. Reconstructed coronal and sagittal MPR images reviewed. All images stored on PACS. Automated exposure control wasused as a dose optimization technique for this examination. COMPARISON: CT of the chest dated 11/16/2015. FINDINGS: The sensitivity for detection of solid visceral lesions is diminishedwithout the use of intravenous contrast. LUNGS: There is severe centrilobular emphysema in the mid to upper lungs.A small component of paraseptal emphysema is also present bilaterally.There is a tiny partially calcified nodule in the periphery of the left upper lobeon image 39, most consistent with a granuloma. Increased area of bandlike scarring along the right middle lobe, abutting the diaphragm. The focalarea described as a possible 1.5 cm mass in the base of the right lower lobe corresponds to either a small focal diaphragmatic defect or a focal areaof subpleural fat deposition. This finding is benign, unchanged, andrequires no additional follow-up or workup. There are no suspicious lung nodules.No pneumonic consolidation. The airway is widely patent. PLEURA: No effusion. No pneumothorax. MEDIASTINUM/TEA: No identified masses or abnormal nodes. HEART: The heart size is normal. Atherosclerotic calcifications arepresent in the coronary arteries. No pericardial thickening or effusion. VASCULATURE: The thoracic aorta is minimally atherosclerotic, and normalin course and caliber. Pulmonary arteries are mildly enlarged. AXILLA: No adenopathy. CHEST WALL: No masses. No subcutaneous air. HARDWARE/LINES/TUBES: None. UPPER ABDOMEN: The liver is steatotic. Imaged portions of the pancreas, spleen, adrenal glands, and kidneys are unremarkable. Moderate to large hiatal hernia with sliding and paraesophageal components is unchanged. MUSCULOSKELETAL: Examination of bone windows demonstrates no suspiciouslytic or blastic lesions. OTHER: No other significant abnormality. IMPRESSION: 1.There are no suspicious lung nodules. 2.The focal area described as a possible 1.5 cm mass at the base of theright lower lobe corresponds to either a small focal diaphragmatic defect, or a focal area of subpleural fat deposition. This is a benign finding,requiring no additional follow-up or workup. 3.Severe centrilobular emphysema in the mid to upper lungs. 4.Hepatic steatosis. 5.Other findings as above. THIS IS AN ELECTRONICALLY VERIFIED FINAL REPORT 12/11/2018 10:27 AM - Electronically signed by Diego Baron M.D. RL: DEREK Report ID: [id number] Reading Location: [place] [id number] REPORT ELECTRONICALLY SIGNED IN OTHER VENDOR SYSTEM April Worthy MD IMG CT PROCEDURES Karyn l Result documented in this encounter Visit Diagnoses Not on filedocumented in this encounter Care Teams Trench Digging Machine Operator Relationship Specialty Start Date End Date Biju Whyte MD PCP - General Emergency Medicine 12/03/18 documented as of this encounter
--- OUTSIDE RECORDS SUMMARY | 2024-09-04 18:27 | XMS_ITS | Encounter Summary ---
Author Organization [facility] Healthcare Address [address] [place] [address] Care Team Providers Care Golf Teacher Name Role Phone Biju Whyte MD Primary Care Provider [phone] Encounter Details Date Type Department Care Team ([facility] st Contact Info) Description 09/15/2019 2:02 PM INVESTIGATIVE REPORTER Hospital Encounter [facility] OP INTERIM April Worthy MD [facility] [address] Social History Tobacco Use Types Packs/Day Years Used Date Smoking Tobacco: Every Day Cigarettes 1 30 Smokeless Tobacco: Never Comments:03/09/19: Used to smo ke up to 2ppd Comments Unknown Sex and Gender Information Value Date Recorded Sex Assigned at Not on file Legal Sex Female 1:00 AM INVESTIGATIVE REPORTER Gender Identity Not on file Sexual Orientation Not on file documented as of this encounter Medications at Time of Discharge aspirin 81 mg enteric coated tablet daily empagliflozin (Jardiance) 25 mg tablet Jardiance 25 mg tablet TK 1 T PO QD IN THE MORNING ergocalciferol (VITAMIN D) 50,000 unit capsule TK 1 C PO Q WK IN THE MORNING 08/20/2019 fenofibrate (TRIGLIDE) 160 mg tablet 01/11/2019 ibuprofen (ADVIL,MOTRIN) 400 mg tablet 11/22/[address] (PROTONIX) 40 mg EC tablet pantoprazole 40 mg tablet,delayed release TK 1 T PO QD 12/05/2015 levoFLOXacin (LEVAQUIN) 750 mg tablet Take 1 tablet (750 mg total) by mouth daily for 5 days 5 tablet 09/15/2019 09/20/19 20 predniSONE (DELTASONE) 20 mg tablet Take 2 tablets (40 mg) by mouth daily for 7 days 14 tablet 09/15/2019 09/22/19 20 albuterol HFA (PROVENTIL HFA,VENTOLIN HFA,PROAIR HFA) 90 mcg/actuation inhaler USE 2 PUFFS BY MOUTH EVERY 6 HOURS NEEDED 54 g 08/24/2019 11/08/19 20 alendronate (FOSAMAX) 70 mg tablet TAKE 1 TABLET BY MOUTH EVERY WEEK 0 12/04/2018 09/28/19 21 atorvastatin (LIPITOR) 80 mg tablet TK 1 T PO QHS 0 12/04/2018 02/24/20 20 buPROPion (WELLBUTRIN) 100 mg tablet Take 1 tablet (100 mg total) by mouth 2 (two) times a day 60 tablet 3 03/09/2019 02/24/20 20 docosahexanoic acid/epa (FISH OIL ORAL) Take by mouth 09/28/19 21 fluticasone propionate (FLONASE) 50 mcg/actuation nasal spray fluticasone propionate 50 mcg/actuation nasal spray,suspension 09/28/19 21 ipratropium-albute rol (DUO-NEB) 0.5-2.5 mg/3 mL nebulizer solutionIndication s:Chronic Obstructive Pulmonary Disease with Bronchospasms Take 3 mL by nebulization 4 (four) times a day as needed for wheezing or shortness of breath 270 mL 3 09/15/2019 09/17/19 20 ipratropium-albute rol (DUO-NEB) 0.5-2.5 mg/3 mL nebulizer solution Take 3 mL by nebulization every 6 (six) hours 1080 mL 3 09/17/2019 09/23/19 20 levothyroxine (SYNTHROID) 100 mcg tablet daily 09/28/19 21 metFORMIN XR (GLUCOPHAGE XR) 500 mg 24 hr tablet 01/11/2019 09/28/19 21 omeprazole (PriLOSEC) 20 mg capsule TK ONE C PO QD PRN 0 12/04/2018 02/24/20 20 oxybutynin XL (DITROPAN-XL) 10 mg 24 hr tablet TK 1 T PO QD 0 12/04/2018 0 20 SYMBICORT 160-4.5 mcg/actuation inhaler INHALE 2 PUFFS BY MOUTH TWICE DAILY. RINSE MOUTH AFTER USE 1 Inhaler 3 08/24/2019 01/13/20 20 documented as of this encounter Plan of Treatment Not on file documented as of this encounter Visit Diagnoses Not on filedocumented in this encounter Care Teams Golf Teacher Relationship Specialty Start Date End Date Biju Whyte MD PCP - General Emergency Medicine 12/03/18 documented as of this encounter
--- OUTSIDE RECORDS SUMMARY | 2024-09-04 18:27 | XMS_ITS | Encounter Summary ---
Author Organization [facility] Healthcare Address [address] [place] [address] Care Team Providers Care Forming Machine Tender Name Role Phone Unavailable Primary Care Provider Unavailabl e Encounter Details Date Type Department Care Team (Latest Contact Info) Description 10/18/2015 9:25 AM DIE WELDER - 10/18/2015 1:07 PM DIE WELDER Hospital Encounter [facility] Grover Calles MD [address] [place] [address] Hodgkin lymphoma (CMS/HCC); Chronic obstructive pulmonary disease (CMS/HCC) Social History Tobacco Use Types Packs/Day Years Used Date Smoking Tobacco: Never Assessed Comments Unknown Sex and Gender Information Value Date Recorded Sex Assigned at Not on file Legal Sex Female 1:00 AM DIE WELDER Gender Identity Not on file Sexual Orientation Not on file documented as of this encounter Last Filed Vital Signs Vital Sign Reading Time Taken Comments Blood Pressure 111/76 10/17/2015 8:54 AM DIE WELDER Pulse 84 10/17/2015 8:54 AM DIE WELDER Temperature 36.3 ??C (97.4 ??F) 10/17/2015 8:54 AM CS T Respiratory Rate - - Oxygen Saturation 99% 10/17/2015 8:54 AM DIE WELDER Inhaled Oxygen Concentration - - Weight 86.2 kg (190 lb) 10/17/2015 8:54 AM DIE WELDER Height 172.7 cm (5' 8 ) 10/17/2015 8:54 AM DIE WELDER Body Mass Index 28.89 10/17/2015 8:54 AM DIE WELDER documented in this encounter Plan of Treatment Not on file documented as of this encounter Procedures Procedure Name Priority Date/Time Associated Diagnosis Comments SCAN - PATHOLOGY 10/20/2015 12:0 0 AM DIE WELDER HEMOGRAM WITH MANUAL DIFFERENTIAL Routine 10/18/2015 9:49 AM DIE WELDER APTT Routine 10/18/2015 9:49 AM DIE WELDER PROTIME-INR Routine 10/18/2015 9:49 AM DIE WELDER documented in this encounter Results * SCAN - PATHOLOGY (10/20/2015 12:00 AM DIE WELDER) Narrative 10/20/2015 12:00 AM DIE WELDER Ordered by an unspecified provider. us Historical Provider MD Final Res ult * (ABNORMAL) Hemogram with manual differential (10/18/2015 9:49 AM DIE WELDER) WBC 1.5(LL) 4.6 - 10.2 x10 3/ul Comment: RBC 4.32 3.76 - 4.80 x10 6/ul Hemoglobin 12.5 11.0 - 15.0 g/dl Hct 39.3 33.0 - 43.0 % 10/18/2015 10:25 AM DIE WELDER [employer] HISTORICAL RESULTS MCV 91.0 80.0 - 97.0 fl 10/18/2015 10:25 AM DIE WELDER [employer] HISTORICAL RESULTS MCH 28.9 27.0 - 31.2 pg 10/18/2015 10:25 AM DIE WELDER [employer] HISTORICAL RESULTS MCHC 31.8 31.8 - 35.4 g/dl RDW 23.2(H) 11.6 - 14.8 % Plt Count 256 124 - 400 x10 3/ul MPV 9.8 7.4 - 10.4 fl MANUAL DIFF MANUAL DIFF --------- -- Neutrophils % (Manual) 17(L) 37 - 80 % 10/18/2015 11:31 AM DIE WELDER [employer] HISTORICAL RESULTS Band Neutrophils % 16(H) 0 - 9 % Lymphocytes % (Manual) 34 10 - 51 % Atypical Lymphs % 11(H) 0 - 6 % 016 11:31 AM [employer] HISTORICAL RESULTS Monocytes % (Manual) 17(H) 0 - 12 % Eosinophils % (Manual) 4 0 - 7 % Basophils % (Manual) 1 0 - 1 % ABSOLUTE COUNTS ABSOLUTE COUNTS --------- -- Abs Neuts cells/mm3 495 /ul Absolute Neutrophils 0.3(L) 1.7 - 8.7 x10 3/ul Absolute Band Neuts 0.2 0.0 - 0.3 x10 3/ul Absolute Lymphocytes 0.5 0.2 - 4.6 x10 3/ul ATYPICAL LYMPH ABS# 0.2 0 - 0.3 x10 3/ul Absolute Monocytes 0.3 0.1 - 1.5 x10 3/ul Absolute Eosinophils 0.1 0.0 - 0.7 x10 3/ul Absolute Basophils 0.0 0.0 - 0.2 x10 3/ul Platelet Evaluation AGREE AGREE Comment:Slide review of plat elets correlates with instrument count. Polychromasia 1+ Anisocytosis 1+ 10/18/2015 9:49 AM DIE WELDER 10/18/2015 10:14 AM DIE WELDER Narrative [facility] HISTORICAL RESULTS - 10/18/2015 11:31 AM DIE WELDER Results called and repeated by Mirtha Young to Josefina RN ?? GI LAB ? Grover Tam MD LAB BLOOD ORDERABLES Final Result Performing Organization Address [facility] Co de Phone Number [facility] HISTORICAL RESULTS * Protime-INR (10/18/2015 9:49 AM DIE WELDER) PT 12.0 11.8 - 14.5 SECONDS Comment:New Reference Range in use at [facility] 10/12/2015 INR 0.90 0.01 - 5.99 Comment: Recommended Therapeutic range for Oral Anticoagulant Therapy No anti-coagulation therapy ? Normal Range: ?0.8-1.4 Anti-coagulation therapy ? Low intensity therapy ?2.0-3.0 ? High intensity therapy ?? 2.5-3.5 Critical Value ? Greater than or equal to 6.0 Patients should be monitored for serious bleeding. ?? 10/18/2015 9:49 AM DIE WELDER 10/18/2015 10:14 AM DIE WELDER Grover Tam MD LAB BLOOD ORDERABLES Final Result Performing Organization Address [facility] Co de Phone Number [facility] HISTORICAL RESULTS * aPTT (10/18/2015 9:49 AM DIE WELDER) APTT 27 26 - 33 SECONDS 10/18/2015 10:48 AM DIE WELDER [facility] HISTORICAL RESULTS Comment:New Reference Range in use at [facility] 10/12/2015 10/18/2015 9:49 AM DIE WELDER 10/18/2015 10:14 AM DIE WELDER Grover Tam MD LAB BLOOD ORDERABLES Final Result [facility] HISTORICAL RESULTS documented in this encounter Visit Diagnoses Diagnosis Hodgkin lymphoma (HCC) Chronic obstructive pulmonary disease (HCC) documented in this encounter
== END 2024-08-28 12:08 | disposition home or self-care (01) ==
PROVIDERS: PCP Family Medicine; Visit Provider Family Medicine
DX: R79.89 Other specified abnormal findings of blood chemistry (principal); K44.9 Diaphragmatic hernia without obstruction or gangrene; E27.8 Other specified disorders of adrenal gland; I71.43 Infrarenal abdominal aortic aneurysm, without rupture; K76.0 Fatty (change of) liver, not elsewhere classified; Z85.71 Personal history of Hodgkin lymphoma
CPT/HCPCS: 74150

== ENCOUNTER 2024-10-16 08:57 | Outpatient (CLI) | payer MEDICARE, MEDICAID, SELFPAY ==
--- OUTSIDE RECORDS SUMMARY | 2024-10-16 09:00 | XMS_ITS | Referral Summary ---
Author Organization [facility] Address [address] [place] [address] Care Team Providers Care Regulatory Consultant Name Role Phone Unavailable Primary Care Provider Unavailabl e Source Comments [facility] [facility],non-owned Affiliates and Associated Physician Practices is amultiple site organization consisting of ambulatory clinics and hospital sitesin [place], [place], [place] and [place]. This disclosure is being madepursuant to the Care Everywhere program and may not contain all information available regarding this patient. Last updated 18.[facility] Social History Tobacco Use Types Packs/Day Years Used Date Smoking Tobacco: Never Assessed Sex and Gender Information Value Date Recorded Sex Assigned at Not on file Gender Identity Not on file Sexual Orientation Not on file Last Filed Vital Signs Vital Sign Reading Time Taken Comments Blood Pressure 114/72 09/05/2015 10:19 AM LAW RESEARCHER Pulse 101 09/05/2015 10:19 AM LAW RESEARCHER Temperature 36.7 C (98.1 F) 09/05/2015 10:19 AM LAW RESEARCHER Respiratory Rate 18 09/05/2015 10:19 AM LAW RESEARCHER Oxygen Saturation 93% 09/05/2015 10:19 AM LAW RESEARCHER Inhaled Oxygen Concentration - - Weight 83.5 kg (184 lb) 09/05/2015 10:19 AM LAW RESEARCHER Height 172.7 cm (5' 8 ) 08/28/2015 9:15 AM LAW RESEARCHER Body Mass Index 27.98 08/28/2015 9:15 AM LAW RESEARCHER Plan of Treatment Not on file
--- OUTSIDE RECORDS SUMMARY | 2024-10-16 09:00 | XMS_ITS | Clinical Summary ---
Author Organization [facility] Address [address] [place] [address] Care Team Providers Care Coin Rolling Machine Operator Name Role Phone Biju Whyte MD Primary Care Provider [phone] Allergies Active Allergy Reactions Criticality Noted Date [...] Comments Blood Pressure 97/63 11/05/2022 1:25 PM PREBOARDER Pulse 69 11/05/2022 1:25 PM PREBOARDER Temperature 36.1 C (96.9 F) 11/05/2022 12:59 PM PREBOARDER Respiratory Rate 28 11/05/2022 1:25 PM PREBOARDER Oxygen Saturation 95% 11/05/2022 1:25 PM PREBOARDER Inhaled Oxygen Concentration - - Weight 81.6 kg (180 lb) 10/30/2022 12:44 PM PREBOARDER Height 172.7 cm (5' 8 ) 10/30/2022 12:44 PM PREBOARDER Body Mass Index 27.37 10/30/2022 12:44 PM PREBOARDER Plan of Treatment Health Maintenance Due Date [...] (1 - 1-dose 75+ series) 2039 Meningococcal B Vaccine Aged Out No l onger eligible based on patient's age to complete this topic Meningococcal Vaccine Aged Out No arian katina eligible based on patient's age to complete this topic RSV Immunizations Under 20 Months Aged Out No longer eligible b ased on patient's age to complete this topic Procedures Procedure Name Priority Date/Time Associated Diagnosis Comments COLONOSCOPY Routine 11/05/2022 10:31 AM PREBOARDER from Last 3 Months or Most Recently Relevant to Health Maintenance Insurance MEDICARE MEDICAID [facility] Care Teams Coin Rolling Machine Operator Relationship Specialty Start Date End Date Biju Whyte MD [address] [place] [id number] PCP - General FAMILY PRACTICE 10/10/17
--- OUTSIDE RECORDS SUMMARY | 2024-10-16 09:00 | XMS_ITS | Clinical Summary ---
Author Organization [facility] Address [address] [place] [address] Phone Care Team Providers Care Guest Associate Name Role Phone Mikel Gibbons MD Primary Care Provider [phone] Allergies Active Allergy Reactions Criticality Noted Date [...] Comments Blood Pressure 114/86 08/16/2016 11:42 AM BROWNFIELD REDEVELOPMENT SPECIALIST Pulse 82 08/16/2016 11:42 AM BROWNFIELD REDEVELOPMENT SPECIALIST Temperature 36.6 C (97.9 F) 08/16/2016 11:42 AM BROWNFIELD REDEVELOPMENT SPECIALIST Respiratory Rate 16 08/16/2016 11:42 AM BROWNFIELD REDEVELOPMENT SPECIALIST Oxygen Saturation 98% 08/16/2016 11:42 AM BROWNFIELD REDEVELOPMENT SPECIALIST Inhaled Oxygen Concentration - - Weight 80.8 kg (178 lb 3.2 oz) 08/16/2016 11:42 AM BROWNFIELD REDEVELOPMENT SPECIALIST Height 172.7 cm (5' 8 ) 08/16/2016 11:42 AM BROWNFIELD REDEVELOPMENT SPECIALIST Body Mass Index 27.1 08/16/2016 11:42 AM BROWNFIELD REDEVELOPMENT SPECIALIST Plan of Treatment Health Maintenance Due Date Last Done Comments Hepatitis C Virus (HCV) Screening 1965 TdaP Immunization 1965 SARS-COV-2 Immunization (#1) 1969 Pneumococcal Immunization Co mbined (1 of 2 - PCV) 1970 Pneumococcal Immunization (5 0+ years) (1 of 2 - PCV) 1983 Zoster Immunization (1 of 2) 1983 Colonoscopy 2009 Colorectal Cancer Screening 2009 Cologuard 2014 Immunochemical Fecal Occult Blood 2014 Mammogram 2014 Influenza Immunization (#1) 2024 Respiratory Syncytial Virus (RSV) Immunization (Adult) (1 - Risk 60-74 years 1-dose series) 2024 Hepatitis B Immunization Aged Out No longer eligible based on patient's age to complete this topic Meningococcal Immunization (ACWY) Aged Out No longer eligible based on patient's age to complete this topic Rotavirus Immunization Aged Out No lo nger eligible based on patient's age to complete this topic Insurance MEDICAID [place] Care Teams Guest Associate Relationship Specialty Start Date End Date Mikel Gibbons MD [address] [place] [address] PCP - General Family Medicine 04/19/16
--- OUTSIDE RECORDS SUMMARY | 2024-10-16 09:00 | XMS_ITS | Encounter Summary ---
Author Organization [facility] Address [address] [place] [address] Care Team Providers Care Gardening Instructor Name Role Phone Unavailable Primary Care Provider Unavailabl e Encounter Details Date Type Department Care Team (Late st Contact Info) Description 10/18/2015 Lab Requisition [facility] - Lab Cytogenetics [address] [place] [address] Grover Tam MD [address] [place] [id number] Social History Tobacco Use Types Packs/Day Years [...] CYTOGENETICS CANCER PANEL Routine 10/18/2015 12:00 AM TITLE SEARCHER documented in this encounter Results * CYTOGENETICS CANCER PANEL (10/18/2015 12:00 AM TITLE SEARCHER) Indication for Study Hx of Hodgkin's Disease / Anemia / Thrombocytosis 6 6:45 AM [facility] CYTOGENOMIC LAB Results Cytogenetics Analysis of 20 cells (8 cells karyotyped, GTL-banding) from 24-hour unstimulated bone marrow cultures showed the following chromosome pattern: 46,XX[20] 6 6:45 AM [facility] CYTOGENOMIC LAB Interpretation Female chromosome analysis showing 46,XX with no evidence for any clonal structural or numerical abnormality in all cells examined at 400 average band resolution. 6 6:45 AM [facility] CYTOGENOMIC LAB Historical Cytogenomic Report [id number] on 06/27/15 Results Analysis and count of 20 cells (8 cells karyotyped, GTL-banding) from 24-hour unstimulated and 72-hour Interleukin stimulated bone marrow cultures showed the following chromosome pattern: 46,XX[20] Fluorescence In-Situ Hybridization (FISH): Analysis of 200 interphase cells hybridized with specific labeled fluorescent probes*: dual labeled probes* [id number] directed onto 7 cent/7q31 showed the following results: nuc mandi (D7Z1,T6K242)x2[194/ 200] Normal Note: The remaining percentage of cells have signals that either represent G1 cells or endoreduplicated cells of no significance. . Interpretation Female chromosome analysis showing 46,XX with no evidence for any clonal structural or numerical abnormality in all cells examined at 400 average band resolution. One cell had either a deletion of 7q or a broken 7q. To determine if this is significant or clonal, FISH of [id number] was performed on 200 interphase cells on the same slide where this non-clonal metaphase was found. FISH was negative indicating non clonality. Clinicopathological correlation is suggested. at 1108 . 6 6:45 AM TITLE SEARCHER [facility] CYTOGENOMIC LAB Client Information [facility] - 6 6:45 AM TITLE SEARCHER [facility] CYTOGENOMIC LAB Other BONE MARROW SPECIMEN / Unknown 10/18/2015 10/18/2015 3:25 PM TITLE SEARCHER Grover Tam MD LAB - PATHOLOGY/CY TOLOGY ORDERABLES [facility] CYTOGENOMIC [facility] [address] [place], [place] [id number] documented in this encounter Visit Diagnoses Not on filedocumented in this encounter
--- OUTSIDE RECORDS SUMMARY | 2024-10-16 09:00 | XMS_ITS | Clinical Summary ---
Author Organization [facility] [employer] [facility] Address [address] [place] [address] Care Team Providers Care Sales Specialist Name Role Phone Biju Whyte MD Primary Care Provider [phone] Allergies Active Allergy Reactions Criticality Noted Date Comments Codeine Nausea and Vomiting,Unknown Low 01/05/20 16 Latex Rash,Unknown Medium 01/05/2016 Medications atorvastatin calcium (LIPITOR ORAL) Take by mouth. Activ e aspirin (ECOTRIN EC) 81 mg Tablet, Delayed Release (E.C.) Take 81 mg by mouth daily. Active pantoprazole sodium (PROTONIX ORAL) Take by mouth. Active TRUEPLUS LANCETS 33 gauge TEST BID AND BEFORE LARGEST MEAL 09/22/19 20 Active ipratropium-albuter ol (DUONEB) 0.5 mg-3 mg(2.5 mg base)/3 mL Solution for Nebulization U 3 ML VIA NEB Q 6 H 09/20/19 20 Active VASCEPA 1 gram Capsule TK 2 CS PO BID B MEALS 09/22/19 20 Active ergocalciferol (VITAMIN D2) 50,000 unit capsule TK 1 C PO Q WK IN THE MORNING 08/20/20 19 Active JARDIANCE 25 mg tablet TK 1 T PO QD IN THE MORNING 09/22/19 20 Active Cholecalciferol, Vitamin D3, 3,000 unit Tablet every 24 hours. Ac tive TRUE METRIX GLUCOSE TEST STRIP Strip 09/22/19 20 Active VENTOLIN HFA 90 mcg/actuation inhaler USE 2 PUFFS PO Q 6 H PRN 08/24/20 19 Active fenofibrate (LOFIBRA) 160 mg Tablet fenofibrate 160 mg tablet TK 1 T PO QHS 01/12/20 19 Active levothyroxine 112 mcg tablet levothyroxine 112 mcg tablet Active fenofibrate nanocrystallized (TRICOR) 145 mg tablet Take by mouth. 07/02/20 18 Active exenatide microspheres (Bydureon BCise) 2 mg/0.85 mL Auto-Injector Bydureon BCise 2 mg/0.85 mL subcutaneous auto-injector INJECT 2 MG UNDER THE SKIN EVERY WEEK DIRECTED Active evolocumab (Repatha SureClick) 140 mg/mL Pen Injector 1 mL. A ctive alirocumab (Praluent Pen) 75 mg/mL Pen Injector 150 mg/mL. Active blood sugar diagnostic (True Metrix Glucose Test Strip) Strip True Metrix Glucose Test Strip TEST BID Active budesonide-glycopyr -formoterol 160-9-4.8 mcg/actuation HFA Aerosol Inhaler Breztri Aerosphere 160 mcg-9mcg-4.8mcg/ actuation HFA aerosol inhaler Active alendronate (FOSAMAX) 35 [...] at Not on file Legal Sex Female 10:10 AM CDT Gender Identity Not on file Sexual Orientation Not on file Last Filed Vital Signs Vital Sign Reading Time Taken Comments Blood Pressure 111/76 04/16/2021 9:55 AM CDT Pulse 80 04/16/2021 9:55 AM CDT Temperature 37 C (98.6 F) 04/16/2021 9:55 AM CDT Respiratory Rate - [...] Chest Other Elio Castellanos MD CT ORDERABLES Final Result from Last 3 Months or Most Recently Relevant to Health Maintenance Insurance [facility] [id number] MEDICAID [place] Care Teams Sales Specialist Relationship Specialty Start Date End Date Biju Whyte MD PCP - General Emergency Medicine 05/28/19
--- OUTSIDE RECORDS SUMMARY | 2024-10-16 09:00 | XMS_ITS | Patient Health Summary ---
Author Organization [facility] [employer] Address [address] [place] [address] Care Team Providers Care Ec Teacher Name Role Phone Unavailable Primary Care Provider Unavailabl e Note from [facility],non-owned Affiliates and Associated Physician Practices is amultiple site organization consisting of ambulatory clinics and hospital sitesin [place], [place], [place] and [place]. This disclosure is being madepursuant to the Care Everywhere program and may not contain all information available regarding this patient. Last updated 18.[facility] [employer] Social History Tobacco Use Types Packs/Day Years Used Date Smoking Tobacco: Never Assessed Sex and Gender Information Value Date Recorded Sex Assigned at Not on file Gender Identity Not on file Sexual Orientation Not on file Last Filed Vital Signs Vital Sign Reading Time Taken Comments Blood Pressure 114/72 09/05/2015 10:19 AM TERMITE CONTROL SERVICE REPRESENTATIVE Pulse 101 09/05/2015 10:19 AM TERMITE CONTROL SERVICE REPRESENTATIVE Temperature 36.7 C (98.1 F) 09/05/2015 10:19 AM TERMITE CONTROL SERVICE REPRESENTATIVE Respiratory Rate 18 09/05/2015 10:19 AM TERMITE CONTROL SERVICE REPRESENTATIVE Oxygen Saturation 93% 09/05/2015 10:19 AM TERMITE CONTROL SERVICE REPRESENTATIVE Inhaled Oxygen Concentration - - Weight 83.5 kg (184 lb) 09/05/2015 10:19 AM TERMITE CONTROL SERVICE REPRESENTATIVE Height 172.7 cm (5' 8 ) 08/28/2015 9:15 AM TERMITE CONTROL SERVICE REPRESENTATIVE Body Mass Index 27.98 08/28/2015 9:15 AM TERMITE CONTROL SERVICE REPRESENTATIVE Procedures * CYTOGENETICS CANCER PANEL(Performed 10/18/2015) * COMPLETE PFT W/WO BRONCHODILATOR(Performed 08/31/2015) * BLOOD GASES ART - PFT(Performed 08/30/2015) * VITAMIN B12(Performed 08/30/2015) * VITAMIN B6(Performed 08/30/2015) * LAB HISTORICAL RESULTS-ONBASE(Performed 08/30/2015) * PULSE OX EXERCISE - POCT (AMB) [facility](Performed 08/28/2015) * CYTOGENETICS CANCER PANEL(Performed 06/19/2015) Performed for Hodgkin lymphoma Results * CYTOGENETICS CANCER PANEL (10/18/2015 12:00 AM [facility]) Only the most recent of2 resultswithin the time period is included. Indication for Study Hx of Hodgkin's Disease / Anemia / Thrombocytosis 6 6:45 AM [facility] CYTOGENOMIC LAB Results Cytogenetics Analysis of 20 cells (8 cells karyotyped, GTL-banding) from 24-hour unstimulated bone marrow cultures showed the following chromosome pattern: 46,XX[20] 6 6:45 AM [facility] CYTOGENOMIC LAB Interpretation Female chromosome analysis showing 46,XX with no evidence for any clonal structural or numerical abnormality in all cells examined at 400 average band resolution. 6 6:45 AM [facility] CYTOGENOMIC LAB Historical Cytogenomic Report [id number] on 06/27/15 Results Analysis and count of 20 cells (8 cells karyotyped, GTL-banding) from 24-hour unstimulated and 72-hour Interleukin stimulated bone marrow cultures showed the following chromosome pattern: 46,XX[20] Fluorescence In-Situ Hybridization (FISH): Analysis of 200 interphase cells hybridized with specific labeled fluorescent probes*: dual labeled probes* [id number]/[id number] directed onto 7 cent/7q31 showed the following results: nuc mandi (D7Z1,U1K446)x2[194/ 200] Normal Note: The remaining percentage of [...] this is significant or clonal, FISH of [id number]/CEP7 was performed on 200 interphase cells on the same slide where this non-clonal metaphase was found. FISH was negative indicating non clonality. Clinicopathological correlation is suggested. at 1108 . 6 6:45 AM [facility] CYTOGENOMIC LAB Client Information [facility] - 6 6:45 AM TERMITE CONTROL SERVICE REPRESENTATIVE [facility] MOLECULAR CYTOGENOMIC LAB Other BONE MARROW SPECIMEN / Unknown 10/18/2015 10/18/2015 3:25 PM TERMITE CONTROL SERVICE REPRESENTATIVE Grover Tam MD LAB - PATHOLOGY/CY TOLOGY ORDERABLES [facility] MOLECULAR CYTOGENOMIC LAB [address] [place] [address] * COMPLETE PFT W/WO BRONCHODILATOR (08/31/2015 10:47 AM TERMITE CONTROL SERVICE REPRESENTATIVE) Impressions [facility] - 08/31/2015 10:47 AM TERMITE CONTROL SERVICE REPRESENTATIVE [facility] DEPARTMENT OF PULMONARY, CRITICAL [...] Note Provider, MD Fermin - 02/13/2018 IMPRESSION [facility] DEPARTMENT OF PULMONARY, CRITICAL [...] MD Amandeep Yadav MD RESPIRATORY THERAPY ORDERABLES [facility] RAD[facility] * (ABNORMAL) BLOOD GASES ART - PFT (08/30/2015 4:07 PM TERMITE CONTROL SERVICE REPRESENTATIVE) pH Arterial 7.41 7.35 - 7.45 [facility] pCO2 Arterial 38 35 - 45 mmHg [facility] pO2 Arterial 57(L) 77 - 101 mmHg [facility] HCO3 Arterial 23.6 22.0 - 26.0 mmol/L [facility] TCO2 Arterial 24.8(L) 25.0 - 29.0 mmol/L [facility] Base Excess Arterial -0.3 -2.0 - 2.0 mmol/L [facility] Hemoglobin Arterial 9.7(L) 12.0 - 15.5 g/dL [facility] Oxyhemoglobin Arterial 84.8(L) 95.0 - 100.0 % [facility] Carboxyhemoglobin 7.2(H) 0.0 - 3.0 % [facility] Methemoglobin 0.7 0.0 - 2.0 % [facility] FI O2 Arterial 21.0 % [facility] Blood specimen (specimen) ARTERY SPECIMEN / Unknown 08/30/2015 4:07 PM TERMITE CONTROL SERVICE REPRESENTATIVE 08/30/2015 4:08 PM TERMITE CONTROL SERVICE REPRESENTATIVE Narrative [facility] - 08/30/2015 4:08 PM TERMITE CONTROL SERVICE REPRESENTATIVE Room Air (21%)->Yes FiO2->21 Amandeep Yadav MD LAB - BLOOD GASES OR DERABLES [facility] [address] [phone] * VITAMIN B6 (08/30/2015 2:44 PM TERMITE CONTROL SERVICE REPRESENTATIVE) Vitamin B6 3.5 2.0 - 32.8 ug/L [facility] ([facility]) 08/30/2015 2:44 PM TERMITE CONTROL SERVICE REPRESENTATIVE 08/30/2015 6:05 PM TERMITE CONTROL SERVICE REPRESENTATIVE Narrative [facility] - 09/05/2015 4:18 PM TERMITE CONTROL SERVICE REPRESENTATIVE Performed at: - Lab[address] [id number] Lining Brusher: Cory Ross MD, Phone: [phone] Betito Jacinto MD LAB - CHEMISTRY OR DERABLES Performing Organization Address City/[facility]/ZIP Co de Phone Number [facility] * VITAMIN B12 (08/30/2015 2:44 PM TERMITE CONTROL SERVICE REPRESENTATIVE) Vitamin B12 386 211 - 946 pg/mL [facility] 08/30/2015 2:44 PM TERMITE CONTROL SERVICE REPRESENTATIVE 08/30/2015 6:05 PM TERMITE CONTROL SERVICE REPRESENTATIVE Narrative [facility] ([facility]) - 09/05/2015 4:18 PM TERMITE CONTROL SERVICE REPRESENTATIVE Performed at: 02 - [address] [id number] [place] Brusher: Khris Kumari PhD, Phone: [phone] Betito Jacinto MD LAB - CHEMISTRY OR DERABLES [facility] ([facility]) * LAB HISTORICAL RESULTS-ONBASE (08/30/2015) 08/30/[address] [facility] - 10/03/2015 7:57 AM TERMITE CONTROL SERVICE REPRESENTATIVE Historical Provider LAB - CHEMISTRY O RDERABLES Performing Organization Address [facility]/ZIP Co de Phone Number [facility] [address] * PULSE OX EXERCISE - POCT (AMB) [facility] (08/28/2015) Impressions [facility] - 08/28/2015 12:00 AM TERMITE CONTROL SERVICE REPRESENTATIVE No significant desaturation with walking on RA. Narrative Procedure Note Provider, Fermin, - 02/13/2018 IMPRESSION No significant desaturation with walking on RA. Amandeep Yadav MD LAB - POINT OF CARE ORDERABLES Performing Organization Address City/[facility]/ZIP Co de Phone Number [facility]
--- OUTSIDE RECORDS SUMMARY | 2024-10-16 09:00 | XMS_ITS | Encounter Summary ---
Author Organization [facility] Address [address] [place] [address] Care Team Providers Care Information Technology Director Name Role Phone Unavailable Primary Care Provider Unavailabl e Encounter Details Date Type Department Care Team (Late st Contact Info) Description 06/19/2015 Lab Requisition [facility] - Lab Cytogenetics [address] [place] [address] Piter Ponce [address] [place] [address] Hodgkin lymphoma (HCC) Social History Tobacco Use [...] Disease Staging / Anemia 11:08 AM CDT [facility] CYTOGENOMIC LAB Results Cytogenetics Analysis and count of 20 cells (8 cells karyotyped, GTL-banding) from 24-hour unstimulated and 72-hour Interleukin stimulated bone marrow cultures showed the following chromosome pattern: 46,XX[20] Fluorescence In-Situ Hybridization (FISH): Analysis of 200 interphase cells hybridized with specific labeled fluorescent probes*: dual labeled probes* CEP7/[id number] directed onto 7 cent/7q31 showed the following results: nuc mandi (D7Z1,Z0N547)x2[194/ 200] Normal Note: The remaining percentage of cells have signals that either represent G1 cells or endoreduplicated cells of no significance. 5 11:08 AM [facility]LE[facility] CYTOGENOMIC LAB Interpretation Female chromosome analysis showing 46,XX with no evidence for any clonal structural or numerical abnormality in all cells examined at 400 average band resolution. One cell had either a deletion of 7q or a broken 7q. To determine if this is significant or clonal, FISH of [id number] was performed on 200 interphase cells on the same slide where this non-clonal metaphase was found. FISH was negative indicating non clonality. Clinicopathological correlation is suggested. 5 11:08 AM [facility] CYTOGENOMIC LAB Disclaimer *This test was developed, and its performance characteristics determined by [facility] Molecular Cytogenetics Laboratory as required by CLIA [...] FFPE specimen and 20% for FFPE specimen. Efficiency of the probe intensity was acceptable overall. [...] with cytogenetic findings. 5 11:08 AM CDT [facility] CYTOGENOMIC [facility] Client Information [facility] - 5 11:08 AM CDT [facility] CYTOGENOMIC [facility] Other BONE MARROW SPECIMEN / Unknown 06/19/2015 06/19/2015 3:05 PM CDT Piter Ponce LAB - PATHOLOGY/CYTO LOGY ORDERABLES Performing Organization Address City/State/[facility] Co de Phone Number [facility] CYTOGENOMIC [facility] [address] [place] [place] [address] documented in this encounter Visit Diagnoses Diagnosis Hodgkin lymphoma (HCC) Hodgkin's disease, unspecified documented in this encounter
--- OUTSIDE RECORDS SUMMARY | 2024-10-16 09:00 | XMS_ITS | Clinical Summary ---
Author Organization [facility] [employer] Address [address] [place] [address] Care Team Providers Care Hogshead Wrecker Name Role Phone Unavailable Primary Care Provider Unavailabl e Source Comments [facility] [employer],non-owned Affiliates and Associated Physician Practices is amultiple site organization consisting of ambulatory clinics and hospital sitesin [place], [place], [place] and [place]. This disclosure is being madepursuant to the Care Everywhere program and may not contain all information available regarding this patient. Last updated 18.[facility] [employer] Social History Tobacco Use Types Packs/Day Years Used Date Smoking Tobacco: Never Assessed Sex and Gender Information Value Date Recorded Sex Assigned at Not on file Gender Identity Not on file Sexual Orientation Not on file Last Filed Vital Signs Vital Sign Reading Time Taken Comments Blood Pressure 114/72 09/05/2015 10:19 AM FILLER PICKER Pulse 101 09/05/2015 10:19 AM FILLER PICKER Temperature 36.7 C (98.1 F) 09/05/2015 10:19 AM FILLER PICKER Respiratory Rate 18 09/05/2015 10:19 AM FILLER PICKER Oxygen Saturation 93% 09/05/2015 10:19 AM FILLER PICKER Inhaled Oxygen Concentration - - Weight 83.5 kg (184 lb) 09/05/2015 10:19 AM FILLER PICKER Height 172.7 cm (5' 8 ) 08/28/2015 9:15 AM FILLER PICKER Body Mass Index 27.98 08/28/2015 9:15 AM FILLER PICKER Plan of Treatment Health Maintenance Due Date [...] 05/13/1982 DTAP/TDAP/TD VACCINES (1 - Tdap) 1983 PNEUMOCOCCAL VACCINE 50+ (1 of 1 - PCV) 2014 ZOSTER VACCINE (1 of 2) 2014 COVID-19 VACCINE ( - 2023-2 5 season) 2024 INFLUENZA VACCINE (#1) 2024 08/28/2015 DEPRESSION SCREENING 09/08/2024 Respiratory Syncytial Virus (RSV) Vaccine Pt: or [...] patient's age to complete this topic MENINGOCOCCAL (Group B) VACCINE Aged Out No longer eligible based on patient's age to complete this topic MENINGOCOCCAL VACCINE Aged Out No arian katina eligible based on patient's age to complete this topic PNEUMOCOCCAL VACCINE Aged Out No long er eligible based on patient's age to complete this topic
--- OUTSIDE RECORDS SUMMARY | 2024-10-16 09:01 | XMS_ITS | CONTINUITY OF CARE DOCUMENT ---
Author Name sergio karenjuan Address Unknown Organization [facility] Address [address] [place] [address] Phone [phone] Care Team Providers Care Senior Gl Accountant Name Role Phone Wang South MD Unavailable LOUIE MCCOLLUM MD Unavailable [phone] LOUIE MCCOLLUM MD Unavailable [phone] PROBLEMS Condition Status Date Provider Notes Hypercholesterolemia active Wang South MD Family History of Hyperlipidemia: active ? Us sonal South MD COPD active Wang South MD Shortness of breath active Wang South MD ENCOUNTERS Date Type Provider Location Encounter Diag nosis - In-person encounter Office Visit Wang South MD [place] [facility] HypercholesterolemiaFamily History of Hyperlipidemia:COPDShortness of breath [...] Payer name Policy type / Coverage type [email or web address] [place] [employer] AND FAMILY SERVICES Medicaid 1 [id number] [place] MEDICARE Medicare [id number] ADVANCE DIRECTIVES Name Date DISCUSSED - NO [...]
--- OUTSIDE RECORDS SUMMARY | 2024-10-16 09:01 | XMS_ITS | Data Portability ---
Author Organization [place] - [facility] OFFICE Address [address] [place] [address] Care Team Providers Care Display Specialist Name Role Phone LOUIE MCCOLLUM Primary Care Provider [phone] Assessment Encounter Date Assessment Date Assessment LastModified [...] current medications, and medical follow-up as noted. [email or web address] Not available 04/07/2019 12:23:52 04/28/2019 04/28/2019 The [...] mg tablet,de layed release 2018 019 INTERFACE [id number], [address], [place], [place], [id number], 9 12:25:58 Patient Targets Encounter Date Encounter Id Patient Goals Patient Target Last Modified By Organization Details Last Modified Time Scribed by CLEMENT Montoya Not available 03/08/2019 18:17:07 Patient Instructions Encounter Date Encounter Id Patient Instructions Last Modified By Organization Details Last Modified Time 03/08/2019 [id number] high cholesterol : care instructions [email or web address] Not available 03/08/2019 21:59:15 04/07/2019 [id number] high cholesterol : care instructions [email or web address] Not available 04/07/2019 12:25:52 04/28/2019 [id number] high cholesterol : care instructions [email or web address] Not available 04/28/2019 12:38:30 Reason for Referral None Reported. Results Created Date Observation Date Name Description Value Unit Range Abnormal Flag Note LastModifiedBy Organization Detail LastModifiedTime 03/12/20 19 02/24/2019 alix ovalles am No observ ation record ed. [email or web address] Not Available 03/12 12:40:29 03/16/20 19 07/30/2017 US, thyro id No observ ation record ed. [email or web address] Not Available 03/16 16:42:05 03/16/20 19 08/13/2018 US, echoc ardio gram No observ ation record ed. Not Available 03/16 16:46:44 04/07/20 19 03/30/2019 kary can cardi olite stres s test (PROC ) No observ ation record ed. [email or web address] Not Available 2019 08:58:32 04/12/20 19 03/30/2019 kary can cardi olite stres s test (PROC ) No observ ation record ed. [email or web address] Not Available 2018 15:07:38 04/19/20 19 02/24/2019 elect rocar diogr am No observ ation record ed. Not Available 04/19 17:46:03 Result Notes None recorded. Problems Name Problem SNOMED Code Status Onset Date Resolution Date Notes Provider Name and Address Organization Details Recorded Time Hyperlipidemia 18422673 Active 2018 Shruthi Garcia [facility] 9 16:20:20 Diabetes mellitus 07410810 [facility] 16:20:36 Asthma 782939825 Active 2018 Shruthi Garcia [facility] 9 16:20:44 Dyspnea on exertion 71934869 Active 2018 Artis Medina [facility] 9 16:56:39 Problem Notes None recorded. Procedures Surgical History Date Name Laterality Status Provider Name and Address Organization Details Recorded Time Hernia Repair completed Shruthi Garcia [facility] 03/08/2019 16:19:46 Imaging Results Imaging Date Name Status LastModified by Organization Details LastModified Time 02/24/2019 electrocardiogram completed [email or web address] Informa tion not available 03/12/2019 12:40:29 07/30/2017 US, thyroid completed [email or web address] Information n ot available 03/16/2019 16:42:05 08/13/2018 US, echocardiogram completed [email or web address] Inform ation not available 03/16/2019 16:46:44 03/30/2019 lexiscan cardiolite stress test (PROC) completed [email or web address] Information not available 05/02/2020 08:58:32 03/30/2019 lexiscan cardiolite stress test (PROC) completed [email or web address] Information not available 04/12/2019 15:07:38 02/24/2019 electrocardiogram completed [email or web address] Informa tion not available 04/19/2019 17:46:03 Procedure [...] Address Organization Details Last Updated DateTime 9 43905.0 7 g 30.6 kg/m2 172.72 cm 94 /min 94 % 94 % 118 mm[Hg] 78 mm[Hg] [facility] 9 16:31:05 Date Recorded Body height Body mass index (BMI) Body weight Heart rate Oxygen saturation Oxygen saturation in Arterial blood by Pulse oximetry Systolic blood pressure Diastolic blood pressure Provider Name and Address Organization Details Last Updated DateTime 9 172.72 cm 30.3 kg/m2 32779.8 8 g 85 /min 93 % 93 % 124 mm[Hg] 90 mm[Hg] Shruthi [facility] 9 10:58:37 Date Recorded Body height Body mass index (BMI) Body weight Oxygen saturation Oxygen saturation in Arterial blood by Pulse oximetry Heart rate Systolic blood pressure Diastolic blood pressure Provider Name and Address Organization Details Last Updated DateTime 9 172.72 cm 30.3 kg/m2 39669.8 8 g 94 % 94 % 98 /min 128 mm[Hg] 78 mm[Hg] Shruthi [facility] 9 12:21:20 Social History Question Answer Notes LastModified by Organizat ion Details LastModified Time Tobacco Smoking Status Current Every Day Smoker Not Available [facility] 07/11/2020 03:30:42 What Is Your Level Of Caffeine Consumption? Moderate [id number] Information not available 07/11/2020 What Type Of Diet Are You Following? REGULAR [id number] Information not available 07/11/2020 Do You Or Have You Ever Used E-cigarettes Or Vape? Never Used Electronic Cigarettes [id number] Information not available 07/11/2020 Marital Status [email or web address] Informatio n not available 03/08/2019 What Was The Date Of Your Most Recent Tobacco Screening? 03/08/2019 [id number] Information not available 07/11/2020 How Many Children Do You Have? 1 [id number] Information not available 07/11/2020 How Many Years Have You Smoked Tobacco? 37 [id number] Information not available 07/11/2020 Sex: Unknown Functional Status Question Answer Note LastModified by Organization D etails LastModified Time What is your exercise level? None [id number] Information not available 07/11/2020 Mental Status None [...] Diagnosis/Indication Diagnosis SNOMED-CT Code Diagnosis ICD10 Code Diagnosis Note [id number] Artis Medina [facility] OFFICE [address] [place] [address] 03/08/2019 15:49:58 03/08/2019 21:59:20 Hyperlipidemia 81259863 E78.2 FLP reviewed and LDL so high that is was unmeasurab le. patient is on Lipitor but may need to change to Crestor/ro suvastatin for better control. Switched to Crestor 20 mg q day. Diabetes mellitus 280677 09 E11.59 Discussed importance of tight glycemic control to minimize cardiovasc ular disease progressio n. Continue with Metformin will discuss and introduce further treatment at f/u. Will review labs for HgA1C and consider f/u fasting Lipids in 2 months after switching treatment. Dyspnea on exertion 6084 5006 R06.09 Patient presents with exertional dyspnea which can be an anginal equivalent and chest pain. Given the history, exam findings and {{high* in termediate low}} cardiac risk factors, I {{feel* do not feel}} additional investigat ion is warranted. I have made arrangemen ts in the near future for {{a stress nuclear test Lexiscan, subject may have a difficult time with treadmill stress# an exercise stress echocardio gram to evaluate for any ischemia, structural heart disease, or exercise induced arrythmia an exercise stress nuclear test an exercise stress nuclear test (stress echo not possible due to COPD or obesity) a n exercise stress nuclear test and an echocardio gram to evaluate for any ischemia or structural heart disease a pharmacolo gic stress nuclear test due to reduced functional capacity or conduction abnormalit y cardiac catheteriz ation an echocardio gram to evaluate left ventricula r function and any structural heart disease or valvular abnormalit y}}. The procedure was discussed with the patient, and risks, benefits, and alternativ e options were explained. {{ The patient was informed about heart catheteriz ation and interventi onal procedures and agrees to proceed.}} Appropriat e labwork {{has # has has not}} been performed recently and has been evaluated {{have not have}} FLP, CBC, CMP, I have asked the patient to curtail exercise and activities until our investigat ion is complete. I have {{made no made the following* }} There have been no adjustment s at this time to the present medical regimen. {{ Patient has been started on daily aspirin.}} {{ Patient has been given a prescripti on for sublingual nitroglyce rin.}} [address] [facility] OFFICE [address] [place] [address] 04/07/2019 10:31:28 04/07/2019 12:26:12 Dyspnea on exertion 31166661 R06.09 Patient presents with ongoing exertional dyspnea which can be an anginal equivalent and chest pain. Had Lexiscan 03/30/19: positive for ischemia, mildly reversible defect in inferior area, LVEF >60%. The patient will be scheduled for left heart catheteriz ation, with coronary angiogram, and possible PTCA/Stent . The procedure was discussed with the patient, and risks, benefits, and alternativ e options were explained. The patient was given informatio n about heart catheteriz ation and interventi onal procedures . The patient agrees to proceed at [facility]. {{ The patient was informed about heart catheteriz ation and interventi onal procedures and agrees to proceed.}} Appropriat e labwork {{has # has has not}} been performed recently and has been evaluated {{have not have}} FLP, CBC, CMP, PT, PTT. I have asked the patient to curtail exercise and activities until our investigat ion is complete. I have {{made no made the following* }} There have been no adjustment s at this time to the present medical regimen. {{ Patient has been started on daily aspirin.*} } {{ Patient has been given a prescripti on for sublingual nitroglyce rin.}} Hyperlipidemia 10989606 E78.2 FLP reviewed and LDL so high that is was unmeasurab le. Patient is on Lipitor but may need to change to Crestor/ro suvastatin for better control. Obtain FLP. Diabetes mellitus 514700 09 E11.59 Discussed importance of tight glycemic control to minimize cardiovasc ular disease progressio n. [address] [facility] OFFICE [address] [place] [address] 04/28/2019 12:15:42 04/28/2019 12:50:28 Dyspnea on exertion 64411805 R06.09 Patient presents with ongoing exertional dyspnea which can be an anginal equivalent and chest pain. Had Lexiscan 03/30/19: positive for ischemia, mildly reversible defect in inferior area, LVEF >60%. The patient will be scheduled for left heart catheteriz ation, with coronary angiogram, and possible PTCA/Stent . The procedure was discussed with the patient, and risks, benefits, and alternativ e options were explained. The patient was given informatio n about heart catheteriz ation and interventi onal procedures . The patient agrees to proceed at [facility]. {{ The patient was informed about heart catheteriz ation and interventi onal procedures and agrees to proceed.}} Appropriat e labwork {{has # has has not}} been performed recently and has been evaluated {{have not have}} FLP, CBC, CMP, PT, PTT. I have asked the patient to curtail exercise and activities until our investigat ion is complete. I have {{made no made the following* }} There have been no adjustment s at this time to the present medical regimen. {{ Patient has been started on daily aspirin.*} } {{ Patient has been given a prescripti on for sublingual nitroglyce rin.}} Hyperlipidemia 00900975 E78.2 FLP reviewed and LDL so high that is was unmeasurab le. Patient is on Lipitor but may need to change to Crestor/ro suvastatin for better control. Obtain FLP. Diabetes mellitus 787380 09 E11.59 Discussed importance of tight glycemic control to minimize cardiovasc ular disease progressio n. Health Concerns Section Related Observation LastModified by Organization Detai ls LastModified Time None Recorded Concern Status LastModified by Organization Details LastModified Time None Recorded Advance Directives Directive None Recorded Payers Encounter Date Sequence Insurance Name Policy Number Policy [place] Covered Member ID [place] Member ID Guarantor Name 03/08/2019 1 [place] Nayeli Edmunds [id number] Nayeli Edmunds 03/08/2019 2 [place] [facility] Nayeli Edmunds [id number] Nayeli Edmunds 04/07/2019 1 [place] Nayeli Edmunds [id number] Nayeli Edmunds 04/07/2019 2 [place] [facility] Nayeli Edmunds [id number] Nayeli Edmunds 04/28/2019 1 [place] Nayeli Edmunds [id number] Nayeli Edmunds 04/28/2019 2 [place] [facility] Nayeli Edmunds [id number] Nayeli Edmunds Notes Date Note Type Note Provider Name [...] past: EK02/24/19 Normal sinus rhythm. Artis esposito [facility] 03/08/2019 21:59:19 04/07/2019 text/html [...] benign. recommend followup ultrasound in 12 months. Artis esposito [place] - [facility] 04/07/2019 12:26:10 04/28/2019 text/html cc: BRAUN 53 year-old female with history of Hodgkin's lymphoma, COPD, DM type 2, Hypothyroidism on Synthroid, uncontrolled dyslipidemia, iron-deficiency anemia, presents for follow-up with a chief complaint of dyspnea. Patient was referred last visit for [facility] (done in the setting of continuing exertional [...]
--- OUTSIDE RECORDS SUMMARY | 2024-10-16 09:01 | XMS_ITS | Clinical Summary ---
Author Organization [facility] Address [address] [place] [address] Phone Care Team Providers Care Cut Off Saw Set Up Operator Name Role Phone Biju Whyte MD Primary Care Provider [phone] Allergies Active Allergy Reactions Criticality Noted Date [...] 12/03/2018 Assessment & Plan (09/30/2020 7:18 PM QUALITY IMPROVEMENT COORDINATOR (RN)): Continue with supplemental oxygen at night. Assessment & Plan (03/29/2020 1:34 PM CDT): Overnight pulse oximetry shows significant desaturations. Will recertify her for 3 L of supplemental oxygen at night. Assessment & Plan (02/26/2020 2:57 PM CDT): Continue with 3 L of supplemental oxygen at night.Will obtain overnight pulse oximetry for recertification of nocturnal oxygen. Assessment & Plan (09/17/2019 5:24 PM QUALITY IMPROVEMENT COORDINATOR (RN)): Continue with 3 L of supplemental oxygen at night. Assessment & Plan (03/11/2019 3:01 PM CDT): Continue with 3 L of oxygen at night. Smoking 12/03/2018 Assessment & Plan (09/30/2020 7:18 PM QUALITY IMPROVEMENT COORDINATOR (RN)): Patient was advised to quit smoking. Obtain records of CT scan of the chest done at [facility]. Assessment & Plan (03/29/2020 1:34 PM CDT): Patient was advised to quit smoking. She is scheduled for repeat CT scan of the chest for lung cancer screening before her next visit. Assessment & Plan (02/26/2020 2:58 PM CDT): Will obtain CT scan of the chest with her next visit for lung cancer screening. Assessment & Plan (09/17/2019 5:25 PM QUALITY IMPROVEMENT COORDINATOR (RN)): Patient continued to smoke. She was advised [...] disease) Assessment & Plan (09/30/2020 7:18 PM QUALITY IMPROVEMENT COORDINATOR (RN)): Continue with Symbicort and p.r.n. duo nebs/albuterol inhaler. Assessment & Plan (03/29/2020 1:34 PM CDT): Continue with Symbicort, duo nebs and p.r.n. albuterol inhaler. Assessment & Plan (02/26/2020 2:58 PM CDT): CONTINUE WITH SYMBICORT AND P.R.N. ALBUTEROL INHALER. Assessment & Plan (09/17/2019 5:25 PM QUALITY IMPROVEMENT COORDINATOR (RN)): Continue with Symbicort and albuterol inhaler. Currently [...] on file Legal Sex Female 1:00 AM QUALITY IMPROVEMENT COORDINATOR (RN) Gender Identity Not on file Sexual Orientation Not on file Obstetrics History Last Filed Vital Signs Vital Sign Reading Time Taken Comments Blood Pressure 100/78 09/28/2020 9:22 AM QUALITY IMPROVEMENT COORDINATOR (RN) Pulse 73 09/28/2020 9:22 AM QUALITY IMPROVEMENT COORDINATOR (RN) Temperature 35.8 C (96.4 F) 09/28/2020 9:22 AM QUALITY IMPROVEMENT COORDINATOR (RN) Respiratory Rate 18 09/28/2020 9:22 AM QUALITY IMPROVEMENT COORDINATOR (RN) Oxygen Saturation 93% 09/28/2020 9:22 AM QUALITY IMPROVEMENT COORDINATOR (RN) Inhaled Oxygen Concentration - - Weight 88.9 kg (196 lb) 09/28/2020 9:22 AM QUALITY IMPROVEMENT COORDINATOR (RN) Height 172.7 cm (5' 8 ) 09/15/2019 1:37 PM QUALITY IMPROVEMENT COORDINATOR (RN) Body Mass Index 29.8 09/15/2019 1:37 PM QUALITY IMPROVEMENT COORDINATOR (RN) Plan of Treatment Not on file Insurance MEDICARE [place] [employer]ARE [employer] Care Teams Cut Off Saw Set Up Operator Relationship Specialty Start Date End Date Biju Whyte MD PCP - General Emergency Medicine 12/03/18
--- OUTSIDE RECORDS SUMMARY | 2024-10-16 09:01 | XMS_ITS | Referral Summary ---
Author Organization [facility] Address [address] [place] [address] Phone Care Team Providers Care Surveyor Hydrographic Name Role Phone Biju Whyte MD Primary Care Provider [phone] Allergies Active Allergy Reactions Criticality Noted Date [...] 12/03/2018 Assessment & Plan (09/30/2020 7:18 PM HEATER TENDER): Continue with supplemental oxygen at night. Assessment & Plan (03/29/2020 1:34 PM CDT): Overnight pulse oximetry shows significant desaturations. Will recertify her for 3 L of supplemental oxygen at night. Assessment & Plan (02/26/2020 2:57 PM CDT): Continue with 3 L of supplemental oxygen at night.Will obtain overnight pulse oximetry for recertification of nocturnal oxygen. Assessment & Plan (09/17/2019 5:24 PM HEATER TENDER): Continue with 3 L of supplemental oxygen at night. Assessment & Plan (03/11/2019 3:01 PM CDT): Continue with 3 L of oxygen at night. Smoking 12/03/2018 Assessment & Plan (09/30/2020 7:18 PM HEATER TENDER): Patient was advised to quit smoking. Obtain records of CT scan of the chest done at [facility]. Assessment & Plan (03/29/2020 1:34 PM CDT): Patient was advised to quit smoking. She is scheduled for repeat CT scan of the chest for lung cancer screening before her next visit. Assessment & Plan (02/26/2020 2:58 PM CDT): Will obtain CT scan of the chest with her next visit for lung cancer screening. Assessment & Plan (09/17/2019 5:25 PM HEATER TENDER): Patient continued to smoke. She was advised [...] disease) Assessment & Plan (09/30/2020 7:18 PM HEATER TENDER): Continue with Symbicort and p.r.n. duo nebs/albuterol inhaler. Assessment & Plan (03/29/2020 1:34 PM CDT): Continue with Symbicort, duo nebs and p.r.n. albuterol inhaler. Assessment & Plan (02/26/2020 2:58 PM CDT): CONTINUE WITH SYMBICORT AND P.R.N. ALBUTEROL INHALER. Assessment & Plan (09/17/2019 5:25 PM HEATER TENDER): Continue with Symbicort and albuterol inhaler. Currently [...] on file Legal Sex Female 1:00 AM HEATER TENDER Gender Identity Not on file Sexual Orientation Not on file Last Filed Vital Signs Vital Sign Reading Time Taken Comments Blood Pressure 100/78 09/28/2020 9:22 AM HEATER TENDER Pulse 73 09/28/2020 9:22 AM HEATER TENDER Temperature 35.8 C (96.4 F) 09/28/2020 9:22 AM HEATER TENDER Respiratory Rate 18 09/28/2020 9:22 AM HEATER TENDER Oxygen Saturation 93% 09/28/2020 9:22 AM HEATER TENDER Inhaled Oxygen Concentration - - Weight 88.9 kg (196 lb) 09/28/2020 9:22 AM HEATER TENDER Height 172.7 cm (5' 8 ) 09/15/2019 1:37 PM HEATER TENDER Body Mass Index 29.8 09/15/2019 1:37 PM HEATER TENDER Plan of Treatment Not on file Insurance MEDICARE [place] [employer]ARE [facility] MEDICARE Address: [address] [address] [place] [address] IDPA Care Teams Surveyor Hydrographic Relationship Specialty Start Date End Date Biju Whyte MD PCP - General Emergency Medicine 12/03/18
[2024-10-16 09:33] LABS: Basophils Absolute Auto 0.1 K/mm3 (0.0-0.1); Basophils Percent Auto 0.8 % (0.2-1.2); Eosinophils Absolute Auto 0.2 K/mm3 (0-0.3); Hematocrit 50.7 % (37.0-47.0); Hemoglobin 15.8 g/dL (12.0-15.0); Immature Granulocyte Absolute 0.04 K/mm3 (0.00-0.031); Immature Granulocyte Percent A 0.5 % (0-0.5); Lymphocytes Absolute Auto 1.32 K/mm3 (0.9-3.2); Lymphocytes Percent Auto 17.3 % (18.3-44.2); Mean Corpuscular HGB Conc 31.2 g/dl (32-36); Mean Corpuscular Hemoglobin 28.4 pg (26-34); Mean Platelet Volume 9.2 fl (7.4-10.4); Monocytes Absolute Auto 0.6 K/mm3 (0.1-0.6); Monocytes Percent Auto 7.6 % (2.6-8.5); Neutrophils Absolute Auto 5.4 K/mm3 (1.3-6.7); Neutrophils Percent Auto 70.8 % (45.5-73.1); Platelet Count Result 295 k/mm3 (150-375); Red Blood Count 5.57 M/mm3 (4.2-5.4); Red Cell Distribution Width 14.5 % (11.5-14.5); White Blood Count 7.7 K/mm3 (4.5-10.0)
[2024-10-16 09:42] LABS: Alanine Aminotransferase 78 U/L (6-35); Albumin Level 4.3 g/dL (3.5-5.1); Alkaline Phosphatase 93 U/L (38-126); Anion Gap 10 mmol/L (4-12); Aspartate Amino Transferase 81 U/L (14-36); Bilirubin,Total 0.7 mg/dL (0.2-1.3); Blood Urea Nitrogen 13 mg/dL (7-17); Calcium 9.7 mg/dL (8.4-10.2); Carbon Dioxide 30 mmol/L (22-30); Chloride 102 mmol/L (98-107); Cholesterol 281 mg/dL (0-200); Estimated Glomerular Filt Rate > 60; Glucose 145 mg/dL (65-110); HDL Direct 37 mg/dL; Potassium 4.3 mmol/L (3.4-5.0); Sodium 142 mmol/L (137-145); Triglycerides 299 mg/dL (<150)
[2024-10-16 09:51] LABS: Hemoglobin A1C 8.9 % (<5.7)
[2024-10-16 09:53] LABS: LDL Cholesterol Direct 191 mg/dL
[2024-10-16 10:06] LABS: MALB Creatinine Ratio 11.9 mg/g (0-30); Microalbumin Urine Random 14.6 mg/L (0-16.7)
== END 2024-10-16 08:58 | disposition home or self-care (01) ==
PROVIDERS: PCP Family Medicine; Visit Provider Student in an Organized Health Care Education/Training Program
DX: E11.9 Type 2 diabetes mellitus without complications (principal); E78.5 Hyperlipidemia, unspecified; K76.0 Fatty (change of) liver, not elsewhere classified; I10 Essential (primary) hypertension
CPT/HCPCS: 36415; 80053; 80061; 82043; 83036; 85025

== ENCOUNTER 2024-11-23 15:12 | Outpatient (CLI) | payer MEDICARE, MEDICAID, SELFPAY ==
--- NOTE | 2024-11-23 15:15 | ECG_ITS ---
Test Date: 2024-11-23 15:36:49 Measurements Intervals [place] Rate: 85 P: -1 DC: 157 QRS: -53 QRSD: 83 T: 12 QT: 353 QTc: 421 Interpretive Statements SINUS RHYTHM LOW QRS VOLTAGE IN PRECORDIAL LEADS [QRS DEFLECTION < 1.0 mV IN CHEST LEADS] LEFT ANTERIOR FASCICULAR BLOCK [QRS AXIS <= -45, QR IN I, RS IN II] POSSIBLE ANTERIOR MYOCARDIAL INFARCTION [30 ms Q WAVE IN V3/V4, OR R < 0.2 mV IN V4], PROBABLY OLD NONSPECIFIC T-WAVE ABNORMALITY ABNORMAL ECG Electronically Signed On 11-24-2024 12:11:51 CDT by Kodi Taylor M.D.
--- OUTSIDE RECORDS SUMMARY | 2024-11-23 17:14 | XMS_ITS | Referral Summary ---
Author Organization [facility] Address [address] [place] [address] Phone Care Team Providers Care Ammunition Assembly I Laborer Name Role Phone Biju Whyte MD Primary Care Provider [phone] Allergies Active Allergy Reactions Criticality Noted Date [...] 12/03/2018 Assessment & Plan (09/30/2020 7:18 PM INTERNIST): Continue with supplemental oxygen at night. Assessment & Plan (03/29/2020 1:34 PM CDT): Overnight pulse oximetry shows significant desaturations. Will recertify her for 3 L of supplemental oxygen at night. Assessment & Plan (02/26/2020 2:57 PM CDT): Continue with 3 L of supplemental oxygen at night.Will obtain overnight pulse oximetry for recertification of nocturnal oxygen. Assessment & Plan (09/17/2019 5:24 PM INTERNIST): Continue with 3 L of supplemental oxygen at night. Assessment & Plan (03/11/2019 3:01 PM CDT): Continue with 3 L of oxygen at night. Smoking 12/03/2018 Assessment & Plan (09/30/2020 7:18 PM INTERNIST): Patient was advised to quit smoking. Obtain records of CT scan of the chest done at [facility]. Assessment & Plan (03/29/2020 1:34 PM CDT): Patient was advised to quit smoking. She is scheduled for repeat CT scan of the chest for lung cancer screening before her next visit. Assessment & Plan (02/26/2020 2:58 PM CDT): Will obtain CT scan of the chest with her next visit for lung cancer screening. Assessment & Plan (09/17/2019 5:25 PM INTERNIST): Patient continued to smoke. She was advised [...] disease) Assessment & Plan (09/30/2020 7:18 PM INTERNIST): Continue with Symbicort and p.r.n. duo nebs/albuterol inhaler. Assessment & Plan (03/29/2020 1:34 PM CDT): Continue with Symbicort, duo nebs and p.r.n. albuterol inhaler. Assessment & Plan (02/26/2020 2:58 PM CDT): CONTINUE WITH SYMBICORT AND P.R.N. ALBUTEROL INHALER. Assessment & Plan (09/17/2019 5:25 PM INTERNIST): Continue with Symbicort and albuterol inhaler. Currently [...] centrilobular emphysema. Simple chronic bronchitis 12/03/2018 Immunizations Immunization Administration Dates Next Due Influenza, Split 09/08/2017 [...] on file Legal Sex Female 1:00 AM INTERNIST Gender Identity Not on file Sexual Orientation Not on file Last Filed Vital Signs Vital Sign Reading Time Taken Comments Blood Pressure 100/78 09/28/2020 9:22 AM INTERNIST Pulse 73 09/28/2020 9:22 AM INTERNIST Temperature 35.8 C (96.4 F) 09/28/2020 9:22 AM INTERNIST Respiratory Rate 18 09/28/2020 9:22 AM INTERNIST Oxygen Saturation 93% 09/28/2020 9:22 AM INTERNIST Inhaled Oxygen Concentration - - Weight 88.9 kg (196 lb) 09/28/2020 9:22 AM INTERNIST Height 172.7 cm (5' 8 ) 09/15/2019 1:37 PM INTERNIST Body Mass Index 29.8 09/15/2019 1:37 PM INTERNIST Plan of Treatment Not on file Insurance MEDICARE IDPA MEDICARE [employer]IONS IDPA Care Teams Ammunition Assembly I Laborer Relationship Specialty Start Date End Date Biju Whyte MD PCP - General Emergency Medicine 12/03/18
--- OUTSIDE RECORDS SUMMARY | 2024-11-23 17:14 | XMS_ITS | Clinical Summary ---
Author Organization [facility] Address [address] [place] [address] Care Team Providers Care Senior Manager Name Role Phone Unavailable Primary Care Provider Unavailabl e Source Comments [facility],non-owned Affiliates and Associated Physician Practices is amultiple site organization consisting of ambulatory clinics and hospital sitesin [place], [place], [place] and [place]. This disclosure is being madepursuant to the Care Everywhere program and may not contain all information available regarding this patient. Last updated 18.[facility] Social History Tobacco Use Types Packs/Day Years Used Date Smoking Tobacco: Never Assessed Sex and Gender Information Value Date Recorded Sex Assigned at Not on file Gender Identity Not on file Sexual Orientation Not on file Last Filed Vital Signs Vital Sign Reading Time Taken Comments Blood Pressure 114/72 09/05/2015 10:19 AM WOOD LAST MAKER Pulse 101 09/05/2015 10:19 AM WOOD LAST MAKER Temperature 36.7 C (98.1 F) 09/05/2015 10:19 AM WOOD LAST MAKER Respiratory Rate 18 09/05/2015 10:19 AM WOOD LAST MAKER Oxygen Saturation 93% 09/05/2015 10:19 AM WOOD LAST MAKER Inhaled Oxygen Concentration - - Weight 83.5 kg (184 lb) 09/05/2015 10:19 AM WOOD LAST MAKER Height 172.7 cm (5' 8 ) 08/28/2015 9:15 AM WOOD LAST MAKER Body Mass Index 27.98 08/28/2015 9:15 AM WOOD LAST MAKER Plan of Treatment Health Maintenance Due Date [...] to complete this topic MENINGOCOCCAL (Group B) VACC INE SHARED DECISION-MAKING Aged Out No longer eligibl e based on patient's age to complete this topic MENINGOCOCCAL GROUPS A/C/Y/W VACCINE Aged Out No longer eligible b ased on patient's age to complete this topic PNEUMOCOCCAL VACCINE Aged Out No long er eligible based on patient's age to complete this topic
--- OUTSIDE RECORDS SUMMARY | 2024-11-23 17:14 | XMS_ITS | Encounter Summary ---
Author Organization [facility] Address [address] [place] [address] Care Team Providers Care Computer Aided Drafter Name Role Phone Unavailable Primary Care Provider Unavailabl e Encounter Details Date Type Department Care Team (Late st Contact Info) Description 06/19/2015 Lab Requisition [facility] - Lab Cytogenetics [address] [place] [address] Piter Ponce [address] [place] [address] Hodgkin lymphoma (HCC) Social History Tobacco Use [...] Disease Staging / Anemia 11:08 AM CDT [facility] Results Cytogenetics Analysis and count of 20 cells (8 cells karyotyped, GTL-banding) from 24-hour unstimulated and 72-hour Interleukin stimulated bone marrow cultures showed the following chromosome pattern: 46,XX[20] Fluorescence In-Situ Hybridization (FISH): Analysis of 200 interphase cells hybridized with specific labeled fluorescent probes*: dual labeled probes* CEP7/[id number] directed onto 7 cent/7q31 showed the following results: nuc mandi (D7Z1,H0Q731)x2[194/ 200] Normal Note: The remaining percentage of cells have signals that either represent G1 cells or endoreduplicated cells of no significance. 5 11:08 AM [facility] Interpretation Female chromosome analysis showing 46,XX with no evidence for any clonal structural or numerical abnormality in all cells examined at 400 average band resolution. One cell had either a deletion of 7q or a broken 7q. To determine if this is significant or clonal, FISH of R1F015/CEP7 was performed on 200 interphase cells on the same slide where this non-clonal metaphase was found. FISH was negative indicating non clonality. Clinicopathological correlation is suggested. 5 11:08 AM [facility] Disclaimer *This test was developed, and its performance characteristics determined by [facility] as required by [...] with cytogenetic findings. 5 11:08 AM CDT [facility] Client Information [facility] - 5 11:08 AM CDT [facility] Other BONE MARROW SPECIMEN / Unknown 06/19/2015 06/19/2015 3:05 PM CDT [facility] LAB - PATHOLOGY/CYTO LOGY ORDERABLES Performing Organization Address City/State/RUST Co de Phone Number [facility] [address] [place] [address] documented in this encounter Visit Diagnoses Diagnosis Hodgkin lymphoma (HCC) Hodgkin's disease, unspecified documented in this encounter
--- OUTSIDE RECORDS SUMMARY | 2024-11-23 17:14 | XMS_ITS | Data Portability ---
Author Organization [place] [facility] OFFICE Address [address] [place] [address] Care Team Providers Care Senior Research Associate Name Role Phone LOUIE MCCOLLUM Primary Care Provider Assessment Encounter Date Assessment Date Assessment LastModified [...] current medications, and medical follow-up as noted. [email or web address] Not available 04/07/2019 12:23:52 04/28/2019 04/28/2019 The [...] mg tablet,de layed release 2018 019 INTERFACE [id number], [address], [place], [place], [id number], 9 12:25:58 Patient Targets Encounter Date Encounter Id Patient Goals Patient Target Last Modified By Organization Details Last Modified Time Scribed by CLEMENT Montoya Not available 03/08/2019 18:17:07 Patient Instructions Encounter Date Encounter Id Patient Instructions Last Modified By Organization Details Last Modified Time 03/08/2019 [id number] high cholesterol : care instructions [email or web address] Not available 03/08/2019 21:59:15 04/07/2019 [id number] high cholesterol : care instructions Not available 04/07/2019 12:25:52 04/28/2019 [id number] high cholesterol : care instructions [email or web address] Not available 04/28/2019 12:38:30 Reason for Referral None Reported. Results Created Date Observation Date Name Description Value Unit Range Abnormal Flag Note LastModifiedBy Organization Detail LastModifiedTime 03/12/20 19 02/24/2019 alix ovalles am No observ ation record ed. Not Available 03/12 12:40:29 03/16/20 19 07/30/2017 US, thyro id No observ ation record ed. [email or web address] Not Available 03/16 16:42:05 03/16/20 19 08/13/2018 US, echoc ardio gram No observ ation record ed. [email or web address] Not Available 03/16 16:46:44 04/07/20 19 03/30/2019 kary can cardi olite stres s test (PROC ) No observ ation record ed. [email or web address] Not Available 2019 08:58:32 04/12/20 19 03/30/2019 kary can cardi olite stres s test (PROC ) No observ ation record ed. [email or web address] Not Available 2018 15:07:38 04/19/20 19 02/24/2019 elect rocar diogr am No observ ation record ed. [email or web address] Not Available 04/19 17:46:03 Result Notes None recorded. Problems Name Problem SNOMED Code Status Onset Date Resolution Date Notes Provider Name and Address Organization Details Recorded Time Hyperlipidemia 59216745 Active 2018 Shruthi Garcia [facility] 9 16:20:20 Diabetes mellitus 83910191 [facility] 16:20:36 Asthma 154334636 Active 2018 Shruthi Garcia [facility] 9 16:20:44 Dyspnea on exertion 49120742 Active 2018 Artis Medina [facility] 9 16:56:39 Problem Notes None recorded. Procedures Surgical History Date Name Laterality Status Provider Name and Address Organization Details Recorded Time Hernia Repair completed Shruthi Garcia [facility] 03/08/2019 16:19:46 Imaging Results Imaging Date Name Status LastModified by Organization Details LastModified Time 02/24/2019 electrocardiogram completed [email or web address] Informa tion not available 03/12/2019 12:40:29 07/30/2017 US, thyroid completed [email or web address] Information n ot available 03/16/2019 16:42:05 08/13/2018 US, echocardiogram completed [email or web address] Inform ation not available 03/16/2019 16:46:44 03/30/2019 lexiscan cardiolite stress test (PROC) completed [email or web address] Information not available 05/02/2020 08:58:32 03/30/2019 lexiscan cardiolite stress test (PROC) completed [email or web address] Information not available 04/12/2019 15:07:38 02/24/2019 electrocardiogram completed [email or web address] Informa tion not available 04/19/2019 17:46:03 Procedure [...] Address Organization Details Last Updated DateTime 9 97073.0 7 g 30.6 kg/m2 172.72 cm 94 /min 94 % 94 % 118 mm[Hg] 78 mm[Hg] [facility] 9 16:31:05 Date Recorded Body height Body mass index (BMI) Body weight Heart rate Oxygen saturation Oxygen saturation in Arterial blood by Pulse oximetry Systolic blood pressure Diastolic blood pressure Provider Name and Address Organization Details Last Updated DateTime 9 172.72 cm 30.3 kg/m2 58460.8 8 g 85 /min 93 % 93 % 124 mm[Hg] 90 mm[Hg] Shruthi [facility] 9 10:58:37 Date Recorded Body height Body mass index (BMI) Body weight Oxygen saturation Oxygen saturation in Arterial blood by Pulse oximetry Heart rate Systolic blood pressure Diastolic blood pressure Provider Name and Address Organization Details Last Updated DateTime 9 172.72 cm 30.3 kg/m2 43313.8 8 g 94 % 94 % 98 /min 128 mm[Hg] 78 mm[Hg] Shruthi [facility] 9 12:21:20 Social History Question Answer Notes LastModified by Organizat ion Details LastModified Time Tobacco Smoking Status Current Every Day Smoker Not Available [facility] 07/11/2020 03:30:42 What Is Your Level Of Caffeine Consumption? Moderate [id number] Information not available 07/11/2020 What Type Of Diet Are You Following? REGULAR [id number] Information not available 07/11/2020 Do You Or Have You Ever Used E-cigarettes Or Vape? Never Used Electronic Cigarettes [id number] Information not available 07/11/2020 Marital Status [email or web address] Informatio n not available 03/08/2019 What Was The Date Of Your Most Recent Tobacco Screening? 03/08/2019 [id number] Information not available 07/11/2020 How Many Children Do You Have? 1 [id number] Information not available 07/11/2020 How Many Years Have You Smoked Tobacco? 37 [id number] Information not available 07/11/2020 Sex: Unknown Functional Status Question Answer Note LastModified by Organization D etails LastModified Time What is your exercise level? None [id number] Information not available 07/11/2020 Mental Status None [...] SNOMED-CT Code Diagnosis ICD10 Code Diagnosis Note [id number] Artis Medina [place] OFF[address] [place] [address] 03/08/2019 15:49:58 03/08/2019 21:59:20 Hyperlipidemia 19374377 E78.2 FLP reviewed and LDL so high that is was unmeasurab le. patient is on Lipitor but may need to change to Crestor/ro suvastatin for better control. Switched to Crestor 20 mg q day. Diabetes mellitus 910627 09 E11.59 Discussed importance of tight glycemic [...] a prescripti on for sublingual nitroglyce rin.}} [address] [facility] OFFICE [address] [place] [address] 04/07/2019 10:31:28 04/07/2019 12:26:12 Dyspnea on exertion 24578411 R06.09 Patient presents with ongoing exertional dyspnea [...] . The patient agrees to proceed at [facility]. {{ The patient was informed about [...] prescripti on for sublingual nitroglyce rin.}} Hyperlipidemia 69253344 E78.2 FLP reviewed and LDL so high that is was unmeasurab le. Patient is on Lipitor but may need to change to Crestor/ro suvastatin for better control. Obtain FLP. Diabetes mellitus 157456 09 E11.59 Discussed importance of tight glycemic control to minimize cardiovasc ular disease progressio n. [address] [facility] [place] OFF[address] [place] [address] 04/28/2019 12:15:42 04/28/2019 12:50:28 Dyspnea on exertion 16377849 R06.09 Patient presents with ongoing exertional dyspnea [...] . The patient agrees to proceed at [facility]. {{ The patient was informed about [...] prescripti on for sublingual nitroglyce rin.}} Hyperlipidemia 44465299 E78.2 FLP reviewed and LDL so high that is was unmeasurab le. Patient is on Lipitor but may need to change to Crestor/ro suvastatin for better control. Obtain FLP. Diabetes mellitus 047158 09 E11.59 Discussed importance of tight glycemic [...] Guarantor Name 03/08/2019 1 [place] Nayeli Stoddard [id number] Nayeli Stoddard 03/08/2019 2 [place] [facility] PUBLIC AID Anyeli Stoddard [id number] Nayeli Stoddard 04/07/2019 1 [place] Nayeli Stoddard [id number] Nayeli Stoddard 04/07/2019 2 [place] [facility] [place] Nayeli Stoddard [id number] Nayeli Stoddard 04/28/2019 1 [place] Naylei Stoddard [id number] Nayeli Stoddard 04/28/2019 2 [place] [facility] [place] [facility] Nayeli Stoddard [id number] Nayeli Stoddard Notes Date Note Type Note Provider Name [...] past: EK02/24/19 Normal sinus rhythm. Artis esposito [facility] 03/08/2019 21:59:19 04/07/2019 text/html [...] followup ultrasound in 12 months. Artis esposito [place] - [facility] 04/07/2019 12:26:10 04/28/2019 text/html cc: BRAUN 53 year-old female with history of Hodgkin's lymphoma, COPD, DM type 2, Hypothyroidism on Synthroid, uncontrolled dyslipidemia, iron-deficiency anemia, presents for follow-up with a chief complaint of dyspnea. Patient was referred last visit for [facility] (done in the setting of continuing [...]
--- OUTSIDE RECORDS SUMMARY | 2024-11-23 17:14 | XMS_ITS | Encounter Summary ---
Author Organization [facility] Address [address] [place] [address] Care Team Providers Care Human Resources Professional Name Role Phone Unavailable Primary Care Provider Unavailabl e Encounter Details Date Type Department Care Team (Late st Contact Info) Description 10/18/2015 Lab Requisition [facility] - Lab Cytogenetics [address] [place] [address] Grover Tam MD [address] [place] [address] Social History Tobacco Use Types Packs/Day Years [...] CYTOGENETICS CANCER PANEL Routine 10/18/2015 12:00 AM WRECKER DRIVER documented in this encounter Results * CYTOGENETICS CANCER PANEL (10/18/2015 12:00 AM WRECKER DRIVER) Indication for Study Hx of Hodgkin's Disease / Anemia / Thrombocytosis 6 6:45 AM [facility] Results Cytogenetics Analysis of 20 cells (8 cells karyotyped, GTL-banding) from 24-hour unstimulated bone marrow cultures showed the following chromosome pattern: 46,XX[20] 6 6:45 AM [facility] Interpretation Female chromosome analysis showing 46,XX with no evidence for any clonal structural or numerical abnormality in all cells examined at 400 average band resolution. 6 6:45 AM [facility] Historical Cytogenomic Report [id number] on 06/27/15 Results Analysis and count of 20 cells (8 cells karyotyped, GTL-banding) from 24-hour unstimulated and 72-hour Interleukin stimulated bone marrow cultures showed the following chromosome pattern: 46,XX[20] Fluorescence In-Situ Hybridization (FISH): Analysis of 200 interphase cells hybridized with specific labeled fluorescent probes*: dual labeled probes* CEP7/[id number] directed onto 7 cent/7q31 showed the following results: nuc mandi (D7Z1,O8K511)x2[194/ 200] Normal Note: The remaining percentage of [...] this is significant or clonal, FISH of [id number]/CEP7 was performed on 200 interphase cells on the same slide where this non-clonal metaphase was found. FISH was negative indicating non clonality. Clinicopathological correlation is suggested. at 1108 . 6 6:45 AM WRECKER DRIVER [facility] Client Information [facility] - 6 6:45 AM WRECKER DRIVER [facility] Other BONE MARROW SPECIMEN / Unknown 10/18/2015 10/18/2015 3:25 PM WRECKER DRIVER Grover Tam MD LAB - PATHOLOGY/CY TOLOGY ORDERABLES [facility] [address] [place], [place] [id number] documented in this encounter Visit Diagnoses Not on filedocumented in this encounter
--- OUTSIDE RECORDS SUMMARY | 2024-11-23 17:14 | XMS_ITS | Clinical Summary ---
Author Organization [facility] Address [address] [place] [address] Care Team Providers Care Skull Grinder Name Role Phone Biju Whyte MD Primary Care Provider [phone] Allergies Active Allergy Reactions Criticality Noted Date [...] Due Date Last Done Comments PNEUMOCOCCAL VACCINE 0-49 YE ARS (1 of 2 - PCV) [...] Most Recently Relevant to Health Maintenance Insurance [facility] [id number] MEDICAID [place] Care Teams Skull Grinder Relationship Specialty Start Date End Date Biju Whyte MD PCP - General Emergency Medicine 05/28/19
--- OUTSIDE RECORDS SUMMARY | 2024-11-23 17:14 | XMS_ITS | CONTINUITY OF CARE DOCUMENT ---
Author Name sergio karenjuan Address Unknown Organization [facility] Address [address] [place] [address] Phone [phone] Care Team Providers Care Methods Time Analyst Name Role Phone Wang South MD Unavailable LOUIE MCCOLLUM MD Unavailable [phone] LOUIE MCCOLLUM MD Unavailable [phone] PROBLEMS Condition Status Date Provider Notes Hypercholesterolemia active Wang South MD Family History of Hyperlipidemia: active ? Us sonal South MD COPD active Wang South MD Shortness of breath active Wang South MD ENCOUNTERS Date Type Provider Location Encounter Diag nosis - In-person encounter Office Visit Wang South MD [place] [facility] HypercholesterolemiaFamily History of Hyperlipidemia:COPDShortness of breath [...] Payer name Policy type / Coverage type [facility] ID HEALTHCARE AND FAMILY SERVICES Medicaid 1 [id number] [place] MEDIC[place] Medicare [id number] ADVANCE DIRECTIVES Name Date DISCUSSED - NO [...]
--- OUTSIDE RECORDS SUMMARY | 2024-11-23 17:14 | XMS_ITS | Clinical Summary ---
Author Organization [facility] Address [address] [place] [address] Care Team Providers Care Bottle Tester Name Role Phone Biju Whyte MD Primary Care Provider [phone] Allergies Active Allergy Reactions Criticality Noted Date [...] Comments Blood Pressure 97/63 11/05/2022 1:25 PM SPOUT LINER HELPER Pulse 69 11/05/2022 1:25 PM SPOUT LINER HELPER Temperature 36.1 C (96.9 F) 11/05/2022 12:59 PM SPOUT LINER HELPER Respiratory Rate 28 11/05/2022 1:25 PM SPOUT LINER HELPER Oxygen Saturation 95% 11/05/2022 1:25 PM SPOUT LINER HELPER Inhaled Oxygen Concentration - - Weight 81.6 kg (180 lb) 10/30/2022 12:44 PM SPOUT LINER HELPER Height 172.7 cm (5' 8 ) 10/30/2022 12:44 PM SPOUT LINER HELPER Body Mass Index 27.37 10/30/2022 12:44 PM SPOUT LINER HELPER Plan of Treatment Health Maintenance Due Date [...] Diagnosis Comments COLONOSCOPY Routine 11/05/2022 10:31 AM SPOUT LINER HELPER from Last 3 Months or Most Recently Relevant to Health Maintenance Insurance MEDICARE MEDICAID [facility] Care Teams Bottle Tester Relationship Specialty Start Date End Date Biju Whyte MD [address] [place] [id number] PCP - General FAMILY PRACTICE 10/10/17
--- OUTSIDE RECORDS SUMMARY | 2024-11-23 17:14 | XMS_ITS | Clinical Summary ---
Author Organization [facility] Address [address] [place] [address] Phone Care Team Providers Care Director Park Name Role Phone Biju Whyte MD Primary Care Provider [phone] Allergies Active Allergy Reactions Criticality Noted Date [...] 12/03/2018 Assessment & Plan (09/30/2020 7:18 PM DINING SERVICES DIRECTOR): Continue with supplemental oxygen at night. Assessment & Plan (03/29/2020 1:34 PM CDT): Overnight pulse oximetry shows significant desaturations. Will recertify her for 3 L of supplemental oxygen at night. Assessment & Plan (02/26/2020 2:57 PM CDT): Continue with 3 L of supplemental oxygen at night.Will obtain overnight pulse oximetry for recertification of nocturnal oxygen. Assessment & Plan (09/17/2019 5:24 PM DINING SERVICES DIRECTOR): Continue with 3 L of supplemental oxygen at night. Assessment & Plan (03/11/2019 3:01 PM CDT): Continue with 3 L of oxygen at night. Smoking 12/03/2018 Assessment & Plan (09/30/2020 7:18 PM DINING SERVICES DIRECTOR): Patient was advised to quit smoking. Obtain records of CT scan of the chest done at [facility]. Assessment & Plan (03/29/2020 1:34 PM CDT): Patient was advised to quit smoking. She is scheduled for repeat CT scan of the chest for lung cancer screening before her next visit. Assessment & Plan (02/26/2020 2:58 PM CDT): Will obtain CT scan of the chest with her next visit for lung cancer screening. Assessment & Plan (09/17/2019 5:25 PM DINING SERVICES DIRECTOR): Patient continued to smoke. She was advised [...] disease) Assessment & Plan (09/30/2020 7:18 PM DINING SERVICES DIRECTOR): Continue with Symbicort and p.r.n. duo nebs/albuterol inhaler. Assessment & Plan (03/29/2020 1:34 PM CDT): Continue with Symbicort, duo nebs and p.r.n. albuterol inhaler. Assessment & Plan (02/26/2020 2:58 PM CDT): CONTINUE WITH SYMBICORT AND P.R.N. ALBUTEROL INHALER. Assessment & Plan (09/17/2019 5:25 PM DINING SERVICES DIRECTOR): Continue with Symbicort and albuterol inhaler. Currently [...] on file Legal Sex Female 1:00 AM DINING SERVICES DIRECTOR Gender Identity Not on file Sexual Orientation Not on file Obstetrics History Last Filed Vital Signs Vital Sign Reading Time Taken Comments Blood Pressure 100/78 09/28/2020 9:22 AM DINING SERVICES DIRECTOR Pulse 73 09/28/2020 9:22 AM DINING SERVICES DIRECTOR Temperature 35.8 C (96.4 F) 09/28/2020 9:22 AM DINING SERVICES DIRECTOR Respiratory Rate 18 09/28/2020 9:22 AM DINING SERVICES DIRECTOR Oxygen Saturation 93% 09/28/2020 9:22 AM DINING SERVICES DIRECTOR Inhaled Oxygen Concentration - - Weight 88.9 kg (196 lb) 09/28/2020 9:22 AM DINING SERVICES DIRECTOR Height 172.7 cm (5' 8 ) 09/15/2019 1:37 PM DINING SERVICES DIRECTOR Body Mass Index 29.8 09/15/2019 1:37 PM DINING SERVICES DIRECTOR Plan of Treatment Not on file Insurance MEDICARE IDPA [employer]ARE [employer] IDPA Care Teams Director Park Relationship Specialty Start Date End Date Biju Whyte MD PCP - General Emergency Medicine 12/03/18
== END 2024-11-23 15:13 | disposition home or self-care (01) ==
LOC: ANHSURGERY 15:19
PROVIDERS: PCP Student in an Organized Health Care Education/Training Program; Visit Provider Otolaryngology Otolaryngology/Facial Plastic Surgery
DX: Z01.818 Encounter for other preprocedural examination (principal); E11.9 Type 2 diabetes mellitus without complications; R94.31 Abnormal electrocardiogram [ECG] [EKG]
CPT/HCPCS: 93005

== ENCOUNTER 2024-11-26 00:04 | Day surgery (SDC) | payer MEDICARE, MEDICAID, SELFPAY ==
--- NOTE | 2024-11-22 14:15 | PC.NURSE ---
Report to the Outpatient Waiting Room, entrance under the green pavilion located off [facility], at time _9:30 AM on date _11/26/24 . Planned Procedure Time: __11:30 AM .? Time changes happen often and if your time is changed the preop area will call you the afternoon before. - You and your visitor will be asked to self-screen and do not enter if you have any COVID symptoms. Please call surgeon if you need to reschedule. - A mask is optional within the hospital at this time. Patients may have clear liquids (water, carbonated beverages, clear teas, apple juice) until 3 hours prior to surgery ( 8:30 AM) with a maximum of 20 ounces. - No food from midnight until time of surgery and no smoking, or chewing tobacco (or any form of nicotine). No chewing gum, candy or mints. Take only the following medications with a SIP of water on the morning of surgery: _INHALER,LEVOTHYROXINE DO NOT STOP ANY OF YOUR OTHER PRESCRIPTION MEDICATIONS PRIOR TO SURGERY EXCEPT THE FOLLOWING Hold all vitamins and supplements for 3 days per anesthesiologist. Medications to discontinue per physician ___ASPIRIN PER DR STRICKLAND Date to take last dose Please no make-up, nail pitcairn islander, hairspray, perfume, deodorant, or body powder the day of surgery.? No jewelry (including any body piercings) or valuables the day of surgery, leave them at home.? Please take a shower or bath the night before, or the morning of, surgery with an antibacterial soap.? Wear comfortable, loose fitting clothing.? Children are encouraged to wear pajamas. - Jewelry must be removed prior to entering the operating room.? Rings and piercings that are not removed may be cut off. - The hospital will not accept responsibility for valuables.? - Please leave all valuables, including medications, at home the day of surgery. If you are going home after surgery, a licensed rolloff driver must drive you home.? - NO public transportation without another adult if you receive anesthesia. - We recommend that an adult stay with you for 24 hours following discharge. - We also recommend that you do not drive, make important decision, drink alcoholic beverages, or take any drugs that were not prescribed by your health care provider for at least 24 hours after your discharge time. Follow any additional instructions given to you from your surgeon. Telephone instructions given to _PATIENT and asked if any additional questions and then verbalized understanding. Patient advised to call surgeon office or pre surgery nurse liaison [phone] if any additional questions.
[2024-11-22 14:38] VITALS: BMI 26.6
[2024-11-26] VITALS (8 sets, daily range): BP systolic 93–119; BP diastolic 54–74; PULSE 65–77; RESP 16–20; TEMP 36.1–36.4; O2SAT 94–97
--- OUTSIDE RECORDS SUMMARY | 2024-11-26 00:07 | XMS_ITS | Clinical Summary ---
Author Organization [facility] Address [address] [address] Care Team Providers Care Maintenance Assistant Name Role Phone Biju Whyte MD Primary Care Provider [phone] Allergies Active Allergy Reactions Criticality Noted Date [...] Flex Sig/CT Colonography Q 5 years 2009 PAP SMEAR 07/27/2022 07/27/2019 INFLUENZA VACCINE (#1) 2024 RSV [...] SCREENING (06/10/2019) Anatomical Region Laterality Modality Chest Computed Tomogra phy Elio Castellanos MD CT ORDERABLES Final Result from Last 3 Months or Most Recently Relevant to Health Maintenance Insurance [facility] [id number] MEDICAID [place] Care Teams Maintenance Assistant Relationship Specialty Start Date End Date Biju Whyte MD PCP - General Emergency Medicine 05/28/19
--- OUTSIDE RECORDS SUMMARY | 2024-11-26 00:07 | XMS_ITS | Referral Summary ---
Author Organization [facility] Address [address] [place] [address] Phone Care Team Providers Care Water Proofer Name Role Phone Biju Whyte MD Primary Care Provider [phone] Allergies Active Allergy Reactions Criticality Noted Date [...] 12/03/2018 Assessment & Plan (09/30/2020 7:18 PM RECREATIONAL SPECIALIST): Continue with supplemental oxygen at night. Assessment & Plan (03/29/2020 1:34 PM CDT): Overnight pulse oximetry shows significant desaturations. Will recertify her for 3 L of supplemental oxygen at night. Assessment & Plan (02/26/2020 2:57 PM CDT): Continue with 3 L of supplemental oxygen at night.Will obtain overnight pulse oximetry for recertification of nocturnal oxygen. Assessment & Plan (09/17/2019 5:24 PM RECREATIONAL SPECIALIST): Continue with 3 L of supplemental oxygen at night. Assessment & Plan (03/11/2019 3:01 PM CDT): Continue with 3 L of oxygen at night. Smoking 12/03/2018 Assessment & Plan (09/30/2020 7:18 PM RECREATIONAL SPECIALIST): Patient was advised to quit smoking. Obtain records of CT scan of the chest done at [facility]. Assessment & Plan (03/29/2020 1:34 PM CDT): Patient was advised to quit smoking. She is scheduled for repeat CT scan of the chest for lung cancer screening before her next visit. Assessment & Plan (02/26/2020 2:58 PM CDT): Will obtain CT scan of the chest with her next visit for lung cancer screening. Assessment & Plan (09/17/2019 5:25 PM RECREATIONAL SPECIALIST): Patient continued to smoke. She was advised [...] disease) Assessment & Plan (09/30/2020 7:18 PM RECREATIONAL SPECIALIST): Continue with Symbicort and p.r.n. duo nebs/albuterol inhaler. Assessment & Plan (03/29/2020 1:34 PM CDT): Continue with Symbicort, duo nebs and p.r.n. albuterol inhaler. Assessment & Plan (02/26/2020 2:58 PM CDT): CONTINUE WITH SYMBICORT AND P.R.N. ALBUTEROL INHALER. Assessment & Plan (09/17/2019 5:25 PM RECREATIONAL SPECIALIST): Continue with Symbicort and albuterol inhaler. Currently [...] on file Legal Sex Female 1:00 AM RECREATIONAL SPECIALIST Gender Identity Not on file Sexual Orientation Not on file Last Filed Vital Signs Vital Sign Reading Time Taken Comments Blood Pressure 100/78 09/28/2020 9:22 AM RECREATIONAL SPECIALIST Pulse 73 09/28/2020 9:22 AM RECREATIONAL SPECIALIST Temperature 35.8 C (96.4 F) 09/28/2020 9:22 AM RECREATIONAL SPECIALIST Respiratory Rate 18 09/28/2020 9:22 AM RECREATIONAL SPECIALIST Oxygen Saturation 93% 09/28/2020 9:22 AM RECREATIONAL SPECIALIST Inhaled Oxygen Concentration - - Weight 88.9 kg (196 lb) 09/28/2020 9:22 AM RECREATIONAL SPECIALIST Height 172.7 cm (5' 8 ) 09/15/2019 1:37 PM RECREATIONAL SPECIALIST Body Mass Index 29.8 09/15/2019 1:37 PM RECREATIONAL SPECIALIST Plan of Treatment Not on file Insurance MEDICARE IDPA [facility] MEDICARE ADVANTAGE IDPA Care Teams Water Proofer Relationship Specialty Start Date End Date Biju Whyte MD PCP - General Emergency Medicine 12/03/18
--- OUTSIDE RECORDS SUMMARY | 2024-11-26 00:07 | XMS_ITS | Clinical Summary ---
Author Organization [facility] Address [address] [place] [address] Care Team Providers Care Corporate Vp Advertising & Online Name Role Phone Biju Whyte MD Primary Care Provider [phone] Allergies Active Allergy Reactions Criticality Noted Date [...] Comments Blood Pressure 97/63 11/05/2022 1:25 PM SECONDARY MARKET MANAGER Pulse 69 11/05/2022 1:25 PM SECONDARY MARKET MANAGER Temperature 36.1 C (96.9 F) 11/05/2022 12:59 PM SECONDARY MARKET MANAGER Respiratory Rate 28 11/05/2022 1:25 PM SECONDARY MARKET MANAGER Oxygen Saturation 95% 11/05/2022 1:25 PM SECONDARY MARKET MANAGER Inhaled Oxygen Concentration - - Weight 81.6 kg (180 lb) 10/30/2022 12:44 PM SECONDARY MARKET MANAGER Height 172.7 cm (5' 8 ) 10/30/2022 12:44 PM SECONDARY MARKET MANAGER Body Mass Index 27.37 10/30/2022 12:44 PM SECONDARY MARKET MANAGER Plan of Treatment Health Maintenance Due Date [...] Diagnosis Comments COLONOSCOPY Routine 11/05/2022 10:31 AM SECONDARY MARKET MANAGER from Last 3 Months or Most Recently Relevant to Health Maintenance Insurance MEDICARE MEDICAID [facility] Care Teams Corporate Vp Advertising & Online Relationship Specialty Start Date End Date Biju Whyte MD [address] [place] [id number] PCP - General FAMILY PRACTICE 10/10/17
--- OUTSIDE RECORDS SUMMARY | 2024-11-26 00:07 | XMS_ITS | Encounter Summary ---
Author Organization [facility] Address [address] [place] [address] Care Team Providers Care Treasury Assistant Name Role Phone Unavailable Primary Care Provider Unavailabl e Encounter Details Date Type Department Care Team (Late st Contact Info) Description 10/18/2015 Lab Requisition [facility] - Lab Cytogenetics [address] [place] [address] Grover Tam MD [address] [place] [id number] Social History Tobacco Use Types Packs/Day Years [...] CYTOGENETICS CANCER PANEL Routine 10/18/2015 12:00 AM LEAD SOFTWARE TEST ENGINEER documented in this encounter Results * CYTOGENETICS CANCER PANEL (10/18/2015 12:00 AM LEAD SOFTWARE TEST ENGINEER) Indication for Study Hx of Hodgkin's Disease / Anemia / Thrombocytosis 6 6:45 AM [facility] CYTOGENOMIC LAB Results Cytogenetics Analysis of 20 cells (8 cells karyotyped, GTL-banding) from 24-hour unstimulated bone marrow cultures showed the following chromosome pattern: 46,XX[20] 6 6:45 AM [facility] CYTOGENOMIC LAB Interpretation Female chromosome analysis showing 46,XX with no evidence for any clonal structural or numerical abnormality in all cells examined at 400 average band resolution. 6 6:45 AM [facility] CYTOGENOMIC LAB Historical Cytogenomic Report [id number] on 06/27/15 Results Analysis and count of 20 cells (8 cells karyotyped, GTL-banding) from 24-hour unstimulated and 72-hour Interleukin stimulated bone marrow cultures showed the following chromosome pattern: 46,XX[20] Fluorescence In-Situ Hybridization (FISH): Analysis of 200 interphase cells hybridized with specific labeled fluorescent probes*: dual labeled probes* CEP7/[id number] directed onto 7 cent/7q31 showed the following results: nuc mandi (D7Z1,N5O795)x2[194/ 200] Normal Note: The remaining percentage of [...] this is significant or clonal, FISH of D5V023/CEP7 was performed on 200 interphase cells on the same slide where this non-clonal metaphase was found. FISH was negative indicating non clonality. Clinicopathological correlation is suggested. at 1108 . 6 6:45 AM LEAD SOFTWARE TEST ENGINEER [facility] MOLECULAR CYTOGENOMIC LAB Client Information [facility] - 6 6:45 AM LEAD SOFTWARE TEST ENGINEER [facility] MOLEC[facility] CYTOGENOMIC LAB Other BONE MARROW SPECIMEN / Unknown 10/18/2015 10/18/2015 3:25 PM LEAD SOFTWARE TEST ENGINEER Grover Tam MD LAB - PATHOLOGY/CY TOLOGY ORDERABLES [facility]LE[facility] CYTOGENOMIC LAB [address] [place], [place] [id number] documented in this encounter Visit Diagnoses Not on filedocumented in this encounter
--- OUTSIDE RECORDS SUMMARY | 2024-11-26 00:07 | XMS_ITS | Encounter Summary ---
Author Organization [facility] Address [address] [facility] [place] [address] Care Team Providers Care Washer Cutter Name Role Phone Unavailable Primary Care Provider Unavailabl e Encounter Details Date Type Department Care Team (Late st Contact Info) Description 06/19/2015 Lab Requisition [facility] - Lab Cytogenetics [address] [place] [address] Piter Ponce [address] [place] [address] Hodgkin lymphoma Social History Tobacco Use Types Packs/Day Years [...] for Study Hodgkin's Disease Staging / Anemia 5 11:08 AM CDT [facility] CYTOGENOMIC LAB Results Cytogenetics Analysis and count of 20 cells (8 cells karyotyped, GTL-banding) from 24-hour unstimulated and 72-hour Interleukin stimulated bone marrow cultures showed the following chromosome pattern: 46,XX[20] Fluorescence In-Situ Hybridization (FISH): Analysis of 200 interphase cells hybridized with specific labeled fluorescent probes*: dual labeled probes* CEP7/[id number] directed onto 7 cent/7q31 showed the following results: nuc mandi (D7Z1,Q0H917)x2[194/ 200] Normal Note: The remaining percentage of cells have signals that either represent G1 cells or endoreduplicated cells of no significance. 5 11:08 AM [facility] MOLECULAR CYTOGENOMIC LAB Interpretation Female chromosome analysis showing 46,XX with no evidence for any clonal structural or numerical abnormality in all cells examined at 400 average band resolution. One cell had either a deletion of 7q or a broken 7q. To determine if this is significant or clonal, FISH of J8X482/CEP7 was performed on 200 interphase cells on the same slide where this non-clonal metaphase was found. FISH was negative indicating non clonality. Clinicopathological correlation is suggested. 5 11:08 AM [facility] MOLECULAR CYTOGENOMIC LAB Disclaimer *This test was developed, and its performance characteristics determined by [facility] Molecular Cytogenetics Laboratory as required by [...] with cytogenetic findings. 5 11:08 AM CDT [facility] CYTOGENOMIC LAB Client Information [facility] - 5 11:08 AM CDT [facility]LE[facility] CYTOGENOMIC LAB Other BONE MARROW SPECIMEN / Unknown 06/19/2015 06/19/2015 3:05 PM CDT P[facility] LAB - PATHOLOGY/CYTO LOGY ORDERABLES [facility]LE[facility] CYTOGENOMIC LAB [address] [place] [address] documented in this encounter Visit Diagnoses Diagnosis Hodgkin lymphoma (HCC) Hodgkin's disease, unspecified documented in this encounter
--- OUTSIDE RECORDS SUMMARY | 2024-11-26 00:07 | XMS_ITS | Data Portability ---
Author Organization [facility] Address [address] [place] [address] Care Team Providers Care Professional Athlete Name Role Phone LOUIE MCCOLLUM Primary Care [...] current medications, and medical follow-up as noted. [email or web address] Not available 04/07/2019 12:23:52 04/28/2019 04/28/2019 The [...] mg tablet,de layed release 2018 019 INTERFACE [id number], [address], [place], [place], [id number], 9 12:25:58 Patient Targets Encounter Date Encounter Id Patient Goals Patient Target Last Modified By Organization Details Last Modified Time Scribed by CLEMENT Montoya Not available 03/08/2019 18:17:07 Patient Instructions Encounter Date Encounter Id Patient Instructions Last Modified By Organization Details Last Modified Time 03/08/2019 [id number] high cholesterol : care instructions [email or web address] Not available 03/08/2019 21:59:15 04/07/2019 [id number] high cholesterol : care instructions [email or web address] Not available 04/07/2019 12:25:52 04/28/2019 [id number] high cholesterol : care instructions [email or web address] Not available 04/28/2019 12:38:30 Reason for Referral None Reported. Results Created Date Observation Date Name Description Value Unit Range Abnormal Flag Note LastModifiedBy Organization Detail LastModifiedTime 03/12/20 19 02/24/2019 alix ovalles am No observ ation record ed. [email or web address] Not Available 03/12 12:40:29 03/16/20 19 07/30/2017 US, thyro id No observ ation record ed. [email or web address] Not Available 03/16 16:42:05 03/16/20 19 08/13/2018 US, echoc ardio gram No observ ation record ed. [email or web address] Not Available 03/16 16:46:44 04/07/20 19 03/30/2019 kary can cardi olite stres s test (PROC ) No observ ation record ed. Not Available 2019 08:58:32 04/12/20 19 03/30/2019 kary can cardi olite stres s test (PROC ) No observ ation record ed. [email or web address] Not Available 2018 15:07:38 04/19/20 19 02/24/2019 elect rocar diogr am No observ ation record ed. [email or web address] Not Available 04/19 17:46:03 Result Notes None recorded. Problems Name Problem SNOMED Code Status Onset Date Resolution Date Notes Provider Name and Address Organization Details Recorded Time Hyperlipidemia 20084602 Active 2018 Shruthi Garcia [facility] 9 16:20:20 Diabetes mellitus 14334417 [facility] 16:[facility]:36 Asthma 738740006 Active 2018 Shruthi Garcia [facility] 9 16:20:44 Dyspnea on exertion 59874016 Active 2018 Artis Medina [facility] 9 16:56:39 Problem Notes None recorded. Procedures Surgical History Date Name Laterality Status Provider Name and Address Organization Details Recorded Time Hernia Repair completed Shruthi Garcia [facility] 03/08/2019 16:19:46 Imaging Results Imaging Date Name Status LastModified by Organization Details LastModified Time 02/24/2019 electrocardiogram completed [email or web address] Informa tion not available 03/12/2019 12:40:29 07/30/2017 US, thyroid completed [email or web address] Information n ot available 03/16/2019 16:42:05 08/13/2018 US, echocardiogram completed [email or web address] Inform ation not available 03/16/2019 16:46:44 03/30/2019 lexiscan cardiolite stress test (PROC) completed [email or web address] Information not available 05/02/2020 08:58:32 03/30/2019 lexiscan cardiolite stress test (PROC) completed [email or web address] Information not available 04/12/2019 15:07:38 02/24/2019 electrocardiogram completed [email or web address] Informa tion not available 04/19/2019 17:46:03 Procedure [...] Address Organization Details Last Updated DateTime 9 [address]206.0 7 g 30.6 kg/m2 172.72 cm 94 /min 94 % 94 % 118 mm[Hg] 78 mm[Hg] [facility] 9 16:31:05 Date Recorded Body height Body mass index (BMI) Body weight Heart rate Oxygen saturation Oxygen saturation in Arterial blood by Pulse oximetry Systolic blood pressure Diastolic blood pressure Provider Name and Address Organization Details Last Updated DateTime 9 172.72 cm 30.3 kg/m2 48138.8 8 g 85 /min 93 % 93 % 124 mm[Hg] 90 mm[Hg] Shruthi [facility] 9 10:58:37 Date Recorded Body height Body mass index (BMI) Body weight Oxygen saturation Oxygen saturation in Arterial blood by Pulse oximetry Heart rate Systolic blood pressure Diastolic blood pressure Provider Name and Address Organization Details Last Updated DateTime 9 172.72 cm 30.3 kg/m2 91231.8 8 g 94 % 94 % 98 /min 128 mm[Hg] 78 mm[Hg] Shruthi [facility] 9 12:21:20 Social History Question Answer Notes LastModified by Organizat ion Details LastModified Time Tobacco Smoking Status Current Every Day Smoker Not Available [facility] 07/11/2020 03:30:42 What Is Your Level Of Caffeine Consumption? Moderate [id number] Information not available 07/11/2020 What Type Of Diet Are You Following? REGULAR [id number] Information not available 07/11/2020 Do You Or Have You Ever Used E-cigarettes Or Vape? Never Used Electronic Cigarettes [id number] Information not available 07/11/2020 Marital Status [email or web address] Informatio n not available 03/08/2019 What Was The Date Of Your Most Recent Tobacco Screening? 03/08/2019 [id number] Information not available 07/11/2020 How Many Children Do You Have? 1 [id number] Information not available 07/11/2020 How Many Years Have You Smoked Tobacco? 37 [id number] Information not available 07/11/2020 Sex: Unknown Functional Status Question Answer Note LastModified by Organization D etails LastModified Time What is your exercise level? None [id number] Information not available 07/11/2020 Mental Status None [...] SNOMED-CT Code Diagnosis ICD10 Code Diagnosis Note [id number] Artis Medina [facility] OFF[facility] [address] [place] [address] 03/08/2019 15:49:58 03/08/2019 21:59:20 Hyperlipidemia 86980398 E78.2 FLP reviewed and LDL so high that is was unmeasurab le. patient is on Lipitor but may need to change to Crestor/ro suvastatin for better control. Switched to Crestor 20 mg q day. Diabetes mellitus 073797 09 E11.59 Discussed importance of tight glycemic [...] a prescripti on for sublingual nitroglyce rin.}} [address] [facility] OFFICE [address] [place] [address] 04/07/2019 10:31:28 04/07/2019 12:26:12 Dyspnea on exertion 42591432 R06.09 Patient presents with ongoing exertional dyspnea [...] . The patient agrees to proceed at [facility]. {{ The patient was informed about heart [...] prescripti on for sublingual nitroglyce rin.}} Hyperlipidemia 23841870 E78.2 FLP reviewed and LDL so high that is was unmeasurab le. Patient is on Lipitor but may need to change to Crestor/ro suvastatin for better control. Obtain FLP. Diabetes mellitus 192217 09 E11.59 Discussed importance of tight glycemic control to minimize cardiovasc ular disease progressio n. [address] [place] [facility] OFF[address] [place] [address] 04/28/2019 12:15:42 04/28/2019 12:50:28 Dyspnea on exertion 11992168 R06.09 Patient presents with ongoing exertional dyspnea [...] . The patient agrees to proceed at [facility]. {{ The patient was informed about heart [...] prescripti on for sublingual nitroglyce rin.}} Hyperlipidemia 67347317 E78.2 FLP reviewed and LDL so high that is was unmeasurab le. Patient is on Lipitor but may need to change to Crestor/ro suvastatin for better control. Obtain FLP. Diabetes mellitus 022784 09 E11.59 Discussed importance of tight glycemic [...] Guarantor Name 03/08/2019 1 [place] [id number] [place] 03/08/2019 2 [place]: [facility] OF PUBLIC AID [place] [id number] [place] [place] 04/07/2019 1 [place] [id number] [place] [place] 04/07/2019 2 [place] [facility] OF PUBLIC AID [place] [id number] [place] [place] 04/28/2019 1 [place] [id number] [place] [place] 04/28/2019 2 [place]: [facility] OF PUBLIC AID [place] [id number] [facility] [place] Notes Date Note Type Note Provider Name [...] past: EK02/24/19 Normal sinus rhythm. Artis esposito [facility] 03/08/2019 21:59:19 04/07/2019 [...] followup ultrasound in [address] - [facility] 04/07/2019 12:26:10 04/28/2019 text/html cc: BRAUN 53 year-old female with history of Hodgkin's lymphoma, COPD, DM type 2, Hypothyroidism on Synthroid, uncontrolled dyslipidemia, iron-deficiency anemia, presents for follow-up with a chief complaint of dyspnea. Patient was referred last visit for [facility] (done in the setting of continuing [...]
--- OUTSIDE RECORDS SUMMARY | 2024-11-26 00:07 | XMS_ITS | Clinical Summary ---
Author Organization [facility] [employer] Address [address] [place] [address] Care Team Providers Care Front End Software Developer Name Role Phone Unavailable Primary Care Provider Unavailabl e Source Comments [facility] [employer]non-owned Affiliates and Associated Physician Practices is amultiple site organization consisting of ambulatory clinics and hospital sitesin [place], [place], [place] and [place]. This disclosure is being madepursuant to the Care Everywhere program and may not contain all information available regarding this patient. Last updated 18.[facility] [employer] Social History Tobacco Use Types Packs/Day Years Used Date Smoking Tobacco: Never Assessed Sex and Gender Information Value Date Recorded Sex Assigned at Not on file Gender Identity Not on file Sexual Orientation Not on file Last Filed Vital Signs Vital Sign Reading Time Taken Comments Blood Pressure 114/72 09/05/2015 10:19 AM CONTINUOUS IMPROVEMENT CONSULTANT Pulse 101 09/05/2015 10:19 AM CONTINUOUS IMPROVEMENT CONSULTANT Temperature 36.7 C (98.1 F) 09/05/2015 10:19 AM CONTINUOUS IMPROVEMENT CONSULTANT Respiratory Rate 18 09/05/2015 10:19 AM CONTINUOUS IMPROVEMENT CONSULTANT Oxygen Saturation 93% 09/05/2015 10:19 AM CONTINUOUS IMPROVEMENT CONSULTANT Inhaled Oxygen Concentration - - Weight 83.5 kg (184 lb) 09/05/2015 10:19 AM CONTINUOUS IMPROVEMENT CONSULTANT Height 172.7 cm (5' 8 ) 08/28/2015 9:15 AM CONTINUOUS IMPROVEMENT CONSULTANT Body Mass Index 27.98 08/28/2015 9:15 AM CONTINUOUS IMPROVEMENT CONSULTANT Plan of Treatment Health Maintenance Due [...]
--- OUTSIDE RECORDS SUMMARY | 2024-11-26 00:07 | XMS_ITS | Clinical Summary ---
Author Organization [facility] Address [address] [place] [address] Phone Care Team Providers Care Can Feeder Name Role Phone Biju Whyte MD Primary Care Provider [phone] Allergies Active Allergy Reactions Criticality Noted Date [...] 12/03/2018 Assessment & Plan (09/30/2020 7:18 PM THEATER SET PRODUCTION DESIGNER): Continue with supplemental oxygen at night. Assessment & Plan (03/29/2020 1:34 PM CDT): Overnight pulse oximetry shows significant desaturations. Will recertify her for 3 L of supplemental oxygen at night. Assessment & Plan (02/26/2020 2:57 PM CDT): Continue with 3 L of supplemental oxygen at night.Will obtain overnight pulse oximetry for recertification of nocturnal oxygen. Assessment & Plan (09/17/2019 5:24 PM THEATER SET PRODUCTION DESIGNER): Continue with 3 L of supplemental oxygen at night. Assessment & Plan (03/11/2019 3:01 PM CDT): Continue with 3 L of oxygen at night. Smoking 12/03/2018 Assessment & Plan (09/30/2020 7:18 PM THEATER SET PRODUCTION DESIGNER): Patient was advised to quit smoking. Obtain records of CT scan of the chest done at [facility]. Assessment & Plan (03/29/2020 1:34 PM CDT): Patient was advised to quit smoking. She is scheduled for repeat CT scan of the chest for lung cancer screening before her next visit. Assessment & Plan (02/26/2020 2:58 PM CDT): Will obtain CT scan of the chest with her next visit for lung cancer screening. Assessment & Plan (09/17/2019 5:25 PM THEATER SET PRODUCTION DESIGNER): Patient continued to smoke. She was advised [...] disease) Assessment & Plan (09/30/2020 7:18 PM THEATER SET PRODUCTION DESIGNER): Continue with Symbicort and p.r.n. duo nebs/albuterol inhaler. Assessment & Plan (03/29/2020 1:34 PM CDT): Continue with Symbicort, duo nebs and p.r.n. albuterol inhaler. Assessment & Plan (02/26/2020 2:58 PM CDT): CONTINUE WITH SYMBICORT AND P.R.N. ALBUTEROL INHALER. Assessment & Plan (09/17/2019 5:25 PM THEATER SET PRODUCTION DESIGNER): Continue with Symbicort and albuterol inhaler. Currently [...] on file Legal Sex Female 1:00 AM THEATER SET PRODUCTION DESIGNER Gender Identity Not on file Sexual Orientation Not on file Obstetrics History Last Filed Vital Signs Vital Sign Reading Time Taken Comments Blood Pressure 100/78 09/28/2020 9:22 AM THEATER SET PRODUCTION DESIGNER Pulse 73 09/28/2020 9:22 AM THEATER SET PRODUCTION DESIGNER Temperature 35.8 C (96.4 F) 09/28/2020 9:22 AM THEATER SET PRODUCTION DESIGNER Respiratory Rate 18 09/28/2020 9:22 AM THEATER SET PRODUCTION DESIGNER Oxygen Saturation 93% 09/28/2020 9:22 AM THEATER SET PRODUCTION DESIGNER Inhaled Oxygen Concentration - - Weight 88.9 kg (196 lb) 09/28/2020 9:22 AM THEATER SET PRODUCTION DESIGNER Height 172.7 cm (5' 8 ) 09/15/2019 1:37 PM THEATER SET PRODUCTION DESIGNER Body Mass Index 29.8 09/15/2019 1:37 PM THEATER SET PRODUCTION DESIGNER Plan of Treatment Not on file Insurance MEDICARE IDPA [facility] MEDICARE ADVANTAGE IDPA Care Teams Can Feeder Relationship Specialty Start Date End Date Biju Whyte MD PCP - General Emergency Medicine 12/03/18
--- OUTSIDE RECORDS SUMMARY | 2024-11-26 00:07 | XMS_ITS | CONTINUITY OF CARE DOCUMENT ---
Author Name sergio karenjuan Address Unknown Organization [facility] Address [address] [place] [address] Phone [phone] Care Team Providers Care Assistant Store Leader Name Role Phone Wang South MD Unavailable [phone] LOUIE MCCOLLUM MD Unavailable [phone] LOUIE MCCOLLUM MD Unavailable [phone] PROBLEMS Condition Status Date Provider Notes Hypercholesterolemia active Wang South MD Family History of Hyperlipidemia: active ? Us sonal South MD COPD active Wang South MD Shortness of breath active Wang South MD ENCOUNTERS Date Type Provider Location Encounter Diag nosis - In-person encounter Office Visit Wang South MD [facility] HypercholesterolemiaFamily History of Hyperlipidemia:COPDShortness of breath [...] Payer name Policy type / Coverage type [facility] [place] HEALTHCARE AND FAMILY SERVICES Medicaid 1 [id number] [place] [employer] Medicare [id number] ADVANCE DIRECTIVES Name Date DISCUSSED - NO [...]
--- NOTE | 2024-11-26 05:44 | P.HP_ITS ---
H&P: HPI History of Present Illness Date/Time: 11/26/24 05:44 Chief Complaint: left side throat growth Narrative: 59-year-old female with chronic tonsillitis, tonsil stones, and left-sided oropharyngeal growth Review of Systems Constitutional: Constitutional: Reports as per HPI ENT: Reports as per HPI Respiratory: Respiratory: Reports as per HPI Gastrointestinal: Gastrointestinal: Reports as per HPI [facility] Past Medical History Medical History (Updated 11/19/24 @ 15:46 by Andres Perez MD) Tonsil stone Oropharyngeal mass Type 2 diabetes mellitus Dyslipidemia COPD with emphysema Transient ischemic attack (2009) 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 Gastroesophageal reflux disease Hepatic steatosis Hiatal hernia Recurrent hiatal hernia despite Lora. Chronic respiratory failure with hypoxia, on home O2 therapy Tobacco abuse History of gastric ulcer Hodgkin lymphoma (2014) Asthma Surgical History Surgical History History of cardiac catheterization History of right inguinal hernia repair History of lymph node biopsy Left anterior cervical chain, resection of the left submandibular gland due to increased uptake on PET scan and pathology was negative. History of submandibular gland removal History of open reduction and internal fixation (ORIF) procedure Repair left 4th finger fracture. History of hysterectomy with unilateral oophorectomy For cervical dysplasia. History of Lora fundoplication History of cardiac cath History of appendectomy History of bone marrow biopsy History of removal of Port-a-Cath Right chest Family History Family History Father Diabetes mellitus Hypertension Age older than 80 years Grandparent Lymphoma Other Ovarian cancer Mother Scoliosis Osteoporosis Age greater than 75 years Other Family history of cardiovascular disease Family history of malignant neoplasm Social History Social History Social History: Surrogate medical decision maker: Yamile Brumfield, daughter. Code status: Full code however she would not want to remain on a ventilator for long-term. Smoking packs per day: 0.25 Smoking cigarettes per day: 5.0 Years smoked: 45 Smoking pack-years: 11.25 Smoking status: Current every day smoker Second hand tobacco smoke exposure: Yes Additional smoking assessment comments: Smokes 1 to 2 packs a day. Alcohol intake: never Substance use: never Substance use type: does not use Do You Feel Safe in your Home?: Yes Lack of Transportation: No Lack of Food: Never True Current Housing: I Have Housing Concerned About Future Housing: No Difficulty Paying Gas/Electric Bills: No Difficulty Paying for Meds: No Currently Unemployed: YES Education: High School Diploma/GED Difficulty w/ Childcare or Family Care: Decline to Answer Living arrangements: alone Additional living arrangements comments: Lives in [place]. with 1 daughter. Occupation/Education: other Additional occupation/education comments: Disabled. Gender identity (if verbalized by the patient): Female Sexual Orientation (if Verbalized by the Patient): Straight or Heterosexual Spiritual care concerns: No Meds Home Medications and Allergies Home Medications ?Medication ?Instructions ?Recorded ?Confirmed ?Type albuterol sulfate 90 mcg/actuation 2 inh inhalation QID PRN shortness 09/18/22 11/22/24 Rx aerosol inhaler of breath or wheezing #8.5 grams albuterol sulfate 90 mcg/actuation 2 inh inhalation QID PRN shortness 03/20/23 11/22/24 Rx aerosol inhaler of breath or wheezing #8.5 grams blood sugar diagnostic (True #100 ea 03/20/23 11/19/24 Rx Metrix Glucose Test Strip) pen needle, diabetic 32 gauge x #100 ea 05/22/23 11/19/24 Rx 5/32 (Aqinject Pen Needle) blood-glucose sensor (FreeStyle #2 ea 06/27/23 11/19/24 Rx Vik 3 Sensor device) gabapentin 300 mg capsule 300 mg PO TID #270 caps 05/20/24 11/22/24 Rx levothyroxine 112 mcg tablet 112 mcg PO DAILY #90 tabs 05/20/24 11/22/24 Rx albuterol sulfate 90 mcg/actuation 2 inh inhalation Q4H PRN shortness 05/26/24 11/22/24 Rx aerosol inhaler of breath or wheezing #8.5 grams budesonide 160 mcg-glycopyr 9 2 inh inhalation BID #10.7 grams 05/26/24 11/22/24 Rx mcg-formot 4.8 mcg/actuation HFA inhaler (Breztri Aerosphere) Toujeo Max U-300 SoloStar 300 60 unit (0.2 mL) subcut DAILY #9 mL 07/13/24 11/22/24 Rx unit/mL (3 mL) subcutaneous insulin pen (insulin glargine U-300 conc) pantoprazole 40 mg tablet,delayed 40 mg PO QAM #90 tabs 07/13/24 11/22/24 Rx release varenicline tartrate 0.5 mg tablet See Rx Instructions PO DIRECTED 08/25/24 11/22/24 Rx #55 tabs metformin 1,000 mg tablet See Rx Instructions .Route 08/30/24 11/22/24 Rx .COMPLEX #180 tabs empagliflozin 25 mg tablet See Rx Instructions .Route 10/07/24 11/22/24 Rx (Jardiance) .COMPLEX #90 tabs aspirin 81 mg tablet,delayed 81 mg PO DAILY 10/20/24 11/22/24 History release (Adult Aspirin Regimen) triamcinolone acetonide 0.1 % 1 applic topical BID #30 grams 10/20/24 11/22/24 Rx topical cream Allergies Allergy/AdvReac Type Severity Reaction Status Date / Time latex Allergy Mild ITCHING Verified 11/22/24 14:16 Cdxwbdt-XBI-IcH Reductase AdvReac Intermediate elevated Verified 11/22/24 14:16 Inhibitor liver enzymes Exam Const: General: cooperative, healthy appearing, comfortable, no acute distress, alert and awake HENMT: Head: normocephalic and atraumatic Ears: external ears normal and EAC's normal Face/Nose/Sinus: Normal external nose present and Normal nares present Mouth: Yes Normal oral and palatal mucosa present and Yes lip normal Other: left side oropharyngeal lesion recurrent tonsil stones Eyes: General: appearance normal, both eyes and all related structures Neck: Neck: normal visual inspection Resp: Effort & Inspection: normal respiratory effort and able to speak in complete sentences Assessment and Plan Assessment and plan (1) Lesion of tonsil: Code(s): J35.9 - Chronic disease of tonsils and adenoids, unspecified Status: Acute (2) Tonsil stone: Code(s): J35.8 - Other chronic diseases of tonsils and adenoids Status: Acute (3) Oropharyngeal mass: Code(s): J39.2 - Other diseases of pharynx Status: Acute Plan 59-year-old female with chronic tonsillitis, tonsil stones, and left-sided oropharyngeal growth left side polypoid mass protruding from behind the left posterior tonsillar pillar chronically inflamed tonsils could not evaluate the laryngopharynx do to excessive gag reflex and secretions will order tonsillectomy -Risks for tonsillectomy were discussed including but not limited to bleeding infection, injury to teeth, gums, lips and/or tongue. TMJ problems. Delayed bleeding that may require further surgery. All the questions were answered to the best of my ability and the patient wished to proceed. The procedures will be scheduled in a timely fashion. will order direct laryngoscopy with biopsy from the oropharynx Risks for direct laryngoscopy : bleeding, infection, injury to teeth, gums, lips and/or tongue, recurrent disease, increasing hoarseness, loss of airway and possible need for further surgery A thorough discussion with the patient including physical exam findings,diagnosis and the treatment plan ,all questions were answered to the best of my knowledge ,patient agreed to the diagnosis ,and wanted to go ahead with the treatment plan.
--- NOTE | 2024-11-26 10:00 | WPDANESEPPF ---
Anes - Initial Pre Proc Eval Procedure: Operation Date: 11/26/24 11:30 Proposed Procedures p Direct Laryngoscopy, with Biopsy of Oropharynx - Andres Perez MD Date/Time: 11/26/24 10:00 Surgeon: Andres Perez MD Pre Op Diagnosis: chronic tonsillitis, oropharyngeal Patient Data Age: 59 Gender: F Height: 1.73 m Weight: 79.4 kg Allergies Allergy/AdvReac Type Severity Reaction Status Date / Time latex Allergy Mild ITCHING Verified 11/22/24 14:16 Qhlmmhr-RCC-OtD Reductase AdvReac Intermediate elevated Verified 11/22/24 14:16 Inhibitor liver enzymes Home Medications ?Medication ?Instructions ?Recorded ?Confirmed ?Type albuterol sulfate 90 mcg/actuation 2 inh inhalation QID PRN shortness 09/18/22 11/22/24 Rx aerosol inhaler of breath or wheezing #8.5 grams albuterol sulfate 90 mcg/actuation 2 inh inhalation QID PRN shortness 03/20/23 11/22/24 Rx aerosol inhaler of breath or wheezing #8.5 grams blood sugar diagnostic (True #100 ea 03/20/23 11/19/24 Rx Metrix Glucose Test Strip) pen needle, diabetic 32 gauge x #100 ea 05/22/23 11/19/24 Rx 5/32 (Aqinject Pen Needle) blood-glucose sensor (FreeStyle #2 ea 06/27/23 11/19/24 Rx Vik 3 Sensor device) gabapentin 300 mg capsule 300 mg PO TID #270 caps 05/20/24 11/22/24 Rx levothyroxine 112 mcg tablet 112 mcg PO DAILY #90 tabs 05/20/24 11/22/24 Rx albuterol sulfate 90 mcg/actuation 2 inh inhalation Q4H PRN shortness 05/26/24 11/22/24 Rx aerosol inhaler of breath or wheezing #8.5 grams budesonide 160 mcg-glycopyr 9 2 inh inhalation BID #10.7 grams 05/26/24 11/22/24 Rx mcg-formot 4.8 mcg/actuation HFA inhaler (Breztri Aerosphere) Toujeo Max U-300 SoloStar 300 60 unit (0.2 mL) subcut DAILY #9 mL 07/13/24 11/22/24 Rx unit/mL (3 mL) subcutaneous insulin pen (insulin glargine U-300 conc) pantoprazole 40 mg tablet,delayed 40 mg PO QAM #90 tabs 07/13/24 11/22/24 Rx release varenicline tartrate 0.5 mg tablet See Rx Instructions PO DIRECTED 08/25/24 11/22/24 Rx #55 tabs metformin 1,000 mg tablet See Rx Instructions .Route 08/30/24 11/22/24 Rx .COMPLEX #180 tabs empagliflozin 25 mg tablet See Rx Instructions .Route 10/07/24 11/22/24 Rx (Jardiance) .COMPLEX #90 tabs aspirin 81 mg tablet,delayed 81 mg PO DAILY 10/20/24 11/22/24 History release (Adult Aspirin Regimen) triamcinolone acetonide 0.1 % 1 applic topical BID #30 grams 10/20/24 11/22/24 Rx topical cream Patient hx anesthesia problems: none Family hx anesthesia problems: none Results Review: All pre-operative results and documents have been reviewed as part of the pre-operative evaluation. 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 Gastroesophageal reflux disease Hepatic steatosis Hiatal hernia Recurrent hiatal hernia despite Lora. Chronic respiratory failure with hypoxia, on home O2 therapy Tobacco abuse History of gastric ulcer Hodgkin lymphoma (2014) Asthma Surgical History Surgical History History of cardiac catheterization History of right inguinal hernia repair History of lymph node biopsy Left anterior cervical chain, resection of the left submandibular gland due to increased uptake on PET scan and pathology was negative. History of submandibular gland removal History of open reduction and internal fixation (ORIF) procedure Repair left 4th finger fracture. History of hysterectomy with unilateral oophorectomy For cervical dysplasia. History of Lora fundoplication History of cardiac cath History of appendectomy History of bone marrow biopsy History of removal of Port-a-Cath Right chest Family History Family History Father Diabetes mellitus Hypertension Age older than 80 years Grandparent Lymphoma Other Ovarian cancer Mother Scoliosis Osteoporosis Age greater than 75 years Other Family history of cardiovascular disease Family history of malignant neoplasm Social History Social History Social History: Surrogate medical decision maker: Yamile Brumfield, daughter. Code status: Full code however she would not want to remain on a ventilator for long-term. Smoking packs per day: 0.25 Smoking cigarettes per day: 5.0 Years smoked: 45 Smoking pack-years: 11.25 Smoking status: Current every day smoker Second hand tobacco smoke exposure: Yes Additional smoking assessment comments: Smokes 1 to 2 packs a day. Alcohol intake: never Substance use: never Substance use type: does not use Do You Feel Safe in your Home?: Yes Lack of Transportation: No Lack of Food: Never True Current Housing: I Have Housing Concerned About Future Housing: No Difficulty Paying Gas/Electric Bills: No Difficulty Paying for Meds: No Currently Unemployed: YES Education: High School Diploma/GED Difficulty w/ Childcare or Family Care: Decline to Answer Living arrangements: alone Additional living arrangements comments: Lives in [place]. with 1 daughter. Occupation/Education: other Additional occupation/education comments: Disabled. Gender identity (if verbalized by the patient): Female Sexual Orientation (if Verbalized by the Patient): Straight or Heterosexual Spiritual care concerns: No Anes - Eval Final PreProcedure Day of Procedure 11/26/24 10:00 Patient weight: overweight Heart: regular rate and rhythm Lungs: decreased breath sounds Airway: Mallampati scale class II Neurological: alert and oriented Last oral intake: >/= 8 hours ASA classification: IV Emergent: no Anesthetic plan: proceed Anesthesia type and monitoring: general ETT and standard monitoring Results Review: All pre-operative results and documents have been reviewed as part of the pre-operative evaluation. Informed Consent: The patient's anesthetic plan and its attendant risks and benefits were discussed with the patient/family/POA. Questions were solicited and answers provided to the satisfaction of the patient/family/POA.
[2024-11-26] MEDS: LACTATED RINGERS 1,000 ML 30 ML IV CONT ×2 (10:15→13:58)
[2024-11-26 10:19] LABS: Glucose Point of Care 150 mg/dl (65-105)
[2024-11-26] MEDS: ACETAMINOPHEN 500 MG TABLET 1000 MG PO (10:37)
--- NOTE | 2024-11-26 13:16 | WPDHPUPDATE1 ---
History and Physical Update Update Date/Time: 11/26/24 13:16 History and Physical has been reviewed, including an updated exam of the patient. There are NO changes in the patient's condition. Risks, benefits, and alternatives have been discussed and questions answered. Patient agrees to proceed with procedure.
[2024-11-26] MEDS: EPINEPHrine HCL INJ 1 MG/ML AMPUL IRRIGATION (13:36)
--- NOTE | 2024-11-26 14:03 | W.PM.PROC2 ---
Procedure Note - Detailed Date of Procedure 11/26/24 Pre-op Diagnosis chronic tonsillitis, oropharyngeal mass left side Post-op Diagnosis Same Procedure Performed Direct laryngoscopy tonsillectomy Surgeon Andres Perez MD Anesthesia General Indications Chronic tonsillitis Left side oropharyngeal mass Findings -cryptic tonsils -left side polypoid mass was seen in the lower pole of the left tonsil Description of Procedure The patient was seen in the preoperative area. Informed consent was checked and confirmed. The patient was taken to the operating room, sedated and placed under general anesthesia using an endotracheal tube. Eyes were taped and was prepped and draped in the usual sterile fashion, then appropriately positioned for planned surgical procedure. Using laryngoscope which was introduced through the oral cavity to oropharynx then to hypopharynx,no masses were found in the laryngopharynx ?, tongue base was clear as well ,the only mass that was found was on the left lower tonsil pole which was excised together with the tonsil ,no bleeding was noted and the rest of the hypopharynx was free of any other lesions. Laryngoscope was removed without any apparent injury to the hypopharynx, oropharynx, oral cavity, or teeth. Patient was turned to anesthesia for awakening.? A Gini-Dejuan mouth gag was placed in the patient's mouth and opened to reveal tonsils which were?assymetrical in size the left was bigger than the right ,. The palate was normal by visualization and palpation.? The tonsils were grasped with a curved Allis clamp and removed Bizact tonsillectomy cautery.? Hemostasis was secured using Bovie cautery The patient was then allowed to awaken in the OR.? The Patient?? was then extubated and taken to recovery in stable condition. At this point the care of the patient was then transferred to the anesthesiologist where the patient emerged from general anesthesia without complication. EBL: 5 ml - Transferred to PACU? Estimated Blood Loss 5 (ml) Drains No Packing No Pathology Yes (right and left tonsil were sent separately ) Complications No immediate complications Condition Stable Disposition PACU [facility] Billing Surgery - Charge Forward: Surgery Billing
[2024-11-26] MEDS: fentaNYL CITRATE INJ (*CRX) 100 MCG/2 ML VIAL 25 MCG IV PUSH ×4 (14:16→14:41)
[2024-11-26] MEDS: oxyCODONE HCL (*CRX) 5 MG TAB IR PO (15:13)
== END 2024-11-26 15:46 | disposition home or self-care (01) ==
PROVIDERS: PCP Student in an Organized Health Care Education/Training Program; Visit Provider Otolaryngology Otolaryngology/Facial Plastic Surgery
PROC: 0CJS8ZZ Inspection of Larynx, Via Natural or Artificial Opening Endoscopic (ICD-10-PCS; CPT 31525; principal; 2024-11-26 11:30)
PROC: (CPT 31525; 2024-11-26 11:30)
DX: J35.01 Chronic tonsillitis (principal); J39.2 Other diseases of pharynx; E11.9 Type 2 diabetes mellitus without complications; F17.210 Nicotine dependence, cigarettes, uncomplicated
CPT/HCPCS: 31525; 42826; 82948; 88304; A9270; J0171; J0330; J0690; J1100; J2405; J2704; J3010; J7120

== ENCOUNTER 2025-04-02 08:30 | Outpatient (CLI) | payer MEDICARE, SELFPAY ==
--- NOTE | ~2025-04-02 | CT_ITS ---
CLINICAL INDICATION: Nicotine dependence COMPARISON: 04/01/2024. TECHNIQUE: Multiple contiguous axial images of the chest was performed without the administration of intravenous contrast. This CT examination was performed utilizing dose reduction techniques. DLP: 141 mGy-cm FINDINGS/OBSERVATIONS: LUNG:Severe panlobular bullous emphysematous disease demonstrating progression from prior examination . The lungs are otherwise clear. HEART: The heart is of normal size, without pericardial effusion. MEDIASTINUM: No pathologically enlarged or morphologically suspicious lymph nodes are identified within the medias tinum, bilateral axilla, within the soft tissues of the anterior chest wall. Moderate hiatal hernia is redemonstrated. SOFT TISSUES OF THE CHEST: Unremarkable. BONES OF THE CHEST: No acute fracture. No lytic or blastic lesions are identified. IMPRESSION: Severe panlobular bullous emphysematous disease. Lung-RADS category 1: Negative. Continue annual screening with noncontrast low-dose chest CT in 12 mo nths. Reviewed, dictated and finalized at location A. IMPRESSION: Severe panlobular bullous emphysematous disease. Lung-RADS category 1: Negative. Continue annual screening with noncontrast low- dose chest CT in 12 months.
--- OUTSIDE RECORDS SUMMARY | 2025-04-02 08:36 | XMS_ITS | Clinical Summary ---
Author Organization [facility] Address [address] [place] [address] Phone Care Team Providers Care Lithopone Charger Name Role Phone Biju Whyte MD Primary Care Provider [phone] Allergies Active Allergy Reactions Criticality Noted Date [...] 12/03/2018 Assessment & Plan (09/30/2020 7:18 PM SPRING ENCASER): Continue with supplemental oxygen at night. Assessment & Plan (03/29/2020 1:34 PM CDT): Overnight pulse oximetry shows significant desaturations. Will recertify her for 3 L of supplemental oxygen at night. Assessment & Plan (02/26/2020 2:57 PM CDT): Continue with 3 L of supplemental oxygen at night.Will obtain overnight pulse oximetry for recertification of nocturnal oxygen. Assessment & Plan (09/17/2019 5:24 PM SPRING ENCASER): Continue with 3 L of supplemental oxygen at night. Assessment & Plan (03/11/2019 3:01 PM CDT): Continue with 3 L of oxygen at night. Smoking 12/03/2018 Assessment & Plan (09/30/2020 7:18 PM SPRING ENCASER): Patient was advised to quit smoking. Obtain records of CT scan of the chest done at [facility]. Assessment & Plan (03/29/2020 1:34 PM CDT): Patient was advised to quit smoking. She is scheduled for repeat CT scan of the chest for lung cancer screening before her next visit. Assessment & Plan (02/26/2020 2:58 PM CDT): Will obtain CT scan of the chest with her next visit for lung cancer screening. Assessment & Plan (09/17/2019 5:25 PM SPRING ENCASER): Patient continued to smoke. She was advised [...] disease) Assessment & Plan (09/30/2020 7:18 PM SPRING ENCASER): Continue with Symbicort and p.r.n. duo nebs/albuterol inhaler. Assessment & Plan (03/29/2020 1:34 PM CDT): Continue with Symbicort, duo nebs and p.r.n. albuterol inhaler. Assessment & Plan (02/26/2020 2:58 PM CDT): CONTINUE WITH SYMBICORT AND P.R.N. ALBUTEROL INHALER. Assessment & Plan (09/17/2019 5:25 PM SPRING ENCASER): Continue with Symbicort and albuterol inhaler. Currently [...] on file Legal Sex Female 1:00 AM SPRING ENCASER Gender Identity Not on file Sexual Orientation Not on file Obstetrics History Last Filed Vital Signs Vital Sign Reading Time Taken Comments Blood Pressure 100/78 09/28/2020 9:22 AM SPRING ENCASER Pulse 73 09/28/2020 9:22 AM SPRING ENCASER Temperature 35.8 C (96.4 F) 09/28/2020 9:22 AM SPRING ENCASER Respiratory Rate 18 09/28/2020 9:22 AM SPRING ENCASER Oxygen Saturation 93% 09/28/2020 9:22 AM SPRING ENCASER Inhaled Oxygen Concentration - - Weight 88.9 kg (196 lb) 09/28/2020 9:22 AM SPRING ENCASER Height 172.7 cm (5' 8) 09/15/2019 1:37 PM SPRING ENCASER Body Mass Index 29.8 09/15/2019 1:37 PM SPRING ENCASER Plan of Treatment Not on file Insurance MEDICARE IDPA [facility] MEDICARE ADVANTAGE IDPA Care Teams Lithopone Charger Relationship Specialty Start Date End Date Biju Whyte MD PCP - General Emergency Medicine 12/03/18
--- OUTSIDE RECORDS SUMMARY | 2025-04-02 08:36 | XMS_ITS | Clinical Summary ---
Author Organization [facility] [employer] Address [address] [place] [address] Care Team Providers Care Behavioral Therapy Coordinator Name Role Phone Unavailable Primary Care Provider Unavailabl e Source Comments [facility] [employer],non-owned Affiliates and Associated Physician Practices is amultiple site organization consisting of ambulatory clinics and hospital sitesin [place], [place], [place] and [place]. This disclosure is being madepursuant to the Care Everywhere program and may not contain all information available regarding this patient. Last updated 18.[facility] [employer] Social History Tobacco Use Types Packs/Day Years Used Date Smoking Tobacco: Never Assessed Comments Unknown Sex and Gender Information Value Date Recorded Sex Assigned at Not on file Legal Sex Female 3:03 PM CDT Gender Identity Not on file Sexual Orientation Not on file Last Filed Vital Signs Vital Sign Reading Time Taken Comments Blood Pressure 114/72 09/05/2015 10:19 AM RETORT FIRER Pulse 101 09/05/2015 10:19 AM RETORT FIRER Temperature 36.7 C (98.1 F) 09/05/2015 10:19 AM RETORT FIRER Respiratory Rate 18 09/05/2015 10:19 AM RETORT FIRER Oxygen Saturation 93% 09/05/2015 10:19 AM RETORT FIRER Inhaled Oxygen Concentration - - Weight 83.5 kg (184 lb) 09/05/2015 10:19 AM RETORT FIRER Height 172.7 cm (5' 8) 08/28/2015 9:15 AM RETORT FIRER Body Mass Index 27.98 08/28/2015 9:15 AM RETORT FIRER Plan of Treatment Health Maintenance Due Date Last Done Comments COLOGUARD (AGES 45-75) - COL ON CA SCREENING 1964 COLON MONITORING 1964 COLONOSCOPY - COLON CA SCREENING 1964 CT COLONOGRAPHY - COLON CA SCREENING 1964 Colorectal Cancer Screening 1964 FIT - COLON CA SCREENING 1964 FLEX SIG - COLON CA SCREENING 1964 LIPID TESTING 1964 MAMMOGRAM 1964 HIV SCREENING 1979 HEPATITIS C SCREENING 05/13/1982 DTAP/TDAP/TD VACCINES (1 - Tdap) 1983 PNEUMOCOCCAL VACCINE 50+ (1 of 1 - PCV) 2014 ZOSTER VACCINE (1 of 2) 2014 COVID-19 VACCINE (1 - 2023-2 5 season) 2024 DEPRESSION SCREENING 09/08/2024 INFLUENZA VACCINE (#1) 2025 08/28/2015 Respiratory Syncytial Virus (RSV) Vaccine Pt: [...]
--- OUTSIDE RECORDS SUMMARY | 2025-04-02 08:36 | XMS_ITS | Data Portability ---
Author Organization [place] [facility] Address [address] [place] [address] Care Team Providers Care Service Learning Coordinator Name Role Phone LOUIE MCCOLLUM Primary Care Provider [phone] Assessment Encounter Date Assessment Date Assessment LastModified [...] current medications, and medical follow-up as noted. [email or web address] Not available 04/07/2019 12:23:52 04/28/2019 04/28/2019 The [...] mg tablet,de layed release 2018 019 INTERFACE [id number], [address] , [place], [place], [id number], 9 12:25:58 Patient Targets Encounter Date Encounter Id Patient Goals Patient Target Last Modified By Organization Details Last Modified Time 03/08/2019 [id number] Scribed by CLEMENT Montoya Not available 03/08/2019 18:17:07 Patient Instructions Encounter Date Encounter Id Patient Instructions Last Modified By Organization Details Last Modified Time 03/08/2019 [id number] high cholesterol : care instructions [email or web address] Not available 03/08/2019 21:59:15 04/07/2019 [id number] high cholesterol : care instructions Not available 04/07/2019 12:25:52 04/28/2019 [id number] high cholesterol : care instructions [email or web address] Not available 04/28/2019 12:38:30 Reason for Referral None Reported. Results Created Date Observation Date Name Description Value Unit Range Abnormal Flag Note LastModifiedBy Organization Detail LastModifiedTime 03/12/20 19 02/24/2019 elect rocar diogr am No observ ation record ed. [email or web address] Not Available 03/12 12:40:29 03/16/20 19 07/30/2017 US, thyro id No observ ation record ed. [email or web address] Not Available 03/16 16:42:05 03/16/20 19 08/13/2018 US, echoc ardio gram No observ ation record ed. [email or web address] Not Available 03/16 16:46:44 04/07/20 19 03/30/2019 kary can cardi olite stres s test (PROC ) No observ ation record ed. [email or web address] Not Available 2019 08:58:32 04/12/20 19 03/30/2019 kary can cardi olite stres s test (PROC ) No observ ation record ed. [email or web address] Not Available 2018 15:07:38 04/19/20 19 02/24/2019 elect rocar diogr am No observ ation record ed. [email or web address] Not Available 04/19 17:46:03 Result Notes None recorded. Problems Name Problem SNOMED Code Status Onset Date Resolution Date Notes Provider Name and Address Organization Details Recorded Time Hyperlipidemia 59019938 Active 2018 Shruthi Garcia [facility] 9 16:20:20 Diabetes mellitus 46169343 Active 2018 Shruthi Garcia [facility] 9 16:20:36 Asthma 304465137 Active 2018 Shruthi Garcia [facility] 9 16:20:44 Dyspnea on exertion 59627656 Active 2018 Artis Medina [facility] 9 16:56:39 Problem Notes None recorded. Procedures Surgical History Date Name Laterality Status Provider Name and Address Organization Details Recorded Time Hernia Repair completed Shruthi [facility] 03/08/2019 16:19:46 Imaging Results None recorded. Procedure Notes None recorded. Medical Equipment None [...] in Arterial blood by Pulse oximetry Systolic And Diastolic Provider Name and Address Organization Details Last Updated DateTime 9 55317.0 7 g 30.6 kg/m2 172.72 cm 94 /min 94 % 94 % 118/78 mm[Hg] Shruthi Garcia [facility] 9 16:31:05 Date Recorded Body height Body mass index (BMI) Body weight Heart rate Oxygen saturation Oxygen saturation in Arterial blood by Pulse oximetry Systolic And Diastolic Provider Name and Address Organization Details Last Updated DateTime 9 172.72 cm 30.3 kg/m2 32131.8 8 g 85 /min 93 % 93 % 124/90 mm[Hg] Shruthi Garcia [facility] 9 10:58:37 Date Recorded Body height Body mass index (BMI) Body weight Oxygen saturation Oxygen saturation in Arterial blood by Pulse oximetry Heart rate Systolic And Diastolic Provider Name and Address Organization Details Last Updated DateTime 9 172.72 cm 30.3 kg/m2 66086.8 8 g 94 % 94 % 98 /min 128/78 mm[Hg] Shruthi [facility] 9 12:21:20 Social History Question Answer Notes LastModified by [employer] Details LastModified Time Tobacco Smoking Status Current Every Day Smoker Not Available [facility] 03:30:42 What Is Your Level Of Caffeine Consumption? Moderate [id number] Information not available 07/11/2020 What Type Of Diet Are You Following? REGULAR [id number] Information not available 07/11/2020 Marital Status [email or web address] Informatio n not available 03/08/2019 What Was The Date Of Your Most Recent Tobacco Screening? 03/08/2019 [id number] Information not available 07/11/2020 How Many Children Do You Have? 1 [id number] Information not available 07/11/2020 How Many Years Have You Smoked Tobacco? 37 [id number] Information not available 07/11/2020 Sex: Unknown Functional Status Question Answer Note LastModified by [employer] Details LastModified Time Do you or have you ever used e-cigarettes or vape? Never used electronic cigarettes [id number] Information not available 07/11/2020 What is your exercise level? None [id number] Information not available 07/11/2020 Mental Status None [...] SNOMED-CT Code Diagnosis ICD10 Code Diagnosis Note [id number] Artis Medina MD [facility] OFFICE [address] [place] [address] 03/08/2019 15:49:58 03/08/2019 21:59:20 Hyperlipidemia 66392471 E78.2 FLP reviewed and LDL so high that is was unmeasurab le. patient is on Lipitor but may need to change to Crestor/ro suvastatin for better control. Switched to Crestor 20 mg q day. Diabetes mellitus 483032 09 E11.59 Discussed importance of tight glycemic [...] pain. Given the history, exam findings and high cardiac risk factors, I feel additional investigat ion is warranted. I have made arrangemen ts in the near future for a stress nuclear test Lexiscan, subject may have a difficult time with treadmill stress. The procedure was discussed with the patient, and risks, benefits, and alternativ e options were explained. Appropriat e labwork has been performed recently and has been evaluated FLP, CBC, CMP, I have asked the patient to curtail exercise and activities until our investigat ion is complete. I have made the following There have been no adjustment s at this time to the present medical regimen. [id number] Artis Medina MD [facility] OFFICE [address] [place] [address] 04/07/2019 10:31:28 04/07/2019 12:26:12 Dyspnea on exertion 13593527 R06.09 Patient presents with ongoing exertional dyspnea [...] . The patient agrees to proceed at [facility]. Appropriat e labwork has been performed recently and has been evaluated FLP, CBC, CMP, PT, PTT. I have asked the patient to curtail exercise and activities until our investigat ion is complete. I have made the following There have been no adjustment s at this time to the present medical regimen. Patient has been started on daily aspirin. Hyperlipidemia 33927778 E78.2 FLP reviewed and LDL so high that is was unmeasurab le. Patient is on Lipitor but may need to change to Crestor/ro suvastatin for better control. Obtain FLP. Diabetes mellitus 732906 E11.59 Discussed importance of tight glycemic control to minimize cardiovasc ular disease progressio n. [id number] Jaquan Gentile MD [address] [place] [address] 04/28/2019 12:15:42 04/28/2019 12:50:28 Dyspnea on exertion 65416021 R06.09 Patient presents with ongoing exertional dyspnea [...] . The patient agrees to proceed at [facility]. Appropriat e labwork has been performed recently and has been evaluated FLP, CBC, CMP, PT, PTT. I have asked the patient to curtail exercise and activities until our investigat ion is complete. I have made the following There have been no adjustment s at this time to the present medical regimen. Patient has been started on daily aspirin. Hyperlipidemia 77720014 E78.2 FLP reviewed and LDL so high that is was unmeasurab le. Patient is on Lipitor but may need to change to Crestor/ro suvastatin for better control. Obtain FLP. Diabetes mellitus 646271 09 E11.59 Discussed importance of tight glycemic control to minimize cardiovasc ular disease progressio n. Health Concerns Section Related Observation LastModified by Organization Detai ls LastModified Time None Recorded Concern Status LastModified by Organization Details LastModified Time None Recorded Advance Directives Directive None Recorded Payers Insurance Date Sequence Insurance Name Policy Number Policy [place] Covered Member ID [place] Member ID Guarantor Name 10/22/2019 1 [place] Nayeli Og [id number] Nayeli [place] 10/22/2019 2 [place] [facility] [place] [facility] Nayeli Og [id number] Nayeli Og Notes Date Note Type Note Provider Name [...] systolic function no valvular disease, LVEF 50-60%. No known history of coronary artery disease. No history of previous myocardial infarction. No history of heart failure. No known valvular heart disease. No known arrhythmia. Patient is active, but is not exercising regularly. No arm pain. No neck pain. No nausea and vomiting. No diaphoresis. No shortness of breath at rest. Dyspnea on exertion reported. + fatigue.mild orthopnea. No PND. + leg swelling. No palpitation. No dizziness. No syncope . No pre-syncope. No claudication. No major bleeding events. H/o Non Hogkins lymphoma since 2014 followed had had radiation and chemo Results from this visit, or from the past: EK02/24/19 Normal sinus rhythm. Artis esposito [place] [facility] 03/08/2019 21:59:19 04/07/2019 [...] systolic function no valvular disease, LVEF 50-60%. No known history of coronary artery disease. No history of previous myocardial infarction. No history of heart failure. No known valvular heart disease. No known arrhythmia. Patient is active, but is not exercising regularly. No arm pain. No neck pain. No nausea and vomiting. No diaphoresis. No shortness of breath at rest. Dyspnea on exertion reported. + fatigue.mild orthopnea. No PND. + leg swelling. No palpitation. No dizziness. No syncope . No pre-syncope. No claudication. No major bleeding events. H/o Non Hogkins lymphoma since 2014 followed [...] dyspnea. Patient was referred last visit for [facility] (done in the setting of continuing exertional dyspnea and positive stress test). She returns today for follow up after he procedure. She denies chest pain. She continues to smoke but trying to quit. . Recent echo, with normal systolic function no valvular disease, LVEF 50-60%. No known history of coronary artery disease. No history of previous myocardial infarction. No history of heart failure. No known valvular heart disease. No known arrhythmia. Patient is active, but is not exercising regularly. No arm pain. No neck pain. No nausea and vomiting. No diaphoresis. No shortness of breath at rest. Dyspnea on exertion reported. + fatigue.mild orthopnea. No PND. + leg swelling. No palpitation. No dizziness. No syncope . No pre-syncope. No claudication. No major bleeding events. H/o Non Hogkins lymphoma since 2014 followed [...] pressures. no effusion. IVC not well soon. 11/22/17 US thyroid: multiple small hypo echoic bilateral thyroid nodules measuring 1 cm or less, likely benign. recommend followup ultrasound in 12 months. Patient was seen by Dewayne Proctor and plan discussed with Dr Jaquan Proctor [facility], [place] [facility] 04/28/2019 12:50:26 OBGyn Episode No OBEpisode recorded.
--- OUTSIDE RECORDS SUMMARY | 2025-04-02 08:36 | XMS_ITS | Encounter Summary ---
Author Organization [facility] Address [address] [place] [address] Care Team Providers Care Senior Research Project Manager Name Role Phone Unavailable Primary Care Provider Unavailabl e Encounter Details Date Type Department Care Team (Late st Contact Info) Description 10/18/2015 Lab Requisition [facility] - Lab Cytogenetics [address] [place] [address] Grover Tam MD [address] [place] [address] Social History Tobacco Use Types Packs/Day Years [...] CYTOGENETICS CANCER PANEL Routine 10/18/2015 12:00 AM NAILER HAND documented in this encounter Results * CYTOGENETICS CANCER PANEL (10/18/2015 12:00 AM NAILER HAND) Indication for Study Hx of Hodgkin's Disease / Anemia / Thrombocytosis 6 6:45 AM [facility] CYTOGENOMIC LAB Results Cytogenetics Analysis of 20 cells (8 cells karyotyped, GTL-banding) from 24-hour unstimulated bone marrow cultures showed the following chromosome pattern: 46,XX[20] 6 6:45 AM [facility] CYTOGENOMIC [facility] Interpretation Female chromosome analysis showing 46,XX with no evidence for any clonal structural or numerical abnormality in all cells examined at 400 average band resolution. 6 6:45 AM [facility] CYTOGENOMIC LAB at 0645 NAILER HAND Historical Cytogenomic Report [id number] on 06/27/15 Results Analysis and count of 20 cells (8 cells karyotyped, GTL-banding) from 24-hour unstimulated and 72-hour Interleukin stimulated bone marrow cultures showed the following chromosome pattern: 46,XX[20] Fluorescence In-Situ Hybridization (FISH): Analysis of 200 interphase cells hybridized with specific labeled fluorescent probes*: dual labeled probes* [id number] directed onto 7 cent/7q31 showed the following results: nuc mandi (D7Z1,C5I691)x2[194/ 200] Normal Note: The remaining percentage of [...] this is significant or clonal, FISH of [id number]/[id number] was performed on 200 interphase cells on the same slide where this non-clonal metaphase was found. FISH was negative indicating non clonality. Clinicopathological correlation is suggested. at 1108 . 6 6:45 AM NAILER HAND [facility] CYTOGENOMIC LAB Client Information [facility] - 6 6:45 AM NAILER HAND [facility] CYTOGENOMIC LAB Other BONE MARROW SPECIMEN / Unknown 10/18/2015 10/18/2015 3:25 PM NAILER HAND us Grover Tam MD LAB - PATHOLOGY/CYTOLOGY O RDERABLES Final Result [facility] CYTOGENOMIC [facility] [place] [address] documented in this encounter Visit Diagnoses Not on filedocumented in this encounter
--- OUTSIDE RECORDS SUMMARY | 2025-04-02 08:36 | XMS_ITS | Referral Summary ---
Author Organization [facility] Address [address] [place] [address] Phone Care Team Providers Care Farm Equipment Assembler Name Role Phone Biju Whyte MD Primary Care Provider [phone] Allergies Active Allergy Reactions Criticality Noted Date [...] 12/03/2018 Assessment & Plan (09/30/2020 7:18 PM PATIENT CARE MANAGER): Continue with supplemental oxygen at night. Assessment & Plan (03/29/2020 1:34 PM CDT): Overnight pulse oximetry shows significant desaturations. Will recertify her for 3 L of supplemental oxygen at night. Assessment & Plan (02/26/2020 2:57 PM CDT): Continue with 3 L of supplemental oxygen at night.Will obtain overnight pulse oximetry for recertification of nocturnal oxygen. Assessment & Plan (09/17/2019 5:24 PM PATIENT CARE MANAGER): Continue with 3 L of supplemental oxygen at night. Assessment & Plan (03/11/2019 3:01 PM CDT): Continue with 3 L of oxygen at night. Smoking 12/03/2018 Assessment & Plan (09/30/2020 7:18 PM PATIENT CARE MANAGER): Patient was advised to quit smoking. Obtain records of CT scan of the chest done at [facility]. Assessment & Plan (03/29/2020 1:34 PM CDT): Patient was advised to quit smoking. She is scheduled for repeat CT scan of the chest for lung cancer screening before her next visit. Assessment & Plan (02/26/2020 2:58 PM CDT): Will obtain CT scan of the chest with her next visit for lung cancer screening. Assessment & Plan (09/17/2019 5:25 PM PATIENT CARE MANAGER): Patient continued to smoke. She was advised [...] disease) Assessment & Plan (09/30/2020 7:18 PM PATIENT CARE MANAGER): Continue with Symbicort and p.r.n. duo nebs/albuterol inhaler. Assessment & Plan (03/29/2020 1:34 PM CDT): Continue with Symbicort, duo nebs and p.r.n. albuterol inhaler. Assessment & Plan (02/26/2020 2:58 PM CDT): CONTINUE WITH SYMBICORT AND P.R.N. ALBUTEROL INHALER. Assessment & Plan (09/17/2019 5:25 PM PATIENT CARE MANAGER): Continue with Symbicort and albuterol inhaler. Currently [...] on file Legal Sex Female 1:00 AM PATIENT CARE MANAGER Gender Identity Not on file Sexual Orientation Not on file Last Filed Vital Signs Vital Sign Reading Time Taken Comments Blood Pressure 100/78 09/28/2020 9:22 AM PATIENT CARE MANAGER Pulse 73 09/28/2020 9:22 AM PATIENT CARE MANAGER Temperature 35.8 C (96.4 F) 09/28/2020 9:22 AM PATIENT CARE MANAGER Respiratory Rate 18 09/28/2020 9:22 AM PATIENT CARE MANAGER Oxygen Saturation 93% 09/28/2020 9:22 AM PATIENT CARE MANAGER Inhaled Oxygen Concentration - - Weight 88.9 kg (196 lb) 09/28/2020 9:22 AM PATIENT CARE MANAGER Height 172.7 cm (5' 8) 09/15/2019 1:37 PM PATIENT CARE MANAGER Body Mass Index 29.8 09/15/2019 1:37 PM PATIENT CARE MANAGER Plan of Treatment Not on file Insurance MEDICARE IDPA [facility] MEDICARE ADVANTAGE IDPA Care Teams Farm Equipment Assembler Relationship Specialty Start Date End Date Biju Whyte MD PCP - General Emergency Medicine 12/03/18
--- OUTSIDE RECORDS SUMMARY | 2025-04-02 08:36 | XMS_ITS | Clinical Summary ---
Author Organization [facility] Address [address] [place] [address] Care Team Providers Care Procurement Clerk Name Role Phone Biju Whyte MD Primary Care Provider [phone] Allergies Active Allergy Reactions Criticality Noted Date [...] Comments Blood Pressure 97/63 11/05/2022 1:25 PM LENDING CONSULTANT Pulse 69 11/05/2022 1:25 PM LENDING CONSULTANT Temperature 36.1 C (96.9 F) 11/05/2022 12:59 PM LENDING CONSULTANT Respiratory Rate 28 11/05/2022 1:25 PM LENDING CONSULTANT Oxygen Saturation 95% 11/05/2022 1:25 PM LENDING CONSULTANT Inhaled Oxygen Concentration - - Weight 81.6 kg (180 lb) 10/30/2022 12:44 PM LENDING CONSULTANT Height 172.7 cm (5' 8) 10/30/2022 12:44 PM LENDING CONSULTANT Body Mass Index 27.37 10/30/2022 12:44 PM LENDING CONSULTANT Plan of Treatment Health Maintenance Due Date Last Done Comments Annual Physical 1967 Hepatitis C 1982 DTaP, Tdap and Td Vaccines ( 1 - Tdap) 1983 Pneumococcal Vaccine: 50+ Years (1 of 2 - PCV) 1983 Mammogram Screening 2004 Zoster Vaccines (1 of 2) 2014 COVID-19 Vaccine (2 - 2023-2 5 season) 2024 11/14/2020 Colorectal Cancer Screening Colonoscopy (10 Years) 11/05/2032 [...] Diagnosis Comments COLONOSCOPY Routine 11/05/2022 10:31 AM LENDING CONSULTANT from Last 3 Months or Most Recently Relevant to Health Maintenance Insurance MEDICARE MEDICAID [facility] Care Teams Procurement Clerk Relationship Specialty Start Date End Date Biju Whyte MD [address] [place] [id number] PCP - General FAMILY PRACTICE 10/10/17
--- OUTSIDE RECORDS SUMMARY | 2025-04-02 08:36 | XMS_ITS | Clinical Summary ---
Author Organization [facility] Address [address] [address] Care Team Providers Care Heavy Duty Diesel Mechanic Name Role Phone Biju Whyte MD Primary Care Provider [phone] Allergies Active Allergy Reactions Criticality Noted Date [...] A M CDT Height 172.7 cm (5' 8) 04/16/2021 9:55 AM CDT Body Mass Index 30 04/16/2021 9:55 AM CDT Plan of Treatment Health Maintenance Due Date Last Done Comments DTAP/TDAP/TD VACCINES (1 - Tdap) 1983 ZOSTER VACCINE (1 of 2) 1983 FIT-DNA Q 3 years 2009 FIT/FOBT Q 1 year 2009 Flex Sig/CT Colonography Q 5 years 2009 BREAST CANCER SCREENING 12/29/2021 12/30/19 21, 11/24/2020, 09/05/2020, Additional history exists PAP SMEAR 07/27/2022 07/27/2019 RSV VACCINE (60+ or ) (1 - Risk 60-74 years 1-dose series) 2024 CERVICAL CANCER SCREENING 07/27/2024 HPV/Cotest (21-29) 07/27/2024 07/27/2019 HPV/Cotest (30-65) 07/27/2024 07/27/2019 INFLUENZA VACCINE (#1) 2025 COLORECTAL SCREENING 09/17/2027 09/17/2017 Colorectal Cancer Screening [...] Most Recently Relevant to Health Maintenance Insurance [facility] [id number] MEDICAID [place] Care Teams Heavy Duty Diesel Mechanic Relationship Specialty Start Date End Date Biju Whyte MD PCP - General Emergency Medicine 05/28/19
--- OUTSIDE RECORDS SUMMARY | 2025-04-02 08:36 | XMS_ITS | Encounter Summary ---
Author Organization [facility] Address [address] [place] [address] Care Team Providers Care Helper Teacher Name Role Phone Unavailable Primary Care Provider Unavailabl e Encounter Details Date Type Department Care Team (Late st Contact Info) Description 06/19/2015 Lab Requisition [facility] - Lab Cytogenetics [address] [place] [address] [facility] [address] [place] [address] Hodgkin lymphoma Social History Tobacco Use Types [...] Disease Staging / Anemia 11:08 AM CDT [facility] Results Cytogenetics Analysis and count of 20 cells (8 cells karyotyped, GTL-banding) from 24-hour unstimulated and 72-hour Interleukin stimulated bone marrow cultures showed the following chromosome pattern: 46,XX[20] Fluorescence In-Situ Hybridization (FISH): Analysis of 200 interphase cells hybridized with specific labeled fluorescent probes*: dual labeled probes* [id number] directed onto 7 cent/7q31 showed the following results: nuc mandi (D7Z1,F9S924)x2[194/ 200] Normal Note: The remaining percentage of cells have signals that either represent G1 cells or endoreduplicated cells of no significance. 5 11:08 AM CDT [facility] Interpretation Female chromosome analysis showing 46,XX with no evidence for any clonal structural or numerical abnormality in all cells examined at 400 average band resolution. One cell had either a deletion of 7q or a broken 7q. To determine if this is significant or clonal, FISH of [id number]/CEP7 was performed on 200 interphase cells on the same slide where this non-clonal metaphase was found. FISH was negative indicating non clonality. Clinicopathological correlation is suggested. 5 11:08 AM CDT [facility] at 1108 CDT Disclaimer *This test was developed, and its performance characteristics determined by [facility] Molecular Cytogenetics Laboratory as required by [...] with cytogenetic findings. 5 11:08 AM CDT [facility] Client Information [facility] - 5 11:08 AM CDT [facility] Other BONE MARROW SPECIMEN / Unknown 06/19/2015 06/19/2015 3:05 PM CDT [facility] - PATHOLOGY/CYTOLOGY ORDERAB LES Final Result [facility] [address] [place] [address] documented in this encounter Visit Diagnoses Diagnosis Hodgkin lymphoma (HCC) Hodgkin's disease, unspecified documented in this encounter
== END 2025-04-02 08:31 | disposition home or self-care (01) ==
PROVIDERS: Visit Provider Internal Medicine Pulmonary Disease
DX: Z12.2 Encounter for screening for malignant neoplasm of respiratory organs (principal); Z87.891 Personal history of nicotine dependence; J43.1 Panlobular emphysema
CPT/HCPCS: 71271

== ENCOUNTER 2025-08-27 09:34 | Outpatient (CLI) | payer MEDICARE, SELFPAY ==
--- NOTE | ~2025-08-27 | US_ITS ---
EXAMINATION: US aorta DATE: 08/27/2025 11:14 BRICK PAVER INDICATION: Smoking history. Aneurysm seen on prior CT examination. TECHNIQUE: Grayscale, color Doppler, and pulsed Doppler images of the aorta and common iliac arteries were obtained. COMPARISON: CT dated 08/28/2024. FINDINGS: The proximal aorta measures 2.6 cm greatest sagittal dimension. The mid aorta measures 2.1 cm greatest sagittal dimension. The distal aorta measures 3.3 cm greatest sagittal dimension. The right common internal iliac artery measures 1.5 cm. The left common iliac artery measures 1.0 cm. IMPRESSION: 1. Infrarenal abdominal aortic aneurysm measuring 3.3 cm. 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 Reviewed, dictated and finalized at location O. K PAVER
--- OUTSIDE RECORDS SUMMARY | 2025-08-27 09:38 | XMS_ITS | Data Portability ---
Author Organization [place] [facility] OFFICE Address [address] [place] [address] Care Team Providers Care Manager Transport Name Role Phone LOUIE MCCOLLUM Primary Care [...] current medications, and medical follow-up as noted. [email or web address] Not available 04/07/2019 12:23:52 04/28/2019 04/28/2019 The [...] mg tablet,de layed release [address] [facility] [id number] [address] , [place], [place], [id number], 9 12:25:58 Patient Targets Encounter Date Encounter Id Patient Goals Patient Target Last Modified By Organization Details Last Modified Time 03/08/2019 [id number] Scribed by CLEMENT Montoya Not available 03/08/2019 18:17:07 Patient Instructions Encounter Date Encounter Id Patient Instructions Last Modified By Organization Details Last Modified Time 03/08/2019 [id number] high cholesterol : care instructions [email or web address] Not available 03/08/2019 21:59:15 04/07/2019 [id number] high cholesterol : care instructions [email or web address] Not available 04/07/2019 12:25:52 04/28/2019 [id number] high cholesterol : care instructions [email or web address] Not available 04/28/2019 12:38:30 Reason for Referral None Reported. Results Created Date Observation Date Name Description Value Unit Range Abnormal Flag Note LastModifiedBy Organization Detail LastModifiedTime 03/12/20 19 02/24/2019 elect rocar diogr am No observ ation record ed. [email or web address] Not Available 03/12 12:40:29 03/16/20 19 07/30/2017 US, thyro id No observ ation record ed. [email or web address] Not Available 03/16 16:42:05 03/16/20 19 08/13/2018 US, echoc ardio gram No observ ation record ed. [email or web address] Not Available 03/16 16:46:44 04/07/20 19 03/30/2019 kary can cardi olite stres s test (PROC ) No observ ation record ed. [email or web address] Not Available 2019 08:58:32 04/12/20 19 03/30/2019 kary can cardi olite stres s test (PROC ) No observ ation record ed. [email or web address] Not Available 2018 15:07:38 04/19/20 19 02/24/2019 elect rocar diogr am No observ ation record ed. [email or web address] Not Available 04/19 17:46:03 Result Notes None recorded. Problems Name Problem SNOMED Code Status Onset Date Resolution Date Notes Provider Name and Address Organization Details Recorded Time Hyperlipidemia 24749505 Active 2018 Shruthi Garcia [facility] 9 16:20:20 Diabetes mellitus 06056791 Active 2018 Shruthi Garcia [facility] 9 16:20:36 Asthma 727230151 Active 2018 Shruthi Garcia [facility] 9 16:20:44 Dyspnea on exertion 33244883 Active 2018 Artis Medina [facility] 9 16:56:39 Problem Notes None recorded. Procedures Surgical History Date Name Laterality Status Provider Name and Address Organization Details Recorded Time Hernia Repair completed Shruthi Garcia [facility] 03/08/2019 16:19:46 Imaging Results None recorded. Procedure [...] (BMI) Body height Heart rate Oxygen saturation Systolic And Diastolic Provider Name and Address Organization Details Last Updated DateTime 9 37050.0 7 g 30.6 kg/m2 172.72 cm 94 /min 94 % 118/78 mm[Hg] Shruthi Garcia [place] [facility] 9 16:31:05 Date Recorded Body height Body mass index (BMI) Body weight Heart rate Oxygen saturation Systolic And Diastolic Provider Name and Address Organization Details Last Updated DateTime 9 172.72 cm 30.3 kg/m2 75927.8 8 g 85 /min 93 % 124/90 mm[Hg] Shruthi Sueehr [facility] 9 10:58:37 Date Recorded Body height Body mass index (BMI) Body weight Oxygen saturation Heart rate Systolic And Diastolic Provider Name and Address Organization Details Last Updated DateTime 9 172.72 cm 30.3 kg/m2 81025.8 8 g 94 % 98 /min 128/78 mm[Hg] Shruthi Garcia [facility] 9 12:21:20 Social History Question Answer Notes LastModified by [employer] Details LastModified Time Tobacco Smoking Status Current Every Day Smoker Not Available [facility] 07/11/2020 03:30:42 What Is Your Level Of Caffeine Consumption? Moderate [id number] Information not available 07/11/2020 What Type Of Diet Are You Following? REGULAR [id number] Information not available 07/11/2020 Marital Status [email or web address] Informatio n not available 03/08/2019 What Was The Date Of Your Most Recent Tobacco Screening? 03/08/2019 [id number] Information not available 07/11/2020 How Many Children Do You Have? 1 [id number] Information not available 07/11/2020 How Many Years Have You Smoked Tobacco? 37 [id number] Information not available 07/11/2020 Sex: Unknown Functional Status Question Answer Note LastModified by [employer] Details LastModified Time Do you or have you ever used e-cigarettes or vape? Never used electronic cigarettes [id number] Information not available 07/11/2020 What is your exercise level? None [id number] Information not available 07/11/2020 Mental Status None [...] Diagnosis SNOMED-CT Code Diagnosis ICD10 Code Diagnosis IMO Codes Diagnosis Note 33042 Artis Medina MD [facility] [address] [place] [address] 03/08/2019 15:49:58 03/08/2019 21:59:20 Hyperlipidemia 16125663 E78.2 FLP reviewed and LDL so high that is was unmeasurab le. patient is on Lipitor but may need to change to Crestor/ro suvastatin for better control. Switched to Crestor 20 mg q day. Diabetes mellitus 450380 09 E11.59 Discussed importance of tight glycemic [...] this time to the present medical regimen. 26[address] Artis Medina MD [facility] [address] [place] [address] 04/07/2019 10:31:28 04/07/2019 12:26:12 Dyspnea on exertion 97505741 R06.09 Patient presents with ongoing exertional dyspnea [...] . The patient agrees to proceed at [facility]. Appropriat e labwork has been performed recently and has been evaluated FLP, CBC, CMP, PT, PTT. I have asked the patient to curtail exercise and activities until our investigat ion is complete. I have made the following There have been no adjustment s at this time to the present medical regimen. Patient has been started on daily aspirin. Hyperlipidemia 29716582 E78.2 FLP reviewed and LDL so high that is was unmeasurab le. Patient is on Lipitor but may need to change to Crestor/ro suvastatin for better control. Obtain FLP. Diabetes mellitus 079246 E11.59 Discussed importance of tight glycemic control to minimize cardiovasc ular disease progressio n. 88873 Jaquan Gentile MD [facility] [place] [address] 04/28/2019 12:15:42 04/28/2019 12:50:28 Dyspnea on exertion 38236530 R06.09 Patient presents with ongoing exertional dyspnea [...] . The patient agrees to proceed at [facility]. Appropriat e labwork has been performed recently and has been evaluated FLP, CBC, CMP, PT, PTT. I have asked the patient to curtail exercise and activities until our investigat ion is complete. I have made the following There have been no adjustment s at this time to the present medical regimen. Patient has been started on daily aspirin. Hyperlipidemia 52642132 E78.2 FLP reviewed and LDL so high that is was unmeasurab le. Patient is on Lipitor but may need to change to Crestor/ro suvastatin for better control. Obtain FLP. Diabetes mellitus 516132 E11.59 Discussed importance of tight glycemic control to minimize cardiovasc ular disease progressio n. Health Concerns Section Related Observation LastModified by Organization Detai ls LastModified Time None Recorded Concern Status LastModified by Organization Details LastModified Time None Recorded Advance Directives Directive None Recorded Payers Insurance Date Sequence Insurance Name Policy Number Policy [place] Covered Member ID [place] Member ID Guarantor Name 10/22/2019 1 [place] Nayeli Og [id number] Nayeli Og 10/22/2019 2 [place] [facility] Nayeli Og [id number] Nayeli Og Notes Date Note Type Note [...] from the past: EK02/24/19 Normal sinus rhythm. JESSY Moore - [facility] 03/08/2019 21:59:19 04/07/2019 [...] dyspnea. Patient was referred last visit for [facility] (done in the setting of continuing exertional [...] by Dewayne Proctor and plan discussed with JESSY Strickland - [facility] 04/28/2019 12:50:26 OBGyn Episode No OBEpisode recorded.
== END 2025-08-27 09:35 | disposition home or self-care (01) ==
PROVIDERS: PCP Student in an Organized Health Care Education/Training Program; Visit Provider Student in an Organized Health Care Education/Training Program
DX: I71.43 Infrarenal abdominal aortic aneurysm, without rupture (principal); I72.3 Aneurysm of iliac artery
CPT/HCPCS: 76775